=== PATIENT | female | born 1950 | race Caucasian/White ===

== ENCOUNTER → 2019-10-05 16:16 | Outpatient (BNVA) | payer MEDICARE, SELFPAY | PROVIDERS: Family Provider Nurse Practitioner Family; PCP Nurse Practitioner Family; Visit Provider Obstetrics & Gynecology | DX: R30.0 Dysuria (principal) | CPT/HCPCS: 81000 ==

== ENCOUNTER 2020-05-18 16:18 | Outpatient (CLI) | payer MEDICARE, SELFPAY ==
--- NOTE | 2020-05-18 16:52 | XR_ITS ---
WS: [id number] Chest 2 views, 05/18/2020 Clinical Data: sob Comparison: None. Findings: No nodules, masses or effusions are seen. The heart is normal. The pulmonary vascularity is not increased. No pneumonia or pneumothorax is seen. The aortic arch and descending aorta are minima lly tortuous. XR/XR chest 2V* [id number] Impression: Atherosclerosis.
== END 2020-05-18 16:19 | disposition home or self-care (01) ==
PROVIDERS: PCP Nurse Practitioner Family; Visit Provider Internal Medicine
DX: R06.02 Shortness of breath (principal); I70.90 Unspecified atherosclerosis
CPT/HCPCS: 71046

== ENCOUNTER 2020-05-25 12:58 | Outpatient (CLI) | payer MEDICARE, SELFPAY ==
[2020-05-25 15:23] LABS: Eosinophils % 1.3 %; Hematocrit 25.2 % (37.0-47.0); Hemoglobin 8.3 g/dL (11.5-15.3); Lymphocytes # 1.1 10^3/uL (0.8-4.8); Lymphocytes % 71.8 %; Mean Corpuscular HGB Conc 32.9 g/dL (30.0-36.0); Mean Corpuscular Hemoglobin 36.1 pg (28.0-34.0); Mean Corpuscular Volume 109.6 fL (81-99); Mean Platelet Volume 10.3 fL (7.4-10.4); Monocytes # 0.1 10^3/uL (0.2-0.9); Monocytes % 5.1 %; Neutrophils % 21.8 %; Nucleated Red Blood Cells % 0 %; Platelet Count 78 10^3/cmm (130-400); Red Cell Distribution Width 18.7 % (12.1-15.1); White Blood Count 1.6 10^3/uL (4.0-10.0)
[2020-05-25 15:32] LABS: Neutrophils # 0.34 10^3/uL (1.8-7.7)
[2020-05-25 15:33] LABS: LAB Peripheral Smear Sent for Review
--- NOTE | 2020-05-25 17:39 | ONC CON_ITS ---
Dr. Bradshaw New Patient Note Patient: Eulalia Kaplan Unit #: [id number]: 1950 Dicatated By: Callum Bradshaw M.D.Date of Visit: May 25, 2020 Onc MED New Patient/Consult Referring Physician: Dr. FLORESITA BENJAMIN M.D. Chief Complaint: Pancytopenia. History of Present Illness: This is a 70-year-old woman with pancytopenia and predominant neutropenia. This patient has generally been very healthy. She has been followed by Dr. Frazier in for lichen sclerosis et atrophicus. This was confirmed by biopsy of the vulva and perineum in January 2019 with pathology showing benign lichenoid dermatitis. She also has been getting topical steroid therapy for skin eruption on her legs. She is on medication for anxiety/depression. She has no other ongoing medical illnesses, though she does have a past history of ulcerative colitis, for which she had been on treatment between 1981 in 1995. She also has a history of hyperlipidemia, but she has not required treatment for it. She had recently been seen by Dr. Benjamin with extreme fatigue. Her laboratory studies from 05/17/2020 included a CBC which showed hemoglobin low at 10.3 g with hematocrit 30.4%. The red cell indices were macrocytic with MCV 105 and MCH 35.6. The white blood cell count was low at 2100 with a differential showing 20% neutrophils, 74% lymphocytes, 3% monocytes, 1% eosinophils, and 1% basophils. The platelet count was low at 105,000. Comprehensive metabolic profile showed normal renal function with BUN 16 and creatinine 0.64 mg/dL. The bilirubin and liver enzymes were normal. TSH was normal at 1.490 ???IU/mL. Her sed rate was normal at 5 mm/h, and her CRP was normal at 4 mg/L. Her PHILLIP screen was negative. B12 level was normal at 711 pg/mL. She is seen now for further evaluation. In reviewing her records in [facility], there are no prior blood counts for comparison. She does complain of extreme fatigue. She is exhausted with any activity. Her ECOG score is 2. She has not had good appetite, but her weight is up about 5 pounds. She has not had fever or night sweats. This morning she had chills in association with diarrhea and nausea. She does not complain of cough. She has shortness of breath and during the past 2 days she has been having episodes of pain in her neck and upper chest. She has taken aspirin and Tums for relief. She also reports having a history of vasovagal episodes. They have been very infrequent, but apparently severe. She was having no GI symptoms prior to this morning and she has had no problems with bladder function. She has some joint pain, but mainly just in her knees. She had slight headache this morning and last night. She has no focal neurologic symptoms. Past Medical History: Her medical history includes anxiety, depression, hyperlipidemia, lichen sclerosis et atrophicus, and ulcerative colitis. Past Surgical History: Her surgical/procedural history consists of bilateral cataract excisions and a Caesarean section. Medications: Clobetasol Propionate (0.05 %) Cream Topical Take as Directed, Lexapro 2 (20 mg) Tablet Oral daily, Melatonin 1 (3 mg) Tablet Oral at bedtime Allergies: Amoxicillin, Penicillins, and Sulfa Antibiotics. Social History: Ms. Kaplan is . She is a non-smoker. She does not drink alcohol. Family History: Father of stroke at age 83. Mother at age 82 with dementia. She has 2 brothers. One has diabetes and the other has some type of neurological disorder. One sister of lung cancer at age 62. She was a non-smoker. She has 4 living sisters. One has coronary artery disease and has been treated for vulvar cancer. Review Of Symptoms: Constitutional - She has very fatigued. She gets exhausted with activity. Her appetite has not been good, her weight is up about 5 pounds. She has not had fever, night sweats, or hot flashes. She did have some chills this morning. Her ECOG score is 2, Eyes - She has developed some blurring in her left eye, and she apparently needs laser surgery, ENMT - She has hearing loss. No sinus congestion/drainage. No mouth sores. No sore throat or difficulty swallowing, Hematologic/Lymphatic - She bruises very easily and she says she also bleeds easily, Respiratory - She has shortness of breath. She does not complain of cough. No pleuritic pain or hemoptysis, Cardiovascular - During the past 2 days she has had episodes of pain in her neck and upper chest. No palpitations, Gastrointestinal - She had diarrhea this morning and she also had some nausea with it, but no vomiting. Her bowels have otherwise been normal. She has not been aware of any blood in the stool or black stools, Genitourinary (F) - No dysuria or hematuria. No urinary frequency. No urgency or incontinence. She has been followed by Dr. Frazier for lichen sclerosis et atrophicus, Musculoskeletal - She has had some joint pain, mainly in her knees, Integumentary - She has had an itchy skin eruption on her legs. It is being managed with a topical steroid, Neurologic - She had a slight headache this morning and last night. She has lightheadedness if she gets up too fast. No numbness or tingling. No other focal neurologic symptoms, Psychiatric - She has anxiety and depression. She had recently increased her Lexapro dosage. She sleeps okay with meloxicam. Vital Signs: Performed on May 25, 2020 13:50: 9, 0, 25.83, 1.65 sq.m, 62 in, 97 %, 61 /min, 16 /min, 113/47 mm(hg), 98.0 F (LOW), and 141.2 lbs (HIGH). Physical Examination: Constitutional - She appears somewhat weak generally, Eyes - Sclerae nonicteric. Conjunctivae clear, ENMT - No lesions noted in the oral cavity, Neck - No mass or thyromegaly, Hematologic/Lymphatic - No cervical, clavicular, or axillary adenopathy, Respiratory - Lungs are clear with good air movement bilaterally, Cardiovascular - Heart rhythm is regular. There is a II/ systolic murmur. There is no gallop or rub noted, Abdomen - Soft and non-tender. Liver and spleen are not enlarged. There is no abdominal mass or ascites noted and there is no inguinal adenopathy, Back/Spine - No spine or CVA tenderness noted, Extremities - No edema. Pedal pulses are palpable bilaterally, Integumentary - There is hyperpigmentation in the popliteal fossa area bilaterally. The appearance is suggestive of treated eczema. There were no suspicious skin lesions noted. There is a fairly firm but movable subcutaneous nodule in the lateral aspect of the upper back on the right side. It measures about 4 cm, Neurologic - No focal neurologic deficits noted. Problem List: 1. Patient with pancytopenia and predominant neutropenia. There is associated red blood cell macrocytosis. With normal B12 level, the most likely cause would be myelodysplastic syndrome. Other bone marrow pathology, though, is obviously not excluded. 2. She has been on topical therapy for lichen sclerosis et atrophicus and for a skin eruption on her legs, presumably eczema. 3. Remote history of ulcerative colitis. 4. Hyperlipidemia, not requiring medication. 5. Anxiety/depression. Problems Addressed with this Encounter and Plan: 1. Patient with pancytopenia and predominant neutropenia. There is associated red blood cell macrocytosis. With normal B12 level, the most likely cause would be myelodysplastic syndrome. Other bone marrow pathology, though, is obviously not excluded. She has extreme weakness and fatigue, somewhat disproportionate to the degree of her anemia. The laboratory findings were reviewed with the patient and her son. We discussed the clinical implications. In the absence of any evidence of liver disease/hypersplenism, pancytopenia of this degree is indicative of pathology in the bone marrow, most likely myelodysplastic syndrome. While she has just mild anemia and thrombocytopenia, she does have more severe neutropenia, and she would be at risk for infection. Her weakness/fatigue is disproportionate to her anemia, but I suspect this is just a more nonspecific manifestation of her disease process. At this point I will repeat her CBC and I will review the blood smear. I also will repeat a CMP along with LDH level and serum iron studies. She will, however, need to undergo bone marrow aspiration/biopsy as soon as it can be arranged. Signed By: Callum Bradshaw M.D. <<Signature on File>>
[2020-05-25 23:50] LABS: Alanine Aminotransferase 15 U/L (0-33); Albumin Level 4.4 g/dL (3.5-5.2); Alkaline Phosphatase 70 IU/L (35-105); Anion Gap 13.8 (5-19); Aspartate Amino Transferase 20 U/L (0-32); Blood Urea Nitrogen 15 mg/dL (8-23); Calcium 9.2 mg/dL (8.5-10.5); Carbon Dioxide 24 mmol/L (22-29); Chloride 107 mmol/L (98-107); Ferritin 229 ng/mL (15-150); Globulin 2.6 g/dL (1.3-4.6); Glomerular Filtration Rate 99.4 mL/min (90-130); Glucose 86 mg/dL (65-115); Iron 119 ug/dL (37-145); Lactate Dehydrogenase 155 U/L (135-214); Osmolality Calculated 290 mOsm/kg (285-295); Percent Saturation 42.5 % (20-50); Potassium 4.8 mmol/L (3.5-5.1); Sodium 140 mmol/L (136-145); Total Bilirubin 0.5 mg/dL (0.15-1.2); Total Iron Binding Capacity 280 mcg/dl; Unsaturated Iron Binding 161 ug/dL (112-347)
== END 2020-05-25 12:59 | disposition home or self-care (01) ==
LOC: ONCMED 13:03
PROVIDERS: PCP Internal Medicine; Visit Provider Internal Medicine Medical Oncology
DX: D61.818 Other pancytopenia (principal); D70.9 Neutropenia, unspecified; D75.89 Other specified diseases of blood and blood-forming organs; D64.9 Anemia, unspecified; D69.6 Thrombocytopenia, unspecified
CPT/HCPCS: 36415; 80053; 82728; 83540; 83550; 83615; 85025; 99205

== ENCOUNTER 2020-05-27 08:08 | Outpatient (CLI) | payer MEDICARE, SELFPAY ==
[2020-05-27 08:50] LABS: Eosinophils % 1.2 %; Hematocrit 26.4 % (37.0-47.0); Hemoglobin 8.5 g/dL (11.5-15.3); Lymphocytes # 1.4 10^3/uL (0.8-4.8); Lymphocytes % 81.5 %; Mean Corpuscular HGB Conc 32.2 g/dL (30.0-36.0); Mean Corpuscular Hemoglobin 35.9 pg (28.0-34.0); Mean Corpuscular Volume 111.4 fL (81-99); Mean Platelet Volume 10.4 fL (7.4-10.4); Monocytes # 0.1 10^3/uL (0.2-0.9); Monocytes % 2.9 %; Neutrophils % 14.4 %; Nucleated Red Blood Cells % 0 %; Platelet Count 88 10^3/cmm (130-400); Red Blood Count 2.37 10^6/uL (4.1-5.3); Red Cell Distribution Width 18.5 % (12.1-15.1); White Blood Count 1.7 10^3/uL (4.0-10.0)
[2020-05-27 09:38] LABS: Neutrophils # 0.25 10^3/uL (1.8-7.7)
[2020-05-27 09:39] LABS: Slide Review Slide Review Perform
[2020-05-28 14:30] LABS: Coronavirus Test Green County Not Detected
== END 2020-05-27 08:09 | disposition home or self-care (01) ==
LOC: ONCMED 08:09
PROVIDERS: PCP Internal Medicine; Visit Provider Internal Medicine Medical Oncology
DX: D61.818 Other pancytopenia (principal); Z20.828 Contact with and (suspected) exposure to other viral communicable diseases; C92.00 Acute myeloblastic leukemia, not having achieved remission
CPT/HCPCS: 36415; 85025; 87635

== ENCOUNTER 2020-06-02 10:10 | Day surgery (SDC) | payer MEDICARE, SELFPAY ==
[2020-05-30 13:07] VITALS: BMI 25.6
[2020-06-02 10:31] VITALS: BP 126/42; PULSE 67; RESP 16; TEMP 36.9; O2SAT 97
[2020-06-02] MEDS: sodium chloride 0.9% 1,000 ML 30 ML IV (10:36)
--- NOTE | 2020-06-02 10:50 | ANES.PREANE2 ---
Pre-Anesthetic Assessment Pre-Anesthetic Assessment: Height/Weight: Height 1.57 m Weight 63.503 kg Temp Pulse Resp BP Pulse Ox 98.4 F 67 16 126/42 97 06/02/20 10:31 06/02/20 10:31 06/02/20 10:31 06/02/20 10:31 06/02/20 10:31 Preop Diagnosis: None Proposed Procedure: Operation Date: 06/02/20 11:30 Proposed Procedures p Bone Marrow Biopsy With Aspiration(Not Applicable) - Souleymane Quintana MD Familial anesthetic complications: None Was Beta Ibis taken within 24 hours: N/A Last intake: Intake Last Liquid Date 06/01/20 Last Liquid Time 22:00 Last Solid Date 06/01/20 Last Solid Time 22:00 Social: Social History: No alcohol and No tobacco Exam: Pre-Anes Outpt Exam: alert, oriented x 3, clear to auscultation bilaterally and regular rate & rhythm Airway: Cervical ROM: WNL MP: 2 Dentition: Full CV/HEM: Comments: anemia, low wbc, and low platelets Anesthetic Plan: ASA status: 1 Anesthesia: MAC Risk of > 500 ml blood loss (7ml/kg in children): No PFSH Anesthesia PFSH: Medical History Depression Symptoms controlled on Lexapro managed by her primary care provider Lichen sclerosus Diagnosed in January 2019 with a vulvar biopsy-patient has not been compliant with using the clobetasol. No pertinent past medical history Patient denies history of PE/DVT/clotting disorders, asthma, lung, liver heart, thyroid, kidney disease, hypertension or diabetes. PCP: [facility] Ulcerative colitis States that she has had ulcerative colitis since about the age of 32. She states she last had a colonoscopy in [place] in 2018 that was within normal limits. She is not currently on any medication for this Surgical History S/P section Performed in the 1970s via vertical midline infraumbilical incision Family History Sister Hyperlipidemia Hypertension Vulvar cancer Brother Hyperlipidemia Hypertension Diabetes Father Stroke Denies family history of Cervical cancer Colon cancer Ovarian cancer DVT (deep venous thrombosis) Breast cancer Pulmonary embolism Uterine cancer Social History Smoking and tobacco status: never smoked Alcohol intake: unknown Data Anesthesia Cardiac Studies: No Data to Display
--- NOTE | 2020-06-02 11:54 | PM.BMB ---
Bone Marrow Biopsy Bone Marrow Biopsy: I was consulted by [] office regarding bone marrow biopsy on [Eulalia Kaplan]. Briefly, the patient is a [70] year old [female] with [pancytopenia]. In the Outpatient Services Department, with nursing staff and laboratory technologists in attendance, the procedure was discussed with the patient. Appropriate consent form had been signed. Appropriate alternatives, benefits and risks of procedure were discussed with the patient and she was pre-operatively assessed with a history and physical by myself and cleared for the biopsy procedure. The patient did request IV sedation and that was provided by the Anesthesia Department. Under aseptic conditions right posterior iliac area was cleaned and prepped, local anesthesia was given, about 15 cc bone marrow aspirate and core biopsy was obtained, patient tolerated procedure very well, hemostasis obtained, postprocedure instructions were given to the nursing. Specimen was sent for routine histo path, flow cytometry, cytogenetic and FISH for MDS Thank you for allowing me to participate in this patient's care and diagnosis. Coding Level of Care Code Acute Rn Utilization Management Um for Cb Mccall
[2020-06-02 11:55] VITALS: BP 84/43; PULSE 58; RESP 12; TEMP 36.1; O2SAT 99
[2020-06-02 12:23] VITALS: BP 122/55; PULSE 61; RESP 18; O2SAT 99
--- NOTE | 2020-06-02 14:07 | ANE.PACU2 ---
Inpatient post-anesthesia follow up: Airway intact: Yes Vital signs: Temperature 97 F Pulse Rate 61 Respiratory Rate 18 Blood Pressure 122/55 Pulse Oximetry 99 Oxygen Delivery Me thod Room Air Oxygen Flow Rate 2 Fraction of Inspir ed Oxygen Hydration adequate: Yes Nausea and vomiting: No Pain level: 1 Mental status: Baseline
[2020-06-03 13:14] LABS: Miscellaneous Test See Scanned Lab Rpt
== END 2020-06-02 12:38 | disposition home or self-care (01) ==
PROVIDERS: PCP Internal Medicine; Visit Provider Internal Medicine Hematology & Oncology
PROC: (CPT 38221; principal; 2020-06-02 11:30)
DX: D61.818 Other pancytopenia (principal); Z82.49 Family history of ischemic heart disease and other diseases of the circulatory system; Z80.49 Family history of malignant neoplasm of other genital organs
CPT/HCPCS: 12345; 38222; 88184; 88185; 88237; 88264; 88305; J2704; J7030

== ENCOUNTER 2020-06-07 07:47 | Outpatient (CLI) | payer MEDICARE, SELFPAY ==
--- NOTE | 2020-06-07 17:38 | ONC FU_ITS ---
Dr. Bradshaw Patient Follow-Up Note Patient: Eulalia Kaplan Unit #: [id number]: 1950 Dicatated By: Callum Bradshaw M.D.Date of Visit:Jun 07, 2020 Onc Med Follow-up/Prog Note Chief Complaint: Pancytopenia. History of Present Illness: This is a 70-year-old woman with pancytopenia and predominant neutropenia. This patient has generally been very healthy. She has been followed by Dr. Frazier in for lichen sclerosis et atrophicus. This was confirmed by biopsy of the vulva and perineum in January 2019 with pathology showing benign lichenoid dermatitis. She also has been getting topical steroid therapy for skin eruption on her legs. She is on medication for anxiety/depression. She has no other ongoing medical illnesses, though she does have a past history of ulcerative colitis, for which she had been on treatment between 1981 in 1995. She also has a history of hyperlipidemia, but she has not required treatment for it. She had recently been seen by Dr. Rosales with extreme fatigue. Her laboratory studies from 05/17/2020 included a CBC which showed hemoglobin low at 10.3 g with hematocrit 30.4%. The red cell indices were macrocytic with MCV 105 and MCH 35.6. The white blood cell count was low at 2100 with a differential showing 20% neutrophils, 74% lymphocytes, 3% monocytes, 1% eosinophils, and 1% basophils. The platelet count was low at 105,000. Comprehensive metabolic profile showed normal renal function with BUN 16 and creatinine 0.64 mg/dL. The bilirubin and liver enzymes were normal. TSH was normal at 1.490 ???IU/mL. Her sed rate was normal at 5 mm/h, and her CRP was normal at 4 mg/L. Her PHILLIP screen was negative. B12 level was normal at 711 pg/mL. I had seen her initially on 05/25/2020. By that time her hemoglobin had decreased to 8.3 g with hematocrit 25.2%. The red cell indices were mildly macrocytic. The white blood cell count was low at 1600 with the differential showing 21% neutrophils, 71% lymphocytes, 5% monocytes, and 1% eosinophils. Platelet count was moderately decreased at 78,000. With those findings she underwent bone marrow aspiration/biopsy on 06/02/2020. The marrow was mildly hypercellular, estimated at 30 to 50%. There were subtle dyspoietic features noted. Blast enumeration on the aspirate was noted to be challenging due to a paucity of spicules in the sample. Immunohistochemical stains on the biopsy showed strikingly increased CD34 positive blasts estimated at greater than 40 to 50% of the total cells. 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 Results from the MDS FISH panel are still pending. Medications: Clobetasol Propionate (0.05 %) Cream Topical Take as Directed, Lexapro 2 (20 mg) Tablet Oral daily, Melatonin 1 (3 mg) Tablet Oral at bedtime Allergies: Amoxicillin, Penicillins, and Sulfa Antibiotics. Vital Signs: Performed on Jun 07, 2020 15:30 Height - 62.00 in Weight - 141.8 lbs (HIGH) BSA - 1.65 sq.m BMI - 25.94 Temperature - 97.3 F (LOW) Pulse - 63 /min Respiration - 18 /min BP - 126/64 mm(hg) O2 Sat - 98 % Pain - 0 Problem List: 1. 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 Bone marrow aspiration/biopsy on 06/02/2020 showed 40 to 50% blasts based on bone marrow biopsy immunohistochemical stains. 2. She has been on topical therapy for lichen sclerosis et atrophicus and for a skin eruption on her legs, presumably eczema. 3. Remote history of ulcerative colitis. 4. Hyperlipidemia, not requiring medication. 5. Anxiety/depression. Problems Addressed with this Encounter and Plan: Patient with acute myeloid leukemia presenting with pancytopenia and predominant neutropenia. Her bone marrow aspiration/biopsy on 06/02/2020 showed 40 to 50% blasts based on bone marrow biopsy immunohistochemical stains. Results of the FISH panel for MDS are still pending as are results of the standard chromosome analysis. The findings on the bone marrow aspiration/biopsy were reviewed with the patient and her family. Based on her presentation I had suspected myelodysplastic syndrome, but there were no overt indications of acute leukemia. However, based on the bone marrow biopsy immunohistochemical stains, the estimated blast count in the bone marrow is 40 to 50% or greater, which is consistent with acute leukemia. In this situation, I am recommending referral to a tertiary care facility, preferably [facility], to complete evaluation for the leukemia and for treatment recommendations. She indicates that she is agreeable and arrangements will be made for an appointment there as soon as possible. Signed By: Callum Bradshaw M.D. <<Signature on File>>
== END 2020-06-07 07:48 | disposition home or self-care (01) ==
LOC: ONCMED 07:48
PROVIDERS: PCP Internal Medicine; Visit Provider Internal Medicine Medical Oncology
DX: C92.00 Acute myeloblastic leukemia, not having achieved remission (principal); D61.818 Other pancytopenia; L90.0 Lichen sclerosus et atrophicus; L30.9 Dermatitis, unspecified; K51.90 Ulcerative colitis, unspecified, without complications; E78.5 Hyperlipidemia, unspecified; F41.9 Anxiety disorder, unspecified; F32.9 Major depressive disorder, single episode, unspecified; Z79.899 Other long term (current) drug therapy
CPT/HCPCS: 99214

== ENCOUNTER 2020-06-29 08:10 | Outpatient (RCR) | payer MEDICARE, SELFPAY ==
[2020-06-27 11:28] LABS: Hematocrit 28.4 % (37.0-47.0); Hemoglobin 9.4 g/dL (11.5-15.3); Mean Corpuscular HGB Conc 33.1 g/dL (30.0-36.0); Mean Corpuscular Volume 99.6 fL (81-99); Mean Platelet Volume 9.7 fL (7.4-10.4); Red Blood Count 2.85 10^6/uL (4.1-5.3); Red Cell Distribution Width 17.8 % (12.1-15.1)
[2020-06-27 11:36] LABS: Alanine Aminotransferase 12 U/L (0-33); Albumin Level 4.3 g/dL (3.5-5.2); Alkaline Phosphatase 74 IU/L (35-105); Anion Gap 13.4 (5-19); Aspartate Amino Transferase 15 U/L (0-32); Blood Urea Nitrogen 18 mg/dL (8-23); Calcium 9.2 mg/dL (8.5-10.5); Carbon Dioxide 28 mmol/L (22-29); Chloride 98 mmol/L (98-107); Globulin 2.8 g/dL (1.3-4.6); Glomerular Filtration Rate 83.2 mL/min (90-130); Glucose 85 mg/dL (65-115); Lactate Dehydrogenase 168 U/L (135-214); Osmolality Calculated 281 mOsm/kg (285-295); Potassium 4.4 mmol/L (3.5-5.1); Sodium 135 mmol/L (136-145); Total Bilirubin 0.6 mg/dL (0.15-1.2); Total Protein 7.1 g/dL (6.6-8.7)
[2020-06-27 13:16] LABS: Platelet Count 26 10^3/cmm (130-400); White Blood Count 0.8 10^3/uL (4.0-10.0)
[2020-06-27 13:17] LABS: Absolute Neutrophil 0.1 10^3/cmm (1.4-6.5); Absolute Segmented Neutrophil 0.1 10/cmm (1.6-7.1); Eosinophils 0 %; Lymphocytes 86 %; Platelet Estimate Decreased (Normal); Segmented Neutrophils 10 %; Total Cells Counted 50 (0-100)
[2020-06-27 13:18] LABS: Macrocytosis 1+
[2020-06-29 11:42] LABS: Hematocrit 27.2 % (37.0-47.0); Hemoglobin 8.9 g/dL (11.5-15.3); Lymphocytes # 0.6 10^3/uL (0.8-4.8); Lymphocytes % 92.8 %; Mean Corpuscular HGB Conc 32.7 g/dL (30.0-36.0); Mean Corpuscular Hemoglobin 33.3 pg (28.0-34.0); Mean Corpuscular Volume 101.9 fL (81-99); Mean Platelet Volume 9.9 fL (7.4-10.4); Monocytes % 2.9 %; Neutrophils % 4.3 %; Nucleated Red Blood Cells % 0 %; Red Blood Count 2.67 10^6/uL (4.1-5.3); Red Cell Distribution Width 17.7 % (12.1-15.1)
[2020-06-29 11:45] VITALS: BP 117/59; PULSE 59; RESP 18; TEMP 37.3; O2SAT 97
[2020-06-29] MEDS: diphenhydrAMINE 25 mg Capsule PO (12:00)
[2020-06-29] MEDS: acetaminophen 325 mg Tablet 650 MG PO (12:00)
[2020-06-29] MEDS: hydrocortisone 10 mg Tablet 50 MG PO (12:00)
[2020-06-29 12:40] VITALS: BP 116/58; PULSE 61; RESP 18; TEMP 37.2; O2SAT 96
[2020-06-29 12:45] VITALS: BP 118/56; PULSE 63; RESP 18; TEMP 37.1; O2SAT 94
[2020-06-29 13:05] LABS: Neutrophils # 0.03 10^3/uL (1.8-7.7); Platelet Count 16 10^3/cmm (130-400); White Blood Count 0.7 10^3/uL (4.0-10.0)
[2020-06-29 13:06] LABS: Slide Review Slide Review Perform
[2020-06-29 14:08] VITALS: BP 116/58; PULSE 61; RESP 18; TEMP 37.2; O2SAT 96
== END 2020-06-29 22:00 | disposition home or self-care (01) ==
LOC: ONCMED 08:10
PROVIDERS: PCP Internal Medicine; Visit Provider Internal Medicine Medical Oncology
DX: C92.00 Acute myeloblastic leukemia, not having achieved remission (principal); D61.818 Other pancytopenia
CPT/HCPCS: 36430; 80053; 83615; 85007; 85025; 85027; 86850; 86900; 86920; J1642; J8499; P9040

== ENCOUNTER 2020-06-29 22:59 | Inpatient (IN) | payer MEDICARE, SELFPAY ==
--- NOTE | 2020-06-29 23:08 | XR_ITS ---
WS: [id number] Portable AP upright chest, 06/29/2020 Clinical Data: fever Comparison: PA and lateral chest, 05/18/2020. Findings: No nodules, masses or effusions are seen. The heart is normal. The pulmonary vascularity is not increased. No pneumonia or pneumothorax is seen. There is a right subclavian catheter ending in the superior vena cava. The aortic arch and descending aorta are tortuous. There is a minimal opacity adjacent to left cardiac border which may represent mild atelectasis. XR/XR chest 1V portable [id number] Impression: Atherosclerosis.
[2020-06-29 23:12] VITALS: BP 135/72; PULSE 63; RESP 18; TEMP 37.7; O2SAT 96; BMI 26.4
[2020-06-29 23:54] LABS: Add Urine Microscopic? NO
[2020-06-29] MEDS: sodium chloride 0.9% 1,000 ML 999 ML IV (23:56)
[2020-06-29 23:59] LABS: Hematocrit 24.9 % (37.0-47.0); Lymphocytes # 0.9 10^3/uL (0.8-4.8); Lymphocytes % 96.9 %; Mean Corpuscular HGB Conc 32.1 g/dL (30.0-36.0); Mean Corpuscular Hemoglobin 32.5 pg (28.0-34.0); Mean Corpuscular Volume 101.2 fL (81-99); Mean Platelet Volume 11.3 fL (7.4-10.4); Neutrophils % 2.1 %; Nucleated Red Blood Cells % 0 %; Red Blood Count 2.46 10^6/uL (4.1-5.3); Red Cell Distribution Width 17.2 % (12.1-15.1)
[2020-06-30] VITALS (9 sets, daily range): BP systolic 133–149; BP diastolic 62–70; PULSE 0–80; RESP 17–18; TEMP 36.8–37.7; O2SAT 94–98
--- NOTE | 2020-06-30 00:02 | W.ED.FEVER ---
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 She had a platelet transfusion today had a fever of 101 later this afternoon. She states she had some slight weakness as well. She states that her oncologist at [facility] told to come to the ER immediately. She denies any vomiting diarrhea. Denies any dysuria. Denies any sick contacts. MD elicited complaint: fever Associated symptoms: Deny abdominal pain, chest pain, diarrhea, dysuria, headache(s), nausea or vomiting Review of Systems Const: Reports: fever(s) Eyes: Denies: blurry vision or eye discomfort ENMT: Denies: throat pain or dental pain Card: Denies: chest pain Resp: Denies: dyspnea GI: Denies: abdominal pain, nausea, vomiting or diarrhea : Denies: dysuria Musc: Denies: neck pain or back pain Skin/Breast: Denies: rash Neuro: Denies: headache(s) Psych: Denies: depression Mak/Lymph: Denies: easy bruising All/Imm: Denies: urticaria PFSH ED PFSH: Medical History (Updated 06/30/20 @ 01:02 by ) Depression Symptoms controlled on Lexapro managed by her primary care provider Lichen sclerosus Diagnosed in January 2019 with a vulvar biopsy-patient has not been compliant with using the clobetasol. No pertinent past medical history Patient denies history of PE/DVT/clotting disorders, asthma, lung, liver heart, thyroid, kidney disease, hypertension or diabetes. PCP: TONEY Spring Ulcerative colitis States that she has had ulcerative colitis since about the age of 32. She states she last had a colonoscopy in [place] in 2019 that was within normal limits. She is not currently on any medication for this Surgical History S/P section Performed in the 1970s via vertical midline infraumbilical incision Family History Sister Hyperlipidemia Hypertension Vulvar cancer Brother Hyperlipidemia Hypertension Diabetes Father Stroke Denies family history of Cervical cancer Colon cancer Ovarian cancer DVT (deep venous thrombosis) Breast cancer Pulmonary embolism Uterine cancer Social History Smoking and tobacco status: never smoked Alcohol intake: unknown Physical Exam Const: COMMON NORMALS: no acute distress, patient oriented x3 and healthy appearing HENMT: COMMON NORMALS: normocephalic and atraumatic HEAD & SCALP: normocephalic and atraumatic Eye: COMMON NORMALS: Equal, round and reactive pupils present and EOMs intact bilaterally PUPIL: Yes Equal, round and reactive pupils present Neck/C-Spine: COMMON NORMALS: full ROM and supple Chest: COMMONS NORMALS: normal inspection of the chest and normal palpation of entire chest wall Resp: COMMON NORMALS: normal respiratory effort, No retractions, No use of accessory muscles and clear to auscultation bilaterally AUSCULTATION: clear to auscultation bilaterally Cardio: COMMON NORMALS: regular rate, regular rhythm and No murmurs present (Cardio) RATE: regular rate RHYTHM: regular rhythm GI: COMMON NORMALS: Normal to inspection, nondistended, normoactive bowel sounds present, Soft to palpation, non-tender and no masses PALPATION: Yes Soft to palpation Extremity: COMMON NORMALS: normal to inspection and full ROM Neuro: COMMON NORMALS: patient oriented x3, moves all extremities and no focal motor deficits Psych: COMMON NORMALS: mental status grossly normal, Normal thought process present and cooperative THOUGHT PROCESS: Normal thought process present Skin: COMMON NORMALS: no rashes or lesions noted and no wounds GENERAL SKIN EXAM: no rashes or lesions noted Course Vital Signs: Vital signs: Vital Signs Temperature 99.9 F H 06/29/20 23:12 Pulse Rate 59 L 06/30/20 00:01 Respiratory Rate 18 06/30/20 00:01 Blood Pressure 133/69 06/30/20 00:01 Pulse Oximetry 96 06/30/20 00:01 MDM - Fever MDM Narrative: Medical decision making narrative: Patient presents here with a fever and is neutropenic. She has a history of CML. Patient is well-appearing here and does not have a UTI or pneumonia. Will admit prophylactically give antibiotics and follow blood cultures. I did speak to the hospitalist. Lab Data: Labs: Lab Results 06/29/20 06/29/20 06/29/20 Range/Units 23:45 23:48 23:48 WBC 1.0 L (4.0-10.0) 10^3/ uL RBC 2.46 L (4.1-5.3) 10^6/u L Hgb 8.0 L (11.5-15.3) g/dL Hct 24.9 L (37.0-47.0) % MCV 101.2 H (81-99) fL MCH 32.5 (28.0-34.0) pg MCHC 32.1 (30.0-36.0) g/dL RDW 17.2 H (12.1-15.1) % Plt Count 13 L* (130-400) 10^3/c mm MPV 11.3 H (7.4-10.4) fL Neut % (Auto) 2.1 % Lymph % (Auto) 96.9 % [place] % (Auto) 1.0 % Eos % (Auto) 0.0 % Baso % (Auto) 0.0 % Neut # (Auto) 0.02 L* (1.8-7.7) 10^3/u L Lymph # (Auto) 0.9 (0.8-4.8) 10^3/u L [place] # (Auto) 0.0 L (0.2-0.9) 10^3/u L Eos # (Auto) 0.0 (0.0-0.8) 10^3/u L Baso # (Auto) 0.0 (0.0-0.1) 10^3/u L Nucleated RBC % (a uto) 0 % Nucleated RBCs # 0.0 /100WBC PT 13.50 (12.1-14.9) SECO NDS INR 1.00 (0.8-1.2) Sodium (136-145) mmol/L Potassium (3.5-5.1) mmol/L Chloride (98-107) mmol/L Carbon Dioxide (22-29) mmol/L Anion Gap (5-19) BUN (8-23) mg/dL Creatinine (0.5-0.9) mg/dL GFR Calculation (90-130) mL/min Glucose (65-115) mg/dL Calculated Osmolal ity (285-295) mOsm/k g Lactate (0.5-2.2) mmol/L Calcium (8.5-10.5) mg/dL Total Bilirubin (0.15-1.2) mg/dL AST (0-32) U/L ALT (0-33) U/L Alkaline Phosphata se (35-105) IU/L Total Protein (6.6-8.7) g/dL Albumin (3.5-5.2) g/dL Globulin (1.3-4.6) g/dL Urine Color Yellow (Yellow) Urine Appearance Clear (CLEAR) Urine pH 6.5 (5-7) Ur Specific Gravit y 1.010 (1.005-1.030) Urine Protein Neg (Negative) Urine Glucose (UA) Norm (Normal) Urine Ketones Negative (Negative) Urine Blood Neg (Negative) Urine Nitrate Negative (Negative) Urine Bilirubin Neg (Negative) Urine Urobilinogen Norm (Negative) mg/dL Ur Leukocyte [place] ase Negative (Negative) 06/29/20 06/29/20 Range/Units 23:48 23:48 WBC (4.0-10.0) 10^3/ uL RBC (4.1-5.3) 10^6/u L Hgb (11.5-15.3) g/dL Hct (37.0-47.0) % MCV (81-99) fL MCH (28.0-34.0) pg MCHC (30.0-36.0) g/dL RDW (12.1-15.1) % Plt Count (130-400) 10^3/c mm MPV (7.4-10.4) fL Neut % (Auto) % Lymph % (Auto) % [place] % (Auto) % Eos % (Auto) % Baso % (Auto) % Neut # (Auto) (1.8-7.7) 10^3/u L Lymph # (Auto) (0.8-4.8) 10^3/u L [place] # (Auto) (0.2-0.9) 10^3/u L Eos # (Auto) (0.0-0.8) 10^3/u L Baso # (Auto) (0.0-0.1) 10^3/u L Nucleated RBC % (a uto) % Nucleated RBCs # /100WBC PT (12.1-14.9) SECO NDS INR (0.8-1.2) Sodium 133 L (136-145) mmol/L Potassium 4.0 (3.5-5.1) mmol/L Chloride 100 (98-107) mmol/L Carbon Dioxide 26 (22-29) mmol/L Anion Gap 11.0 (5-19) BUN 14 (8-23) mg/dL Creatinine 0.7 (0.5-0.9) mg/dL GFR Calculation 83.2 L (90-130) mL/min Glucose 89 (65-115) mg/dL Calculated Osmolal ity 276 L (285-295) mOsm/k g Lactate 0.7 (0.5-2.2) mmol/L Calcium 8.5 (8.5-10.5) mg/dL Total Bilirubin 0.5 (0.15-1.2) mg/dL AST 16 (0-32) U/L ALT 11 (0-33) U/L Alkaline Phosphata se 71 (35-105) IU/L Total Protein 6.8 (6.6-8.7) g/dL Albumin 3.8 (3.5-5.2) g/dL Globulin 3.0 (1.3-4.6) g/dL Urine Color (Yellow) Urine Appearance (CLEAR) Urine pH (5-7) Ur Specific Gravit y (1.005-1.030) Urine Protein (Negative) Urine Glucose (UA) (Normal) Urine Ketones (Negative) Urine Blood (Negative) Urine Nitrate (Negative) Urine Bilirubin (Negative) Urine Urobilinogen (Negative) mg/dL Ur Leukocyte [place] ase (Negative) Imaging Data^: CXR: Attestation: I personally reviewed and interpreted this imaging study as follows: Radiologist's impression: no acute abnormality Discharge Plan Discharge Patient Disposition: Admitted As Inpatient Admit Provider: Hill Lovell Clinical Impression: Neutropenic fever, CML (chronic myelocytic leukemia) Condition: Stable Coding Level of Care Code ED Production Tester for Chg Fwd Exam Comprehensive
[2020-06-30 00:03] LABS: Bilirubin Urine Neg (Negative); Blood Urine Neg (Negative); Glucose Urine UA Norm (Normal); Ketones Urine Negative (Negative); Leukocyte Esterase Urine Negative (Negative); Nitrate Urine Negative (Negative); Protein Urine Neg (Negative); Urine Appearance Clear (CLEAR); Urine Color Yellow (Yellow); Urobilinogen Urine Norm (Negative); pH Urine 6.5 (5-7)
[2020-06-30 00:13] LABS: Alanine Aminotransferase 11 U/L (0-33); Albumin Level 3.8 g/dL (3.5-5.2); Alkaline Phosphatase 71 IU/L (35-105); Aspartate Amino Transferase 16 U/L (0-32); Blood Urea Nitrogen 14 mg/dL (8-23); Calcium 8.5 mg/dL (8.5-10.5); Carbon Dioxide 26 mmol/L (22-29); Chloride 100 mmol/L (98-107); Glomerular Filtration Rate 83.2 mL/min (90-130); Glucose 89 mg/dL (65-115); Lactate (Lactic Acid level) 0.7 mmol/L (0.5-2.2); Osmolality Calculated 276 mOsm/kg (285-295); Sodium 133 mmol/L (136-145); Total Bilirubin 0.5 mg/dL (0.15-1.2); Total Protein 6.8 g/dL (6.6-8.7)
[2020-06-30 00:32] LABS: Platelet Count 13 10^3/cmm (130-400)
[2020-06-30 00:33] LABS: Neutrophils # 0.02 10^3/uL (1.8-7.7); Slide Review Slide Review Perform
[2020-06-30] MEDS: aztreonam 2,000 MG in sodium chloride 0.9% (plus) 100 ML 200 MG IV (00:34)
[2020-06-30] MEDS: sodium chloride 0.9% 1,000 ML 999 ML IV (01:05)
[2020-06-30] MEDS: vancomycin 1,000 MG in sodium chloride 0.9% 250 ML 250 MG IV ×2 (01:14→02:35)
--- NOTE | 2020-06-30 01:20 | P.HP_ITS ---
Providers/Chief Complaint Admitting Physician: Hill Lovell Primary Care Provider: Mercy Rosales MD Chief Complaint: running fever/cancer patient History of Present Illness Eulalia Kaplan is a 70 year old female simply diagnosed with AML about 2 months ago currently on chemotherapy with IV and oral was referred to the emergency department because patient developed fever during platelet transfusion yesterday in the morning. Patient denies any abdominal pain no nausea vomiting or diarrhea. She reports intermittent coughing. She has right subclavian central venous catheter for chemotherapy. Blood work in the emergency department here demonstrated severe neutropenia, with absolute neutrophil count of 20. Chest x-ray shows no infiltrate. UA no evidence of UTI. Patient is admitted for further management. Review of Systems Narrative: Except as documented, all other systems reviewed are negative Medications/Allergies Home Medications Medication Instructions Recorded Confirmed Last Taken Type clobetasol 0.05 % topical cream 1 applic TOPICAL .twice weekly #60 10/05/19 06/02/20 06/01/20 Rx gm escitalopram oxalate 20 mg tablet 40 mg PO DAILY tab 05/16/20 06/02/20 06/01/20 History Allergies Allergy/AdvReac Type Severity Reaction Status Date / Time amoxicillin Allergy Rash, Verified 05/16/20 10:20 tongue swelling Sulfa (Sulfonamide Allergy Rash Verified 05/16/20 10:20 Antibiotics) PFSH Acute PFSH: Medical History (Updated 06/30/20 @ 01:40 by Hill Lovell MD) Depression Symptoms controlled on Lexapro managed by her primary care provider Lichen sclerosus Diagnosed in January 2019 with a vulvar biopsy-patient has not been compliant with using the clobetasol. No pertinent past medical history Patient denies history of PE/DVT/clotting disorders, asthma, lung, liver heart, thyroid, kidney disease, hypertension or diabetes. PCP: TONEY Spring Ulcerative colitis States that she has had ulcerative colitis since about the age of 32. She states she last had a colonoscopy in [place] in 2018 that was within normal limits. She is not currently on any medication for this Surgical History S/P section Performed in the 1970s via vertical midline infraumbilical incision Family History Sister Hyperlipidemia Hypertension Vulvar cancer Brother Hyperlipidemia Hypertension Diabetes Father Stroke Denies family history of Cervical cancer Colon cancer Ovarian cancer DVT (deep venous thrombosis) Breast cancer Pulmonary embolism Uterine cancer Social History Smoking and tobacco status: never smoked Alcohol intake: unknown Vitals/I&O/Wt Last Vital Signs Temp 99.9 F H 06/29/20 23:12 Pulse 59 L 06/30/20 00:01 Resp 18 06/30/20 00:01 BP 133/69 06/30/20 00:01 Pulse Ox 96 06/30/20 00:01 06/29/20 06/29/20 06/30/20 14:59 22:59 06:59 Intake Total 1000 / 1000 Balance 1000 / 1000 Weight last 48 hrs Weight 63.503 kg Physical Exam Const: COMMON NORMALS: no acute distress, average body habitus, patient oriented x3 and well nourished HENMT: COMMON NORMALS: moist oral mucous membranes and oropharynx normal Eye: COMMON NORMALS: Equal, round and reactive pupils present, EOMs intact bilaterally, conjunctivae normal and no scleral icterus Neck/C-Spine: COMMON NORMALS: full ROM, no lymphadenopathy and no meningeal signs Lymph: LYMPHATIC: no lymphadenopathy noted Chest: CHEST: Yes Symmetrical chest wall rise and Yes other (Right anterior chest subclavian catheter) Resp: COMMON NORMALS: normal respiratory effort, No use of accessory muscles and clear to auscultation bilaterally Cardio: COMMON NORMALS: no JVD, regular rate, regular rhythm, S1 normal heart sound present, S2 normal heart sound present and No murmurs present (Cardio) GI: COMMON NORMALS: Normal to inspection, nondistended, normoactive bowel sounds present, Soft to palpation, non-tender, No hepatosplenomegaly present and no bruits : COMMON NORMALS: Yes no CVA tenderness Back/Pelvis: COMMON NORMALS: no thoracic nor lumbar tenderness and thoraco-lum bar ROM normal Extremity: COMMON NORMALS: normal to inspection, full ROM, no clubbing, cyanosis or edema and no pedal edema Neuro: COMMON NORMALS: patient oriented x3, CN's II-XII intact bilaterally and no focal motor deficits Psych: COMMON NORMALS: mental status grossly normal, Normal thought process present, normal affect and speech normal Skin: COMMON NORMALS: no rashes or lesions noted, turgor normal and no jaundice Data : 06/29/20 23:48 06/29/20 23:48 Micro: Microbiology 06/30/20 00:32 Blood Culture - Preliminary Blood SPECIMEN COLLECTED 06/29/20 23:48 Blood Culture - Preliminary Blood SPECIMEN COLLECTED A&P Assessment and plan (1) Neutropenic fever: Status: Acute (2) CML (chronic myelocytic leukemia): Status: Acute (3) Pancytopenia: Status: Acute Additional A&P Information Admit to the medical floor. Start empiric IV Azactam and vancomycin. IV hydration Follow blood cultures obtained in the ED Consults with hematology oncology-Dr. Bradshaw. Monitor CBC. Patient want any neupogen or thrombocytopenia treatment to be approved by Dr. Bradshaw or Joid. Patient is on oral Diflucan at home which will be continued. Attestations Medical Necessity Statement*: Patient presented with neutropenic fever. She will need to be hospitalized for monitoring and IV antibiotics. She is expected to spend more than 2 midnights. Coding Level of Care Code Acute Sap Gatherer for [facility] Fwd Exam Comprehensive Diagnoses Neutropenic fever D70.9; R50.81 CML (chronic myelocytic leukemia) C92.10 Pancytopenia D61.818
[2020-06-30 01:31] LABS: SARS Covid-2 Antigen Negative (Negative)
--- NOTE | 2020-06-30 02:19 | PC.PHAR ---
Vancomycin is dosed at 1500mg IVPB every 24 hours to produce a predicted trough level of 13.51 (population based pharmacokinetic analysis). A trough level has been ordered from the lab to be obtained before the fourth dose to confirm and adjust if needed.
[2020-06-30] MEDS: sodium chloride 0.9% 1,000 ML 75 ML IV (02:34)
[2020-06-30] MEDS: aztreonam 1,000 MG in sodium chloride 0.9% (plus) 50 ML 100 MG IV ×2 (03:20→15:14)
[2020-06-30] MEDS: vancomycin 1,500 MG/300 ML PIGGYBACK 150 MG IV (03:21)
--- NOTE | 2020-06-30 04:01 | PC.NURSE ---
Dressing reinforced on central line. Tegaderm to cover existing incision. New Picc line, asymptomatic
--- NOTE | 2020-06-30 04:05 | PC.NURSE ---
PM assessment Pt came to ED with Neutropenic fever after receiving platelets and chemotherapy. Pt is a [facility] patient. Pt is no longer febrile. Pt reports no pain, heart/lung sounds are WNL. Pt ambulates well. She is on bleeding and neutropenic reverse isolation precautions. She is currently on tele, wearing scd's, and has fluids and IV vancomycin running. Pt is the the of Dileep Haider in [facility]. Her son, Chepe, is primarily involved with medication and treatments. Pt has a newly placed Right subclavian Central line that will draw/push easily. Absolute neutrophils are 0.02, pt presents with generalized petechia, WBC are 1.0, Rapid Covid is negative, pt refuses any treatment that is not directly ordered by Dr. Bradshaw or oncology in [facility] care team.
[2020-06-30] MEDS: acetaminophen 325 mg Tablet 650 MG PO (05:46)
[2020-06-30] MEDS: famotidine 20 mg Tablet PO (10:07)
[2020-06-30] MEDS: escitalopram 10 mg Tablet 40 MG PO (10:07)
--- NOTE | 2020-06-30 13:45 | PM.PN ---
Subjective Subjective: Interval history: She denies headache, trouble breathing or chest pain. No nausea vomiting or diarrhea. She is having sore throat, although says she has had this for a long time. She is having a small mucosal ulcer on the lower lip. Vitals/I&O/Wt Last Vital Signs Temp 98.7 F 06/30/20 12:00 Pulse 64 06/30/20 12:00 Resp 17 06/30/20 12:00 BP 147/70 06/30/20 12:00 Pulse Ox 95 06/30/20 12:00 06/29/20 06/30/20 06/30/20 22:59 06:59 14:59 Intake Total 3077.5 / 3077.5 Output Total 300 / 300 800 / 800 Balance 2777.5 / 2777.5 -800 / -800 Weight last 48 hrs Weight 63.503 kg Physical Exam Narrative: EXAM NARRATIVE: Her son is with her at bedside. Const: COMMON NORMALS: no acute distress and patient oriented x3 HENMT: COMMON NORMALS: oropharynx normal (No mucosal petechia) OTHER: 2 mm shallow mucositis ulcer on lower lip without any surrounding erythema Neck/C-Spine: COMMON NORMALS: no JVD Chest: OTHER: Right chest tunneled catheter small mount of crusted old blood. Resp: COMMON NORMALS: normal respiratory effort and clear to auscultation bilaterally AUSCULTATION: clear to auscultation bilaterally Cardio: COMMON NORMALS: no JVD, regular rhythm, S1 normal heart sound present, S2 normal heart sound present and No murmurs present (Cardio) RHYTHM: regular rhythm HEART SOUNDS: S1 normal heart sound present and S2 normal heart sound present GI: COMMON NORMALS: Normal to inspection, nondistended, normoactive bowel sounds present, Soft to palpation and non-tender PALPATION: Yes Soft to palpation Extremity: COMMON NORMALS: no joint enlargement and no pedal edema Neuro: COMMON NORMALS: patient oriented x3 and moves all extremities Skin: OTHER: Occasional scattered lower extremity petechiae. Data : 06/29/20 23:48 06/29/20 23:48 Micro: Microbiology 06/30/20 00:32 Blood Culture - Preliminary Blood SPECIMEN COLLECTED 06/29/20 23:48 Blood Culture - Preliminary Blood SPECIMEN COLLECTED A&P Assessment and plan (1) Neutropenic fever: Unclear whether infection or reaction to platelet transfusion. Temperature high as 100.6 reported last night. Discussed with her and her hematology. At this time we do not have an obvious source of infection. Follow-up blood culture. Chest x-ray not suggestive of pneumonia. UA no strips of UTI. No vomiting or diarrhea. No neurologic or or interim injury signs of infection. Has chronic sore throat. Has a small mucositis ulcer on the lower lip. Rapid COVID-19 was obtained yesterday, was negative. As per discussion with her an/syq 13 nav/c2 operator, at this time continue aztreonam, vancomycin. Resume Diflucan, acyclovir. We are contacting [facility] given she is actively undergoing treatment there for AML, as well as due to lack of response to platelet transfusion last night, with possible transfer arranged there depending on recommendations. She is agreeable to proceed if possible. Status: Acute (2) CML (chronic myelocytic leukemia): Taking Venclexta. Status: Acute (3) Pancytopenia: Recheck platelet level. If platelets decreasing, will require additional platelet transfusion, leukoreduced irritated platelets with premedication with steroid, Benadryl, Tylenol. Status: Acute Additional A&P Information Double-lumen tunneled right IJ catheter: With recent blood wheezing, this appears to have so far improved. Today one of the lumens is not functioning. Heparin flush attempted. A nurse from hepatology clinic may come assess the catheter. Discussed possibility of TPA treatment, however, discussed with patient with current very low platelet level risk may be too high of bleeding. She is agreeable for now to avoid TPA, understands that catheter may become irreversibly occluded. Attestations Medical Necessity Statement*: Continue admission for assessment management of neutropenic fever, pancytopenia, with serous, cytopenia corresponds to the transfusion, AML, undergoing chemotherapy. Coding Level of Care Code Acute Shine Worker for [facility] Diagnoses Neutropenic fever D70.9; R50.81 CML (chronic myelocytic leukemia) C92.10 Pancytopenia D61.818
--- NOTE | 2020-06-30 16:04 | PM.TDS ---
Transfer Summary Providers Date of Admission: 06/30/20 00:50 Date of Discharge: 06/30/20 Attending Provider at Admission: Hill Lovell Attending Provider at Transfer: Bradley Bullard Primary Care Provider: Mercy Rosales MD Anticipated Date of Transfer: Anticipated date of transfer: 06/30/20 Receiving Facility & Provider: Receiving Provider: [] Receiving facility: [] Diagnoses at Discharge Discharge Diagnosis (1) Neutropenic fever: Status: Acute (2) CML (chronic myelocytic leukemia): Status: Acute (3) Pancytopenia: Status: Acute Reason for Visit Reason for Visit: running fever/cancer patient Hospital Course Hospital Course Pleasant 70-year-old lady with AML, undergoing treatment currently at [facility], completed first cycle of chemotherapy, at home continuing on venetoclax, was receiving platelet transfusion due to the severe thrombocytopenia, platelet noted at 16,000 in the morning on 06/29. She was premedicated before platelet transfusion, subsequently after the transfusion had an episode of fever. Was referred to the hospital for assessment management. Was started empirically on antibiotic coverage with aztreonam, vancomycin due to neutropenic fever. ANC noted as 0.02. Platelets after transfusion around midnight noted to be with poor response to transfusion at 13,000. She again spiked a fever 100.6 late last night. Work-up so far has not been suggestive of an infection focus. As per discussion with her and her dry transfer worker for now it is still difficult to tell whether this was reaction to the transfusion versus possible infection. She was assessed by rapid COVID-19 test which was negative. Chest x-ray was not suggestive of pneumonia. UA not suggestive of UTI. She has had recently no headache or other [employer] symptoms to suggest [employer] infection. She has had no nausea vomiting or diarrhea. She has mild sore throat which she says has been a longstanding problem. She has small mucositis ulcer on lower lip without any recent worsening. Blood cultures were collected. She is being restarted on Diflucan and acyclovir. Of note yesterday also was noted having some oozing around the tunneled catheter which appears to have so far resolved. No appearance of erythema or suggestion of infection around the catheter on examination. One of the lumens of the catheter was found occluded, without response to heparin flush. Due to severity of thrombocytopenia TPA soak to reopen the lumen was not attempted. Due to AML, neutropenic fever, severity of cytopenia with poor response to platelet transfusion, actively undergoing treatment but [facility], her dry transfer worker recommended inquiring about transfer there for additional assessment care. She was kindly accepted after discussion with BMT fellow Dr. Silva, and both patient and her family are wanting to move forward with transfer. Physical Exam Narrative: EXAM NARRATIVE: Her son is with her at bedside. Const: COMMON NORMALS: no acute distress and patient oriented x3 HENMT: COMMON NORMALS: oropharynx normal (No mucosal petechia) OTHER: 2 mm shallow mucositis ulcer on lower lip without any surrounding erythema Neck/C-Spine: COMMON NORMALS: no JVD Chest: OTHER: Right chest tunneled catheter small mount of crusted old blood. Resp: COMMON NORMALS: normal respiratory effort and clear to auscultation bilaterally AUSCULTATION: clear to auscultation bilaterally Cardio: COMMON NORMALS: no JVD, regular rhythm, S1 normal heart sound present, S2 normal heart sound present and No murmurs present (Cardio) RHYTHM: regular rhythm HEART SOUNDS: S1 normal heart sound present and S2 normal heart sound present GI: COMMON NORMALS: Normal to inspection, nondistended, normoactive bowel sounds present, Soft to palpation and non-tender PALPATION: Yes Soft to palpation Extremity: COMMON NORMALS: no joint enlargement and no pedal edema Neuro: COMMON NORMALS: patient oriented x3 and moves all extremities Skin: OTHER: Occasional scattered lower extremity petechiae. TS Data Data Completed and Pending: Completed Studies During Hospitalization Category Date Time Status XR chest 1V carli ble [id number] Urgent Exams 06/29/20 23:08 Completed Pending at discharge Category Date Time Status Basic Metabolic P ac AM LABS Lab 07/01/20 04:00 Ordered Basic Metabolic P ac AM LABS Lab 07/02/20 04:00 Ordered Basic Metabolic P ac AM LABS Lab 07/03/20 04:00 Ordered Blood Culture Sta t Lab 06/29/20 23:48 Results Complete Blood Co unt w/Auto AM LABS Lab 07/01/20 04:00 Ordered Complete Blood Co unt w/Auto AM LABS Lab 07/02/20 04:00 Ordered Complete Blood Co unt w/Auto AM LABS Lab 07/03/20 04:00 Ordered Partial Thrombopl astin Time AM LABS Lab 07/01/20 04:00 Ordered Platelet Count Ro utine Lab 06/30/20 16:00 Ordered Prothrombin Time INR AM LABS Lab 07/01/20 04:00 Ordered Vancomycin Trough Timed Lab 07/03/20 02:00 Ordered Labs from last 24 hours 06/30/20 06/29/20 06/29/20 01:04 23:48 23:48 WBC RBC Hgb Hct MCV MCH MCHC RDW Plt Count MPV Neut % (Auto) Lymph % (Auto) [place] % (Auto) Eos % (Auto) Baso % (Auto) Neut # (Auto) Lymph # (Auto) [place] # (Auto) Eos # (Auto) Baso # (Auto) Nucleated RBC % (a uto) Nucleated RBCs # PT INR Sodium 133 L Potassium 4.0 Chloride 100 Carbon Dioxide 26 Anion Gap 11.0 BUN 14 Creatinine 0.7 GFR Calculation 83.2 L Glucose 89 Calculated Osmolal ity 276 L Lactate 0.7 Calcium 8.5 Total Bilirubin 0.5 AST 16 ALT 11 Alkaline Phosphata se 71 Total Protein 6.8 Albumin 3.8 Globulin 3.0 Urine Color Urine Appearance Urine pH Ur Specific Gravit y Urine Protein Urine Glucose (UA) Urine Ketones Urine Blood Urine Nitrate Urine Bilirubin Urine Urobilinogen Ur Leukocyte [place] ase SARS-CoV-2 Ag (Rap id) Negative 06/29/20 06/29/20 06/29/20 23:48 23:48 23:45 WBC 1.0 L RBC 2.46 L Hgb 8.0 L Hct 24.9 L MCV 101.2 H MCH 32.5 MCHC 32.1 RDW 17.2 H Plt Count 13 L* MPV 11.3 H Neut % (Auto) 2.1 Lymph % (Auto) 96.9 [place] % (Auto) 1.0 Eos % (Auto) 0.0 Baso % (Auto) 0.0 Neut # (Auto) 0.02 L* Lymph # (Auto) 0.9 [place] # (Auto) 0.0 L Eos # (Auto) 0.0 Baso # (Auto) 0.0 Nucleated RBC % (a uto) 0 Nucleated RBCs # 0.0 PT 13.50 INR 1.00 Sodium Potassium Chloride Carbon Dioxide Anion Gap BUN Creatinine GFR Calculation Glucose Calculated Osmolal ity Lactate Calcium Total Bilirubin AST ALT Alkaline Phosphata se Total Protein Albumin Globulin Urine Color Yellow Urine Appearance Clear Urine pH 6.5 Ur Specific Gravit y 1.010 Urine Protein Neg Urine Glucose (UA) Norm Urine Ketones Negative Urine Blood Neg Urine Nitrate Negative Urine Bilirubin Neg Urine Urobilinogen Norm Ur Leukocyte [place] ase Negative SARS-CoV-2 Ag (Rap id) Vitals: Last Vital Signs Temp 98.7 F 06/30/20 12:00 Pulse 64 06/30/20 12:00 Resp 17 06/30/20 12:00 BP 147/70 06/30/20 12:00 Pulse Ox 95 06/30/20 12:00 TS Medications Medications Home Medications clobetasol 0.05 % topical cream 1 applic TOPICAL .twice weekly #60 gm 10/05/19 [Rx Confirmed 06/30/20] escitalopram oxalate 20 mg tablet 40 mg PO DAILY tab 05/16/20 [History Confirmed 06/30/20] acyclovir 400 mg PO TID 06/30/20 [History Confirmed 06/30/20] ciprofloxacin 500 mg PO BID 06/30/20 [History Confirmed 06/30/20] docusate sodium 06/30/20 [History] fluconazole 200 mg PO DAILY 06/30/20 [History Confirmed 06/30/20] melatonin 3 mg PO DAILY 06/30/20 [History Confirmed 06/30/20] melatonin mg 06/30/20 [History] ondansetron 8 mg PO Q12H 06/30/20 [History Confirmed 06/30/20] venetoclax 200 mg PO DAILY 06/30/20 [History Confirmed 06/30/20] Active Medications Acetaminophen (Acetaminophen 325 Mg Tablet) 650 mg PO Q6H PRN PRN Reason: Mild/Mod Pain Or Temp >/= 101 Last Admin: 06/30/20 05:46 Dose: 650 mg Documented by: Acyclovir (Acyclovir 400 Mg Tablet) 400 mg PO TID [facility] Escitalopram Oxalate (Escitalopram 10 Mg Tablet) 40 mg PO DAILY [facility] Last Admin: 06/30/20 10:07 Dose: 40 mg Documented by: Famotidine (Famotidine 20 Mg Tablet) 20 mg PO BID [facility] Last Admin: 06/30/20 10:07 Dose: 20 mg Documented by: Fluconazole (Fluconazole 100 Mg Tablet) 400 mg PO DAILY [facility] Aztreonam 1,000 mg/ Sodium (Chloride) 50 mls @ 100 mls/hr IV Q12H [facility]; Protocol Last Admin: 06/30/20 15:14 Dose: 100 mls/hr Documented by: Sodium Chloride (Sodium Chloride 0.9%) 1,000 mls @ 75 mls/hr IV .[id number] [facility] Last Infusion: 06/30/20 04:16 Dose: 75 mls/hr Documented by: Vancomycin/PEG/NADA/Lysine/Water (Vancocin) 1,500 mg in 300 mls @ 150 mls/hr IV Q24H [facility] Last Infusion: 06/30/20 05:41 Dose: Infused Documented by: Lidocaine HCl (Lidocaine 2% Viscous 15 Ml Udc) 15 ml MUCOUS MEM PRN PRN PRN Reason: MOUTH SORE PAIN Non-Formulary Medication (Clobetasol) 1 applic TOPICAL .twice weekly [place] Ondansetron HCl (Ondansetron 2 Mg/Ml Sdv 2 Ml) 4 mg IVP Q8H PRN PRN Reason: vomiting, or N/V if npo Saliva Substitute (Saliva Stimulant [place] 44 Ml Btl) 1 spray MUCOUS MEM PRN PRN PRN Reason: DRYNESS Discharge Plan Discharge Patient Disposition: Xfer Short-Term Hosp Condition: Stable Prescriptions: No Action clobetasol 0.05 % cream 1 applic TOPICAL .twice weekly Qty: 60 RF: 0 escitalopram oxalate [Lexapro] 20 mg tablet 40 mg PO DAILY RF: 0 ciprofloxacin 500 mg/5 mL Suspension,Microcapsule Recon 500 mg PO BID RF: 0 docusate sodium RF: 0 fluconazole 200 mg Tablet 200 mg PO DAILY RF: 0 ondansetron 8 mg Tablet,Disintegrating 8 mg PO Q12H RF: 0 venetoclax 100 mg Tablet 200 mg PO DAILY RF: 0 melatonin 5 mg Capsule RF: 0 melatonin 3 mg Tablet,Disintegrating 3 mg PO DAILY RF: 0 acyclovir 400 mg Tablet 400 mg PO TID RF: 0 Referrals: Mercy Rosales MD [Primary Care Provider] - Transfer Attestations Time Spent in Transfer Care*: greater than 30 min Quality Metrics Clinical Quality Measures: During this hospital stay, did patient experience: None Coding Level of Care Code Acute Charge Lpn for Chg Fwd Diagnoses Neutropenic fever D70.9; R50.81 CML (chronic myelocytic leukemia) C92.10 Pancytopenia D61.818
[2020-06-30 17:21] LABS: Platelet Count 7 10^3/cmm (130-400)
== END 2020-06-30 19:00 | disposition short-term general hospital (02) | DRG 809 ==
LOC: ER 23:08 → MEDSURG 06-30 01:02
PROVIDERS: Admitting Provider Internal Medicine; Emergency Provider Emergency Medicine; PCP Internal Medicine; Visit Provider Internal Medicine
DX: D70.9 Neutropenia, unspecified (principal); C92.00 Acute myeloblastic leukemia, not having achieved remission; K12.30 Oral mucositis (ulcerative), unspecified; R50.81 Fever presenting with conditions classified elsewhere; Z79.899 Other long term (current) drug therapy; Z95.828 Presence of other vascular implants and grafts; F32.9 Major depressive disorder, single episode, unspecified; L90.0 Lichen sclerosus et atrophicus; N90.4 Leukoplakia of vulva; D69.6 Thrombocytopenia, unspecified
CPT/HCPCS: 36430; 36592; 71045; 80053; 81003; 83605; 83615; 85007; 85025; 85027; 85049; 85610; 86850; 86900; 86920; 87040; 87426; 96374; 96375; 99285; J1642; J3370; J3490; J7030; J7050; J8499; P9040

== ENCOUNTER 2020-07-14 05:25 | Outpatient (RCR) | payer MEDICARE, SELFPAY ==
[2020-07-11 13:45] LABS: Hematocrit 29.5 % (37.0-47.0); Hemoglobin 9.6 g/dL (11.5-15.3); Lymphocytes # 0.6 10^3/uL (0.8-4.8); Lymphocytes % 91.7 %; Mean Corpuscular HGB Conc 32.5 g/dL (30.0-36.0); Mean Corpuscular Hemoglobin 31.6 pg (28.0-34.0); Mean Platelet Volume 10.4 fL (7.4-10.4); Monocytes % 3.3 %; Nucleated Red Blood Cells % 0 %; Platelet Count 46 10^3/cmm (130-400); Red Blood Count 3.04 10^6/uL (4.1-5.3); Red Cell Distribution Width 16.5 % (12.1-15.1)
[2020-07-11 14:08] LABS: Alanine Aminotransferase 54 U/L (0-33); Albumin Level 3.7 g/dL (3.5-5.2); Alkaline Phosphatase 67 IU/L (35-105); Anion Gap 11.6 (5-19); Aspartate Amino Transferase 34 U/L (0-32); Blood Urea Nitrogen 11 mg/dL (8-23); Calcium 8.7 mg/dL (8.5-10.5); Carbon Dioxide 25 mmol/L (22-29); Chloride 105 mmol/L (98-107); Glomerular Filtration Rate 99.4 mL/min (90-130); Glucose 107 mg/dL (65-115); Lactate Dehydrogenase 234 U/L (135-214); Osmolality Calculated 286 mOsm/kg (285-295); Potassium 3.6 mmol/L (3.5-5.1); Sodium 138 mmol/L (136-145); Total Bilirubin 0.8 mg/dL (0.15-1.2); Total Protein 6.7 g/dL (6.6-8.7)
[2020-07-11 14:22] LABS: Slide Review Slide Review Perform
[2020-07-11 14:23] LABS: Neutrophils # 0.03 10^3/uL (1.8-7.7); White Blood Count 0.6 10^3/uL (4.0-10.0)
[2020-07-14 09:45] LABS: Lymphocytes # 0.5 10^3/uL (0.8-4.8); Lymphocytes % 81.4 %; Mean Corpuscular HGB Conc 33.3 g/dL (30.0-36.0); Mean Corpuscular Hemoglobin 32.5 pg (28.0-34.0); Mean Corpuscular Volume 97.5 fL (81-99); Mean Platelet Volume 10.9 fL (7.4-10.4); Monocytes % 1.7 %; Neutrophils % 16.9 %; Nucleated Red Blood Cells % 0 %; Platelet Count 90 10^3/cmm (130-400); Red Blood Count 2.77 10^6/uL (4.1-5.3); Red Cell Distribution Width 16.6 % (12.1-15.1)
[2020-07-14 09:56] LABS: Alanine Aminotransferase 37 U/L (0-33); Albumin Level 3.6 g/dL (3.5-5.2); Alkaline Phosphatase 63 IU/L (35-105); Anion Gap 12.3 (5-19); Aspartate Amino Transferase 21 U/L (0-32); Blood Urea Nitrogen 8 mg/dL (8-23); Calcium 8.8 mg/dL (8.5-10.5); Carbon Dioxide 24 mmol/L (22-29); Chloride 105 mmol/L (98-107); Glomerular Filtration Rate 99.4 mL/min (90-130); Glucose 145 mg/dL (65-115); Lactate Dehydrogenase 261 U/L (135-214); Osmolality Calculated 287 mOsm/kg (285-295); Potassium 3.3 mmol/L (3.5-5.1); Sodium 138 mmol/L (136-145); Total Bilirubin 0.8 mg/dL (0.15-1.2); Total Protein 6.6 g/dL (6.6-8.7)
[2020-07-14 10:29] LABS: White Blood Count 0.6 10^3/uL (4.0-10.0)
== END 2020-07-16 | disposition home or self-care (01) ==
LOC: ONCMED 05:25
PROVIDERS: PCP Internal Medicine; Visit Provider Internal Medicine Medical Oncology
DX: C92.00 Acute myeloblastic leukemia, not having achieved remission (principal); D61.818 Other pancytopenia
CPT/HCPCS: 36592; 80053; 83615; 85025; 86850; 86900

== ENCOUNTER 2020-07-16 00:20 | Emergency (ER) | payer MEDICARE, SELFPAY ==
[2020-07-16] VITALS (8 sets, daily range): BP systolic 148–180; BP diastolic 57–93; PULSE 57–69; RESP 16–18; TEMP 36.8; O2SAT 91–98; BMI 27.1
--- NOTE | 2020-07-16 00:46 | W.ED.FEMALGU ---
HPI - Female Genitourinary General: Chief complaint: Urogenital-Female Stated complaint: infection Time Seen by Provider: 07/16/20 00:37 [facility] ED PFSH: Medical History (Updated 07/01/20 @ 11:19 by Bradley Bullard MD) AML (acute myeloblastic leukemia) Depression Symptoms controlled on Lexapro managed by her primary care provider Lichen sclerosus Diagnosed in January 2019 with a vulvar biopsy-patient has not been compliant with using the clobetasol. No pertinent past medical history Patient denies history of PE/DVT/clotting disorders, asthma, lung, liver heart, thyroid, kidney disease, hypertension or diabetes. PCP: TONEY Spring Ulcerative colitis States that she has had ulcerative colitis since about the age of 32. She states she last had a colonoscopy in [place] in 2018 that was within normal limits. She is not currently on any medication for this Surgical History S/P section Performed in the via vertical midline infraumbilical incision Family History Sister Hyperlipidemia Hypertension Vulvar cancer Brother Hyperlipidemia Hypertension Diabetes Father Stroke Denies family history of Cervical cancer Colon cancer Ovarian cancer DVT (deep venous thrombosis) Breast cancer Pulmonary embolism Uterine cancer Social History Smoking and tobacco status: never smoked Alcohol intake: unknown Course Vital Signs: Vital signs: Vital Signs Temperature 98.2 F 07/16/20 00:34 Pulse Rate 69 07/16/20 00:34 Respiratory Rate 18 07/16/20 00:34 Blood Pressure 180/69 07/16/20 00:34 Pulse Oximetry 92 07/16/20 00:34 Discharge Plan Discharge Prescriptions: No Action clobetasol 0.05 % cream 1 applic TOPICAL .twice weekly Qty: 60 RF: 0 escitalopram oxalate [Lexapro] 20 mg tablet 40 mg PO DAILY RF: 0 ciprofloxacin 500 mg/5 mL Suspension,Microcapsule Recon 500 mg PO BID RF: 0 docusate sodium RF: 0 fluconazole 200 mg Tablet 200 mg PO DAILY RF: 0 ondansetron 8 mg Tablet,Disintegrating 8 mg PO Q12H RF: 0 venetoclax 100 mg Tablet 200 mg PO DAILY RF: 0 melatonin 5 mg Capsule RF: 0 melatonin 3 mg Tablet,Disintegrating 3 mg PO DAILY RF: 0 acyclovir 400 mg Tablet 400 mg PO TID RF: 0 Coding Level of Care Code ED Feather Separator for Cb Mccall
--- NOTE | 2020-07-16 01:04 | W.ED.SKABFB ---
HPI - Skin/Abscess/Foreign Bdy General: Chief complaint: Urogenital-Female Stated complaint: infection Time Seen by Provider: 07/16/20 00:37 Source: patient Mode of arrival: ambulatory Limitations: no limitations History of Present Illness: HPI narrative: Patient is a very pleasant 70-year-old female who is currently undergoing chemotherapy treatment for AML at [facility] presents to ED today with a complaint of an abscess to her perineal region. Patient states she began noticing some discomfort a few days ago but states since that time pain has continued to progress to the point where she is having much discomfort with sitting and walking. Patient tells me she was seen by a nurse practitioner at Dr. Rosales's office as well as a nurse practitioner at Dr. Frazier's office (there are no notes regarding this visit) and states she was told to come to the ED. She contacted the patient line at [facility] and they too instructed her to come to the ED for IV antibiotics and transfer to their facility. Patient has not been running fevers. She has a known diagnosis of lichen sclerosus in which she is seeing Dr. Frazier for. complaint: abscess/boil Onset (ago): day(s) Tetanus up to date: yes Location: buttocks and genitals Severity: moderate Pain Consistency: constant Context: other (undergoing chemotherapy) Associated symptoms: Deny chills, fever(s), nausea or vomiting Treatments prior to arrival: other (sitz baths) Review of Systems Const: Reports: fatigue; Denies: fever(s), chills or body aches Eyes: Denies: change in vision or blurry vision Card: Denies: chest pain, palpitations, irregular heart rhythm, lightheadedness, syncope or dyspnea on exertion Resp: Denies: dyspnea, productive cough or pain on inspiration GI: Denies: abdominal pain, nausea, vomiting, heartburn or diarrhea : Denies: flank pain, dysuria, vaginal odor, vaginal bleeding, vaginal discharge or pelvic pain Musc: Denies: neck pain, back pain or joint pain Skin/Breast: Reports: other (reports perineal abscess ) Neuro: Denies: headache(s), dizziness or confusion PFS ED PFSH: Medical History (Updated 07/16/20 @ 02:59 by ELIDA Busby) AML (acute myeloblastic leukemia) Depression Symptoms controlled on Lexapro managed by her primary care provider Lichen sclerosus Diagnosed in January 2019 with a vulvar biopsy-patient has not been compliant with using the clobetasol. No pertinent past medical history Patient denies history of PE/DVT/clotting disorders, asthma, lung, liver heart, thyroid, kidney disease, hypertension or diabetes. PCP: TONEY Spring Ulcerative colitis States that she has had ulcerative colitis since about the age of 32. She states she last had a colonoscopy in [place] in 2018 that was within normal limits. She is not currently on any medication for this Surgical History S/P section Performed in the via vertical midline infraumbilical incision Family History Sister Hyperlipidemia Hypertension Vulvar cancer Brother Hyperlipidemia Hypertension Diabetes Father Stroke Denies family history of Cervical cancer Colon cancer Ovarian cancer DVT (deep venous thrombosis) Breast cancer Pulmonary embolism Uterine cancer Social History Smoking and tobacco status: never smoked Alcohol intake: unknown Physical Exam Const: COMMON NORMALS: no acute distress, average body habitus, patient oriented x3, no limitations, healthy appearing, alert and well nourished GENERAL APPEARANCE: cooperative and other (appears weak) ORIENTATION/CONSCIOUSNESS: Yes awake, Yes oriented to person, Yes oriented to place and Yes oriented to time HENMT: COMMON NORMALS: normocephalic and atraumatic HEAD & SCALP: normocephalic and atraumatic Resp: COMMON NORMALS: normal respiratory effort and clear to auscultation bilaterally AUSCULTATION: clear to auscultation bilaterally Cardio: COMMON NORMALS: regular rate and regular rhythm RATE: regular rate RHYTHM: regular rhythm GI: COMMON NORMALS: Normal to inspection, nondistended, normoactive bowel sounds present, Soft to palpation, non-tender, No hepatosplenomegaly present and no masses INSPECTION: Yes normal to inspection PALPATION: Yes Soft to palpation and Yes No hepatosplenomegaly present RECTAL EXAM: External hemorrhoid(s) present and hemorrhoids External hemorrhoid(s): Yes OTHER: pt has an area of induration and erythema measuring approximately 3 inches to her R perirectal region; she is very tender to palpation here; induration spreads and affects inferior portion of R labia majora; there is no labial/bartholin's abscess present; she has one non-thrombosed external hemorrhoid present; known rectocele present : COMMON NORMALS: Yes no CVA tenderness BLADDER/KIDNEY EXAM: Yes no CVA tenderness Back/Pelvis: COMMON NORMALS: no CVA tenderness Extremity: GENERAL: Yes normal exam except as noted Neuro: COMMON NORMALS: patient oriented x3 SENSORIUM/ORIENTATION: Yes alert, Yes oriented to person, Yes oriented to place and Yes oriented to time Course Consultations: Consultation #1: Dr. Garcia-oncology [facility]-accepts patient; he was okay with the IV flagyl and cefuroxime started here; will need rapid COVID prior to transfer Time: 02:40 Vital Signs: Vital signs: Vital Signs Temperature 98.2 F 07/16/20 00:34 Pulse Rate 59 L 07/16/20 02:00 Respiratory Rate 16 07/16/20 02:00 Blood Pressure 159/72 07/16/20 02:00 Pulse Oximetry 98 07/16/20 02:00 MDM - Skin/Abscess/Foreign Bdy MDM Narrative: Medical decision making narrative: Patient refuses CT imaging here stating she would like any imaging that needs to be performed be done so at [facility]. I have spoken to Dr. Garcia at [facility] who accepts patient. She will be admitted to her oncologist Dr. Tipton. Lab Data: Labs: Lab Results 07/16/20 07/16/20 07/16/20 Range/Units 01:23 01:23 01:23 WBC 0.8 L* (4.0-10.0) 10^3/ uL RBC 2.47 L (4.1-5.3) 10^6/u L Hgb 8.0 L (11.5-15.3) g/dL Hct 24.1 L (37.0-47.0) % MCV 97.6 (81-99) fL MCH 32.4 (28.0-34.0) pg MCHC 33.2 (30.0-36.0) g/dL RDW 16.6 H (12.1-15.1) % Plt Count 99 L (130-400) 10^3/c mm MPV 9.7 (7.4-10.4) fL Neut % (Auto) 17.1 % Lymph % (Auto) 75.6 % [place] % (Auto) 7.3 % Eos % (Auto) 0.0 % Baso % (Auto) 0.0 % Neut # (Auto) 0.14 L* (1.8-7.7) 10^3/u L Lymph # (Auto) 0.6 L (0.8-4.8) 10^3/u L [place] # (Auto) 0.1 L (0.2-0.9) 10^3/u L Eos # (Auto) 0.0 (0.0-0.8) 10^3/u L Baso # (Auto) 0.0 (0.0-0.1) 10^3/u L Nucleated RBC % (a uto) 0 % Nucleated RBCs # 0.0 /100WBC Polychromasia 1+ H Basophilic Stippli ng 1+ H Anisocytosis 2+ H Sodium 134 L (136-145) mmol/L Potassium 3.3 L (3.5-5.1) mmol/L Chloride 100 (98-107) mmol/L Carbon Dioxide 25 (22-29) mmol/L Anion Gap 12.3 (5-19) BUN 9 (8-23) mg/dL Creatinine 0.5 (0.5-0.9) mg/dL GFR Calculation 122.7 (90-130) mL/min Glucose 108 (65-115) mg/dL Calculated Osmolal ity 277 L (285-295) mOsm/k g Lactic Acid 0.8 (0.5-2.2) mmol/L Calcium 8.4 L (8.5-10.5) mg/dL Total Bilirubin 0.6 (0.15-1.2) mg/dL AST 22 (0-32) U/L ALT 32 (0-33) U/L Alkaline Phosphata se 57 (35-105) IU/L Total Protein 6.0 L (6.6-8.7) g/dL Albumin 3.3 L (3.5-5.2) g/dL Globulin 2.7 (1.3-4.6) g/dL Discharge Plan Discharge Patient Disposition: Xfer to Cancer Center or [facility] Clinical Impression: Perirectal abscess, Immunocompromised AML (acute myeloblastic leukemia) Qualifiers: Leukemia Active/Remission status: without remission Qualified Code(s): C92.00 - Acute myeloblastic leukemia, not having achieved remission Condition: Stable Referrals: Mercy Rosales MD [Primary Care Provider] - Coding Level of Care Code ED Parole Director for Chg Fwd Exam Detailed
[2020-07-16 01:39] LABS: Hematocrit 24.1 % (37.0-47.0); Lymphocytes # 0.6 10^3/uL (0.8-4.8); Lymphocytes % 75.6 %; Mean Corpuscular HGB Conc 33.2 g/dL (30.0-36.0); Mean Corpuscular Hemoglobin 32.4 pg (28.0-34.0); Mean Corpuscular Volume 97.6 fL (81-99); Mean Platelet Volume 9.7 fL (7.4-10.4); Monocytes # 0.1 10^3/uL (0.2-0.9); Monocytes % 7.3 %; Neutrophils % 17.1 %; Nucleated Red Blood Cells % 0 %; Platelet Count 99 10^3/cmm (130-400); Red Blood Count 2.47 10^6/uL (4.1-5.3); Red Cell Distribution Width 16.6 % (12.1-15.1)
[2020-07-16 01:59] LABS: Alanine Aminotransferase 32 U/L (0-33); Albumin Level 3.3 g/dL (3.5-5.2); Alkaline Phosphatase 57 IU/L (35-105); Anion Gap 12.3 (5-19); Aspartate Amino Transferase 22 U/L (0-32); Blood Urea Nitrogen 9 mg/dL (8-23); Calcium 8.4 mg/dL (8.5-10.5); Carbon Dioxide 25 mmol/L (22-29); Chloride 100 mmol/L (98-107); Globulin 2.7 g/dL (1.3-4.6); Glomerular Filtration Rate 122.7 mL/min (90-130); Glucose 108 mg/dL (65-115); Osmolality Calculated 277 mOsm/kg (285-295); Potassium 3.3 mmol/L (3.5-5.1); Sodium 134 mmol/L (136-145); Total Bilirubin 0.6 mg/dL (0.15-1.2)
[2020-07-16 02:00] LABS: Lactic Sepsis W/Reflex 0.8 mmol/L (0.5-2.2)
[2020-07-16 02:05] LABS: Add RBC Morph Yes
[2020-07-16 02:06] LABS: Neutrophils # 0.14 10^3/uL (1.8-7.7); White Blood Count 0.8 10^3/uL (4.0-10.0)
[2020-07-16 02:07] LABS: Anisocytosis 2+; Basophilic Stippling 1+; Polychromasia 1+; RBC Morph Comp No
[2020-07-16] MEDS: cefUROXime 1,500 MG in sodium chloride 0.9% (plus) 50 ML 100 MG IV (02:11)
[2020-07-16] MEDS: metroNIDAZOLE IV 500 MG/100 ML PREMIX 100 MG IV (02:11)
[2020-07-16 03:13] LABS: SARS Covid-2 Antigen Negative (Negative)
[2020-07-16] MEDS: diphenhydrAMINE 50 mg/mL SDV 1mL 25 MG IVP (07:15)
== END 2020-07-16 07:24 | disposition designated cancer center or children's hospital (05) ==
PROVIDERS: Emergency Provider Physician Assistant; PCP Internal Medicine
DX: K61.1 Rectal abscess (principal); C92.00 Acute myeloblastic leukemia, not having achieved remission; Z79.899 Other long term (current) drug therapy
CPT/HCPCS: 80053; 83605; 85025; 87040; 87426; 96374; 99285; J0697; J1200; S0030

== ENCOUNTER 2020-07-25 06:12 | Outpatient (RCR) | payer MEDICARE, SELFPAY ==
[2020-07-25 10:01] LABS: Basophils % 0.3 %; Hemoglobin 10.3 g/dL (11.5-15.3); Lymphocytes # 1.2 10^3/uL (0.8-4.8); Lymphocytes % 37.7 %; Mean Corpuscular HGB Conc 32.2 g/dL (30.0-36.0); Mean Corpuscular Hemoglobin 30.9 pg (28.0-34.0); Mean Corpuscular Volume 96.1 fL (81-99); Mean Platelet Volume 9.6 fL (7.4-10.4); Monocytes # 0.9 10^3/uL (0.2-0.9); Monocytes % 28.3 %; Neutrophils # 1.05 10^3/uL (1.8-7.7); Neutrophils % 32.8 %; Nucleated Red Blood Cells % 0 %; Platelet Count 144 10^3/cmm (130-400); Red Blood Count 3.33 10^6/uL (4.1-5.3); Red Cell Distribution Width 18.9 % (12.1-15.1); White Blood Count 3.2 10^3/uL (4.0-10.0)
[2020-07-25 10:22] LABS: Alanine Aminotransferase 40 U/L (0-33); Albumin Level 4.1 g/dL (3.5-5.2); Alkaline Phosphatase 77 IU/L (35-105); Anion Gap 12.4 (5-19); Aspartate Amino Transferase 28 U/L (0-32); Blood Urea Nitrogen 14 mg/dL (8-23); Calcium 9.1 mg/dL (8.5-10.5); Carbon Dioxide 27 mmol/L (22-29); Chloride 100 mmol/L (98-107); Globulin 3.2 g/dL (1.3-4.6); Glomerular Filtration Rate 122.7 mL/min (90-130); Glucose 88 mg/dL (65-115); Lactate Dehydrogenase 314 U/L (135-214); Osmolality Calculated 282 mOsm/kg (285-295); Potassium 3.4 mmol/L (3.5-5.1); Sodium 136 mmol/L (136-145); Total Bilirubin 0.5 mg/dL (0.15-1.2); Total Protein 7.3 g/dL (6.6-8.7)
== END 2020-07-27 23:59 | disposition home or self-care (01) ==
LOC: ONCMED 06:12
PROVIDERS: PCP Internal Medicine; Visit Provider Internal Medicine Medical Oncology
DX: C92.00 Acute myeloblastic leukemia, not having achieved remission (principal)
CPT/HCPCS: 36591; 80053; 83615; 85025; J1642

== ENCOUNTER 2020-08-25 12:14 | Outpatient (RCR) | payer MEDICARE, SELFPAY ==
[2020-07-28 09:50] LABS: Basophils % 0.7 %; Hematocrit 33.2 % (37.0-47.0); Hemoglobin 10.6 g/dL (11.5-15.3); Lymphocytes # 1.2 10^3/uL (0.8-4.8); Lymphocytes % 28.9 %; Mean Corpuscular HGB Conc 31.9 g/dL (30.0-36.0); Mean Corpuscular Hemoglobin 31.5 pg (28.0-34.0); Mean Corpuscular Volume 98.8 fL (81-99); Mean Platelet Volume 10.6 fL (7.4-10.4); Monocytes # 1.2 10^3/uL (0.2-0.9); Monocytes % 28.9 %; Neutrophils % 40.5 %; Nucleated Red Blood Cells % 0 %; Platelet Count 194 10^3/cmm (130-400); Red Blood Count 3.36 10^6/uL (4.1-5.3); Red Cell Distribution Width 20.2 % (12.1-15.1); White Blood Count 4.2 10^3/uL (4.0-10.0)
[2020-07-28 10:07] LABS: Alanine Aminotransferase 41 U/L (0-33); Albumin Level 4.1 g/dL (3.5-5.2); Alkaline Phosphatase 80 IU/L (35-105); Anion Gap 12.4 (5-19); Aspartate Amino Transferase 33 U/L (0-32); Blood Urea Nitrogen 13 mg/dL (8-23); Calcium 9.3 mg/dL (8.5-10.5); Carbon Dioxide 28 mmol/L (22-29); Chloride 102 mmol/L (98-107); Globulin 3.4 g/dL (1.3-4.6); Glomerular Filtration Rate 99.4 mL/min (90-130); Glucose 110 mg/dL (65-115); Lactate Dehydrogenase 306 U/L (135-214); Osmolality Calculated 289 mOsm/kg (285-295); Potassium 3.4 mmol/L (3.5-5.1); Sodium 139 mmol/L (136-145); Total Bilirubin 0.4 mg/dL (0.15-1.2); Total Protein 7.5 g/dL (6.6-8.7)
[2020-08-04 10:27] LABS: Basophils % 0.6 %; Hematocrit 33.9 % (37.0-47.0); Hemoglobin 10.9 g/dL (11.5-15.3); Lymphocytes # 1.4 10^3/uL (0.8-4.8); Lymphocytes % 19.2 %; Mean Corpuscular HGB Conc 32.2 g/dL (30.0-36.0); Mean Corpuscular Hemoglobin 32.2 pg (28.0-34.0); Mean Corpuscular Volume 100.3 fL (81-99); Monocytes # 1.2 10^3/uL (0.2-0.9); Monocytes % 17.1 %; Neutrophils # 4.51 10^3/uL (1.8-7.7); Neutrophils % 62.1 %; Nucleated Red Blood Cells % 0 %; Platelet Count 218 10^3/cmm (130-400); Red Blood Count 3.38 10^6/uL (4.1-5.3); Red Cell Distribution Width 21.1 % (12.1-15.1); White Blood Count 7.3 10^3/uL (4.0-10.0)
[2020-08-04 10:48] LABS: Alanine Aminotransferase 44 U/L (0-33); Albumin Level 4.2 g/dL (3.5-5.2); Alkaline Phosphatase 80 IU/L (35-105); Anion Gap 12.7 (5-19); Aspartate Amino Transferase 41 U/L (0-32); Blood Urea Nitrogen 12 mg/dL (8-23); Calcium 9.2 mg/dL (8.5-10.5); Carbon Dioxide 27 mmol/L (22-29); Chloride 100 mmol/L (98-107); Globulin 2.6 g/dL (1.3-4.6); Glomerular Filtration Rate 122.7 mL/min (90-130); Glucose 91 mg/dL (65-115); Osmolality Calculated 281 mOsm/kg (285-295); Potassium 3.7 mmol/L (3.5-5.1); Sodium 136 mmol/L (136-145); Total Bilirubin 0.4 mg/dL (0.15-1.2); Total Protein 6.8 g/dL (6.6-8.7)
[2020-08-08 09:55] LABS: Basophils # 0.1 10^3/uL (0.0-0.1); Basophils % 0.6 %; Eosinophils % 0.1 %; Hematocrit 34.6 % (37.0-47.0); Hemoglobin 11.2 g/dL (11.5-15.3); Lymphocytes # 1.3 10^3/uL (0.8-4.8); Lymphocytes % 17.1 %; Mean Corpuscular HGB Conc 32.4 g/dL (30.0-36.0); Mean Corpuscular Hemoglobin 32.4 pg (28.0-34.0); Mean Platelet Volume 10.6 fL (7.4-10.4); Monocytes # 1.2 10^3/uL (0.2-0.9); Neutrophils # 5.13 10^3/uL (1.8-7.7); Neutrophils % 66.4 %; Nucleated Red Blood Cells % 0 %; Platelet Count 176 10^3/cmm (130-400); Red Blood Count 3.46 10^6/uL (4.1-5.3); Red Cell Distribution Width 21.5 % (12.1-15.1); White Blood Count 7.7 10^3/uL (4.0-10.0)
[2020-08-08 10:16] LABS: Alanine Aminotransferase 48 U/L (0-33); Albumin Level 4.2 g/dL (3.5-5.2); Alkaline Phosphatase 83 IU/L (35-105); Anion Gap 13.7 (5-19); Aspartate Amino Transferase 40 U/L (0-32); Blood Urea Nitrogen 14 mg/dL (8-23); Calcium 9.1 mg/dL (8.5-10.5); Carbon Dioxide 27 mmol/L (22-29); Chloride 101 mmol/L (98-107); Glomerular Filtration Rate 122.7 mL/min (90-130); Glucose 103 mg/dL (65-115); Lactate Dehydrogenase 272 U/L (135-214); Osmolality Calculated 287 mOsm/kg (285-295); Potassium 3.7 mmol/L (3.5-5.1); Sodium 138 mmol/L (136-145); Total Bilirubin 0.4 mg/dL (0.15-1.2); Total Protein 7.2 g/dL (6.6-8.7)
[2020-08-08] MEDS: ondansetron 2 mg/ML SDV 2 mL 8 MG IVP (11:28)
[2020-08-08] MEDS: sodium chloride 0.9% 250 ML 999 ML IV (11:28)
[2020-08-09] MEDS: ondansetron 2 mg/ML SDV 2 mL 8 MG IVP (13:40)
[2020-08-09] MEDS: sodium chloride 0.9% 250 ML 999 ML IV (13:40)
[2020-08-10] MEDS: sodium chloride 0.9% 250 ML 999 ML IV (13:25)
[2020-08-10] MEDS: ondansetron 2 mg/ML SDV 2 mL 8 MG IVP (13:27)
[2020-08-11] MEDS: ondansetron 2 mg/ML SDV 2 mL 8 MG IVP (09:30)
[2020-08-11] MEDS: sodium chloride 0.9% 250 ML 999 ML IV (09:30)
[2020-08-12] MEDS: sodium chloride 0.9% 250 ML 999 ML IV (09:38)
[2020-08-12] MEDS: palonosetron 0.25 mg/5 mL SDV IVP (09:38)
[2020-08-18 10:05] LABS: Basophils % 0.4 %; Hematocrit 30.9 % (37.0-47.0); Hemoglobin 9.7 g/dL (11.5-15.3); Lymphocytes # 0.7 10^3/uL (0.8-4.8); Lymphocytes % 29.1 %; Mean Corpuscular HGB Conc 31.4 g/dL (30.0-36.0); Mean Corpuscular Hemoglobin 32.2 pg (28.0-34.0); Mean Corpuscular Volume 102.7 fL (81-99); Mean Platelet Volume 9.6 fL (7.4-10.4); Monocytes # 0.3 10^3/uL (0.2-0.9); Monocytes % 12.4 %; Neutrophils # 1.35 10^3/uL (1.8-7.7); Neutrophils % 57.7 %; Nucleated Red Blood Cells % 0 %; Platelet Count 111 10^3/cmm (130-400); Red Blood Count 3.01 10^6/uL (4.1-5.3); Red Cell Distribution Width 21.4 % (12.1-15.1); White Blood Count 2.3 10^3/uL (4.0-10.0)
[2020-08-18 10:33] LABS: Alanine Aminotransferase 50 U/L (0-33); Albumin Level 4.1 g/dL (3.5-5.2); Alkaline Phosphatase 72 IU/L (35-105); Aspartate Amino Transferase 47 U/L (0-32); Blood Urea Nitrogen 13 mg/dL (8-23); Carbon Dioxide 27 mmol/L (22-29); Chloride 103 mmol/L (98-107); Globulin 2.5 g/dL (1.3-4.6); Glomerular Filtration Rate 122.7 mL/min (90-130); Glucose 93 mg/dL (65-115); Osmolality Calculated 288 mOsm/kg (285-295); Sodium 139 mmol/L (136-145); Total Bilirubin 0.6 mg/dL (0.15-1.2); Total Protein 6.6 g/dL (6.6-8.7)
[2020-08-18 10:37] LABS: Anion Gap 12.7 (5-19); Lactate Dehydrogenase 309 U/L (135-214); Potassium 3.7 mmol/L (3.5-5.1)
--- NOTE | 2020-08-22 23:05 | ONC FU_ITS ---
[facility] Patient Note Patient: Eulalia Kaplan Unit #: [id number]: 1950 Dictated By: Mick VasquesDate of Visit: Aug 08, 2020 Onc MED Follow-Up/Prog Note Chief Complaint: Pancytopenia. History of Present Illness: Ms Kaplan is a 70-year-old woman with pancytopenia and predominant neutropenia. This patient has generally been very healthy. She has been followed by Dr. Frazier in for lichen sclerosis et atrophicus. This was confirmed by biopsy of the vulva and perineum in January 2019 with pathology showing benign lichenoid dermatitis. She also has been getting topical steroid therapy for skin eruption on her legs. She is on medication for anxiety/depression. She has no other ongoing medical illnesses, though she does have a past history of ulcerative colitis, for which she had been on treatment between 1981 in 1995. She also has a history of hyperlipidemia, but she has not required treatment for it. She had recently been seen by Dr. Rosales with extreme fatigue. Her laboratory studies from 05/17/2020 included a CBC which showed hemoglobin low at 10.3 g with hematocrit 30.4%. The red cell indices were macrocytic with MCV 105 and MCH 35.6. The white blood cell count was low at 2100 with a differential showing 20% neutrophils, 74% lymphocytes, 3% monocytes, 1% eosinophils, and 1% basophils. The platelet count was low at 105,000. Comprehensive metabolic profile showed normal renal function with BUN 16 and creatinine 0.64 mg/dL. The bilirubin and liver enzymes were normal. TSH was normal at 1.490 ???IU/mL. Her sed rate was normal at 5 mm/h, and her CRP was normal at 4 mg/L. Her PHILLIP screen was negative. B12 level was normal at 711 pg/mL. Dr Bradshaw had seen her initially on 05/25/2020. By that time her hemoglobin had decreased to 8.3 g with hematocrit 25.2%. The red cell indices were mildly macrocytic. The white blood cell count was low at 1600 with the differential showing 21% neutrophils, 71% lymphocytes, 5% monocytes, and 1% eosinophils. Platelet count was moderately decreased at 78,000. With those findings she underwent bone marrow aspiration/biopsy on 06/02/2020. The marrow was mildly hypercellular, estimated at 30 to 50%. There were subtle dyspoietic features noted. Blast enumeration on the aspirate was noted to be challenging due to a paucity of spicules in the sample. Immunohistochemical stains on the biopsy showed strikingly increased CD34 positive blasts estimated at greater than 40 to 50% of the total cells. 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 Results from the MDS FISH panel were still pending. She was referred to [facility] and seen there by Dr. Silva and Saeed on June 14 2020. It was recommended that she start treatment urgently with decitabine and venetoclax. An allogeneic transplant was also discussed but results of genetic testing were pending prior to making a recommendation. She began her first cycle of decitabine 20 mg per metered squared day 1 through 5 venetoclax 200 mg day 1 through 28 on June 20, 2020 as an inpatient due to the concerns of tumor lysis syndrome. She was admitted to the hospital between July 16 and July 22, 2020 initially presenting with perirectal pain and subsequently developing febrile neutropenia. She was diagnosed with cellulitis and found to have multiple groundglass nodules in her lungs with bilateral pleural effusions. This was felt to be most consistent with a fungal infection and she underwent bronchoscopy which did not really feel any source of infection. She was treated with a combination of vancomycin, cefepime, posaconazole and has recovered well. Mrs Kaplan is here today for followup. She is due for her Second cycle of chemotherapy including decitabine days 1 through 5 and venetoclax 10 mg days 1 through 28. She states overall she is doing well. She is accompanied by her son today who states she is doing well. She is eating good. Energy is fair. She still weak in general but seems to recovering well. She becomes more active every day. She denies any new concerns. She denies any shortness of breath orthopnea. She is had no chest pain or palpitations. She denies any nausea or vomiting. She states she has occasional diarrhea or constipation but manages those with [id number] medications. She denies any trouble swallowing. She denies any neuropathy symptoms. She denies any pain. Her ECOG is 1. Past Medical History: Anxiety Depression Hyperlipidemia Lichen sclerosis et atrophicus Ulcerative colitis Past Surgical History: Bilateral cataract excisions Caesarean section Allergies: Amoxicillin, Penicillins, and Sulfa Antibiotics. Medications: Clobetasol Propionate (0.05 %) Cream Topical Take as Directed Lexapro 2 (20 mg) Tablet Oral daily Melatonin 1 (3 mg) Tablet Oral at bedtime Family History: Ms. Kaplan's mother at age 82: Dementia. Ms. Kaplan's father at age 83: stroke. Ms. Kaplan has 1 sister who is : lung cancer. Father of stroke at age 83. Mother at age 82 with dementia. She has 2 brothers. One has diabetes and the other has some type of neurological disorder. One sister of lung cancer at age 62. She was a non-smoker. She has 4 living sisters. One has coronary artery disease and has been treated for vulvar cancer. Social History: Ms. Kaplan is . Ms. Kaplan has never smoked. She is a former drinker. She is a non-smoker. She does not drink alcohol. Review Of Symptoms: see above Vital Signs: Performed on Aug 08, 2020 09:15 Height - 62.00 in Temperature - 96.7 F (LOW) Pulse - 60 /min Respiration - 16 /min BP - 127/57 mm(hg) O2 Sat - 99 % Pain - 0 Fatigue - 0,1 - No physically strenuous activity, but ambulatory and able to carry out light or sedentary work (e.g. office work, light house work). (ECOG) Physical Examination: Constitutional Alert, oriented, no acute distress. Skin pink, warm and dry. Head Normocephalic; atraumatic. Eyes Conjunctivae and sclerae are clear and without icterus. Pupils are reactive and equal. Neck Supple without masses or thyromegaly. No jugular venous distension. Hematologic/Lymphatic No petechiae or purpura. No tender or palpable lymph nodes in the cervical or supraclavicular areas. Respiratory Lungs are clear to auscultation without rhonchi or wheezing. Cardiovascular Regular rate and rhythm of heart without murmurs,clicks, gallops or rubs. Abdomen Non-tender, non-distended, no masses or ascites. Good bowel sounds noted in all quads. No guarding or rebound tenderness. No pulsatile masses. Back/Spine Non-tender to palpation. Extremities No visible deformities, no cyanosis, clubbing or edema. Musculoskeletal No tenderness or swelling, normal range of motion without obvious weakness. Integumentary No rashes or lesions. Neurologic No sensory or motor deficits, normal cerebellar function, normal gait. Psychiatric Alert and oriented times three. Coherent speech. Verbalizes understanding of our discussions today. Laboratory:Test performed on Aug 08, 2020 09:20 LDH (Total) 272 U/L Sodium 138 mmol/L Potassium 3.7 mmol/L Chloride 101 mmol/L CO2 27 mmol/L Anion Gap 13.7 BUN 14 mg/dL Creatinine 0.5 mg/dL Cr Clearance (Est) 109.3400 mL/min eGFR 122.7 mL/min Glucose 103 mg/dL Osmolality - Calculated 287 mOsm/kg Calcium 9.1 mg/dL Protein, Total 7.2 g/dL Albumin 4.2 g/dL Globulin 3.0 g/dL Bilirubin, Total 0.4 mg/dL ALT (SGPT) 48 U/L AST (SGOT) 40 U/L Alkaline Phosphatase 83 IU/L WBC 7.7 10 3/uL RBC 3.46 10 6/uL HGB 11.2 g/dL HCT 34.6 % MCV 100.0 fL MCH 32.4 pg MCHC 32.4 g/dL RDW 21.5 % Platelet Count 176 10 3/cmm MPV 10.6 fL Neutrophils 5.13 10 3/uL Lymphocytes 1.3 10 3/uL Monocytes 1.2 10 3/uL Eosinophils 0.0 10 3/uL Basophils 0.1 10 3/uL Neutrophil % 66.4 % Lymphocyte % 17.1 % Monocyte % 15.0 % Eosinophil % 0.1 % Basophils % 0.6 % NRBC % 0 % Impression: 1. 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 Bone marrow aspiration/biopsy on 06/02/2020 showed 40 to 50% blasts based on bone marrow biopsy immunohistochemical stains. 2. She has been on topical therapy for lichen sclerosis et atrophicus and for a skin eruption on her legs, presumably eczema. 3. Remote history of ulcerative colitis. 4. Hyperlipidemia, not requiring medication. 5. Anxiety/depression. Plan: PROBLEMS ADDRESSED TODAY 1. 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 Her bone marrow aspiration/biopsy on 06/02/2020 showed 40 to 50% blasts based on bone marrow biopsy immunohistochemical stains. The findings on the bone marrow aspiration/biopsy were reviewed with the patient and her family per Dr Bradshaw. Based on her presentation, it was suspected that she had myelodysplastic syndrome, but there were no overt indications of acute leukemia. However, based on the bone marrow biopsy immunohistochemical stains, the estimated blast count in the bone marrow is 40 to 50% or greater, which was consistent with acute leukemia. She was referred to [facility] [place] and seen there by Dr. Silva and Saeed on June 14 2020. It was recommended that she start treatment urgently with decitabine and venetoclax. An allogeneic transplant was also discussed but results of genetic testing were pending prior to making a recommendation. She began her first cycle of decitabine 20 mg per metered squared day 1 through 5 venetoclax 200 mg day 1 through 28 on June 20, 2020 as an inpatient due to the concerns of tumor lysis syndrome. She was admitted to the hospital between July 16 and July 22, 2020 initially presenting with perirectal pain and subsequently developing febrile neutropenia. She was diagnosed with cellulitis and found to have multiple groundglass nodules in her lungs with bilateral pleural effusions. This was felt to be most consistent with a fungal infection and she underwent bronchoscopy which did not really feel any source of infection. She was treated with a combination of vancomycin, cefepime, posaconazole and has recovered well. A. Proceed with cycle 2 decitabine days 1-5 B. Proceed with venetoclax 100 mg day 1 through 21 due to prolonged cytopenias with cycle 1. C. She will continue with prophylaxis with posaconazole 300 mg daily for total 21 days starting on 07/23/2020; acyclovir 400 mg 3 times daily. D. Today's labs were reviewed with Ms. Rodriguez and her son and a copy was given to them. WBC 7.7, hemoglobin 11.2, platelets 276,000 ANC is 5130. Potassium 3.7 random glucose 103 creatinine 0.5 ALT is 48 AST is 40 which is stable LDH is 272 which is down from 306 on July 31, 2020. 2. Chronic pain management A. She has chronic neck and shoulder pain which is managed by tramadol 50 mg 3 times daily as needed. She typically just takes it at night. B. Refill the tramadol to [facility] in [place], [place]. 3. Follow-up plan A. she will proceed with her appointment with infectious disease at [facility] on August 15. She is due to have follow-up CT of the chest to reevaluate her possible fungal pneumonia. B. She is to have weekly labs on Saturday and per [facility] orders. These are to include CBC CMP. She also have weekly PICC line management. C. We will plan to have her follow-up here in 1 month for cycle 3 decitabine venetoclax. She will return with CBC CMP and LDH. D. She is due for follow-up at [facility] 6 weeks from her August 01, 2020 follow-up. E. Mrs. Kaplan was instructed to contact us in interim should questions or problems arise. Total time spent in review of patient's records prior to the visit, discussion of side effect identification and management in relation to her treatment plan and answering questions to the treatment plan, as well asreviewing labs and post visit documentation was 55 minutes. Signed By: Mick Vasques-, AOCNP Callum Bradshaw MD <<Signature on File>>
[2020-08-25 13:10] LABS: Hematocrit 33.6 % (37.0-47.0); Hemoglobin 10.7 g/dL (11.5-15.3); Lymphocytes # 0.8 10^3/uL (0.8-4.8); Lymphocytes % 71.6 %; Mean Corpuscular HGB Conc 31.8 g/dL (30.0-36.0); Mean Corpuscular Hemoglobin 32.3 pg (28.0-34.0); Mean Corpuscular Volume 101.5 fL (81-99); Mean Platelet Volume 10.7 fL (7.4-10.4); Monocytes # 0.1 10^3/uL (0.2-0.9); Monocytes % 8.3 %; Neutrophils % 20.1 %; Nucleated Red Blood Cells % 0 %; Platelet Count 95 10^3/cmm (130-400); Red Blood Count 3.31 10^6/uL (4.1-5.3); Red Cell Distribution Width 22.4 % (12.1-15.1); White Blood Count 1.1 10^3/uL (4.0-10.0)
[2020-08-25 13:15] LABS: Neutrophils # 0.22 10^3/uL (1.8-7.7)
[2020-08-25 13:36] LABS: Lactate Dehydrogenase 236 U/L (135-214)
[2020-08-25 17:35] LABS: Alanine Aminotransferase 38 U/L (0-33); Albumin Level 4.4 g/dL (3.5-5.2); Alkaline Phosphatase 80 IU/L (35-105); Anion Gap 13.8 (5-19); Aspartate Amino Transferase 38 U/L (0-32); Blood Urea Nitrogen 8 mg/dL (8-23); Calcium 9.1 mg/dL (8.5-10.5); Carbon Dioxide 28 mmol/L (22-29); Chloride 102 mmol/L (98-107); Globulin 2.5 g/dL (1.3-4.6); Glomerular Filtration Rate 99.4 mL/min (90-130); Glucose 90 mg/dL (65-115); Osmolality Calculated 288 mOsm/kg (285-295); Potassium 3.8 mmol/L (3.5-5.1); Sodium 140 mmol/L (136-145); Total Bilirubin 0.7 mg/dL (0.15-1.2); Total Protein 6.9 g/dL (6.6-8.7)
== END 2020-08-26 23:59 | disposition home or self-care (01) ==
LOC: ONCMED 12:14
PROVIDERS: PCP Internal Medicine; Visit Provider Internal Medicine Medical Oncology
DX: Z51.11 Encounter for antineoplastic chemotherapy (principal); C92.00 Acute myeloblastic leukemia, not having achieved remission; D61.818 Other pancytopenia; F41.9 Anxiety disorder, unspecified; F32.9 Major depressive disorder, single episode, unspecified; E78.5 Hyperlipidemia, unspecified; L90.0 Lichen sclerosus et atrophicus; K51.90 Ulcerative colitis, unspecified, without complications; Z79.899 Other long term (current) drug therapy
CPT/HCPCS: 36592; 80053; 83615; 85025; 96375; 96413; 99215; J0894; J2405; J2469; J7050

== ENCOUNTER 2020-09-23 05:34 | Outpatient (RCR) | payer MEDICARE, SELFPAY ==
[2020-08-29 10:09] LABS: Hematocrit 33.1 % (37.0-47.0); Hemoglobin 10.6 g/dL (11.5-15.3); Lymphocytes # 0.8 10^3/uL (0.8-4.8); Lymphocytes % 85.4 %; Mean Corpuscular Hemoglobin 32.8 pg (28.0-34.0); Mean Corpuscular Volume 102.5 fL (81-99); Mean Platelet Volume 10.9 fL (7.4-10.4); Monocytes % 2.2 %; Neutrophils % 12.4 %; Nucleated Red Blood Cells % 0 %; Platelet Count 119 10^3/cmm (130-400); Red Blood Count 3.23 10^6/uL (4.1-5.3); Red Cell Distribution Width 21.9 % (12.1-15.1)
[2020-08-29 10:36] LABS: Alanine Aminotransferase 41 U/L (0-33); Albumin Level 4.1 g/dL (3.5-5.2); Alkaline Phosphatase 74 IU/L (35-105); Anion Gap 12.8 (5-19); Aspartate Amino Transferase 40 U/L (0-32); Blood Urea Nitrogen 11 mg/dL (8-23); Calcium 9.1 mg/dL (8.5-10.5); Carbon Dioxide 26 mmol/L (22-29); Chloride 106 mmol/L (98-107); Globulin 2.5 g/dL (1.3-4.6); Glomerular Filtration Rate 99.4 mL/min (90-130); Glucose 103 mg/dL (65-115); Lactate Dehydrogenase 223 U/L (135-214); Osmolality Calculated 292 mOsm/kg (285-295); Potassium 3.8 mmol/L (3.5-5.1); Sodium 141 mmol/L (136-145); Total Bilirubin 0.6 mg/dL (0.15-1.2); Total Protein 6.6 g/dL (6.6-8.7)
[2020-08-29 11:00] LABS: Neutrophils # 0.11 10^3/uL (1.8-7.7); White Blood Count 0.9 10^3/uL (4.0-10.0)
[2020-08-29 11:01] LABS: Slide Review Slide Review Perform
[2020-09-01 10:47] LABS: Hemoglobin 11.1 g/dL (11.5-15.3); Lymphocytes # 0.9 10^3/uL (0.8-4.8); Lymphocytes % 96.7 %; Mean Corpuscular HGB Conc 32.6 g/dL (30.0-36.0); Mean Corpuscular Hemoglobin 32.9 pg (28.0-34.0); Mean Corpuscular Volume 100.9 fL (81-99); Mean Platelet Volume 10.9 fL (7.4-10.4); Monocytes % 1.1 %; Neutrophils % 2.2 %; Nucleated Red Blood Cells % 0 %; Platelet Count 134 10^3/cmm (130-400); Red Blood Count 3.37 10^6/uL (4.1-5.3); Red Cell Distribution Width 21.2 % (12.1-15.1)
[2020-09-01 11:05] LABS: Alanine Aminotransferase 41 U/L (0-33); Albumin Level 4.2 g/dL (3.5-5.2); Alkaline Phosphatase 77 IU/L (35-105); Anion Gap 11.9 (5-19); Aspartate Amino Transferase 34 U/L (0-32); Blood Urea Nitrogen 16 mg/dL (8-23); Carbon Dioxide 28 mmol/L (22-29); Chloride 103 mmol/L (98-107); Globulin 2.4 g/dL (1.3-4.6); Glomerular Filtration Rate 99.4 mL/min (90-130); Glucose 101 mg/dL (65-115); Osmolality Calculated 289 mOsm/kg (285-295); Potassium 3.9 mmol/L (3.5-5.1); Sodium 139 mmol/L (136-145); Total Bilirubin 0.6 mg/dL (0.15-1.2); Total Protein 6.6 g/dL (6.6-8.7)
[2020-09-01 11:15] LABS: Slide Review Slide Review Perform
[2020-09-01 11:17] LABS: Neutrophils # 0.02 10^3/uL (1.8-7.7); White Blood Count 0.9 10^3/uL (4.0-10.0)
[2020-09-01 11:26] LABS: Lactate Dehydrogenase 211 U/L (135-214)
[2020-09-05 10:07] LABS: Alanine Aminotransferase 46 U/L (0-33); Albumin Level 4.2 g/dL (3.5-5.2); Alkaline Phosphatase 74 IU/L (35-105); Anion Gap 12.8 (5-19); Aspartate Amino Transferase 38 U/L (0-32); Blood Urea Nitrogen 11 mg/dL (8-23); Calcium 9.4 mg/dL (8.5-10.5); Carbon Dioxide 29 mmol/L (22-29); Chloride 103 mmol/L (98-107); Globulin 2.4 g/dL (1.3-4.6); Glomerular Filtration Rate 122.7 mL/min (90-130); Glucose 100 mg/dL (65-115); Lactate Dehydrogenase 175 U/L (135-214); Osmolality Calculated 291 mOsm/kg (285-295); Potassium 3.8 mmol/L (3.5-5.1); Sodium 141 mmol/L (136-145); Total Bilirubin 0.5 mg/dL (0.15-1.2); Total Protein 6.6 g/dL (6.6-8.7)
[2020-09-05 10:32] LABS: Hematocrit 35.4 % (37.0-47.0); Hemoglobin 11.6 g/dL (11.5-15.3); Lymphocytes # 0.9 10^3/uL (0.8-4.8); Lymphocytes % 78.8 %; Mean Corpuscular HGB Conc 32.8 g/dL (30.0-36.0); Mean Corpuscular Hemoglobin 33.8 pg (28.0-34.0); Mean Corpuscular Volume 103.2 fL (81-99); Mean Platelet Volume 10.4 fL (7.4-10.4); Monocytes # 0.1 10^3/uL (0.2-0.9); Monocytes % 8.5 %; Neutrophils % 11.9 %; Nucleated Red Blood Cells % 0 %; Platelet Count 138 10^3/cmm (130-400); Red Blood Count 3.43 10^6/uL (4.1-5.3); Red Cell Distribution Width 21.1 % (12.1-15.1); White Blood Count 1.2 10^3/uL (4.0-10.0)
[2020-09-05 10:57] LABS: Neutrophils # 0.14 10^3/uL (1.8-7.7)
[2020-09-05 10:58] LABS: Slide Review Slide Review Perform
[2020-09-08 11:45] LABS: Basophils % 0.9 %; Hemoglobin 11.3 g/dL (11.5-15.3); Lymphocytes # 1.2 10^3/uL (0.8-4.8); Lymphocytes % 54.5 %; Mean Corpuscular HGB Conc 33.2 g/dL (30.0-36.0); Mean Corpuscular Hemoglobin 34.2 pg (28.0-34.0); Mean Platelet Volume 11.5 fL (7.4-10.4); Monocytes # 0.5 10^3/uL (0.2-0.9); Monocytes % 21.3 %; Neutrophils % 22.8 %; Nucleated Red Blood Cells % 0 %; Platelet Count 136 10^3/cmm (130-400); Red Cell Distribution Width 20.8 % (12.1-15.1); White Blood Count 2.1 10^3/uL (4.0-10.0)
[2020-09-08 11:49] LABS: Neutrophils # 0.48 10^3/uL (1.8-7.7)
[2020-09-08 12:10] LABS: Alanine Aminotransferase 46 U/L (0-33); Albumin Level 4.1 g/dL (3.5-5.2); Alkaline Phosphatase 74 IU/L (35-105); Anion Gap 12.1 (5-19); Aspartate Amino Transferase 41 U/L (0-32); Blood Urea Nitrogen 12 mg/dL (8-23); Calcium 9.2 mg/dL (8.5-10.5); Carbon Dioxide 28 mmol/L (22-29); Chloride 104 mmol/L (98-107); Globulin 2.9 g/dL (1.3-4.6); Glomerular Filtration Rate 83.2 mL/min (90-130); Glucose 110 mg/dL (65-115); Lactate Dehydrogenase 185 U/L (135-214); Osmolality Calculated 290 mOsm/kg (285-295); Potassium 4.1 mmol/L (3.5-5.1); Sodium 140 mmol/L (136-145); Total Bilirubin 0.4 mg/dL (0.15-1.2)
--- NOTE | 2020-09-11 23:53 | ONC FU_ITS ---
[facility] Patient Note Patient: Eulalia Kaplan Unit #: [id number]: 1950 Dictated By: TONEY Vasques--DA SCOTTate of Visit: August 29, 2020 Onc MED Interim Note Ms. Kaplan had follow-up CBC today for her chemotherapy-induced neutropenia. Her ANC on August 25, 2020 was 220. It is 110 today. She had currently been taking Levaquin for prophylaxis for neutropenia however it is hurting her stomach. She does have a allergies to penicillin and sulfa. We will switch her to Ceftin 500 mg twice daily and have her try this. If it does hurt her stomach or she has any other adverse reactions she will stop it and let us know. She is advised to stop the venetoclax if she has not already off of it due to the neutropenia. We will plan to recheck her CBC on September 01 to make sure she is starting to recover. She was once again advised of neutropenic precautions and advised to call us if she has any fever or any signs of infection. She verbalized understanding and has no concerns at this time. Signed By: GRISELDA Vasques AOCNP <<Signature on File>>
[2020-09-19 10:22] LABS: Basophils % 0.2 %; Hematocrit 33.8 % (37.0-47.0); Hemoglobin 11.2 g/dL (11.5-15.3); Lymphocytes # 1.2 10^3/uL (0.8-4.8); Lymphocytes % 22.8 %; Mean Corpuscular HGB Conc 33.1 g/dL (30.0-36.0); Mean Corpuscular Hemoglobin 34.8 pg (28.0-34.0); Mean Platelet Volume 10.9 fL (7.4-10.4); Monocytes % 18.1 %; Neutrophils # 3.13 10^3/uL (1.8-7.7); Nucleated Red Blood Cells % 0 %; Platelet Count 126 10^3/cmm (130-400); Red Blood Count 3.22 10^6/uL (4.1-5.3); Red Cell Distribution Width 19.1 % (12.1-15.1); White Blood Count 5.4 10^3/uL (4.0-10.0)
[2020-09-19 10:42] LABS: Alanine Aminotransferase 23 U/L (0-33); Albumin Level 4.4 g/dL (3.5-5.2); Alkaline Phosphatase 84 IU/L (35-105); Aspartate Amino Transferase 21 U/L (0-32); Blood Urea Nitrogen 11 mg/dL (8-23); Calcium 9.1 mg/dL (8.5-10.5); Carbon Dioxide 26 mmol/L (22-29); Chloride 106 mmol/L (98-107); Globulin 2.1 g/dL (1.3-4.6); Glomerular Filtration Rate 158.7 mL/min (90-130); Glucose 91 mg/dL (65-115); Osmolality Calculated 291 mOsm/kg (285-295); Sodium 141 mmol/L (136-145); Total Bilirubin 0.4 mg/dL (0.15-1.2); Total Protein 6.5 g/dL (6.6-8.7)
[2020-09-19 10:49] LABS: Anion Gap 13.4 (5-19); Lactate Dehydrogenase 213 U/L (135-214); Potassium 4.4 mmol/L (3.5-5.1)
[2020-09-19] MEDS: sodium chloride 0.9% 250 ML IV (12:17)
--- NOTE | 2020-09-19 20:36 | ONC FU_ITS ---
Dr. Bradshaw Patient Follow-Up Note Patient: Eulalia Kaplan Unit #: [id number]: 1950 Dicatated By: Callum Bradshaw M.D.Date of Visit:September 19, 2020 Onc Med Follow-up/Prog Note Chief Complaint: Acute myeloid leukemia. 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 She had initially presented to Dr. Rosales with extreme fatigue. She was found to have a mild to moderately severe pancytopenia. Her bone marrow aspiration/biopsy on 06/02/2020 showed mildly hypercellularity, estimated at 30 to 50%. There were subtle dyspoietic features noted. Blast enumeration on the aspirate was noted to be challenging due to a paucity of spicules in the sample. Immunohistochemical stains on the biopsy showed strikingly increased CD34 positive blasts estimated at greater than 40 to 50% of the total cells. The appearance was felt to be consistent with acute myeloid leukemia, and with that finding she was referred to [facility] for further management. She was initially seen at [facility] by Dr. Ceferino Tipton on 06/13/2020. Her repeat bone marrow aspiration/biopsy showed acute myeloid leukemia with SRSF2, ASXL1, and RUNX1 mutations. She began treatment with 5-day decitabine in combination with venetoclax 200 mg daily for 28 days on 06/20/2020. She had a hospital admission from 07/16 to 07/22 for febrile neutropenia and suspected fungal pneumonia. Her repeat bone marrow aspiration/biopsy on 07/22/2020 showed complete remission. On 08/08/2020 she proceeded with cycle 2 of 5-day decitabine together with venetoclax 100 mg daily for 21 days. That cycle was complicated by prolonged neutropenia, but without fever or other complications. She had a follow-up visit at [facility] on 09/12/2020, and she has been recommended to proceed now with cycle 3 of decitabine/venetoclax at the same dose and schedule. Her medical history is otherwise significant for lichen sclerosis et atrophicus, confirmed by biopsy of the vulva and perineum in January 2019, and for a history of ulcerative colitis, for which she had been on treatment between 1981 in 1995. She also has a history of hyperlipidemia, but she has not required treatment for it. She has anxiety and depression, adequately managed with Lexapro. She is a non-smoker. She has seen for a follow-up visit. She says she feels great. She has good energy and she has normal activity. Her ECOG score is 0. Her appetite is getting better. Her weight is down 8 pounds compared to May. She has not had any recent fever or chills. She says her night sweating started up again recently, mainly involving her upper chest and neck area. She also complains that she has been getting significant swelling in her legs and feet in the late afternoon and evening. She has had no mouth sores. She has no difficulty swallowing. She occasionally has a little heaviness in her chest. She does not have cough and she does not complain of shortness of breath. She recently had some nausea, lasting just 1 day. Her acid reflux is adequately managed with Pepcid. She has no complaints with bowel or bladder function. She says her left hip sometimes bothers her at night. She has no other joint or bone pain. She does not complain of headache or dizziness. She has no focal neurologic symptoms. She does have some bruising, but no other bleeding manifestations. Medications: Clobetasol Propionate (0.05 %) Cream Topical Take as Directed, Lexapro 2 (20 mg) Tablet Oral daily, Melatonin 1 (3 mg) Tablet Oral at bedtime, Pantoprazole Sodium (20 mg) Tablet, enteric coated Oral daily Allergies: Amoxicillin, Penicillins, and Sulfa Antibiotics. Vital Signs: Performed on September 19, 2020 10:14 Height - 62.00 in Weight - 133 lbs (HIGH) BSA - 1.61 sq.m BMI - 24.33 Temperature - 96.6 F (LOW) Pulse - 60 /min Respiration - 18 /min BP - 126/69 mm(hg) O2 Sat - 98 % Pain - 0 Fatigue - 0 Physical Examination: Constitutional - She looks good generally, Eyes - Sclerae nonicteric. Conjunctivae clear, ENMT - No lesions noted in the oral cavity, Hematologic/Lymphatic - No cervical, clavicular, or axillary adenopathy, Respiratory - Lungs are clear with good air movement bilaterally, Cardiovascular - Heart rhythm is regular. There is no murmur, gallop, or rub noted, Abdomen - Soft. Liver and spleen are not enlarged. There is no abdominal mass or ascites noted and there is no inguinal adenopathy, Extremities - Slight edema, Neurologic - No focal neurologic deficits noted. Lab/Imaging: Test performed on September 19, 2020 10:05 LDH (Total) 213 U/L Sodium 141 mmol/L Potassium 4.4 mmol/L Chloride 106 mmol/L CO2 26 mmol/L Anion Gap 13.4 BUN 11 mg/dL Creatinine 0.4 mg/dL Cr Clearance (Est) 136.6800 mL/min eGFR 158.7 mL/min Glucose 91 mg/dL Osmolality - Calculated 291 mOsm/kg Calcium 9.1 mg/dL Protein, Total 6.5 g/dL Albumin 4.4 g/dL Globulin 2.1 g/dL Bilirubin, Total 0.4 mg/dL ALT (SGPT) 23 U/L AST (SGOT) 21 U/L Alkaline Phosphatase 84 IU/L WBC 5.4 10 3/uL RBC 3.22 10 6/uL HGB 11.2 g/dL HCT 33.8 % MCV 105.0 fL MCH 34.8 pg MCHC 33.1 g/dL RDW 19.1 % Platelet Count 126 10 3/cmm MPV 10.9 fL Neutrophils 3.13 10 3/uL Lymphocytes 1.2 10 3/uL Monocytes 1.0 10 3/uL Eosinophils 0.0 10 3/uL Basophils 0.0 10 3/uL Neutrophil % 58.0 % Lymphocyte % 22.8 % Monocyte % 18.1 % Eosinophil % 0.0 % Basophils % 0.2 % NRBC % 0 % Problem List: 1. Acute myeloid leukemia with SRSF2, ASXL1, and RUNX1 mutations. She had presented in May 2020 with pancytopenia and predominant neutropenia. 2. She has been on topical therapy for lichen sclerosis et atrophicus and for a skin eruption on her legs, presumably eczema. 3. Remote history of ulcerative colitis. 4. Hyperlipidemia, not requiring medication. 5. Anxiety/depression. Problems Addressed with this Encounter and Plan: 1. Patient with acute myeloid leukemia with SRSF2, ASXL1, and RUNX1 mutations. She began treatment with 5-day decitabine in combination with venetoclax 200 mg daily for 28 days on 06/20/2020. Her repeat bone marrow aspiration/biopsy on 07/22/2020 showed complete remission. On 08/08/2020 she proceeded with cycle 2 of 5-day decitabine together with venetoclax 100 mg daily for 21 days. That cycle was complicated by prolonged neutropenia, but without fever or other complications. She now has had adequate recovery and she will proceed with her 3rd cycle. The dosages will remain the same. Her blood counts will be monitored weekly. She has been recommended to continue her treatment now at 6-week intervals. 2. She had a hospital admission from 07/16 to 07/22 for febrile neutropenia and suspected fungal pneumonia. She remains on treatment with posaconazole. She also continues antiviral and antibacterial prophylaxis. 3. She has had recent onset of swelling in her lower legs and feet, typically occurring in the evening. She is advised to reduce her salt intake and to elevate her legs whenever possible. If the symptoms persist, she can be prescribed a diuretic as needed. Signed By: Callum Bradshaw M.D. <<Signature on File>>
[2020-09-20] MEDS: sodium chloride 0.9% 250 ML IV (10:43)
[2020-09-21] MEDS: sodium chloride 0.9% 250 ML 75 ML IV (10:33)
[2020-09-22 10:52] LABS: Basophils % 0.2 %; Hematocrit 33.1 % (37.0-47.0); Hemoglobin 10.9 g/dL (11.5-15.3); Lymphocytes # 0.9 10^3/uL (0.8-4.8); Lymphocytes % 19.8 %; Mean Corpuscular HGB Conc 32.9 g/dL (30.0-36.0); Mean Corpuscular Hemoglobin 34.8 pg (28.0-34.0); Mean Corpuscular Volume 105.8 fL (81-99); Monocytes # 0.6 10^3/uL (0.2-0.9); Monocytes % 13.4 %; Neutrophils # 3.01 10^3/uL (1.8-7.7); Neutrophils % 66.2 %; Nucleated Red Blood Cells % 0 %; Platelet Count 142 10^3/cmm (130-400); Red Blood Count 3.13 10^6/uL (4.1-5.3); Red Cell Distribution Width 19.1 % (12.1-15.1); White Blood Count 4.6 10^3/uL (4.0-10.0)
[2020-09-22 11:11] LABS: Alanine Aminotransferase 27 U/L (0-33); Alkaline Phosphatase 81 IU/L (35-105); Anion Gap 11.9 (5-19); Aspartate Amino Transferase 33 U/L (0-32); Blood Urea Nitrogen 11 mg/dL (8-23); Carbon Dioxide 28 mmol/L (22-29); Chloride 103 mmol/L (98-107); Globulin 2.8 g/dL (1.3-4.6); Glomerular Filtration Rate 122.7 mL/min (90-130); Glucose 88 mg/dL (65-115); Osmolality Calculated 287 mOsm/kg (285-295); Potassium 3.9 mmol/L (3.5-5.1); Sodium 139 mmol/L (136-145); Total Bilirubin 0.4 mg/dL (0.15-1.2); Total Protein 6.8 g/dL (6.6-8.7)
[2020-09-22] MEDS: sodium chloride 0.9% 250 ML IV (11:45)
[2020-09-23] MEDS: sodium chloride 0.9% 250 ML 75 ML IV (09:48)
[2020-09-23] MEDS: palonosetron 0.25 mg/5 mL SDV IV (09:48)
== END 2020-09-26 23:59 | disposition home or self-care (01) ==
LOC: ONCMED 05:34
PROVIDERS: PCP Internal Medicine; Visit Provider Internal Medicine Medical Oncology
DX: Z51.11 Encounter for antineoplastic chemotherapy (principal); C92.00 Acute myeloblastic leukemia, not having achieved remission; D61.818 Other pancytopenia; N90.4 Leukoplakia of vulva; L30.9 Dermatitis, unspecified; K51.90 Ulcerative colitis, unspecified, without complications; E78.5 Hyperlipidemia, unspecified; F41.9 Anxiety disorder, unspecified; F32.9 Major depressive disorder, single episode, unspecified; Z79.899 Other long term (current) drug therapy
CPT/HCPCS: 36592; 80053; 81000; 83615; 85025; 96375; 96413; 99214; J0894; J2469; J7050

== ENCOUNTER 2020-09-26 18:44 | Emergency (ER) | payer MEDICARE, SELFPAY ==
[2020-09-26 19:46] VITALS: BP 170/78; PULSE 69; RESP 16; TEMP 37.6; O2SAT 97; BMI 24.5
--- NOTE | 2020-09-26 19:55 | XRR_ITS ---
PROCEDURE INFORMATION: Exam: XR Chest Exam date and time: 09/26/2020 8:17 PM Age: 70 years old Clinical indication: Fever; Additional info: Neutropenic fever TECHNIQUE: Imaging protocol: XR of the chest. Views: 1 view. COMPARISON: CR XR chest 1V portable [id number] 06/29/2020 11:29 PM FINDINGS: Tubes, catheters and devices: Right subclavian approach central line is in satisfactory position, with distal tip at the SVC/RA junction. Lungs: Streaky opacities at the lung bases likely represent atelectasis. Pneumonia should be excluded clinically. Pleural spaces: Unremarkable. No pleural effusion. No pneumothorax. Heart/Mediastinum: Stable cardiomediastinal silhouette. Bones/joints: Unremarkable. XR/XR chest 1V portable [id number] IMPRESSION: Bibasilar atelectasis. Pneumonia should be excluded clinically.
[2020-09-26 20:28] LABS: Basophils % 0.2 %; Hemoglobin 10.2 g/dL (11.5-15.3); Lymphocytes # 0.8 10^3/uL (0.8-4.8); Lymphocytes % 19.7 %; Mean Corpuscular HGB Conc 32.9 g/dL (30.0-36.0); Mean Corpuscular Hemoglobin 34.3 pg (28.0-34.0); Mean Corpuscular Volume 104.4 fL (81-99); Mean Platelet Volume 9.8 fL (7.4-10.4); Monocytes # 0.4 10^3/uL (0.2-0.9); Monocytes % 10.3 %; Neutrophils # 2.89 10^3/uL (1.8-7.7); Neutrophils % 69.6 %; Nucleated Red Blood Cells % 0 %; Platelet Count 91 10^3/cmm (130-400); Red Blood Count 2.97 10^6/uL (4.1-5.3); Red Cell Distribution Width 17.6 % (12.1-15.1); White Blood Count 4.2 10^3/uL (4.0-10.0)
[2020-09-26 20:36] LABS: Bilirubin Urine Neg (Negative); Blood Urine 2+ (Negative); Glucose Urine UA Norm (Normal); Ketones Urine Negative (Negative); Leukocyte Esterase Urine Negative (Negative); Nitrate Urine Negative (Negative); Protein Urine Neg (Negative); Urine Appearance Clear (CLEAR); Urine Color Yellow (Yellow); Urobilinogen Urine Norm (Negative); pH Urine 6 (5-7)
[2020-09-26 20:37] LABS: Add Urine Culture? No; Add Urine Microscopic? YES; Bacteria Urine TRACE /hpf; Calcium Oxalate Crystals Urine 0-4 /hpf; Mucus Urine TRACE /hpf; RBC Urine 0-4 /hpf (0-2); Squamous Epithelial Cell Urine 0-4 /hpf (0-5); WBC Urine 0-4 /hpf (0-5)
[2020-09-26 20:45] LABS: Lactate (Lactic Acid level) 0.6 mmol/L (0.5-2.2)
[2020-09-26 20:46] LABS: Alanine Aminotransferase 27 U/L (0-33); Albumin Level 4.1 g/dL (3.5-5.2); Alkaline Phosphatase 84 IU/L (35-105); Anion Gap 12.5 (5-19); Aspartate Amino Transferase 30 U/L (0-32); Blood Urea Nitrogen 12 mg/dL (8-23); C Reactive Protein 22.3 mg/L (0.0-4.9); Calcium 8.8 mg/dL (8.5-10.5); Carbon Dioxide 28 mmol/L (22-29); Chloride 102 mmol/L (98-107); Globulin 2.1 g/dL (1.3-4.6); Glomerular Filtration Rate 122.7 mL/min (90-130); Glucose 90 mg/dL (65-115); Lipase 62 U/L (13-60); Osmolality Calculated 287 mOsm/kg (285-295); Potassium 3.5 mmol/L (3.5-5.1); Sodium 139 mmol/L (136-145); Total Bilirubin 0.6 mg/dL (0.15-1.2); Total Protein 6.2 g/dL (6.6-8.7)
--- NOTE | 2020-09-26 21:18 | W.ED.FEVER ---
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 Bradshaw and an oncologist in [place]. History is obtained from the patient and from her local oncologist, Dr. Bradshaw. According to her oncologist she has episodes of significant neutropenia and he is concerned that as she has a fever today she will need to be worked up and placed on antibiotics. The patient states that she started feeling unwell yesterday but thought it was just allergies and that today she noticed a fever this evening. When she called Dr. Bradshaw he advised that she come to the emergency department to be evaluated for neutropenia and to determine if she needs to be hospitalized or if she can be treated outpatient. The patient denies nausea or vomiting. She denies shortness of breath. She denies urinary symptoms. MD elicited complaint: fever Pertinent past history: immunosuppression Onset (ago): day(s) (1) Measured temperature: 100.2 F Context: on chemotherapy Exacerbating factors: nothing Relieving factors: nothing Associated symptoms: Reports cough; Deny abdominal pain, flank pain, chills, chest pain, confusion, diarrhea, dysuria, extremity pain, headache(s), myalgias, nasal congestion, nausea, night sweats, rash, rhinorrhea, short of breath, sinus pain, stiffness, sore throat, vaginal discharge, vomiting or weight loss Treatments prior to arrival fever: none Review of Systems General: Reports: 10 or more systems reviewed and unremarkable except in HPI and below Const: Denies: chills or night sweats ENMT: Denies: nasal congestion or sinus pain Card: Denies: chest pain GI: Denies: abdominal pain, nausea, vomiting or diarrhea : Denies: flank pain, dysuria or vaginal discharge Musc: Denies: extremity pain Neuro: Denies: headache(s) or confusion PFSH ED PFSH: Medical History (Reviewed 09/26/20 @ 22:08 by Jayna Cisse MD, [facility] [place]) AML (acute myeloblastic leukemia) Diagnosed in 2020 and she is currently undergoing chemotherapy at [facility]--this is being managed by the oncology doctors in [place] as well Depression Symptoms controlled on Lexapro managed by her primary care provider Lichen sclerosus Diagnosed in January 2019 with a vulvar biopsy-patient has not been compliant with using the clobetasol. No pertinent past medical history Denies diabetes, asthma, hypertension, seizures, DVT/PE PCP: Adele Rosales Ulcerative colitis States that she has had ulcerative colitis since about the age of 32. She states she last had a colonoscopy in [place] in 2018 that was within normal limits. She is not currently on any medication for this Surgical History (Reviewed 09/26/20 @ 22:08 by Jayna Cisse MD, [facility] [place]) S/P section Performed in the 1970s via vertical midline infraumbilical incision Family History (Reviewed 09/26/20 @ 22:08 by Jayna Cisse MD, [facility] [place]) Sister Hyperlipidemia Hypertension Vulvar cancer Brother Hyperlipidemia Hypertension Diabetes Father Stroke Denies family history of Cervical cancer Colon cancer Ovarian cancer DVT (deep venous thrombosis) Breast cancer Pulmonary embolism Uterine cancer Social History (Reviewed 09/26/20 @ 22:08 by Jayna Cisse MD, [facility] [place]) Smoking and tobacco status: never smoked Alcohol intake: unknown Physical Exam Const: COMMON NORMALS: no acute distress, average body habitus, patient oriented x3, no limitations, healthy appearing, alert and well nourished HENMT: COMMON NORMALS: normocephalic, atraumatic and moist oral mucous membranes HEAD & SCALP: normocephalic and atraumatic Neck/C-Spine: COMMON NORMALS: no meningeal signs and no JVD Resp: COMMON NORMALS: normal respiratory effort, No retractions, No use of accessory muscles, clear to auscultation bilaterally and percussion normal AUSCULTATION: clear to auscultation bilaterally PERCUSSION: percussion normal Cardio: COMMON NORMALS: no JVD, regular rate, regular rhythm, S1 normal heart sound present, S2 normal heart sound present, No gallops present (Cardio), No clicks present (Cardio), No murmurs present (Cardio), No rub (Cardio) and Peripheral pulses 2+ throughout RATE: regular rate RHYTHM: regular rhythm HEART SOUNDS: S1 normal heart sound present and S2 normal heart sound present PERIPHERAL PULSES: Peripheral pulses 2+ throughout GI: COMMON NORMALS: Normal to inspection, nondistended, normoactive bowel sounds present, Soft to palpation, non-tender, No hepatosplenomegaly present, no masses and no bruits PALPATION: Yes Soft to palpation and Yes No hepatosplenomegaly present Extremity: COMMON NORMALS: normal to inspection, full ROM, capillary refill normal, no calf tenderness and no pedal edema Neuro: COMMON NORMALS: patient oriented x3 SENSORIUM/ORIENTATION: Yes alert MENINGEAL SIGNS: Yes no meningeal signs Skin: COMMON NORMALS: no rashes or lesions noted, no wounds, turgor normal, no jaundice, no petechiae and no mottling GENERAL SKIN EXAM: no rashes or lesions noted and turgor normal Course Reevaluation(s): Reevaluation #1: Discussed her lab and imaging findings with her as well as my conversation with Dr. Bradshaw. She will be discharged home with a prescription for cefuroxime. She voiced understanding and is in agreement with the plan. Time: 21:18 Consultations: Consultation #1: Discussed the patient with Dr. Bradshaw, her local oncologist. He advised that we check neutrophil count, obtain blood cultures, work-up to see if she has any obvious infection etiology. After that we will determine her disposition. Time: 20:07 Consultation #2: Discussed her lab and imaging findings with Dr. Bradshaw. Absolute neutrophil count is good, no signs of infection. He advises that we will discharge her home on an oral cephalosporin such as cefuroxime. Time: 21:13 Vital Signs: Vital signs: Vital Signs Temperature 99.7 F H 09/26/20 19:46 Pulse Rate 69 09/26/20 19:46 Respiratory Rate 16 09/26/20 19:46 Blood Pressure 170/78 09/26/20 19:46 Pulse Oximetry 97 09/26/20 19:46 MDM - Fever MDM Narrative: Medical decision making narrative: 70-year-old female patient with AML who is currently on chemotherapy. She has had episodes of severe neutropenia and she developed a fever this evening. She was therefore sent here to be evaluated. Evaluation in the emergency department shows her absolute neutrophil count is normal at 2940. No obvious signs of infection. Chest x-ray was unremarkable. She was given a dose of ceftriaxone in the emergency department and discharged home on oral cefuroxime per oncology recommendation. Medical Records: Attestation: I reviewed the patient's medical records. Lab Data: Attestation: I reviewed the patient's lab results. Labs: Lab Results 09/26/20 09/26/20 09/26/20 Range/Units 20:08 20:18 20:18 WBC 4.2 (4.0-10.0) 10^3/ uL RBC 2.97 L (4.1-5.3) 10^6/u L Hgb 10.2 L (11.5-15.3) g/dL Hct 31.0 L (37.0-47.0) % MCV 104.4 H (81-99) fL MCH 34.3 H (28.0-34.0) pg MCHC 32.9 (30.0-36.0) g/dL RDW 17.6 H (12.1-15.1) % Plt Count 91 L (130-400) 10^3/c mm MPV 9.8 (7.4-10.4) fL Neut % (Auto) 69.6 % Lymph % (Auto) 19.7 % [place] % (Auto) 10.3 % Eos % (Auto) 0.0 % Baso % (Auto) 0.2 % Neut # (Auto) 2.89 (1.8-7.7) 10^3/u L Lymph # (Auto) 0.8 (0.8-4.8) 10^3/u L [place] # (Auto) 0.4 (0.2-0.9) 10^3/u L Eos # (Auto) 0.0 (0.0-0.8) 10^3/u L Baso # (Auto) 0.0 (0.0-0.1) 10^3/u L Nucleated RBC % (a uto) 0 % Nucleated RBCs # 0.0 /100WBC Sodium 139 (136-145) mmol/L Potassium 3.5 (3.5-5.1) mmol/L Chloride 102 (98-107) mmol/L Carbon Dioxide 28 (22-29) mmol/L Anion Gap 12.5 (5-19) BUN 12 (8-23) mg/dL Creatinine 0.5 (0.5-0.9) mg/dL GFR Calculation 122.7 (90-130) mL/min Glucose 90 (65-115) mg/dL Calculated Osmolal ity 287 (285-295) mOsm/k g Lactate (0.5-2.2) mmol/L Calcium 8.8 (8.5-10.5) mg/dL Total Bilirubin 0.6 (0.15-1.2) mg/dL AST 30 (0-32) U/L ALT 27 (0-33) U/L Alkaline Phosphata se 84 (35-105) IU/L C-Reactive Protein 22.3 H (0.0-4.9) mg/L Total Protein 6.2 L (6.6-8.7) g/dL Albumin 4.1 (3.5-5.2) g/dL Globulin 2.1 (1.3-4.6) g/dL Lipase 62 H (13-60) U/L Procalcitonin 0.10 (0-0.5) ng/mL Urine Color Yellow (Yellow) Urine Appearance Clear (CLEAR) Urine pH 6 (5-7) Ur Specific Gravit y 1.010 (1.005-1.030) Urine Protein Neg (Negative) Urine Glucose (UA) Norm (Normal) Urine Ketones Negative (Negative) Urine Blood 2+ H (Negative) Urine Nitrate Negative (Negative) Urine Bilirubin Neg (Negative) Urine Urobilinogen Norm (Negative) mg/dL Ur Leukocyte [place] ase Negative (Negative) Urine RBC 0-4 H (0-2) /hpf Urine WBC 0-4 H (0-5) /hpf Ur Squamous Epith Cells 0-4 H (0-5) /hpf Calcium Oxalate Cr ystal 0-4 H /hpf Amorphous Sediment Not Reportable Urine Bacteria Trace (NONE) /hpf Urine Mucus Trace /hpf 09/26/20 Range/Units 20:18 WBC (4.0-10.0) 10^3/ uL RBC (4.1-5.3) 10^6/u L Hgb (11.5-15.3) g/dL Hct (37.0-47.0) % MCV (81-99) fL MCH (28.0-34.0) pg MCHC (30.0-36.0) g/dL RDW (12.1-15.1) % Plt Count (130-400) 10^3/c mm MPV (7.4-10.4) fL Neut % (Auto) % Lymph % (Auto) % [place] % (Auto) % Eos % (Auto) % Baso % (Auto) % Neut # (Auto) (1.8-7.7) 10^3/u L Lymph # (Auto) (0.8-4.8) 10^3/u L [place] # (Auto) (0.2-0.9) 10^3/u L Eos # (Auto) (0.0-0.8) 10^3/u L Baso # (Auto) (0.0-0.1) 10^3/u L Nucleated RBC % (a uto) % Nucleated RBCs # /100WBC Sodium (136-145) mmol/L Potassium (3.5-5.1) mmol/L Chloride (98-107) mmol/L Carbon Dioxide (22-29) mmol/L Anion Gap (5-19) BUN (8-23) mg/dL Creatinine (0.5-0.9) mg/dL GFR Calculation (90-130) mL/min Glucose (65-115) mg/dL Calculated Osmolal ity (285-295) mOsm/k g Lactate 0.6 (0.5-2.2) mmol/L Calcium (8.5-10.5) mg/dL Total Bilirubin (0.15-1.2) mg/dL AST (0-32) U/L ALT (0-33) U/L Alkaline Phosphata se (35-105) IU/L C-Reactive Protein (0.0-4.9) mg/L Total Protein (6.6-8.7) g/dL Albumin (3.5-5.2) g/dL Globulin (1.3-4.6) g/dL Lipase (13-60) U/L Procalcitonin (0-0.5) ng/mL Urine Color (Yellow) Urine Appearance (CLEAR) Urine pH (5-7) Ur Specific Gravit y (1.005-1.030) Urine Protein (Negative) Urine Glucose (UA) (Normal) Urine Ketones (Negative) Urine Blood (Negative) Urine Nitrate (Negative) Urine Bilirubin (Negative) Urine Urobilinogen (Negative) mg/dL Ur Leukocyte Carolina ase (Negative) Urine RBC (0-2) /hpf Urine WBC (0-5) /hpf Ur Squamous Epith Cells (0-5) /hpf Calcium Oxalate Cr ystal /hpf Amorphous Sediment Urine Bacteria (NONE) /hpf Urine Mucus /hpf Imaging Data^: CXR: Attestation: I personally reviewed and interpreted this imaging study as follows: My impression: No acute infiltrates. Discharge Plan Discharge Patient Disposition: Home Clinical Impression: AML (acute myeloblastic leukemia) Fever Qualifiers: Fever type: due to other condition Qualified Code(s): R50.81 - Fever presenting with conditions classified elsewhere Condition: Stable Prescriptions: New cefuroxime axetil 500 mg tablet 500 mg PO BID 7 Days Qty: 14 RF: 0 Continued escitalopram oxalate [Lexapro] 20 mg tablet 20 mg PO DAILY@1200 RF: 0 silver sulfadiazine [Silvadene] 1 % cream 1 applic topical DAILY Qty: 20 RF: 0 clobetasol 0.05 % cream 1 applic TOPICAL Q7D RF: 0 docusate sodium 1 tab PO DAILY@1200 RF: 0 ondansetron 8 mg Tablet,Disintegrating 8 mg PO Q12H RF: 0 venetoclax 100 mg Tablet 100 mg PO DAILY@1400 RF: 0 melatonin 3 mg Tablet,Disintegrating 3 mg PO DAILY@2200 PRN (Reason: Sleep) RF: 0 acyclovir 400 mg Tablet 400 mg PO TID@12,16,22 RF: 0 famotidine 40 mg Tablet 40 mg PO DAILY RF: 0 posaconazole 100 mg Tablet,Delayed Release (Dr/Ec) 300 mg PO DAILY@1200 RF: 0 triamcinolone acetonide 0.1 % ointment See Rx Instructions .ROUTE .COMPLEX RF: 0 tramadol 50 mg tablet 50 - 100 mg PO BID PRN (Reason: Pain) RF: 0 doxycycline monohydrate 100 mg capsule 100 mg PO BID@12,22 RF: 0 Probiotic 1 tab PO DAILY@1200 RF: 0 Discharge Orders: Discharge ED (Routine); Ordered 09/26/20 Ordered By: Jayna Cisse Referrals: Mercy Rosales MD [Primary Care Provider] - 4-7 days Callum Bradshaw MD [Hospitalist] - 1-3 days Discharge Diet: Usual diet Discharge Activity: Increase activity as tolerated Patient Instructions: Fever in Adults (ED), Acute Myeloid Leukemia (GEN) Activity Restrictions/Additional Instructions: Return for any new or worsening symptoms. Follow-up with Dr. Bradshaw within 3 days. Follow-up with your primary care provider within 1 week. Continue your home medications as prescribed. Take the antibiotic as prescribed. Coding Level of Care Code ED Plug Sorter for Cb Mccall
[2020-09-26] MEDS: cefTRIAXone 1,000 MG in sodium chloride 0.9% (plus) 50 ML 100 MG IV (21:29)
[2020-09-26 22:18] VITALS: BP 148/62; PULSE 71; RESP 17; TEMP 37.2; O2SAT 95
== END 2020-09-26 22:18 | disposition home or self-care (01) ==
PROVIDERS: Emergency Provider Family Medicine; PCP Internal Medicine
DX: C92.00 Acute myeloblastic leukemia, not having achieved remission (principal); R50.81 Fever presenting with conditions classified elsewhere
CPT/HCPCS: 36415; 71045; 80053; 81001; 83605; 83690; 84145; 85025; 86140; 87040; 96365; 99283; J0696

== ENCOUNTER 2020-10-20 05:47 | Outpatient (RCR) | payer MEDICARE, SELFPAY ==
[2020-09-29 10:27] LABS: Basophils % 0.6 %; Hemoglobin 9.8 g/dL (11.5-15.3); Nucleated Red Blood Cells % 0 %; Platelet Count 55 10^3/cmm (130-400)
[2020-09-29 10:37] LABS: Hematocrit 30.1 % (37.0-47.0); Lymphocytes # 0.6 10^3/uL (0.8-4.8); Lymphocytes % 35.1 %; Mean Corpuscular HGB Conc 32.6 g/dL (30.0-36.0); Mean Corpuscular Hemoglobin 34.5 pg (28.0-34.0); Mean Platelet Volume 10.3 fL (7.4-10.4); Monocytes # 0.3 10^3/uL (0.2-0.9); Monocytes % 15.2 %; Neutrophils % 48.5 %; Red Blood Count 2.84 10^6/uL (4.1-5.3); Red Cell Distribution Width 17.1 % (12.1-15.1); White Blood Count 1.7 10^3/uL (4.0-10.0)
[2020-09-29 11:01] LABS: Alanine Aminotransferase 21 U/L (0-33); Albumin Level 3.9 g/dL (3.5-5.2); Alkaline Phosphatase 78 IU/L (35-105); Anion Gap 10.6 (5-19); Aspartate Amino Transferase 33 U/L (0-32); Blood Urea Nitrogen 10 mg/dL (8-23); Calcium 8.8 mg/dL (8.5-10.5); Carbon Dioxide 30 mmol/L (22-29); Chloride 104 mmol/L (98-107); Globulin 2.6 g/dL (1.3-4.6); Glomerular Filtration Rate 158.7 mL/min (90-130); Glucose 90 mg/dL (65-115); Lactate Dehydrogenase 227 U/L (135-214); Osmolality Calculated 291 mOsm/kg (285-295); Potassium 3.6 mmol/L (3.5-5.1); Sodium 141 mmol/L (136-145); Total Bilirubin 0.4 mg/dL (0.15-1.2); Total Protein 6.5 g/dL (6.6-8.7)
[2020-09-29 11:12] LABS: Neutrophils # 0.83 10^3/uL (1.8-7.7); Slide Review Slide Review Perform
[2020-10-03 15:51] LABS: Hematocrit 29.8 % (37.0-47.0); Hemoglobin 9.7 g/dL (11.5-15.3); Lymphocytes # 0.9 10^3/uL (0.8-4.8); Lymphocytes % 71.8 %; Mean Corpuscular HGB Conc 32.6 g/dL (30.0-36.0); Mean Corpuscular Volume 104.6 fL (81-99); Mean Platelet Volume 9.3 fL (7.4-10.4); Monocytes # 0.1 10^3/uL (0.2-0.9); Monocytes % 9.9 %; Neutrophils % 18.3 %; Nucleated Red Blood Cells % 0 %; Platelet Count 30 10^3/cmm (130-400); Red Blood Count 2.85 10^6/uL (4.1-5.3); Red Cell Distribution Width 16.8 % (12.1-15.1); White Blood Count 1.3 10^3/uL (4.0-10.0)
[2020-10-03 16:04] LABS: Alanine Aminotransferase 23 U/L (0-33); Albumin Level 4.1 g/dL (3.5-5.2); Alkaline Phosphatase 84 IU/L (35-105); Anion Gap 12.8 (5-19); Aspartate Amino Transferase 25 U/L (0-32); Blood Urea Nitrogen 12 mg/dL (8-23); Calcium 8.9 mg/dL (8.5-10.5); Carbon Dioxide 27 mmol/L (22-29); Chloride 103 mmol/L (98-107); Globulin 2.2 g/dL (1.3-4.6); Glomerular Filtration Rate 158.7 mL/min (90-130); Glucose 72 mg/dL (65-115); Lactate Dehydrogenase 212 U/L (135-214); Osmolality Calculated 286 mOsm/kg (285-295); Potassium 3.8 mmol/L (3.5-5.1); Sodium 139 mmol/L (136-145); Total Bilirubin 0.4 mg/dL (0.15-1.2); Total Protein 6.3 g/dL (6.6-8.7)
[2020-10-03 16:15] LABS: Neutrophils # 0.24 10^3/uL (1.8-7.7)
[2020-10-03 16:16] LABS: Slide Review Slide Review Perform
[2020-10-06 15:42] LABS: Hematocrit 30.2 % (37.0-47.0); Hemoglobin 9.9 g/dL (11.5-15.3); Lymphocytes # 0.8 10^3/uL (0.8-4.8); Lymphocytes % 81.3 %; Mean Corpuscular HGB Conc 32.8 g/dL (30.0-36.0); Mean Corpuscular Hemoglobin 34.7 pg (28.0-34.0); Monocytes % 4.2 %; Neutrophils % 14.5 %; Nucleated Red Blood Cells % 0 %; Platelet Count 46 10^3/cmm (130-400); Red Blood Count 2.85 10^6/uL (4.1-5.3); Red Cell Distribution Width 16.9 % (12.1-15.1)
[2020-10-06 16:01] LABS: Alanine Aminotransferase 23 U/L (0-33); Albumin Level 3.9 g/dL (3.5-5.2); Alkaline Phosphatase 81 IU/L (35-105); Anion Gap 13.5 (5-19); Aspartate Amino Transferase 24 U/L (0-32); Blood Urea Nitrogen 11 mg/dL (8-23); Calcium 8.9 mg/dL (8.5-10.5); Carbon Dioxide 28 mmol/L (22-29); Chloride 102 mmol/L (98-107); Glomerular Filtration Rate 122.7 mL/min (90-130); Glucose 143 mg/dL (65-115); Lactate Dehydrogenase 210 U/L (135-214); Osmolality Calculated 292 mOsm/kg (285-295); Potassium 3.5 mmol/L (3.5-5.1); Sodium 140 mmol/L (136-145); Total Bilirubin 0.3 mg/dL (0.15-1.2); Total Protein 5.9 g/dL (6.6-8.7)
[2020-10-06 16:03] LABS: Slide Review Slide Review Perform
[2020-10-06 16:04] LABS: Neutrophils # 0.14 10^3/uL (1.8-7.7)
[2020-10-10 15:38] LABS: Hematocrit 31.6 % (37.0-47.0); Hemoglobin 10.5 g/dL (11.5-15.3); Lymphocytes # 1.1 10^3/uL (0.8-4.8); Lymphocytes % 90.6 %; Mean Corpuscular HGB Conc 33.2 g/dL (30.0-36.0); Mean Corpuscular Hemoglobin 34.9 pg (28.0-34.0); Mean Platelet Volume 10.1 fL (7.4-10.4); Monocytes % 2.6 %; Neutrophils % 6.8 %; Nucleated Red Blood Cells % 0 %; Red Blood Count 3.01 10^6/uL (4.1-5.3); Red Cell Distribution Width 16.7 % (12.1-15.1); White Blood Count 1.2 10^3/uL (4.0-10.0)
[2020-10-10 16:03] LABS: Alanine Aminotransferase 23 U/L (0-33); Albumin Level 4.4 g/dL (3.5-5.2); Alkaline Phosphatase 86 IU/L (35-105); Anion Gap 14.9 (5-19); Aspartate Amino Transferase 25 U/L (0-32); Blood Urea Nitrogen 10 mg/dL (8-23); Calcium 9.5 mg/dL (8.5-10.5); Carbon Dioxide 27 mmol/L (22-29); Chloride 104 mmol/L (98-107); Globulin 1.9 g/dL (1.3-4.6); Glomerular Filtration Rate 122.7 mL/min (90-130); Glucose 78 mg/dL (65-115); Lactate Dehydrogenase 195 U/L (135-214); Osmolality Calculated 292 mOsm/kg (285-295); Potassium 3.9 mmol/L (3.5-5.1); Sodium 142 mmol/L (136-145); Total Bilirubin 0.4 mg/dL (0.15-1.2); Total Protein 6.3 g/dL (6.6-8.7)
[2020-10-10 16:21] LABS: Neutrophils # 0.08 10^3/uL (1.8-7.7)
[2020-10-10 16:22] LABS: Platelet Count 76 10^3/cmm (130-400); Slide Review Slide Review Perform
[2020-10-13 13:47] LABS: Hematocrit 32.9 % (37.0-47.0); Hemoglobin 10.8 g/dL (11.5-15.3); Lymphocytes # 0.9 10^3/uL (0.8-4.8); Lymphocytes % 86.4 %; Mean Corpuscular HGB Conc 32.8 g/dL (30.0-36.0); Mean Corpuscular Hemoglobin 34.4 pg (28.0-34.0); Mean Corpuscular Volume 104.8 fL (81-99); Mean Platelet Volume 10.6 fL (7.4-10.4); Monocytes % 3.9 %; Neutrophils % 8.7 %; Nucleated Red Blood Cells % 0 %; Platelet Count 137 10^3/cmm (130-400); Red Blood Count 3.14 10^6/uL (4.1-5.3); Red Cell Distribution Width 16.5 % (12.1-15.1)
[2020-10-13 14:11] LABS: Alanine Aminotransferase 26 U/L (0-33); Albumin Level 4.1 g/dL (3.5-5.2); Alkaline Phosphatase 85 IU/L (35-105); Anion Gap 12.2 (5-19); Aspartate Amino Transferase 28 U/L (0-32); Blood Urea Nitrogen 9 mg/dL (8-23); Carbon Dioxide 28 mmol/L (22-29); Chloride 102 mmol/L (98-107); Globulin 2.2 g/dL (1.3-4.6); Glomerular Filtration Rate 99.4 mL/min (90-130); Glucose 93 mg/dL (65-115); Lactate Dehydrogenase 201 U/L (135-214); Osmolality Calculated 284 mOsm/kg (285-295); Potassium 4.2 mmol/L (3.5-5.1); Sodium 138 mmol/L (136-145); Total Bilirubin 0.5 mg/dL (0.15-1.2); Total Protein 6.3 g/dL (6.6-8.7)
[2020-10-13 14:31] LABS: Neutrophils # 0.09 10^3/uL (1.8-7.7); Slide Review Slide Review Perform
[2020-10-17 10:06] LABS: Basophils % 0.7 %; Hematocrit 32.8 % (37.0-47.0); Hemoglobin 10.7 g/dL (11.5-15.3); Lymphocytes # 0.8 10^3/uL (0.8-4.8); Lymphocytes % 59.7 %; Mean Corpuscular HGB Conc 32.6 g/dL (30.0-36.0); Mean Corpuscular Hemoglobin 34.4 pg (28.0-34.0); Mean Corpuscular Volume 105.5 fL (81-99); Mean Platelet Volume 11.6 fL (7.4-10.4); Monocytes # 0.2 10^3/uL (0.2-0.9); Monocytes % 13.7 %; Neutrophils % 24.5 %; Nucleated Red Blood Cells % 0 %; Platelet Count 175 10^3/cmm (130-400); Red Blood Count 3.11 10^6/uL (4.1-5.3); Red Cell Distribution Width 16.6 % (12.1-15.1); White Blood Count 1.4 10^3/uL (4.0-10.0)
[2020-10-17 10:15] LABS: Neutrophils # 0.34 10^3/uL (1.8-7.7)
[2020-10-17 10:44] LABS: Alanine Aminotransferase 21 U/L (0-33); Albumin Level 3.9 g/dL (3.5-5.2); Alkaline Phosphatase 79 IU/L (35-105); Blood Urea Nitrogen 8 mg/dL (8-23); Carbon Dioxide 30 mmol/L (22-29); Chloride 103 mmol/L (98-107); Globulin 2.4 g/dL (1.3-4.6); Glomerular Filtration Rate 122.7 mL/min (90-130); Glucose 96 mg/dL (65-115); Osmolality Calculated 292 mOsm/kg (285-295); Sodium 142 mmol/L (136-145); Total Bilirubin 0.3 mg/dL (0.15-1.2); Total Protein 6.3 g/dL (6.6-8.7)
[2020-10-17 10:51] LABS: Anion Gap 12.5 (5-19); Aspartate Amino Transferase 27 U/L (0-32); Potassium 3.5 mmol/L (3.5-5.1)
[2020-10-20 14:47] LABS: Basophils % 0.7 %; Hematocrit 33.2 % (37.0-47.0); Hemoglobin 10.9 g/dL (11.5-15.3); Lymphocytes # 1.2 10^3/uL (0.8-4.8); Lymphocytes % 40.8 %; Mean Corpuscular HGB Conc 32.8 g/dL (30.0-36.0); Mean Corpuscular Hemoglobin 34.4 pg (28.0-34.0); Mean Corpuscular Volume 104.7 fL (81-99); Mean Platelet Volume 11.3 fL (7.4-10.4); Monocytes # 0.8 10^3/uL (0.2-0.9); Monocytes % 26.8 %; Nucleated Red Blood Cells % 0 %; Platelet Count 143 10^3/cmm (130-400); Red Blood Count 3.17 10^6/uL (4.1-5.3); Red Cell Distribution Width 16.1 % (12.1-15.1); White Blood Count 2.9 10^3/uL (4.0-10.0)
[2020-10-20 15:02] LABS: Neutrophils # 0.89 10^3/uL (1.8-7.7)
[2020-10-20 15:21] LABS: Alanine Aminotransferase 16 U/L (0-33); Albumin Level 3.9 g/dL (3.5-5.2); Alkaline Phosphatase 81 IU/L (35-105); Aspartate Amino Transferase 23 U/L (0-32); Blood Urea Nitrogen 9 mg/dL (8-23); Calcium 8.8 mg/dL (8.5-10.5); Carbon Dioxide 29 mmol/L (22-29); Chloride 105 mmol/L (98-107); Globulin 2.3 g/dL (1.3-4.6); Glomerular Filtration Rate 122.7 mL/min (90-130); Glucose 86 mg/dL (65-115); Osmolality Calculated 290 mOsm/kg (285-295); Sodium 141 mmol/L (136-145); Total Bilirubin 0.3 mg/dL (0.15-1.2); Total Protein 6.2 g/dL (6.6-8.7)
[2020-10-20 15:23] LABS: Lactate Dehydrogenase 239 U/L (135-214)
== END 2020-10-26 23:59 | disposition home or self-care (01) ==
LOC: ONCMED 05:47
PROVIDERS: PCP Internal Medicine; Visit Provider Internal Medicine Medical Oncology
DX: C92.00 Acute myeloblastic leukemia, not having achieved remission (principal); D61.818 Other pancytopenia
CPT/HCPCS: 36592; 80053; 83615; 85025; 99211

== ENCOUNTER 2020-11-01 16:40 | Outpatient (RCR) | payer MEDICARE, SELFPAY ==
[2020-10-27 15:36] LABS: Basophils % 0.4 %; Hematocrit 35.5 % (37.0-47.0); Hemoglobin 11.5 g/dL (11.5-15.3); Lymphocytes % 21.7 %; Mean Corpuscular HGB Conc 32.4 g/dL (30.0-36.0); Mean Corpuscular Hemoglobin 33.9 pg (28.0-34.0); Mean Corpuscular Volume 104.7 fL (81-99); Mean Platelet Volume 10.1 fL (7.4-10.4); Monocytes % 21.7 %; Neutrophils # 2.63 10^3/uL (1.8-7.7); Neutrophils % 55.6 %; Nucleated Red Blood Cells % 0 %; Platelet Count 111 10^3/cmm (130-400); Red Blood Count 3.39 10^6/uL (4.1-5.3); Red Cell Distribution Width 16.1 % (12.1-15.1); White Blood Count 4.7 10^3/uL (4.0-10.0)
[2020-10-27 16:44] LABS: Alanine Aminotransferase 16 U/L (0-33); Alkaline Phosphatase 95 IU/L (35-105); Aspartate Amino Transferase 26 U/L (0-32); Blood Urea Nitrogen 7 mg/dL (8-23); Calcium 9.1 mg/dL (8.5-10.5); Carbon Dioxide 31 mmol/L (22-29); Chloride 101 mmol/L (98-107); Globulin 2.6 g/dL (1.3-4.6); Glomerular Filtration Rate 99.4 mL/min (90-130); Glucose 122 mg/dL (65-115); Lactate Dehydrogenase 246 U/L (135-214); Osmolality Calculated 295 mOsm/kg (285-295); Sodium 143 mmol/L (136-145); Total Bilirubin 0.4 mg/dL (0.15-1.2); Total Protein 6.6 g/dL (6.6-8.7)
[2020-11-01 16:23] LABS: Basophils % 0.3 %; Hematocrit 33.3 % (37.0-47.0); Lymphocytes # 0.8 10^3/uL (0.8-4.8); Lymphocytes % 20.7 %; Mean Corpuscular Hemoglobin 34.2 pg (28.0-34.0); Mean Corpuscular Volume 103.4 fL (81-99); Monocytes # 0.8 10^3/uL (0.2-0.9); Monocytes % 20.2 %; Neutrophils # 2.25 10^3/uL (1.8-7.7); Neutrophils % 58.3 %; Nucleated Red Blood Cells % 0 %; Platelet Count 101 10^3/cmm (130-400); Positive M 1; Red Blood Count 3.22 10^6/uL (4.1-5.3); Red Cell Distribution Width 16.4 % (12.1-15.1); White Blood Count 3.9 10^3/uL (4.0-10.0)
--- NOTE | 2020-11-01 16:27 | XRR_ITS ---
PROCEDURE INFORMATION: Exam: XR Chest Exam date and time: 11/01/2020 4:27 PM Age: 70 years old Clinical indication: Cough and fever; Patient HX: HX of leukemia; Additional info: Cough / fever x 5 days TECHNIQUE: Imaging protocol: XR of the chest. Views: 2 views. Total images: 2 COMPARISON: CR XR chest 1V portable [id number] 09/26/2020 8:03 PM FINDINGS: Tubes, catheters and devices: Right Infusaport catheter. Lungs: No visible active interstitial or alveolar airspace disease. Suspected mild component of COPD/chronic bronchitis. Pleural spaces: Unremarkable. No pleural effusion. No pneumothorax. Heart/Mediastinum: Cardiac structures and configuration stable and unremarkable. Bones/joints: Mild scoliotic curvature. XR/XR chest 2V* [id number] IMPRESSION: Nonacute.
[2020-11-01 16:46] LABS: Alanine Aminotransferase 16 U/L (0-33); Albumin Level 3.8 g/dL (3.5-5.2); Alkaline Phosphatase 84 IU/L (35-105); Anion Gap 14.3 (5-19); Aspartate Amino Transferase 29 U/L (0-32); Blood Urea Nitrogen 8 mg/dL (8-23); Calcium 9.1 mg/dL (8.5-10.5); Carbon Dioxide 29 mmol/L (22-29); Chloride 98 mmol/L (98-107); Globulin 2.6 g/dL (1.3-4.6); Glomerular Filtration Rate 99.4 mL/min (90-130); Glucose 92 mg/dL (65-115); Osmolality Calculated 284 mOsm/kg (285-295); Potassium 3.3 mmol/L (3.5-5.1); Sodium 138 mmol/L (136-145); Total Bilirubin 0.3 mg/dL (0.15-1.2); Total Protein 6.4 g/dL (6.6-8.7)
== END 2020-11-26 23:59 | disposition home or self-care (01) ==
LOC: ONCMED 16:40
PROVIDERS: PCP Internal Medicine; Visit Provider Internal Medicine Medical Oncology
DX: C92.00 Acute myeloblastic leukemia, not having achieved remission (principal); D61.818 Other pancytopenia; Z79.899 Other long term (current) drug therapy
CPT/HCPCS: 36415; 36591; 36592; 71046; 80053; 83615; 85025; 87040

== ENCOUNTER 2020-11-17 21:38 | Inpatient (IN) | payer MEDICARE, SELFPAY ==
[2020-11-17 21:47] VITALS: BP 181/83; PULSE 73; RESP 30; TEMP 38.8; O2SAT 85; BMI 22.3
--- NOTE | 2020-11-17 21:50 | ECG_ITS ---
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 Measurements Intervals [place] Rate: 62 P: 70 MO: 132 QRS: 72 QRSD: 114 T: 6 QT: 440 QTc: 449 Interpretive Statements SINUS RHYTHM MODERATE INTRAVENTRICULAR CONDUCTION DELAY [110+ ms QRS DURATION] ST DEVIATION AND MODERATE T-WAVE ABNORMALITY, CONSIDER LATERAL ISCHEMIA [-0.1+ mV T WAVE IN I/aVL/V5/V6] No previous ECG available for comparison Electronically Signed On 11-18-2020 14:54:07 CDT by Jose De Jesus Santo M.D. [email or web address] care [email or web address] medical [email or web address] [id number]
--- NOTE | 2020-11-17 21:50 | XRR_ITS ---
PROCEDURE INFORMATION: Exam: XR Chest Exam date and time: 11/17/2020 9:50 PM Age: 70 years old Clinical indication: Cough and shortness of breath; Prior surgery; Surgery type: Central line; Patient HX: HX leukemia, covid + 11/04/2020, cough/sob/weakness TECHNIQUE: Imaging protocol: XR of the chest. Views: 1 view. COMPARISON: CR XR chest 2V* [id number] 11/01/2020 4:38 PM FINDINGS: Tubes, catheters and devices: There is stable placement of a double-lumen catheter via the left subclavian vein. Lungs: There are new bilateral patchy interstitial opacities present within the mid and lower hemithoraces worrisome for a patchy bilateral interstitial pneumonia. Pleural spaces: Unremarkable. No pleural effusion. No pneumothorax. Heart/Mediastinum: Unremarkable. No cardiomegaly. Bones/joints: Unremarkable. XR/XR chest 1V portable [id number] IMPRESSION: Patchy bilateral interstitial opacities are now seen worrisome for a bilateral interstitial pneumonia. COVID-19 pneumonia cannot be excluded.
--- NOTE | 2020-11-17 21:50 | W.ED.SOB ---
HPI - SOB/Dyspnea General: Chief Complaint: Shortness of Breath/Dyspnea Stated Complaint: sob,weakness and covid + Time Seen by Provider: 11/17/20 21:40 History of Present Illness: HPI Narrative: This patient is a 71-year-old female has a history of leukemia and is followed by Dr. Brasdhaw oncology here locally and [facility] in [place]. Patient states that she was diagnosed with Covid pneumonia approximately 1 week ago while in [place]. Patient states she has been doing well but over the past several hours her to get increasingly short of breath fatigue and fever. Patient is getting chemotherapy. Patient's O2 sat on nasal cannula upon arrival was 84%. Patient states she does not feel well. Respiratory will come and place the patient on high flow nasal cannula. And will continue medical evaluation treat as needed. MD elicited complaint: shortness of breath and cough Associated symptoms: Reports fever(s); Deny abdominal pain, chest pain, extremity pain, lightheadedness, nausea, palpitations or vomiting Review of Systems General: Reports: 10 or more systems reviewed and unremarkable except in HPI and below Const: Reports: fever(s), body aches and fatigue; Denies: chills Eyes: Denies: change in vision or blurry vision ENMT: Denies: throat pain, hoarseness or mouth pain Card: Denies: chest pain, palpitations, irregular heart rhythm, edema, swelling of feet/ankles or lightheadedness Resp: Reports: dyspnea and productive cough; Denies: wheezing or pain on inspiration GI: Denies: abdominal pain, nausea or vomiting : Denies: flank pain, difficulty voiding, dysuria, urinary frequency, urinary urgency or urinary hesitancy Musc: Denies: neck pain, back pain, extremity pain, extremity swelling, joint pain, joint swelling, joint redness, joint warmth or limited range of motion Skin/Breast: Denies: rash, pruritus, erythema or skin tenderness Neuro: Denies: headache(s), numbness in extremities or weakness in extremities Psych: Denies: anxiety or depression PFSH ED PFSH: Medical History AML (acute myeloblastic leukemia) Diagnosed in 2020 and she is [place] [facility] [place] being [place] by the oncology doctors in [place] as well Depression Symptoms controlled on Lexapro managed by her primary care provider Lichen sclerosus Diagnosed in January 2019 with a vulvar biopsy-patient has not been compliant with using the clobetasol. No pertinent past medical history Denies diabetes, asthma, hypertension, seizures, DVT/PE PCP: Adele Bobby Ulcerative colitis States that she has had ulcerative colitis since about the age of 32. She states she last had a colonoscopy in [place] in 2018 that was within normal limits. She is not currently on any medication for this Surgical History S/P section Performed in the 1970s via vertical midline infraumbilical incision Family History Sister Hyperlipidemia Hypertension Vulvar cancer Brother Hyperlipidemia Hypertension Diabetes Father Stroke Denies family history of Cervical cancer Colon cancer Ovarian cancer DVT (deep venous thrombosis) Breast cancer Pulmonary embolism Uterine cancer Social History Smoking and tobacco status: never smoked Alcohol intake: unknown Physical Exam Const: COMMON NORMALS: no acute distress, average body habitus, patient oriented x3, no limitations, healthy appearing, alert and well nourished HENMT: COMMON NORMALS: normocephalic, atraumatic, hearing grossly normal bilaterally, external ears normal, EAC's normal, TM's normal bilaterally, Normal external nose present, Normal nasal mucous membranes and turbinates present, moist oral mucous membranes, oropharynx normal, dentition normal and gingiva normal HEAD & SCALP: normocephalic and atraumatic NOSE: Normal external nose present and Normal nasal mucous membranes and turbinates present EXTERNAL EAR: Yes external ears normal EXTERNAL AUDITORY CANAL: EAC's normal TYMPANIC MEMBRANE: TM's normal bilaterally Neck/C-Spine: COMMON NORMALS: full ROM, no lymphadenopathy, supple, no meningeal signs, no JVD, Thyroid normal and No carotid bruits THYROID: Thyroid normal Chest: COMMONS NORMALS: normal inspection of the chest, normal palpation of entire chest wall, normal inspection of the breasts and normal palpation of the breasts Breast/axilla inspection: Yes normal inspection of the breasts BREAST/AXILLA PALPATION: Yes normal palpation of the breasts Resp: COMMON NORMALS: normal respiratory effort, No retractions, No use of accessory muscles, clear to auscultation bilaterally and percussion normal AUSCULTATION: clear to auscultation bilaterally PERCUSSION: percussion normal Cardio: COMMON NORMALS: no JVD, regular rate, regular rhythm, S1 normal heart sound present, S2 normal heart sound present, No gallops present (Cardio), No clicks present (Cardio), No murmurs present (Cardio), No rub (Cardio) and Peripheral pulses 2+ throughout RATE: regular rate RHYTHM: regular rhythm HEART SOUNDS: S1 normal heart sound present and S2 normal heart sound present PERIPHERAL PULSES: Peripheral pulses 2+ throughout GI: COMMON NORMALS: Normal to inspection, nondistended, normoactive bowel sounds present, Soft to palpation, non-tender, No hepatosplenomegaly present, no masses and no bruits PALPATION: Yes Soft to palpation and Yes No hepatosplenomegaly present Back/Pelvis: COMMON NORMALS: thoracic and lumbar spine normal to inspection, no thoracic nor lumbar tenderness, thoraco-lumbar ROM normal and straight leg raise negative bilaterally Extremity: COMMON NORMALS: normal to inspection, full ROM, capillary refill normal, no joint enlargement, no clubbing, cyanosis or edema, no calf tenderness and no pedal edema Neuro: COMMON NORMALS: patient oriented x3 SENSORIUM/ORIENTATION: Yes alert MENINGEAL SIGNS: Yes no meningeal signs Course Reevaluation(s): Reevaluation #1: I did discuss at length with patient about findings. Covid pneumonia worsening symptoms. Patient is agreeable to be admitted to the hospital. Time: 23:56 Consultations: Consultation #1: I did discuss at length with Dr. Gastelum he is agreed admit the patient to the hospital for further evaluation and treatment. He will see patient write additional orders Vital Signs: Vital signs: Vital Signs Temperature 101.9 F H 11/17/20 21:47 Pulse Rate 92 11/17/20 22:15 Respiratory Rate 24 H 11/17/20 22:05 Blood Pressure 181/83 11/17/20 21:47 Pulse Oximetry 91 11/17/20 22:05 MDM - SOB/Dyspnea MDM Narrative: Medical decision making narrative: This patient is a 71-year-old female has a history of leukemia and is followed by Dr. Bradshaw oncology here locally and [facility] in [place]. Patient states that she was diagnosed with Covid pneumonia approximately 1 week ago while in [place]. Patient states she has been doing well but over the past several hours her to get increasingly short of breath fatigue and fever. Patient is getting chemotherapy. Patient's O2 sat on nasal cannula upon arrival was 84%. Patient states she does not feel well. Respiratory will come and place the patient on high flow nasal cannula. Patient is on high flow nasal cannula at this time her O2 sats is anywhere from 87-91. Patient is Covid pneumonia. Elevated D-dimer. Patient will get a CTA prior to going to the floor. I did discuss at length with Dr. Gastelum he is agreed admit the patient to the hospital for further evaluation and treatment. He will see patient write additional orders Lab Data: Labs: Lab Results 11/17/20 11/17/20 11/17/20 Range/Units 22:04 22:28 22:28 WBC 9.0 (4.0-10.0) 10^3/ uL RBC 2.94 L (4.1-5.3) 10^6/u L Hgb 9.6 L (11.5-15.3) g/dL Hct 29.3 L (37.0-47.0) % MCV 99.7 H (81-99) fL MCH 32.7 (28.0-34.0) pg MCHC 32.8 (30.0-36.0) g/dL RDW 16.6 H (12.1-15.1) % Plt Count 58 L (130-400) 10^3/c mm MPV Not Reportable Neut % (Auto) 88.1 % Lymph % (Auto) 5.3 % Bay % (Auto) 5.8 % Eos % (Auto) 0.0 % Baso % (Auto) 0.1 % Neut # (Auto) 7.89 H (1.8-7.7) 10^3/u L Lymph # (Auto) 0.5 L (0.8-4.8) 10^3/u L Bay # (Auto) 0.5 (0.2-0.9) 10^3/u L Eos # (Auto) 0.0 (0.0-0.8) 10^3/u L Baso # (Auto) 0.0 (0.0-0.1) 10^3/u L Nucleated RBC % (a uto) 0.2 % Nucleated RBCs # 0.0 /100WBC PT 15.90 H (12.1-14.9) SECO NDS INR 1.23 H (0.8-1.2) APTT 34.2 (23.9-36.7) SECO NDS D-Dimer 2.74 H (0-0.59) ug/mIFE U Specimen Type Arterial Sample Site Radial, right ABG pH 7.51 H (7.35-7.45) ABG pCO2 43.0 (35-45) mmHg ABG pO2 67.2 L (80.0-100.0) mmH g ABG HCO3 33.9 H (22-26) mmol/L ABG O2 Saturation 94.4 ABG Base Excess 9.8 H (-2.0-2.0) mmol/ L Kevon Test Pos A-a O2 Gradient 3.9 L (5-10) mmHg Hematocrit 30.9 L (37-47) % Hgb O2 Saturation 92.5 L (95-100) % Carboxyhemoglobin 1.5 (0.4-20.1) %THgb Methemoglobin 0.5 (0.4-1.5) % Total Hemoglobin 10.1 L (12-16) g/dL Sodium 133.0 (131-143) mmol/L Potassium 2.8 L (3.5-5.0) mmol/L Glucose 116.0 H (70-115) mg/dL Ionized Calcium 1.1 (1.1-1.4) mmol/L O2 Delivery Device Nc O2 Liters/Min 12.0 % Professional Services Consultant ID Harkr Chloride (98-107) mmol/L Carbon Dioxide (22-29) mmol/L Anion Gap (5-19) BUN (8-23) mg/dL Creatinine (0.5-0.9) mg/dL GFR Calculation (90-130) mL/min Calculated Osmolal ity (285-295) mOsm/k g Lactic Acid (0.5-2.2) mmol/L Calcium (8.5-10.5) mg/dL Total Bilirubin (0.15-1.2) mg/dL AST (0-32) U/L ALT (0-33) U/L Alkaline Phosphata se (35-105) IU/L Troponin T Baselin e (0-10) ng/L NT-Pro-B Natriuret Pep (0-125) pg/mL Total Protein (6.6-8.7) g/dL Albumin (3.5-5.2) g/dL Globulin (1.3-4.6) g/dL 11/17/20 11/17/20 11/17/20 Range/Units 22:28 22:28 22:28 WBC (4.0-10.0) 10^3/ uL RBC (4.1-5.3) 10^6/u L Hgb (11.5-15.3) g/dL Hct (37.0-47.0) % MCV (81-99) fL MCH (28.0-34.0) pg MCHC (30.0-36.0) g/dL RDW (12.1-15.1) % Plt Count (130-400) 10^3/c mm MPV Neut % (Auto) % Lymph % (Auto) % Bay % (Auto) % Eos % (Auto) % Baso % (Auto) % Neut # (Auto) (1.8-7.7) 10^3/u L Lymph # (Auto) (0.8-4.8) 10^3/u L Bay # (Auto) (0.2-0.9) 10^3/u L Eos # (Auto) (0.0-0.8) 10^3/u L Baso # (Auto) (0.0-0.1) 10^3/u L Nucleated RBC % (a uto) % Nucleated RBCs # /100WBC PT (12.1-14.9) SECO NDS INR (0.8-1.2) APTT (23.9-36.7) SECO NDS D-Dimer (0-0.59) ug/mIFE U Specimen Type Sample Site ABG pH (7.35-7.45) ABG pCO2 (35-45) mmHg ABG pO2 (80.0-100.0) mmH g ABG HCO3 (22-26) mmol/L ABG O2 Saturation ABG Base Excess (-2.0-2.0) mmol/ L Kevon Test A-a O2 Gradient (5-10) mmHg Hematocrit (37-47) % Hgb O2 Saturation (95-100) % Carboxyhemoglobin (0.4-20.1) %THgb Methemoglobin (0.4-1.5) % Total Hemoglobin (12-16) g/dL Sodium 134 L (131-143) mmol/L Potassium 2.9 L (3.5-5.0) mmol/L Glucose 109 (70-115) mg/dL Ionized Calcium (1.1-1.4) mmol/L O2 Delivery Device O2 Liters/Min % Professional Services Consultant ID Chloride 93 L (98-107) mmol/L Carbon Dioxide 31 H (22-29) mmol/L Anion Gap 12.9 (5-19) BUN 11 (8-23) mg/dL Creatinine 0.6 (0.5-0.9) mg/dL GFR Calculation 99.4 (90-130) mL/min Calculated Osmolal ity 278 L (285-295) mOsm/k g Lactic Acid 1.3 (0.5-2.2) mmol/L Calcium 7.7 L (8.5-10.5) mg/dL Total Bilirubin 0.9 (0.15-1.2) mg/dL AST 58 H (0-32) U/L ALT 39 H (0-33) U/L Alkaline Phosphata se 93 (35-105) IU/L Troponin T Baselin e 17 H (0-10) ng/L NT-Pro-B Natriuret Pep 803 H (0-125) pg/mL Total Protein 4.9 L (6.6-8.7) g/dL Albumin 2.8 L (3.5-5.2) g/dL Globulin 2.1 (1.3-4.6) g/dL EKG Data^: EKG 1: Attestation: I personally reviewed and interpreted this EKG as follows: EKG Interpretation Date: 11/17/20 EKG interpretation time: 23:13 Prior EKG tracings: not available for review Interpretation: Sinus rhythm with interventricular conduction delay. Nonspecific ST changes heart rate 62 Discharge Plan Discharge Patient Disposition: Admitted As Inpatient Clinical Impression: Pneumonia due to COVID-19 virus, AML (acute myeloblastic leukemia), Shortness of breath after COVID-19 vaccination, Acute hypokalemia Condition: Stable Prescriptions: No Action escitalopram oxalate [Lexapro] 20 mg tablet 20 mg PO DAILY@1200 RF: 0 silver sulfadiazine [Silvadene] 1 % cream 1 applic topical DAILY Qty: 20 RF: 0 clobetasol 0.05 % cream 1 applic TOPICAL Q7D RF: 0 docusate sodium 1 tab PO DAILY@1200 RF: 0 ondansetron 8 mg Tablet,Disintegrating 8 mg PO Q12H RF: 0 venetoclax 100 mg Tablet 100 mg PO DAILY@1400 RF: 0 melatonin 3 mg Tablet,Disintegrating 3 mg PO DAILY@2200 PRN (Reason: Sleep) RF: 0 acyclovir 400 mg Tablet 400 mg PO TID@12,16,22 RF: 0 famotidine 40 mg Tablet 40 mg PO DAILY RF: 0 posaconazole 100 mg Tablet,Delayed Release (Dr/Ec) 300 mg PO DAILY@1200 RF: 0 triamcinolone acetonide 0.1 % ointment See Rx Instructions .ROUTE .COMPLEX RF: 0 tramadol 50 mg tablet 50 - 100 mg PO BID PRN (Reason: Pain) RF: 0 doxycycline monohydrate 100 mg capsule 100 mg PO BID@12,22 RF: 0 Probiotic 1 tab PO DAILY@1200 RF: 0 Referrals: Mercy Rosales MD [Primary Care Provider] - Coding Level of Care Code ED Optician for Chg Fwd Exam Comprehensive
[2020-11-17 22:05] VITALS: PULSE 89; RESP 24; O2SAT 91
[2020-11-17] MEDS: albuterol 8 gm MDI 2 PUFF INHALATION (22:05)
[2020-11-17 22:13] LABS: ABG PH Result 7.51 (7.35-7.45); Alveolar-Arterial Oxygen Gradi 3.9 mmHg (5-10); Arterial Blood Gas Hematocrit 30.9 % (37-47); Base Excess ABG 9.8 mmol/L (-2.0-2.0); Blood Gas Allen Test Pos; Blood Gas Sample Type Arterial; Carboxyhemoglobin 1.5 %THgb (0.4-20.1); HCO3 ABG 33.9 mmol/L (22-26); HGB O2 Sat 92.5 % (95-100); Ionized Calcium Level - ABG 1.1 mmol/L (1.1-1.4); Methemoglobin 0.5 % (0.4-1.5); Oxygen Saturation ABG 94.4; PO2 ABG 67.2 mmHg (80.0-100.0); Potassium Level - ABG 2.8 mmol/L (3.5-5.0); Total Hemoglobin 10.1 g/dL (12-16)
[2020-11-17 22:15] VITALS: PULSE 92
[2020-11-17 22:16] LABS: Blood Gas Operator Identificat HARKR; Blood Gas Sample Site Radial, right; Oxygen Device NC
[2020-11-17] MEDS: acetaminophen 325 mg Tablet 650 MG PO (22:23)
[2020-11-17] MEDS: dexamethasone 10 mg/mL INJ IV (22:23)
[2020-11-17] MEDS: sodium chloride 0.9% 500 ML IV (22:23)
[2020-11-17] MEDS: ondansetron 2 mg/ML SDV 2 mL 4 MG IVP (22:23)
[2020-11-17 22:39] LABS: Basophils % 0.1 %; Hematocrit 29.3 % (37.0-47.0); Hemoglobin 9.6 g/dL (11.5-15.3); Lymphocytes # 0.5 10^3/uL (0.8-4.8); Lymphocytes % 5.3 %; Mean Corpuscular HGB Conc 32.8 g/dL (30.0-36.0); Mean Corpuscular Hemoglobin 32.7 pg (28.0-34.0); Mean Corpuscular Volume 99.7 fL (81-99); Monocytes # 0.5 10^3/uL (0.2-0.9); Monocytes % 5.8 %; Neutrophils # 7.89 10^3/uL (1.8-7.7); Neutrophils % 88.1 %; Nucleated Red Blood Cells % 0.2 %; Platelet Count 58 10^3/cmm (130-400); Red Blood Count 2.94 10^6/uL (4.1-5.3); Red Cell Distribution Width 16.6 % (12.1-15.1)
[2020-11-17 22:52] LABS: INR 1.23 (0.8-1.2)
[2020-11-17 22:53] LABS: Partial Thromboplastin Time 34.2 SECONDS (23.9-36.7)
[2020-11-17 22:56] LABS: D Dimer 2.74 ug/mIFEU (0-0.59)
[2020-11-17 22:59] LABS: Alkaline Phosphatase 93 IU/L (35-105); Globulin 2.1 g/dL (1.3-4.6); Glucose 109 mg/dL (65-115)
[2020-11-17 23:00] LABS: Lactic Sepsis W/Reflex 1.3 mmol/L (0.5-2.2)
[2020-11-17 23:03] LABS: Troponin(5th) Baseline 17 ng/L (0-10)
[2020-11-17 23:12] LABS: Slide Review Slide Review Perform
[2020-11-17 23:22] LABS: Alanine Aminotransferase 39 U/L (0-33); Albumin Level 2.8 g/dL (3.5-5.2); Anion Gap 12.9 (5-19); Aspartate Amino Transferase 58 U/L (0-32); Blood Urea Nitrogen 11 mg/dL (8-23); Calcium 7.7 mg/dL (8.5-10.5); Carbon Dioxide 31 mmol/L (22-29); Chloride 93 mmol/L (98-107); Creatinine Clr Calc Pharmacy 53.2202; Glomerular Filtration Rate 99.4 mL/min (90-130); Osmolality Calculated 278 mOsm/kg (285-295); Sodium 134 mmol/L (136-145); Total Bilirubin 0.9 mg/dL (0.15-1.2); Total Protein 4.9 g/dL (6.6-8.7)
[2020-11-17 23:25] LABS: Potassium 2.9 mmol/L (3.5-5.1)
[2020-11-17 23:26] LABS: NT Pro B Type Natriuretic Pept 803 pg/mL (0-125)
--- NOTE | 2020-11-17 23:51 | ECG_ITS ---
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 Measurements Intervals [place] Rate: 63 P: 76 MT: 133 QRS: 73 QRSD: 104 T: 12 QT: 456 QTc: 469 Interpretive Statements SINUS RHYTHM WITH SINUS ARRHYTHMIA ST DEVIATION AND MODERATE T-WAVE ABNORMALITY, CONSIDER LATERAL ISCHEMIA [-0.1+ mV T WAVE IN I/aVL/V5/V6] Compared to ECG 11/17/2020 23:13:43 Intraventricular conduction delay no longer present T-wave abnormality still present Possible ischemia still present Electronically Signed On 11-18-2020 14:59:54 CDT by Jose De Jesus Santo M.D. [id number]
--- NOTE | 2020-11-17 23:55 | CTR_ITS ---
PROCEDURE INFORMATION: Exam: CTA Chest With Contrast Exam date and time: 11/17/2020 11:55 PM Age: 70 years old Clinical indication: Shortness of breath; Prior surgery; Surgery type: Central line; Additional info: SOB with elevated ddimer TECHNIQUE: Imaging protocol: Computed tomographic angiography of the chest with contrast. 3D rendering (Not supervised by radiologist): MIP and/or 3D reconstructed images were created by the technologist. Radiation optimization: All CT scans at this facility use at least one of these dose optimization techniques: automated exposure control; mA and/or kV adjustment per patient size (includes targeted exams where dose is matched to clinical indication); or iterative reconstruction. Contrast material: OMNI 300; Contrast volume: 63 ml; Contrast route: INTRAVENOUS (IV); COMPARISON: CR (CHEST, ) 11/17/2020 9:56 PM RADIATION DOSE METRICS: Total DLP (mGy-cm): 480.15 FINDINGS: Pulmonary arteries: Normal. No pulmonary emboli. Aorta: Unremarkable. No aortic aneurysm. No aortic dissection. Lungs: There are patchy bilateral ground-glass opacities with some consolidation present, findings suggesting a bilateral patchy interstitial pneumonia. Pleural spaces: Unremarkable. No pneumothorax. No pleural effusion. Heart: Unremarkable. No cardiomegaly. No pericardial effusion. Lymph nodes: Unremarkable. No enlarged lymph nodes. Bones/joints: Unremarkable. No acute fracture. Soft tissues: Unremarkable. CT/CT angio chest PE protcl [id number] IMPRESSION: 1. There is no evidence for pulmonary emboli. 2. Patchy bilateral ground-glass opacities with some consolidation compatible with a bilateral interstitial pneumonia.Commonly reported imaging features of COVID-19 pneumonia are present. Other processes such as influenza pneumonia and organizing pneumonia, as can be seen with drug toxicity and connective tissue disease, can cause a similar imaging pattern. (Reference: Roby) REFERENCES: Roby Bullock, et al., Radiological Society of [place] Expert Consensus Statement on Reporting Chest CT Findings Related to COVID-19. Endorsed by the Society of Thoracic Radiology, the [place] [employer], and RSNA. Published July 22, 2019. Radiation Dose CTDIVOL = (mGy): DLP = 480.15 (mGy-cm)
[2020-11-18] VITALS (101 sets, daily range): BP systolic 124–177; BP diastolic 53–86; PULSE 45–67; RESP 15–33; TEMP 36.1–36.9; O2SAT 87–99
[2020-11-18] MEDS: potassium chloride ER 20 mEq Tablet 40 MEQ PO ×2 (00:18→13:29)
--- NOTE | 2020-11-18 00:51 | PC.NURSE ---
assumed care of patient at 0000 on 11/18/20
--- NOTE | 2020-11-18 01:10 | P.HP_ITS ---
Providers/Chief Complaint Admitting Physician: Riana Gastelum Primary Care Provider: Mercy Rosales MD Chief Complaint: sob,weakness and covid + History of Present Illness 70-year-old female with past medical history of acute myeloid leukemia and recent diagnosis of COVID-19 who presented to the hospital with progressively worsening respiratory distress. This was associated with subjective fever, chills, increasing weakness. Upon arrival to emergency room patient's laboratory workup showed WBC 7.4, hemoglobin 9.4, hematocrit of 28.5 and a platelet count of 51. D-dimer 02.74. INR 1.23. Arterial blood gases showed pH 7.51, pCO2 43, PO2 of 67.2 and bicarb of 33.9. Sodium 134, potassium 2.9, chloride 93, bicarb 31, BUN 11 and creatinine of 0.6. AST of 58, ALT of 39 and alkaline phosphatase of 93 proBNP of 83 procalcitonin of 0.30. CTA chest showed patchy bilateral ground-glass opacities some consolidation compatible of bilateral interstitial pneumonia. In ER patient was given decadron 10 mg IV x 1. Upon admission patient was started on Cefepime and HFNC. Review of Systems General: Reports: 10 or more systems reviewed and unremarkable except in HPI and below Medications/Allergies Home Medications Medication Instructions Recorded Confirmed Last Taken Type acyclovir 400 mg PO TID@12,16,22 06/30/20 09/26/20 09/26/20 History docusate sodium 1 tab PO DAILY@1200 06/30/20 09/26/20 09/26/20 History melatonin 3 mg PO DAILY@2200 PRN 06/30/20 09/26/20 09/25/20 History ondansetron 8 mg PO Q12H 06/30/20 09/26/20 07/15/20 History venetoclax 100 mg PO DAILY@1400 06/30/20 09/26/20 09/26/20 History famotidine 40 mg PO DAILY 07/16/20 09/26/20 07/15/20 History posaconazole 300 mg PO DAILY@1200 07/16/20 09/26/20 09/26/20 History triamcinolone acetonide See Rx Instructions .ROUTE .COMPLEX 07/16/20 09/26/20 07/15/20 History escitalopram oxalate 20 mg tablet 20 mg PO DAILY@1200 tab 09/20/20 09/26/20 09/26/20 History silver sulfadiazine 1 % topical 1 applic TOPICAL DAILY #20 g 09/20/20 09/26/20 09/26/20 Rx cream clobetasol 0.05 % topical cream 1 applic TOPICAL Q7D g 09/21/20 09/26/20 09/25/20 History Probiotic 1 tab PO DAILY@1200 09/26/20 09/26/20 09/26/20 History doxycycline monohydrate 100 mg PO BID@09/26/20 09/26/20 09/26/20 History tramadol 50 - 100 mg PO BID PRN 09/26/20 09/26/20 Unknown History Allergies Allergy/AdvReac Type Severity Reaction Status Date / Time amoxicillin Allergy Rash, Verified 09/26/20 19:54 tongue swelling Sulfa (Sulfonamide Allergy Rash Verified 09/26/20 19:54 Antibiotics) PFSH Acute PFSH: Medical History AML (acute myeloblastic leukemia) Diagnosed in 2020 and she is currently undergoing chemotherapy at [facility] [place]this is being managed by the oncology doctors in [place] as well Depression Symptoms controlled on Lexapro managed by her primary care provider Lichen sclerosus Diagnosed in January 2019 with a vulvar biopsy-patient has not been compliant with using the clobetasol. No pertinent past medical history Denies diabetes, asthma, hypertension, seizures, DVT/PE PCP: Adele Rosales Ulcerative colitis States that she has had ulcerative colitis since about the age of 32. She states she last had a colonoscopy in [place] in 2018 that was within normal limits. She is not currently on any medication for this Surgical History S/P section Performed in the 1970s via vertical midline infraumbilical incision Family History Sister Hyperlipidemia Hypertension Vulvar cancer Brother Hyperlipidemia Hypertension Diabetes Father Stroke Denies family history of Cervical cancer Colon cancer Ovarian cancer DVT (deep venous thrombosis) Breast cancer Pulmonary embolism Uterine cancer Social History Smoking and tobacco status: never smoked Alcohol intake: unknown Vitals/I&O/Wt Last Vital Signs Temp 97.0 F L 11/18/20 01:52 Pulse 46 L 11/18/20 06:00 Resp 20 H 11/18/20 05:49 BP 157/65 11/18/20 05:40 Pulse Ox 98 11/18/20 05:49 11/17/20 11/18/20 11/18/20 22:59 06:59 14:59 Intake Total 550 / 550 Output Total 0 / 0 Balance 550 / 550 Weight last 48 hrs Weight 53.524 kg Physical Exam Narrative: EXAM NARRATIVE: General-Chronically ill-appearing, in mild respiratory distress HEENT -grossly unremarkable Chest mild labored respiration , tachypnea Abdomen- nontender nondistended Extremities-no edema Data : 11/18/20 04:34 11/17/20 22:28 Micro: Microbiology 11/18/20 04:34 Blood Culture - Preliminary Blood SPECIMEN COLLECTED 11/18/20 04:34 Blood Culture - Preliminary Blood SPECIMEN COLLECTED A&P Assessment and plan (1) Pneumonia due to COVID-19 virus: Status: Acute (2) Acute hypokalemia: Status: Acute Additional A&P Information Acute respiratory distress with hypoxia due to COVID-19 infection RR ? 22, Increase work of breathing, hypoxia rq HFNC Decadron 6 mg IV daily Remdesivir 200mg IV x1, 100 mg x 4 days Empirically started on Cefepime Follow up on culture Procal HFNC Wean as tolerated CTA ? No embolism Hypokalemia Replaced in ED Repeat BMP in a.m. DVT ppx Willl hold due to thrombocytopenia SCDs Attestations Medical Necessity Statement*: Will likely require over 2 midnight stay in hospital for evaluation treatment of COVID-19 pneumonia requiring high-flow nasal cannula Time Spent in Patient Care: Greater than 35 minutes (>than 50% of time spent in counselling and/or direct pt care on unit) . Coding Level of Care Code Acute Referral Rn for Cb [place] Diagnoses Pneumonia due to COVID-19 virus U07.1; J12.82 Acute hypokalemia E87.6
[2020-11-18 01:23] LABS: Troponin 5 2HR 17.49 ng/L (0-10); Troponin 5 2HR Delta 0.49 ABS# (0-10)
[2020-11-18] MEDS: enoxaparin 40 mg/0.4 mL Syringe SUBCUT (02:46)
[2020-11-18] MEDS: cefepime 2,000 MG in sodium chloride 0.9% (plus) 50 ML 100 MG IV (03:01)
[2020-11-18 05:34] LABS: Basophils % 0.1 %; Hematocrit 28.5 % (37.0-47.0); Hemoglobin 9.4 g/dL (11.5-15.3); Lymphocytes # 0.3 10^3/uL (0.8-4.8); Lymphocytes % 4.5 %; Mean Corpuscular Hemoglobin 32.8 pg (28.0-34.0); Mean Corpuscular Volume 99.3 fL (81-99); Monocytes # 0.2 10^3/uL (0.2-0.9); Monocytes % 2.7 %; Neutrophils # 6.77 10^3/uL (1.8-7.7); Neutrophils % 91.9 %; Nucleated Red Blood Cells % 0 %; Platelet Count 51 10^3/cmm (130-400); Red Blood Count 2.87 10^6/uL (4.1-5.3); Red Cell Distribution Width 16.6 % (12.1-15.1); White Blood Count 7.4 10^3/uL (4.0-10.0)
[2020-11-18 05:48] LABS: Slide Review Slide Review Perform
[2020-11-18 06:25] LABS: Ferritin 6836 ng/mL (15-150)
[2020-11-18] MEDS: dexamethasone 4 mg/mL INJ 6 MG IVP (07:59)
[2020-11-18] MEDS: pantoprazole DR 40 mg Tablet PO (08:00)
[2020-11-18] MEDS: remdesivir 100 MG in sodium chloride 0.9% (100 ml) 100 ML IV (08:00)
[2020-11-18] MEDS: albuterol 8 gm MDI 2 PUFF INHALATION (09:02)
[2020-11-18 11:35] LABS: Troponin 5 6HR 12.82 ng/L (0-10)
[2020-11-18 11:36] LABS: Troponin 5 6HR Delta -4.18 ng/L (0-12)
[2020-11-18 12:45] LABS: Add Urine Microscopic? YES; Bilirubin Urine 1+ (Negative); Blood Urine 3+ (Negative); Glucose Urine UA Norm (Normal); Ketones Urine Negative (Negative); Leukocyte Esterase Urine Negative (Negative); Nitrate Urine Negative (Negative); Protein Urine 1+ (Negative); Urine Appearance Clear (CLEAR); Urine Color Dark Yellow (Yellow); Urobilinogen Urine 4 mg/dL (Negative); pH Urine 7 (5-7)
[2020-11-18 12:46] LABS: Add Urine Culture? No; Bacteria Urine TRACE /hpf; RBC Urine 0-4 /hpf (0-2); Squamous Epithelial Cell Urine 0-4 /hpf (0-5); WBC Urine 0-4 /hpf (0-5)
--- NOTE | 2020-11-18 12:46 | PM.PN ---
Subjective Subjective: Interval history: Was seen and examined this morning, she was on 30 L 50% oxygen Was not experiencing any shortness of breath, son at the bedside Patient is not vaccinated Her symptoms started in the beginning of October and she tested positive on , she was given antibiotics on 11/04, return to the hospital for worsening of her symptoms. Vitals/I&O/Wt Last Vital Signs Temp 98.1 F 11/18/20 12:00 Pulse 54 L 11/18/20 12:00 Resp 16 11/18/20 12:00 BP 151/75 11/18/20 12:00 Pulse Ox 94 11/18/20 12:00 11/17/20 11/18/20 11/18/20 22:59 06:59 14:59 Intake Total 550 / 550 100 / 100 Output Total 0 / 0 500 / 500 Balance 550 / 550 -400 / -400 Weight last 48 hrs Weight 53.524 kg Physical Exam Narrative: EXAM NARRATIVE: Middle-age female On 30 L 50% FiO2 humidified high flow S1, S2 no murmur appreciated Right sided central line as per the patient it was placed in May by [facility] Bilateral breath sounds with rhonchi at the bases Soft abdomen No extremity no edema EOMI, PERRLA GCS 15 no neurological deficit Data : 11/18/20 04:34 11/17/20 22:28 Micro: Microbiology 11/18/20 04:34 Blood Culture - Preliminary Blood SPECIMEN COLLECTED 11/18/20 04:34 Blood Culture - Preliminary Blood SPECIMEN COLLECTED A&P Assessment and plan (1) Pneumonia due to COVID-19 virus: Status: Acute (2) AML (acute myeloblastic leukemia): Status: Acute (3) Acute hypokalemia: Status: Acute Additional A&P Information Acute hypoxic restaurant failure secondary to COVID-19 pneumonia Patient symptoms started in first week of October, tested positive on 11/03, received antibiotics on 11/04 and got admitted on 11/18 for shortness of breath currently on 30 L 50% humidified high flow Lungs are showing dense bilateral infiltrates, high risk for mortality and morbidity considering her underlying AML immunocompromise state Continue remdesivir and Decadron Not a candidate of interleukin-6 inhibitor because of immunocompromise state and thrombocytopenia Continue management in ICU Patient is full code discussed with her today in front of her son Inflammatory markers every 48 hours For her AML she follows up at [facility] and Dr. Bradshaw, I would continue her valacyclovir, doxycycline and posaconazole prophylactic regimen discontinue cefepime for now, procalcitonin unremarkable Acute hypokalemia: Potassium repleted Check magnesium level Chronic macrocytic anemia: Hemoglobin stable, she is hemodynamically stable, check B12 level Full code DVT prophylaxis contraindicated Cardiac diet Attestations Medical Necessity Statement*: Continue medical management for hypoxic respiratory failure due to COVID-19 Time Spent in Patient Care: 40mins Coding Level of Care Code Acute Director Pharmacovigilance for [facility] Diagnoses Pneumonia due to COVID-19 virus U07.1; J12.82 AML (acute myeloblastic leukemia) C92.00 Acute hypokalemia E87.6
[2020-11-18] MEDS: doxycycline 100 mg Tablet PO (17:54)
--- NOTE | 2020-11-18 21:58 | PC.NURSE ---
Patient was recieved earlier awake and alert on HHFONC 30L 50%. Nil distress noted. Nil complaint. Double lumen catheter to right chest wall capped and MELCHOR to LFA saline locked. MELCHOR flushes well, no blood return noted. Patient watching TV in bed. Son in attendance at bedside. Patient home medication was taken and placed in Pyxis, medications checked by second staff nurse, Marilee WELLS. Patient being monitored.
[2020-11-18] MEDS: ondansetron 2 mg/ML SDV 2 mL 4 MG IVP (22:59)
[2020-11-19] VITALS (115 sets, daily range): BP systolic 127–169; BP diastolic 55–76; PULSE 46–72; RESP 13–37; TEMP 36.4–37.2; O2SAT 84–99
[2020-11-19] MEDS: remdesivir 100 MG in sodium chloride 0.9% (100 ml) 100 ML IV (05:26)
[2020-11-19] MEDS: lisinopril 10 mg Tablet PO (05:26)
[2020-11-19] MEDS: potassium chloride ER 10 mEq Tablet PO (05:26)
[2020-11-19 05:50] LABS: Basophils % 0.2 %; Hematocrit 29.4 % (37.0-47.0); Hemoglobin 9.6 g/dL (11.5-15.3); Lymphocytes # 0.7 10^3/uL (0.8-4.8); Lymphocytes % 7.3 %; Mean Corpuscular HGB Conc 32.7 g/dL (30.0-36.0); Mean Corpuscular Hemoglobin 32.9 pg (28.0-34.0); Mean Corpuscular Volume 100.7 fL (81-99); Monocytes # 0.5 10^3/uL (0.2-0.9); Monocytes % 4.9 %; Neutrophils % 86.7 %; Nucleated Red Blood Cells % 0.2 %; Platelet Count 59 10^3/cmm (130-400); Red Blood Count 2.92 10^6/uL (4.1-5.3); Red Cell Distribution Width 17.3 % (12.1-15.1)
[2020-11-19 06:16] LABS: Mean Platelet Volume 12.5 fL (7.4-10.4)
[2020-11-19 06:34] LABS: C Reactive Protein 105.5 mg/L (0.0-4.9); Lactate (Lactic Acid level) 1.2 mmol/L (0.5-2.2)
[2020-11-19 06:37] LABS: Anion Gap 11.6 (5-19); Blood Urea Nitrogen 15 mg/dL (8-23); Calcium 8.7 mg/dL (8.5-10.5); Carbon Dioxide 31 mmol/L (22-29); Chloride 101 mmol/L (98-107); Creatinine Clr Calc Pharmacy 53.2202; Glomerular Filtration Rate 122.7 mL/min (90-130); Glucose 113 mg/dL (65-115); Magnesium 2.1 mg/dL (1.7-2.3); Osmolality Calculated 290 mOsm/kg (285-295); Potassium 4.6 mmol/L (3.5-5.1); Sodium 139 mmol/L (136-145)
--- NOTE | 2020-11-19 07:07 | PC.NURSE ---
Patient spent a fair shift. Remains on High flow O2 30L/49.9%. SOB when moved. V/S stable. Bath given. Remdesivir given. Son in attendance. Care continues.
--- NOTE | 2020-11-19 07:11 | PC.NURSE ---
No SCDs were on overnight at all.
[2020-11-19] MEDS: albuterol 8 gm MDI 2 PUFF INHALATION (08:30)
[2020-11-19] MEDS: doxycycline 100 mg Tablet PO ×2 (09:03→18:47)
[2020-11-19] MEDS: pantoprazole DR 40 mg Tablet PO (09:04)
[2020-11-19] MEDS: dexamethasone 4 mg/mL INJ 6 MG PO (09:04)
--- NOTE | 2020-11-19 11:46 | PM.PN ---
Subjective Subjective: Interval history: Patient was seen and examined this morning, today she is saturating above 92% on 40 L with 55% humidified high flow no overnight events, patient is endorsing extremely lethargic and fatigued with anorexia She has not worked with physical therapy yet CBC BMP unremarkable Vitals/I&O/Wt Last Vital Signs Temp 97.6 F 11/19/20 10:00 Pulse 60 11/19/20 10:26 Resp 21 H 11/19/20 10:26 BP 134/68 11/19/20 10:00 Pulse Ox 92 11/19/20 10:26 11/18/20 11/19/20 11/19/20 22:59 06:59 14:59 Intake Total 280 / 280 Output Total 700 / 1200 940 / 940 Balance -700 / -1100 -660 / -660 Weight last 48 hrs Weight 53.524 kg Physical Exam Narrative: EXAM NARRATIVE: Patient was sitting in her bed without any active discomfort saturating well on 4 L of 55% humidified high flow and at the bedside S1-S2 no murmur Clinically looks slightly dehydrated with flushed skin Room was warm as well Abdomen soft No acute respiratory distress however crepitation noted Lower extremity no edema Lethargic and fatigued EOMI, PERRLA Data : 11/19/20 05:25 11/19/20 05:25 Micro: Microbiology 11/18/20 04:34 Blood Culture - Preliminary Blood NEGATIVE TO DATE 11/18/20 04:34 Blood Culture - Preliminary Blood NEGATIVE TO DATE A&P Assessment and plan (1) Pneumonia due to COVID-19 virus: Status: Acute (2) Shortness of breath after COVID-19 vaccination: Status: Acute (3) Acute hypokalemia: Status: Acute (4) AML (acute myeloblastic leukemia): Status: Acute Additional A&P Information Acute hypoxic respiratory failure secondary to COVID-19 Increased O2 requirement to 40 L 55% humidified high flow Continue Decadron and remdesivir not a candidate of interleukin-6 inhibitor High risk for mortality and morbidity PT evaluation today AML: For prophylactic antifungal I have started valacyclovir doxycycline and posaconazole, would allow her home medications to be resumed Hypokalemia: Repleted Chronic anemia: Hemoglobin stable Full code Cardiac diet Attestations Medical Necessity Statement*: Continue medical management in ICU for now will transfer out of ICU tomorrow if O2 requirement is not increasing Time Spent in Patient Care: 30mins Coding Level of Care Code 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
[2020-11-20] VITALS (59 sets, daily range): BP systolic 124–156; BP diastolic 53–68; PULSE 44–73; RESP 11–32; TEMP 36.3–36.8; O2SAT 82–100
[2020-11-20 05:12] LABS: Basophils % 0.1 %; Hematocrit 28.8 % (37.0-47.0); Hemoglobin 9.5 g/dL (11.5-15.3); Mean Corpuscular Hemoglobin 33.1 pg (28.0-34.0); Mean Corpuscular Volume 100.3 fL (81-99); Monocytes # 0.7 10^3/uL (0.2-0.9); Neutrophils # 7.87 10^3/uL (1.8-7.7); Neutrophils % 81.9 %; Nucleated Red Blood Cells % 0.2 %; Platelet Count 49 10^3/cmm (130-400); Red Blood Count 2.87 10^6/uL (4.1-5.3); Red Cell Distribution Width 17.9 % (12.1-15.1); White Blood Count 9.6 10^3/uL (4.0-10.0)
[2020-11-20 05:37] LABS: C Reactive Protein 47.6 mg/L (0.0-4.9)
[2020-11-20 05:39] LABS: Lactate Dehydrogenase 447 U/L (135-214)
[2020-11-20 05:53] LABS: Vitamin B12 1058 pg/mL (232-1245)
--- NOTE | 2020-11-20 07:24 | PC.NURSE ---
Patient spent a fair shift. Alert and oriented X4. On HHF O2 with 45L and 59%. Nil distress noted. SB on monitor, asymptomatic. V/S stable. Bath given. All 0600 PO meds given, except Remdesivir IV. Patient arm band not scanning, multiple scanners used, same futile. Labs taken this am. Patient uses bedpan overnight. Remains stable. Care continues.
[2020-11-20] MEDS: lisinopril 10 mg Tablet PO (07:32)
[2020-11-20] MEDS: POSACONAZOLE 100 MG 200 EACH PO (07:33)
[2020-11-20] MEDS: potassium chloride ER 10 mEq Tablet PO (07:34)
--- NOTE | 2020-11-20 07:34 | PC.NURSE ---
Pharmacy was contacted re Remdesivir medication unavailabe, not seen in fridge, as per Pharmacist, he will take same to the unit when he is coming up. Still awaiting med, day shift nurse was informed of same.
[2020-11-20] MEDS: remdesivir 100 MG in sodium chloride 0.9% (100 ml) 100 ML IV (08:14)
[2020-11-20] MEDS: doxycycline 100 mg Tablet PO ×2 (08:17→17:15)
[2020-11-20] MEDS: dexamethasone 4 mg/mL INJ 6 MG PO (08:17)
[2020-11-20] MEDS: pantoprazole DR 40 mg Tablet PO (08:17)
[2020-11-20] MEDS: albuterol 8 gm MDI 2 PUFF INHALATION ×2 (09:13→21:35)
--- NOTE | 2020-11-20 14:09 | PM.PN ---
Subjective Subjective: Interval history: Patient was seen and examined this morning in ICU, she removed to [facility] today Currently on high flow 55% and 45 L No overnight events, she is to work with physical therapy today Vitals/I&O/Wt Last Vital Signs Temp 97.6 F 11/20/20 12:00 Pulse 60 11/20/20 12:00 Resp 17 11/20/20 12:00 BP 137/66 11/20/20 12:00 Pulse Ox 93 11/20/20 12:00 11/19/20 11/20/20 11/20/20 22:59 06:59 14:59 Intake Total 380 / 940 620 / 620 Output Total 400 / 1890 320 / 2210 Balance -20 / -950 -320 / -1270 620 / 620 Physical Exam Narrative: EXAM NARRATIVE: She was sitting comfortably in her bed Saturating well on humidified high flow 55% and 45 L Bibasilar crackles and crepitation noted on inspiratory and expiratory phases Abdomen soft bowel sound present Lower extremity no edema EOMI, PERRLA Appropriate mood and affect No chest pain S1-S2 Skin flushed Data : 11/20/20 04:30 11/19/20 05:25 A&P Assessment and plan (1) Pneumonia due to COVID-19 virus: Status: Acute (2) Shortness of breath after COVID-19 vaccination: Status: Acute (3) AML (acute myeloblastic leukemia): Status: Acute Additional A&P Information Acute hypoxia secondary to COVID-19 pneumonia Bilateral dense infiltrate on CT chest evident Currently oxygen requirement is 45 L 55% which is slightly gone up from yesterday Inflammatory markers trending down no fever or signs of leukocytosis Not a candidate of interleukin-6 inhibitor because of thrombocytopenia Transfer out of ICU to [facility] To work with physical therapy today Finished remdesivir and Decadron regimen AML: I have resumed her antifungal antiviral and antibiotic which she takes prophylactically Hypokalemia: Repleted Chronic anemia hemoglobin stable Thrombocytopenia: Stable Full code Cardiac diet Attestations Medical Necessity Statement*: Transfer out of ICU to [facility] Time Spent in Patient Care: 16 - 35 minutes Coding Level of Care Code 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
--- NOTE | 2020-11-20 17:14 | PC.NUTR ---
Nutrition assessment triggered due to BMI < 23 for age > 65 years, as well as dietitian consult per Andrea. Recommend Ensure with meals to provide additional kcal/protein and to encourage po intakes of meals/supplement to optimize nutrition. Also recommend obtaining current weight to clarify possible significant wt loss. See full RD assessment for further details.
[2020-11-21] VITALS (16 sets, daily range): BP systolic 116–181; BP diastolic 62–72; PULSE 53–87; RESP 14–36; TEMP 36.5–37; O2SAT 86–98
[2020-11-21] MEDS: albuterol 8 gm MDI 2 PUFF INHALATION ×3 (03:45→19:30)
[2020-11-21 06:14] LABS: Basophils % 0.1 %; Hematocrit 28.7 % (37.0-47.0); Hemoglobin 9.3 g/dL (11.5-15.3); Lymphocytes # 0.8 10^3/uL (0.8-4.8); Lymphocytes % 9.1 %; Mean Corpuscular HGB Conc 32.4 g/dL (30.0-36.0); Mean Corpuscular Hemoglobin 33.3 pg (28.0-34.0); Mean Corpuscular Volume 102.9 fL (81-99); Monocytes # 0.7 10^3/uL (0.2-0.9); Monocytes % 8.2 %; Neutrophils # 7.17 10^3/uL (1.8-7.7); Neutrophils % 81.7 %; Nucleated Red Blood Cells % 0.5 %; Platelet Count 59 10^3/cmm (130-400); Red Blood Count 2.79 10^6/uL (4.1-5.3); Red Cell Distribution Width 18.5 % (12.1-15.1); White Blood Count 8.8 10^3/uL (4.0-10.0)
[2020-11-21] MEDS: lisinopril 10 mg Tablet PO (06:21)
[2020-11-21] MEDS: potassium chloride ER 10 mEq Tablet PO (06:21)
[2020-11-21] MEDS: POSACONAZOLE 100 MG 200 EACH PO (06:31)
[2020-11-21] MEDS: remdesivir 100 MG in sodium chloride 0.9% (100 ml) 100 ML IV (06:31)
[2020-11-21 06:49] LABS: C Reactive Protein 27.9 mg/L (0.0-4.9)
--- NOTE | 2020-11-21 07:50 | PC.NURSE ---
Nurse notified of high blood pressure.
[2020-11-21] MEDS: doxycycline 100 mg Tablet PO ×2 (08:48→17:06)
[2020-11-21] MEDS: dexamethasone 4 mg/mL INJ 6 MG PO (08:48)
[2020-11-21] MEDS: pantoprazole DR 40 mg Tablet PO (08:48)
--- NOTE | 2020-11-21 10:54 | PC.NURSE ---
Notified Dr Santana that patient's blood pressure was 181/72 at 0749, her blood pressure is now 163/71. she was given Lisinopril at 0621 this morning.
--- NOTE | 2020-11-21 10:58 | PC.SOCIAL ---
Pg 2 IMM Explained to pt, via phone, on Pg 2 IMM. No questions voiced. Provided pt care nurse a copy to give to pt. Initialed, dated, & timed a copy & placed in chart.
--- NOTE | 2020-11-21 12:39 | PC.NURSE ---
notified Dr Santana that patient wants you to call her niece Lisa at [phone] and update her on patient's condition.
--- NOTE | 2020-11-21 12:44 | PC.NURSE ---
called patient's son Gilmar [phone] and updated him on patient's condition.
--- NOTE | 2020-11-21 15:17 | P.PN_ITS ---
Subjective Subjective: Interval history: Patient was seen and examined on medical floor she was requiring 70% and 50 L of oxygen her oxygen requirement has been gradually getting worse on ambulation she requires no percent FiO2, able to work with physical therapy Afebrile thrombocytopenia stable Vitals/I&O/Wt Last Vital Signs Temp 98.6 F 11/21/20 12:00 Pulse 77 11/21/20 15:00 Resp 17 11/21/20 15:00 BP 163/70 11/21/20 12:00 Pulse Ox 98 11/21/20 15:00 11/21/20 11/21/20 11/21/20 06:59 14:59 22:59 Intake Total 480 / 1340 340 / 340 Output Total 600 / 600 Balance 480 / 840 -260 / -260 Physical Exam Narrative: EXAM NARRATIVE: Saturating well on 70% 50 L high flow oxygen Required 100% on ambulation S1, S2 no murmur appreciated Bilateral breath sounds with crepitation on inspiratory and expiratory phases Abdomen soft Legs no edema Awake alert oriented x3 GCS 15 Appropriate mood and affect Data : 11/21/20 05:11 11/19/20 05:25 A&P Assessment and plan (1) Pneumonia due to COVID-19 virus: Status: Acute (2) AML (acute myeloblastic leukemia): Status: Acute (3) Pancytopenia: Status: Acute Additional A&P Information Hypoxic respiratory failure secondary to COVID-19 pneumonia Today oxygen requirement has gone up 70% 50 L on humidified high flow however patient is not endorsing any active chest pain or shortness of breath She requires 100% on ambulation Patient would like to monitor at least 1 more day before making decision regarding her transfer to [facility], she is not eager to be transferred from [place] at this point Afebrile Pancytopenia stable for now AML continue prophylactic measures Full code Not a DVT candidate because of pancytopenia Cardiac diet Encourage PT Attestations Medical Necessity Statement*: Continue medical management for hypoxia secondary to COVID-19 pneumonia Time Spent in Patient Care: less than 15 minutes Coding Level of Care Code Acute Celebrity Manager for [facility] Fwd Diagnoses Pneumonia due to COVID-19 virus U07.1; J12.82 AML (acute myeloblastic leukemia) C92.00 Pancytopenia D61.818
[2020-11-22] VITALS (17 sets, daily range): BP systolic 148–176; BP diastolic 64–77; PULSE 51–81; RESP 15–26; TEMP 36.4–36.7; O2SAT 88–98
[2020-11-22] MEDS: albuterol 8 gm MDI 2 PUFF INHALATION ×4 (00:35→16:54)
[2020-11-22] MEDS: remdesivir 100 MG in sodium chloride 0.9% (100 ml) 100 ML IV (05:43)
[2020-11-22] MEDS: POSACONAZOLE 100 MG 200 EACH PO (05:43)
[2020-11-22] MEDS: potassium chloride ER 10 mEq Tablet PO (05:43)
[2020-11-22] MEDS: lisinopril 10 mg Tablet PO (05:43)
[2020-11-22 06:24] LABS: C Reactive Protein 28.4 mg/L (0.0-4.9)
[2020-11-22] MEDS: doxycycline 100 mg Tablet PO ×2 (08:30→17:15)
[2020-11-22] MEDS: pantoprazole DR 40 mg Tablet PO (08:30)
[2020-11-22] MEDS: dexamethasone 4 mg/mL INJ 6 MG PO (08:46)
--- NOTE | 2020-11-22 16:37 | P.PN_ITS ---
Subjective Subjective: Interval history: Patient was seen and examined this morning, she was on humidified high flow 55 L 65%, she has worked with physical therapist yesterday, no active nausea, vomiting diarrhea or chest pain Talked with her niece as well number is [phone] Vitals/I&O/Wt Last Vital Signs Temp 97.5 F L 11/22/20 16:00 Pulse 55 L 11/22/20 16:00 Resp 18 11/22/20 16:00 BP 161/77 11/22/20 16:00 Pulse Ox 98 11/22/20 16:00 11/22/20 11/22/20 11/22/20 06:59 14:59 22:59 Intake Total 340 / 340 Output Total 100 / 900 1300 / 1300 Balance -100 / -560 -960 / -960 Physical Exam Narrative: EXAM NARRATIVE: Patient was seen and examined at the bedside Saturating well on humidified high flow 55 L 65% Bilateral rhonchi with crepitations noted S1, S2 no signs of heart failure Clinically looks slightly dehydrated Abdomen soft No extremity no edema Appropriate mood Lethargy and fatigue positive Data : 11/21/20 05:11 11/19/20 05:25 A&P Assessment and plan (1) Pneumonia due to COVID-19 virus: Status: Acute (2) Acute hypokalemia: Status: Acute (3) AML (acute myeloblastic leukemia): Status: Acute (4) Pancytopenia: Status: Acute Additional A&P Information Hypoxia secondary to COVID-19 Currently saturating well on 55 L 65% humidified high flow aspiratory therapist to wean down her O2, CRP trending down, no fever no signs of sepsis, To work with physical therapy, because of her fatigue and lethargy she has not been worked with PT to full of her capacity Updated family AML: Continue prophylactic antimicrobials Pancytopenia: Stable, she can have lab holiday tomorrow Cardiac diet DVT prophylaxis contraindicated secondary to thrombocytopenia Full code Attestations Medical Necessity Statement*: Currently saturating well on humidified high flow O2 to be weaned down continue current medical management needing hospitalization for above-mentioned reason Time Spent in Patient Care: less than 15 minutes Coding Level of Care Code Acute Accounts Receivable Assistant for [facility] Fwd Diagnoses Pneumonia due to COVID-19 virus U07.1; J12.82 Acute hypokalemia E87.6 AML (acute myeloblastic leukemia) C92.00 Pancytopenia D61.818
[2020-11-23] VITALS (11 sets, daily range): BP systolic 136–179; BP diastolic 60–72; PULSE 50–75; RESP 15–24; TEMP 36.6–36.9; O2SAT 85–94
[2020-11-23] MEDS: lisinopril 10 mg Tablet PO (06:19)
[2020-11-23] MEDS: potassium chloride ER 10 mEq Tablet PO (06:19)
[2020-11-23] MEDS: albuterol 8 gm MDI 2 PUFF INHALATION (08:07)
[2020-11-23 08:14] LABS: Anion Gap 11.1 (5-19); Blood Urea Nitrogen 15 mg/dL (8-23); Carbon Dioxide 28 mmol/L (22-29); Chloride 102 mmol/L (98-107); Glomerular Filtration Rate 158.7 mL/min (90-130); Glucose 89 mg/dL (65-115); Osmolality Calculated 284 mOsm/kg (285-295); Potassium 4.1 mmol/L (3.5-5.1); Sodium 137 mmol/L (136-145)
[2020-11-23 08:15] LABS: Creatinine Clr Calc Pharmacy 53.2202
[2020-11-23] MEDS: dexamethasone 4 mg/mL INJ 6 MG PO (08:47)
--- NOTE | 2020-11-23 11:20 | PC.SOCIAL ---
IMM UPDATE Gave patient IMM update. She verbalized understanding. 11/23/20 @ 0910. Initialed, dated, timed and placed in chart.
[2020-11-23] MEDS: pantoprazole DR 40 mg Tablet PO (11:26)
[2020-11-23] MEDS: doxycycline 100 mg Tablet PO ×2 (11:26→18:51)
--- NOTE | 2020-11-23 13:18 | PM.PN ---
Subjective Subjective: Interval history: Patient was seen and examined this morning, she was onHumidified high flow 30 L, 40% FiO2 encourage proning Vitals/I&O/Wt Last Vital Signs Temp 97.9 F 11/23/20 11:48 Pulse 75 11/23/20 12:04 Resp 24 H 11/23/20 12:04 BP 163/69 11/23/20 11:48 Pulse Ox 89 L 11/23/20 12:04 11/22/20 11/23/20 11/23/20 22:59 06:59 14:59 Intake Total 120 / 120 Output Total 0 / 1300 0 / 1300 1400 / 1400 Balance 0 / -960 0 / -960 -1280 / -1280 Physical Exam Narrative: EXAM NARRATIVE: Patient was laying in her right lateral position Saturating well on humidified high flow Bilateral rhonchi with crepitations noted S1, S2 no signs of heart failure Clinically looks slightly dehydrated Abdomen soft No extremity no edema Appropriate mood Mood and energy better today Data : 11/21/20 05:11 11/23/20 05:51 Micro: Microbiology 11/18/20 04:34 Blood Culture - Final Blood NO GROWTH AFTER 5 DAYS 11/18/20 04:34 Blood Culture - Final Blood NO GROWTH AFTER 5 DAYS A&P Assessment and plan (1) Shortness of breath after COVID-19 vaccination: Status: Acute (2) Pneumonia due to COVID-19 virus: Status: Acute (3) AML (acute myeloblastic leukemia): Status: Acute Additional A&P Information Hypoxia secondary to COVID-19: Wean off O2 today humidified high flow 30 L, 35 to 40% FiO2 encourage proning, work with physical therapy on daily basis, Ventolin, bedside spirometry AML no acute exacerbation continue antimicrobials Pancytopenia: Request labs tomorrow Full code DVT prophylaxis contraindicated Attestations Medical Necessity Statement*: Continue medical management currently on humidified high flow Time Spent in Patient Care: less than 15 minutes Coding Level of Care Code Acute 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
[2020-11-24] VITALS (11 sets, daily range): BP systolic 120–159; BP diastolic 60–79; PULSE 51–77; RESP 16–89; TEMP 36.7–37.2; O2SAT 88–96
[2020-11-24] MEDS: lisinopril 10 mg Tablet PO (06:52)
[2020-11-24] MEDS: potassium chloride ER 10 mEq Tablet PO (06:52)
[2020-11-24] MEDS: POSACONAZOLE 100 MG 200 EACH PO (06:53)
[2020-11-24 07:26] LABS: Basophils % 0.1 %; Hematocrit 27.2 % (37.0-47.0); Hemoglobin 8.8 g/dL (11.5-15.3); Lymphocytes % 13.2 %; Mean Corpuscular HGB Conc 32.4 g/dL (30.0-36.0); Mean Corpuscular Hemoglobin 32.7 pg (28.0-34.0); Mean Corpuscular Volume 101.1 fL (81-99); Monocytes # 0.7 10^3/uL (0.2-0.9); Monocytes % 9.4 %; Neutrophils # 5.66 10^3/uL (1.8-7.7); Neutrophils % 74.7 %; Nucleated Red Blood Cells % 0.5 %; Platelet Count 42 10^3/cmm (130-400); Red Blood Count 2.69 10^6/uL (4.1-5.3); Red Cell Distribution Width 19.3 % (12.1-15.1); White Blood Count 7.6 10^3/uL (4.0-10.0)
[2020-11-24 07:35] LABS: Mean Platelet Volume 10.5 fL (7.4-10.4)
[2020-11-24 07:50] LABS: Anion Gap 11.3 (5-19); Blood Urea Nitrogen 15 mg/dL (8-23); C Reactive Protein 31.1 mg/L (0.0-4.9); Calcium 8.1 mg/dL (8.5-10.5); Carbon Dioxide 26 mmol/L (22-29); Chloride 103 mmol/L (98-107); Glomerular Filtration Rate 158.7 mL/min (90-130); Glucose 75 mg/dL (65-115); Osmolality Calculated 282 mOsm/kg (285-295); Potassium 4.3 mmol/L (3.5-5.1); Sodium 136 mmol/L (136-145)
[2020-11-24 07:51] LABS: Creatinine Clr Calc Pharmacy 53.2202
[2020-11-24] MEDS: albuterol 8 gm MDI 2 PUFF INHALATION ×3 (09:00→23:50)
[2020-11-24] MEDS: dexamethasone 4 mg/mL INJ 6 MG PO (10:14)
[2020-11-24] MEDS: pantoprazole DR 40 mg Tablet PO (10:15)
[2020-11-24] MEDS: doxycycline 100 mg Tablet PO ×2 (10:15→17:52)
--- NOTE | 2020-11-24 14:39 | PM.PN ---
Subjective Subjective: Interval history: Patient was seen and examined, feeling improvement in her energy, CRP 31 today has been afebrile no active bleeding CBC BMP unremarkable She has been able to go to the bathroom independently however gets tired and lethargic easily Vitals/I&O/Wt Last Vital Signs Temp 98.4 F 11/24/20 11:16 Pulse 53 L 11/24/20 12:09 Resp 17 11/24/20 12:09 BP 127/79 11/24/20 11:16 Pulse Ox 88 L 11/24/20 12:09 11/23/20 11/24/20 11/24/20 22:59 06:59 14:59 Intake Total 240 / 600 300 / 900 720 / 720 Output Total 100 / 1500 475 / 1975 Balance 140 / -900 -175 / -1075 720 / 720 Physical Exam Narrative: EXAM NARRATIVE: Patient was laying supine when entered the room was saturating well on 50% 35 L No overnight events Patient is feeling better in terms of her energy S1, S2 sinus rhythm Clinically slight signs of dehydration Appropriate mood and affect Bilateral breath sounds with mild rhonchi at the bases Abdomen soft Lower extremity no edema Data : 11/24/20 06:55 11/24/20 06:55 A&P Assessment and plan (1) Pneumonia due to COVID-19 virus: Status: Acute (2) Shortness of breath after COVID-19 vaccination: Status: Acute (3) AML (acute myeloblastic leukemia): Status: Acute Additional A&P Information Pneumonia secondary to COVID-19 with persistent hypoxia currently on 50% 35 L heated high flow CRP trending down In terms of her energy and mood she is showing signs of improvement Afebrile Pancytopenia: White count improved however thrombocytopenia anemia stable AML: Continue prophylactic regimen Once patient is transition to nasal cannula she will be transferred to to home with home health services Anorexia improving as well Inflammatory markers trending down Full code Regular diet DVT prophylaxis contraindicated Guarded prognosis due to immunocompromised state Attestations Medical Necessity Statement*: Anticipating discharge to home with home health service once she is transition to nasal cannula however carries guarded prognosis due to immunocompromise state Time Spent in Patient Care: less than 15 minutes Coding Level of Care Code Acute 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
[2020-11-25] VITALS (10 sets, daily range): BP systolic 120–183; BP diastolic 58–90; PULSE 52–84; RESP 16–30; TEMP 36.5–37.2; O2SAT 90–100
[2020-11-25] MEDS: LISINOPRIL 10 MG TABLET 10 EACH PO (01:24)
--- NOTE | 2020-11-25 01:33 | PC.NURSE ---
Blood Pressure [facility] blood pressure was 177/73. Physician notified, see physicians notification. Lisinopril scheduled for 6:00 was given early per physicians orders.
[2020-11-25] MEDS: potassium chloride ER 10 mEq Tablet 10 EACH PO (05:10)
[2020-11-25] MEDS: POSACONAZOLE 100 MG 200 EACH PO (05:10)
[2020-11-25 09:04] LABS: C Reactive Protein 19.6 mg/L (0.0-4.9); Lactate Dehydrogenase 437 U/L (135-214)
[2020-11-25] MEDS: albuterol 8 gm MDI 2 PUFF INHALATION (09:23)
[2020-11-25] MEDS: doxycycline 100 mg Tablet PO ×2 (10:05→19:05)
[2020-11-25] MEDS: dexamethasone 4 mg/mL INJ 6 MG PO (10:05)
[2020-11-25] MEDS: pantoprazole DR 40 mg Tablet PO (10:05)
--- NOTE | 2020-11-25 12:29 | PC.SOCIAL ---
IMM updated IMM updated with patient via telephone. Verbalized an understanding. Initialed, dated, timed, and placed in chart.
--- NOTE | 2020-11-25 13:45 | P.PN_ITS ---
Subjective Subjective: Interval history: She was seen in Covid unit, she is endorsing feeling better able to get up and use bedside commode, aspect retractors to bring her oxygen down HHF 40% 35 L Vitals/I&O/Wt Last Vital Signs Temp 99.0 F 11/25/20 08:00 Pulse 67 11/25/20 12:12 Resp 22 H 11/25/20 12:12 BP 129/66 11/25/20 08:00 Pulse Ox 90 11/25/20 12:12 11/24/20 11/25/20 11/25/20 22:59 06:59 14:59 Intake Total 360 / 1080 180 / 180 Output Total 300 / 300 Balance 360 / 1080 -300 / 780 180 / 180 Physical Exam Narrative: EXAM NARRATIVE: Sitting comfortably in her bed Humidified high flow 35 L 40% S1, S2 no acute respite distress No chest pain Abdomen soft Lower extremity no edema No skin rash or signs of cellulitis EOMI, PERRLA Data : 11/24/20 06:55 11/24/20 06:55 A&P Assessment and plan (1) Pneumonia due to COVID-19 virus: Status: Acute (2) Shortness of breath after COVID-19 vaccination: Status: Acute (3) Acute hypokalemia: Status: Acute (4) AML (acute myeloblastic leukemia): Status: Acute (5) Pancytopenia: Status: Acute Additional A&P Information Hypoxic respiratory failure due to COVID-19 pneumonia Wean off oxygen currently she is saturating well on humidified high flow 35 L 40% Requested respiratory therapist to wean her down to nasal cannula 15 L NC if she is able to ambulate and work with physical therapy today Status post remdesivir and Decadron regimen I would not continue steroids for prolonged period of time to avoid superimposed infection She is making good clinical progress with PT plan to discharge home once her oxygen requirement is within acceptable range, if she is not able to make good progress over the weekend Pancytopenia: Stable Hyperkalemia: Improved Full code DVT prophylaxis contraindicated due to thrombocytopenia Attestations Medical Necessity Statement*: Plan to discharge her home once her oxygen is within acceptable range on nasal cannula Time Spent in Patient Care: less than 15 minutes Coding Level of Care Code 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
[2020-11-26] VITALS (8 sets, daily range): BP systolic 113–177; BP diastolic 51–92; PULSE 55–66; RESP 17–20; TEMP 36.7–36.8; O2SAT 83–98
[2020-11-26] MEDS: potassium chloride ER 10 mEq Tablet 10 EACH PO (06:44)
[2020-11-26] MEDS: POSACONAZOLE 100 MG 200 EACH PO (06:44)
[2020-11-26] MEDS: LISINOPRIL 10 MG TABLET 10 EACH PO (06:44)
--- NOTE | 2020-11-26 08:16 | PC.NURSE ---
Patient spent a fair shift, nil distress noted. Remains on high flow nasal cannula. Remains stable. Care continues.
[2020-11-26] MEDS: dexamethasone 4 mg Tablet 6 MG PO (09:14)
[2020-11-26] MEDS: doxycycline 100 mg Tablet PO (09:15)
[2020-11-26] MEDS: pantoprazole DR 40 mg Tablet PO (09:15)
[2020-11-26] MEDS: albuterol 8 gm MDI 2 PUFF INHALATION (10:13)
--- NOTE | 2020-11-26 11:39 | P.DS_ITS ---
Discharge Providers Date of Admission: 11/18/20 00:53 Date of Discharge: November 26, 2020 Attending Provider at Admission: Riana Gastelum Attending Provider at Discharge: Apolinar Santana MD Primary Care Provider: Mercy Rosales MD Diagnoses at Discharge Discharge Diagnosis (1) Pneumonia due to COVID-19 virus: Status: Acute (2) Shortness of breath after COVID-19 vaccination: Status: Acute (3) Acute hypokalemia: Status: Acute (4) AML (acute myeloblastic leukemia): Status: Acute Permanent problem details: Diagnosed in 2020 and she is currently undergoing chemotherapy at [facility]--this is being managed by the oncology doctors in [place] as well (5) Pancytopenia: Status: Acute Reason for Visit Reason for Visit: sob,weakness and covid + Hospital Course Hospital Course History of Present Illness 70-year-old female with past medical history of acute myeloid leukemia and recent diagnosis of COVID-19 who presented to the hospital with progressively worsening respiratory distress. This was associated with subjective fever, chills, increasing weakness. Upon arrival to emergency room patient's laboratory workup showed WBC 7.4, hemoglobin 9.4, hematocrit of 28.5 and a platelet count of 51. D-dimer 02.74. INR 1.23. Arterial blood gases showed pH 7.51, pCO2 43, PO2 of 67.2 and bicarb of 33.9. Sodium 134, potassium 2.9, chloride 93, bicarb 31, BUN 11 and creatinine of 0.6. AST of 58, ALT of 39 and alkaline phosphatase of 93 proBNP of 83 procalcitonin of 0.30. CTA chest showed patchy bilateral ground-glass opacities some consolidation compatible of bilateral interstitial pneumonia. In ER patient was given decadron 10 mg IV x 1. Upon admission patient was started on Cefepime and HFNC Hospital course 70-year-old female who was admitted for management of worsening hypoxia related to COVID-19 infection, bilateral pulmonary groundglass opacities were noticed, patient was kept on humidified high flow which was gradually titrated down, hospitalization was notable for a slower recovery however no signs of superimposed infection or PE. Patient eventually started feeling better and worked with physical therapy, her anorexia improved and she was eating and ambulating independently. On the day of discharge she is saturating 95 to 97% on 4 to 5 L of nasal cannula. She stayed afebrile, leukopenia improved hemoglobin stayed stable between 8.5-9. She has thrombocytopenia platelet count stayed above 40,000. Initially she required broad-spectrum antibiotics which were deescalated. During her hospitalization she was getting her prophylactic doxycycline, posaconazole and acyclovir. She is planning to get vaccination, I recommended after 90 days of her Covid infection and encouraged her son to get vaccine as well. Home O2 eval, she will be discharged home with home O2 4 to 5 L. CRP on 11/25 19.6 white count 7.6 hemoglobin 8.8 platelets 42. Her cultures were sterile. Physical Exam Narrative: EXAM NARRATIVE: Sitting comfortably in her bed Saturating well 95% on 4 L nasal cannula S1, S2 no acute respite distress No chest pain Abdomen soft Lower extremity no edema No skin rash or signs of cellulitis EOMI, PERRLA Discharge Data Data Completed and Pending: Completed Studies During Hospitalization Category Date Time Status CT angio chest PE protcl 25910 Stat Cat Scan 11/17/20 23:55 Completed XR chest 1V carli ble 30650 Stat Exams 11/17/20 21:50 Completed Vitals: Last Vital Signs Temp 98.3 F 11/26/20 08:00 Pulse 64 11/26/20 10:15 Resp 17 11/26/20 10:13 BP 177/82 11/26/20 08:00 Pulse Ox 92 11/26/20 10:13 Discharge Plan Discharge Patient Disposition: Home Condition: Stable Prescriptions: Continued escitalopram oxalate [Lexapro] 20 mg tablet 40 mg PO QAM RF: 0 ondansetron 8 mg Tablet,Disintegrating 8 mg PO Q6H PRN (Reason: Nausea And Vomiting) RF: 0 venetoclax 100 mg Tablet See Rx Instructions .ROUTE .COMPLEX RF: 0 acyclovir 400 mg Tablet 400 mg PO TID@,14,20 RF: 0 posaconazole 100 mg Tablet,Delayed Release (Dr/Ec) 200 mg PO QAM RF: 0 benzonatate 200 mg capsule 200 mg PO TID PRN (Reason: Cough) RF: 0 potassium chloride 10 mEq tablet extended release 10 meq PO QAM RF: 0 lisinopril 10 mg tablet 10 mg PO QAM RF: 0 docusate sodium 100 mg Capsule 100 mg PO QPM PRN (Reason: Constipation) RF: 0 Acid Binder Sorter Complete (famot) 10800-165 mg Tablet,Chewable 1 tab PO QPM PRN (Reason: Heartburn) RF: 0 melatonin 5 mg Tablet 5 mg PO BEDTIME PRN (Reason: Sleep) RF: 0 tramadol 50 mg tablet 50 - 100 mg PO BID PRN (Reason: Pain) RF: 0 doxycycline monohydrate 100 mg capsule 100 mg PO BID RF: 0 Discharge Orders: Discharge Order (Routine); Ordered 11/26/20 Ordered By: Apolinar Santana Referrals: Mercy Rosales MD [Primary Care Provider] - Discharge Diet: Advance as tolerated Discharge Activity: Resume usual activity Patient Instructions: Opioid Safety Discharge Attestations Time Spent in Discharge Care*: less than 30 min Quality Metrics Clinical Quality Measures During this hospital stay, did patient experience: None Coding Level of Care Code Acute Chg FW DC note Diagnoses Pneumonia due to COVID-19 virus U07.1; J12.82 Shortness of breath after COVID-19 vaccination R06.02; T50.B95A Acute hypokalemia E87.6 AML (acute myeloblastic leukemia) C92.00 Pancytopenia D61.818
--- NOTE | 2020-11-28 14:02 | PC.SOCIAL ---
1400 discharge follow up completed via telephone. pt states she is feeling great. follow up appointment date and time given. 12-01-20 at 0930 with Ciro Ceron NP. They will schedule next visit with Dr. Rosales. Patient is using home o2 at 5L. No new meds were prescribed at discharge. patient denies questions about current medications.
== END 2020-11-26 19:48 | disposition home or self-care (01) | DRG 177 ==
LOC: ER 23:58 → ICU 11-18 00:53 → MEDSURG 11-20 11:53 → MS 2A 11-23 16:39
PROVIDERS: Admitting Provider Hospitalist; Emergency Provider Emergency Medicine; PCP Internal Medicine; Visit Provider Internal Medicine
DX: U07.1 COVID-19 (principal); J12.82 Pneumonia due to coronavirus disease 2019; J96.01 Acute respiratory failure with hypoxia; C92.00 Acute myeloblastic leukemia, not having achieved remission; D61.818 Other pancytopenia; Z79.899 Other long term (current) drug therapy; F32.9 Major depressive disorder, single episode, unspecified; L90.0 Lichen sclerosus et atrophicus; E87.6 Hypokalemia; D69.6 Thrombocytopenia, unspecified
CPT/HCPCS: 36415; 36600; 71045; 71275; 80048; 80051; 80053; 81001; 82330; 82607; 82728; 82805; 83605; 83615; 83735; 83880; 84145; 84484; 85025; 85378; 85610; 85730; 86140; 87040; 93005; 94640; 94762; 96361; 96372; 96374; 96375; 97110; 97116; 97161; 97530; 99285; J0692; J1100; J1650; J2405; J3535; J7040; J8540; Q9967

== ENCOUNTER 2020-12-22 05:33 | Outpatient (RCR) | payer MEDICARE, SELFPAY ==
[2020-12-08 15:46] LABS: Basophils % 0.2 %; Eosinophils # 0.1 10^3/uL (0.0-0.8); Eosinophils % 1.6 %; Hematocrit 24.4 % (37.0-47.0); Hemoglobin 7.7 g/dL (11.5-15.3); Lymphocytes # 0.9 10^3/uL (0.8-4.8); Lymphocytes % 17.6 %; Mean Corpuscular HGB Conc 31.6 g/dL (30.0-36.0); Mean Corpuscular Hemoglobin 34.4 pg (28.0-34.0); Mean Corpuscular Volume 108.9 fL (81-99); Monocytes # 0.6 10^3/uL (0.2-0.9); Monocytes % 12.4 %; Neutrophils # 3.36 10^3/uL (1.8-7.7); Neutrophils % 67.2 %; Nucleated Red Blood Cells % 0.4 %; Platelet Count 33 10^3/cmm (130-400); Red Blood Count 2.24 10^6/uL (4.1-5.3); Red Cell Distribution Width 20.1 % (12.1-15.1)
[2020-12-08 16:17] LABS: Alanine Aminotransferase 12 U/L (0-33); Albumin Level 3.2 g/dL (3.5-5.2); Alkaline Phosphatase 85 IU/L (35-105); Anion Gap 11.8 (5-19); Aspartate Amino Transferase 17 U/L (0-32); Blood Urea Nitrogen 9 mg/dL (8-23); Calcium 8.4 mg/dL (8.5-10.5); Carbon Dioxide 27 mmol/L (22-29); Chloride 103 mmol/L (98-107); Globulin 2.9 g/dL (1.3-4.6); Glomerular Filtration Rate 122.7 mL/min (90-130); Glucose 111 mg/dL (65-115); Lactate Dehydrogenase 234 U/L (135-214); Osmolality Calculated 285 mOsm/kg (285-295); Potassium 3.8 mmol/L (3.5-5.1); Sodium 138 mmol/L (136-145); Total Bilirubin 0.3 mg/dL (0.15-1.2); Total Protein 6.1 g/dL (6.6-8.7)
[2020-12-09 09:00] VITALS: BP 172/79; PULSE 59; RESP 18; TEMP 36.9; O2SAT 98
[2020-12-09 09:15] VITALS: BP 185/74; PULSE 58; RESP 18; TEMP 36.9; O2SAT 98
[2020-12-09] MEDS: acetaminophen 325 mg Tablet 650 MG PO (09:15)
[2020-12-09] MEDS: sodium chloride 0.9% 250 ML 999 ML IV (09:15)
[2020-12-09] MEDS: diphenhydrAMINE 25 mg Capsule PO (09:15)
[2020-12-09 09:45] VITALS: BP 179/74; PULSE 57; RESP 18; TEMP 36.6; O2SAT 98
[2020-12-09 10:15] VITALS: BP 184/73; PULSE 57; RESP 18; TEMP 36.6; O2SAT 98
[2020-12-09] MEDS: FUROsemide 10 mg/mL SDV 2mL 20 MG IV (10:30)
[2020-12-13 12:53] LABS: Basophils % 0.4 %; Eosinophils # 0.1 10^3/uL (0.0-0.8); Hematocrit 33.8 % (37.0-47.0); Hemoglobin 10.6 g/dL (11.5-15.3); Lymphocytes # 1.2 10^3/uL (0.8-4.8); Lymphocytes % 21.7 %; Mean Corpuscular HGB Conc 31.4 g/dL (30.0-36.0); Mean Corpuscular Hemoglobin 31.5 pg (28.0-34.0); Mean Corpuscular Volume 100.3 fl (81-99); Monocytes # 0.7 10^3/uL (0.2-0.9); Monocytes % 12.8 %; Neutrophils # 3.37 10^3/uL (1.8-7.7); Neutrophils % 62.4 %; Nucleated Red Blood Cells % 0 %; Platelet Count 35 10^3/cmm (130-400); Red Blood Count 3.37 10^6/uL (4.1-5.3); Red Cell Distribution Width 21.2 % (12.1-15.1); White Blood Count 5.4 10^3/uL (4.0-10.0)
[2020-12-13 13:21] LABS: Alanine Aminotransferase 17 U/L (0-33); Albumin Level 3.6 g/dL (3.5-5.2); Alkaline Phosphatase 100 IU/L (35-105); Anion Gap 12.7 (5-19); Aspartate Amino Transferase 22 U/L (0-32); Blood Urea Nitrogen 8 mg/dL (8-23); Calcium 9.4 mg/dL (8.5-10.5); Carbon Dioxide 28 mmol/L (22-29); Chloride 103 mmol/L (98-107); Globulin 3.4 g/dL (1.3-4.6); Glomerular Filtration Rate 158.7 mL/min (90-130); Glucose 128 mg/dL (65-115); Lactate Dehydrogenase 320 U/L (135-214); Osmolality Calculated 290 mOsm/kg (285-295); Potassium 3.7 mmol/L (3.5-5.1); Sodium 140 mmol/L (136-145); Total Bilirubin 0.5 mg/dL (0.15-1.2)
--- NOTE | 2020-12-14 17:23 | ONC FU_ITS ---
Dr. Bradshaw Patient Follow-Up Note Patient: Eulalia Kaplan Unit #: [id number]: 1950 Dicatated By: Callum Bradshaw M.D.Date of Visit:Dec 14, 2020 Onc Med Follow-up/Prog Note Chief Complaint: Acute myeloid leukemia. 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 She had initially presented to Dr. Rosales with extreme fatigue. She was found to have a mild to moderately severe pancytopenia. Her bone marrow aspiration/biopsy on 06/02/2020 showed mildly hypercellularity, estimated at 30 to 50%. There were subtle dyspoietic features noted. Blast enumeration on the aspirate was noted to be challenging due to a paucity of spicules in the sample. Immunohistochemical stains on the biopsy showed strikingly increased CD34 positive blasts estimated at greater than 40 to 50% of the total cells. The appearance was felt to be consistent with acute myeloid leukemia, and with that finding she was referred to [facility] for further management. She was initially seen at [facility] by Dr. Ceferino Tipton on 06/13/2020. Her repeat bone marrow aspiration/biopsy showed acute myeloid leukemia with SRSF2, ASXL1, and RUNX1 mutations. She began treatment with 5-day decitabine in combination with venetoclax 200 mg daily for 28 days on 06/20/2020. She had a hospital admission from 07/16 to 07/22 for febrile neutropenia and suspected fungal pneumonia. Her repeat bone marrow aspiration/biopsy on 07/22/2020 showed complete remission. On 08/08/2020 she proceeded with cycle 2 of 5-day decitabine together with venetoclax 100 mg daily for 21 days. That cycle was complicated by prolonged neutropenia, but without fever or other complications. She had a follow-up visit at [facility] on 09/12/2020, and the following week she proceeded with cycle 3 of decitabine/venetoclax. Her medical history is otherwise significant for lichen sclerosis et atrophicus, confirmed by biopsy of the vulva and perineum in January 2019, and for a history of ulcerative colitis, for which she had been on treatment between 1981 in 1995. She also has a history of hyperlipidemia, but she has not required treatment for it. She has anxiety and depression, adequately managed with Lexapro. She is a non-smoker. INTERIM HISTORY: Subsequent to completing cycle 3 of decitabine/venetoclax, she had developed persistent cough. Her chest x-ray on 09/26/2020 showed streaky opacities at the lung bases, likely to represent atelectasis, though with pneumonia not excluded. The cough persisted, and she eventually developed low-grade fever. At that point she returned to her infectious disease specialist in [place], and in mid October she was confirmed to have COVID-19 virus infection. On 11/18/2019 when she was seen in the emergency room with shortness of breath, fatigue, and fever. She was found to be hypoxic. Her CT pulmonary angiogram showed patchy bilateral groundglass opacities and some consolidation compatible with bilateral interstitial pneumonia. There was no evidence for pulmonary emboli. She was admitted to the hospital for treatment. Her condition improved and she was discharged home on 11/26/2020. During subsequent follow-up, her hemoglobin dropped to 7.7 g, at which point she did receive transfusion of 2 units PRBC. She is seen for a follow-up visit. She is still pretty weak, she has ambulatory. Her ECOG score is 2. She has good appetite. Her fever has completely resolved now. She has having some sweating at night. She also has been having nosebleeds, mainly at night. She is short of breath and she has been on continuous oxygen. Her son has been able to taper the flow rate from 5 down to 2 L/min. She has now developed some cough again and she also has mild pleuritic pain in the upper chest. She has no GI or complaints. She has some generalized aching. She has occasional headache. She has no focal neurologic symptoms. Medications: Clobetasol Propionate (0.05 %) Cream Topical Take as Directed, Lexapro 2 (20 mg) Tablet Oral daily, Melatonin 1 (3 mg) Tablet Oral at bedtime, Pantoprazole Sodium (20 mg) Tablet, enteric coated Oral daily Allergies: Amoxicillin, Penicillins, and Sulfa Antibiotics. Vital Signs: Performed on Dec 14, 2020 10:51 Height - 62.00 in Weight - 117.4 lbs (LOW) BSA - 1.52 sq.m BMI - 21.47 Temperature - 98.3 F (LOW) Pulse - 79 /min Respiration - 18 /min BP - 169/77 mm(hg) (HIGH) O2 Sat - 92 % (LOW) Pain - 0 Fatigue - 7 Physical Examination: Constitutional - She appears somewhat weak generally, Eyes - Sclerae nonicteric. Conjunctivae clear, ENMT - No lesions noted in the oral cavity, Hematologic/Lymphatic - No cervical, clavicular, or axillary adenopathy, Respiratory - Lungs sound clear, Cardiovascular - Heart rhythm is regular. There is no murmur, gallop, or rub noted, Abdomen - Soft. Liver and spleen are not enlarged. There is no abdominal mass or ascites noted and there is no inguinal adenopathy, Extremities - No edema, Neurologic - No focal neurologic deficits noted. Lab/Imaging: Her laboratory studies yesterday included CBC showing hemoglobin 10.6 g, white blood cell count 5400, and platelet count 35,000. The absolute neutrophil count was 3300. Comprehensive metabolic profile was unremarkable. The LDH was mildly elevated at 320/214 U/L. Problem List: 1. Acute myeloid leukemia with SRSF2, ASXL1, and RUNX1 mutations. She had presented in May 2020 with pancytopenia and predominant neutropenia. 2. She has been on topical therapy for lichen sclerosis et atrophicus and for a skin eruption on her legs, presumably eczema. 3. Remote history of ulcerative colitis. 4. Hyperlipidemia, not requiring medication. 5. Anxiety/depression. Problems Addressed with this Encounter and Plan: 1. Patient with acute myeloid leukemia with SRSF2, ASXL1, and RUNX1 mutations. She began treatment with 5-day decitabine in combination with venetoclax 200 mg daily for 28 days on 06/20/2020. Her repeat bone marrow aspiration/biopsy on 07/22/2020 showed complete remission. On 08/08/2020 she proceeded with cycle 2 of 5-day decitabine together with venetoclax 100 mg daily for 21 days. That cycle was complicated by prolonged neutropenia, but without fever or other complications. She then continued with her third cycle of treatment on 09/19/2020. Subsequent to that treatment she had developed persistent cough and she then developed low-grade fever. In mid October she was confirmed to have COVID-19 virus infection, and on 11/17/2020 she was admitted to the hospital with COVID-19 pneumonia. At this point she is still recovering from that illness. She did require PRBC transfusion 1 week ago. Thus far her neutrophil count remains adequate. She has moderately severe thrombocytopenia. It is uncertain to what extent that may be due to the COVID-19 infection or to the underlying leukemia. Her further treatment, though, will be deferred pending further recovery. She will be scheduled to return on Saturday for repeat laboratory studies. I will see her again the following week, or sooner as needed. 2. She had a hospital admission from 07/16 to 07/22 for febrile neutropenia and suspected fungal pneumonia. She has remained on treatment with posaconazole. She also continues antiviral and antibacterial prophylaxis. Signed By: Callum Bradshaw M.D. <<Signature on File>>
[2020-12-19 15:51] LABS: Basophils % 0.2 %; Eosinophils % 0.5 %; Hematocrit 33.6 % (37.0-47.0); Hemoglobin 10.6 g/dL (11.5-15.3); Lymphocytes # 1.3 10^3/uL (0.8-4.8); Lymphocytes % 20.6 %; Mean Corpuscular HGB Conc 31.5 g/dL (30.0-36.0); Mean Corpuscular Hemoglobin 32.2 pg (28.0-34.0); Mean Corpuscular Volume 102.1 fl (81-99); Mean Platelet Volume 11.8 fL (7.4-10.4); Neutrophils # 3.85 10^3/uL (1.8-7.7); Neutrophils % 62.1 %; Nucleated Red Blood Cells % 0 %; Platelet Count 63 10^3/cmm (130-400); Red Blood Count 3.29 10^6/uL (4.1-5.3); Red Cell Distribution Width 20.6 % (12.1-15.1); White Blood Count 6.2 10^3/uL (4.0-10.0)
[2020-12-19 16:00] LABS: Alanine Aminotransferase 15 U/L (0-33); Albumin Level 3.8 g/dL (3.5-5.2); Alkaline Phosphatase 104 IU/L (35-105); Aspartate Amino Transferase 25 U/L (0-32); Blood Urea Nitrogen 10 mg/dL (8-23); Calcium 9.4 mg/dL (8.5-10.5); Carbon Dioxide 29 mmol/L (22-29); Chloride 101 mmol/L (98-107); Globulin 2.7 g/dL (1.3-4.6); Glomerular Filtration Rate 158.7 mL/min (90-130); Glucose 79 mg/dL (65-115); Osmolality Calculated 284 mOsm/kg (285-295); Sodium 138 mmol/L (136-145); Total Bilirubin 0.4 mg/dL (0.15-1.2); Total Protein 6.5 g/dL (6.6-8.7)
[2020-12-19 16:40] LABS: Anion Gap 12.1 (5-19); Potassium 4.1 mmol/L (3.5-5.1)
[2020-12-19 16:41] LABS: Lactate Dehydrogenase 344 U/L (135-214)
[2020-12-22] MEDS: alteplase 1 mg/mL SDV 2 mL 2 MG IV (14:40)
[2020-12-22 15:16] LABS: Basophils % 0.2 %; Eosinophils % 0.6 %; Hematocrit 32.1 % (37.0-47.0); Lymphocytes # 1.2 10^3/uL (0.8-4.8); Lymphocytes % 25.9 %; Mean Corpuscular HGB Conc 31.2 g/dL (30.0-36.0); Mean Corpuscular Hemoglobin 31.9 pg (28.0-34.0); Mean Corpuscular Volume 102.6 fl (81-99); Monocytes # 0.8 10^3/uL (0.2-0.9); Monocytes % 15.7 %; Neutrophils # 2.73 10^3/uL (1.8-7.7); Nucleated Red Blood Cells % 0 %; Platelet Count 39 10^3/cmm (130-400); Red Blood Count 3.13 10^6/uL (4.1-5.3); Red Cell Distribution Width 20.5 % (12.1-15.1); White Blood Count 4.8 10^3/uL (4.0-10.0)
[2020-12-22 16:01] LABS: Alanine Aminotransferase 15 U/L (0-33); Albumin Level 3.8 g/dL (3.5-5.2); Alkaline Phosphatase 89 IU/L (35-105); Anion Gap 13.1 (5-19); Aspartate Amino Transferase 29 U/L (0-32); Blood Urea Nitrogen 13 mg/dL (8-23); Calcium 9.1 mg/dL (8.5-10.5); Carbon Dioxide 28 mmol/L (22-29); Chloride 101 mmol/L (98-107); Globulin 2.6 g/dL (1.3-4.6); Glomerular Filtration Rate 122.7 mL/min (90-130); Glucose 92 mg/dL (65-115); Osmolality Calculated 286 mOsm/kg (285-295); Potassium 4.1 mmol/L (3.5-5.1); Sodium 138 mmol/L (136-145); Total Bilirubin 0.4 mg/dL (0.15-1.2); Total Protein 6.4 g/dL (6.6-8.7)
[2020-12-22 20:06] LABS: Lactate Dehydrogenase 312 U/L (135-214)
== END 2020-12-27 23:59 | disposition home or self-care (01) ==
LOC: ONCMED 05:33
PROVIDERS: PCP Internal Medicine; Visit Provider Internal Medicine Medical Oncology
DX: C92.00 Acute myeloblastic leukemia, not having achieved remission (principal); D61.818 Other pancytopenia; L90.0 Lichen sclerosus et atrophicus; K51.90 Ulcerative colitis, unspecified, without complications; E78.5 Hyperlipidemia, unspecified; F41.9 Anxiety disorder, unspecified; F32.9 Major depressive disorder, single episode, unspecified; Z79.899 Other long term (current) drug therapy; Z92.21 Personal history of antineoplastic chemotherapy
CPT/HCPCS: 36415; 36430; 36591; 36592; 36593; 80053; 83615; 85025; 86850; 86900; 86920; 96374; 99214; J1940; J2997; J7050; P9016

== ENCOUNTER 2021-01-05 05:49 | Outpatient (RCR) | payer MEDICARE, SELFPAY ==
[2020-12-29 14:11] LABS: Basophils % 0.2 %; Eosinophils # 0.1 10^3/uL (0.0-0.8); Eosinophils % 1.3 %; Hematocrit 32.2 % (37.0-47.0); Lymphocytes # 1.4 10^3/uL (0.8-4.8); Lymphocytes % 25.8 %; Mean Corpuscular HGB Conc 31.1 g/dL (30.0-36.0); Mean Corpuscular Hemoglobin 31.8 pg (28.0-34.0); Mean Corpuscular Volume 102.5 fl (81-99); Mean Platelet Volume 11.5 fL (7.4-10.4); Monocytes # 0.8 10^3/uL (0.2-0.9); Monocytes % 13.9 %; Neutrophils # 3.24 10^3/uL (1.8-7.7); Neutrophils % 58.3 %; Nucleated Red Blood Cells % 0 %; Platelet Count 61 10^3/cmm (130-400); Red Blood Count 3.14 10^6/uL (4.1-5.3); White Blood Count 5.6 10^3/uL (4.0-10.0)
[2020-12-29 14:48] LABS: Alanine Aminotransferase 20 U/L (0-33); Alkaline Phosphatase 86 IU/L (35-105); Anion Gap 14.5 (5-19); Aspartate Amino Transferase 30 U/L (0-32); Blood Urea Nitrogen 8 mg/dL (8-23); Calcium 9.1 mg/dL (8.5-10.5); Carbon Dioxide 26 mmol/L (22-29); Chloride 103 mmol/L (98-107); Globulin 2.7 g/dL (1.3-4.6); Glomerular Filtration Rate 158.7 mL/min (90-130); Glucose 104 mg/dL (65-115); Lactate Dehydrogenase 320 U/L (135-214); Osmolality Calculated 289 mOsm/kg (285-295); Potassium 3.5 mmol/L (3.5-5.1); Sodium 140 mmol/L (136-145); Total Bilirubin 0.4 mg/dL (0.15-1.2); Total Protein 6.7 g/dL (6.6-8.7)
[2021-01-03 13:51] LABS: Basophils % 0.1 %; Eosinophils # 0.1 10^3/uL (0.0-0.8); Hematocrit 34.3 % (37.0-47.0); Hemoglobin 10.8 g/dL (11.5-15.3); Lymphocytes # 2.2 10^3/uL (0.8-4.8); Mean Corpuscular HGB Conc 31.5 g/dL (30.0-36.0); Mean Corpuscular Hemoglobin 32.8 pg (28.0-34.0); Mean Corpuscular Volume 104.3 fl (81-99); Mean Platelet Volume 10.5 fL (7.4-10.4); Monocytes # 0.9 10^3/uL (0.2-0.9); Neutrophils # 3.73 10^3/uL (1.8-7.7); Neutrophils % 53.2 %; Nucleated Red Blood Cells % 0 %; Platelet Count 69 10^3/cmm (130-400); Red Blood Count 3.29 10^6/uL (4.1-5.3); Red Cell Distribution Width 20.8 % (12.1-15.1)
[2021-01-03 14:20] LABS: Alanine Aminotransferase 21 U/L (0-33); Albumin Level 3.9 g/dL (3.5-5.2); Alkaline Phosphatase 88 IU/L (35-105); Anion Gap 13.1 (5-19); Aspartate Amino Transferase 35 U/L (0-32); Blood Urea Nitrogen 10 mg/dL (8-23); Carbon Dioxide 28 mmol/L (22-29); Chloride 103 mmol/L (98-107); Globulin 2.7 g/dL (1.3-4.6); Glomerular Filtration Rate 158.7 mL/min (90-130); Glucose 109 mg/dL (65-115); Lactate Dehydrogenase 298 U/L (135-214); Osmolality Calculated 290 mOsm/kg (285-295); Potassium 4.1 mmol/L (3.5-5.1); Sodium 140 mmol/L (136-145); Total Bilirubin 0.4 mg/dL (0.15-1.2); Total Protein 6.6 g/dL (6.6-8.7)
[2021-01-05 14:30] LABS: Basophils % 0.2 %; Eosinophils # 0.1 10^3/uL (0.0-0.8); Eosinophils % 1.1 %; Hematocrit 32.7 % (37.0-47.0); Lymphocytes # 1.9 10^3/uL (0.8-4.8); Lymphocytes % 29.8 %; Mean Corpuscular HGB Conc 30.6 g/dL (30.0-36.0); Mean Corpuscular Hemoglobin 32.5 pg (28.0-34.0); Mean Corpuscular Volume 106.2 fl (81-99); Mean Platelet Volume 11.5 fL (7.4-10.4); Monocytes # 0.8 10^3/uL (0.2-0.9); Neutrophils # 3.55 10^3/uL (1.8-7.7); Neutrophils % 55.4 %; Nucleated Red Blood Cells % 0 %; Platelet Count 72 10^3/cmm (130-400); Red Blood Count 3.08 10^6/uL (4.1-5.3); Red Cell Distribution Width 20.9 % (12.1-15.1); White Blood Count 6.4 10^3/uL (4.0-10.0)
[2021-01-05 14:57] LABS: Alanine Aminotransferase 16 U/L (0-33); Albumin Level 3.8 g/dL (3.5-5.2); Alkaline Phosphatase 83 IU/L (35-105); Aspartate Amino Transferase 28 U/L (0-32); Blood Urea Nitrogen 7 mg/dL (8-23); Calcium 8.5 mg/dL (8.5-10.5); Carbon Dioxide 24 mmol/L (22-29); Chloride 100 mmol/L (98-107); Globulin 2.8 g/dL (1.3-4.6); Glomerular Filtration Rate 158.7 mL/min (90-130); Glucose 120 mg/dL (65-115); Osmolality Calculated 279 mOsm/kg (285-295); Sodium 135 mmol/L (136-145); Total Bilirubin 0.3 mg/dL (0.15-1.2); Total Protein 6.6 g/dL (6.6-8.7)
[2021-01-05 15:03] LABS: Lactate Dehydrogenase 297 U/L (135-214)
== END 2021-01-06 07:59 | disposition home or self-care (01) ==
LOC: ONCMED 05:49
PROVIDERS: PCP Internal Medicine; Visit Provider Internal Medicine Medical Oncology
DX: C92.01 Acute myeloblastic leukemia, in remission (principal); D61.818 Other pancytopenia
CPT/HCPCS: 36592; 80053; 83615; 85025

== ENCOUNTER 2021-01-06 08:00 | Outpatient (CLI) | payer MEDICARE, SELFPAY ==
--- NOTE | 2021-01-06 08:10 | CT_ITS ---
WS: [id number] CTA THORACIC TECHNIQUE: Contrast enhanced CTA of the thoracic aorta with coronal and sagittal reformatted images a nd maximum intensity projection (MIP) images. CLINICAL INFORMATION: RECENT COVID 19/INCREASED SOB/PAIN W/INSPIRATION;AML COMPARISON: CT November 18, 2020 DLP: 402.[address] scans at [facility] use at least one of these dose optimization techniques: automated e xposure control; mA and/or kV adjustment per patient size (includes targeted exams where dose is matc hed to clinical indication); or iterative reconstruction. FINDINGS: Proximal main pulmonary arteries are normal. Normal segmental and subsegmental pulmonary arteries. No evidence for pulmonary embolus. Previously described diffuse bilateral groundglass infiltrates have essentially resolved. Tiny amount of residual subpleural interstitial thickening. Moderate to advanced chronic emphysematous changes. No focal pneumonia or pleural fluid. No mediastinal or hilar lymphadenopathy. No axillary lymphadenop athy. Adrenal glands are normal. CT/CT angio chest 03085 IMPRESSION: 1. No evidence of pulmonary embolus. 2. Previously described diffuse bilateral pulmonary infiltrates have essential ly resolved. Small amount residual subpleural interstitial thickening. 3. Moderate to advanced chronic emphysematous changes. 4. No other significant findings.
[2021-01-06] MEDS: iohexol 350 mg/mL 100 mL Btl IV (08:34)
== END 2021-01-06 08:01 | disposition home or self-care (01) ==
LOC: RAD 08:04
PROVIDERS: PCP Internal Medicine; Visit Provider Internal Medicine Medical Oncology
DX: R06.02 Shortness of breath (principal); Z86.16 Personal history of COVID-19; C92.00 Acute myeloblastic leukemia, not having achieved remission
CPT/HCPCS: 71275

== ENCOUNTER 2021-01-26 06:25 | Outpatient (RCR) | payer MEDICARE, SELFPAY ==
[2021-01-09 10:46] LABS: Basophils % 0.2 %; Eosinophils # 0.1 10^3/uL (0.0-0.8); Hematocrit 32.6 % (37.0-47.0); Hemoglobin 10.2 g/dL (11.5-15.3); Lymphocytes # 1.6 10^3/uL (0.8-4.8); Mean Corpuscular HGB Conc 31.3 g/dL (30.0-36.0); Mean Corpuscular Hemoglobin 32.6 pg (28.0-34.0); Mean Corpuscular Volume 104.2 fl (81-99); Mean Platelet Volume 11.5 fL (7.4-10.4); Monocytes # 0.8 10^3/uL (0.2-0.9); Monocytes % 13.8 %; Neutrophils # 3.51 10^3/uL (1.8-7.7); Neutrophils % 58.5 %; Nucleated Red Blood Cells % 0 %; Platelet Count 79 10^3/cmm (130-400); Red Blood Count 3.13 10^6/uL (4.1-5.3); Red Cell Distribution Width 20.6 % (12.1-15.1)
[2021-01-09 11:07] LABS: Alanine Aminotransferase 16 U/L (0-33); Alkaline Phosphatase 82 IU/L (35-105); Anion Gap 13.6 (5-19); Aspartate Amino Transferase 26 U/L (0-32); Blood Urea Nitrogen 7 mg/dL (8-23); Calcium 8.9 mg/dL (8.5-10.5); Carbon Dioxide 28 mmol/L (22-29); Chloride 104 mmol/L (98-107); Globulin 2.6 g/dL (1.3-4.6); Glomerular Filtration Rate 158.7 mL/min (90-130); Glucose 99 mg/dL (65-115); Lactate Dehydrogenase 262 U/L (135-214); Osmolality Calculated 292 mOsm/kg (285-295); Potassium 3.6 mmol/L (3.5-5.1); Sodium 142 mmol/L (136-145); Total Bilirubin 0.4 mg/dL (0.15-1.2); Total Protein 6.6 g/dL (6.6-8.7)
[2021-01-09] MEDS: ondansetron 2 mg/ML SDV 2 mL 8 MG IVP (11:30)
--- NOTE | 2021-01-09 13:01 | ONC FU_ITS ---
Dr. Bradshaw Patient Follow-Up Note Patient: Eulalia Kaplan Unit #: [id number]: 1950 Dicatated By: Callum Bradshaw M.D.Date of Visit:Jan 09, 2021 Onc Med Follow-up/Prog Note Chief Complaint: Acute myeloid leukemia. 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 She had initially presented to Dr. Rosales with extreme fatigue. She was found to have a mild to moderately severe pancytopenia. Her bone marrow aspiration/biopsy on 06/02/2020 showed mildly hypercellularity, estimated at 30 to 50%. There were subtle dyspoietic features noted. Blast enumeration on the aspirate was noted to be challenging due to a paucity of spicules in the sample. Immunohistochemical stains on the biopsy showed strikingly increased CD34 positive blasts estimated at greater than 40 to 50% of the total cells. The appearance was felt to be consistent with acute myeloid leukemia, and with that finding she was referred to [facility] for further management. She was initially seen at [facility] by Dr. Ceferino Tipton on 06/13/2020. Her repeat bone marrow aspiration/biopsy showed acute myeloid leukemia with SRSF2, ASXL1, and RUNX1 mutations. She began treatment with 5-day decitabine in combination with venetoclax 200 mg daily for 28 days on 06/20/2020. She had a hospital admission from 07/16 to 07/22 for febrile neutropenia and suspected fungal pneumonia. Her repeat bone marrow aspiration/biopsy on 07/22/2020 showed complete remission. On 08/08/2020 she proceeded with cycle 3 of 5-day decitabine together with venetoclax 100 mg daily for 21 days. That cycle was complicated by prolonged neutropenia, but without fever or other complications. She had a follow-up visit at [facility] on 09/12/2020, and the following week she proceeded with cycle 4 of decitabine/venetoclax. Subsequent to completing cycle 4 of decitabine/venetoclax, she had developed persistent cough. Her chest x-ray on 09/26/2020 showed streaky opacities at the lung bases, likely to represent atelectasis, though with pneumonia not excluded. The cough persisted, and she eventually developed low-grade fever. At that point she returned to her infectious disease specialist in [place], and in mid October she was confirmed to have COVID-19 virus infection. On 11/18/2019 when she was seen in the emergency room with shortness of breath, fatigue, and fever. She was found to be hypoxic. Her CT pulmonary angiogram showed patchy bilateral groundglass opacities and some consolidation compatible with bilateral interstitial pneumonia. There was no evidence for pulmonary emboli. She was admitted to the hospital for treatment. Her condition improved and she was discharged home on 11/26/2020. During subsequent follow-up, her hemoglobin dropped to 7.7 g, at which point she did receive transfusion of 2 units PRBC. She had follow-up at [facility] on 12/27/2020. She was still recovering from the COVID-19 infection. She was recommended to restart treatment with decitabine/venetoclax as soon as possible. Her medical history is otherwise significant for lichen sclerosis et atrophicus, confirmed by biopsy of the vulva and perineum in January 2019, and for a history of ulcerative colitis, for which she had been on treatment between 1981 in 1995. She also has a history of hyperlipidemia, but she has not required treatment for it. She has anxiety and depression, adequately managed with Lexapro. She is a non-smoker. INTERIM HISTORY: A repeat CT pulmonary angiogram on 01/06/2021 showed no evidence of pulmonary embolus. The previously described diffuse bilateral pulmonary infiltrates were noted to have essentially resolved. There was just a small amount of residual subpleural interstitial thickening. There were moderate to advanced chronic emphysematous changes. She is seen for a follow-up visit. She is feeling a little better now. She still has some fatigue, which she is doing light work. ECOG score is 1. Her appetite is good. She has not had fever. She has night sweating 2 or 3 times a week. She is not having sinus symptoms and she does not complain of sore mouth or throat. She still has some cough. She does not complain of shortness of breath or chest pain. She has no GI or complaints. She has no significant joint or bone pain. She does not complain of headache or dizziness, and she has no focal neurologic symptoms. She has having a lot of bruising. Medications: Clobetasol Propionate (0.05 %) Cream Topical Take as Directed, Lexapro 2 (20 mg) Tablet Oral daily, Melatonin 1 (3 mg) Tablet Oral at bedtime, Pantoprazole Sodium (20 mg) Tablet, enteric coated Oral daily Allergies: Amoxicillin, Penicillins, and Sulfa Antibiotics. Vital Signs: Performed on Jan 09, 2021 10:08 Height - 62.00 in Weight - 123 lbs (HIGH) BSA - 1.55 sq.m BMI - 22.50 Temperature - 96.3 F (LOW) Pulse - 69 /min Respiration - 18 /min BP - 176/70 mm(hg) (HIGH) O2 Sat - 96 % Pain - 0 Fatigue - 0 Physical Examination: Constitutional - She still appears somewhat weak generally, but improved, Eyes - Sclerae nonicteric. Conjunctivae clear, ENMT - No lesions noted in the oral cavity, Hematologic/Lymphatic - No cervical, clavicular, or axillary adenopathy, Respiratory - Lungs sound clear, Cardiovascular - Heart rhythm is regular. There is no murmur, gallop, or rub noted, Abdomen - Soft. Liver and spleen are not enlarged. There is no abdominal mass or ascites noted and there is no inguinal adenopathy, Extremities - No edema. There are multiple purpuric lesions on both arms, Neurologic - No focal neurologic deficits noted. Lab/Imaging: Test performed on Jan 09, 2021 10:05 LDH (Total) 262 U/L Sodium 142 mmol/L Potassium 3.6 mmol/L Chloride 104 mmol/L CO2 28 mmol/L Anion Gap 13.6 BUN 7 mg/dL Creatinine 0.4 mg/dL Cr Clearance (Est) 118.56 mL/min eGFR 158.7 mL/min Glucose 99 mg/dL Osmolality - Calculated 292 mOsm/kg Calcium 8.9 mg/dL Protein, Total 6.6 g/dL Albumin 4.0 g/dL Globulin 2.6 g/dL Bilirubin, Total 0.4 mg/dL ALT (SGPT) 16 U/L AST (SGOT) 26 U/L Alkaline Phosphatase 82 IU/L WBC 6.0 10 3/uL RBC 3.13 10 6/uL HGB 10.2 g/dL HCT 32.6 % MCV 104.2 fl MCH 32.6 pg MCHC 31.3 g/dL RDW 20.6 % Platelet Count 79 10 3/cmm MPV 11.5 fL Neutrophils 3.51 10 3/uL Lymphocytes 1.6 10 3/uL Monocytes 0.8 10 3/uL Eosinophils 0.1 10 3/uL Basophils 0.0 10 3/uL Neutrophil % 58.5 % Lymphocyte % 26.0 % Monocyte % 13.8 % Eosinophil % 1.0 % Basophils % 0.2 % NRBC % 0 % Problem List: 1. Acute myeloid leukemia with SRSF2, ASXL1, and RUNX1 mutations. She had presented in May 2020 with pancytopenia and predominant neutropenia. 2. She has been on topical therapy for lichen sclerosis et atrophicus and for a skin eruption on her legs, presumably eczema. 3. Remote history of ulcerative colitis. 4. Hyperlipidemia, not requiring medication. 5. Anxiety/depression. Problems Addressed with this Encounter and Plan: 1. Patient with acute myeloid leukemia with SRSF2, ASXL1, and RUNX1 mutations. She began treatment with 5-day decitabine in combination with venetoclax 200 mg daily for 28 days on 06/20/2020. Her repeat bone marrow aspiration/biopsy on 07/22/2020 showed complete remission. On 08/08/2020 she proceeded with cycle 3 of 5-day decitabine together with venetoclax 100 mg daily for 21 days. That cycle was complicated by prolonged neutropenia, but without fever or other complications. She then continued with cycle 4 on 09/19/2020. Subsequent to that treatment she had developed persistent cough and she then developed low-grade fever. In mid October she was confirmed to have COVID-19 virus infection, and on 11/17/2020 she was admitted to the hospital with COVID-19 pneumonia. She has been showing gradual recovery. A repeat CT pulmonary angiogram on 01/06/2021 showed no evidence of pulmonary embolism. The diffuse bilateral pulmonary infiltrates were noted to be essentially resolved. She will proceed now with cycle 5 of 5-day decitabine together with venetoclax 100 mg daily for 21 days. Blood counts will be monitored weekly. She will be scheduled for a follow-up visit in 4 weeks. 2. She had a hospital admission from 07/16 to 07/22 for febrile neutropenia and suspected fungal pneumonia. She has remained on treatment with posaconazole. She also continues antiviral and antibacterial prophylaxis. Signed By: Callum Bradshaw M.D. <<Signature on File>>
[2021-01-10] MEDS: sodium chloride 0.9% 250 ML IV ×2 (11:30→14:50)
[2021-01-10] MEDS: ondansetron 2 mg/ML SDV 2 mL 8 MG IVP (14:50)
[2021-01-11] MEDS: sodium chloride 0.9% 250 ML IV (14:00)
[2021-01-11] MEDS: ondansetron 2 mg/ML SDV 2 mL 8 MG IVP (14:00)
[2021-01-12] MEDS: alteplase 1 mg/mL SDV 2 mL 2 MG IV (13:26)
[2021-01-12] MEDS: sodium chloride 0.9% 250 ML IV (14:00)
[2021-01-12] MEDS: ondansetron 2 mg/ML SDV 2 mL 8 MG IVP (14:02)
[2021-01-12 14:25] LABS: Eosinophils # 0.1 10^3/uL (0.0-0.8); Eosinophils % 1.6 %; Hematocrit 31.5 % (37.0-47.0); Hemoglobin 9.9 g/dL (11.5-15.3); Lymphocytes # 1.5 10^3/uL (0.8-4.8); Lymphocytes % 26.6 %; Mean Corpuscular HGB Conc 31.4 g/dL (30.0-36.0); Mean Corpuscular Hemoglobin 32.6 pg (28.0-34.0); Mean Corpuscular Volume 103.6 fl (81-99); Mean Platelet Volume 11.5 fL (7.4-10.4); Monocytes # 0.5 10^3/uL (0.2-0.9); Monocytes % 9.3 %; Neutrophils % 62.3 %; Nucleated Red Blood Cells % 0 %; Platelet Count 79 10^3/cmm (130-400); Red Blood Count 3.04 10^6/uL (4.1-5.3); Red Cell Distribution Width 20.1 % (12.1-15.1); White Blood Count 5.6 10^3/uL (4.0-10.0)
[2021-01-13] MEDS: palonosetron 0.25 mg/5 mL SDV IVP (09:52)
[2021-01-13] MEDS: sodium chloride 0.9% 250 ML IV (09:52)
[2021-01-16 13:37] LABS: Eosinophils % 0.4 %; Hematocrit 32.6 % (37.0-47.0); Hemoglobin 10.2 g/dL (11.5-15.3); Lymphocytes # 1.2 10^3/uL (0.8-4.8); Lymphocytes % 22.8 %; Mean Corpuscular HGB Conc 31.3 g/dL (30.0-36.0); Mean Corpuscular Hemoglobin 32.4 pg (28.0-34.0); Mean Corpuscular Volume 103.5 fl (81-99); Mean Platelet Volume 11.6 fL (7.4-10.4); Monocytes # 0.3 10^3/uL (0.2-0.9); Neutrophils # 3.56 10^3/uL (1.8-7.7); Neutrophils % 70.6 %; Nucleated Red Blood Cells % 0 %; Platelet Count 62 10^3/cmm (130-400); Red Blood Count 3.15 10^6/uL (4.1-5.3); Red Cell Distribution Width 19.4 % (12.1-15.1)
[2021-01-19 13:44] LABS: Hemoglobin 9.5 g/dL (11.5-15.3); Lymphocytes # 1.1 10^3/uL (0.8-4.8); Lymphocytes % 48.2 %; Mean Corpuscular HGB Conc 30.6 g/dL (30.0-36.0); Mean Corpuscular Hemoglobin 32.3 pg (28.0-34.0); Mean Corpuscular Volume 105.4 fl (81-99); Mean Platelet Volume 9.8 fL (7.4-10.4); Monocytes # 0.2 10^3/uL (0.2-0.9); Monocytes % 8.2 %; Neutrophils % 43.6 %; Nucleated Red Blood Cells % 0 %; Platelet Count 38 10^3/cmm (130-400); Red Blood Count 2.94 10^6/uL (4.1-5.3); Red Cell Distribution Width 19.2 % (12.1-15.1); White Blood Count 2.2 10^3/uL (4.0-10.0)
[2021-01-19 13:45] LABS: Neutrophils # 0.96 10^3/uL (1.8-7.7)
[2021-01-19 14:07] LABS: Alanine Aminotransferase 22 U/L (0-33); Albumin Level 4.2 g/dL (3.5-5.2); Alkaline Phosphatase 76 IU/L (35-105); Aspartate Amino Transferase 37 U/L (0-32); Blood Urea Nitrogen 9 mg/dL (8-23); Calcium 9.5 mg/dL (8.5-10.5); Carbon Dioxide 27 mmol/L (22-29); Chloride 103 mmol/L (98-107); Globulin 1.9 g/dL (1.3-4.6); Glomerular Filtration Rate 158.7 mL/min (90-130); Glucose 75 mg/dL (65-115); Lactate Dehydrogenase 243 U/L (135-214); Osmolality Calculated 289 mOsm/kg (285-295); Sodium 141 mmol/L (136-145); Total Bilirubin 0.6 mg/dL (0.15-1.2); Total Protein 6.1 g/dL (6.6-8.7)
[2021-01-23 13:23] LABS: Hematocrit 30.7 % (37.0-47.0); Hemoglobin 9.9 g/dL (11.5-15.3); Lymphocytes # 1.1 10^3/uL (0.8-4.8); Mean Corpuscular HGB Conc 32.2 g/dL (30.0-36.0); Mean Corpuscular Hemoglobin 33.4 pg (28.0-34.0); Mean Corpuscular Volume 103.7 fl (81-99); Monocytes # 0.1 10^3/uL (0.2-0.9); Nucleated Red Blood Cells % 0 %; Red Blood Count 2.96 10^6/uL (4.1-5.3); Red Cell Distribution Width 18.7 % (12.1-15.1); White Blood Count 1.4 10^3/uL (4.0-10.0)
[2021-01-23 13:42] LABS: Slide Review Slide Review Perform
[2021-01-23 13:57] LABS: Alanine Aminotransferase 22 U/L (0-33); Albumin Level 4.2 g/dL (3.5-5.2); Alkaline Phosphatase 79 IU/L (35-105); Anion Gap 11.8 (5-19); Aspartate Amino Transferase 31 U/L (0-32); Blood Urea Nitrogen 8 mg/dL (8-23); Calcium 9.4 mg/dL (8.5-10.5); Carbon Dioxide 30 mmol/L (22-29); Chloride 100 mmol/L (98-107); Globulin 2.2 g/dL (1.3-4.6); Glomerular Filtration Rate 158.7 mL/min (90-130); Glucose 78 mg/dL (65-115); Lactate Dehydrogenase 238 U/L (135-214); Osmolality Calculated 283 mOsm/kg (285-295); Potassium 3.8 mmol/L (3.5-5.1); Sodium 138 mmol/L (136-145); Total Bilirubin 0.5 mg/dL (0.15-1.2); Total Protein 6.4 g/dL (6.6-8.7)
[2021-01-23 13:59] LABS: Neutrophils # 0.21 10^3/uL (1.8-7.7); Platelet Count 22 10^3/cmm (130-400)
[2021-01-26 09:15] LABS: Hematocrit 31.5 % (37.0-47.0); Lymphocytes # 0.7 10^3/uL (0.8-4.8); Lymphocytes % 84.1 %; Mean Corpuscular HGB Conc 31.7 g/dL (30.0-36.0); Mean Corpuscular Hemoglobin 33.4 pg (28.0-34.0); Mean Corpuscular Volume 105.4 fl (81-99); Monocytes % 3.4 %; Neutrophils % 12.5 %; Nucleated Red Blood Cells % 0 %; Red Blood Count 2.99 10^6/uL (4.1-5.3); Red Cell Distribution Width 19.5 % (12.1-15.1)
[2021-01-26 09:43] LABS: Alanine Aminotransferase 17 U/L (0-33); Albumin Level 4.2 g/dL (3.5-5.2); Alkaline Phosphatase 80 IU/L (35-105); Anion Gap 13.9 (5-19); Aspartate Amino Transferase 28 U/L (0-32); Blood Urea Nitrogen 12 mg/dL (8-23); Calcium 9.6 mg/dL (8.5-10.5); Carbon Dioxide 27 mmol/L (22-29); Chloride 104 mmol/L (98-107); Globulin 2.3 g/dL (1.3-4.6); Glomerular Filtration Rate 99.4 mL/min (90-130); Glucose 119 mg/dL (65-115); Lactate Dehydrogenase 210 U/L (135-214); Osmolality Calculated 293 mOsm/kg (285-295); Potassium 3.9 mmol/L (3.5-5.1); Sodium 141 mmol/L (136-145); Total Bilirubin 0.5 mg/dL (0.15-1.2); Total Protein 6.5 g/dL (6.6-8.7)
[2021-01-26 09:53] LABS: Slide Review Slide Review Perform; White Blood Count 0.9 10^3/uL (4.0-10.0)
[2021-01-26 09:54] LABS: Neutrophils # 0.11 10^3/uL (1.8-7.7); Platelet Count 20 10^3/cmm (130-400)
== END 2021-01-26 23:59 | disposition home or self-care (01) ==
LOC: ONCMED 06:25
PROVIDERS: PCP Internal Medicine; Visit Provider Internal Medicine Medical Oncology
DX: Z51.11 Encounter for antineoplastic chemotherapy (principal); C92.00 Acute myeloblastic leukemia, not having achieved remission; D61.818 Other pancytopenia; D70.1 Agranulocytosis secondary to cancer chemotherapy; T45.1X5D Adverse effect of antineoplastic and immunosuppressive drugs, subsequent encounter; L90.0 Lichen sclerosus et atrophicus; E78.5 Hyperlipidemia, unspecified; F41.9 Anxiety disorder, unspecified; F32.9 Major depressive disorder, single episode, unspecified; Z87.19 Personal history of other diseases of the digestive system; Z79.899 Other long term (current) drug therapy
CPT/HCPCS: 36592; 80053; 83615; 85025; 96375; 96413; 99215; J0894; J2405; J2469; J2997; J7050

== ENCOUNTER 2021-02-20 14:45 | Outpatient (CLI) | payer MEDICARE, SELFPAY ==
--- NOTE | 2021-02-20 14:55 | XR_ITS ---
WS: [id number] Exam: XR hip LT 2-3V wo/w pel* [id number] Date/Time of Exam: 02/20/2021 2:55 PM Reason For Exam: PAIN IN LEFT HIP No fracture or dislocation. Joint compartment relatively well maintained. Mild soft tissue calcificat ion along the greater trochanter of the femur. XR/XR hip LT 2-3V wo/w pel* [id number] IMPRESSION: 1. No fracture or dislocation noted. Minimal degenerative changes.
== END 2021-02-20 14:46 | disposition home or self-care (01) ==
LOC: RAD 14:50
PROVIDERS: PCP Internal Medicine; Visit Provider Internal Medicine
DX: M25.552 Pain in left hip (principal)
CPT/HCPCS: 73502

== ENCOUNTER 2021-02-23 06:16 | Outpatient (RCR) | payer MEDICARE, SELFPAY ==
[2021-01-30 09:11] LABS: Hematocrit 32.7 % (37.0-47.0); Hemoglobin 10.3 g/dL (11.5-15.3); Lymphocytes # 0.9 10^3/uL (0.8-4.8); Lymphocytes % 91.7 %; Mean Corpuscular HGB Conc 31.5 g/dL (30.0-36.0); Mean Corpuscular Hemoglobin 32.9 pg (28.0-34.0); Mean Corpuscular Volume 104.5 fl (81-99); Mean Platelet Volume 11.7 fL (7.4-10.4); Neutrophils % 7.3 %; Nucleated Red Blood Cells % 0 %; Platelet Count 40 10^3/cmm (130-400); Red Blood Count 3.13 10^6/uL (4.1-5.3); Red Cell Distribution Width 19.2 % (12.1-15.1)
[2021-01-30 09:34] LABS: Neutrophils # 0.07 10^3/uL (1.8-7.7)
[2021-01-30 09:35] LABS: Slide Review Slide Review Perform
[2021-01-30 09:47] LABS: Alanine Aminotransferase 23 U/L (0-33); Albumin Level 4.1 g/dL (3.5-5.2); Alkaline Phosphatase 81 IU/L (35-105); Anion Gap 13.2 (5-19); Aspartate Amino Transferase 30 U/L (0-32); Blood Urea Nitrogen 11 mg/dL (8-23); Calcium 9.5 mg/dL (8.5-10.5); Carbon Dioxide 27 mmol/L (22-29); Chloride 103 mmol/L (98-107); Globulin 2.5 g/dL (1.3-4.6); Glomerular Filtration Rate 158.7 mL/min (90-130); Glucose 87 mg/dL (65-115); Lactate Dehydrogenase 223 U/L (135-214); Osmolality Calculated 287 mOsm/kg (285-295); Potassium 4.2 mmol/L (3.5-5.1); Sodium 139 mmol/L (136-145); Total Bilirubin 0.5 mg/dL (0.15-1.2); Total Protein 6.6 g/dL (6.6-8.7)
--- NOTE | 2021-01-30 09:59 | ONC FU_ITS ---
Dr. Bradshaw Patient Follow-Up Note Patient: Eulalia Kaplan Unit #: [id number]: 1950 Dicatated By: Callum Bradshaw M.D.Date of Visit:Jan 30, 2021 Onc Med Follow-up/Prog Note Chief Complaint: Acute myeloid leukemia. 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 She had initially presented to Dr. Rosales with extreme fatigue. She was found to have a mild to moderately severe pancytopenia. Her bone marrow aspiration/biopsy on 06/02/2020 showed mildly hypercellularity, estimated at 30 to 50%. There were subtle dyspoietic features noted. Blast enumeration on the aspirate was noted to be challenging due to a paucity of spicules in the sample. Immunohistochemical stains on the biopsy showed strikingly increased CD34 positive blasts estimated at greater than 40 to 50% of the total cells. The appearance was felt to be consistent with acute myeloid leukemia, and with that finding she was referred to [facility] for further management. She was initially seen at [facility] by Dr. Ceferino Tipton on 06/13/2020. Her repeat bone marrow aspiration/biopsy showed acute myeloid leukemia with SRSF2, ASXL1, and RUNX1 mutations. She began treatment with 5-day decitabine in combination with venetoclax 200 mg daily for 28 days on 06/20/2020. She had a hospital admission from 07/16 to 07/22 for febrile neutropenia and suspected fungal pneumonia. Her repeat bone marrow aspiration/biopsy on 07/22/2020 showed complete remission. On 08/08/2020 she proceeded with cycle 3 of 5-day decitabine together with venetoclax 100 mg daily for 21 days. That cycle was complicated by prolonged neutropenia, but without fever or other complications. She had a follow-up visit at [facility] on 09/12/2020, and the following week she proceeded with cycle 4 of decitabine/venetoclax. Subsequent to completing cycle 4 of decitabine/venetoclax, she had developed persistent cough. Her chest x-ray on 09/26/2020 showed streaky opacities at the lung bases, likely to represent atelectasis, though with pneumonia not excluded. The cough persisted, and she eventually developed low-grade fever. At that point she returned to her infectious disease specialist in [place], and in mid October she was confirmed to have COVID-19 virus infection. On 11/18/2019 when she was seen in the emergency room with shortness of breath, fatigue, and fever. She was found to be hypoxic. Her CT pulmonary angiogram showed patchy bilateral groundglass opacities and some consolidation compatible with bilateral interstitial pneumonia. There was no evidence for pulmonary emboli. She was admitted to the hospital for treatment. Her condition improved and she was discharged home on 11/26/2020. During subsequent follow-up, her hemoglobin dropped to 7.7 g, at which point she did receive transfusion of 2 units PRBC. She had follow-up at [facility] on 12/27/2020. She was still recovering from the COVID-19 infection. She was recommended to restart treatment with decitabine/venetoclax as soon as possible. Her medical history is otherwise significant for lichen sclerosis et atrophicus, confirmed by biopsy of the vulva and perineum in January 2019, and for a history of ulcerative colitis, for which she had been on treatment between 1981 in 1995. She also has a history of hyperlipidemia, but she has not required treatment for it. She has anxiety and depression, adequately managed with Lexapro. She is a non-smoker. INTERIM HISTORY: A repeat CT pulmonary angiogram on 01/06/2021 showed no evidence of pulmonary embolus. The previously described diffuse bilateral pulmonary infiltrates were noted to have essentially resolved. There was just a small amount of residual subpleural interstitial thickening. There were moderate to advanced chronic emphysematous changes. As of her follow-up visit on 01/09/2021 she was feeling better, and she was able to continue with cycle 5 of decitabine/venetoclax. She is seen for a follow-up visit. As of last week she had become severely neutropenic with an ANC of 200, at that point she did start antibiotic prophylaxis with Levaquin. She completed her 21 days of venetoclax yesterday. She has been feeling pretty good. She has limited activity, but she is able to do light work. ECOG score is 1. Her appetite comes and goes. She has not had fever, chills, or sweating. She does report having some difficulty with hearing, which he has not had sinus congestion, sore mouth, or sore throat. She has mild exertional dyspnea, and she is still on oxygen at night. She has only a little bit of cough. She does not complain of chest pain. She has had a little nausea a couple of mornings and she has mild constipation. She has no complaints. She is having some generalized soreness, especially at night. She does not complain of headache or dizziness. She has some numbness in her right hand. Medications: Clobetasol Propionate (0.05 %) Cream Topical Take as Directed, Levaquin 1 Tablet (of 750 mg) Oral daily for 10 days, Lexapro 2 (20 mg) Tablet Oral daily, Lisinopril 1 Tablet (of 20 mg) Oral b.i.d., Melatonin 1 (3 mg) Tablet Oral at bedtime, Pantoprazole Sodium (20 mg) Tablet, enteric coated Oral daily Allergies: Amoxicillin, Penicillins, and Sulfa Antibiotics. Vital Signs: Performed on Jan 30, 2021 09:44 Height - 62.00 in Weight - 123.2 lbs (HIGH) BSA - 1.56 sq.m BMI - 22.53 Temperature - 97.4 F (LOW) Pulse - 71 /min Respiration - 18 /min BP - 145/71 mm(hg) (HIGH) O2 Sat - 98 % Pain - 0 Fatigue - 0 Physical Examination: Constitutional - She looks pretty good generally, Eyes - Sclerae nonicteric. Conjunctivae clear, ENMT - No lesions noted in the oral cavity, Hematologic/Lymphatic - No cervical, clavicular, or axillary adenopathy, Respiratory - Lungs sound clear, Cardiovascular - Heart rhythm is regular. There is no murmur, gallop, or rub noted, Abdomen - Soft. Liver and spleen are not enlarged. There is no abdominal mass or ascites noted and there is no inguinal adenopathy, Extremities - No edema. There are multiple purpuric lesions on the arms and legs, Neurologic - No focal neurologic deficits noted. Lab/Imaging: Test performed on Jan 30, 2021 08:21 WBC 1.0 10 3/uL RBC 3.13 10 6/uL HGB 10.3 g/dL HCT 32.7 % MCV 104.5 fl MCH 32.9 pg MCHC 31.5 g/dL RDW 19.2 % Platelet Count 40 10 3/cmm MPV 11.7 fL Neutrophils 0.07 10 3/uL Lymphocytes 0.9 10 3/uL Monocytes 0.0 10 3/uL Eosinophils 0.0 10 3/uL Basophils 0.0 10 3/uL Neutrophil % 7.3 % Lymphocyte % 91.7 % Monocyte % 1.0 % Eosinophil % 0.0 % Basophils % 0.0 % NRBC % 0 % CBC Slide Review Slide Review Perform SLIDE REVIEW AGREES WITH AUTOMATED RESULTS Problem List: 1. Acute myeloid leukemia with SRSF2, ASXL1, and RUNX1 mutations. She had presented in May 2020 with pancytopenia and predominant neutropenia. 2. She has been on topical therapy for lichen sclerosis et atrophicus and for a skin eruption on her legs, presumably eczema. 3. Remote history of ulcerative colitis. 4. Hyperlipidemia, not requiring medication. 5. Anxiety/depression. 6. She was diagnosed with COVID-19 virus infection in October 2020. Problems Addressed with this Encounter and Plan: Patient with acute myeloid leukemia with SRSF2, ASXL1, and RUNX1 mutations. She began treatment with 5-day decitabine in combination with venetoclax 200 mg daily for 28 days on 06/20/2020. Her repeat bone marrow aspiration/biopsy on 07/22/2020 showed complete remission. On 08/08/2020 she proceeded with cycle 3 of 5-day decitabine together with venetoclax 100 mg daily for 21 days. That cycle was complicated by prolonged neutropenia, but without fever or other complications. She then continued with cycle 4 on 09/19/2020. Subsequent to that treatment she had developed persistent cough and she then developed low-grade fever. In mid October she was confirmed to have COVID-19 virus infection, and on 11/17/2020 she was admitted to the hospital with COVID-19 pneumonia. She has been showing gradual recovery. A repeat CT pulmonary angiogram on 01/06/2021 showed no evidence of pulmonary embolism. The diffuse bilateral pulmonary infiltrates were noted to be essentially resolved. On 01/09/2021 she was able to restart treatment with cycle 5 of 5-day decitabine in combination with venetoclax. She is currently at day 22 of the 5th cycle. She is still severely neutropenic, but not overtly symptomatic. She will continue antibiotic prophylaxis with Levaquin 500 mg daily and she also will continue prophylaxis with posaconazole and acyclovir. She will return in 1 week for a repeat CBC. I do not anticipate restarting treatment for at least 2 weeks. Signed By: Callum Bradshaw M.D. <<Signature on File>>
[2021-02-06 14:01] LABS: Hematocrit 32.5 % (37.0-47.0); Hemoglobin 10.4 g/dL (11.5-15.3); Lymphocytes % 84.9 %; Mean Corpuscular Hemoglobin 33.5 pg (28.0-34.0); Mean Corpuscular Volume 104.8 fl (81-99); Mean Platelet Volume 10.6 fL (7.4-10.4); Monocytes # 0.1 10^3/uL (0.2-0.9); Monocytes % 7.6 %; Neutrophils % 7.5 %; Nucleated Red Blood Cells % 0 %; Platelet Count 74 10^3/cmm (130-400); Red Cell Distribution Width 18.4 % (12.1-15.1); White Blood Count 1.2 10^3/uL (4.0-10.0)
[2021-02-06 14:11] LABS: Neutrophils # 0.09 10^3/uL (1.8-7.7)
[2021-02-06 14:16] LABS: Alanine Aminotransferase 15 U/L (0-33); Albumin Level 4.1 g/dL (3.5-5.2); Alkaline Phosphatase 95 IU/L (35-105); Anion Gap 13.8 (5-19); Aspartate Amino Transferase 21 U/L (0-32); Blood Urea Nitrogen 11 mg/dL (8-23); Calcium 9.3 mg/dL (8.5-10.5); Carbon Dioxide 27 mmol/L (22-29); Chloride 102 mmol/L (98-107); Globulin 2.1 g/dL (1.3-4.6); Glomerular Filtration Rate 122.7 mL/min (90-130); Glucose 128 mg/dL (65-115); Lactate Dehydrogenase 185 U/L (135-214); Osmolality Calculated 289 mOsm/kg (285-295); Potassium 3.8 mmol/L (3.5-5.1); Sodium 139 mmol/L (136-145); Total Bilirubin 0.3 mg/dL (0.15-1.2); Total Protein 6.2 g/dL (6.6-8.7)
[2021-02-09 13:41] LABS: Hematocrit 32.5 % (37.0-47.0); Hemoglobin 10.6 g/dL (11.5-15.3); Lymphocytes # 1.1 10^3/uL (0.8-4.8); Lymphocytes % 63.9 %; Mean Corpuscular HGB Conc 32.6 g/dL (30.0-36.0); Mean Corpuscular Hemoglobin 34.4 pg (28.0-34.0); Mean Corpuscular Volume 105.5 fl (81-99); Mean Platelet Volume 12.5 fL (7.4-10.4); Monocytes # 0.3 10^3/uL (0.2-0.9); Monocytes % 19.3 %; Neutrophils % 16.2 %; Nucleated Red Blood Cells % 0 %; Platelet Count 65 10^3/cmm (130-400); Red Blood Count 3.08 10^6/uL (4.1-5.3); Red Cell Distribution Width 18.6 % (12.1-15.1); White Blood Count 1.7 10^3/uL (4.0-10.0)
[2021-02-09 14:10] LABS: Alanine Aminotransferase 19 U/L (0-33); Alkaline Phosphatase 87 IU/L (35-105); Anion Gap 11.7 (5-19); Aspartate Amino Transferase 28 U/L (0-32); Blood Urea Nitrogen 10 mg/dL (8-23); Carbon Dioxide 26 mmol/L (22-29); Chloride 104 mmol/L (98-107); Globulin 2.2 g/dL (1.3-4.6); Glomerular Filtration Rate 158.7 mL/min (90-130); Glucose 78 mg/dL (65-115); Lactate Dehydrogenase 189 U/L (135-214); Osmolality Calculated 284 mOsm/kg (285-295); Potassium 3.7 mmol/L (3.5-5.1); Sodium 138 mmol/L (136-145); Total Bilirubin 0.4 mg/dL (0.15-1.2); Total Protein 6.2 g/dL (6.6-8.7)
[2021-02-09 14:19] LABS: Neutrophils # 0.27 10^3/uL (1.8-7.7); Slide Review Slide Review Perform
[2021-02-13 10:27] LABS: Hematocrit 32.4 % (37.0-47.0); Hemoglobin 10.4 g/dL (11.5-15.3); Lymphocytes % 45.8 %; Mean Corpuscular HGB Conc 32.1 g/dL (30.0-36.0); Mean Corpuscular Volume 105.9 fl (81-99); Mean Platelet Volume 11.6 fL (7.4-10.4); Monocytes # 0.4 10^3/uL (0.2-0.9); Monocytes % 20.1 %; Neutrophils % 33.2 %; Nucleated Red Blood Cells % 0 %; Platelet Count 48 10^3/cmm (130-400); Red Blood Count 3.06 10^6/uL (4.1-5.3); White Blood Count 2.1 10^3/uL (4.0-10.0)
[2021-02-13 10:49] LABS: Neutrophils # 0.71 10^3/uL (1.8-7.7)
[2021-02-13 10:50] LABS: Alanine Aminotransferase 15 U/L (0-33); Albumin Level 3.8 g/dL (3.5-5.2); Alkaline Phosphatase 86 IU/L (35-105); Blood Urea Nitrogen 10 mg/dL (8-23); Carbon Dioxide 26 mmol/L (22-29); Chloride 107 mmol/L (98-107); Glomerular Filtration Rate 122.7 mL/min (90-130); Glucose 113 mg/dL (65-115); Osmolality Calculated 292 mOsm/kg (285-295); Sodium 141 mmol/L (136-145); Total Bilirubin 0.3 mg/dL (0.15-1.2); Total Protein 5.8 g/dL (6.6-8.7)
[2021-02-13 10:54] LABS: Anion Gap 11.9 (5-19); Potassium 3.9 mmol/L (3.5-5.1)
[2021-02-13 10:55] LABS: Aspartate Amino Transferase 30 U/L (0-32); Lactate Dehydrogenase 241 U/L (135-214)
--- NOTE | 2021-02-13 13:19 | XRR_ITS ---
PROCEDURE INFORMATION: Exam: XR Chest Exam date and time: 02/13/2021 1:19 PM Age: 70 years old Clinical indication: Cough and fever; Prior surgery; Surgery type: Central line; Patient HX: Leukemia, pneumonia, covid, cough; Additional info: Cough fever TECHNIQUE: Imaging protocol: XR of the chest. Views: 2 views. COMPARISON: CR (CHEST, ) 11/17/2020 9:56 PM FINDINGS: Tubes, catheters and devices: Tip of right subclavian line at superior cavoatrial junction. Lungs: Extensive bilateral pulmonary consolidation seen on prior x-ray has resolved no new consolidation. Pleural spaces: Unremarkable. No pleural effusion. No pneumothorax. Heart/Mediastinum: Unremarkable. No cardiomegaly. Bones/joints: Unremarkable. XR/XR chest 2V* [id number] IMPRESSION: No acute findings Radiation Dose CTDIVOL = (mGy): DLP = (mGy-cm)
[2021-02-16 14:28] LABS: Lymphocytes # 1.1 10^3/uL (0.8-4.8); Lymphocytes % 36.3 %; Mean Corpuscular HGB Conc 32.4 g/dL (30.0-36.0); Mean Corpuscular Hemoglobin 33.6 pg (28.0-34.0); Mean Platelet Volume 10.6 fL (7.4-10.4); Monocytes # 0.6 10^3/uL (0.2-0.9); Monocytes % 20.3 %; Neutrophils # 1.26 10^3/uL (1.8-7.7); Neutrophils % 42.7 %; Nucleated Red Blood Cells % 0 %; Platelet Count 55 10^3/cmm (130-400); Red Blood Count 3.27 10^6/uL (4.1-5.3); Red Cell Distribution Width 17.8 % (12.1-15.1)
[2021-02-16 14:48] LABS: Alanine Aminotransferase 17 U/L (0-33); Albumin Level 4.2 g/dL (3.5-5.2); Alkaline Phosphatase 89 IU/L (35-105); Aspartate Amino Transferase 28 U/L (0-32); Blood Urea Nitrogen 11 mg/dL (8-23); Calcium 9.2 mg/dL (8.5-10.5); Carbon Dioxide 29 mmol/L (22-29); Chloride 101 mmol/L (98-107); Ferritin 873 ng/mL (15-150); Globulin 2.3 g/dL (1.3-4.6); Glomerular Filtration Rate 158.7 mL/min (90-130); Glucose 74 mg/dL (65-115); Iron 88 ug/dL (37-145); Osmolality Calculated 284 mOsm/kg (285-295); Sodium 138 mmol/L (136-145); Total Bilirubin 0.4 mg/dL (0.15-1.2); Total Iron Binding Capacity 303 mcg/dl; Total Protein 6.5 g/dL (6.6-8.7); Unsaturated Iron Binding 215 ug/dL (112-347)
[2021-02-16 14:49] LABS: Anion Gap 12.1 (5-19); Potassium 4.1 mmol/L (3.5-5.1)
[2021-02-16 15:06] LABS: Folate Level 4.9 ng/mL (4.8-37.3)
[2021-02-16 16:07] LABS: Vitamin B12 < 150 pg/mL (232-1245)
[2021-02-16 18:25] LABS: Lactate Dehydrogenase 244 U/L (135-214)
--- NOTE | 2021-02-20 01:35 | ONC FU_ITS ---
[facility] Patient Note Patient: Eulalia Kaplan Unit #: [id number]: 1950 Dictated By: Mick VasquesDate of Visit: Feb 13, 2021 Onc MED Follow-Up/Prog Note Chief Complaint: Acute myeloid leukemia. History of Present Illness: Ms Kaplan is a 70-year-old woman with acute myeloid leukemia. She had initially presented to Dr. Rosales with extreme fatigue. She was found to have a mild to moderately severe pancytopenia. Her bone marrow aspiration/biopsy on 06/02/2020 showed mildly hypercellularity, estimated at 30 to 50%. There were subtle dyspoietic features noted. Blast enumeration on the aspirate was noted to be challenging due to a paucity of spicules in the sample. Immunohistochemical stains on the biopsy showed strikingly increased CD34 positive blasts estimated at greater than 40 to 50% of the total cells. The appearance was felt to be consistent with acute myeloid leukemia, and with that finding she was referred to [facility] for further management. She was initially seen at [facility] by Dr. Ceferino Tipton on 06/13/2020. Her repeat bone marrow aspiration/biopsy showed acute myeloid leukemia with SRSF2, ASXL1, and RUNX1 mutations. She began treatment with 5-day decitabine in combination with venetoclax 200 mg daily for 28 days on 06/20/2020. She had a hospital admission from 07/16 to 07/22 for febrile neutropenia and suspected fungal pneumonia. Her repeat bone marrow aspiration/biopsy on 07/22/2020 showed complete remission. On 08/08/2020 she proceeded with cycle 3 of 5-day decitabine together with venetoclax 100 mg daily for 21 days. That cycle was complicated by prolonged neutropenia, but without fever or other complications. She had a follow-up visit at [facility] on 09/12/2020, and the following week she proceeded with cycle 4 of decitabine/venetoclax. Subsequent to completing cycle 4 of decitabine/venetoclax, she had developed persistent cough. Her chest x-ray on 09/26/2020 showed streaky opacities at the lung bases, likely to represent atelectasis, though with pneumonia not excluded. The cough persisted, and she eventually developed low-grade fever. At that point she returned to her infectious disease specialist in [place], and in mid October she was confirmed to have COVID-19 virus infection. On 11/18/2019 when she was seen in the emergency room with shortness of breath, fatigue, and fever. She was found to be hypoxic. Her CT pulmonary angiogram showed patchy bilateral groundglass opacities and some consolidation compatible with bilateral interstitial pneumonia. There was no evidence for pulmonary emboli. She was admitted to the hospital for treatment. Her condition improved and she was discharged home on 11/26/2020. During subsequent follow-up, her hemoglobin dropped to 7.7 g, at which point she did receive transfusion of 2 units PRBC. She had follow-up at [facility] on 12/27/2020. She was still recovering from the COVID-19 infection. She was recommended to restart treatment with decitabine/venetoclax as soon as possible. Her medical history is otherwise significant for lichen sclerosis et atrophicus, confirmed by biopsy of the vulva and perineum in January 2019, and for a history of ulcerative colitis, for which she had been on treatment between 1981 in 1995. She also has a history of hyperlipidemia, but she has not required treatment for it. She has anxiety and depression, adequately managed with Lexapro. She is a non-smoker. INTERIM HISTORY: A repeat CT pulmonary angiogram on 01/06/2021 showed no evidence of pulmonary embolus. The previously described diffuse bilateral pulmonary infiltrates were noted to have essentially resolved. There was just a small amount of residual subpleural interstitial thickening. There were moderate to advanced chronic emphysematous changes. As of her follow-up visit on 01/09/2021 she was feeling better, and she was able to continue with cycle 5 of decitabine/venetoclax. Her last dose of decitabine was on 01/13/2021. Ms Kaplan is here today for a follow-up visit. On 01/23/21, she had become severely neutropenic with an ANC of 200, at that point she did start antibiotic prophylaxis with Levaquin. She completed her 21 days of venetoclax on 01/29/2021. Her ANC on 01/30/2021 was 70.0 She has had slow recovery. Her ANC today is 1260 and was 3510 on day 1 of cycle 4. She states she has been feeling good overall. She continues to have limited activity, but she is able to do light work. Her appetite comes and goes. She has not had fever, chills, or sweating. She does report having some difficulty with hearing, which is chronic and no worse than her normal. She states she has not had sinus congestion, sore mouth, or sore throat. She has mild exertional dyspnea, and she is still on oxygen at night. She has only a little bit of cough. She does not complain of chest pain. She has had a little nausea a couple of mornings and she has mild constipation. She has no complaints. She is having some generalized soreness, especially at night. She does not complain of headache or dizziness. She has some numbness in her right hand but states that too is unchanged. She is accompanied by her son and he agrees with her responses. Her ECOG is 1. Past Medical History: Anxiety Depression Hyperlipidemia Lichen sclerosis et atrophicus Ulcerative colitis Covid 19 in 2020 Past Surgical History: Bilateral cataract excisions Caesarean section Covid vaccine Allergies: Amoxicillin, Penicillins, and Sulfa Antibiotics. Medications: Clobetasol Propionate (0.05 %) Cream Topical Take as Directed Levaquin 1 Tablet (of 750 mg) Oral daily for 10 days Lexapro 2 (20 mg) Tablet Oral daily Lisinopril 1 Tablet (of 20 mg) Oral b.i.d. Melatonin 1 (3 mg) Tablet Oral at bedtime Pantoprazole Sodium (20 mg) Tablet, enteric coated Oral daily Family History: Ms. Kaplan's mother at age 82: Dementia. Ms. Kaplan's father at age 83: stroke. Ms. Kaplan has 1 sister who is : lung cancer. Father of stroke at age 83. Mother at age 82 with dementia. She has 2 brothers. One has diabetes and the other has some type of neurological disorder. One sister of lung cancer at age 62. She was a non-smoker. She has 4 living sisters. One has coronary artery disease and has been treated for vulvar cancer. Social History: Ms. Kaplan is . Ms. Kaplan has never smoked. She is a former drinker. She is a non-smoker. She does not drink alcohol. Review Of Symptoms: <See Above> Vital Signs: Performed on Feb 13, 2021 12:09 Height - 62.00 in Weight - 121.4 lbs (LOW) BSA - 1.55 sq.m BMI - 22.20 Temperature - 96.9 F (LOW) Pulse - 63 /min Respiration - 18 /min BP - 182/67 mm(hg) (HIGH) O2 Sat - 98 % Pain - 0 Fatigue - 0,1 - No physically strenuous activity, but ambulatory and able to carry out light or sedentary work (e.g. office work, light house work). (ECOG) Physical Examination: Constitutional Alert, oriented, no acute distress. Skin pink, warm and dry. Head Normocephalic; atraumatic. Eyes Conjunctivae and sclerae are clear and without icterus. Pupils are reactive and equal. Neck Supple without masses or thyromegaly. No jugular venous distension. Hematologic/Lymphatic No petechiae or purpura. No tender or palpable lymph nodes in the cervical or supraclavicular areas. Respiratory Lungs are clear to auscultation without rhonchi or wheezing. Cardiovascular Regular rate and rhythm of heart without murmurs,clicks, gallops or rubs. Abdomen Non-tender, non-distended, no masses or ascites. Good bowel sounds noted in all quads. No guarding or rebound tenderness. No pulsatile masses. Back/Spine Non-tender to palpation. Extremities No visible deformities, no cyanosis, clubbing or edema. Musculoskeletal No tenderness or swelling, normal range of motion without obvious weakness. Integumentary No rashes or lesions. Neurologic No sensory or motor deficits, normal cerebellar function, normal gait. Psychiatric Alert and oriented times three. Coherent speech. Verbalizes understanding of our discussions today. Laboratory:Test performed on Feb 13, 2021 09:40 LDH (Total) 241 U/L Sodium 141 mmol/L Potassium 3.9 mmol/L Chloride 107 mmol/L CO2 26 mmol/L Anion Gap 11.9 BUN 10 mg/dL Creatinine 0.5 mg/dL Cr Clearance (Est) 94.8500 mL/min eGFR 122.7 mL/min Glucose 113 mg/dL Osmolality - Calculated 292 mOsm/kg Calcium 9.0 mg/dL Protein, Total 5.8 g/dL Albumin 3.8 g/dL Globulin 2.0 g/dL Bilirubin, Total 0.3 mg/dL ALT (SGPT) 15 U/L AST (SGOT) 30 U/L Alkaline Phosphatase 86 IU/L WBC 2.1 10 3/uL RBC 3.06 10 6/uL HGB 10.4 g/dL HCT 32.4 % MCV 105.9 fl MCH 34.0 pg MCHC 32.1 g/dL RDW 18.0 % Platelet Count 48 10 3/cmm MPV 11.6 fL Neutrophils 0.71 10 3/uL Lymphocytes 1.0 10 3/uL Monocytes 0.4 10 3/uL Eosinophils 0.0 10 3/uL Basophils 0.0 10 3/uL Neutrophil % 33.2 % Lymphocyte % 45.8 % Monocyte % 20.1 % Eosinophil % 0.0 % Basophils % 0.0 % NRBC % 0 % Test performed on Feb 09, 2021 13:05 CBC Slide Review Slide Review Perform SLIDE REVIEW AGREES WITH AUTOMATED RESULTS Test performed on Jan 19, 2021 00:00 Anti-D Test Not Performed NO SPECIMEN REC Blood Type Test Not Performed NO SPECIMEN REC Antibody Screen (Gel) Test Not Performed NO SPECIMEN REC Test performed on Dec 08, 2020 15:30 Leukocyte Reduced RBC [id number] AP RCLR XM COMPATIBLE Test performed on Nov 01, 2020 16:10 Blood Culture R3 Impression: 1. Acute myeloid leukemia with SRSF2, ASXL1, and RUNX1 mutations. She had presented in May 2020 with pancytopenia and predominant neutropenia. 2. She has been on topical therapy for lichen sclerosis et atrophicus and for a skin eruption on her legs, presumably eczema. 3. Remote history of ulcerative colitis. 4. Hyperlipidemia, not requiring medication. 5. Anxiety/depression. 6. She was diagnosed with COVID-19 virus infection in October 2020. Plan/Problems Addressed at this Visit: Patient with acute myeloid leukemia with SRSF2, ASXL1, and RUNX1 mutations. She began treatment with 5-day decitabine in combination with venetoclax 200 mg daily for 28 days on 06/20/2020. Her repeat bone marrow aspiration/biopsy on 07/22/2020 showed complete remission. On 08/08/2020 she proceeded with cycle 3 of 5-day decitabine together with venetoclax 100 mg daily for 21 days. That cycle was complicated by prolonged neutropenia, but without fever or other complications. She then continued with cycle 4 on 09/19/2020. Subsequent to that treatment she had developed persistent cough and she then developed low-grade fever. In mid October she was confirmed to have COVID-19 virus infection, and on 11/17/2020 she was admitted to the hospital with COVID-19 pneumonia. She has been showing gradual recovery. A repeat CT pulmonary angiogram on 01/06/2021 showed no evidence of pulmonary embolism. The diffuse bilateral pulmonary infiltrates were noted to be essentially resolved. On 01/09/2021 she was able to restart treatment with cycle 5 of 5-day decitabine in combination with venetoclax. She is currently at day 36 of the 5th cycle. She is still neutropenic, but not overtly symptomatic. She will continue antibiotic prophylaxis with Levaquin 500 mg daily as needed (in the event of fever or chills or other signs of infection. and she also will continue prophylaxis with posaconazole and acyclovir. A. Hold decitabine. B. Supportive care as needed. She is slowly recovering as her ANC is 1260 today. Her platelet count is 55,000. Her hemoglobin is 11. C. Today's labs were reviewed with her and her son and a copy was given to them. WBC 2.1, hemoglobin 10.4, platelets 48,000, ANC is 710 creatinine 0.5 LDH is 244 LFTs are normal. I did request an iron/TIBC B12 be added to the blood in lab. Dr. Olive Cantu did request iron studies I did add a B12 as her MCV is elevated at 104. If you are unable to add this to blood in lab we will obtain them on her lab draw on 02/16/2021. D. She will return in 1 week for a repeat CBC. I do not anticipate restarting treatment for 1-2 weeks. E. Ms. Kaplan and her son were encouraged to let us know in the interim should questions or problems arise. F. She was complaining of little shortness of breath today and her son had noted it to. I did send her for chest x-ray just for further evaluation. She was concerned as she had had fungal pneumonia in the past . Her chest x-ray did not show any acute findings and she was notified by phone. Signed By: Mick Vasques-, AOCNP Callum Bradshaw MD <<Signature on File>>
[2021-02-20] MEDS: cyanocobalamin 1,000 mcg/mL SDV 1000 MCG SUBCUT (13:20)
[2021-02-20 14:01] LABS: Basophils % 0.3 %; Hematocrit 36.5 % (37.0-47.0); Hemoglobin 11.7 g/dL (11.5-15.3); Lymphocytes # 1.1 10^3/uL (0.8-4.8); Lymphocytes % 31.6 %; Mean Corpuscular HGB Conc 32.1 g/dL (30.0-36.0); Mean Corpuscular Hemoglobin 33.7 pg (28.0-34.0); Mean Corpuscular Volume 105.2 fl (81-99); Mean Platelet Volume 12.8 fL (7.4-10.4); Monocytes # 0.7 10^3/uL (0.2-0.9); Monocytes % 20.4 %; Neutrophils % 47.4 %; Nucleated Red Blood Cells % 0 %; Platelet Count 73 10^3/cmm (130-400); Red Blood Count 3.47 10^6/uL (4.1-5.3); Red Cell Distribution Width 17.9 % (12.1-15.1); White Blood Count 3.6 10^3/uL (4.0-10.0)
[2021-02-20 14:27] LABS: Alanine Aminotransferase 18 U/L (0-33); Albumin Level 4.4 g/dL (3.5-5.2); Alkaline Phosphatase 99 IU/L (35-105); Anion Gap 15.1 (5-19); Aspartate Amino Transferase 29 U/L (0-32); Blood Urea Nitrogen 13 mg/dL (8-23); Calcium 9.6 mg/dL (8.5-10.5); Carbon Dioxide 26 mmol/L (22-29); Chloride 102 mmol/L (98-107); Globulin 2.7 g/dL (1.3-4.6); Glomerular Filtration Rate 122.7 mL/min (90-130); Glucose 92 mg/dL (65-115); Osmolality Calculated 288 mOsm/kg (285-295); Potassium 4.1 mmol/L (3.5-5.1); Sodium 139 mmol/L (136-145); Total Bilirubin 0.4 mg/dL (0.15-1.2); Total Protein 7.1 g/dL (6.6-8.7)
[2021-02-20 15:07] LABS: Lactate Dehydrogenase 245 U/L (135-214)
[2021-02-20 15:09] LABS: Homocysteine 21.37
[2021-02-23 13:19] LABS: Basophils % 0.2 %; Lymphocytes # 1.1 10^3/uL (0.8-4.8); Mean Corpuscular HGB Conc 32.4 g/dL (30.0-36.0); Mean Corpuscular Hemoglobin 34.2 pg (28.0-34.0); Mean Corpuscular Volume 105.6 fl (81-99); Mean Platelet Volume 11.1 fL (7.4-10.4); Monocytes # 0.6 10^3/uL (0.2-0.9); Monocytes % 13.6 %; Neutrophils # 2.33 10^3/uL (1.8-7.7); Nucleated Red Blood Cells % 0 %; Platelet Count 65 10^3/cmm (130-400); Red Blood Count 3.22 10^6/uL (4.1-5.3); Red Cell Distribution Width 17.1 % (12.1-15.1)
[2021-02-23 13:45] LABS: Alanine Aminotransferase 17 U/L (0-33); Albumin Level 3.9 g/dL (3.5-5.2); Alkaline Phosphatase 89 IU/L (35-105); Blood Urea Nitrogen 9 mg/dL (8-23); Calcium 9.3 mg/dL (8.5-10.5); Carbon Dioxide 28 mmol/L (22-29); Chloride 102 mmol/L (98-107); Globulin 2.3 g/dL (1.3-4.6); Glomerular Filtration Rate 158.7 mL/min (90-130); Glucose 77 mg/dL (65-115); Osmolality Calculated 281 mOsm/kg (285-295); Sodium 137 mmol/L (136-145); Total Bilirubin 0.3 mg/dL (0.15-1.2); Total Protein 6.2 g/dL (6.6-8.7)
[2021-02-23 13:48] LABS: Anion Gap 11.5 (5-19); Aspartate Amino Transferase 29 U/L (0-32); Lactate Dehydrogenase 324 U/L (135-214); Potassium 4.5 mmol/L (3.5-5.1)
[2021-02-23 16:03] LABS: Methylmalonic Acid 665 nmol/L (87-318)
== END 2021-02-26 23:59 | disposition home or self-care (01) ==
LOC: ONCMED 06:16
PROVIDERS: Nurse Practitioner; PCP Internal Medicine; Visit Provider Internal Medicine Medical Oncology
DX: C92.00 Acute myeloblastic leukemia, not having achieved remission (principal); D61.818 Other pancytopenia; D70.4 Cyclic neutropenia; L90.0 Lichen sclerosus et atrophicus; K51.90 Ulcerative colitis, unspecified, without complications; E78.5 Hyperlipidemia, unspecified; F41.9 Anxiety disorder, unspecified; F32.9 Major depressive disorder, single episode, unspecified; Z86.16 Personal history of COVID-19; Z79.899 Other long term (current) drug therapy; Z92.21 Personal history of antineoplastic chemotherapy
CPT/HCPCS: 36591; 36592; 71046; 80053; 82607; 82728; 82746; 83090; 83540; 83550; 83615; 83921; 85025; 96372; 99214; 99215; J3420

== ENCOUNTER 2021-03-28 10:00 | Outpatient (RCR) | payer MEDICARE, SELFPAY ==
[2021-02-27] MEDS: cyanocobalamin 1,000 mcg/mL SDV 1000 MCG SUBCUT (14:44)
[2021-02-27 15:27] LABS: Basophils % 0.2 %; Eosinophils % 0.2 %; Hematocrit 34.5 % (37.0-47.0); Hemoglobin 11.2 g/dL (11.5-15.3); Lymphocytes # 1.3 10^3/uL (0.8-4.8); Mean Corpuscular HGB Conc 32.5 g/dL (30.0-36.0); Mean Corpuscular Hemoglobin 34.5 pg (28.0-34.0); Mean Corpuscular Volume 106.2 fl (81-99); Mean Platelet Volume 12.3 fL (7.4-10.4); Monocytes # 0.7 10^3/uL (0.2-0.9); Monocytes % 13.7 %; Neutrophils # 2.81 10^3/uL (1.8-7.7); Neutrophils % 58.5 %; Nucleated Red Blood Cells % 0 %; Platelet Count 81 10^3/cmm (130-400); Red Blood Count 3.25 10^6/uL (4.1-5.3); Red Cell Distribution Width 16.9 % (12.1-15.1); White Blood Count 4.8 10^3/uL (4.0-10.0)
[2021-03-02 18:19] LABS: Basophils % 0.2 %; Eosinophils % 0.4 %; Hematocrit 35.1 % (37.0-47.0); Hemoglobin 11.2 g/dL (11.5-15.3); Lymphocytes # 1.4 10^3/uL (0.8-4.8); Lymphocytes % 26.4 %; Mean Corpuscular HGB Conc 31.9 g/dL (30.0-36.0); Mean Corpuscular Hemoglobin 34.3 pg (28.0-34.0); Mean Corpuscular Volume 107.3 fl (81-99); Monocytes # 0.6 10^3/uL (0.2-0.9); Monocytes % 11.5 %; Neutrophils # 3.19 10^3/uL (1.8-7.7); Neutrophils % 60.9 %; Nucleated Red Blood Cells % 0 %; Platelet Count 86 10^3/cmm (130-400); Red Blood Count 3.27 10^6/uL (4.1-5.3); Red Cell Distribution Width 17.3 % (12.1-15.1); White Blood Count 5.2 10^3/uL (4.0-10.0)
[2021-03-02 18:41] LABS: Albumin Level 3.8 g/dL (3.5-5.2); Alkaline Phosphatase 99 IU/L (35-105); Blood Urea Nitrogen 11 mg/dL (8-23); Carbon Dioxide 25 mmol/L (22-29); Chloride 101 mmol/L (98-107); Globulin 2.6 g/dL (1.3-4.6); Glomerular Filtration Rate 122.7 mL/min (90-130); Glucose 145 mg/dL (65-115); Osmolality Calculated 284 mOsm/kg (285-295); Sodium 136 mmol/L (136-145); Total Bilirubin 0.3 mg/dL (0.15-1.2); Total Protein 6.4 g/dL (6.6-8.7)
[2021-03-02 18:48] LABS: Alanine Aminotransferase 16 U/L (0-33); Anion Gap 14.2 (5-19); Aspartate Amino Transferase 31 U/L (0-32); Lactate Dehydrogenase 343 U/L (135-214); Potassium 4.2 mmol/L (3.5-5.1)
[2021-03-06] MEDS: cyanocobalamin 1,000 mcg/mL SDV 1000 MCG SUBCUT (15:40)
[2021-03-06 15:58] LABS: Basophils % 0.3 %; Eosinophils # 0.1 10^3/uL (0.0-0.8); Eosinophils % 0.6 %; Hematocrit 33.9 % (37.0-47.0); Lymphocytes # 1.5 10^3/uL (0.8-4.8); Mean Corpuscular HGB Conc 32.4 g/dL (30.0-36.0); Mean Corpuscular Hemoglobin 34.2 pg (28.0-34.0); Mean Corpuscular Volume 105.3 fl (81-99); Mean Platelet Volume 11.7 fL (7.4-10.4); Monocytes # 1.1 10^3/uL (0.2-0.9); Monocytes % 13.7 %; Neutrophils # 5.08 10^3/uL (1.8-7.7); Neutrophils % 65.9 %; Nucleated Red Blood Cells % 0 %; Platelet Count 82 10^3/cmm (130-400); Red Blood Count 3.22 10^6/uL (4.1-5.3); Red Cell Distribution Width 16.7 % (12.1-15.1); White Blood Count 7.7 10^3/uL (4.0-10.0)
--- NOTE | 2021-03-07 12:45 | ONC FU_ITS ---
Dr. Bradshaw Patient Follow-Up Note Patient: Eulalia Kaplan Unit #: [id number]: 1950 Dicatated By: Callum Bradshaw M.D.Date of Visit:Mar 07, 2021 Onc Med Follow-up/Prog Note Chief Complaint: Acute myeloid leukemia. 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 She had initially presented to Dr. Rosales with extreme fatigue. She was found to have a mild to moderately severe pancytopenia. Her bone marrow aspiration/biopsy on 06/02/2020 showed mildly hypercellularity, estimated at 30 to 50%. There were subtle dyspoietic features noted. Blast enumeration on the aspirate was noted to be challenging due to a paucity of spicules in the sample. Immunohistochemical stains on the biopsy showed strikingly increased CD34 positive blasts estimated at greater than 40 to 50% of the total cells. The appearance was felt to be consistent with acute myeloid leukemia, and with that finding she was referred to [facility] for further management. She was initially seen at [facility] by Dr. Ceferino Tipton on 06/13/2020. Her repeat bone marrow aspiration/biopsy showed acute myeloid leukemia with SRSF2, ASXL1, and RUNX1 mutations. She began treatment with 5-day decitabine in combination with venetoclax 200 mg daily for 28 days on 06/20/2020. She had a hospital admission from 07/16 to 07/22 for febrile neutropenia and suspected fungal pneumonia. Her repeat bone marrow aspiration/biopsy on 07/22/2020 showed complete remission. On 08/08/2020 she proceeded with cycle 3 of 5-day decitabine together with venetoclax 100 mg daily for 21 days. That cycle was complicated by prolonged neutropenia, but without fever or other complications. She had a follow-up visit at [facility] on 09/12/2020, and the following week she proceeded with cycle 4 of decitabine/venetoclax. Subsequent to completing cycle 4 of decitabine/venetoclax, she had developed persistent cough. Her chest x-ray on 09/26/2020 showed streaky opacities at the lung bases, likely to represent atelectasis, though with pneumonia not excluded. The cough persisted, and she eventually developed low-grade fever. At that point she returned to her infectious disease specialist in [place], and in mid October she was confirmed to have COVID-19 virus infection. On 11/18/2019 when she was seen in the emergency room with shortness of breath, fatigue, and fever. She was found to be hypoxic. Her CT pulmonary angiogram showed patchy bilateral groundglass opacities and some consolidation compatible with bilateral interstitial pneumonia. There was no evidence for pulmonary emboli. She was admitted to the hospital for treatment. Her condition improved and she was discharged home on 11/26/2020. During subsequent follow-up, her hemoglobin dropped to 7.7 g, at which point she did receive transfusion of 2 units PRBC. She had follow-up at [facility] on 12/27/2020. She was still recovering from the COVID-19 infection. She was recommended to restart treatment with decitabine/venetoclax as soon as possible. Her medical history is otherwise significant for lichen sclerosis et atrophicus, confirmed by biopsy of the vulva and perineum in January 2019, and for a history of ulcerative colitis, for which she had been on treatment between 1981 in 1995. She also has a history of hyperlipidemia, but she has not required treatment for it. She has anxiety and depression, adequately managed with Lexapro. She is a non-smoker. INTERIM HISTORY: A repeat CT pulmonary angiogram on 01/06/2021 showed no evidence of pulmonary embolus. The previously described diffuse bilateral pulmonary infiltrates were noted to have essentially resolved. There was just a small amount of residual subpleural interstitial thickening. There were moderate to advanced chronic emphysematous changes. As of her follow-up visit on 01/09/2021 she was feeling better, and she was able to continue with cycle 5 of decitabine/venetoclax. During subsequent follow-up her hemoglobin/hematocrit levels remained adequate. She did become severely neutropenic with her neftaly ANC <100,at her follow-up visit on 01/30/2021. She did not have fever or other complications, but her further treatment was delayed. Her platelet count nadired at 20,000. With her laboratory studies on 02/16/2021 I have included a B12 level, which came back very low at <150 pg/mL. A subsequent methylmalonic acid level was elevated at 665/318 nmol/L. With that finding, she started B12 replacement with B12 injections weekly. She is seen for a follow-up visit. She has been feeling pretty good generally. Her main complaint is that she has a nagging cough. It starts with just a slight tickle in her throat. She brings up yellow phlegm with it. She has pretty good energy, though she is fatigued by evening. ECOG score is 1. Her appetite is not good in the morning, but it is otherwise fine. She has not had fever. Recently she has started having some night sweating again. She complains that her nose runs. She has not had sore mouth. She has a little bit of sore throat and it sometimes feels like there is a knot in her throat. She does not complain of shortness of breath or chest pain. She has no GI or complaints. She has pain occasionally in her hips and legs. She does not complain of headache or dizziness, and she has no focal neurologic symptoms. She has some bruising, and she also bleeds easily from minor cuts. Medications: Clobetasol Propionate (0.05 %) Cream Topical Take as Directed, Klor-Con 10 1 Tablet (of 10 meq) Tablet, controlled release Oral daily, Levaquin 1 Tablet (of 750 mg) Oral daily for 10 days, Lexapro 2 (20 mg) Tablet Oral daily, Losartan Potassium 1 Tablet (of 50 mg) Oral daily, Melatonin 1 (3 mg) Tablet Oral at bedtime, Pantoprazole Sodium (20 mg) Tablet, enteric coated Oral daily Allergies: Amoxicillin, Penicillins, and Sulfa Antibiotics. Vital Signs: Performed on Mar 07, 2021 12:11 Height - 62.00 in Weight - 122.4 lbs (HIGH) BSA - 1.55 sq.m BMI - 22.39 Temperature - 97.1 F (LOW) Pulse - 66 /min Respiration - 18 /min BP - 159/76 mm(hg) (HIGH) O2 Sat - 96 % Pain - 0 Fatigue - 0 Physical Examination: Constitutional - She looks pretty good generally, Eyes - Sclerae nonicteric. Conjunctivae clear, ENMT - No lesions noted in the oral cavity, Hematologic/Lymphatic - No cervical, clavicular, or axillary adenopathy, Respiratory - Lungs sound clear. She has good air movement bilaterally, Cardiovascular - Heart rhythm is regular. There is a II/ systolic murmur. There is no gallop or rub noted, Abdomen - Soft. Liver and spleen are not enlarged. There is no abdominal mass or ascites noted and there is no inguinal adenopathy, Extremities - No edema. There are scattered purpuric lesions on both arms, Neurologic - No focal neurologic deficits noted. Lab/Imaging: Test performed on Mar 02, 2021 15:45 LDH (Total) 343 U/L Sodium 136 mmol/L Potassium 4.2 mmol/L Chloride 101 mmol/L CO2 25 mmol/L Anion Gap 14.2 BUN 11 mg/dL Creatinine 0.5 mg/dL Cr Clearance (Est) 93.53 mL/min eGFR 122.7 mL/min Glucose 145 mg/dL Osmolality - Calculated 284 mOsm/kg Calcium 9.0 mg/dL Protein, Total 6.4 g/dL Albumin 3.8 g/dL Globulin 2.6 g/dL Bilirubin, Total 0.3 mg/dL ALT (SGPT) 16 U/L AST (SGOT) 31 U/L Alkaline Phosphatase 99 IU/L WBC 5.2 10 3/uL RBC 3.27 10 6/uL HGB 11.2 g/dL HCT 35.1 % MCV 107.3 fl MCH 34.3 pg MCHC 31.9 g/dL RDW 17.3 % Platelet Count 86 10 3/cmm MPV 12.0 fL Neutrophils 3.19 10 3/uL Lymphocytes 1.4 10 3/uL Monocytes 0.6 10 3/uL Eosinophils 0.0 10 3/uL Basophils 0.0 10 3/uL Neutrophil % 60.9 % Lymphocyte % 26.4 % Monocyte % 11.5 % Eosinophil % 0.4 % Basophils % 0.2 % NRBC % 0 % Problem List: 1. Acute myeloid leukemia with SRSF2, ASXL1, and RUNX1 mutations. She had presented in May 2020 with pancytopenia and predominant neutropenia. 2. She has been on topical therapy for lichen sclerosis et atrophicus and for a skin eruption on her legs, presumably eczema. 3. Remote history of ulcerative colitis. 4. Hyperlipidemia, not requiring medication. 5. Anxiety/depression. 6. She was diagnosed with COVID-19 virus infection in October 2020. Problems Addressed with this Encounter and Plan: 1. Patient with acute myeloid leukemia with SRSF2, ASXL1, and RUNX1 mutations. She began treatment with 5-day decitabine in combination with venetoclax 200 mg daily for 28 days on 06/20/2020. Her repeat bone marrow aspiration/biopsy on 07/22/2020 showed complete remission. On 08/08/2020 she proceeded with cycle 3 of 5-day decitabine together with venetoclax 100 mg daily for 21 days. That cycle was complicated by prolonged neutropenia, but without fever or other complications. She then continued with cycle 4 on 09/19/2020. Subsequent to that treatment she had developed persistent cough and she then developed low-grade fever. In mid October she was confirmed to have COVID-19 virus infection, and on 11/17/2020 she was admitted to the hospital with COVID-19 pneumonia. She has been showing gradual recovery. A repeat CT pulmonary angiogram on 01/06/2021 showed no evidence of pulmonary embolism. The diffuse bilateral pulmonary infiltrates were noted to be essentially resolved. On 01/09/2021 she was able to restart treatment with cycle 5 of 5-day decitabine in combination with venetoclax 100 mg daily for 21 days. She again had severe neftaly neutropenia at less than 100. She had uneventful but gradual recovery. She will return next week to begin her 6th cycle of treatment. The dosages will remain the same. Blood counts will be monitored weekly. I will plan a 6-week interval follow-up visit. 2. Her laboratory studies in January included a B12 level, which was very low at <150 pg/mL. Her MMA level was elevated, and she has started on B12 replacement with weekly B12 injections. She is due for her fourth weekly injection next week, and it will then be continued monthly. Signed By: Callum Bradshaw M.D. <<Signature on File>>
[2021-03-09] MEDS: sodium chloride 0.9% 250 ML IV (14:20)
[2021-03-09] MEDS: ondansetron 2 mg/ML SDV 2 mL 8 MG IVP (14:25)
[2021-03-10] MEDS: sodium chloride 0.9% 250 ML IV (10:45)
[2021-03-10] MEDS: ondansetron 2 mg/ML SDV 2 mL 8 MG IVP (10:45)
[2021-03-13] MEDS: sodium chloride 0.9% 250 ML IV (14:36)
[2021-03-13] MEDS: ondansetron 2 mg/ML SDV 2 mL 8 MG IVP (14:36)
[2021-03-13 14:50] LABS: Basophils % 0.2 %; Eosinophils # 0.1 10^3/uL (0.0-0.8); Eosinophils % 0.5 %; Hematocrit 33.4 % (37.0-47.0); Hemoglobin 10.8 g/dL (11.5-15.3); Lymphocytes # 0.9 10^3/uL (0.8-4.8); Mean Corpuscular HGB Conc 32.3 g/dL (30.0-36.0); Mean Platelet Volume 10.6 fL (7.4-10.4); Monocytes # 0.8 10^3/uL (0.2-0.9); Monocytes % 8.6 %; Neutrophils % 79.8 %; Nucleated Red Blood Cells % 0 %; Platelet Count 105 10^3/cmm (130-400); Red Blood Count 3.18 10^6/uL (4.1-5.3); Red Cell Distribution Width 16.3 % (12.1-15.1); White Blood Count 9.3 10^3/uL (4.0-10.0)
[2021-03-13 15:03] LABS: Alanine Aminotransferase 11 U/L (0-33); Albumin Level 3.9 g/dL (3.5-5.2); Alkaline Phosphatase 103 IU/L (35-105); Anion Gap 18.7 (5-19); Aspartate Amino Transferase 17 U/L (0-32); Blood Urea Nitrogen 12 mg/dL (8-23); Calcium 8.9 mg/dL (8.5-10.5); Carbon Dioxide 22 mmol/L (22-29); Chloride 99 mmol/L (98-107); Globulin 3.1 g/dL (1.3-4.6); Glucose 97 mg/dL (65-115); Lactate Dehydrogenase 224 U/L (135-214); Osmolality Calculated 280 mOsm/kg (285-295); Potassium 4.7 mmol/L (3.5-5.1); Sodium 135 mmol/L (136-145); Total Bilirubin 0.4 mg/dL (0.15-1.2)
[2021-03-13] MEDS: cyanocobalamin 1,000 mcg/mL SDV 1000 MCG SUBCUT (15:50)
[2021-03-14] MEDS: ondansetron 2 mg/ML SDV 2 mL 8 MG IVP (14:29)
[2021-03-14] MEDS: sodium chloride 0.9% 250 ML IV (14:29)
[2021-03-15] MEDS: palonosetron 0.25 mg/5 mL SDV IVP (14:40)
[2021-03-15] MEDS: sodium chloride 0.9% 250 ML IV (14:40)
[2021-03-20 15:46] LABS: Basophils % 0.4 %; Hematocrit 26.1 % (37.0-47.0); Hemoglobin 8.6 g/dL (11.5-15.3); Lymphocytes # 0.7 10^3/uL (0.8-4.8); Lymphocytes % 28.9 %; Mean Corpuscular Hemoglobin 34.3 pg (28.0-34.0); Monocytes # 0.2 10^3/uL (0.2-0.9); Monocytes % 10.2 %; Neutrophils # 1.35 10^3/uL (1.8-7.7); Neutrophils % 60.1 %; Nucleated Red Blood Cells % 0 %; Platelet Count 53 10^3/cmm (130-400); Red Blood Count 2.51 10^6/uL (4.1-5.3); Red Cell Distribution Width 15.6 % (12.1-15.1); White Blood Count 2.3 10^3/uL (4.0-10.0)
[2021-03-20 16:10] LABS: Alanine Aminotransferase 11 U/L (0-33); Albumin Level 3.8 g/dL (3.5-5.2); Alkaline Phosphatase 82 IU/L (35-105); Anion Gap 14.8 (5-19); Aspartate Amino Transferase 19 U/L (0-32); Blood Urea Nitrogen 9 mg/dL (8-23); Calcium 9.1 mg/dL (8.5-10.5); Carbon Dioxide 27 mmol/L (22-29); Chloride 100 mmol/L (98-107); Globulin 2.5 g/dL (1.3-4.6); Glomerular Filtration Rate 122.3 mL/min (90-130); Glucose 127 mg/dL (65-115); Lactate Dehydrogenase 191 U/L (135-214); Osmolality Calculated 286 mOsm/kg (285-295); Potassium 3.8 mmol/L (3.5-5.1); Sodium 138 mmol/L (136-145); Total Bilirubin 0.6 mg/dL (0.15-1.2); Total Protein 6.3 g/dL (6.6-8.7)
== END 2021-03-28 23:59 | disposition home or self-care (01) ==
LOC: ONCMED 10:00
PROVIDERS: PCP Internal Medicine; Visit Provider Internal Medicine Medical Oncology
DX: C92.00 Acute myeloblastic leukemia, not having achieved remission (principal); D61.818 Other pancytopenia; D70.2 Other drug-induced agranulocytosis; T45.1X5A Adverse effect of antineoplastic and immunosuppressive drugs, initial encounter; L90.0 Lichen sclerosus et atrophicus; K51.90 Ulcerative colitis, unspecified, without complications; E78.5 Hyperlipidemia, unspecified; F41.9 Anxiety disorder, unspecified; F32.9 Major depressive disorder, single episode, unspecified; Z86.16 Personal history of COVID-19; Z79.899 Other long term (current) drug therapy; Z92.21 Personal history of antineoplastic chemotherapy
CPT/HCPCS: 36592; 80053; 83615; 85025; 96372; 96375; 96413; 99214; J0894; J2405; J2469; J3420; J7050

== ENCOUNTER 2021-04-27 06:17 | Outpatient (RCR) | payer MEDICARE, SELFPAY ==
[2021-03-30 15:58] LABS: Hematocrit 30.4 % (37.0-47.0); Hemoglobin 9.5 g/dL (11.5-15.3); Lymphocytes # 0.9 10^3/uL (0.8-4.8); Lymphocytes % 90.3 %; Mean Corpuscular HGB Conc 31.3 g/dL (30.0-36.0); Mean Corpuscular Hemoglobin 33.5 pg (28.0-34.0); Mean Platelet Volume 9.3 fL (7.4-10.4); Monocytes % 1.9 %; Neutrophils % 7.8 %; Nucleated Red Blood Cells % 0 %; Platelet Count 38 10^3/cmm (130-400); Red Blood Count 2.84 10^6/uL (4.1-5.3)
[2021-03-30 16:23] LABS: Alanine Aminotransferase 11 U/L (0-33); Albumin Level 4.1 g/dL (3.5-5.2); Alkaline Phosphatase 93 IU/L (35-105); Aspartate Amino Transferase 24 U/L (0-32); Blood Urea Nitrogen 9 mg/dL (8-23); Calcium 8.9 mg/dL (8.5-10.5); Carbon Dioxide 28 mmol/L (22-29); Chloride 103 mmol/L (98-107); Globulin 2.4 g/dL (1.3-4.6); Glomerular Filtration Rate 122.3 mL/min (90-130); Glucose 71 mg/dL (65-115); Osmolality Calculated 285 mOsm/kg (285-295); Sodium 139 mmol/L (136-145); Total Bilirubin 0.3 mg/dL (0.15-1.2); Total Protein 6.5 g/dL (6.6-8.7)
[2021-03-30 16:28] LABS: Anion Gap 12.3 (5-19); Potassium 4.3 mmol/L (3.5-5.1)
[2021-03-30 16:29] LABS: Lactate Dehydrogenase 194 U/L (135-214); Neutrophils # 0.08 10^3/uL (1.8-7.7)
[2021-04-03 16:18] LABS: Basophils % 1.3 %; Hematocrit 31.9 % (37.0-47.0); Hemoglobin 10.4 g/dL (11.5-15.3); Lymphocytes # 0.7 10^3/uL (0.8-4.8); Lymphocytes % 88.2 %; Mean Corpuscular HGB Conc 32.6 g/dL (30.0-36.0); Mean Corpuscular Hemoglobin 34.4 pg (28.0-34.0); Mean Corpuscular Volume 105.6 fl (81-99); Monocytes % 3.9 %; Neutrophils % 5.3 %; Nucleated Red Blood Cells % 0 %; Platelet Count 88 10^3/cmm (130-400); Red Blood Count 3.02 10^6/uL (4.1-5.3); Red Cell Distribution Width 16.7 % (12.1-15.1)
[2021-04-03 16:56] LABS: Neutrophils # 0.04 10^3/uL (1.8-7.7); White Blood Count 0.8 10^3/uL (4.0-10.0)
[2021-04-06 14:12] LABS: Basophils % 0.8 %; Hematocrit 32.6 % (37.0-47.0); Hemoglobin 10.4 g/dL (11.5-15.3); Lymphocytes % 73.6 %; Mean Corpuscular HGB Conc 31.9 g/dL (30.0-36.0); Mean Corpuscular Hemoglobin 33.7 pg (28.0-34.0); Mean Corpuscular Volume 105.5 fl (81-99); Mean Platelet Volume 11.7 fL (7.4-10.4); Monocytes # 0.1 10^3/uL (0.2-0.9); Monocytes % 10.1 %; Neutrophils % 14.7 %; Nucleated Red Blood Cells % 0 %; Platelet Count 136 10^3/cmm (130-400); Red Blood Count 3.09 10^6/uL (4.1-5.3); Red Cell Distribution Width 16.9 % (12.1-15.1); White Blood Count 1.3 10^3/uL (4.0-10.0)
[2021-04-06 15:02] LABS: Neutrophils # 0.19 10^3/uL (1.8-7.7); Slide Review Slide Review Perform
[2021-04-10 13:32] LABS: Basophils % 0.4 %; Hematocrit 35.5 % (37.0-47.0); Hemoglobin 11.4 g/dL (11.5-15.3); Lymphocytes # 1.2 10^3/uL (0.8-4.8); Lymphocytes % 42.9 %; Mean Corpuscular HGB Conc 32.1 g/dL (30.0-36.0); Mean Corpuscular Hemoglobin 33.7 pg (28.0-34.0); Mean Platelet Volume 9.5 fL (7.4-10.4); Monocytes # 0.5 10^3/uL (0.2-0.9); Monocytes % 17.2 %; Neutrophils # 1.04 10^3/uL (1.8-7.7); Neutrophils % 38.8 %; Nucleated Red Blood Cells % 0 %; Platelet Count 145 10^3/cmm (130-400); Red Blood Count 3.38 10^6/uL (4.1-5.3); Red Cell Distribution Width 16.7 % (12.1-15.1); White Blood Count 2.7 10^3/uL (4.0-10.0)
[2021-04-13 15:24] LABS: Basophils % 0.3 %; Hematocrit 35.6 % (37.0-47.0); Hemoglobin 11.5 g/dL (11.5-15.3); Lymphocytes # 1.2 10^3/uL (0.8-4.8); Lymphocytes % 34.2 %; Mean Corpuscular HGB Conc 32.3 g/dL (30.0-36.0); Mean Corpuscular Hemoglobin 33.4 pg (28.0-34.0); Mean Corpuscular Volume 103.5 fl (81-99); Mean Platelet Volume 11.9 fL (7.4-10.4); Monocytes # 0.8 10^3/uL (0.2-0.9); Monocytes % 22.9 %; Neutrophils # 1.41 10^3/uL (1.8-7.7); Nucleated Red Blood Cells % 0 %; Platelet Count 113 10^3/cmm (130-400); Red Blood Count 3.44 10^6/uL (4.1-5.3); Red Cell Distribution Width 16.8 % (12.1-15.1); White Blood Count 3.4 10^3/uL (4.0-10.0)
[2021-04-19 11:52] LABS: Basophils % 0.2 %; Hematocrit 34.9 % (37.0-47.0); Hemoglobin 11.2 g/dL (11.5-15.3); Lymphocytes # 1.1 10^3/uL (0.8-4.8); Lymphocytes % 23.7 %; Mean Corpuscular HGB Conc 32.1 g/dL (30.0-36.0); Mean Corpuscular Hemoglobin 33.6 pg (28.0-34.0); Mean Corpuscular Volume 104.8 fl (81-99); Mean Platelet Volume 9.6 fL (7.4-10.4); Monocytes # 0.8 10^3/uL (0.2-0.9); Monocytes % 16.7 %; Neutrophils # 2.71 10^3/uL (1.8-7.7); Nucleated Red Blood Cells % 0 %; Platelet Count 92 10^3/cmm (130-400); Red Blood Count 3.33 10^6/uL (4.1-5.3); Red Cell Distribution Width 16.6 % (12.1-15.1); White Blood Count 4.6 10^3/uL (4.0-10.0)
[2021-04-19 12:15] LABS: Albumin Level 4.3 g/dL (3.5-5.2); Alkaline Phosphatase 92 IU/L (35-105); Blood Urea Nitrogen 10 mg/dL (8-23); Calcium 8.7 mg/dL (8.5-10.5); Carbon Dioxide 23 mmol/L (22-29); Chloride 102 mmol/L (98-107); Globulin 2.7 g/dL (1.3-4.6); Glomerular Filtration Rate 158.3 mL/min (90-130); Glucose 94 mg/dL (65-115); Osmolality Calculated 283 mOsm/kg (285-295); Sodium 137 mmol/L (136-145); Total Bilirubin 0.2 mg/dL (0.15-1.2)
[2021-04-19 12:16] LABS: Alanine Aminotransferase 14 U/L (0-33); Anion Gap 16.5 (5-19); Aspartate Amino Transferase 27 U/L (0-32); Lactate Dehydrogenase 314 U/L (135-214); Potassium 4.5 mmol/L (3.5-5.1)
[2021-04-19 14:39] LABS: Urine Color Yellow (Yellow)
[2021-04-19 14:40] LABS: Bilirubin Urine Neg (Negative); Blood Urine Neg (Negative); Glucose Urine UA Norm (Normal); Ketones Urine Negative (Negative); Leukocyte Esterase Urine Negative (Negative); Nitrate Urine Negative (Negative); Protein Urine Neg (Negative); Specific Gravity, Urine 1.005 (1.005-1.030); Urine Appearance Clear (CLEAR); Urobilinogen Urine Norm (Negative); pH Urine 6.5 (5-7)
[2021-04-19 15:02] LABS: Add Urine Culture? No; RBC Urine RARE /hpf (0-2); WBC Urine RARE /hpf (0-5)
--- NOTE | 2021-04-21 11:09 | ONC FU_ITS ---
Dr. Bradshaw Patient Follow-Up Note Patient: Eulalia Kaplan Unit #: [id number]: 1950 Dicatated By: Callum Bradshaw M.D.Date of Visit:Apr 19, 2021 Onc Med Follow-up/Prog Note Chief Complaint: Acute myeloid leukemia. 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 She had initially presented to Dr. Rosales with extreme fatigue. She was found to have a mild to moderately severe pancytopenia. Her bone marrow aspiration/biopsy on 06/02/2020 showed mildly hypercellularity, estimated at 30 to 50%. There were subtle dyspoietic features noted. Blast enumeration on the aspirate was noted to be challenging due to a paucity of spicules in the sample. Immunohistochemical stains on the biopsy showed strikingly increased CD34 positive blasts estimated at greater than 40 to 50% of the total cells. The appearance was felt to be consistent with acute myeloid leukemia, and with that finding she was referred to [facility] for further management. She was initially seen at [facility] by Dr. Ceferino Tipton on 06/13/2020. Her repeat bone marrow aspiration/biopsy showed acute myeloid leukemia with SRSF2, ASXL1, and RUNX1 mutations. She began treatment with 5-day decitabine in combination with venetoclax 200 mg daily for 28 days on 06/20/2020. She had a hospital admission from 07/16 to 07/22 for febrile neutropenia and suspected fungal pneumonia. Her repeat bone marrow aspiration/biopsy on 07/22/2020 showed complete remission. On 08/08/2020 she proceeded with cycle 3 of 5-day decitabine together with venetoclax 100 mg daily for 21 days. That cycle was complicated by prolonged neutropenia, but without fever or other complications. She had a follow-up visit at [facility] on 09/12/2020, and the following week she proceeded with cycle 4 of decitabine/venetoclax. Subsequent to completing cycle 4 of decitabine/venetoclax, she had developed persistent cough. Her chest x-ray on 09/26/2020 showed streaky opacities at the lung bases, likely to represent atelectasis, though with pneumonia not excluded. The cough persisted, and she eventually developed low-grade fever. At that point she returned to her infectious disease specialist in [place], and in mid October she was confirmed to have COVID-19 virus infection. On 11/18/2019 when she was seen in the emergency room with shortness of breath, fatigue, and fever. She was found to be hypoxic. Her CT pulmonary angiogram showed patchy bilateral groundglass opacities and some consolidation compatible with bilateral interstitial pneumonia. There was no evidence for pulmonary emboli. She was admitted to the hospital for treatment. Her condition improved and she was discharged home on 11/26/2020. During subsequent follow-up, her hemoglobin dropped to 7.7 g, at which point she did receive transfusion of 2 units PRBC. She had follow-up at [facility] on 12/27/2020. She was still recovering from the COVID-19 infection. She was recommended to restart treatment with decitabine/venetoclax as soon as possible. Her medical history is otherwise significant for lichen sclerosis et atrophicus, confirmed by biopsy of the vulva and perineum in January 2019, and for a history of ulcerative colitis, for which she had been on treatment between 1981 in 1995. She also has a history of hyperlipidemia, but she has not required treatment for it. She has anxiety and depression, adequately managed with Lexapro. She is a non-smoker. INTERIM HISTORY: A repeat CT pulmonary angiogram on 01/06/2021 showed no evidence of pulmonary embolus. The previously described diffuse bilateral pulmonary infiltrates were noted to have essentially resolved. There was just a small amount of residual subpleural interstitial thickening. There were moderate to advanced chronic emphysematous changes. As of her follow-up visit on 01/09/2021 she was feeling better, and she was able to continue with cycle 5 of decitabine/venetoclax. During subsequent follow-up her hemoglobin/hematocrit levels remained adequate. She did become severely neutropenic with her neftaly ANC <100,at her follow-up visit on 01/30/2021. She did not have fever or other complications, but her further treatment was delayed. Her platelet count nadired at 20,000. Her laboratory studies on 02/16/2021 included a B12 level, which came back very low at <150 pg/mL. A subsequent methylmalonic acid level was elevated at 665/318 nmol/L. With that finding, she began replacement with B12 injections. She continued with cycle 6 of decitabine/venetoclax on 03/09/2021, and she then had follow-up with Dr. Tipton at [facility] on 03/27/2021. At that time she was complaining of persistent cough, and she also was seen there by her infectious disease specialist. Her chest CT showed some new small foci of consolidation in the right lung and a small amount of airway impaction in the right upper lobe as well as some new areas of tree-in-bud nodularity scattered in both lungs. The findings were felt to be likely infectious/inflammatory, but nonspecific. There was a slight increase in peripheral and basilar predominant mild reticulations with superimposed linear bands in the left upper lobe, thought to be sequelae of Covid infection and resolving organizing pneumonia. With those findings, she was recommended to continue treatment with decitabine/venetoclax, but with the duration of the venetoclax reduced to 14 days. She was recommended to continue with her same prophylaxis. She is seen for a follow-up visit. She has been feeling good generally. She says her energy is okay now. She is doing light work. ECOG score is 1. She has good appetite. She has not had fever, and she says her night sweating is better. She has not had sore mouth or throat. She had seen Dr. Rosales and she was started on an inhaler for her cough, which has now almost completely stopped. She does not complain of shortness of breath or chest pain. She has no GI complaints. She has been having some burning with urination for the past couple of days. She says her joints ache a lot, especially the hips and knees. She does not complain of headache or dizziness, and she has no focal neurologic symptoms. Medications: Clobetasol Propionate (0.05 %) Cream Topical Take as Directed, [place]-Con 10 1 Tablet (of 10 meq) Tablet, controlled release Oral daily, Levaquin 1 Tablet (of 750 mg) Oral daily for 10 days, Lexapro 2 (20 mg) Tablet Oral daily, Losartan Potassium 1 Tablet (of 50 mg) Oral daily, Melatonin 1 (3 mg) Tablet Oral at bedtime, Pantoprazole Sodium (20 mg) Tablet, enteric coated Oral daily Allergies: Adhesive, Amoxicillin, Penicillins, and Sulfa Antibiotics. Vital Signs: Performed on Apr 19, 2021 13:33 Height - 62.00 in Weight - 124.4 lbs (HIGH) BSA - 1.56 sq.m BMI - 22.75 Temperature - 97.5 F (LOW) Pulse - 71 /min Respiration - 16 /min BP - 160/74 mm(hg) (HIGH) O2 Sat - 97 % Pain - 0 Fatigue - 0 Physical Examination: Constitutional - She looks pretty good generally, Eyes - Sclerae nonicteric. Conjunctivae clear, ENMT - No lesions noted in the oral cavity, Hematologic/Lymphatic - No cervical, clavicular, or axillary adenopathy, Respiratory - Lungs sound clear. She has good air movement bilaterally, Cardiovascular - Heart rhythm is regular. There is a II/ systolic murmur. There is no gallop or rub noted, Abdomen - Soft. Liver and spleen are not enlarged. There is no abdominal mass or ascites noted and there is no inguinal adenopathy, Extremities - No edema, Integumentary - The skin on her forearms appears dry and there is some mild associated erythema, Neurologic - No focal neurologic deficits noted. Lab/Imaging: Test performed on Apr 19, 2021 11:42 LDH (Total) 314 U/L Sodium 137 mmol/L Potassium 4.5 mmol/L Chloride 102 mmol/L CO2 23 mmol/L Anion Gap 16.5 BUN 10 mg/dL Creatinine 0.4 mg/dL Cr Clearance (Est) 116.3400 mL/min eGFR 158.3 mL/min Glucose 94 mg/dL Osmolality - Calculated 283 mOsm/kg Calcium 8.7 mg/dL Protein, Total 7.0 g/dL Albumin 4.3 g/dL Globulin 2.7 g/dL Bilirubin, Total 0.2 mg/dL ALT (SGPT) 14 U/L AST (SGOT) 27 U/L Alkaline Phosphatase 92 IU/L WBC 4.6 10 3/uL RBC 3.33 10 6/uL HGB 11.2 g/dL HCT 34.9 % MCV 104.8 fl MCH 33.6 pg MCHC 32.1 g/dL RDW 16.6 % Platelet Count 92 10 3/cmm MPV 9.6 fL Neutrophils 2.71 10 3/uL Lymphocytes 1.1 10 3/uL Monocytes 0.8 10 3/uL Eosinophils 0.0 10 3/uL Basophils 0.0 10 3/uL Neutrophil % 59.0 % Lymphocyte % 23.7 % Monocyte % 16.7 % Eosinophil % 0.0 % Basophils % 0.2 % NRBC % 0 % Problem List: 1. Acute myeloid leukemia with SRSF2, ASXL1, and RUNX1 mutations. She had presented in May 2020 with pancytopenia and predominant neutropenia. 2. She has been on topical therapy for lichen sclerosis et atrophicus and for a skin eruption on her legs, presumably eczema. 3. Remote history of ulcerative colitis. 4. Hyperlipidemia, not requiring medication. 5. Anxiety/depression. 6. She was diagnosed with COVID-19 virus infection in October 2020. Problems Addressed with this Encounter and Plan: 1. Patient with acute myeloid leukemia with SRSF2, ASXL1, and RUNX1 mutations. She began treatment with 5-day decitabine in combination with venetoclax 200 mg daily for 28 days on 06/20/2020. Her repeat bone marrow aspiration/biopsy on 07/22/2020 showed complete remission. On 08/08/2020 she proceeded with cycle 3 of 5-day decitabine together with venetoclax 100 mg daily for 21 days. That cycle was complicated by prolonged neutropenia, but without fever or other complications. She then continued with cycle 4 on 09/19/2020. Subsequent to that treatment she had developed persistent cough and she then developed low-grade fever. In mid October she was confirmed to have COVID-19 virus infection, and on 11/17/2020 she was admitted to the hospital with COVID-19 pneumonia. She had gradual recovery. A repeat CT pulmonary angiogram on 01/06/2021 showed no evidence of pulmonary embolism. The diffuse bilateral pulmonary infiltrates were noted to be essentially resolved. On 01/09/2021 she was able to restart treatment with cycle 5 of 5-day decitabine in combination with venetoclax 100 mg daily for 21 days. She again had severe neftaly neutropenia at less than 100. She had uneventful but gradual recovery. She continued with her 6th cycle treatment on 03/09/2021. During follow-up she had complained of persistent cough, but recently that has improved with an inhaler. She has continued to have treatment related neutropenia and thrombocytopenia, which she has tolerated with no complications. She has had adequate recovery, and she has remained transfusion independent. She will proceed now with cycle 7 of decitabine/venetoclax. Per recommendations from Dr. Tipton the duration of the venetoclax will be reduced to 14 days. Her blood counts will be monitored weekly. At this point we will plan to continue her cycles at 6-week intervals. 2. Her laboratory studies in January included a B12 level, which was very low at <150 pg/mL. Her MMA level was elevated, and she is now on replacement with monthly B12 injections. Signed By: Callum Bradshaw M.D. <<Signature on File>>
[2021-04-24] MEDS: sodium chloride 0.9% 250 ML IV (11:15)
[2021-04-24] MEDS: ondansetron 2 mg/ML SDV 2 mL 8 MG IVP (11:25)
[2021-04-24] MEDS: cyanocobalamin 1,000 mcg/mL SDV 1000 MCG SUBCUT (12:20)
[2021-04-25] MEDS: sodium chloride 0.9% 250 ML IV (10:00)
[2021-04-25] MEDS: ondansetron 2 mg/ML SDV 2 mL 8 MG IVP (10:50)
[2021-04-26] MEDS: sodium chloride 0.9% 250 ML IV (10:50)
[2021-04-26] MEDS: ondansetron 2 mg/ML SDV 2 mL 8 MG IVP (10:50)
[2021-04-27] MEDS: ondansetron 2 mg/ML SDV 2 mL 8 MG IVP (10:45)
[2021-04-27] MEDS: sodium chloride 0.9% 250 ML IV (10:45)
[2021-04-27 10:51] LABS: Basophils % 0.2 %; Eosinophils % 0.4 %; Hematocrit 35.3 % (37.0-47.0); Hemoglobin 11.5 g/dL (11.5-15.3); Lymphocytes # 0.9 10^3/uL (0.8-4.8); Lymphocytes % 17.5 %; Mean Corpuscular HGB Conc 32.6 g/dL (30.0-36.0); Mean Corpuscular Volume 104.4 fl (81-99); Mean Platelet Volume 10.7 fL (7.4-10.4); Monocytes # 0.5 10^3/uL (0.2-0.9); Monocytes % 8.8 %; Neutrophils # 3.78 10^3/uL (1.8-7.7); Neutrophils % 72.5 %; Nucleated Red Blood Cells % 0 %; Platelet Count 91 10^3/cmm (130-400); Red Blood Count 3.38 10^6/uL (4.1-5.3); Red Cell Distribution Width 16.4 % (12.1-15.1); White Blood Count 5.2 10^3/uL (4.0-10.0)
[2021-04-27 11:06] LABS: Alanine Aminotransferase 18 U/L (0-33); Albumin Level 4.3 g/dL (3.5-5.2); Alkaline Phosphatase 87 IU/L (35-105); Blood Urea Nitrogen 11 mg/dL (8-23); Calcium 8.9 mg/dL (8.5-10.5); Carbon Dioxide 27 mmol/L (22-29); Chloride 102 mmol/L (98-107); Globulin 2.7 g/dL (1.3-4.6); Glomerular Filtration Rate 158.3 mL/min (90-130); Glucose 91 mg/dL (65-115); Osmolality Calculated 285 mOsm/kg (285-295); Sodium 138 mmol/L (136-145); Total Bilirubin 0.3 mg/dL (0.15-1.2)
[2021-04-27 11:12] LABS: Anion Gap 13.4 (5-19); Aspartate Amino Transferase 30 U/L (0-32); Lactate Dehydrogenase 300 U/L (135-214); Potassium 4.4 mmol/L (3.5-5.1)
== END 2021-04-28 23:59 | disposition home or self-care (01) ==
LOC: ONCMED 06:17
PROVIDERS: PCP Internal Medicine; Visit Provider Internal Medicine Medical Oncology
DX: Z51.11 Encounter for antineoplastic chemotherapy (principal); C92.00 Acute myeloblastic leukemia, not having achieved remission; D61.818 Other pancytopenia; D70.8 Other neutropenia; L90.0 Lichen sclerosus et atrophicus; E78.5 Hyperlipidemia, unspecified; F41.9 Anxiety disorder, unspecified; F32.9 Major depressive disorder, single episode, unspecified; Z86.16 Personal history of COVID-19; Z87.19 Personal history of other diseases of the digestive system; Z79.899 Other long term (current) drug therapy
CPT/HCPCS: 36592; 80053; 81001; 83615; 85025; 96372; 96375; 96413; 99211; 99214; J0894; J2405; J3420; J7050

== ENCOUNTER 2021-05-29 06:45 | Outpatient (RCR) | payer MEDICARE, SELFPAY ==
[2021-05-01] MEDS: alteplase 1 mg/mL SDV 2 mL 2 MG IV (15:15)
[2021-05-01 16:04] LABS: Basophils % 0.2 %; Eosinophils % 0.3 %; Hematocrit 34.3 % (37.0-47.0); Hemoglobin 11.2 g/dL (11.5-15.3); Lymphocytes # 1.2 10^3/uL (0.8-4.8); Lymphocytes % 18.8 %; Mean Corpuscular HGB Conc 32.7 g/dL (30.0-36.0); Mean Corpuscular Hemoglobin 34.4 pg (28.0-34.0); Mean Corpuscular Volume 105.2 fl (81-99); Mean Platelet Volume 9.5 fL (7.4-10.4); Monocytes # 0.3 10^3/uL (0.2-0.9); Monocytes % 5.4 %; Neutrophils # 4.59 10^3/uL (1.8-7.7); Neutrophils % 75.1 %; Nucleated Red Blood Cells % 0 %; Platelet Count 79 10^3/cmm (130-400); Red Blood Count 3.26 10^6/uL (4.1-5.3); Red Cell Distribution Width 16.1 % (12.1-15.1); White Blood Count 6.1 10^3/uL (4.0-10.0)
[2021-05-08 13:54] LABS: Hematocrit 34.2 % (37.0-47.0); Lymphocytes # 0.8 10^3/uL (0.8-4.8); Lymphocytes % 45.2 %; Mean Corpuscular HGB Conc 32.2 g/dL (30.0-36.0); Mean Corpuscular Hemoglobin 33.8 pg (28.0-34.0); Mean Corpuscular Volume 105.2 fl (81-99); Monocytes # 0.3 10^3/uL (0.2-0.9); Monocytes % 19.3 %; Neutrophils % 35.5 %; Nucleated Red Blood Cells % 0 %; Platelet Count 32 10^3/cmm (130-400); Red Blood Count 3.25 10^6/uL (4.1-5.3); Red Cell Distribution Width 16.1 % (12.1-15.1); White Blood Count 1.7 10^3/uL (4.0-10.0)
[2021-05-08 14:02] LABS: Neutrophils # 0.59 10^3/uL (1.8-7.7)
[2021-05-15 14:00] LABS: Basophils % 0.7 %; Hematocrit 33.1 % (37.0-47.0); Hemoglobin 10.7 g/dL (11.5-15.3); Lymphocytes # 0.7 10^3/uL (0.8-4.8); Lymphocytes % 50.4 %; Mean Corpuscular HGB Conc 32.3 g/dL (30.0-36.0); Mean Corpuscular Hemoglobin 34.1 pg (28.0-34.0); Mean Corpuscular Volume 105.4 fl (81-99); Monocytes # 0.1 10^3/uL (0.2-0.9); Monocytes % 4.4 %; Neutrophils % 44.5 %; Nucleated Red Blood Cells % 0 %; Platelet Count 45 10^3/cmm (130-400); Red Blood Count 3.14 10^6/uL (4.1-5.3); Red Cell Distribution Width 16.8 % (12.1-15.1); White Blood Count 1.4 10^3/uL (4.0-10.0)
[2021-05-22 14:10] LABS: Basophils % 0.7 %; Hematocrit 35.2 % (37.0-47.0); Hemoglobin 11.2 g/dL (11.5-15.3); Lymphocytes # 1.1 10^3/uL (0.8-4.8); Lymphocytes % 38.2 %; Mean Corpuscular HGB Conc 31.8 g/dL (30.0-36.0); Mean Corpuscular Hemoglobin 33.6 pg (28.0-34.0); Mean Corpuscular Volume 105.7 fl (81-99); Monocytes # 0.3 10^3/uL (0.2-0.9); Monocytes % 11.3 %; Neutrophils # 1.35 10^3/uL (1.8-7.7); Neutrophils % 49.1 %; Nucleated Red Blood Cells % 0 %; Platelet Count 159 10^3/cmm (130-400); Red Blood Count 3.33 10^6/uL (4.1-5.3); Red Cell Distribution Width 16.7 % (12.1-15.1); White Blood Count 2.8 10^3/uL (4.0-10.0)
[2021-05-29 13:26] LABS: Basophils % 0.2 %; Eosinophils % 0.2 %; Hematocrit 35.9 % (37.0-47.0); Hemoglobin 11.3 g/dL (11.5-15.3); Lymphocytes # 1.4 10^3/uL (0.8-4.8); Mean Corpuscular HGB Conc 31.5 g/dL (30.0-36.0); Mean Corpuscular Hemoglobin 32.6 pg (28.0-34.0); Mean Corpuscular Volume 103.5 fl (81-99); Mean Platelet Volume 11.2 fL (7.4-10.4); Monocytes # 0.6 10^3/uL (0.2-0.9); Monocytes % 13.1 %; Neutrophils # 2.33 10^3/uL (1.8-7.7); Neutrophils % 53.8 %; Nucleated Red Blood Cells % 0 %; Platelet Count 107 10^3/cmm (130-400); Red Blood Count 3.47 10^6/uL (4.1-5.3); Red Cell Distribution Width 16.2 % (12.1-15.1); White Blood Count 4.3 10^3/uL (4.0-10.0)
== END 2021-05-29 23:59 | disposition home or self-care (01) ==
LOC: ONCMED 06:45
PROVIDERS: PCP Internal Medicine; Visit Provider Internal Medicine Medical Oncology
DX: C92.01 Acute myeloblastic leukemia, in remission (principal); D61.818 Other pancytopenia; Z79.899 Other long term (current) drug therapy
CPT/HCPCS: 36592; 85025; 96372; 96374; 99211; J1642; J2997

== ENCOUNTER 2021-06-20 12:53 | Outpatient (RCR) | payer MEDICARE, SELFPAY ==
[2021-06-05 10:39] LABS: Basophils % 0.4 %; Eosinophils % 0.4 %; Hematocrit 36.7 % (37.0-47.0); Hemoglobin 11.6 g/dL (11.5-15.3); Lymphocytes # 1.2 10^3/uL (0.8-4.8); Lymphocytes % 22.2 %; Mean Corpuscular HGB Conc 31.6 g/dL (30.0-36.0); Mean Corpuscular Hemoglobin 32.5 pg (28.0-34.0); Mean Corpuscular Volume 102.8 fl (81-99); Mean Platelet Volume 10.2 fL (7.4-10.4); Monocytes # 0.7 10^3/uL (0.2-0.9); Monocytes % 13.4 %; Neutrophils # 3.44 10^3/uL (1.8-7.7); Nucleated Red Blood Cells % 0 %; Platelet Count 73 10^3/cmm (130-400); Red Blood Count 3.57 10^6/uL (4.1-5.3); Red Cell Distribution Width 16.7 % (12.1-15.1); White Blood Count 5.5 10^3/uL (4.0-10.0)
[2021-06-05 11:15] LABS: Alanine Aminotransferase 18 U/L (0-33); Albumin Level 4.4 g/dL (3.5-5.2); Alkaline Phosphatase 103 IU/L (35-105); Blood Urea Nitrogen 14 mg/dL (8-23); Calcium 9.1 mg/dL (8.5-10.5); Carbon Dioxide 27 mmol/L (22-29); Chloride 101 mmol/L (98-107); Globulin 2.5 g/dL (1.3-4.6); Glomerular Filtration Rate 122.3 mL/min (90-130); Glucose 100 mg/dL (65-115); Osmolality Calculated 289 mOsm/kg (285-295); Sodium 139 mmol/L (136-145); Total Bilirubin 0.3 mg/dL (0.15-1.2); Total Protein 6.9 g/dL (6.6-8.7)
[2021-06-05 11:26] LABS: Anion Gap 15.3 (5-19); Aspartate Amino Transferase 31 U/L (0-32); Lactate Dehydrogenase 287 U/L (135-214); Potassium 4.3 mmol/L (3.5-5.1)
[2021-06-05] MEDS: sodium chloride 0.9% 250 ML IV (12:00)
[2021-06-05] MEDS: ondansetron 2 mg/ML SDV 2 mL 8 MG IVP (12:15)
[2021-06-05] MEDS: cyanocobalamin 1,000 mcg/mL SDV 1000 MCG SUBCUT (12:20)
[2021-06-06] MEDS: sodium chloride 0.9% 250 ML IV (13:26)
[2021-06-06] MEDS: ondansetron 2 mg/ML SDV 2 mL 8 MG IVP (13:26)
[2021-06-07] MEDS: ondansetron 2 mg/ML SDV 2 mL 8 MG IVP (13:15)
[2021-06-07] MEDS: sodium chloride 0.9% 250 ML IV (13:30)
[2021-06-08] MEDS: sodium chloride 0.9% 250 ML IV (13:10)
[2021-06-08] MEDS: ondansetron 2 mg/ML SDV 2 mL 8 MG IVP (13:15)
[2021-06-09] MEDS: alteplase 1 mg/mL SDV 2 mL 2 MG IV (10:40)
[2021-06-09] MEDS: palonosetron 0.25 mg/5 mL SDV IVP (10:55)
[2021-06-09] MEDS: sodium chloride 0.9% 250 ML IV (10:55)
--- NOTE | 2021-06-09 14:58 | ONC FU_ITS ---
Dr. Bradshaw Patient Follow-Up Note Patient: Eulalia Kaplan Unit #: [id number]: 1950 Dicatated By: Callum Bradshaw M.D.Date of Visit:Jun 05, 2021 Onc Med Follow-up/Prog Note Chief Complaint: Acute myeloid leukemia. 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 She had initially presented to Dr. Rosales with extreme fatigue. She was found to have a mild to moderately severe pancytopenia. Her bone marrow aspiration/biopsy on 06/02/2020 showed mildly hypercellularity, estimated at 30 to 50%. There were subtle dyspoietic features noted. Blast enumeration on the aspirate was noted to be challenging due to a paucity of spicules in the sample. Immunohistochemical stains on the biopsy showed strikingly increased CD34 positive blasts estimated at greater than 40 to 50% of the total cells. The appearance was felt to be consistent with acute myeloid leukemia, and with that finding she was referred to [facility] for further management. She was initially seen at [facility] by Dr. Ceferino Tipton on 06/13/2020. Her repeat bone marrow aspiration/biopsy showed acute myeloid leukemia with SRSF2, ASXL1, and RUNX1 mutations. She began treatment with 5-day decitabine in combination with venetoclax 200 mg daily for 28 days on 06/20/2020. She had a hospital admission from 07/16 to 07/22 for febrile neutropenia and suspected fungal pneumonia. Her repeat bone marrow aspiration/biopsy on 07/22/2020 showed complete remission. On 08/08/2020 she proceeded with cycle 3 of 5-day decitabine together with venetoclax 100 mg daily for 21 days. That cycle was complicated by prolonged neutropenia, but without fever or other complications. She had a follow-up visit at [facility] on 09/12/2020, and the following week she proceeded with cycle 4 of decitabine/venetoclax. Subsequent to completing cycle 4 of decitabine/venetoclax, she had developed persistent cough. Her chest x-ray on 09/26/2020 showed streaky opacities at the lung bases, likely to represent atelectasis, though with pneumonia not excluded. The cough persisted, and she eventually developed low-grade fever. At that point she returned to her infectious disease specialist in [place], and in mid October she was confirmed to have COVID-19 virus infection. On 11/18/2019 when she was seen in the emergency room with shortness of breath, fatigue, and fever. She was found to be hypoxic. Her CT pulmonary angiogram showed patchy bilateral groundglass opacities and some consolidation compatible with bilateral interstitial pneumonia. There was no evidence for pulmonary emboli. She was admitted to the hospital for treatment. Her condition improved and she was discharged home on 11/26/2020. During subsequent follow-up, her hemoglobin dropped to 7.7 g, at which point she did receive transfusion of 2 units PRBC. She had follow-up at [facility] on 12/27/2020. She was still recovering from the COVID-19 infection. She was recommended to restart treatment with decitabine/venetoclax as soon as possible. Her medical history is otherwise significant for lichen sclerosis et atrophicus, confirmed by biopsy of the vulva and perineum in January 2019, and for a history of ulcerative colitis, for which she had been on treatment between 1981 in 1995. She also has a history of hyperlipidemia, but she has not required treatment for it. She has anxiety and depression, adequately managed with Lexapro. She is a non-smoker. INTERIM HISTORY: A repeat CT pulmonary angiogram on 01/06/2021 showed no evidence of pulmonary embolus. The previously described diffuse bilateral pulmonary infiltrates were noted to have essentially resolved. There was just a small amount of residual subpleural interstitial thickening. There were moderate to advanced chronic emphysematous changes. As of her follow-up visit on 01/09/2021 she was feeling better, and she was able to continue with cycle 5 of decitabine/venetoclax. During subsequent follow-up her hemoglobin/hematocrit levels remained adequate. She did become severely neutropenic with her neftaly ANC <100,at her follow-up visit on 01/30/2021. She did not have fever or other complications, but her further treatment was delayed. Her platelet count nadired at 20,000. Her laboratory studies on 02/16/2021 included a B12 level, which came back very low at <150 pg/mL. A subsequent methylmalonic acid level was elevated at 665/318 nmol/L. With that finding, she began replacement with B12 injections. She continued with cycle 6 of decitabine/venetoclax on 03/09/2021, and she then had follow-up with Dr. Tipton at [facility] on 03/27/2021. At that time she was complaining of persistent cough, and she also was seen there by her infectious disease specialist. Her chest CT showed some new small foci of consolidation in the right lung and a small amount of airway impaction in the right upper lobe as well as some new areas of tree-in-bud nodularity scattered in both lungs. The findings were felt to be likely infectious/inflammatory, but nonspecific. There was a slight increase in peripheral and basilar predominant mild reticulations with superimposed linear bands in the left upper lobe, thought to be sequelae of Covid infection and resolving organizing pneumonia. With those findings, she was recommended to continue treatment with decitabine/venetoclax, but with the duration of the venetoclax reduced to 14 days. She was recommended to continue with her same prophylaxis. She began cycle 7 on 04/24/2021. She is seen for a follow-up visit. She has been feeling good generally. She noted significant improvement in her energy after her last B12 injection. She says she has normal activity now. ECOG score is 0. She has good appetite. She has not had fever. She occasionally has a little bit of sweating at night. She has not had sore mouth or throat. She does have cough, but it has improved significantly with a Breo inhaler. She does not complain of shortness of breath or chest pain. She has no GI or complaints. She has some new arthritis pain in her right thumb. She has no other joint or bone pain. She does not complain of headache or dizziness. She also reports having some numbness in her right thumb, but she has no other focal neurologic symptoms. Medications: Breo Ellipta Aerosol Powder, Breath Activated Inhalation daily, Clobetasol Propionate (0.05 %) Cream Topical Take as Directed, Klor-Con 10 1 Tablet (of 10 meq) Tablet, controlled release Oral daily, Levaquin 1 Tablet (of 750 mg) Oral daily for 10 days, Lexapro 2 (20 mg) Tablet Oral daily, Losartan Potassium 1 Tablet (of 50 mg) Oral daily, Melatonin 1 (3 mg) Tablet Oral at bedtime, Pantoprazole Sodium (20 mg) Tablet, enteric coated Oral daily Allergies: Adhesive, Amoxicillin, Penicillins, and Sulfa Antibiotics. Vital Signs: Performed on Jun 05, 2021 13:48 Height - 62.00 in Weight - 126 lbs (HIGH) BSA - 1.57 sq.m BMI - 23.05 Temperature - 97.9 F (LOW) Pulse - 72 /min Respiration - 16 /min BP - 181/76 mm(hg) (HIGH) O2 Sat - 98 % Pain - 0 Fatigue - 0 Physical Examination: Constitutional - She looks pretty good generally, Eyes - Sclerae nonicteric. Conjunctivae clear, ENMT - No lesions noted in the oral cavity, Hematologic/Lymphatic - No cervical, clavicular, or axillary adenopathy, Respiratory - Lungs sound clear. She has good air movement bilaterally, Cardiovascular - Heart rhythm is regular. There is a II/ systolic murmur. There is no gallop or rub noted, Abdomen - Soft. Liver and spleen are not enlarged. There is no abdominal mass or ascites noted and there is no inguinal adenopathy, Extremities - No edema. There are purpuric lesions on both arms, Neurologic - No focal neurologic deficits noted. Lab/Imaging: Test performed on Jun 05, 2021 10:13 LDH (Total) 287 U/L Sodium 139 mmol/L Potassium 4.3 mmol/L Chloride 101 mmol/L CO2 27 mmol/L Anion Gap 15.3 BUN 14 mg/dL Creatinine 0.5 mg/dL Cr Clearance (Est) 93.0700 mL/min eGFR 122.3 mL/min Glucose 100 mg/dL Osmolality - Calculated 289 mOsm/kg Calcium 9.1 mg/dL Protein, Total 6.9 g/dL Albumin 4.4 g/dL Globulin 2.5 g/dL Bilirubin, Total 0.3 mg/dL ALT (SGPT) 18 U/L AST (SGOT) 31 U/L Alkaline Phosphatase 103 IU/L WBC 5.5 10 3/uL RBC 3.57 10 6/uL HGB 11.6 g/dL HCT 36.7 % MCV 102.8 fl MCH 32.5 pg MCHC 31.6 g/dL RDW 16.7 % Platelet Count 73 10 3/cmm MPV 10.2 fL Neutrophils 3.44 10 3/uL Lymphocytes 1.2 10 3/uL Monocytes 0.7 10 3/uL Eosinophils 0.0 10 3/uL Basophils 0.0 10 3/uL Neutrophil % 63.0 % Lymphocyte % 22.2 % Monocyte % 13.4 % Eosinophil % 0.4 % Basophils % 0.4 % NRBC % 0 % Problem List: 1. Acute myeloid leukemia with SRSF2, ASXL1, and RUNX1 mutations. She had presented in May 2020 with pancytopenia and predominant neutropenia. 2. She has been on topical therapy for lichen sclerosis et atrophicus and for a skin eruption on her legs, presumably eczema. 3. Remote history of ulcerative colitis. 4. Hyperlipidemia, not requiring medication. 5. Anxiety/depression. 6. She was diagnosed with COVID-19 virus infection in October 2020. Problems Addressed with this Encounter and Plan: 1. Patient with acute myeloid leukemia with SRSF2, ASXL1, and RUNX1 mutations. She began treatment with 5-day decitabine in combination with venetoclax 200 mg daily for 28 days on 06/20/2020. Her repeat bone marrow aspiration/biopsy on 07/22/2020 showed complete remission. On 08/08/2020 she proceeded with cycle 3 of 5-day decitabine together with venetoclax 100 mg daily for 21 days. That cycle was complicated by prolonged neutropenia, but without fever or other complications. She then continued with cycle 4 on 09/19/2020. Subsequent to that treatment she had developed persistent cough and she then developed low-grade fever. In mid October she was confirmed to have COVID-19 virus infection, and on 11/17/2020 she was admitted to the hospital with COVID-19 pneumonia. She had gradual recovery. A repeat CT pulmonary angiogram on 01/06/2021 showed no evidence of pulmonary embolism. The diffuse bilateral pulmonary infiltrates were noted to be essentially resolved. On 01/09/2021 she was able to restart treatment with cycle 5 of 5-day decitabine in combination with venetoclax 100 mg daily for 21 days. She again had severe neftaly neutropenia at less than 100. She had uneventful but gradual recovery. She continued with her 6th cycle treatment on 03/09/2021. During follow-up she had complained of persistent cough, but recently that has improved with an inhaler. She has continued to have treatment related neutropenia and thrombocytopenia, which she has tolerated with no complications. Beginning with cycle 7 on 04/24/2021 the duration of the venetoclax was reduced to 14 days. At this point she appears to be tolerating the treatment well, and she is doing very well clinically. She will proceed now with cycle 8 of 5-day decitabine and combination with venetoclax 100 mg daily for 14 days. I will continue to monitor blood counts weekly. She will have a scheduled follow-up visit in 6 weeks. 2. Her laboratory studies in January 2021 included a B12 level, which was very low at <150 pg/mL. Her MMA level was elevated, and she continues on replacement B12 injections. Signed By: Callum Bradshaw M.D. <<Signature on File>>
[2021-06-12 16:00] LABS: Basophils % 0.2 %; Eosinophils % 0.4 %; Hematocrit 36.3 % (37.0-47.0); Hemoglobin 11.3 g/dL (11.5-15.3); Lymphocytes % 19.3 %; Mean Corpuscular HGB Conc 31.1 g/dL (30.0-36.0); Mean Corpuscular Hemoglobin 32.6 pg (28.0-34.0); Mean Corpuscular Volume 104.6 fl (81-99); Monocytes # 0.2 10^3/uL (0.2-0.9); Monocytes % 4.2 %; Neutrophils # 3.96 10^3/uL (1.8-7.7); Neutrophils % 75.5 %; Nucleated Red Blood Cells % 0 %; Platelet Count 55 10^3/cmm (130-400); Red Blood Count 3.47 10^6/uL (4.1-5.3); Red Cell Distribution Width 16.5 % (12.1-15.1); White Blood Count 5.2 10^3/uL (4.0-10.0)
[2021-06-19] MEDS: cyanocobalamin 1,000 mcg/mL SDV 1000 MCG SUBCUT (14:35)
[2021-06-19 14:40] LABS: Hematocrit 33.2 % (37.0-47.0); Hemoglobin 10.8 g/dL (11.5-15.3); Lymphocytes # 0.9 10^3/uL (0.8-4.8); Lymphocytes % 62.9 %; Mean Corpuscular HGB Conc 32.5 g/dL (30.0-36.0); Mean Corpuscular Hemoglobin 33.6 pg (28.0-34.0); Mean Corpuscular Volume 103.4 fl (81-99); Monocytes # 0.2 10^3/uL (0.2-0.9); Monocytes % 11.9 %; Neutrophils % 25.2 %; Nucleated Red Blood Cells % 0 %; Red Blood Count 3.21 10^6/uL (4.1-5.3); Red Cell Distribution Width 16.8 % (12.1-15.1); White Blood Count 1.4 10^3/uL (4.0-10.0)
[2021-06-19 15:22] LABS: Slide Review Slide Review Perform
[2021-06-19 15:23] LABS: Neutrophils # 0.36 10^3/uL (1.8-7.7); Platelet Count 20 10^3/cmm (130-400)
[2021-06-20 13:56] LABS: Hematocrit 34.8 % (37.0-47.0); Hemoglobin 11.2 g/dL (11.5-15.3); Lymphocytes # 1.1 10^3/uL (0.8-4.8); Lymphocytes % 65.3 %; Mean Corpuscular HGB Conc 32.2 g/dL (30.0-36.0); Mean Corpuscular Hemoglobin 32.9 pg (28.0-34.0); Mean Corpuscular Volume 102.4 fl (81-99); Monocytes # 0.2 10^3/uL (0.2-0.9); Monocytes % 13.3 %; Neutrophils % 21.4 %; Nucleated Red Blood Cells % 0 %; Red Cell Distribution Width 16.7 % (12.1-15.1); White Blood Count 1.7 10^3/uL (4.0-10.0)
[2021-06-20 14:25] LABS: Slide Review Slide Review Perform
[2021-06-20 14:29] LABS: Neutrophils # 0.37 10^3/uL (1.8-7.7); Platelet Count 21 10^3/cmm (130-400)
== END 2021-06-26 23:59 | disposition home or self-care (01) ==
LOC: ONCMED 12:53
PROVIDERS: PCP Internal Medicine; Visit Provider Internal Medicine Medical Oncology
DX: Z51.11 Encounter for antineoplastic chemotherapy (principal); C92.00 Acute myeloblastic leukemia, not having achieved remission; D61.818 Other pancytopenia; D70.9 Neutropenia, unspecified; L90.0 Lichen sclerosus et atrophicus; K51.90 Ulcerative colitis, unspecified, without complications; E78.5 Hyperlipidemia, unspecified; F41.9 Anxiety disorder, unspecified; F32.9 Major depressive disorder, single episode, unspecified; Z86.16 Personal history of COVID-19; Z79.899 Other long term (current) drug therapy
CPT/HCPCS: 36592; 36593; 80053; 83615; 85025; 96372; 96375; 96413; 99211; 99215; J0894; J2405; J2469; J2997; J3420; J7050

== ENCOUNTER 2021-07-27 06:42 | Outpatient (RCR) | payer MEDICARE, SELFPAY ==
[2021-07-03 14:12] LABS: Basophils % 0.6 %; Hematocrit 35.5 % (37.0-47.0); Hemoglobin 11.5 g/dL (11.5-15.3); Lymphocytes # 1.2 10^3/uL (0.8-4.8); Lymphocytes % 66.5 %; Mean Corpuscular HGB Conc 32.4 g/dL (30.0-36.0); Mean Corpuscular Hemoglobin 33.2 pg (28.0-34.0); Mean Corpuscular Volume 102.6 fl (81-99); Monocytes # 0.2 10^3/uL (0.2-0.9); Monocytes % 11.9 %; Nucleated Red Blood Cells % 0 %; Platelet Count 103 10^3/cmm (130-400); Red Blood Count 3.46 10^6/uL (4.1-5.3); Red Cell Distribution Width 17.3 % (12.1-15.1); White Blood Count 1.8 10^3/uL (4.0-10.0)
[2021-07-03] MEDS: cyanocobalamin 1,000 mcg/mL SDV 1000 MCG SUBCUT (14:15)
[2021-07-03 14:24] LABS: Neutrophils # 0.37 10^3/uL (1.8-7.7)
[2021-07-10 14:36] LABS: Basophils % 0.5 %; Hematocrit 36.5 % (37.0-47.0); Hemoglobin 11.7 g/dL (11.5-15.3); Lymphocytes # 1.3 10^3/uL (0.8-4.8); Lymphocytes % 32.7 %; Mean Corpuscular HGB Conc 32.1 g/dL (30.0-36.0); Mean Corpuscular Volume 102.8 fl (81-99); Mean Platelet Volume 11.6 fL (7.4-10.4); Monocytes # 0.7 10^3/uL (0.2-0.9); Monocytes % 18.7 %; Neutrophils # 1.83 10^3/uL (1.8-7.7); Neutrophils % 47.6 %; Nucleated Red Blood Cells % 0 %; Platelet Count 79 10^3/cmm (130-400); Red Blood Count 3.55 10^6/uL (4.1-5.3); White Blood Count 3.9 10^3/uL (4.0-10.0)
[2021-07-17 15:28] LABS: Basophils % 0.2 %; Eosinophils % 0.2 %; Hematocrit 35.5 % (37.0-47.0); Hemoglobin 11.6 g/dL (11.5-15.3); Lymphocytes # 1.2 10^3/uL (0.8-4.8); Lymphocytes % 28.1 %; Mean Corpuscular HGB Conc 32.7 g/dL (30.0-36.0); Mean Corpuscular Hemoglobin 33.1 pg (28.0-34.0); Mean Corpuscular Volume 101.4 fl (81-99); Monocytes # 0.7 10^3/uL (0.2-0.9); Monocytes % 15.8 %; Neutrophils # 2.44 10^3/uL (1.8-7.7); Neutrophils % 55.2 %; Nucleated Red Blood Cells % 0 %; Platelet Count 58 10^3/cmm (130-400); Red Cell Distribution Width 17.2 % (12.1-15.1); White Blood Count 4.4 10^3/uL (4.0-10.0)
--- NOTE | 2021-07-21 17:24 | ONC FU_ITS ---
Dr. Bradshaw Patient Follow-Up Note Patient: Eulalia Kaplan Unit #: [id number]: 1950 Dicatated By: Callum Bradshaw M.D.Date of Visit:Jul 17, 2021 Onc Med Follow-up/Prog Note Chief Complaint: Acute myeloid leukemia. 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 She had initially presented to Dr. Rosales with extreme fatigue. She was found to have a mild to moderately severe pancytopenia. Her bone marrow aspiration/biopsy on 06/02/2020 showed mildly hypercellularity, estimated at 30 to 50%. There were subtle dyspoietic features noted. Blast enumeration on the aspirate was noted to be challenging due to a paucity of spicules in the sample. Immunohistochemical stains on the biopsy showed strikingly increased CD34 positive blasts estimated at greater than 40 to 50% of the total cells. The appearance was felt to be consistent with acute myeloid leukemia, and with that finding she was referred to [facility] for further management. She was initially seen at [facility] by Dr. Ceferino Tipton on 06/13/2020. Her repeat bone marrow aspiration/biopsy showed acute myeloid leukemia with SRSF2, ASXL1, and RUNX1 mutations. She began treatment with 5-day decitabine in combination with venetoclax 200 mg daily for 28 days on 06/20/2020. She had a hospital admission from 07/16 to 07/22 for febrile neutropenia and suspected fungal pneumonia. Her repeat bone marrow aspiration/biopsy on 07/22/2020 showed complete remission. On 08/08/2020 she proceeded with cycle 3 of 5-day decitabine together with venetoclax 100 mg daily for 21 days. That cycle was complicated by prolonged neutropenia, but without fever or other complications. She had a follow-up visit at [facility] on 09/12/2020, and the following week she proceeded with cycle 4 of decitabine/venetoclax. Subsequent to completing cycle 4 of decitabine/venetoclax, she had developed persistent cough. Her chest x-ray on 09/26/2020 showed streaky opacities at the lung bases, likely to represent atelectasis, though with pneumonia not excluded. The cough persisted, and she eventually developed low-grade fever. At that point she returned to her infectious disease specialist in [place], and in mid October she was confirmed to have COVID-19 virus infection. On 11/18/2019 when she was seen in the emergency room with shortness of breath, fatigue, and fever. She was found to be hypoxic. Her CT pulmonary angiogram showed patchy bilateral groundglass opacities and some consolidation compatible with bilateral interstitial pneumonia. There was no evidence for pulmonary emboli. She was admitted to the hospital for treatment. Her condition improved and she was discharged home on 11/26/2020. During subsequent follow-up, her hemoglobin dropped to 7.7 g, at which point she did receive transfusion of 2 units PRBC. She had follow-up at [facility] on 12/27/2020. She was still recovering from the COVID-19 infection. She was recommended to restart treatment with decitabine/venetoclax as soon as possible. Her medical history is otherwise significant for lichen sclerosis et atrophicus, confirmed by biopsy of the vulva and perineum in January 2019, and for a history of ulcerative colitis, for which she had been on treatment between 1981 in 1995. She also has a history of hyperlipidemia, but she has not required treatment for it. She has anxiety and depression, adequately managed with Lexapro. She is a non-smoker. INTERIM HISTORY: A repeat CT pulmonary angiogram on 01/06/2021 showed no evidence of pulmonary embolus. The previously described diffuse bilateral pulmonary infiltrates were noted to have essentially resolved. There was just a small amount of residual subpleural interstitial thickening. There were moderate to advanced chronic emphysematous changes. As of her follow-up visit on 01/09/2021 she was feeling better, and she was able to continue with cycle 5 of decitabine/venetoclax. During subsequent follow-up her hemoglobin/hematocrit levels remained adequate. She did become severely neutropenic with her neftaly ANC <100,at her follow-up visit on 01/30/2021. She did not have fever or other complications, but her further treatment was delayed. Her platelet count nadired at 20,000. Her laboratory studies on 02/16/2021 included a B12 level, which came back very low at <150 pg/mL. A subsequent methylmalonic acid level was elevated at 665/318 nmol/L. With that finding, she began replacement with B12 injections. She continued with cycle 6 of decitabine/venetoclax on 03/09/2021, and she then had follow-up with Dr. Tipton at [facility] on 03/27/2021. At that time she was complaining of persistent cough, and she also was seen there by her infectious disease specialist. Her chest CT showed some new small foci of consolidation in the right lung and a small amount of airway impaction in the right upper lobe as well as some new areas of tree-in-bud nodularity scattered in both lungs. The findings were felt to be likely infectious/inflammatory, but nonspecific. There was a slight increase in peripheral and basilar predominant mild reticulations with superimposed linear bands in the left upper lobe, thought to be sequelae of Covid infection and resolving organizing pneumonia. With those findings, she was recommended to continue treatment with decitabine/venetoclax, but with the duration of the venetoclax reduced to 14 days. She was recommended to continue with her same prophylaxis. She proceeded with cycle 7 on 04/24/2021 and with cycle 8 on 06/05/2021. With that cycle, the duration of the venetoclax was reduced to 14 days. She is seen for a follow-up visit. She says she feels great. She has good energy and activity tolerance. ECOG score is 0. Appetite also is good. She has no fever or night sweats. She has not had sore mouth or throat. She does have some cough, but that generally has been controlled with her Breo inhaler. She does not complain of shortness of breath or chest pain. She currently has no GI or complaints. She does have some joint pain, but it is tolerable. She has not been having headache or dizziness, and she has no focal neurologic symptoms. She has had some bruising, but no other bleeding manifestations. Medications: Biotin Tablet Oral daily, Breo Ellipta Aerosol Powder, Breath Activated Inhalation daily, Centrum Adults Tablet Oral daily, Clobetasol Propionate (0.05 %) Cream Topical Take as Directed, Colace (100 mg) Capsule Oral daily, Klor-Con 10 1 Tablet (of 10 meq) Tablet, controlled release Oral daily, Lexapro 2 (20 mg) Tablet Oral daily, Losartan Potassium 1 Tablet (of 50 mg) Oral b.i.d., Melatonin 1 (3 mg) Tablet Oral at bedtime, Pantoprazole Sodium (20 mg) Tablet, enteric coated Oral daily, Probiotic Capsule Oral daily Allergies: Adhesive, Amoxicillin, Penicillins, and Sulfa Antibiotics. Vital Signs: Performed on Jul 17, 2021 16:16 Height - 62.00 in BP - 183/72 mm(hg) (HIGH) Performed on Jul 17, 2021 16:15 Height - 62.00 in Weight - 130.4 lbs (HIGH) BSA - 1.59 sq.m BMI - 23.85 Temperature - 98.0 F (LOW) Pulse - 81 /min Respiration - 18 /min BP - 185/78 mm(hg) (HIGH) O2 Sat - 96 % Pain - 0 Fatigue - 0 Physical Examination: Constitutional - She looks pretty good generally, Eyes - Sclerae nonicteric. Conjunctivae clear, ENMT - No lesions noted in the oral cavity, Hematologic/Lymphatic - No cervical, clavicular, or axillary adenopathy, Respiratory - Lungs sound clear. She has good air movement bilaterally, Cardiovascular - Heart rhythm is regular. There is a II/ systolic murmur. There is no gallop or rub noted, Abdomen - Soft. Liver and spleen are not enlarged. There is no abdominal mass or ascites noted and there is no inguinal adenopathy, Extremities - No edema, Neurologic - No focal neurologic deficits noted. Lab/Imaging: Test performed on Jul 17, 2021 15:00 WBC 4.4 10 3/uL RBC 3.50 10 6/uL HGB 11.6 g/dL HCT 35.5 % MCV 101.4 fl MCH 33.1 pg MCHC 32.7 g/dL RDW 17.2 % Platelet Count 58 10 3/cmm MPV 9.0 fL Neutrophils 2.44 10 3/uL Lymphocytes 1.2 10 3/uL Monocytes 0.7 10 3/uL Eosinophils 0.0 10 3/uL Basophils 0.0 10 3/uL Neutrophil % 55.2 % Lymphocyte % 28.1 % Monocyte % 15.8 % Eosinophil % 0.2 % Basophils % 0.2 % NRBC % 0 % Problem List: 1. Acute myeloid leukemia with SRSF2, ASXL1, and RUNX1 mutations. She had presented in May 2020 with pancytopenia and predominant neutropenia. 2. She has been on topical therapy for lichen sclerosis et atrophicus and for a skin eruption on her legs, presumably eczema. 3. Remote history of ulcerative colitis. 4. Hyperlipidemia, not requiring medication. 5. Anxiety/depression. 6. She was diagnosed with COVID-19 virus infection in October 2020. Problems Addressed with this Encounter and Plan: 1. Patient with acute myeloid leukemia with SRSF2, ASXL1, and RUNX1 mutations. She began treatment with 5-day decitabine in combination with venetoclax 200 mg daily for 28 days on 06/20/2020. Her repeat bone marrow aspiration/biopsy on 07/22/2020 showed complete remission. On 08/08/2020 she proceeded with cycle 3 of 5-day decitabine together with venetoclax 100 mg daily for 21 days. That cycle was complicated by prolonged neutropenia, but without fever or other complications. She then continued with cycle 4 on 09/19/2020. Subsequent to that treatment she had developed persistent cough and she then developed low-grade fever. In mid October she was confirmed to have COVID-19 virus infection, and on 11/17/2020 she was admitted to the hospital with COVID-19 pneumonia. She had gradual recovery. A repeat CT pulmonary angiogram on 01/06/2021 showed no evidence of pulmonary embolism. The diffuse bilateral pulmonary infiltrates were noted to be essentially resolved. On 01/09/2021 she was able to restart treatment with cycle 5 of 5-day decitabine in combination with venetoclax 100 mg daily for 21 days. She again had severe neftaly neutropenia at less than 100. She had uneventful but gradual recovery. She continued with her 6th cycle treatment on 03/09/2021. During follow-up she had complained of persistent cough, but that eventually improved with a Breo inhaler. She continued to have treatment related neutropenia and thrombocytopenia, though she tolerated it with no complications. Beginning with cycle 7 on 04/24/2021 the duration of the venetoclax was reduced to 14 days. On 06/05/2021 she continued with cycle 8 of 5-day decitabine in combination with venetoclax 100 mg daily for 14 days. At this point she is doing well clinically, though with persistence of moderately severe thrombocytopenia, platelet count 58,000. As such, her treatment will be deferred. Her blood count will be rechecked in 1 week. If she is showing recovery she will then proceed with cycle 9 of decitabine/venetoclax at the same dosages and schedule. I will continue to monitor her blood counts weekly, and she will be scheduled for a 6-week interval follow-up visit. 2. Her laboratory studies in January 2021 included a B12 level, which was very low at <150 pg/mL. Her MMA level was elevated, and she has continued on replacement B12 injections. Signed By: Callum Bradshaw M.D. <<Signature on File>>
[2021-07-24 13:47] LABS: Basophils % 0.2 %; Eosinophils % 0.6 %; Hematocrit 33.5 % (37.0-47.0); Hemoglobin 10.7 g/dL (11.5-15.3); Lymphocytes # 1.2 10^3/uL (0.8-4.8); Mean Corpuscular HGB Conc 31.9 g/dL (30.0-36.0); Mean Corpuscular Hemoglobin 32.6 pg (28.0-34.0); Mean Corpuscular Volume 102.1 fl (81-99); Mean Platelet Volume 12.8 fL (7.4-10.4); Monocytes # 0.8 10^3/uL (0.2-0.9); Monocytes % 15.6 %; Neutrophils # 2.92 10^3/uL (1.8-7.7); Nucleated Red Blood Cells % 0 %; Platelet Count 68 10^3/cmm (130-400); Red Blood Count 3.28 10^6/uL (4.1-5.3); Red Cell Distribution Width 17.5 % (12.1-15.1)
[2021-07-24] MEDS: sodium chloride 0.9% 250 ML IV (15:08)
[2021-07-24] MEDS: ondansetron 2 mg/ML SDV 2 mL 8 MG IVP (15:10)
[2021-07-24] MEDS: cyanocobalamin 1,000 mcg/mL SDV 1000 MCG IM (16:00)
[2021-07-25] MEDS: sodium chloride 0.9% 250 ML IV (13:43)
[2021-07-25] MEDS: ondansetron 2 mg/ML SDV 2 mL 8 MG IVP (13:45)
[2021-07-26] MEDS: sodium chloride 0.9% 250 ML IV (13:20)
[2021-07-26] MEDS: ondansetron 2 mg/ML SDV 2 mL 8 MG IVP (13:21)
[2021-07-27] MEDS: ondansetron 2 mg/ML SDV 2 mL 8 MG IVP (13:24)
[2021-07-27] MEDS: sodium chloride 0.9% 250 ML 75 ML IV (13:24)
== END 2021-07-27 23:59 | disposition home or self-care (01) ==
LOC: ONCMED 06:42
PROVIDERS: PCP Internal Medicine; Visit Provider Internal Medicine Medical Oncology
DX: C92.10 Chronic myeloid leukemia, BCR/ABL-positive, not having achieved remission (principal); D61.818 Other pancytopenia; D70.9 Neutropenia, unspecified; L90.0 Lichen sclerosus et atrophicus; E78.5 Hyperlipidemia, unspecified; F41.9 Anxiety disorder, unspecified; F32.A Depression, unspecified; Z87.19 Personal history of other diseases of the digestive system; Z86.16 Personal history of COVID-19; Z79.899 Other long term (current) drug therapy
CPT/HCPCS: 36592; 85025; 96372; 96374; 96375; 96413; 99214; J0894; J2405; J3420; J7050

== ENCOUNTER → 2021-08-08 10:16 | Outpatient (BNVA) | payer MEDICARE, SELFPAY | PROVIDERS: PCP Internal Medicine; Referring Provider Internal Medicine Medical Oncology; Visit Provider Surgery | DX: C92.00 Acute myeloblastic leukemia, not having achieved remission (principal); D61.818 Other pancytopenia | CPT/HCPCS: 99204 ==

== ENCOUNTER 2021-08-21 07:06 | Outpatient (RCR) | payer MEDICARE, SELFPAY ==
[2021-07-28] MEDS: sodium chloride 0.9% 250 ML 75 ML IV (09:28)
[2021-07-28] MEDS: sodium chloride 0.9% (100 ml) 100 ML 188 ML (09:28)
[2021-07-28] MEDS: palonosetron 0.25 mg/5 mL SDV IV (09:28)
[2021-07-31 11:29] LABS: Basophils % 0.3 %; Eosinophils % 0.6 %; Hematocrit 36.4 % (37.0-47.0); Hemoglobin 11.7 g/dL (11.5-15.3); Lymphocytes % 16.3 %; Mean Corpuscular HGB Conc 32.1 g/dL (30.0-36.0); Mean Corpuscular Hemoglobin 33.7 pg (28.0-34.0); Mean Corpuscular Volume 104.9 fl (81-99); Mean Platelet Volume 12.6 fL (7.4-10.4); Monocytes # 0.4 10^3/uL (0.2-0.9); Monocytes % 5.7 %; Neutrophils # 4.84 10^3/uL (1.8-7.7); Neutrophils % 76.8 %; Nucleated Red Blood Cells % 0 %; Platelet Count 57 10^3/cmm (130-400); Red Blood Count 3.47 10^6/uL (4.1-5.3); Red Cell Distribution Width 17.4 % (12.1-15.1); White Blood Count 6.3 10^3/uL (4.0-10.0)
[2021-08-07 13:45] LABS: Hematocrit 34.6 % (37.0-47.0); Hemoglobin 11.5 g/dL (11.5-15.3); Lymphocytes # 0.8 10^3/uL (0.8-4.8); Lymphocytes % 61.9 %; Mean Corpuscular HGB Conc 33.2 g/dL (30.0-36.0); Mean Corpuscular Hemoglobin 33.6 pg (28.0-34.0); Mean Corpuscular Volume 101.2 fl (81-99); Monocytes # 0.2 10^3/uL (0.2-0.9); Monocytes % 14.2 %; Neutrophils % 23.2 %; Nucleated Red Blood Cells % 0 %; Positive C 1; Positive M 1; Red Blood Count 3.42 10^6/uL (4.1-5.3); Red Cell Distribution Width 17.1 % (12.1-15.1); White Blood Count 1.3 10^3/uL (4.0-10.0)
[2021-08-07 14:23] LABS: Platelet Count 18 10^3/cmm (130-400)
[2021-08-07 14:24] LABS: Neutrophils # 0.31 10^3/uL (1.8-7.7)
[2021-08-10 14:06] LABS: Hematocrit 32.1 % (37.0-47.0); Hemoglobin 10.5 g/dL (11.5-15.3); Lymphocytes # 0.9 10^3/uL (0.8-4.8); Mean Corpuscular HGB Conc 32.7 g/dL (30.0-36.0); Mean Corpuscular Hemoglobin 34.3 pg (28.0-34.0); Mean Corpuscular Volume 104.9 fl (81-99); Monocytes # 0.1 10^3/uL (0.2-0.9); Monocytes % 8.1 %; Neutrophils % 16.3 %; Nucleated Red Blood Cells % 0 %; Red Blood Count 3.06 10^6/uL (4.1-5.3); Red Cell Distribution Width 17.9 % (12.1-15.1); White Blood Count 1.2 10^3/uL (4.0-10.0)
[2021-08-10 14:13] LABS: Platelet Count 18 10^3/cmm (130-400)
[2021-08-11] MEDS: diphenhydrAMINE 25 mg Capsule PO (12:05)
[2021-08-11] MEDS: acetaminophen 325 mg Tablet 650 MG PO (12:05)
[2021-08-11 12:09] VITALS: BP 151/53; PULSE 81; RESP 18; TEMP 36.1; O2SAT 96
[2021-08-11 12:11] VITALS: BP 151/33; PULSE 81; RESP 18; TEMP 36.1; O2SAT 96
[2021-08-14 14:24] LABS: Hematocrit 32.6 % (37.0-47.0); Hemoglobin 10.8 g/dL (11.5-15.3); Lymphocytes # 0.8 10^3/uL (0.8-4.8); Mean Corpuscular HGB Conc 33.1 g/dL (30.0-36.0); Mean Corpuscular Hemoglobin 34.2 pg (28.0-34.0); Mean Corpuscular Volume 103.2 fl (81-99); Nucleated Red Blood Cells % 0 %; Platelet Count 30 10^3/cmm (130-400); Red Blood Count 3.16 10^6/uL (4.1-5.3); Red Cell Distribution Width 17.6 % (12.1-15.1)
[2021-08-14 15:17] LABS: Slide Review Slide Review Perform
[2021-08-14 15:18] LABS: Neutrophils # 0.14 10^3/uL (1.8-7.7)
[2021-08-21] MEDS: cyanocobalamin 1,000 mcg/mL SDV 1000 MCG SUBCUT (15:08)
[2021-08-21 15:20] LABS: Hematocrit 31.8 % (37.0-47.0); Hemoglobin 10.5 g/dL (11.5-15.3); Lymphocytes # 0.8 10^3/uL (0.8-4.8); Lymphocytes % 60.9 %; Mean Corpuscular Hemoglobin 34.3 pg (28.0-34.0); Mean Corpuscular Volume 103.9 fl (81-99); Mean Platelet Volume 10.5 fL (7.4-10.4); Monocytes # 0.1 10^3/uL (0.2-0.9); Monocytes % 10.5 %; Neutrophils % 28.6 %; Nucleated Red Blood Cells % 0 %; Platelet Count 81 10^3/cmm (130-400); Red Blood Count 3.06 10^6/uL (4.1-5.3); Red Cell Distribution Width 17.4 % (12.1-15.1); White Blood Count 1.3 10^3/uL (4.0-10.0)
[2021-08-21 15:51] LABS: Slide Review Slide Review Perform
[2021-08-21 15:52] LABS: Neutrophils # 0.38 10^3/uL (1.8-7.7)
== END 2021-08-26 23:59 | disposition home or self-care (01) ==
LOC: ONCMED 07:06
PROVIDERS: PCP Internal Medicine; Visit Provider Internal Medicine Medical Oncology
DX: C92.01 Acute myeloblastic leukemia, in remission (principal); D61.818 Other pancytopenia; Z79.899 Other long term (current) drug therapy
CPT/HCPCS: 36415; 36430; 36592; 85025; 86900; 96367; 96372; 96413; J0894; J2469; J3420; J7050; P9037

== ENCOUNTER 2021-09-04 05:50 | Day surgery (SDC) | payer MEDICARE, SELFPAY ==
[2021-08-08 14:13] VITALS: BMI 24.5
[2021-09-04] VITALS (9 sets, daily range): BP systolic 148–187; BP diastolic 60–86; PULSE 55–60; RESP 15–20; TEMP 36.1–37; O2SAT 93–97
--- NOTE | 2021-09-04 | SCC_ITS ---
Procedure done: 1. Placement of PowerPort in the right internal jugular vein 2. Fluoroscopic guidance and interpretation for placement of catheter 3. Ultrasound guidance to access the right internal jugular vein 4. Removal of right subclavian vein central line 20.9 seconds of fluoroscopic guidance, for a cumulative dose of 2.00 mGy, was provided to Dr. Alejandre by the radiology department. C-arm images of the chest were saved for the patient's permanent record. TAVO
[2021-09-04] MEDS: sodium chloride 0.9% 1,000 ML 30 ML IV (06:22)
[2021-09-04] MEDS: vancomycin 1,000 MG in sodium chloride 0.9% 250 ML 250 MG IV (06:26)
[2021-09-04 06:37] LABS: Hematocrit 32.8 % (37.0-47.0); Hemoglobin 10.9 g/dL (11.5-15.3); Mean Corpuscular HGB Conc 33.2 g/dL (30.0-36.0); Mean Corpuscular Hemoglobin 34.4 pg (28.0-34.0); Mean Corpuscular Volume 103.5 fl (81-99); Mean Platelet Volume 10.9 fL (7.4-10.4); Platelet Count 54 10^3/cmm (130-400); Red Blood Count 3.17 10^6/uL (4.1-5.3); Red Cell Distribution Width 18.1 % (12.1-15.1); White Blood Count 4.5 10^3/uL (4.0-10.0)
[2021-09-04 07:08] LABS: Absolute Segmented Neutrophil 3.1 10/cmm (1.6-7.1); Alanine Aminotransferase 19 U/L (0-33); Albumin Level 4.4 g/dL (3.5-5.2); Alkaline Phosphatase 96 IU/L (35-105); Anion Gap 15.4 (5-19); Aspartate Amino Transferase 28 U/L (0-32); Band Neutrophils Absolute 0.1 10^3/cmm (0.0-1.2); Blood Urea Nitrogen 11 mg/dL (8-23); Calcium 9.7 mg/dL (8.5-10.5); Carbon Dioxide 27 mmol/L (22-29); Chloride 102 mmol/L (98-107); Eosinophils 0 %; Globulin 1.8 g/dL (1.3-4.6); Glomerular Filtration Rate 99.1 mL/min (90-130); Glucose 102 mg/dL (65-115); Lymphocytes 21 %; Lymphocytes Absolute 0.9 10^3/cmm (1.2-3.4); Monocytes Absolute 0.3 10^3/cmm (0.1-0.6); Osmolality Calculated 290 mOsm/kg (285-295); Potassium 4.4 mmol/L (3.5-5.1); Segmented Neutrophils 69 %; Sodium 140 mmol/L (136-145); Total Bilirubin 0.4 mg/dL (0.15-1.2); Total Cells Counted 100 (0-100); Total Protein 6.2 g/dL (6.6-8.7)
[2021-09-04 07:09] LABS: Absolute Neutrophil 3.2 10^3/cmm (1.4-6.5); Anisocytosis Trace; Ovalocytes Trace; Platelet Estimate Decreased (Normal); Poikilocytosis Trace
--- NOTE | 2021-09-04 07:28 | ANES.PREANE2 ---
Pre-Anesthetic Assessment Height/Weight: Height 1.55 m Weight 58.967 kg Temp Pulse Resp BP Pulse Ox 97.0 F L 60 18 168/83 97 09/04/21 06:06 09/04/21 06:06 09/04/21 06:06 09/04/21 06:06 09/04/21 06:06 Preop Diagnosis: aml Operation Date: 09/04/21 07:00 Proposed Procedures p Portacath Placement 91130/c92.90(Not Applicable) - Guy Alejandre MD s Central line removal 16460(Not Applicable) - Guy Alejandre MD Familial anesthetic complications: None Was Beta Ibis taken within 24 hours: N/A Was Clonidine taken within 24 hours: N/A Last intake: Intake Last Liquid Date 09/03/21 Last Liquid Time 23:30 Last Solid Date 09/03/21 Last Solid Time 15:00 Social No alcohol and No tobacco Exam alert, oriented x 3, clear to auscultation bilaterally and regular rate & rhythm Airway Submandibular: within normal limits Cervical ROM: within normal limits Mallampati: Class II Dentition: full CV/HEM Hypertension Leukemia GI Gastroesophageal Reflux Disease Neuropsych Depression Anesthetic Plan ASA status: 3 Anesthesia: MAC Medications/Allergies Home Medications Medication Instructions Recorded Confirmed Last Taken Type acyclovir 400 mg tablet 400 mg PO TID@,,06/30/20 09/04/21 09/03/21 History ondansetron 8 mg disintegrating 8 mg PO Q6H PRN 06/30/20 09/04/21 08/11/21 History tablet posaconazole 100 mg tablet,delayed 200 mg PO QAM 07/16/20 09/04/21 09/03/21 History release (Noxafil) docusate sodium 100 mg capsule 100 mg PO BID 11/18/20 09/04/21 09/03/21 History famotidine-Ca carb-mag hydrox 10 1 tab PO QPM PRN 11/18/20 09/04/21 08/11/21 History mg-800 mg-165 mg chewable tablet (Acid Gravity Prospecting Operator Complete (famotidine)) melatonin 5 mg tablet 3 mg PO BEDTIME PRN 11/18/20 09/04/21 09/03/21 History acetaminophen 500 mg tablet 500 mg PO Q6H PRN 12/13/20 09/04/21 08/11/21 History (Tylenol Extra Strength) oxygen-air delivery systems 12/13/20 08/08/21 Unknown History losartan 50 mg tablet 50 mg PO BID 08/08/21 09/04/21 09/03/21 History potassium chloride 10 mEq 10 meq PO DAILY 08/08/21 09/04/21 08/11/21 History capsule,extended release venetoclax 100 mg tablet 100 mg PO DAILY #14 tab 08/31/21 09/04/21 Unknown Rx (Venclexta) Lactobacillus acidophilus 100 mmu cells PO DAILY 09/01/21 09/04/21 09/03/21 History biotin 10,000 mcg capsule 10,000 mcg PO DAILY 09/01/21 09/04/21 09/03/21 History escitalopram oxalate 20 mg tablet 20 mg PO DAILY 09/01/21 09/04/21 09/03/21 History (Lexapro) [id number]-[id number]-kfmpsz tablet 1 tab PO DAILY 09/01/21 09/04/21 09/03/21 History Allergies Allergy/AdvReac Type Severity Reaction Status Date / Time adhesive Allergy Unknown Unknown Verified 09/04/21 06:01 amoxicillin Allergy Rash, Verified 09/04/21 06:01 tongue swelling Penicillins Allergy Unknown Verified 09/04/21 06:01 Sulfa (Sulfonamide Allergy Rash Verified 09/04/21 06:01 Antibiotics) Current Medications Generic Name Dose Route Start Last Admin Trade Name Freq PRN Reason Stop Dose Admin Sodium Chloride 1,000 mls @ 30 mls/hr 09/04/21 06:15 09/04/21 06:22 Sodium Chloride 0.9% IV 09/05/21 06:14 30 mls/hr .Q24H HOLLY Administration PFS Anesthesia Medical History (Updated 08/25/21 @ 13:44 by Donna Delgado LPN) AML (acute myeloblastic leukemia) Diagnosed in 2020 and she is currently undergoing chemotherapy at [facility]--this is being managed by the oncology doctors in [place] as well COVID-19 Depression Symptoms controlled on Lexapro managed by her primary care provider Lichen sclerosus Diagnosed in January 2019 with a vulvar biopsy--- symptoms well controlled with consistent clobetasol use Ulcerative colitis States that she has had ulcerative colitis since about the age of 32. She states she last had a colonoscopy in [place] in 2018 that was within normal limits. She is not currently on any medication for this Surgical History S/P section Performed in the 1970s via vertical midline infraumbilical incision Family History Sister Hyperlipidemia Hypertension Vulvar cancer Brother Hyperlipidemia Hypertension Diabetes Father Stroke Denies family history of Cervical cancer Colon cancer Ovarian cancer DVT (deep venous thrombosis) Breast cancer Pulmonary embolism Uterine cancer Social History Smoking and tobacco status: never smoked Alcohol intake: unknown Data Anesthesia : 09/04/21 06:18 09/04/21 06:18 Short CBC 09/04/21 Range/Units 06:18 WBC 4.5 (4.0-10.0) 10^3/uL Hgb 10.9 L (11.5-15.3) g/dL Hct 32.8 L (37.0-47.0) % MCV 103.5 H (81-99) fl Plt Count 54 L (130-400) 10^3/cmm BMP 09/04/21 06:18 Sodium 140 Potassium 4.4 Chloride 102 Carbon Dioxide 27 BUN 11 Creatinine 0.6 Glucose 102 Calcium 9.7 Liver Function 09/04/21 Range/Units 06:18 Total Bilirubin 0.4 (0.15-1.2) mg/dL AST 28 (0-32) U/L ALT 19 (0-33) U/L Alkaline Phosphatase 96 (35-105) IU/L Albumin 4.4 (3.5-5.2) g/dL Blood Bank 09/04/21 06:18 Blood Type A Positive Rho(D) Type Positive Cardiac Studies: No Data to Display
--- NOTE | 2021-09-04 08:53 | W.PM.OPSFHP ---
Same Day Surgery H&P Indication for Procedure/HPI DATE OF PROCEDURE: September 04, 2021 CHIEF COMPLAINT/INDICATIONFOR SURGICAL PROCEDURE: Port placement PREOP DIAGNOSIS: aml PLANNED PROCEDURE: Operation Date: 09/04/21 07:00 Proposed Procedures p Portacath Placement 48152/c92.90(Not Applicable) - Guy Alejandre MD s Central line removal 29000(Not Applicable) - Guy Alejandre MD Medications/Allergies* Home Medications Medication Instructions Recorded Confirmed Type acyclovir 400 mg tablet 400 mg PO TID@06/30/20 09/04/21 History ondansetron 8 mg disintegrating 8 mg PO Q6H PRN 06/30/20 09/04/21 History tablet posaconazole 100 mg tablet,delayed 200 mg PO QAM 07/16/20 09/04/21 History release (Noxafil) docusate sodium 100 mg capsule 100 mg PO BID 11/18/20 09/04/21 History famotidine-Ca carb-mag hydrox 10 1 tab PO QPM PRN 11/18/20 09/04/21 History mg-800 mg-165 mg chewable tablet (Acid Helpdesk Manager Complete (famotidine)) melatonin 5 mg tablet 3 mg PO BEDTIME PRN 11/18/20 09/04/21 History acetaminophen 500 mg tablet 500 mg PO Q6H PRN 12/13/20 09/04/21 History (Tylenol Extra Strength) oxygen-air delivery systems 12/13/20 08/08/21 History losartan 50 mg tablet 50 mg PO BID 08/08/21 09/04/21 History potassium chloride 10 mEq 10 meq PO DAILY 08/08/21 09/04/21 History capsule,extended release Lactobacillus acidophilus 100 mmu cells PO DAILY 09/01/21 09/04/21 History biotin 10,000 mcg capsule 10,000 mcg PO DAILY 09/01/21 09/04/21 History escitalopram oxalate 20 mg tablet 20 mg PO DAILY 09/01/21 09/04/21 History (Lexapro) wqwabcnjrthf-kkrzullj-ebxbhx tablet 1 tab PO DAILY 09/01/21 09/04/21 History Allergies/Adverse Reactions Allergy/AdvReac Type Severity Reaction Status Date / Time adhesive Allergy Unknown Unknown Verified 09/04/21 06:01 amoxicillin Allergy Rash, Verified 09/04/21 06:01 tongue swelling Penicillins Allergy Unknown Verified 09/04/21 06:01 Sulfa (Sulfonamide Allergy Rash Verified 09/04/21 06:01 Antibiotics) Current Medications: Generic Name Dose Route Start Last Admin Trade Name Cam PRN Reason Stop Dose Admin Sodium Chloride 1,000 mls @ 30 mls/hr 09/04/21 06:15 09/04/21 06:22 Sodium Chloride 0.9% IV 09/05/21 06:14 30 mls/hr .Q24H HOLLY Administration Pertinent History/Comorbid Conditions* Medical History (Updated 08/25/21 @ 13:44 by Donna Delgado LPN) AML (acute myeloblastic leukemia) Diagnosed in 2020 and she is currently undergoing chemotherapy at [facility]--this is being managed by the oncology doctors in [place] as well COVID-19 Depression Symptoms controlled on Lexapro managed by her primary care provider Lichen sclerosus Diagnosed in January 2019 with a vulvar biopsy--- symptoms well controlled with consistent clobetasol use Ulcerative colitis States that she has had ulcerative colitis since about the age of 32. She states she last had a colonoscopy in [place] in 2018 that was within normal limits. She is not currently on any medication for this Surgical History (Updated 09/30/19 @ 16:51 by Cee Bates, PRISCILLA) S/P section Performed in the 1970s via vertical midline infraumbilical incision Family History (Updated 10/05/19 @ 16:04 by Cee Bates, PRISCILLA) Diabetes Brother Hyperlipidemia Sister Brother Vulvar cancer Sister Hypertension Sister Brother Stroke Father Denies family history of Cervical cancer Colon cancer Ovarian cancer DVT (deep venous thrombosis) Breast cancer Pulmonary embolism Uterine cancer Social History Smoking and tobacco status: never smoked Alcohol intake: unknown Pertinent Exam Findings alert, oriented x 3 and regular rate & rhythm Recommendations Surgery/Procedure today Coding Level of Care Code Acute Land Resource Specialist for Cb Mccall
--- NOTE | 2021-09-04 11:48 | SC_ITS ---
WS: [id number] C-ARM RADIOGRAPHS CHEST; 2 IMAGES HISTORY: Placement of PowerPort in the right internal jugular vein COMPARISON: None available. Intraoperative imaging during placement of a RIGHT IJ Mediport. Tip overlies the distal SVC. SC/C-arm FL for CVA [id number] IMPRESSION: Intraoperative imaging during RIGHT IJ Mediport placement.
[2021-09-04] MEDS: heparin, porcine 1,000 unit/mL INJ 10 mL 10000 UNIT IRRIGATION (12:40)
[2021-09-04] MEDS: lidocaine 2% INJ 20 mL INJECTION (12:40)
--- NOTE | 2021-09-04 13:04 | PM.OP ---
Operative Report Date of procedure: September 04, 2021 Pre-op diagnosis: AML requiring central venous access for IV infusions Right subclavian central line in place Post-op diagnosis: same Procedure done: 1. Placement of PowerPort in the right internal jugular vein 2. Fluoroscopic guidance and interpretation for placement of catheter 3. Ultrasound guidance to access the right internal jugular vein 4. Removal of right subclavian vein central line Pathology: none sent Surgeon: Guy Alejandre Anesthesia: MAC Condition: stable Disposition: PACU Procedure: The patient was taken to the Operating Room and the chest and neck bilaterally were prepped and draped in a sterile manner after the antibiotic had been administered and shoulder rolls had been placed. The patient was receiving platelet transfusion. 2% lidocaine with 0.25% Marcaine was infiltrated at the side at the site of the planned entry under ultrasound guidance. An ultrasound of the right internal jugular vein revealed patent flow, no thrombus. An introducer needle was used to access the right internal jugular vein and after withdrawing blood syringe was removed and a guidewire passed under fluoroscopy into the superior vena cava. The site of the planned port was then marked on the chest and a 15 blade was used to make a 3 cm skin incision this was extended into the subcutaneous tissue using electrocautery and a subcutaneous pocket over the pectoralis fascia was created 2-0 Vicryl suture was used to suture the port to the pectoral fascia in the pocket on 3 sides. The catheter, after having been flushed with hep saline, was attached to the tunneler and a tunnel created between the port site and the internal jugular vein entry site. Under fluoroscopy the dilator sheath was passed over the guidewire into the proximal superior vena cava. The inner dilator was removed and the sheath left behind and the catheter was introduced through the peel-away sheath with the tip in the superior vena cava. The peel-away sheath was removed. The proximal end of the catheter was cut to the right size and was attached to the port. Using a Hall needle the port was accessed, it withdrew blood easily and flushed easily. A final 5cc of heparin was used to flush the PowerPort. The subcutaneous tissue was approximated using interrupted 3-0 Vicryl sutures and the skin at the introducer site and the port site was closed using subcuticular running 4-0 Monocryl sutures. Surgical glue was applied and the patient was stable throughout the procedure. Fluoroscopic guidance and interpretation was performed for introduction of the guidewire in the right internal jugular vein, passage of dilator and placement of catheter tip in the distal superior vena cava. The triple-lumen central line in the right subclavian vein which had been placed at an outside facility a year ago was removed without difficulty. Pressure dressings were applied on the right chest and right neck due to her history of thrombocytopenia.
--- NOTE | 2021-09-04 13:32 | ANE.PACU2 ---
Inpatient post-anesthesia follow up: Airway intact: Yes Vital signs: Temperature 97.6 F Pulse Rate 55 Respiratory Rate 15 Blood Pressure 168/82 Pulse Oximetry 96 Oxygen Delivery Me thod Room Air Oxygen Flow Rate Fraction of Inspir ed Oxygen Hydration adequate: Yes Nausea and vomiting: No Pain level: 1 Mental status: Baseline
--- NOTE | 2021-09-04 13:42 | SUR.PHASEI ---
1315 PT TO PACU 5 PT AWAKES TO VOICE, PT ON RA , RESPONDS VERBALLY AND APPROPRIATELY, DRESSING TO NECK D/I WITH OPSITE PULLING AND UPPER NECK SKIN, OPSITE RELEASED AND NEW OPSITE TO UPPER EDGE OF DRESSING , PT STATES THAT IT (FEELS MUCH BETTER) IV PATETN TO NS AT KVO RATE PER GRAVITY, ID BAND CHECKED , PT ID'D WITH 2 IDENTIFIERS. HOB AT 20 DEGREES. WARM BLANKETS TO PT.
[2021-09-04] MEDS: HYDROcodone-acetaminophen 5-325 mg Tablet 1 TAB PO (13:58)
[2021-09-04] MEDS: diphenhydrAMINE 25 mg Capsule PO (14:14)
== END 2021-09-04 14:15 | disposition home or self-care (01) ==
PROVIDERS: PCP Internal Medicine; Visit Provider Surgery
PROC: (CPT 36561; principal; 2021-09-04 07:00)
PROC: (CPT 36589; 2021-09-04 07:00)
DX: C92.90 Myeloid leukemia, unspecified, not having achieved remission (principal); Z86.16 Personal history of COVID-19; F32.9 Major depressive disorder, single episode, unspecified; Z82.49 Family history of ischemic heart disease and other diseases of the circulatory system; Z83.3 Family history of diabetes mellitus; Z82.3 Family history of stroke; I10 Essential (primary) hypertension; K21.9 Gastro-esophageal reflux disease without esophagitis; Z51.11 Encounter for antineoplastic chemotherapy; C92.01 Acute myeloblastic leukemia, in remission; D61.818 Other pancytopenia; Z79.899 Other long term (current) drug therapy
CPT/HCPCS: 36561; 36415; 36430; 76000; 77001; 80053; 85007; 85027; 86900; 96375; 96413; C1788; J0894; J1644; J2405; J2704; J3010; J3370; J3490; J7030; J7050; P9035

== ENCOUNTER 2021-09-22 20:24 | Inpatient (IN) | payer MEDICARE, SELFPAY ==
[2021-09-22 20:32] VITALS: BP 160/67; PULSE 77; RESP 16; TEMP 38.3; O2SAT 95; BMI 24.5
--- NOTE | 2021-09-22 20:33 | XRR_ITS ---
PROCEDURE INFORMATION: Exam: XR Chest Exam date and time: 09/22/2021 8:45 PM Age: 71 years old Clinical indication: Fever; Prior surgery; Surgery type: Port; Patient HX: Leukemia TECHNIQUE: Imaging protocol: XR of the chest. Views: 1 view. COMPARISON: CR XR chest 2V* [id number] 02/13/2021 1:25 PM FINDINGS: Tubes, catheters and devices: There is a right IJ port with tip in the superior vena cava. Lungs: There is very subtle hazy opacity in the right lung base projected just beneath the port concerning for atelectasis or small/early pneumonic infiltrate. Left lung is clear. Pulmonary vascularity is within normal limits. Pleural spaces: Unremarkable. No pleural effusion. No pneumothorax. Heart/Mediastinum: The heart is enlarged. Bones/joints: No acute abnormality. XR/XR chest 1V portable [id number] IMPRESSION: 1. Right IJ port with tip in the superior vena cava and no pneumothorax. 2. There is very subtle hazy opacity in the right lung base projected just beneath the port concerning for atelectasis or small/early pneumonic infiltrate.
--- NOTE | 2021-09-22 20:46 | ED_ITS ---
HPI - General Adult General: Chief complaint: Fever Stated complaint: Fever with cancer-Bobby sent her over Time Seen by Provider: 09/22/21 20:31 History of Present Illness: Patient is a 71-year-old female history of leukemia on chemotherapy last round was 6 days ago followed by Dr. Bradshaw to the emergency room new onset of fever x1 day. Patient was told to come to the emergency room given onset of fever. Patient has no other focal complaint chest pain, short of breath palpitation lightheadedness nausea/vomiting, Natalya, melena/hematochezia, or urinary complaints. Onset:1 day ago Duration:1 day Location:home Severity:moderate/severe Associated symptoms: Deny chest pain, dyspnea, nausea, rash, palpitations or vomiting Review of Systems Const: Reports: fever(s); Denies: chills Eyes: Denies: change in vision ENMT: Denies: mouth pain Card: Denies: chest pain or palpitations Resp: Denies: dyspnea or non-productive cough GI: Denies: abdominal pain, nausea, vomiting or diarrhea : Denies: dysuria Musc: Denies: extremity pain Skin/Breast: Denies: rash or new lesions Neuro: Denies: weakness in extremities Psych: Reports: other (Normal mood) Mak/Lymph: Denies: easy bruising PFSH ED PFSH: Medical History AML (acute myeloblastic leukemia) Diagnosed in 2020 and she is currently undergoing chemotherapy at [facility]--this is being managed by the oncology doctors in [place] as well COVID-19 Depression Symptoms controlled on Lexapro managed by her primary care provider Lichen sclerosus Diagnosed in January 2019 with a vulvar biopsy--- symptoms well controlled with consistent clobetasol use Ulcerative colitis States that she has had ulcerative colitis since about the age of 32. She states she last had a colonoscopy in [place] in 2018 that was within normal limits. She is not currently on any medication for this Surgical History Port-A-Cath in place (09/04/21) right IJ S/P section Performed in the 1970s via vertical midline infraumbilical incision Family History Sister Hyperlipidemia Hypertension Vulvar cancer Brother Hyperlipidemia Hypertension Diabetes Father Stroke Denies family history of Cervical cancer Colon cancer Ovarian cancer DVT (deep venous thrombosis) Breast cancer Pulmonary embolism Uterine cancer Social History Smoking and tobacco status: never smoked Alcohol intake: unknown Physical Exam Const: COMMON NORMALS: alert HENMT: COMMON NORMALS: atraumatic HEAD & SCALP: atraumatic MOUTH: moist mucous membranes not abnormal Eye: COMMON NORMALS: EOMs intact bilaterally and conjunctivae normal CONJUNCTIVA: Yes conjunctivae normal Neck/C-Spine: COMMON NORMALS: full ROM and supple Chest: OTHER: R port site dry/clean/intact Resp: COMMON NORMALS: normal respiratory effort and clear to auscultation bilaterally AUSCULTATION: clear to auscultation bilaterally Cardio: COMMON NORMALS: regular rate RATE: regular rate GI: COMMON NORMALS: Soft to palpation and non-tender PALPATION: Yes Soft to palpation OTHER: No focal TTP. NO guarding rebound, guarding, rigidity. No CVA tenderness to percussion. Neg Irving/Neg McBurney's point tenderness, no suprabupic tenderness to palpation. Extremity: COMMON NORMALS: full ROM Neuro: SENSORIUM/ORIENTATION: Yes alert MOTOR EXAM: No Abnormal motor strength present and Other motor observations present (no focal motor deficits) Psych: COMMON NORMALS: speech normal SPEECH: Yes normal speech MOOD & AFFECT: Yes euthymic mood Course Vital Signs: Vital signs: Vital Signs Temperature 101.0 F H 09/22/21 20:32 Pulse Rate 77 09/22/21 20:32 Respiratory Rate 16 09/22/21 20:32 Blood Pressure 160/67 09/22/21 20:32 Pulse Oximetry 95 09/22/21 20:32 MDM - General Adult Medical Decision Making 71-year-old female with a history of leukemia on chemotherapy presenting to the emergency new onset of fever x1 day. On physical exam, patient noted febrile to 1.4 degrees. Rest of exam unremarkable. X-ray showed possible right-sided pneumonia. Patient is noted to be neutropenic febrile today. Patient received 1 g of cefepime. Blood culture pending. UA negative for any focal findings. Received 2 L of NS. Patient will be admitted to the hospital neutropenic fever. Disposition: admission Lab Data : 09/22/21 21:06 09/22/21 21:06 Radiology Impressions Chest X-Ray 09/22/21 20:33 IMPRESSION: 1. Right IJ port with tip in the superior vena cava and no pneumothorax. 2. There is very subtle hazy opacity in the right lung base projected just beneath the port concerning for atelectasis or small/early pneumonic infiltrate. Laboratory Results WBC 0.7 10^3/uL (4.0-10.0) L* 09/22/21 21:06 RBC 2.48 10^6/uL (4.1-5.3) L 09/22/21 21:06 Hgb 8.5 g/dL (11.5-15.3) L 09/22/21 21:06 Hct 26.4 % (37.0-47.0) L 09/22/21 21:06 MCV 106.5 fl (81-99) H 09/22/21 21:06 MCH 34.3 pg (28.0-34.0) H 09/22/21 21:06 MCHC 32.2 g/dL (30.0-36.0) 09/22/21 21:06 RDW 16.8 % (12.1-15.1) H 09/22/21 21:06 Plt Count 24 10^3/cmm (130-400) L* 09/22/21 21:06 MPV Not Reportable 09/22/21 21:06 Neut % (Auto) 13.3 % 09/22/21 21:06 Lymph % (Auto) 83.8 % 09/22/21 21:06 [place] % (Auto) 2.9 % 09/22/21 21:06 Eos % (Auto) 0.0 % 09/22/21 21:06 Baso % (Auto) 0.0 % 09/22/21 21:06 Neut # (Auto) 0.09 10^3/uL (1.8-7.7) L* 09/22/21 21:06 Lymph # (Auto) 0.6 10^3/uL (0.8-4.8) L 09/22/21 21:06 [place] # (Auto) 0.0 10^3/uL (0.2-0.9) L 09/22/21 21:06 Eos # (Auto) 0.0 10^3/uL (0.0-0.8) 09/22/21 21:06 Baso # (Auto) 0.0 10^3/uL (0.0-0.1) 09/22/21 21:06 Nucleated RBC % (auto) 0 % 09/22/21 21:06 Nucleated RBCs # 0.0 /100WBC 09/22/21 21:06 Sodium 137 mmol/L (136-145) 09/22/21 21:06 Potassium 4.1 mmol/L (3.5-5.1) 09/22/21 21:06 Chloride 100 mmol/L (98-107) 09/22/21 21:06 Carbon Dioxide 26 mmol/L (22-29) 09/22/21 21:06 Anion Gap 15.1 (5-19) 09/22/21 21:06 BUN 14 mg/dL (8-23) 09/22/21 21:06 Creatinine 0.5 mg/dL (0.5-0.9) 09/22/21 21:06 GFR Calculation 122.3 mL/min (90-130) 09/22/21 21:06 Glucose 108 mg/dL (65-115) 09/22/21 21:06 Calculated Osmolality 285 mOsm/kg (285-295) 09/22/21 21:06 Lactate 1.2 mmol/L (0.5-2.2) 09/22/21 21:06 Calcium 9.2 mg/dL (8.5-10.5) 09/22/21 21:06 Total Bilirubin 0.5 mg/dL (0.15-1.2) 09/22/21 21:06 AST 19 U/L (0-32) 09/22/21 21:06 ALT 15 U/L (0-33) 09/22/21 21:06 Alkaline Phosphatase 93 IU/L (35-105) 09/22/21 21:06 Total Protein 7.3 g/dL (6.6-8.7) 09/22/21 21:06 Albumin 4.3 g/dL (3.5-5.2) 09/22/21 21:06 Globulin 3.0 g/dL (1.3-4.6) 09/22/21 21:06 Lipase 33 U/L (13-60) 09/22/21 21:06 Urine Color Yellow (Yellow) 09/22/21 22:10 Urine Appearance Clear (CLEAR) 09/22/21 22:10 Urine pH 7 (5-7) 09/22/21 22:10 Ur Specific [place] 1.010 (1.005-1.030) 09/22/21 22:10 Urine Protein Neg (Negative) 09/22/21 22:10 Urine Glucose (UA) Norm (Normal) 09/22/21 22:10 Urine Ketones Negative (Negative) 09/22/21 22:10 Urine Blood Neg (Negative) 09/22/21 22:10 Urine Nitrate Negative (Negative) 09/22/21 22:10 Urine Bilirubin Neg (Negative) 09/22/21 22:10 Urine Urobilinogen 4 mg/dL (Negative) H 09/22/21 22:10 Ur Leukocyte Esterase Negative (Negative) 09/22/21 22:10 Imaging Data Other Imaging: Radiologist's impression: [place] [address] XRay Report Signed Patient: Eulalia Kaplan Unit #: [id number] : 1950 Age/Sex: 71 / F ADM Date: 09/22/21 Loc: ER Room/Bed: Attending Dr: Ordering Provider/Ordering MD: Chanelle Garcia MD Date of Service: 09/22/21 Procedure(s): XR chest 1V portable [id number] Accession Number(s): [id number] Report Number: [id number] PROCEDURE INFORMATION: Exam: XR Chest Exam date and time: 09/22/2021 8:45 PM Age: 71 years old Clinical indication: Fever; Prior surgery; Surgery type: Port; Patient HX: Leukemia TECHNIQUE: Imaging protocol: XR of the chest. Views: 1 view. COMPARISON: CR XR chest 2V* [id number] 02/13/2021 1:25 PM FINDINGS: Tubes, catheters and devices: There is a right IJ port with tip in the superior vena cava. Lungs: There is very subtle hazy opacity in the right lung base projected just beneath the port concerning for atelectasis or small/early pneumonic infiltrate. Left lung is clear. Pulmonary vascularity is within normal limits. Pleural spaces: Unremarkable. No pleural effusion. No pneumothorax. Heart/Mediastinum: The heart is enlarged. Bones/joints: No acute abnormality. XR/XR chest 1V portable [id number] IMPRESSION: 1. Right IJ port with tip in the superior vena cava and no pneumothorax. 2. There is very subtle hazy opacity in the right lung base projected just beneath the port concerning for atelectasis or small/early pneumonic infiltrate. ? Dictated By: Caryn Sifuentes Signed By: Caryn Sifuentes Signed Date/Time: 09/22/212102 DD/ 44 Discharge Plan Discharge Patient Disposition: Admitted As Inpatient Clinical Impression: Fever, Leukemia, Neutropenia with fever, Pneumonia Condition: Stable Coding Level of Care Code ED Senior Oracle Database Developer for Chg Fwd Exam Comprehensive
[2021-09-22 21:00] VITALS: BP 176/69; PULSE 78; RESP 20; O2SAT 98
[2021-09-22] MEDS: sodium chloride 0.9% 1,000 ML 999 ML IV ×2 (21:02→23:25)
[2021-09-22] MEDS: acetaminophen 500 mg Tablet 1000 MG PO (21:06)
[2021-09-22] MEDS: cefepime 1,000 MG in sodium chloride 0.9% (plus) 50 ML 100 MG IV (21:10)
[2021-09-22 21:17] LABS: Hematocrit 26.4 % (37.0-47.0); Hemoglobin 8.5 g/dL (11.5-15.3); Lymphocytes # 0.6 10^3/uL (0.8-4.8); Lymphocytes % 83.8 %; Mean Corpuscular HGB Conc 32.2 g/dL (30.0-36.0); Mean Corpuscular Hemoglobin 34.3 pg (28.0-34.0); Mean Corpuscular Volume 106.5 fl (81-99); Monocytes % 2.9 %; Neutrophils % 13.3 %; Nucleated Red Blood Cells % 0 %; Red Blood Count 2.48 10^6/uL (4.1-5.3); Red Cell Distribution Width 16.8 % (12.1-15.1)
[2021-09-22 21:31] LABS: Alanine Aminotransferase 15 U/L (0-33); Albumin Level 4.3 g/dL (3.5-5.2); Alkaline Phosphatase 93 IU/L (35-105); Anion Gap 15.1 (5-19); Aspartate Amino Transferase 19 U/L (0-32); Blood Urea Nitrogen 14 mg/dL (8-23); Calcium 9.2 mg/dL (8.5-10.5); Carbon Dioxide 26 mmol/L (22-29); Chloride 100 mmol/L (98-107); Glomerular Filtration Rate 122.3 mL/min (90-130); Glucose 108 mg/dL (65-115); Lipase 33 U/L (13-60); Osmolality Calculated 285 mOsm/kg (285-295); Potassium 4.1 mmol/L (3.5-5.1); Sodium 137 mmol/L (136-145); Total Bilirubin 0.5 mg/dL (0.15-1.2); Total Protein 7.3 g/dL (6.6-8.7)
[2021-09-22 21:32] LABS: Lactate (Lactic Acid level) 1.2 mmol/L (0.5-2.2)
[2021-09-22 22:00] VITALS: BP 151/64; PULSE 78; RESP 16; O2SAT 98
[2021-09-22 22:17] LABS: Slide Review Slide Review Perform; White Blood Count 0.7 10^3/uL (4.0-10.0)
[2021-09-22 22:18] LABS: Neutrophils # 0.09 10^3/uL (1.8-7.7); Platelet Count 24 10^3/cmm (130-400)
[2021-09-22 22:30] LABS: Add Urine Microscopic? NO; Charge for UA Resulting for Rev
[2021-09-22 22:42] LABS: Bilirubin Urine Neg (Negative); Blood Urine Neg (Negative); Glucose Urine UA Norm (Normal); Ketones Urine Negative (Negative); Leukocyte Esterase Urine Negative (Negative); Nitrate Urine Negative (Negative); Protein Urine Neg (Negative); Urine Appearance Clear (CLEAR); Urine Color Yellow (Yellow); Urobilinogen Urine 4 mg/dL (Negative); pH Urine 7 (5-7)
--- NOTE | 2021-09-22 23:10 | P.HP_ITS ---
Providers/Chief Complaint Primary Care Provider: Mercy Rosales MD Chief Complaint: Fever with cancer-Bobby sent her over History of Present Illness Patient is a 71-year-old female who presented with complaint of fever which started possibly 3 PM on September 22, 2021. She missed to coming rigors as well. She also admits to nausea but denies emesis. She denies cough, wheeze, abdominal pain, diarrhea, myalgia, dysuria, chest pain, dyspnea. She indicates that she was directed to the emergency department by her primary care physician or provider. The patient is currently undergoing chemotherapy for AML. She presents for further evaluation Review of Systems General: Reports: 10 or more systems reviewed and unremarkable except in HPI and below Medications/Allergies Home Medications Medication Instructions Recorded Confirmed Last Taken Type acyclovir 400 mg tablet 400 mg PO TID@09,,06/30/20 09/04/21 09/03/21 History ondansetron 8 mg disintegrating 8 mg PO Q6H PRN 06/30/20 09/04/21 08/11/21 History tablet posaconazole 100 mg tablet,delayed 200 mg PO QAM 07/16/20 09/04/21 09/03/21 History release (Noxafil) docusate sodium 100 mg capsule 100 mg PO BID 11/18/20 09/04/21 09/03/21 History famotidine-Ca carb-mag hydrox 10 1 tab PO QPM PRN 11/18/20 09/04/21 08/11/21 History mg-800 mg-165 mg chewable tablet (Acid District Attorney Complete (famotidine)) melatonin 5 mg tablet 3 mg PO BEDTIME PRN 11/18/20 09/04/21 09/03/21 History acetaminophen 500 mg tablet 500 mg PO Q6H PRN 12/13/20 09/04/21 08/11/21 History (Tylenol Extra Strength) oxygen-air delivery systems 12/13/20 08/08/21 Unknown History losartan 50 mg tablet 50 mg PO BID 08/08/21 09/04/21 09/03/21 History potassium chloride 10 mEq 10 meq PO DAILY 08/08/21 09/04/21 08/11/21 History capsule,extended release venetoclax 100 mg tablet 100 mg PO DAILY #14 tab 08/31/21 09/04/21 Unknown Rx (Venclexta) Lactobacillus acidophilus 100 mmu cells PO DAILY 09/01/21 09/04/21 09/03/21 History biotin 10,000 mcg capsule 10,000 mcg PO DAILY 09/01/21 09/04/21 09/03/21 History escitalopram oxalate 20 mg tablet 20 mg PO DAILY 09/01/21 09/04/21 09/03/21 Hist ory (Lexapro) yvcqedbvftpm-lkijathk-vxqvym tablet 1 tab PO DAILY 09/01/21 09/04/21 09/03/21 History hydrocodone 5 mg-acetaminophen 325 1 tab PO Q6H PRN #20 tab 09/04/21 Unknown Rx mg tablet lidocaine-prilocaine 2.5 %-2.5 % 1 applic TOPICAL ONCE #1 ea 09/05/21 Unknown Rx topical kit Allergies Allergy/AdvReac Type Severity Reaction Status Date / Time adhesive Allergy Unknown Unknown Verified 09/04/21 06:01 amoxicillin Allergy Rash, Verified 09/04/21 06:01 tongue swelling Penicillins Allergy Unknown Verified 09/04/21 06:01 Sulfa (Sulfonamide Allergy Rash Verified 09/04/21 06:01 Antibiotics) PFSH Acute PFSH: Medical History AML (acute myeloblastic leukemia) Diagnosed in 2020 and she is currently undergoing chemotherapy at [facility] [place]--this is being managed by the oncology doctors in [place] as well COVID-19 Depression Symptoms controlled on Lexapro managed by her primary care provider Lichen sclerosus Diagnosed in January 2019 with a vulvar biopsy--- symptoms well controlled with consistent clobetasol use Ulcerative colitis States that she has had ulcerative colitis since about the age of 32. She states she last had a colonoscopy in [place] in 2018 that was within normal limits. She is not currently on any medication for this Surgical History Port-A-Cath in place (09/04/21) right IJ S/P section Performed in the 1970s via vertical midline infraumbilical incision Family History Sister Hyperlipidemia Hypertension Vulvar cancer Brother Hyperlipidemia Hypertension Diabetes Father Stroke Denies family history of Cervical cancer Colon cancer Ovarian cancer DVT (deep venous thrombosis) Breast cancer Pulmonary embolism Uterine cancer Social History Smoking and tobacco status: never smoked Alcohol intake: unknown Vitals/I&O/Wt Last Vital Signs Temp 101.0 F H 09/22/21 20:32 Pulse 77 09/22/21 20:32 Resp 16 09/22/21 20:32 BP 160/67 09/22/21 20:32 Pulse Ox 95 09/22/21 20:32 Weight last 48 hrs Weight 58.967 kg Physical Exam Narrative: General: -Alert -No acute distress -No dyspnea -No tachypnea Head: -Atraumatic -Normocephalic Eyes: -Pupils equally round and reactive to light and accommodation -Extraocular muscles intact Neurological: -Cranial nerves II-XII intact Neck: -No jugular venous distention -No thyromegaly -No cervical lymphadenopathy Heart: -Regular rate -Regular rhythm -No murmurs -No gallops -No rubs Lungs: -No wheeze -No rhonchi -No rales ? Abdomen: -Normal bowel sounds in all four quadrants -No rebound -No guarding -No tenderness Extremities: -2/4 pulse in all four extremities -No clubbing -No cyanosis -No edema -No calf tenderness present bilaterally -Negative Delvis?s sign bilaterally Musculoskeletal: -5/5 bilateral upper extremity strength -5/5 bilateral lower extremity strength -Sensorium of bilateral upper extremities are equal and intact -Sensorium of bilateral lower extremities are equal and intact ? Additional Details / Additional Findings / Exceptions / Miscellaneous: Data : 09/22/21 21:06 09/22/21 21:06 Micro: Microbiology 09/22/21 21:04 Blood Culture - Preliminary Blood SPECIMEN COLLECTED 09/22/21 21:04 Blood Culture - Preliminary Blood SPECIMEN COLLECTED A&P Assessment and plan (1) Fever: Status: Acute Plan Fever, secondary to pneumonia wall pancytopenic due to chemotherapy for AML Pneumonia. Blood culture ?2 drawn the emergency department pending. IV vancomycin to be dosed by pharmacy plus cefepime 1 g IV every 12 hours AML, patient undergoing chemotherapy. Outpatient follow-up with hematology/oncology upon discharge Lichen sclerosis Ulcerative colitis Depression Pancytopenia with features of macrocytosis and neutropenia. Check blood counts daily with CBC. Check serum ferritin, iron panel, fecal occult blood, TSH, free T4, B12, folate levels. Neutropenic precautions GERD Hypertension DVT Proflex is. Bilateral SCD Attestations Medical Necessity Statement*: The patient's anticipate length of stay is greater than 2 midnights for treatment of her fever, evaluation of her pancytopenia, and treatment of pneumonia Coding Level of Care Code Acute Credit Assistant for [facility] [facility] Diagnoses Fever R50.9
[2021-09-22 23:30] VITALS: BP 139/60; PULSE 67; RESP 16; O2SAT 98
[2021-09-22 23:46] LABS: Free T4 Free Thyroxine 0.87 ng/dL (0.82-1.77); Thyroid Stimulating Hormone 2.58 uIU/mL (0.27-4.20)
[2021-09-23] VITALS (9 sets, daily range): BP systolic 136–178; BP diastolic 52–84; PULSE 64–77; RESP 16–18; TEMP 35.9–39.6; O2SAT 91–98; BMI 25.1
[2021-09-23 00:37] LABS: Ferritin 591 ng/mL (15-150); Iron 32 ug/dL (37-145); Percent Saturation 11.7 % (20-50); Total Iron Binding Capacity 273 mcg/dl; Unsaturated Iron Binding 241 ug/dL (112-347)
[2021-09-23 00:43] LABS: Vitamin B12 622 pg/mL (232-1245)
[2021-09-23 01:01] LABS: INR 1.09 (0.8-1.2); Partial Thromboplastin Time 22.1 SECONDS (23.9-36.7)
[2021-09-23 01:06] LABS: Fibrinogen 697 mg/dL (174-498)
[2021-09-23 01:18] LABS: Adenovirus Not Detected (NOT DETECT); Chlamydia Pneumoniae Not Detected (NOT DETECT); Coronavirus 229E,HKU1,NL63,OC4 Not Detected (NOT DETECT); Human Metapneumovirus Not Detected (NOT DETECT); Human Rhinovirus/Enterovirus Not Detected (NOT DETECT); Influenza A Not Detected (NOT DETECT); Influenza A H1 Not Detected (NOT DETECT); Influenza A H1-2009 Not Detected (NOT DETECT); Influenza A H3 Not Detected (NOT DETECT); Influenza B Not Detected (NOT DETECT); Mycoplasma Pneumoniae Not Detected (NOT DETECT); Parainfluenza Virus Type 1 Not Detected (NOT DETECT); Parainfluenza Virus Type 2 Not Detected (NOT DETECT); Parainfluenza Virus Type 3 Not Detected (NOT DETECT); Parainfluenza Virus Type 4 Not Detected (NOT DETECT); Respiratory Syncytial Virus A Not Detected (NOT DETECT); Respiratory Syncytial Virus B Not Detected (NOT DETECT); SARS-COV-2 Not Detected (NOT DETECT)
[2021-09-23 01:40] LABS: Results from Genmark
[2021-09-23 02:26] LABS: Folate Level > 20.0 ng/mL (4.8-37.3)
[2021-09-23] MEDS: acetaminophen 325 mg Tablet 650 MG PO ×4 (04:09→22:45)
[2021-09-23 05:53] LABS: Hematocrit 23.4 % (37.0-47.0); Hemoglobin 7.7 g/dL (11.5-15.3); Lymphocytes # 0.4 10^3/uL (0.8-4.8); Lymphocytes % 81.1 %; Mean Corpuscular HGB Conc 32.9 g/dL (30.0-36.0); Mean Corpuscular Hemoglobin 34.2 pg (28.0-34.0); Monocytes % 3.8 %; Neutrophils % 7.6 %; Nucleated Red Blood Cells % 0 %; Red Blood Count 2.25 10^6/uL (4.1-5.3); Red Cell Distribution Width 16.6 % (12.1-15.1)
[2021-09-23 06:14] LABS: Neutrophils # 0.04 10^3/uL (1.8-7.7); Platelet Count 19 10^3/cmm (130-400); Slide Review Slide Review Perform; White Blood Count 0.5 10^3/uL (4.0-10.0)
[2021-09-23] MEDS: escitalopram 10 mg Tablet 20 MG PO (11:00)
--- NOTE | 2021-09-23 11:24 | PM.PN ---
Subjective Subjective: She is having some cough. Not producing much phlegm. She is having some nausea. No vomiting, no diarrhea. No pain on swallowing. Son is at bedside. Helpful in providing history. They report history of fungal pneumonia in the past, although not sure what pathogen. She is currently on posaconazole. Did not remember whether she had received any Neupogen or Neulasta. Last time her Port-A-Cath was accessed was on Saturday last week when she received a platelet transfusion. Vitals/I&O/Wt Last Vital Signs Temp 99.1 F 09/23/21 07:47 Pulse 71 09/23/21 07:47 Resp 16 09/23/21 07:47 BP 172/71 09/23/21 07:47 Pulse Ox 93 09/23/21 07:47 09/22/21 09/23/21 09/23/21 22:59 06:59 14:59 Intake Total 2770 / 2770 Balance 2770 / 2770 Weight last 48 hrs Weight 60.328 kg Weight 58.967 kg Physical Exam Const: COMMON NORMALS: alert GENERAL APPEARANCE: cooperative ORIENTATION/CONSCIOUSNESS: Yes awake HENMT: COMMON NORMALS: normocephalic, EAC's normal, Normal external nose present and moist oral mucous membranes HEAD & SCALP: normocephalic NOSE: Normal external nose present EXTERNAL AUDITORY CANAL: EAC's normal Neck/C-Spine: COMMON NORMALS: no meningeal signs Chest: CHEST: Yes Symmetrical chest wall rise Resp: COMMON NORMALS: clear to auscultation bilaterally AUSCULTATION: clear to auscultation bilaterally Cardio: COMMON NORMALS: regular rate, regular rhythm and No murmurs present (Cardio) RATE: regular rate RHYTHM: regular rhythm GI: COMMON NORMALS: Normal to inspection, nondistended, normoactive bowel sounds present, Soft to palpation and non-tender PALPATION: Yes Soft to palpation Extremity: COMMON NORMALS: no pedal edema Neuro: COMMON NORMALS: moves all extremities SENSORIUM/ORIENTATION: Yes alert MENINGEAL SIGNS: Yes no meningeal signs Psych: COMMON NORMALS: mental status grossly normal Skin: COMMON NORMALS: no wounds RASHES: no rashes Data : 09/23/21 05:38 09/22/21 21:06 Micro: Microbiology 09/22/21 21:04 Blood Culture - Preliminary Blood SPECIMEN COLLECTED 09/22/21 21:04 Blood Culture - Preliminary Blood SPECIMEN COLLECTED A&P Assessment and plan (1) Fever and neutropenia: Having nonproductive cough. Mild nausea. Fever so far appears to have improved. Continue cefepime. Blood cultures from periphery. Discussed with her oncologist. Okay to also access port, collect blood cultures from the port. For now, does not appear vancomycin was started. Per discussion with oncology for now we will continue cefepime, monitor for response, if not responding, broadened. Similarly with report of prior fungal pneumonia, for now continue posaconazole (if family can bring her medication), broaden if not responding. Continue acyclovir. Neutropenic precautions and diet. Neupogen only if absolutely needed as potentially could stimulate leukemia. Status: Acute (2) Pneumonia: As above. Urine bacterial antigens. B-D glucan. Galactomannan. Status: Acute (3) Other pancytopenia: Pancytopenia with features of macrocytosis and neutropenia. Check blood counts daily with CBC. Iron deficiency anemia. Fecall occult blood is requested. TSH, free T4, B12, folate levels normal. Status: Acute Plan AML, patient undergoing chemotherapy. Outpatient follow-up with hematology/oncology upon discharge Lichen sclerosis Ulcerative colitis Depression GERD Hypertension DVT Proflex is. Bilateral SCD She requests regular diet Attestations Medical Necessity Statement*: Admission for assessment management of neutropenic fever, pneumonia. Coding Level of Care Code Acute Vocal Performer for [facility] Diagnoses Fever and neutropenia D70.9; R50.81 Pneumonia J18.9 Other pancytopenia D61.818
[2021-09-23] MEDS: acyclovir 400 mg Tablet PO ×2 (14:53→20:33)
[2021-09-23] MEDS: docusate sodium 100 mg Capsule PO ×2 (14:53→20:33)
[2021-09-23] MEDS: losartan 50 mg Tablet PO (17:27)
--- NOTE | 2021-09-23 23:11 | PC.NURSE ---
HEARING CARE PRACTITIONER reported temperature on 103. Extra blankets removed. Cold clothes applied to forehead. Tylenol administered as ordered. Review emar.
[2021-09-24] VITALS (9 sets, daily range): BP systolic 125–180; BP diastolic 56–74; PULSE 66–88; RESP 16–20; TEMP 36.5–39.4; O2SAT 93–97
[2021-09-24] MEDS: acetaminophen 500 mg Tablet 1000 MG PO (00:10)
[2021-09-24 05:30] LABS: Hemoglobin 8.6 g/dL (11.5-15.3); Lymphocytes # 0.5 10^3/uL (0.8-4.8); Lymphocytes % 87.3 %; Mean Corpuscular HGB Conc 33.1 g/dL (30.0-36.0); Mean Corpuscular Hemoglobin 34.7 pg (28.0-34.0); Mean Corpuscular Volume 104.8 fl (81-99); Monocytes % 3.6 %; Neutrophils % 7.3 %; Nucleated Red Blood Cells % 0 %; Red Blood Count 2.48 10^6/uL (4.1-5.3); Red Cell Distribution Width 16.7 % (12.1-15.1)
[2021-09-24 05:50] LABS: Alanine Aminotransferase 12 U/L (0-33); Albumin Level 3.8 g/dL (3.5-5.2); Alkaline Phosphatase 80 IU/L (35-105); Anion Gap 10.4 (5-19); Aspartate Amino Transferase 16 U/L (0-32); Blood Urea Nitrogen 9 mg/dL (8-23); Calcium 8.7 mg/dL (8.5-10.5); Carbon Dioxide 27 mmol/L (22-29); Chloride 104 mmol/L (98-107); Globulin 2.9 g/dL (1.3-4.6); Glomerular Filtration Rate 99.1 mL/min (90-130); Glucose 120 mg/dL (65-115); Osmolality Calculated 286 mOsm/kg (285-295); Potassium 3.4 mmol/L (3.5-5.1); Sodium 138 mmol/L (136-145); Total Bilirubin 0.6 mg/dL (0.15-1.2); Total Protein 6.7 g/dL (6.6-8.7)
[2021-09-24 06:14] LABS: Slide Review Slide Review Perform
[2021-09-24 06:15] LABS: Neutrophils # 0.04 10^3/uL (1.8-7.7); Platelet Count 19 10^3/cmm (130-400); White Blood Count 0.6 10^3/uL (4.0-10.0)
[2021-09-24] MEDS: acetaminophen 325 mg Tablet 650 MG PO ×3 (07:31→19:54)
[2021-09-24] MEDS: ondansetron 2 mg/ML SDV 2 mL 4 MG IVP (07:34)
[2021-09-24] MEDS: losartan 50 mg Tablet PO ×2 (08:46→18:22)
[2021-09-24] MEDS: acyclovir 400 mg Tablet PO ×3 (08:46→19:54)
[2021-09-24] MEDS: escitalopram 10 mg Tablet 20 MG PO (08:47)
[2021-09-24] MEDS: amlodipine 5 mg Tablet PO (08:47)
[2021-09-24] MEDS: docusate sodium 100 mg Capsule PO ×3 (08:47→19:54)
[2021-09-24] MEDS: cefepime 1,000 MG in sodium chloride 0.9% (plus) 50 ML 100 MG IV ×2 (08:50→21:07)
--- NOTE | 2021-09-24 11:25 | PC.NURSE ---
After vancomycin had been running for a little over an hour, pt called me into room and stated that her scalp was itching. medication was stopped, vitals were checked and WNL, no apparent rash noticed, Dr. hampton notified, and verbal order given to discontinue medication.
--- NOTE | 2021-09-24 11:41 | PM.PN ---
Subjective Subjective: Patient is doing slightly better. Last night she had a miserable evening, had fever up to 103 Fahrenheit. Received Tylenol, received some cooling, this morning feels better. Sitting up to have breakfast. Some dry cough. No nausea vomiting or diarrhea. No pain with swallowing. Later on reported itching during vancomycin infusion, most had already gone in. Drip stopped. Vitals/I&O/Wt Last Vital Signs Temp 97.7 F 09/24/21 11:11 Pulse 67 09/24/21 11:11 Resp 16 09/24/21 11:11 BP 139/68 09/24/21 11:11 Pulse Ox 96 09/24/21 11:11 09/23/21 09/24/21 09/24/21 22:59 06:59 14:59 Intake Total 526 / 766 286 / 1052 290 / 290 Balance 526 / 766 286 / 1052 290 / 290 Weight last 48 hrs Weight 60.328 kg Weight 58.967 kg Physical Exam Const: COMMON NORMALS: alert GENERAL APPEARANCE: cooperative ORIENTATION/CONSCIOUSNESS: Yes awake HENMT: COMMON NORMALS: normocephalic, EAC's normal, Normal external nose present and moist oral mucous membranes HEAD & SCALP: normocephalic NOSE: Normal external nose present EXTERNAL AUDITORY CANAL: EAC's normal Neck/C-Spine: COMMON NORMALS: no meningeal signs Chest: CHEST: Yes Symmetrical chest wall rise Resp: COMMON NORMALS: clear to auscultation bilaterally AUSCULTATION: clear to auscultation bilaterally Cardio: COMMON NORMALS: regular rate, regular rhythm and No murmurs present (Cardio) RATE: regular rate RHYTHM: regular rhythm GI: COMMON NORMALS: Normal to inspection, nondistended, normoactive bowel sounds present, Soft to palpation and non-tender PALPATION: Yes Soft to palpation Extremity: COMMON NORMALS: no pedal edema Neuro: COMMON NORMALS: moves all extremities SENSORIUM/ORIENTATION: Yes alert MENINGEAL SIGNS: Yes no meningeal signs Psych: COMMON NORMALS: mental status grossly normal Skin: COMMON NORMALS: no wounds RASHES: no rashes Data : 09/24/21 04:55 09/24/21 04:55 Micro: Microbiology 09/22/21 21:04 Blood Culture - Preliminary Blood NEGATIVE TO DATE 09/22/21 21:04 Blood Culture - Preliminary Blood NEGATIVE TO DATE 09/23/21 13:40 Blood Culture - Preliminary Blood SPECIMEN COLLECTED 09/23/21 13:40 Blood Culture - Preliminary Blood SPECIMEN COLLECTED A&P Assessment and plan (1) Fever and neutropenia: Discussed with her, as per discussion yesterday with oncology fever we will broaden antibiotic coverage with MRSA coverage with vancomycin, although. She had itching after most vancomycin was infused. Infusion was stopped. Switching to linezolid. Discussed in case recurrence further fever, switch from voriconazole to caspofungin given she has been on posaconazole at home. Having nonproductive cough. Mild nausea resolved. Repeat CXR in AM. Continue cefepime. Blood cultures from periphery and port. Continue acyclovir. Neutropenic precautions and diet. Neupogen only if absolutely needed as potentially could stimulate leukemia. Discussed with her. Status: Acute (2) Pneumonia: As above. Urine bacterial antigens. B-D glucan. Galactomannan. Status: Acute (3) Other pancytopenia: Pancytopenia with features of macrocytosis and neutropenia. Check blood counts daily with CBC. Iron deficiency anemia. Fecall occult blood is requested. TSH, free T4, B12, folate levels normal. Status: Acute Plan AML, patient undergoing chemotherapy. Outpatient follow-up with hematology/oncology upon discharge Lichen sclerosis Ulcerative colitis Depression GERD Hypertension DVT Proflex is. Bilateral SCD She requests regular diet Attestations Medical Necessity Statement*: Continue admission for assessment management of neutropenic fever. Coding Level of Care Code Acute Criminal Justice Professor for [facility] Diagnoses Fever and neutropenia D70.9; R50.81 Pneumonia J18.9 Other pancytopenia D61.818
--- NOTE | 2021-09-24 12:06 | PC.NURSE ---
Vanc discontinued, linezolid ordered. Verbal order given to start linezolid at 2100 this evening. order changed in JUN.
[2021-09-24] MEDS: hyDRALAzine 20 mg/mL INJ 1 mL 10 MG IVP (19:54)
[2021-09-24] MEDS: linezolid premix 600 MG/300 ML PREMIX 300 MG IV (19:55)
--- NOTE | 2021-09-24 20:36 | PC.NURSE ---
Temperature 100.9 at beginning of shift. Tylenol 650 mg administered as ordered. Review emar. At recheck temperature 103.0 orally. Unable to administer 1000 mg of Tylenol as it is too early and pt will be over daily recommended limit. Dr. Hernandez made aware. New orders for UA, chest XR portable, and blood cultures x2 via telephone. Orders read back. Pt and family educated. Pt continues to request additional Tylenol. Extra blankets removed, cool cloths, and ice packs applied.
--- NOTE | 2021-09-24 20:52 | XRR_ITS ---
PROCEDURE INFORMATION: Exam: XR Chest Exam date and time: 09/24/2021 9:35 PM Age: 71 years old Clinical indication: Fever; Additional info: Fever of unkown source TECHNIQUE: Imaging protocol: XR of the chest. Views: 1 view. COMPARISON: CR (CHEST, ) 09/22/2021 8:45 PM FINDINGS: Tubes, catheters and devices: Right internal jugular Port-A-Cath is stable in position with the tip in the upper superior vena cava. Lungs: Lungs are clear bilaterally. Pleural spaces: No pleural effusion. No pneumothorax. Heart/Mediastinum: Stable moderate enlargement of the cardiac silhouette. Mediastinal contours are unremarkable. Bones/joints: Unremarkable for age. XR/XR chest 1V portable [id number] IMPRESSION: 1. No acute cardiopulmonary process. 2. Incidental/nonacute findings are listed in the report.
[2021-09-24 22:09] LABS: Add Urine Microscopic? YES; Bilirubin Urine Neg (Negative); Blood Urine 2+ (Negative); Glucose Urine UA Norm (Normal); Ketones Urine Negative (Negative); Leukocyte Esterase Urine Negative (Negative); Nitrate Urine Negative (Negative); Protein Urine Neg (Negative); Specific Gravity, Urine 1.005 (1.005-1.030); Urine Appearance Clear (CLEAR); Urine Color Straw (Yellow); Urobilinogen Urine Norm (Negative); pH Urine 6.5 (5-7)
[2021-09-24 22:10] LABS: Add Urine Culture? No; Bacteria Urine TRACE /hpf; Squamous Epithelial Cell Urine 0-4 /hpf (0-5); WBC Urine 0-4 /hpf (0-5)
[2021-09-25] VITALS (16 sets, daily range): BP systolic 135–171; BP diastolic 57–90; PULSE 67–80; RESP 16–23; TEMP 36.9–39.3; O2SAT 92–99
[2021-09-25] MEDS: acetaminophen 500 mg Tablet 1000 MG PO ×2 (01:44→22:22)
[2021-09-25 05:23] LABS: Hemoglobin 6.9 g/dL (11.5-15.3); Lymphocytes # 0.5 10^3/uL (0.8-4.8); Lymphocytes % 88.7 %; Mean Corpuscular HGB Conc 33.3 g/dL (30.0-36.0); Monocytes % 3.8 %; Neutrophils % 5.6 %; Nucleated Red Blood Cells % 0 %; Red Blood Count 2.03 10^6/uL (4.1-5.3); Red Cell Distribution Width 16.9 % (12.1-15.1)
[2021-09-25 05:43] LABS: Alanine Aminotransferase 12 U/L (0-33); Albumin Level 3.3 g/dL (3.5-5.2); Alkaline Phosphatase 76 IU/L (35-105); Aspartate Amino Transferase 20 U/L (0-32); Blood Urea Nitrogen 7 mg/dL (8-23); Calcium 8.5 mg/dL (8.5-10.5); Carbon Dioxide 24 mmol/L (22-29); Chloride 104 mmol/L (98-107); Globulin 2.8 g/dL (1.3-4.6); Glomerular Filtration Rate 122.3 mL/min (90-130); Glucose 126 mg/dL (65-115); Magnesium 2.2 mg/dL (1.7-2.3); Osmolality Calculated 286 mOsm/kg (285-295); Sodium 138 mmol/L (136-145); Total Bilirubin 0.5 mg/dL (0.15-1.2); Total Protein 6.1 g/dL (6.6-8.7)
[2021-09-25 05:45] LABS: Slide Review Slide Review Perform
[2021-09-25 05:46] LABS: Hematocrit 20.7 % (37.0-47.0); Neutrophils # 0.03 10^3/uL (1.8-7.7); Platelet Count 23 10^3/cmm (130-400); White Blood Count 0.5 10^3/uL (4.0-10.0)
--- NOTE | 2021-09-25 05:52 | PC.NURSE ---
This RN took call for critical lab values. Dr. Hernandez notified with new order received to transfuse 1 unit irradiated prbc. Patient's primary nurse Birgit Arzate notified of new order and labs.
--- NOTE | 2021-09-25 06:00 | XRR_ITS ---
PROCEDURE INFORMATION: Exam: XR Chest Exam date and time: 09/25/2021 6:09 AM Age: 71 years old Clinical indication: Dyspnea; Additional info: Hypoxia TECHNIQUE: Imaging protocol: XR of the chest. Views: 1 view. COMPARISON: CR (CHEST, ) 09/24/2021 9:35 PM FINDINGS: Tubes, catheters and devices: There is stable positioning of a MediPort catheter placed via the right internal jugular vein. Lungs: There are some strandy opacities present in the lower hemithoraces bilaterally, findings that likely represent atelectasis. Bilateral basilar infiltrates and pneumonia cannot be entirely excluded. Pleural spaces: Unremarkable. No pleural effusion. No pneumothorax. Heart/Mediastinum: Unremarkable. No cardiomegaly. Bones/joints: Unremarkable. XR/XR chest 1V portable [id number] IMPRESSION: 1. Strandy opacities present in the lower hemithoraces likely represents atelectasis although bilateral basilar infiltrates and pneumonia cannot be entirely excluded.
--- NOTE | 2021-09-25 06:47 | PC.NURSE ---
Pt made aware of am lab results and need for a blood tranfusion. Pt agreeable. This RN brought in consent for blood. Pt declined at this time stating I don't want anymore pokes or anything until I see Dr. Bradshaw . Pt asked why lab keeps taking her blood. This RN educated that we are monitoring how her CBC is trending d/t her medical history. When asked if we could utilize her accessed port pt refused. Pt confused with conditioning worsening instead of improving and stating she does not feel she has been given any answer. Dr. Hernandez made aware.
[2021-09-25] MEDS: escitalopram 10 mg Tablet 20 MG PO (08:49)
[2021-09-25] MEDS: amlodipine 5 mg Tablet PO (08:49)
[2021-09-25] MEDS: acyclovir 400 mg Tablet PO ×3 (08:49→20:39)
[2021-09-25] MEDS: losartan 50 mg Tablet PO ×2 (08:49→19:08)
[2021-09-25] MEDS: cefepime 1,000 MG in sodium chloride 0.9% (plus) 50 ML 100 MG IV ×2 (08:51→20:39)
[2021-09-25] MEDS: acetaminophen 325 mg Tablet 650 MG PO ×2 (08:59→15:33)
[2021-09-25] MEDS: docusate sodium 100 mg Capsule PO ×3 (09:13→20:40)
[2021-09-25] MEDS: linezolid premix 600 MG/300 ML PREMIX 300 MG IV ×2 (10:16→21:10)
--- NOTE | 2021-09-25 11:41 | PC.NURSE ---
Physician rounding Dr Calix at bedside with pt and family. discussed that he will inform dr boothe before we do blood transfusion. blood product on hold.
--- NOTE | 2021-09-25 12:00 | P.PN_ITS ---
Subjective Subjective: 71-year-old female with acute myeloid leukemia comes in for neutropenic fever noted Saturday. She has come in with white count 0.7 and platelet count 20 this has persisted. Patient has had fevers up to 103 and feels poorly. She has continued oozing with her blood draws but not overt hem orrhage. Patient is not a good candidate for Neupogen due to potential precipitation of her blasts Looking at old records she had moderate least severe pancytopenia and acute myeloid leukemia with SRSF2, ASXL 1 and RUNX1 mutations. She was treated with decitabine x5 days and venetoclax for 28 or 14 days. She looks to have had 8 cycles of that treatment On September 04, 2021 she had her right side catheter changed to a port and patient developed some fevers 4 days ago. She has had culture drawn from her port but not yet allowed usage of her port for antibiotics. I spoke with Dr. Quintana who is on-call for Dr. Bradshaw and he recommends that we use the port for all anti- infectives. Port infection is high on the differential and best opportunity to save the port would be to give the anti-infectives through the port Patient denies cough, abdominal pain nausea vomiting diarrhea dysuria hematuria she does have her gallbladder and appendix still intact Vitals/I&O/Wt Last Vital Signs Temp 98.6 F 09/25/21 10:30 Pulse 78 09/25/21 08:00 Resp 17 09/25/21 08:00 BP 158/65 09/25/21 08:00 Pulse Ox 98 09/25/21 08:00 09/24/21 09/25/21 09/25/21 22:59 06:59 14:59 Intake Total 715 / 1445 365 / 1810 710 / 710 Balance 715 / 1245 365 / 1610 710 / 710 Physical Exam Narrative: General well-developed well-nourished female in no acute cardiopulmonary distress CV regular rate and rhythm Lungs clear to auscultation bilateral Abdomen positive bowel sounds soft nontender Calves no tenderness cords pedal edema Port subcutaneous tunneling and port without erythema or tenderness. Mentation alert and oriented x3 Mood and affect are normal. Oropharynx clear without exudate Neck supple nontender Skin warm and dry Data : 09/25/21 04:55 09/25/21 04:55 Micro: Microbiology 09/25/21 11:19 Occult Blood (FIT) - Final Stool 09/23/21 17:36 Legionella Urinary Antigen - Final Urine,Clean Catch Bacterial Antigens - Final 09/24/21 22:30 Blood Culture - Preliminary Blood SPECIMEN COLLECTED 09/24/21 22:25 Blood Culture - Preliminary Blood SPECIMEN COLLECTED 09/23/21 13:40 Blood Culture - Preliminary Blood NEGATIVE TO DATE 09/23/21 13:40 Blood Culture - Preliminary Blood NEGATIVE TO DATE CXR: My impression: No obvious pneumonia A&P Assessment and plan (1) Fever and neutropenia: 1 more blood culture through the port and then start antibiotics through the port along with her other anti-infectives that are given IV. Status: Acute (2) Acute myeloblastic leukemia, not having achieved remission: Patient is not receiving treatment in the hospital she is significantly anemic and her hematocrit usually runs 30-32. We will give 2 units Leukopoor packed red cells. Status: Acute (3) Depression: Stable Status: Acute Attestations Medical Necessity Statement*: Patient will remain in the hospital due to neutropenic fevers and to administer antibiotics through her port Time Spent in Patient Care: Greater than 35 minutes Coding Level of Care Code Acute Financial Aid Officer for [facility] Fwd Diagnoses Fever and neutropenia D70.9; R50.81 Acute myeloblastic leukemia, not having achieved remission C92.00 Depression F32.9
[2021-09-25] MEDS: potassium chloride ER 20 mEq Tablet 40 MEQ PO ×2 (12:47→19:08)
[2021-09-25] MEDS: diphenhydrAMINE 50 mg Capsule PO (13:51)
[2021-09-25] MEDS: hyDRALAzine 10 mg Tablet PO ×2 (15:30→20:39)
[2021-09-25] MEDS: sodium chloride 0.9% (100 ml) 100 ML 10 ML (15:30)
[2021-09-25] MEDS: FUROsemide 10 mg/mL SDV 2mL 20 MG IVP (19:08)
--- NOTE | 2021-09-25 19:59 | PC.NURSE ---
Shift Note Frequent safety and comfort rounds continue. Orders and/or nursing care completed as indicated. Patient monitored for response to intervention and treatment(s). Education provided includes blood transfusionx2 and to monitor any reactions. Discuss to pt and family regarding physician orders such as to get a blood draws in her carli cath and to give all anti-infective meds through the carli cath. Discuss them the rationale behind it. Patient and/or claims representative verbalizes understanding . Will continue to monitor.
[2021-09-25] MEDS: sodium chloride 0.9% 100 mL Bag 50 ML IV (20:05)
[2021-09-25] MEDS: sodium chloride 0.9% (100 ml) 100 ML (23:44)
[2021-09-25] MEDS: ondansetron 2 mg/ML SDV 2 mL 4 MG IVP (23:50)
[2021-09-26] VITALS (12 sets, daily range): BP systolic 137–165; BP diastolic 59–72; PULSE 64–76; RESP 15–18; TEMP 36.8–38.9; O2SAT 93–97
[2021-09-26] MEDS: diphenhydrAMINE 50 mg/mL SDV 1mL 25 MG IVP (00:40)
[2021-09-26 05:00] LABS: Hemoglobin 9.2 g/dL (11.5-15.3); Lymphocytes # 0.6 10^3/uL (0.8-4.8); Lymphocytes % 86.8 %; Mean Corpuscular HGB Conc 34.1 g/dL (30.0-36.0); Mean Corpuscular Volume 96.8 fl (81-99); Monocytes % 5.9 %; Neutrophils % 7.3 %; Nucleated Red Blood Cells % 0 %; Platelet Count 44 10^3/cmm (130-400); Red Blood Count 2.79 10^6/uL (4.1-5.3); Red Cell Distribution Width 19.9 % (12.1-15.1)
[2021-09-26 05:23] LABS: Alanine Aminotransferase 14 U/L (0-33); Albumin Level 3.4 g/dL (3.5-5.2); Alkaline Phosphatase 82 IU/L (35-105); Blood Urea Nitrogen 10 mg/dL (8-23); Calcium 8.9 mg/dL (8.5-10.5); Carbon Dioxide 26 mmol/L (22-29); Chloride 105 mmol/L (98-107); Globulin 2.7 g/dL (1.3-4.6); Glomerular Filtration Rate 99.1 mL/min (90-130); Glucose 129 mg/dL (65-115); Osmolality Calculated 287 mOsm/kg (285-295); Sodium 138 mmol/L (136-145); Total Bilirubin 0.9 mg/dL (0.15-1.2); Total Protein 6.1 g/dL (6.6-8.7)
[2021-09-26 05:25] LABS: Anion Gap 10.7 (5-19); Aspartate Amino Transferase 20 U/L (0-32); Potassium 3.7 mmol/L (3.5-5.1)
[2021-09-26 05:58] LABS: Neutrophils # 0.05 10^3/uL (1.8-7.7); White Blood Count 0.7 10^3/uL (4.0-10.0)
[2021-09-26 05:59] LABS: Slide Review Slide Review Perform
--- NOTE | 2021-09-26 08:29 | PC.SOCIAL ---
IMM Update Pg. 2 of IMM updated and reviewed with patient, who verbalized understanding. Copy provided.
[2021-09-26] MEDS: acyclovir 400 mg Tablet PO ×3 (08:39→20:22)
[2021-09-26] MEDS: hyDRALAzine 10 mg Tablet PO ×3 (08:39→20:21)
[2021-09-26] MEDS: docusate sodium 100 mg Capsule PO ×2 (08:39→20:22)
[2021-09-26] MEDS: cefepime 1,000 MG in sodium chloride 0.9% (plus) 50 ML 100 MG IV ×2 (08:39→21:25)
[2021-09-26] MEDS: escitalopram 10 mg Tablet 20 MG PO (08:39)
[2021-09-26] MEDS: losartan 50 mg Tablet PO ×2 (08:39→18:42)
[2021-09-26] MEDS: amlodipine 5 mg Tablet PO (08:39)
[2021-09-26] MEDS: acetaminophen 325 mg Tablet 650 MG PO ×3 (09:09→23:12)
[2021-09-26] MEDS: linezolid premix 600 MG/300 ML PREMIX 300 MG IV ×2 (11:07→22:20)
--- NOTE | 2021-09-26 14:09 | P.PN_ITS ---
Subjective Subjective: Patient had fevers chills last evening. All blood cultures thus far drawn this admission are negative. She had additional blood draw 1845 through the port and we subsequently infused her antibiotics including linezolid and cefepime via the port. This morning the patient had a temperature of 100.9 but only lasted an hour and has since dropped back down to 99.8. Patient states she feels a little bit better. Vitals/I&O/Wt Last Vital Signs Temp 98.2 F 09/26/21 14:00 Pulse 67 09/26/21 11:18 Resp 18 09/26/21 11:18 BP 153/66 09/26/21 11:18 Pulse Ox 96 09/26/21 11:18 09/25/21 09/26/21 09/26/21 22:59 06:59 14:59 Intake Total 995 / 1945 450 / 2395 715 / 715 Balance 995 / 1945 450 / 2395 715 / 715 Physical Exam Narrative: General well-developed well-nourished female in no acute cardiopulmonary stress she is alert artery pleasant CV regular rate and rhythm with a 2/6 systolic ejection murmur heard at the left sternal border. Cardiac tones loud mildly hyperdynamic. Lungs clear to auscultation bilaterally abdomen positive bowel sounds soft nontender calves nontender supratip edema oropharynx no thrush Data : 09/26/21 04:46 09/26/21 04:46 Micro: Microbiology 09/24/21 22:30 Blood Culture - Preliminary Blood NEGATIVE TO DATE 09/24/21 22:25 Blood Culture - Preliminary Blood NEGATIVE TO DATE 09/25/21 18:45 Blood Culture - Preliminary Blood SPECIMEN COLLECTED 09/25/21 18:40 Blood Culture - Preliminary Blood SPECIMEN COLLECTED 09/25/21 11:19 Occult Blood (FIT) - Final Stool 09/23/21 17:36 Legionella Urinary Antigen - Final Urine,Clean Catch Bacterial Antigens - Final A&P Assessment and plan (1) Fever and neutropenia: I suspect this is a port infection. Following discussion with Dr. Quintana and with Dr. Bradshaw's office I am awaiting culture and response to antibiotics. Sed rate white count BMP and procalcitonin to be done in the morning Status: Acute (2) Acute myeloblastic leukemia, not having achieved remission: White count hematocrit and platelets slightly improved following antibiotic treatment as well as 2 units packed red cells given yesterday. Status: Acute Attestations Medical Necessity Statement*: Patient to be monitored closely for neutropenic fevers and awaiting blood cultures from the port. I have called Dr. Bradshaw's office and left message with the staff and spoken with the nurse practitioner on-call. Time Spent in Patient Care: Greater than 35 minutes Coding Level of Care Code Acute Assisted Living Housekeeper for [facility] Fwd Diagnoses Fever and neutropenia D70.9; R50.81 Acute myeloblastic leukemia, not having achieved remission C92.00
[2021-09-27] VITALS (9 sets, daily range): BP systolic 140–156; BP diastolic 56–72; PULSE 68–79; RESP 13–22; TEMP 36.9–38.2; O2SAT 86–97
[2021-09-27] MEDS: hyDROXYzine 25 mg Capsule PO (01:32)
[2021-09-27 04:55] LABS: Hematocrit 26.3 % (37.0-47.0); Hemoglobin 8.6 g/dL (11.5-15.3); Lymphocytes # 0.4 10^3/uL (0.8-4.8); Lymphocytes % 83.3 %; Mean Corpuscular HGB Conc 32.7 g/dL (30.0-36.0); Mean Corpuscular Hemoglobin 32.5 pg (28.0-34.0); Mean Corpuscular Volume 99.2 fl (81-99); Monocytes % 4.2 %; Neutrophils % 12.5 %; Nucleated Red Blood Cells % 0 %; Platelet Count 40 10^3/cmm (130-400); Red Blood Count 2.65 10^6/uL (4.1-5.3)
[2021-09-27 05:24] LABS: Anion Gap 11.3 (5-19); Blood Urea Nitrogen 8 mg/dL (8-23); Calcium 8.7 mg/dL (8.5-10.5); Carbon Dioxide 26 mmol/L (22-29); Chloride 104 mmol/L (98-107); Glomerular Filtration Rate 122.3 mL/min (90-130); Glucose 112 mg/dL (65-115); Osmolality Calculated 285 mOsm/kg (285-295); Potassium 3.3 mmol/L (3.5-5.1); Sodium 138 mmol/L (136-145)
[2021-09-27 05:25] LABS: Mean Platelet Volume 11.7 fL (7.4-10.4)
[2021-09-27 05:26] LABS: Slide Review Slide Review Perform
[2021-09-27 05:28] LABS: Erythrocyte Sedimentation Rate 93 mm/hr (0-15); Neutrophils # 0.06 10^3/uL (1.8-7.7); White Blood Count 0.5 10^3/uL (4.0-10.0)
[2021-09-27] MEDS: escitalopram 10 mg Tablet 20 MG PO (07:49)
[2021-09-27] MEDS: acyclovir 400 mg Tablet PO ×3 (07:49→19:57)
[2021-09-27] MEDS: amlodipine 5 mg Tablet PO (07:49)
[2021-09-27] MEDS: losartan 50 mg Tablet PO ×2 (07:49→17:08)
[2021-09-27] MEDS: hyDRALAzine 10 mg Tablet PO ×3 (07:49→19:57)
[2021-09-27] MEDS: docusate sodium 100 mg Capsule PO ×3 (07:49→19:57)
[2021-09-27] MEDS: acetaminophen 325 mg Tablet 650 MG PO ×3 (07:50→21:33)
[2021-09-27] MEDS: cefepime 1,000 MG in sodium chloride 0.9% (plus) 50 ML 100 MG IV ×2 (07:50→19:56)
[2021-09-27] MEDS: linezolid premix 600 MG/300 ML PREMIX 300 MG IV ×2 (09:57→22:09)
--- NOTE | 2021-09-27 10:20 | PM.PN ---
Subjective Subjective: Patient had fevers again last evening. All blood cultures thus far drawn this admission are negative. She had additional blood draw 09/25/21 1845 through the port and we subsequently infused her antibiotics including linezolid and cefepime via the port. Patient is very anxious about having her port removed but I have spoken with Dr. Quintana as well as Annalisa MARTIN who spoke with Dr. Bradshaw and the logic is that if the port is the only source of infection not excluded then the port needs to be removed. I spoke with Dr. Alejandre and he is arranging for port removal in the morning. Patient will be n.p.o. Anticipate platelet transfusion immediately preceding and during the procedure due to platelet count of 20 Vitals/I&O/Wt Last Vital Signs Temp 100.8 F H 09/27/21 07:38 Pulse 77 09/27/21 07:38 Resp 22 H 09/27/21 07:38 BP 156/63 09/27/21 07:49 Pulse Ox 86 L 09/27/21 07:38 09/26/21 09/27/21 09/27/21 22:59 06:59 14:59 Intake Total 815 / 1530 790 / 2320 415 / 415 Balance 815 / 1530 790 / 2320 415 / 415 Weight last 48 hrs Weight 62.732 kg Physical Exam Narrative: General well-developed well-nourished female in no acute cardiopulmonary stress she is alert artery pleasant CV regular rate and rhythm with a 2/6 systolic ejection murmur heard at the left sternal border. Cardiac tones loud mildly hyperdynamic. Lungs clear to auscultation bilaterally Data : 09/27/21 04:33 09/27/21 04:33 Micro: Microbiology 09/25/21 18:45 Blood Culture - Preliminary Blood NEGATIVE TO DATE 09/25/21 18:40 Blood Culture - Preliminary Blood NEGATIVE TO DATE A&P Assessment and plan (1) Fever and neutropenia: I suspect this is a port infection. Following discussion with Dr. Quintana and with Annalisa MARTIN and Dr. Alejandre we intend to have port removed tomorrow Sed rate white count mildly elevated but procalcitonin normal Status: Acute (2) Acute myeloblastic leukemia, not having achieved remission: White count hematocrit and platelets slightly improved following antibiotic treatment as well as 2 units packed red cells given yesterday 09/25/2021 Status: Acute Attestations Medical Necessity Statement*: Needs continued monitoring for fever source and neutropenic fever with possible port infection Time Spent in Patient Care: Greater than 35 minutes Coding Level of Care Code Acute Front Tender for [facility] Fwd Diagnoses Fever and neutropenia D70.9; R50.81 Acute myeloblastic leukemia, not having achieved remission C92.00
[2021-09-27 18:53] LABS: Aspergillus AG,EIA,Serum NOT DETECTED; Aspergillus Galactomannan Inde <0.50
[2021-09-27] MEDS: lanolin oint 7 gm 1 APPLIC TOPICAL (20:10)
--- NOTE | 2021-09-27 20:39 | P.CONIM_ITS ---
Providers/Reason For Consult Consulting Physician/Specialty*: Dr. Gilles DO Reason for Consult*: mediport removal Attending Physician: Jake Calix MD Primary Care Provider: Mercy Rosales MD History of Present Illness History of Present Illness Eulalia Kaplan is a 71 year old female who has been experiencing fever along with neutropenia. Blood cultures have been negative and all sources have been ruled out other than her Mediport. She not complaining of any pain. General surgery was consulted for Mediport removal. She has chronically low platelets also. Review of Systems General: Reports: 10 or more systems reviewed and unremarkable except in HPI and below Medications/Allergies Home Medications Medication Instructions Recorded Confirmed Last Taken Type acyclovir 400 mg tablet 400 mg PO TID@09,,06/30/20 09/23/21 09/03/21 History ondansetron 8 mg disintegrating 8 mg PO Q6H PRN 06/30/20 09/23/21 08/11/21 History tablet posaconazole 100 mg tablet,delayed 200 mg PO QAM 07/16/20 09/23/21 09/03/21 History release (Noxafil) docusate sodium 100 mg capsule 100 mg PO TID 11/18/20 09/23/21 09/03/21 History famotidine-Ca carb-mag hydrox 10 1 tab PO QPM PRN 11/18/20 09/23/21 08/11/21 History mg-800 mg-165 mg chewable tablet (Acid Shipping Clerk Crating Complete (famotidine)) melatonin 5 mg tablet 3 mg PO BEDTIME PRN 11/18/20 09/23/21 09/03/21 History acetaminophen 500 mg tablet 500 mg PO Q6H PRN 12/13/20 09/23/21 08/11/21 History (Tylenol Extra Strength) oxygen-air delivery systems 12/13/20 09/23/21 Unknown History losartan 50 mg tablet 50 mg PO BID 08/08/21 09/23/21 09/03/21 History potassium chloride 10 mEq 10 meq PO DAILY 08/08/21 09/23/21 08/11/21 History capsule,extended release venetoclax 100 mg tablet 100 mg PO DAILY #14 tab 08/31/21 09/23/21 Unknown Rx (Venclexta) Lactobacillus acidophilus 100 mmu cells PO DAILY 09/01/21 09/23/21 09/03/21 History biotin 10,000 mcg capsule 10,000 mcg PO DAILY 09/01/21 09/23/21 09/03/21 History escitalopram oxalate 20 mg tablet 20 mg PO DAILY 09/01/21 09/23/21 09/03/21 History (Lexapro) negebjmjzfxl-rfiyvhlx-abzcki tablet 1 tab PO DAILY 09/01/21 09/23/21 09/03/21 History lidocaine-prilocaine 2.5 %-2.5 % 1 applic TOPICAL ONCE #1 ea 09/05/21 09/23/21 Unknown Rx topical kit amlodipine 5 mg tablet 5 mg PO DAILY 09/23/21 09/23/21 Unknown History Allergies Allergy/AdvReac Type Severity Reaction Status Date / Time adhesive Allergy Unknown Unknown Verified 09/04/21 06:01 amoxicillin Allergy Rash, Verified 09/04/21 06:01 tongue swelling Penicillins Allergy Unknown Verified 09/04/21 06:01 Sulfa (Sulfonamide Allergy Rash Verified 09/04/21 06:01 Antibiotics) vancomycin AdvReac Mild ADR-Itching Verified 09/24/21 11:25 Current Medications Generic Name Dose Route Start Last Admin Trade Name Freq PRN Reason Stop Dose Admin Acetaminophen 650 mg 09/26/21 14:07 09/27/21 16:05 Acetaminophen 325 Mg Tablet PO 650 mg Q4H PRN Administration Mild/Mod Pain Or Temp >/= 101 Acyclovir 400 mg 09/23/21 14:00 09/27/21 19:57 Acyclovir 400 Mg Tablet PO 400 mg TID@09,14,20 HOLLY Administration Amlodipine Besylate 5 mg 09/24/21 09:00 09/27/21 07:49 Amlodipine 5 Mg Tablet PO 5 mg DAILY HOLLY Administration Docusate Sodium 100 mg 09/23/21 15:00 09/27/21 19:57 Docusate Sodium 100 Mg Capsule PO 100 mg TID HOLLY Administration Escitalopram Oxalate 20 mg 09/23/21 11:00 09/27/21 07:49 Escitalopram 10 Mg Tablet PO 20 mg DAILY HOLLY Administration Hydralazine HCl 10 mg 09/25/21 15:00 09/27/21 19:57 Hydralazine 10 Mg Tablet PO 10 mg TID HOLLY Administration Cefepime HCl 1,000 mg/ Sodium 50 mls @ 100 mls/hr 09/24/21 09:00 09/27/21 20:27 Chloride IV Infused Q12H HOLLY Infusion Protocol Voriconazole 250 mg/ Sodium 125 mls @ 100 mls/hr 09/24/21 15:30 09/27/21 09:57 Chloride IV Infused Q12H HOLLY Infusion Linezolid 600 mg in 300 mls @ 300 mls/hr 09/24/21 11:30 09/27/21 11:24 Zyvox Premix IV Infused Q12H HOLLY Infusion Protocol Lanolin 1 applic 09/27/21 20:03 09/27/21 20:10 Lanolin Oint 7 Gm TOPICAL 1 applic PRN PRN Administration DRYNESS Lidocaine HCl 1 applic 09/23/21 11:25 09/23/21 13:11 Lidocaine 2% Jelly 5 Ml TOPICAL 1 applic PRN PRN Administration PAIN Losartan Potassium 50 mg 09/23/21 18:00 09/27/21 17:08 Losartan 50 Mg Tablet PO 50 mg BID HOLLY Administration Ondansetron HCl 4 mg 09/23/21 01:29 09/25/21 23:50 Ondansetron 2 Mg/Ml Sdv 2 Ml IVP 4 mg Q8H PRN Administration vomiting, or N/V if npo PFSH Acute PFSH: Medical History AML (acute myeloblastic leukemia) Diagnosed in 2020 and she is currently undergoing chemotherapy at [facility] [place]--this is being managed by the oncology doctors in [place] as well COVID-19 Depression Symptoms controlled on Lexapro managed by her primary care provider Lichen sclerosus Diagnosed in January 2019 with a vulvar biopsy--- symptoms well controlled with consistent clobetasol use Ulcerative colitis States that she has had ulcerative colitis since about the age of 32. She states she last had a colonoscopy in [place] in 2018 that was within normal limits. She is not currently on any medication for this Surgical History Port-A-Cath in place (09/04/21) right IJ S/P section Performed in the 1970s via vertical midline infraumbilical incision Family History Sister Hyperlipidemia Hypertension Vulvar cancer Brother Hyperlipidemia Hypertension Diabetes Father Stroke Denies family history of Cervical cancer Colon cancer Ovarian cancer DVT (deep venous thrombosis) Breast cancer Pulmonary embolism Uterine cancer Social History Smoking and tobacco status: never smoked Alcohol intake: unknown Vitals/I&O/Wt Last Vital Signs Temp 99.2 F 09/27/21 16:00 Pulse 68 09/27/21 11:21 Resp 13 09/27/21 11:21 BP 144/56 09/27/21 17:08 Pulse Ox 94 09/27/21 11:21 09/27/21 09/27/21 09/27/21 06:59 14:59 22:59 Intake Total 790 / 2320 835 / 835 50 / 885 Balance 790 / 2320 835 / 835 50 / 885 Weight last 48 hrs Weight 138 lb 4.8 oz Physical Exam Narrative: General : Patient is well developed , no acute distress, oriented x3 Head : Normal cephalic, a-traumatic. Ears : Pinnae and external canal are normal. Hearing is normal. Eyes : PERRLA, Sclera and injection are normal. No conjunctival discharge. Nose : Mucous membranes are without erythema. Throat : buccal mucosa is normal, gums are without significant recession or hype rtrophy. Lungs : Equal chest rise bilaterally, no use of accessory muscles, trachea is midline. Cor : Rate and rhythm are normal. Abdomen : Soft, ND, NT, no g/r/m Extremities : No edema, no cyanosis or clubbing, dorsalis pedis pulses are present bilaterally, non-tender to palpation of calves. Upper extremities are normal bilaterally. Back : non-tender to palpation, no CVA tenderness. Neuro : CN II - XII intact, Upper and lower extremities have equal and full strength Data : 09/27/21 04:33 09/27/21 04:33 Micro: Microbiology 09/25/21 18:45 Blood Culture - Preliminary Blood NEGATIVE TO DATE 09/25/21 18:40 Blood Culture - Preliminary Blood NEGATIVE TO DATE A&P Assessment and plan (1) Fever and neutropenia: Status: Acute (2) Acute myeloblastic leukemia, not having achieved remission: Status: Acute Plan To OR tomorrow for Mediport removal. Patient will receive platelet transfusion prior to surgery. The risks and benefits of the procedure, including but not limited to, bleeding, infection, damage to surrounding structures, scar, numbness, pain, pneumothorax requiring thoracostomy tube, were explained to the patient. He/She is understanding of the risks and wishes to proceed. Coding Level of Care Code Acute Casing Tester for [facility] Diagnoses Fever and neutropenia D70.9; R50.81 Acute myeloblastic leukemia, not having achieved remission C92.00
[2021-09-28] VITALS (22 sets, daily range): BP systolic 113–177; BP diastolic 52–76; PULSE 61–75; RESP 16–19; TEMP 36.5–37.7; O2SAT 91–98
[2021-09-28] MEDS: acetaminophen 325 mg Tablet 650 MG PO ×2 (02:22→08:12)
[2021-09-28 02:50] LABS: Hematocrit 28.4 % (37.0-47.0); Hemoglobin 9.5 g/dL (11.5-15.3); Lymphocytes # 0.5 10^3/uL (0.8-4.8); Lymphocytes % 74.6 %; Mean Corpuscular HGB Conc 33.5 g/dL (30.0-36.0); Mean Corpuscular Hemoglobin 32.6 pg (28.0-34.0); Mean Corpuscular Volume 97.6 fl (81-99); Neutrophils % 19.4 %; Nucleated Red Blood Cells % 0 %; Platelet Count 35 10^3/cmm (130-400); Red Blood Count 2.91 10^6/uL (4.1-5.3); Red Cell Distribution Width 20.2 % (12.1-15.1)
[2021-09-28 03:09] LABS: Slide Review Slide Review Perform
[2021-09-28 03:11] LABS: Neutrophils # 0.13 10^3/uL (1.8-7.7); White Blood Count 0.7 10^3/uL (4.0-10.0)
--- NOTE | 2021-09-28 03:14 | PC.NURSE ---
Around 0220 pt called this RN to room stating it's time for my tylenol. I'm starting to get chilled again. RN took temperature and noted to be 98.2 orally. Pt requesting her tylenol for fever. This RN educated pt on a fever and usage of Tylenol. Continued to request medication. Tylenol administered as ordered per emar.
[2021-09-28] MEDS: ondansetron 2 mg/ML SDV 2 mL 4 MG IVP (08:06)
[2021-09-28] MEDS: losartan 50 mg Tablet PO (09:19)
[2021-09-28] MEDS: hyDRALAzine 10 mg Tablet PO ×2 (09:19→20:26)
[2021-09-28] MEDS: amlodipine 5 mg Tablet PO (09:19)
[2021-09-28] MEDS: docusate sodium 100 mg Capsule PO ×2 (09:19→20:26)
[2021-09-28] MEDS: cefepime 1,000 MG in sodium chloride 0.9% (plus) 50 ML 100 MG IV ×2 (09:19→20:26)
[2021-09-28] MEDS: escitalopram 10 mg Tablet 20 MG PO (09:19)
[2021-09-28] MEDS: acyclovir 400 mg Tablet PO (09:21)
[2021-09-28] MEDS: linezolid premix 600 MG/300 ML PREMIX 300 MG IV ×2 (10:34→22:12)
--- NOTE | 2021-09-28 11:43 | PC.SOCIAL ---
IMM Update Pg.2 of IMM Updated and reviewed with patient, who verbalized understanding. Copy provided.
--- NOTE | 2021-09-28 11:54 | PC.NURSE ---
When scanning platelets TAR showed that this nurse was late hanging and starting but look at transfusion paper signature and time that product was handed off (see paper in chart) to start time was within the alotted time to spike and administer.
[2021-09-28] MEDS: sodium chloride 0.9% (100 ml) 100 ML 50 ML (11:57)
--- NOTE | 2021-09-28 14:04 | W.PM.OPSUD ---
Surgery/Procedure H&P Update DATE OF PROCEDURE: September 28, 2021 DATE H&P PERFORMED: 09/22/21 CHANGES TO PREVIOUS DOCUMENTATION: none PREOP DIAGNOSIS: aml PRIMARY INDICATION FOR PROCEDURE: infection of unknown origin PLANNED PROCEDURE: Operation Date: 09/28/21 13:10 Proposed Procedures p Portacath Removal(Not Applicable) - Gustavo Campoverde DO
--- NOTE | 2021-09-28 14:09 | P.PN_ITS ---
Subjective Subjective: No new complaints Vitals/I&O/Wt Last Vital Signs Temp 98.9 F 09/28/21 13:46 Pulse 67 09/28/21 13:46 Resp 18 09/28/21 13:46 BP 156/70 09/28/21 13:46 Pulse Ox 97 09/28/21 13:46 09/27/21 09/28/21 09/28/21 22:59 06:59 14:59 Intake Total 655 / 1490 300 / 1790 705 / 705 Balance 655 / 1490 300 / 1790 705 / 705 Weight last 48 hrs Weight 138 lb 4.8 oz Physical Exam Narrative: Gen: NAD, AAOx3 Skin: no erythema/exudate Data : 09/28/21 02:34 09/27/21 04:33 Micro: Microbiology 09/22/21 21:04 Blood Culture - Final Blood NO GROWTH AFTER 5 DAYS 09/22/21 21:04 Blood Culture - Final Blood NO GROWTH AFTER 5 DAYS A&P Assessment and plan (1) Fever and neutropenia: Status: Acute Plan To OR tomorrow for Mediport removal.? Patient will receive platelet transfusion prior to surgery. The risks and benefits of the procedure, including but not limited to, bleeding, infection, damage to surrounding structures, scar, numbness, pain, pneumothorax requiring thoracostomy tube, were explained to the patient.? She is understanding of the risks and wishes to proceed. Attestations Medical Necessity Statement*: Continued hospitalization depends upon the hospitalist who is primary Coding Level of Care Code Acute Adjutant General for [facility] Diagnoses Fever and neutropenia D70.9; R50.81
--- NOTE | 2021-09-28 15:40 | P.PN_ITS ---
Subjective Subjective: Patient anxious about having her port removed. She wonders if there is any other options. We discussed that her current situation is that she cannot get chemotherapy or be off her antibiotics unless we want to trial off antibiotics hoping that this is a drug fever or not a bacterial infection. There is risk with that that she would become very sick. Additionally we discussed that she has been on antibiotics already while some of the cultures were drawn and before we ese any from the port so it may be that the port is infected but she still is not growing bacteria in her port blood culture because the infection is not severe enough. I do not recommend waiting. Furthermore Dr. Bradshaw directed me via Annalisa Fang, Dr. Alejandre and I all do not see a better option than pulling the port. Patient wanted me to speak with Dr. Lee a an oncologist at [facility] but I explained to her that because this is not a cancer concern but a fever and infectious concern that would not be helpful. Deanne arevalo pulled her family and decided to proceed with the port removal Vitals/I&O/Wt Last Vital Signs Temp 98.9 F 09/28/21 13:46 Pulse 67 09/28/21 13:46 Resp 18 09/28/21 13:46 BP 156/70 09/28/21 13:46 Pulse Ox 97 09/28/21 13:46 09/28/21 09/28/21 09/28/21 06:59 14:59 22:59 Intake Total 300 / 1790 805 / 805 Balance 300 / 1790 805 / 805 Weight last 48 hrs Weight 62.732 kg Physical Exam Narrative: General well-developed well-nourished female in no acute cardiopulmonary stress she is alert artery pleasant CV regular rate and rhythm with a 2/6 systolic ejection murmur heard at the left sternal border. Cardiac tones loud mildly hyperdynamic. Lungs clear to auscultation bilaterally Right chest around the port is without tenderness or inflammation no increased warmth Data : 09/28/21 02:34 09/27/21 04:33 Micro: Microbiology 09/22/21 21:04 Blood Culture - Final Blood NO GROWTH AFTER 5 DAYS 09/22/21 21:04 Blood Culture - Final Blood NO GROWTH AFTER 5 DAYS A&P Assessment and plan (1) Fever and neutropenia: I suspect this is a port infection. Following discussion with Dr. Quintana and with Annalisa MARTIN and Dr. Alejandre we intend to have port removed tomorrow Sed rate 93 white count mildly low but procalcitonin normal Status: Acute (2) Acute myeloblastic leukemia, not having achieved remission: White count hematocrit and platelets slightly improved following antibiotic treatment as well as 2 units packed red cells given yesterday 09/25/2021 Status: Acute Attestations Medical Necessity Statement*: IV antibiotics for neutropenic fever and proceed to port removal Time Spent in Patient Care: Greater than 35 minutes Coding Level of Care Code Acute Three Dimensional Map Modeler for [facility] Fwd Diagnoses Fever and neutropenia D70.9; R50.81 Acute myeloblastic leukemia, not having achieved remission C92.00
--- NOTE | 2021-09-28 16:20 | ANES.PREANE2 ---
Pre-Anesthetic Assessment Height/Weight: Height 1.55 m Weight 62.732 kg Temp Pulse Resp BP Pulse Ox 97.7 F 75 18 177/70 98 09/28/21 15:35 09/28/21 15:35 09/28/21 15:35 09/28/21 15:35 09/28/21 15:35 Preop Diagnosis: aml Operation Date: 09/28/21 13:10 Proposed Procedures p Portacath Removal(Not Applicable) - Gustavo Campoverde DO Familial anesthetic complications: None Was Beta Ibis taken within 24 hours: N/A Was Clonidine taken within 24 hours: N/A Last intake: Intake Last Liquid Date 10/17/21 Last Liquid Time 23:00 Last Solid Date 09/27/21 Last Solid Time 21:00 Social No alcohol and No tobacco Exam alert, oriented x 3, clear to auscultation bilaterally and regular rate & rhythm Airway Submandibular: within normal limits Cervical ROM: within normal limits Mallampati: Class II Dentition: full CV/HEM Hypertension Leukemia GI Gastroesophageal Reflux Disease Neuropsych Depression Anesthetic Plan ASA status: 3 Anesthesia: MAC Medications/Allergies Home Medications Medication Instructions Recorded Confirmed Last Taken Type acyclovir 400 mg tablet 400 mg PO TID@09,14,20 06/30/20 09/23/21 09/03/21 History ondansetron 8 mg disintegrating 8 mg PO Q6H PRN 06/30/20 09/23/21 08/11/21 History tablet posaconazole 100 mg tablet,delayed 200 mg PO QAM 07/16/20 09/23/21 09/03/21 History release (Noxafil) docusate sodium 100 mg capsule 100 mg PO TID 11/18/20 09/23/21 09/03/21 History famotidine-Ca carb-mag hydrox 10 1 tab PO QPM PRN 11/18/20 09/23/21 08/11/21 History mg-800 mg-165 mg chewable tablet (Acid Spoke Maker Complete (famotidine)) melatonin 5 mg tablet 3 mg PO BEDTIME PRN 11/18/20 09/23/21 09/03/21 History acetaminophen 500 mg tablet 500 mg PO Q6H PRN 12/13/20 09/23/21 08/11/21 History (Tylenol Extra Strength) oxygen-air delivery systems 12/13/20 09/23/21 Unknown History losartan 50 mg tablet 50 mg PO BID 08/08/21 09/23/21 09/03/21 History potassium chloride 10 mEq 10 meq PO DAILY 08/08/21 09/23/21 08/11/21 History capsule,extended release venetoclax 100 mg tablet 100 mg PO DAILY #14 tab 08/31/21 09/23/21 Unknown Rx (Venclexta) Lactobacillus acidophilus 100 mmu cells PO DAILY 09/01/21 09/23/21 09/03/21 History biotin 10,000 mcg capsule 10,000 mcg PO DAILY 09/01/21 09/23/21 09/03/21 History escitalopram oxalate 20 mg tablet 20 mg PO DAILY 09/01/21 09/23/21 09/03/21 History (Lexapro) okkszvfqvbzy-bpvueifb-ysmoxl tablet 1 tab PO DAILY 09/01/21 09/23/21 09/03/21 History lidocaine-prilocaine 2.5 %-2.5 % 1 applic TOPICAL ONCE #1 ea 09/05/21 09/23/21 Unknown Rx topical kit amlodipine 5 mg tablet 5 mg PO DAILY 09/23/21 09/23/21 Unknown History Allergies Allergy/AdvReac Type Severity Reaction Status Date / Time adhesive Allergy Unknown Unknown Verified 09/04/21 06:01 amoxicillin Allergy Rash, Verified 09/04/21 06:01 tongue swelling Penicillins Allergy Unknown Verified 09/04/21 06:01 Sulfa (Sulfonamide Allergy Rash Verified 09/04/21 06:01 Antibiotics) vancomycin AdvReac Mild ADR-Itching Verified 09/24/21 11:25 Current Medications Generic Name Dose Route Start Last Admin Trade Name Cam PRN Reason Stop Dose Admin Acetaminophen 650 mg 09/26/21 14:07 09/28/21 08:12 Acetaminophen 325 Mg Tablet PO 650 mg Q4H PRN Administration Mild/Mod Pain Or Temp >/= 101 Acyclovir 400 mg 09/23/21 14:00 09/28/21 14:10 Acyclovir 400 Mg Tablet PO Not Given TID@09,14,20 HOLLY Amlodipine Besylate 5 mg 09/24/21 09:00 09/28/21 09:19 Amlodipine 5 Mg Tablet PO 5 mg DAILY HOLLY Administration Docusate Sodium 100 mg 09/23/21 15:00 09/28/21 14:12 Docusate Sodium 100 Mg Capsule PO Not Given TID HOLLY Escitalopram Oxalate 20 mg 09/23/21 11:00 09/28/21 09:19 Escitalopram 10 Mg Tablet PO 20 mg DAILY HOLLY Administration Hydralazine HCl 10 mg 09/25/21 15:00 09/28/21 14:12 Hydralazine 10 Mg Tablet PO Not Given TID HOLLY Cefepime HCl 1,000 mg/ Sodium 50 mls @ 100 mls/hr 09/24/21 09:00 09/28/21 10:30 Chloride IV Infused Q12H HOLLY Infusion Protocol Voriconazole 250 mg/ Sodium 125 mls @ 100 mls/hr 09/24/21 15:30 09/28/21 10:31 Chloride IV Infused Q12H HOLLY Infusion Linezolid 600 mg in 300 mls @ 300 mls/hr 09/24/21 11:30 09/28/21 11:37 Zyvox Premix IV Infused Q12H HOLLY Infusion Protocol Lanolin 1 applic 09/27/21 20:03 09/27/21 20:10 Lanolin Oint 7 Gm TOPICAL 1 applic PRN PRN Administration DRYNESS Lidocaine HCl 1 applic 09/23/21 11:25 09/23/21 13:11 Lidocaine 2% Jelly 5 Ml TOPICAL 1 applic PRN PRN Administration PAIN Losartan Potassium 50 mg 09/23/21 18:00 09/28/21 09:19 Losartan 50 Mg Tablet PO 50 mg BID HOLLY Administration Ondansetron HCl 4 mg 09/23/21 01:29 09/28/21 08:06 Ondansetron 2 Mg/Ml Sdv 2 Ml IVP 4 mg Q8H PRN Administration vomiting, or N/V if npo PFSH Anesthesia Medical History AML (acute myeloblastic leukemia) Diagnosed in 2020 and she is currently undergoing chemotherapy at [facility]--this is being managed by the oncology doctors in [place] as well COVID-19 Depression Symptoms controlled on Lexapro managed by her primary care provider Lichen sclerosus Diagnosed in January 2019 with a vulvar biopsy--- symptoms well controlled with consistent clobetasol use Ulcerative colitis States that she has had ulcerative colitis since about the age of 32. She states she last had a colonoscopy in [place] in 2018 that was within normal limits. She is not currently on any medication for this Surgical History Port-A-Cath in place (09/04/21) right IJ S/P section Performed in the via vertical midline infraumbilical incision Family History Sister Hyperlipidemia Hypertension Vulvar cancer Brother Hyperlipidemia Hypertension Diabetes Father Stroke Denies family history of Cervical cancer Colon cancer Ovarian cancer DVT (deep venous thrombosis) Breast cancer Pulmonary embolism Uterine cancer Social History Smoking and tobacco status: never smoked Alcohol intake: unknown Data Anesthesia : 09/28/21 02:34 09/27/21 04:33 Short CBC 09/22/21 09/27/21 09/28/21 Range/Units 23:05 04:33 02:34 WBC 0.5 L* 0.7 L* (4.0-10.0) 10^3/uL Hgb 8.6 L 9.5 L (11.5-15.3) g/dL Hct 26.3 L 28.4 L (37.0-47.0) % MCV 99.2 H 97.6 (81-99) fl Plt Count 40 L 35 L (130-400) 10^3/cmm Neut % (Auto) 12.5 19.4 % Neut # (Auto) 0.06 L* 0.13 L* (1.8-7.7) 10^3/uL Blood Type A Positive Rho(D) Type Positive Antibody Screen Negative Crossmatch See Detail 09/28/21 Range/Units 08:45 WBC (4.0-10.0) 10^3/uL Hgb (11.5-15.3) g/dL Hct (37.0-47.0) % MCV (81-99) fl Plt Count (130-400) 10^3/cmm Neut % (Auto) % Neut # (Auto) (1.8-7.7) 10^3/uL Blood Type A Positive Rho(D) Type Positive Antibody Screen Crossmatch [facility] 09/27/21 04:33 Sodium 138 Potassium 3.3 L Chloride 104 Carbon Dioxide 26 BUN 8 Creatinine 0.5 Glucose 112 Calcium 8.7 Blood Bank 09/28/21 08:45 Blood Type A Positive Rho(D) Type Positive Coags 09/27/21 04:33 ESR 93 H Microbiology 09/22/21 21:04 Blood Culture - Final Blood NO GROWTH AFTER 5 DAYS 09/22/21 21:04 Blood Culture - Final Blood NO GROWTH AFTER 5 DAYS Cardiac Studies: No Data to Display
[2021-09-28] MEDS: sodium chloride 0.9% 1,000 ML 30 ML IV (16:42)
--- NOTE | 2021-09-28 17:38 | PC.NURSE ---
Patient currently in OR, throughout shift patient had been AAOx4 with VSS. OOBTC and to restroom. Cleansed with CHG wipes multiple times awaiting surgery. Received unit of platelets. No reaction noted. NO new events. Family at bedside. Will report at bedside if patient is back on floor prior to shift change.
--- NOTE | 2021-09-28 18:45 | SUR.PHASEI ---
1829 PT TO PACU 5 PT AWAKE ALERT TALKATIVE VSS MONITOR SR NO ECTOPY, RT CHEST DRESSING D/I IV TO LT WRIST #20 WITH NS 500 ML UP AT KVO RATE PER GRAVITY.
--- NOTE | 2021-09-28 22:10 | PM.OP ---
Operative Report Date of procedure: September 28, 2021 Pre-op diagnosis: Preop Diagnosis fever of unknown origin Post-op diagnosis: Same, status post Mediport removal Procedure done: Mediport removal Specimens removed/disposition: Mediport with catheter tip sent for culture Surgeon: Dr. Gustavo Campoverde DO Estimated blood loss: 2 Complications: None apparent Brief History: This is a 71-year-old female who is been having fever of unknown origin. She is neutropenic. The last site to be ruled out is the Mediport. Therefore we are removing her Mediport. Procedure: Patient was wheeled in the operative room placed on the OR table in the supine position. She was given platelets preoperatively. Chest wall was inspected prepped and draped in usual sterile fashion. Adequate anesthesia was provided by the department of anesthesia. She was already on antibiotics. 2% lidocaine with epinephrine was used to anesthetize the area of the previous incision for the Mediport. Prior to this a timeout was performed and all present were in agreement. The previous incision was incised with a 15 blade scalpel. Dissection was carried down to the Mediport with Bovie cautery. The Mediport was grasped. Sutures were cut. The Mediport was then removed while holding pressure at the internal jugular vein. 5 minutes of pressure was held. Pinpoint bleeding at the incision site was controlled with electrocautery. The tract that the Mediport catheter went through was closed with 3-0 Vicryl in a [id number]-hv-cotaf fashion. Due to infection risk the skin was closed with 3-0 nylon in a simple interrupted fashion. The skin was washed and dried. A bandage was applied. Patient tolerated the procedure well.
[2021-09-29] VITALS (8 sets, daily range): BP systolic 139–166; BP diastolic 55–74; PULSE 61–70; RESP 14–20; TEMP 36.8–38.1; O2SAT 91–97
[2021-09-29] MEDS: diphenhydrAMINE 50 mg/mL SDV 1mL 12.5 MG IVP (01:33)
[2021-09-29] MEDS: acetaminophen 325 mg Tablet 650 MG PO (04:00)
[2021-09-29] MEDS: escitalopram 10 mg Tablet 20 MG PO (08:20)
[2021-09-29] MEDS: amlodipine 5 mg Tablet PO (08:20)
[2021-09-29] MEDS: losartan 50 mg Tablet PO ×2 (08:20→18:57)
[2021-09-29] MEDS: acyclovir 400 mg Tablet PO ×3 (08:20→20:32)
[2021-09-29] MEDS: docusate sodium 100 mg Capsule PO ×3 (08:20→20:32)
[2021-09-29] MEDS: hyDRALAzine 10 mg Tablet PO ×3 (08:20→20:32)
[2021-09-29] MEDS: cefepime 1,000 MG in sodium chloride 0.9% (plus) 50 ML 100 MG IV ×2 (08:43→20:33)
--- NOTE | 2021-09-29 11:00 | ANE.PACU2 ---
Inpatient post-anesthesia follow up: Airway intact: Yes Vital signs: Temperature 98.6 F Pulse Rate 61 Respiratory Rate 20 Blood Pressure 150/55 Pulse Oximetry 91 Oxygen Delivery Me thod [ Room Air Current Rate & Del carlos] Oxygen Delivery Me thod Room Air Oxygen Flow Rate Fraction of Inspir ed Oxygen Hydration adequate: Yes Nausea and vomiting: No Pain level: 1 Mental status: Baseline
[2021-09-29] MEDS: linezolid premix 600 MG/300 ML PREMIX 300 MG IV ×2 (12:32→23:02)
--- NOTE | 2021-09-29 13:39 | PM.PN ---
Subjective Subjective: 71-year-old female admitted with neutropenic fever last white count over 2 was on 09/11/2021 when white count was 3.8 Platelet count at that time was 41 Last evening she had her port removed once platelets were available for the surgery. This morning she had her last fever at 4 in the morning and states that she has not had the fevers since then. This is a departure and improvement from the course of this admission Vitals/I&O/Wt Last Vital Signs Temp 98.5 F 09/29/21 12:00 Pulse 63 09/29/21 12:00 Resp 19 H 09/29/21 12:00 BP 155/62 09/29/21 12:00 Pulse Ox 97 09/29/21 12:00 09/28/21 09/29/21 09/29/21 22:59 06:59 14:59 Intake Total 530 / 1335 540 / 1875 535 / 535 Output Total 10 / 10 Balance 520 / 1325 540 / 1865 535 / 535 Physical Exam Narrative: General well-developed well-nourished female in no acute cardiopulmonary stress she is alert artery pleasant CV regular rate and rhythm with a 2/6 systolic ejection murmur heard at the left sternal border. Lungs clear to auscultation bilaterally Right chest around the port removal site with simple sutures in place and no pus Data : 09/28/21 02:34 09/27/21 04:33 Micro: Microbiology 09/23/21 13:40 Blood Culture - Final Blood NO GROWTH AFTER 5 DAYS 09/23/21 13:40 Blood Culture - Final Blood NO GROWTH AFTER 5 DAYS A&P Assessment and plan (1) Fever and neutropenia: Port has been removed and she seems to have some improvement CBC and CMP tomorrow Status: Acute (2) Acute myeloblastic leukemia, not having achieved remission: Neutropenic. Follow white count and platelets. Anticipate just continuing antibiotics after 48 hours of no fever. PICC line to be placed on Saturday Status: Acute Attestations Medical Necessity Statement*: Patient being monitored for neutropenic fevers and will have PICC line placement prior to discharge Time Spent in Patient Care: Greater than 35 minutes Coding Level of Care Code Acute Supervisor Plate Forming for [facility] Diagnoses Fever and neutropenia D70.9; R50.81 Acute myeloblastic leukemia, not having achieved remission C92.00
[2021-09-29 17:57] LABS: Fungitell 1-3-B Glucan Assay <31 pg/mL; Interpretation NEGATIVE
[2021-09-30] VITALS (8 sets, daily range): BP systolic 152–173; BP diastolic 61–72; PULSE 64–66; RESP 16–18; TEMP 36.6–37.4; O2SAT 95–96
[2021-09-30 04:17] LABS: Basophils % 1.1 %; Hematocrit 25.8 % (37.0-47.0); Hemoglobin 8.5 g/dL (11.5-15.3); Lymphocytes # 0.6 10^3/uL (0.8-4.8); Lymphocytes % 66.7 %; Mean Corpuscular HGB Conc 32.9 g/dL (30.0-36.0); Mean Corpuscular Hemoglobin 32.7 pg (28.0-34.0); Mean Corpuscular Volume 99.2 fl (81-99); Mean Platelet Volume 11.7 fL (7.4-10.4); Monocytes # 0.1 10^3/uL (0.2-0.9); Monocytes % 6.9 %; Neutrophils % 25.3 %; Nucleated Red Blood Cells % 0 %; Platelet Count 77 10^3/cmm (130-400); Red Cell Distribution Width 18.9 % (12.1-15.1)
[2021-09-30 04:28] LABS: Alanine Aminotransferase 18 U/L (0-33); Albumin Level 3.3 g/dL (3.5-5.2); Alkaline Phosphatase 96 IU/L (35-105); Anion Gap 13.6 (5-19); Aspartate Amino Transferase 18 U/L (0-32); Blood Urea Nitrogen 8 mg/dL (8-23); Calcium 8.8 mg/dL (8.5-10.5); Carbon Dioxide 29 mmol/L (22-29); Chloride 103 mmol/L (98-107); Globulin 3.1 g/dL (1.3-4.6); Glomerular Filtration Rate 122.3 mL/min (90-130); Glucose 98 mg/dL (65-115); Osmolality Calculated 292 mOsm/kg (285-295); Potassium 3.6 mmol/L (3.5-5.1); Sodium 142 mmol/L (136-145); Total Bilirubin 0.5 mg/dL (0.15-1.2); Total Protein 6.4 g/dL (6.6-8.7)
[2021-09-30 04:54] LABS: Slide Review Slide Review Perform
[2021-09-30 04:56] LABS: Neutrophils # 0.22 10^3/uL (1.8-7.7); White Blood Count 0.9 10^3/uL (4.0-10.0)
[2021-09-30] MEDS: losartan 50 mg Tablet PO ×2 (09:57→18:08)
[2021-09-30] MEDS: amlodipine 5 mg Tablet PO (09:57)
[2021-09-30] MEDS: hyDRALAzine 10 mg Tablet PO ×3 (09:57→20:51)
[2021-09-30] MEDS: docusate sodium 100 mg Capsule PO ×3 (09:57→20:51)
[2021-09-30] MEDS: acyclovir 400 mg Tablet PO ×3 (10:01→20:50)
[2021-09-30] MEDS: escitalopram 10 mg Tablet 20 MG PO (10:01)
[2021-09-30] MEDS: cefepime 1,000 MG in sodium chloride 0.9% (plus) 50 ML 100 MG IV ×2 (10:48→21:09)
--- NOTE | 2021-09-30 11:05 | PC.SOCIAL ---
IMM Update pg 2 of IMM updated and reviewed w/ patient. Copy provided and Copy in chart updated.
--- NOTE | 2021-09-30 11:06 | XRR_ITS ---
PROCEDURE INFORMATION: Exam: XR Chest Exam date and time: 09/30/2021 6:20 PM Age: 71 years old Clinical indication: Dyspnea; Additional info: Rule out pneumonia TECHNIQUE: Imaging protocol: XR of the chest. Views: 2 views. COMPARISON: CT chest con [id number] 09/30/2021 6:19 PM FINDINGS: Lungs: Unremarkable. No consolidation. Pleural spaces: Unremarkable. No pleural effusion. No pneumothorax. Heart/Mediastinum: Unremarkable. No cardiomegaly. Bones/joints: Unremarkable. XR/XR chest 2V* [id number] IMPRESSION: No acute findings.
[2021-09-30] MEDS: linezolid premix 600 MG/300 ML PREMIX 300 MG IV ×2 (11:38→23:00)
--- NOTE | 2021-09-30 13:00 | PM.PN ---
Subjective Subjective: Seen this morning. Patient did have a fever 100.5 yesterday. Otherwise she feels fine. She does report this morning that she had some coughing up of streaks of blood. She has been coughing more frequently now. She also has a Mediport that was removed. Patient will eventually be getting a PICC line as an alternate route for chemo. She sees Dr. Bradshaw. She says that if any medical decisions are to be made-discussed with Dr. Bradshaw before doing so in regards to her cancer/PICC line/further antibiotic therapy. Vitals/I&O/Wt Last Vital Signs Temp 98.2 F 09/30/21 12:00 Pulse 66 09/30/21 12:00 Resp 17 09/30/21 12:00 BP 158/66 09/30/21 12:00 Pulse Ox 95 09/30/21 12:00 09/29/21 09/30/21 09/30/21 22:59 06:59 14:59 Intake Total 715 / 1250 900 / 2150 480 / 480 Output Total 400 / 400 400 / 800 Balance 315 / 850 500 / 1350 480 / 480 Weight last 48 hrs Weight 63.231 kg Physical Exam Narrative: General: Alert oriented x3, patient seen sitting up in bed with present at bedside in recliner. Nurse also present in room. Patient states he feels comfortable. She did cough a couple times while I was there. HEENT: Normocephalic, atraumatic, EOMI, breathing normally Cardio: Regular rate rhythm, normal S1-S2, no murmurs, Mediport removal site appears clean. Respiratory: Good bilateral air entry, no wheezes no rhonchi appreciated, GI: Abdomen soft, nontender, nondistended, bowel sounds + Behavior: Appropriate and cooperative Extremities: no edema, no cyanosis Data : 09/30/21 02:44 09/30/21 02:44 Micro: Microbiology 09/30/21 07:10 Gram Stain - Final Sputum - Expectorated Sputum 09/24/21 22:30 Blood Culture - Final Blood NO GROWTH AFTER 5 DAYS 09/24/21 22:25 Blood Culture - Final Blood NO GROWTH AFTER 5 DAYS A&P Assessment and plan (1) Fever: Status: Acute (2) Leukemia: Status: Acute (3) Fever and neutropenia: Status: Acute (4) Pneumonia: Status: Acute (5) Other pancytopenia: Status: Acute (6) Acute myeloblastic leukemia, not having achieved remission: Status: Acute (7) Neutropenic fever: Status: Acute (8) Depression: Status: Acute Plan #Neutropenic fever most likely secondary to infected Mediport #Infected Mediport status post removal #Pancytopenia #Acute myoplastic leukemia not having achieved remission so far?follows with Dr. Bradshaw #Pneumonia #History of depression ? We will do a CT chest today to rule out pneumonia. Will obtain sputum culture for gram stain. She has been having more coughing and blood-streaked sputum. Continue broad-spectrum antibiotics. Check procalcitonin. ? Await catheter tip culture, blood culture results - Check urine antigen strep/legionella ? We will place PICC line Saturday ? Continue to monitor temperature ? We will review her oncology notes ? RN updated Full code DVT prophylaxis: SCDs Attestations Medical Necessity Statement*: requires > 48 hour stay. Still febrile. Will need to stay for management of neutropenic fever. Coding Level of Care Code Acute Exploration Geologist for [facility] Fwd Diagnoses Fever R50.9 Leukemia C95.90 Fever and neutropenia D70.9; R50.81 Pneumonia J18.9 Other pancytopenia D61.818 Acute myeloblastic leukemia, 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 Depression F32.9
--- NOTE | 2021-09-30 13:07 | CTR_ITS ---
PROCEDURE INFORMATION: Exam: CT Chest Without Contrast; Diagnostic Exam date and time: 09/30/2021 6:19 PM Age: 71 years old Clinical indication: Dyspnea; Additional info: R/O pneumonia TECHNIQUE: Imaging protocol: Diagnostic computed tomography of the chest without contrast. Radiation optimization: All CT scans at this facility use at least one of these dose optimization techniques: automated exposure control; mA and/or kV adjustment per patient size (includes targeted exams where dose is matched to clinical indication); or iterative reconstruction. COMPARISON: CT angio chest [id number] 01/06/2021 8:27 AM RADIATION DOSE METRICS: Total DLP (mGy-cm): 376.94 FINDINGS: Lungs: Left upper lobe noncalcified pulmonary nodule measures 4 mm on axial series 2, image 25. 4 mm noncalcified nodule in the posterior left lower lobe on axial series 2, image 49. Fairly geographic area consolidation with some ground-glass attenuation in the medial right lower lobe with air bronchograms visible. Additional patchy area of consolidation with more peripherally oriented ground-glass attenuation in the medial right upper lobe. Focus of patchy ground-glass attenuation with small area of consolidation in the lateral inferior right middle lobe. Pleural spaces: Unremarkable. No pneumothorax. No pleural effusion. Heart: Unremarkable. No cardiomegaly. No pericardial effusion. Lymph nodes: Unremarkable. No enlarged lymph nodes. Vasculature: Unremarkable. No aortic aneurysm. Bones/joints: Unremarkable. No acute fracture. Soft tissues: Focal soft tissue fat stranding with focus of soft tissue air in the right upper anterior chest wall. CT/CT chest wo con [id number] IMPRESSION: 1. Suspect multiple small areas bronchopneumonia in the right lung. 2. Small incidental left lung pulmonary nodules. 3. For patients at low risk (minimal or absent history of smoking and of other known risk factors), no routine follow-up is indicated. For patients at high risk (history of smoking or of other known risk factors), consider optional CT Chest at 12 months. (Reference: Che) 4. Small area of nonspecific inflammatory soft tissue changes and foci of air in the right upper anterior chest wall. Recommend evaluation for skin wound in this area. REFERENCES: Che Mix, et al. Guidelines for Management of Incidental Pulmonary Nodules Detected on CT Images: From the Fleischner Society 2017. Radiology. 2017;284(1):228-243.
[2021-10-01] VITALS (11 sets, daily range): BP systolic 137–169; BP diastolic 57–79; PULSE 60–69; RESP 12–18; TEMP 36.4–36.8; O2SAT 90–97
[2021-10-01 03:58] LABS: Hematocrit 28.6 % (37.0-47.0); Hemoglobin 9.1 g/dL (11.5-15.3); Lymphocytes # 0.7 10^3/uL (0.8-4.8); Lymphocytes % 72.2 %; Mean Corpuscular HGB Conc 31.8 g/dL (30.0-36.0); Mean Corpuscular Hemoglobin 32.2 pg (28.0-34.0); Mean Corpuscular Volume 101.1 fl (81-99); Mean Platelet Volume 12.6 fL (7.4-10.4); Monocytes # 0.1 10^3/uL (0.2-0.9); Monocytes % 7.2 %; Neutrophils % 19.6 %; Nucleated Red Blood Cells % 0 %; Platelet Count 84 10^3/cmm (130-400); Red Blood Count 2.83 10^6/uL (4.1-5.3); Red Cell Distribution Width 18.9 % (12.1-15.1)
[2021-10-01 04:28] LABS: Anion Gap 11.5 (5-19); Blood Urea Nitrogen 9 mg/dL (8-23); Calcium 8.9 mg/dL (8.5-10.5); Carbon Dioxide 29 mmol/L (22-29); Chloride 103 mmol/L (98-107); Glomerular Filtration Rate 158.3 mL/min (90-130); Glucose 96 mg/dL (65-115); Osmolality Calculated 289 mOsm/kg (285-295); Potassium 3.5 mmol/L (3.5-5.1); Sodium 140 mmol/L (136-145)
[2021-10-01 04:49] LABS: Slide Review Slide Review Perform
[2021-10-01 04:51] LABS: Neutrophils # 0.19 10^3/uL (1.8-7.7)
--- NOTE | 2021-10-01 08:53 | PM.PN ---
Subjective Subjective: Seen this morning. Patient states she feels better. CT chest reviewed showed pneumonia. She PICC line to be placed tomorrow. Her IV infiltrated several times overnight. Now she has a better IV on the right side. Denies any pain, shortness of breath. Does still have a cough Vitals/I&O/Wt Last Vital Signs Temp 98.3 F 10/01/21 08:00 Pulse 61 10/01/21 08:00 Resp 12 10/01/21 08:00 BP 169/74 10/01/21 08:00 Pulse Ox 94 10/01/21 08:00 09/30/21 10/01/21 10/01/21 22:59 06:59 14:59 Intake Total 290 / 1365 525 / 1890 Output Total 300 / 300 Balance 290 / 1365 225 / 1590 Weight last 48 hrs Weight 63.231 kg Physical Exam Narrative: General: Alert oriented x3, patient seen sitting up in bed with son present at bedside in recliner.? HEENT: Normocephalic, atraumatic, EOMI, breathing normally Cardio: Regular rate rhythm, normal S1-S2, no murmurs, Mediport removal site appears clean. Respiratory: Good bilateral air entry, no wheezes no rhonchi appreciated, GI: Abdomen soft, nontender, nondistended, bowel sounds + Behavior: Appropriate and cooperative Extremities: no edema, no cyanosis Data : 10/01/21 03:12 10/01/21 03:12 Micro: Microbiology 09/30/21 22:41 Legionella Urinary Antigen - Final Urine,Clean Catch Bacterial Antigens - Final 09/25/21 18:45 Blood Culture - Final Blood NO GROWTH AFTER 5 DAYS 09/25/21 18:40 Blood Culture - Final Blood NO GROWTH AFTER 5 DAYS 09/28/21 18:21 Catheter Tip Culture - Preliminary Central Line 09/30/21 07:10 Gram Stain - Final Sputum - Expectorated Sputum A&P Assessment and plan (1) Fever: Status: Acute (2) Leukemia: Status: Acute (3) Fever and neutropenia: Status: Acute (4) Other pancytopenia: Status: Acute (5) Pneumonia: Status: Acute (6) Acute myeloblastic leukemia, not having achieved remission: Status: Acute (7) Neutropenic fever: Status: Acute Plan #Neutropenic fever most likely secondary to infected Mediport #Infected Mediport status post removal #Pancytopenia #Acute myoplastic leukemia not having achieved remission so far?follows with Dr. Bradshaw #Right sided Pneumonia, cough with blood streaked sputum, query aspergillus? #History of depression ? Sputum culture for gram stain pending.? Continue broad-spectrum antibiotics.? Procalcitonin negative. ? Blood cultures negative to date, tip culture negative, urine antigens strep Legionella negative. - CT chest done, there is evidence of infiltrate in right lung. Consult pulmonology. - Discussed with Dr. Albright. Check aspergillosis, b-d-glucan. Transfer to ICU to negative pressure room. He will see pt in consult. ? We will place PICC line Saturday ? Continue to monitor temperature ? RN updated Full code DVT prophylaxis: SCDs Attestations Medical Necessity Statement*: requires > 48 hour stay. Transfer to ICU. Coding Level of Care Code Acute Medical Language Specialist for [facility] Fwd Diagnoses Fever R50.9 Leukemia C95.90 Fever and neutropenia D70.9; R50.81 Other pancytopenia D61.818 Pneumonia J18.9 Acute myeloblastic leukemia, 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
[2021-10-01] MEDS: escitalopram 10 mg Tablet 20 MG PO (09:27)
[2021-10-01] MEDS: amlodipine 5 mg Tablet PO (09:27)
[2021-10-01] MEDS: losartan 50 mg Tablet PO ×2 (09:27→18:26)
[2021-10-01] MEDS: docusate sodium 100 mg Capsule PO ×3 (09:27→20:40)
[2021-10-01] MEDS: hyDRALAzine 10 mg Tablet PO ×3 (09:27→20:40)
[2021-10-01] MEDS: acyclovir 400 mg Tablet PO ×3 (09:28→20:40)
[2021-10-01] MEDS: cefepime 1,000 MG in sodium chloride 0.9% (plus) 50 ML 100 MG IV (09:30)
[2021-10-01] MEDS: linezolid premix 600 MG/300 ML PREMIX 300 MG IV ×2 (10:52→22:35)
--- NOTE | 2021-10-01 17:39 | PM.TDS ---
Transfer Summary Providers Date of Admission: 09/23/21 00:07 Date of Discharge/Transfer: 10/01/21 Attending Provider at Admission: David Hernandez DO Attending Provider at Transfer: Dionna Courtney MD Primary Care Provider: Mercy Rosales MD Transfer Plans: Anticipated date of transfer: 10/01/21. Additional transfer facility information: Transfer to [facility] Dr. Mota accepted on behalf of Dr. Rodriguez.. Diagnoses at Discharge Discharge Diagnosis (1) Fever: Status: Acute (2) Leukemia: Status: Acute (3) Fever and neutropenia: Status: Acute (4) Other pancytopenia: Status: Acute (5) Pneumonia: Status: Acute (6) Acute myeloblastic leukemia, not having achieved remission: Status: Acute (7) Neutropenic fever: Status: Acute Reason for Visit Reason for Visit Fever with cancer-Bobby sent her over Brief History: As pER Dr. HERNANDEZ. Date of admission 09/22/2021 Patient is a 71-year-old female who presented with complaint of fever which started possibly 3 PM on September 22, 2021.? She missed to coming rigors as well.? She also admits to nausea but denies emesis.? She denies cough, wheeze, abdominal pain, diarrhea, myalgia, dysuria, chest pain, dyspnea.? She indicates that she was directed to the emergency department by her primary care physician or provider.? The patient is currently undergoing chemotherapy for AML.? She presents for further evaluation Hospital Course Hospital Course Is a 71-year-old female who presented to the hospital with complaint of fever that started on September 22. She also had rigors. She was undergoing chemotherapy for AML at this time. She follows with Dr. Rodriguez at [facility] and Dr. Dyson for ID at [place]. Patient was managed for neutropenic fever with cefepime 1 g twice daily, acyclovir 400 3 times daily, voriconazole 250 twice daily, linezolid 600 twice daily. She continues to spike fevers up to 103 and it was suspected that her Mediport was infected and therefore it was removed on 09/28/2021. Catheter tip was sent for culture. Patient has been pancytopenic and severely neutropenic since admission. Hospitalist spoke to our local oncologist who suggested not to do Neupogen because of risk of throwing patient into blast crisis. I took over her care on 09/30/2021. Patient developed a cough with sputum streaked with blood 09/30/2021. Sputum culture was sent yesterday which is now growing gram-negative rods. Chest CT was ordered. Chest CT showed multiple small areas of bronchopneumonia in right lung and small incidental left lung pulmonary nodules. Groundglass attenuation in medial right lower lobe with air bronchograms visible with additional patchy area of consolidation with more peripherally oriented groundglass attenuation in medial right upper lobe and focus of patchy groundglass attenuation with small area of consolidation lateral inferior right middle lobe. I sent work-up for Aspergillus, MRSA nares PCR, COVID-19 swab, repeated blood cultures today, sent for fungal cultures. I consulted pulmonology today. Pulmonology suggested to move patient into a negative pressure room today and continue neutropenic precautions. He was to see the patient later on today however before he could do so patient requested transfer to [facility] since her oncologist and ID physician is there. She requested to see an ID physician which we do not have here. Therefore patient will be transferred to [facility] for higher level of care. As the culture data comes back we will notify [place] if anything comes out to be positive. All her studies are pending at this time. Discussed the case with Dr. Mota at [facility] who accepted on behalf of Dr. Rodriguez. Patient is vitally stable and will be transferred to higher level of care. Physical Exam Narrative: See progress note from today. TS Data Studies Completed and Pending Pending at discharge Category Date Time Status 1-3 Beta D Glucan [Fungitell Glucan Assay] Routine Lab 10/01/21 15:06 Received Aspergillus AG,EIA,Serum Stat Lab 10/01/21 15:06 Received Aspergillus DNA Qualitativ PCR Stat Lab 10/01/21 15:06 Received Basic Metabolic Panel AM LABS Lab 10/02/21 04:00 Ordered Blood Culture Stat Lab 10/01/21 15:06 Ordered COVID [SARS Covid-2 Antigen] Routine Lab 10/01/21 14:22 Uncollected Complete Blood Count w/Auto AM LABS Lab 10/02/21 04:00 Ordered MRSA by PCR Stat Lab 10/01/21 14:11 Uncollected Magnesium AM LABS Lab 10/02/21 04:00 Ordered Sputum Culture and Gram Stain Routine Lab 09/30/21 07:10 Results Labs from last 24 hours 10/01/21 10/01/21 10/01/21 15:06 15:06 15:06 WBC RBC Hgb Hct MCV MCH MCHC RDW Plt Count MPV Neut % (Auto) Lymph % (Auto) Kimble % (Auto) Eos % (Auto) Baso % (Auto) Neut # (Auto) Lymph # (Auto) [place] # (Auto) Eos # (Auto) Baso # (Auto) Nucleated RBC % (auto) Nucleated RBCs # Sodium Potassium Chloride Carbon Dioxide Anion Gap BUN Creatinine GFR Calculation Glucose Calculated Osmolality Calcium Aspergillus Source Pending Aspergillus sp (PCR) Pending A. fumigatus (PCR) Pending A. galactomannan Ag EIA Pending A. galactomannan Ag Idx Pending A. terreus (PCR) Pending Beta-(1,3)-D-Glucan Pending B-(1,3)-D-Glucan Intrp Pending 10/01/21 10/01/21 03:12 03:12 WBC 1.0 L RBC 2.83 L Hgb 9.1 L Hct 28.6 L MCV 101.1 H MCH 32.2 MCHC 31.8 RDW 18.9 H Plt Count 84 L MPV 12.6 H Neut % (Auto) 19.6 Lymph % (Auto) 72.2 Kimble % (Auto) 7.2 Eos % (Auto) 0.0 Baso % (Auto) 0.0 Neut # (Auto) 0.19 L* Lymph # (Auto) 0.7 L Kimble # (Auto) 0.1 L Eos # (Auto) 0.0 Baso # (Auto) 0.0 Nucleated RBC % (auto) 0 Nucleated RBCs # 0.0 Sodium 140 Potassium 3.5 Chloride 103 Carbon Dioxide 29 Anion Gap 11.5 BUN 9 Creatinine 0.4 L GFR Calculation 158.3 H Glucose 96 Calculated Osmolality 289 Calcium 8.9 Aspergillus Source Aspergillus sp (PCR) A. fumigatus (PCR) A. galactomannan Ag EIA A. galactomannan Ag Idx A. terreus (PCR) Beta-(1,3)-D-Glucan B-(1,3)-D-Glucan Intrp Completed Studies During Hospitalization Category Date Time Status CT chest con [id number] Routine Cat Scan 09/30/21 13:07 Completed XR chest 1V portable [id number] Routine Exams 09/25/21 06:00 Completed XR chest 1V portable [id number] Urgent Exams 09/22/21 20:33 Completed XR chest 1V portable [id number] Urgent Exams 09/24/21 20:52 Completed XR chest 2V* [id number] Routine Exams 09/30/21 11:06 Completed Laboratory Last Values WBC 1.0 10^3/uL (4.0-10.0) L 10/01/21 03:12 RBC 2.83 10^6/uL (4.1-5.3) L 10/01/21 03:12 Hgb 9.1 g/dL (11.5-15.3) L 10/01/21 03:12 Hct 28.6 % (37.0-47.0) L 10/01/21 03:12 MCV 101.1 fl (81-99) H 10/01/21 03:12 MCH 32.2 pg (28.0-34.0) 10/01/21 03:12 MCHC 31.8 g/dL (30.0-36.0) 10/01/21 03:12 RDW 18.9 % (12.1-15.1) H 10/01/21 03:12 Plt Count 84 10^3/cmm (130-400) L 10/01/21 03:12 MPV 12.6 fL (7.4-10.4) H 10/01/21 03:12 Neut % (Auto) 19.6 % 10/01/21 03:12 Lymph % (Auto) 72.2 % 10/01/21 03:12 Kimble % (Auto) 7.2 % 10/01/21 03:12 Eos % (Auto) 0.0 % 10/01/21 03:12 Baso % (Auto) 0.0 % 10/01/21 03:12 Neut # (Auto) 0.19 10^3/uL (1.8-7.7) L* 10/01/21 03:12 Lymph # (Auto) 0.7 10^3/uL (0.8-4.8) L 10/01/21 03:12 Kimble # (Auto) 0.1 10^3/uL (0.2-0.9) L 10/01/21 03:12 Eos # (Auto) 0.0 10^3/uL (0.0-0.8) 10/01/21 03:12 Baso # (Auto) 0.0 10^3/uL (0.0-0.1) 10/01/21 03:12 Nucleated RBC % (auto) 0 % 10/01/21 03:12 Nucleated RBCs # 0.0 /100WBC 10/01/21 03:12 ESR 93 mm/hr (0-15) H 09/27/21 04:33 PT 14.40 SECONDS (12.1-14.9) 09/23/21 00:40 INR 1.09 (0.8-1.2) 09/23/21 00:40 APTT 22.1 SECONDS (23.9-36.7) L 09/23/21 00:40 Fibrinogen 697 mg/dL (174-498) H 09/23/21 00:40 Sodium 140 mmol/L (136-145) 10/01/21 03:12 Potassium 3.5 mmol/L (3.5-5.1) 10/01/21 03:12 Chloride 103 mmol/L (98-107) 10/01/21 03:12 Carbon Dioxide 29 mmol/L (22-29) 10/01/21 03:12 Anion Gap 11.5 (5-19) 10/01/21 03:12 BUN 9 mg/dL (8-23) 10/01/21 03:12 Creatinine 0.4 mg/dL (0.5-0.9) L 10/01/21 03:12 GFR Calculation 158.3 mL/min (90-130) H 10/01/21 03:12 Glucose 96 mg/dL (65-115) 10/01/21 03:12 Calculated Osmolality 289 mOsm/kg (285-295) 10/01/21 03:12 Lactate 1.2 mmol/L (0.5-2.2) 09/22/21 21:06 Calcium 8.9 mg/dL (8.5-10.5) 10/01/21 03:12 Magnesium 2.2 mg/dL (1.7-2.3) 09/25/21 04:55 Magnesium Cancelled 09/25/21 04:55 Iron 32 ug/dL (37-145) L 09/22/21 21:06 TIBC 273 mcg/dl 09/22/21 21:06 % Saturation 11.7 % (20-50) L 09/22/21 21:06 Unsat Iron Binding 241 ug/dL (112-347) 09/22/21 21:06 Ferritin 591 ng/mL (15-150) H 09/22/21 21:06 Total Bilirubin 0.5 mg/dL (0.15-1.2) 09/30/21 02:44 AST 18 U/L (0-32) 09/30/21 02:44 ALT 18 U/L (0-33) 09/30/21 02:44 Alkaline Phosphatase 96 IU/L (35-105) 09/30/21 02:44 Total Protein 6.4 g/dL (6.6-8.7) L 09/30/21 02:44 Albumin 3.3 g/dL (3.5-5.2) L 09/30/21 02:44 Globulin 3.1 g/dL (1.3-4.6) 09/30/21 02:44 Lipase 33 U/L (13-60) 09/22/21 21:06 Vitamin B12 622 pg/mL (232-1245) 09/22/21 21:06 Folate > 20.0 ng/mL (4.8-37.3) 09/23/21 00:40 TSH 2.58 uIU/mL (0.27-4.20) 09/22/21 21:06 Procalcitonin 0.20 ng/mL (0-0.5) 09/27/21 04:33 Free T4 0.87 ng/dL (0.82-1.77) 09/22/21 21:06 Urine Color Straw (Yellow) 09/24/21 21:25 Urine Appearance Clear (CLEAR) 09/24/21 21:25 Urine pH 6.5 (5-7) 09/24/21 21:25 Ur Specific [place] 1.005 (1.005-1.030) 09/24/21 21:25 Urine Protein Neg (Negative) 09/24/21 21:25 Urine Glucose (UA) Norm (Normal) 09/24/21 21: Urine Ketones Negative (Negative) 09/24/21 21:25 Urine Blood 2+ (Negative) H 09/24/21 21:25 Urine Nitrate Negative (Negative) 09/24/21 21:25 Urine Bilirubin Neg (Negative) 09/24/21 21:25 Urine Urobilinogen Norm mg/dL (Negative) 09/24/21 21:25 Ur Leukocyte Esterase Negative (Negative) 09/24/21 21:25 Urine RBC 5-10 /hpf (0-2) H 09/24/21 21:25 Urine WBC 0-4 /hpf (0-5) H 09/24/21 21:25 Ur Squamous Epith Cells 0-4 /hpf (0-5) H 09/24/21 21:25 Amorphous Sediment Not Reportable 09/24/21 21:25 Urine Bacteria Trace /hpf (NONE) 09/24/21 21:25 Nasal Influ A H1 2009 PCR Not detected (NOT DETECT) 09/22/21 23:25 Coronavirus 229E (PCR) Not detected (NOT DETECT) 09/22/21 23:25 Influenza A (H1) PCR Not detected (NOT DETECT) 09/22/21 23:25 Influenza A (H3) PCR Not detected (NOT DETECT) 09/22/21 23:25 Influenza Type A (PCR) Not detected (NOT DETECT) 09/22/21 23:25 Influenza Type B (PCR) Not detected (NOT DETECT) 09/22/21 23:25 A. galactomannan Ag EIA Not detected 09/23/21 12:43 A. galactomannan Ag Idx <0.50 09/23/21 12:43 SARS-CoV-2 (PCR) Not detected (NOT DETECT) 09/22/21 23:25 Beta-(1,3)-D-Glucan <31 pg/mL 09/23/21 00:40 B-(1,3)-D-Glucan Intrp Negative 09/23/21 00:40 Blood Type A Positive 09/28/21 08:45 Rho(D) Type Positive 09/28/21 08:45 Antibody Screen Negative 09/22/21 23:05 Crossmatch See Detail 09/22/21 23:05 Radiology Impressions Chest X-Ray 09/30/21 11:06 IMPRESSION: No acute findings. Chest CT 09/30/21 13:07 IMPRESSION: 1. Suspect multiple small areas bronchopneumonia in the right lung. 2. Small incidental left lung pulmonary nodules. 3. For patients at low risk (minimal or absent history of smoking and of other known risk factors), no routine follow-up is indicated. For patients at high risk (history of smoking or of other known risk factors), consider optional CT Chest at 12 months. (Reference: Che) 4. Small area of nonspecific inflammatory soft tissue changes and foci of air in the right upper anterior chest wall. Recommend evaluation for skin wound in this area. REFERENCES: Che Mix et al. Guidelines for Management of Incidental Pulmonary Nodules Detected on CT Images: From the Fleischner Society 2017. Radiology. 2017;284(1):228-243. Recent Clincial Data Last Vital Signs Temp 97.7 F 10/01/21 16:00 Pulse 60 10/01/21 16:00 Resp 12 10/01/21 16:00 BP 168/77 10/01/21 16:00 Pulse Ox 97 10/01/21 16:00 Vital Signs Temp Pulse Resp BP Pulse Ox 10/01/21 16:00 97.7 F 60 12 168/77 97 10/01/21 11:45 98.3 F 67 16 157/70 95 10/01/21 09:27 169/74 10/01/21 08:00 98.3 F 61 12 169/74 94 Intake & Output/Weight 09/29/21 09/30/21 10/01/21 10/02/21 06:59 06:59 06:59 06:59 Intake Total 1875 / 1875 2150 / 2150 1890 / 1890 710 / 710 Output Total 800 / 800 300 / 300 Balance 1865 / 1865 1350 / 1350 1590 / 1590 710 / 710 Weight 63.231 kg Vitals Last Vital Signs Temp 97.7 F 10/01/21 16:00 Pulse 60 10/01/21 16:00 Resp 12 10/01/21 16:00 BP 168/77 10/01/21 16:00 Pulse Ox 97 10/01/21 16:00 TS Medications Medications Acetaminophen (Acetaminophen 325 Mg Tablet) 650 mg PO Q4H PRN PRN Reason: Mild/Mod Pain Or Temp >/= 101 Last Admin: 09/29/21 04:00 Dose: 650 mg Documented by: Hydrocodone Bitart/Acetaminophen (Hydrocodone-Acetaminophen 7.5-325 Mg Tablet) 1 tab PO Q4H PRN PRN Reason: MODERATE PAIN Acyclovir (Acyclovir 400 Mg Tablet) 400 mg PO TID@09,14,20 [facility] Last Admin: 10/01/21 15:49 Dose: 400 mg Documented by: Amlodipine Besylate (Amlodipine 5 Mg Tablet) 5 mg PO DAILY [facility] Last Admin: 10/01/21 09:27 Dose: 5 mg Documented by: Docusate Sodium (Docusate Sodium 100 Mg Capsule) 100 mg PO TID [facility] Last Admin: 10/01/21 15:49 Dose: 100 mg Documented by: Escitalopram Oxalate (Escitalopram 10 Mg Tablet) 20 mg PO DAILY [facility] Last Admin: 10/01/21 09:27 Dose: 20 mg Documented by: Hydralazine HCl (Hydralazine 10 Mg Tablet) 10 mg PO TID [facility] Last Admin: 10/01/21 15:49 Dose: 10 mg Documented by: Voriconazole 250 mg/ Sodium (Chloride) 125 mls @ 100 mls/hr IV Q12H [facility] Last Infusion: 10/01/21 01:35 Dose: Infused Documented by: Linezolid (Zyvox Premix) 600 mg in 300 mls @ 300 mls/hr IV Q12H [facility]; Protocol Last Infusion: 10/01/21 11:52 Dose: Infused Documented by: Cefepime HCl 2,000 mg/ Sodium (Chloride) 50 mls @ 100 mls/hr IV Q8H [facility]; Protocol Lanolin (Lanolin Oint 7 Gm) 1 applic TOPICAL PRN PRN PRN Reason: DRYNESS Last Admin: 09/27/21 20:10 Dose: 1 applic Documented by: Lidocaine HCl (Lidocaine 2% Jelly 5 Ml) 1 applic TOPICAL PRN PRN PRN Reason: PAIN Last Admin: 09/23/21 13:11 Dose: 1 applic Documented by: Losartan Potassium (Losartan 50 Mg Tablet) 50 mg PO BID [facility] Last Admin: 10/01/21 09:27 Dose: 50 mg Documented by: Non-Formulary Medication (Melatonin) 3 mg PO BEDTIME PRN PRN Reason: Sleep Non-Formulary Medication (Phpjrukalkcp-Cvcwplpt-Geiepf) 1 tab PO DAILY [facility] Last Admin: 10/01/21 10:51 Dose: Not Given Documented by: Non-Formulary Medication (Lactobacillus Acidophilus) 100 mmu cells PO DAILY [facility] Non-Formulary Medication (Biotin) 10,000 mcg PO DAILY [facility] Ondansetron HCl (Ondansetron 2 Mg/Ml Sdv 2 Ml) 4 mg IVP Q8H PRN PRN Reason: vomiting, or N/V if npo Last Admin: 09/28/21 08:06 Dose: 4 mg Documented by: Discontinued Medications Acetaminophen (Acetaminophen 500 Mg Tablet) 1,000 mg PO ONCE ONE Stop: 09/22/21 20:41 Last Admin: 09/22/21 21:06 Dose: 1,000 mg Documented by: Acetaminophen (Acetaminophen 325 Mg Tablet) 650 mg PO Q6H PRN PRN Reason: Mild/Mod Pain Or Temp >/= 101 Last Admin: 09/26/21 09:09 Dose: 650 mg Documented by: Acetaminophen (Acetaminophen 500 Mg Tablet) 1,000 mg PO ONCE ONE Stop: 09/24/21 00:05 Last Admin: 09/24/21 00:10 Dose: 1,000 mg Documented by: Acetaminophen (Acetaminophen 500 Mg Tablet) 1,000 mg PO DAILY PRN PRN Reason: FEVER >102 Last Admin: 09/25/21 22:22 Dose: 1,000 mg Documented by: Benzocaine (Cetylpyridinium Lozenge) 1 each MUCOUS MEM ONCE ONE Stop: 09/28/21 17:50 Last Admin: 09/28/21 18:47 Dose: Not Given Documented by: Bupivacaine HCl (Bupivacaine 0.25% Inj 10 Ml) Confirm Administered Dose 20 ml .ROUTE .STK-MED ONE Stop: 09/27/21 11:50 Last Admin: 09/28/21 18:47 Dose: Not Given Documented by: Cefepime HCl (Cefepime 1,000 Mg Sdv) Confirm Administered Dose 1,000 mg .ROUTE .STK-MED ONE Stop: 09/29/21 08:45 Last Admin: 09/29/21 08:57 Dose: Not Given Documented by: Diphenhydramine HCl (Diphenhydramine 50 Mg Capsule) 50 mg PO ONCE ONE Stop: 09/25/21 13:11 Last Admin: 09/25/21 13:51 Dose: 50 mg Documented by: Diphenhydramine HCl (Diphenhydramine 50 Mg/Ml Sdv 1ml) 25 mg IVP ONCE ONE Stop: 09/25/21 23:46 Last Admin: 09/26/21 00:40 Dose: 25 mg Documented by: Diphenhydramine HCl (Diphenhydramine 50 Mg/Ml Sdv 1ml) 12.5 mg IVP ONCE PRN PRN Reason: ANESTHESIA Last Admin: 09/29/21 01:33 Dose: 12.5 mg Documented by: Famotidine (Famotidine 20 Mg/2 Ml Inj) 20 mg IVP ONCE PRN PRN Reason: HEARTBURN Fentanyl (Fentanyl 50 Mcg/Ml Inj 2ml) 50 mcg IVP Q10M PRN PRN Reason: Preop Pain Fentanyl (Fentanyl 50 Mcg/Ml Inj 2ml) 100 mcg IVP ONCE PRN PRN Reason: Per anesthesia for block Fentanyl (Fentanyl 50 Mcg/Ml Inj 2ml) 50 mcg IVP Q5M PRN PRN Reason: Pain level 1-6 PACU Phase I Stop: 09/29/21 17:49 Furosemide (Furosemide 10 Mg/Ml Sdv 2ml) 20 mg IVP ONCE ONE Stop: 09/25/21 13:11 Last Admin: 09/25/21 19:08 Dose: 20 mg Documented by: Hydralazine HCl (Hydralazine 20 Mg/Ml Inj 1 Ml) 10 mg IVP ONCE ONE Stop: 09/24/21 19:48 Last Admin: 09/24/21 19:54 Dose: 10 mg Documented by: Hydromorphone HCl (Hydromorphone 1 Mg/Ml Inj 1 Ml) 0.5 mg IVP Q10M PRN PRN Reason: Pain level 6-10 PACU Phase I Stop: 09/29/21 17:49 Hydroxyzine Pamoate (Hydroxyzine 25 Mg Capsule) 25 mg PO ONCE ONE Stop: 09/27/21 01:17 Last Admin: 09/27/21 01:32 Dose: 25 mg Documented by: Sodium Chloride (Sodium Chloride 0.9%) 1,000 mls @ 999 mls/hr IV .Q1H1M ONE Stop: 09/22/21 21:40 Last Infusion: 09/23/21 01:20 Dose: Infused Documented by: Cefepime HCl 1,000 mg/ Sodium (Chloride) 50 mls @ 100 mls/hr IV ONCE ONE; Protocol Stop: 09/22/21 21:13 Last Admin: 09/22/21 21:01 Dose: Not Given Documented by: Cefepime HCl 1,000 mg/ Sodium (Chloride) 50 mls @ 100 mls/hr IV ONCE ONE; Protocol Stop: 09/22/21 21:32 Last Infusion: 09/23/21 01:20 Dose: Infused Documented by: Sodium Chloride (Sodium Chloride 0.9%) 1,000 mls @ 999 mls/hr IV .Q1H1M ONE Stop: 09/22/21 23:44 Last Infusion: 09/23/21 01:20 Dose: Infused Documented by: Cefepime HCl 1,000 mg/ Sodium (Chloride) 50 mls @ 100 mls/hr IV Q12H [facility]; Protocol Last Infusion: 10/01/21 10:00 Dose: Infused Documented by: Voriconazole 360 mg/ Sodium (Chloride) 250 mls @ 250 mls/hr IV Q12H [facility] Stop: 09/24/21 04:29 Voriconazole 360 mg/ Sodium (Chloride) 286 mls @ 250 mls/hr IV Q12H [facility] Stop: 09/24/21 04:39 Last Infusion: 09/24/21 05:30 Dose: Infused Documented by: Vancomycin HCl 1,500 mg/ (Sodium Chloride) 250 mls @ 166.667 mls/hr IV Q24H [facility] Last Infusion: 09/24/21 12:09 Dose: Infused Documented by: Sodium Chloride (Sodium Chloride 0.9% (100 Ml)) Confirm Administered Dose 100 mls @ as directed .ROUTE .[facility] ONE Stop: 09/25/21 13:24 Last Infusion: 09/26/21 00:03 Dose: Infused Documented by: Sodium Chloride (Sodium Chloride 0.9% (100 Ml)) Confirm Administered Dose 100 mls @ as directed .ROUTE .[facility] ONE Stop: 09/25/21 22:30 Last Infusion: 09/26/21 00:03 Dose: Infused Documented by: Sodium Chloride (Sodium Chloride 0.9% (100 Ml)) Confirm Administered Dose 100 mls @ as directed .ROUTE .[facility] ONE Stop: 09/28/21 11:31 Last Infusion: 09/28/21 14:11 Dose: Infused Documented by: Sodium Chloride (Sodium Chloride 0.9%) 1,000 mls @ 30 mls/hr IV .Q24H [facility] Stop: 09/29/21 15:44 Last Admin: 09/28/21 16:42 Dose: 30 mls/hr Documented by: Sodium Chloride (Sodium Chloride 0.9%) Confirm Administered Dose 1,000 mls @ as directed .ROUTE .[employer] ONE Stop: 09/28/21 15:59 Sodium Chloride (Sodium Chloride 0.9%) 500 mls @ 999 mls/hr IV .Q31M PRN PRN Reason: HYPOTENSION Ipratropium [place] (Ipratropium 0.5 Mg/2.5 Ml Neb) 0.5 mg INHALATION ONCE PRN PRN Reason: WHEEZING Levalbuterol HCl (Levalbuterol 0.63 Mg/3 Ml Neb) 0.63 mg INHALATION ONCE PRN PRN Reason: WHEEZING Lidocaine HCl (Lidocaine 2% Inj 20 Ml) Confirm Administered Dose 20 ml .ROUTE .[employer] ONE Stop: 09/27/21 11:51 Last Admin: 09/28/21 18:47 Dose: Not Given Documented by: Lidocaine HCl (Lidocaine 2% Inj 20 Ml) Confirm Administered Dose 20 ml .ROUTE .[employer] ONE Stop: 09/28/21 18:02 Lidocaine/Epinephrine (Lidocaine 2% Epi 20 Ml Inj) Confirm Administered Dose 20 ml .ROUTE .[employer] ONE Stop: 09/28/21 17:51 Last Admin: 09/28/21 18:47 Dose: Not Given Documented by: Meperidine HCl (Meperidine 50 Mg/Ml Inj) 12.5 mg IVP Q5M PRN PRN Reason: Shivering PACU Phase I Stop: 09/29/21 17:49 Midazolam HCl (Midazolam 1 Mg/Ml Inj 2 Ml) 2 mg IVP Q5M PRN PRN Reason: Preop Anxiety Midazolam HCl (Midazolam 1 Mg/Ml Inj 5 Ml) 5 mg IVP ONCE PRN PRN Reason: Per anesthesia for block Non-Formulary Medication (Posaconazole [Noxafil]) 200 mg PO QAM [facility] Last Admin: 10/01/21 14:16 Dose: Not Given Documented by: Non-Formulary Medication (Posaconazole [Noxafil]) 0 mg PO 1200 [facility] Last Admin: 10/01/21 12:20 Dose: 200 mg Documented by: Ondansetron HCl (Ondansetron 2 Mg/Ml Sdv 2 Ml) 4 mg IVP Q5M PRN PRN Reason: NAUSEA AND VOMITING Ondansetron HCl (Ondansetron 2 Mg/Ml Sdv 2 Ml) 4 mg IVP Q15M PRN PRN Reason: Nausea/Vomiting PACU PHASE II Ondansetron HCl (Ondansetron 2 Mg/Ml Sdv 2 Ml) 4 mg IVP Q5M PRN PRN Reason: Nausea PACU Phase I Stop: 09/29/21 17:49 Potassium Chloride (Potassium Chloride Er 20 Meq Tablet) 40 meq PO Q6H [facility] Stop: 09/25/21 18:01 Last Admin: 09/25/21 19:08 Dose: 40 meq Documented by: Propofol (Propofol 10 Mg/Ml Sdv 20 Ml) Confirm Administered Dose 200 mg .ROUTE .STK-MED ONE Stop: 09/28/21 18:02 Propofol (Propofol 10 Mg/Ml Sdv 20 Ml) Confirm Administered Dose 200 mg .ROUTE .STK-MED ONE Stop: 09/28/21 18:10 Sodium Chloride (Sodium Chloride 0.9% 100 Ml Bag) 50 ml IV ONCE ONE Stop: 09/22/21 22:45 Last Admin: 09/23/21 02:18 Dose: Not Given Documented by: Sodium Chloride (Sodium Chloride 0.9% 100 Ml Bag) 50 ml IV ONCE ONE Stop: 09/25/21 05:52 Last Admin: 09/25/21 20:05 Dose: 50 ml Documented by: Allergies adhesive Allergy (Unknown, Verified 09/04/21 06:01) Unknown amoxicillin Allergy (Verified 09/04/21 06:01) Rash, tongue swelling Patient has never taken Keflex Penicillins Allergy (Verified 09/04/21 06:01) Unknown Sulfa (Sulfonamide Antibiotics) Allergy (Verified 09/04/21 06:01) Rash vancomycin Adverse Reaction (Mild, Verified 09/24/21 11:25) ADR-Itching Home Medications acyclovir 400 mg tablet 400 mg PO TID@09,14,20 06/30/20 [History Confirmed 09/23/21] ondansetron 8 mg disintegrating tablet 8 mg PO Q6H PRN 06/30/20 [History Confirmed 09/23/21] posaconazole 100 mg tablet,delayed release (Noxafil) 200 mg PO QAM 07/16/20 [History Confirmed 09/23/21] docusate sodium 100 mg capsule 100 mg PO TID 11/18/20 [History Confirmed 09/23/21] famotidine-Ca carb-mag hydrox 10 mg-800 mg-165 mg chewable tablet (Acid [employer]ing Worker Complete (famotidine)) 1 tab PO QPM PRN 11/18/20 [History Confirmed 09/23/21] melatonin 5 mg tablet 3 mg PO BEDTIME PRN 11/18/20 [History Confirmed 09/23/21] acetaminophen 500 mg tablet (Tylenol Extra Strength) 500 mg PO Q6H PRN 12/13/20 [History Confirmed 09/23/21] oxygen-air delivery systems 12/13/20 [History Confirmed 09/23/21] losartan 50 mg tablet 50 mg PO BID 08/08/21 [History Confirmed 09/23/21] potassium chloride 10 mEq capsule,extended release 10 meq PO DAILY 08/08/21 [History Confirmed 09/23/21] venetoclax 100 mg tablet (Venclexta) 100 mg PO DAILY #14 tab 08/31/21 [Rx Confirmed 09/23/21] Lactobacillus acidophilus 100 mmu cells PO DAILY 09/01/21 [History Confirmed 09/23/21] biotin 10,000 mcg capsule 10,000 mcg PO DAILY 09/01/21 [History Confirmed 09/23/21] escitalopram oxalate 20 mg tablet (Lexapro) 20 mg PO DAILY 09/01/21 [History Confirmed 09/23/21] uazykxirbkow-ifdqkznt-iidcoi tablet 1 tab PO DAILY 09/01/21 [History Confirmed 09/23/21] lidocaine-prilocaine 2.5 %-2.5 % topical kit 1 applic TOPICAL ONCE #1 ea 09/05/21 [Rx Confirmed 09/23/21] amlodipine 5 mg tablet 5 mg PO DAILY 09/23/21 [History Confirmed 09/23/21] Discharge Plan Discharge Patient Disposition: Xfer Other Condition: Stable Prescriptions: No Action acetaminophen [Tylenol Extra Strength] 500 mg tablet 500 mg PO Q6H PRN (Reason: Pain) 0RF (DME) oxygen-air delivery systems Device See Rx Instructions .Route 0RF Rx Instructions: As directed losartan 50 mg tablet 50 mg PO BID 0RF potassium chloride 10 mEq capsule, extended release 10 meq PO DAILY 0RF lidocaine-prilocaine 2.5-2.5 % kit 1 applic topical ONCE Qty: 1 3RF Rx Instructions: 1 ML APPLY TO PORT AREA 1 HOUR PRIOR TO ACCESSING PORT ondansetron 8 mg Tablet,Disintegrating 8 mg PO Q6H PRN (Reason: Nausea And Vomiting) 0RF Label Comments: To take with venetoclax acyclovir 400 mg Tablet 400 mg PO TID@,, 0RF posaconazole [Noxafil] 100 mg Tablet,Delayed Release (Dr/Ec) 200 mg PO QAM 0RF docusate sodium 100 mg Capsule 100 mg PO TID 0RF Acid Recycling Worker Complete (famot) 10-800-165 mg Tablet,Chewable 1 tab PO QPM PRN (Reason: Heartburn) 0RF melatonin 5 mg Tablet 3 mg PO BEDTIME PRN (Reason: Sleep) 0RF Lactobacillus acidophilus Tablet 100 mmu cells PO DAILY 0RF biotin 10,000 mcg Capsule 10,000 mcg PO DAILY 0RF exkleomowhjm-rjhudhaq-ybvolh Tablet 1 tab PO DAILY 0RF escitalopram oxalate [Lexapro] 20 mg Tablet 20 mg PO DAILY 0RF Venclexta 100 mg Tablet 100 mg PO DAILY Qty: 14 0RF Rx Instructions: On for 14 days and off until next chemo treatment (October 16) amlodipine 5 mg tablet 5 mg PO DAILY 0RF Referrals: Mercy Rosales MD [Primary Care Provider] - Gustavo Campoverde DO [Physician] - 2 weeks (SUTURE REMOVAL) Discharge Diet: Regular Patient Instructions: Opioid Safety Transfer Attestations Time Spent in Transfer Care: greater than 30 min Quality Metrics Clinical Quality Measures [ No reported AMI, CVA or VTE this stay] Coding Level of Care Code Acute Supervisor [employer] for [employer]g Fwd Diagnoses Fever R50.9 Leukemia C95.90 Fever and neutropenia D70.9; R50.81 Other pancytopenia D61.818 Pneumonia J18.9 Acute myeloblastic leukemia, 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
[2021-10-01] MEDS: cefepime 2,000 MG in sodium chloride 0.9% (plus) 50 ML 100 MG IV (18:24)
[2021-10-01 20:26] LABS: Adenovirus Not Detected (NOT DETECT); Chlamydia Pneumoniae Not Detected (NOT DETECT); Coronavirus 229E,HKU1,NL63,OC4 Not Detected (NOT DETECT); Human Metapneumovirus Not Detected (NOT DETECT); Human Rhinovirus/Enterovirus Not Detected (NOT DETECT); Influenza A Not Detected (NOT DETECT); Influenza A H1 Not Detected (NOT DETECT); Influenza A H1-2009 Not Detected (NOT DETECT); Influenza A H3 Not Detected (NOT DETECT); Influenza B Not Detected (NOT DETECT); Mycoplasma Pneumoniae Not Detected (NOT DETECT); Parainfluenza Virus Type 1 Not Detected (NOT DETECT); Parainfluenza Virus Type 2 Not Detected (NOT DETECT); Parainfluenza Virus Type 3 Not Detected (NOT DETECT); Parainfluenza Virus Type 4 Not Detected (NOT DETECT); Respiratory Syncytial Virus A Not Detected (NOT DETECT); Respiratory Syncytial Virus B Not Detected (NOT DETECT); SARS-COV-2 Not Detected (NOT DETECT)
[2021-10-01] MEDS: ondansetron 2 mg/ML SDV 2 mL 4 MG IVP (23:00)
--- NOTE | 2021-10-01 23:22 | PC.NURSE ---
Report was called to [facility] to Cal Coughlin RN. The patient left via EMS with all belongings to transfer to [facility] at [phone]. All consents were signed. at bedside when EMS left with patient. Patient has IV antibiotics running and left with IV pump. EMS estimated 3.5-4 hour trip before reaching destination.
[2021-10-05 22:47] LABS: Fungitell 1-3-B Glucan Assay <31 pg/mL; Interpretation NEGATIVE
[2021-10-06 06:27] LABS: Aspergillus Source WHOLE BLOOD; Aspergillus Supp NOT DETECTED; Aspergillus Terreus DNA NOT DETECTED
[2021-10-07 18:48] LABS: Aspergillus AG,EIA,Serum NOT DETECTED; Aspergillus Galactomannan Inde <0.50
== END 2021-10-01 23:05 | disposition short-term general hospital (02) | DRG 314 ==
LOC: ER 21:15 → MEDSURG 09-23 00:38
PROVIDERS: Internal Medicine; Surgery; Admitting Provider Internal Medicine; Emergency Provider Emergency Medicine; PCP Internal Medicine; Visit Provider Internal Medicine
PROC: 30233R1 Transfusion of Nonautologous Platelets into Peripheral Vein, Percutaneous Approach (ICD-10-PCS; CPT 36589; principal; 2021-09-28 13:10)
DX: T80.212A Local infection due to central venous catheter, initial encounter (principal); J18.9 Pneumonia, unspecified organism; D61.810 Antineoplastic chemotherapy induced pancytopenia; C92.00 Acute myeloblastic leukemia, not having achieved remission; D61.818 Other pancytopenia; Z79.899 Other long term (current) drug therapy; Z86.16 Personal history of COVID-19; F32.A Depression, unspecified; L90.0 Lichen sclerosus et atrophicus; T45.1X5A Adverse effect of antineoplastic and immunosuppressive drugs, initial encounter; K21.9 Gastro-esophageal reflux disease without esophagitis; I10 Essential (primary) hypertension; Z87.01 Personal history of pneumonia (recurrent); D70.1 Agranulocytosis secondary to cancer chemotherapy; R50.81 Fever presenting with conditions classified elsewhere; D50.9 Iron deficiency anemia, unspecified
CPT/HCPCS: 36415; 36430; 71045; 71046; 71250; 80048; 80053; 81001; 81003; 82274; 82607; 82728; 82746; 83540; 83550; 83605; 83690; 83735; 84145; 84439; 84443; 85025; 85384; 85610; 85651; 85730; 86403; 86606; 86850; 86900; 86920; 87040; 87070; 87075; 87077; 87186; 87205; 87305; 87449; 87486; 87581; 87631; 87633; 87635; 87641; 87798; 96365; 96366; 99285; J0360; J0692; J1200; J1940; J2020; J2405; J2704; J3370; J3465; J7030; J7050; J8499; P9037; P9040; Q0163

== ENCOUNTER 2021-09-26 14:00 | Oncology outpatient (recurring) (ONCR) | payer MEDICARE, SELFPAY ==
[2021-08-28 15:34] VITALS: BP 148/67; PULSE 60; RESP 16; TEMP 36.9; O2SAT 97
[2021-08-28 15:36] LABS: Basophils % 0.3 %; Hematocrit 33.3 % (37.0-47.0); Hemoglobin 10.9 g/dL (11.5-15.3); Lymphocytes # 1.1 10^3/uL (0.8-4.8); Mean Corpuscular HGB Conc 32.7 g/dL (30.0-36.0); Mean Corpuscular Hemoglobin 34.1 pg (28.0-34.0); Mean Corpuscular Volume 104.1 fl (81-99); Mean Platelet Volume 9.9 fL (7.4-10.4); Monocytes # 0.7 10^3/uL (0.2-0.9); Monocytes % 22.2 %; Neutrophils # 1.45 10^3/uL (1.8-7.7); Neutrophils % 43.6 %; Nucleated Red Blood Cells % 0 %; Platelet Count 64 10^3/cmm (130-400); Red Cell Distribution Width 17.4 % (12.1-15.1); White Blood Count 3.3 10^3/uL (4.0-10.0)
[2021-09-04] MEDS: sodium chloride 0.9% 250 ML 100 ML IV (15:03)
[2021-09-04] MEDS: ondansetron 2 mg/ML SDV 2 mL 8 MG IVP (15:05)
[2021-09-04 15:21] VITALS: BP 175/77; PULSE 54; RESP 16; TEMP 36.7; O2SAT 95; BMI 24.5
[2021-09-04 16:29] VITALS: BP 152/64; PULSE 59; RESP 16; TEMP 36.7; O2SAT 98
[2021-09-05 10:43] VITALS: BP 161/64; PULSE 67; RESP 16; TEMP 36.3; O2SAT 97; BMI 24.9
[2021-09-05] MEDS: sodium chloride 0.9% 250 ML 100 ML IV (10:57)
[2021-09-05] MEDS: ondansetron 2 mg/ML SDV 2 mL 8 MG IVP (11:01)
[2021-09-05 12:20] VITALS: BP 139/68; PULSE 61; RESP 16; TEMP 36.5; O2SAT 98
[2021-09-06 10:43] VITALS: BP 150/71; PULSE 56; RESP 16; TEMP 36.4; O2SAT 99; BMI 24.9
[2021-09-06] MEDS: ondansetron 2 mg/ML SDV 2 mL 8 MG IVP (10:51)
[2021-09-06] MEDS: sodium chloride 0.9% 250 ML 100 ML IV (10:51)
[2021-09-06 12:21] VITALS: BP 154/75; PULSE 57; RESP 18; TEMP 36.7; O2SAT 99
[2021-09-07 10:52] VITALS: BP 132/63; PULSE 68; RESP 16; TEMP 36.6; O2SAT 98
[2021-09-07] MEDS: sodium chloride 0.9% 250 ML 100 ML IV (10:59)
[2021-09-07] MEDS: ondansetron 2 mg/ML SDV 2 mL 8 MG IVP (11:01)
[2021-09-07 12:37] VITALS: BP 138/57; PULSE 57; RESP 16; TEMP 36.4; O2SAT 96
[2021-09-08] MEDS: sodium chloride 0.9% 250 ML 75 ML IV (10:22)
[2021-09-08] MEDS: ondansetron 2 mg/ML SDV 2 mL 8 MG IVP (10:25)
[2021-09-08 12:03] VITALS: BP 172/74; PULSE 18; RESP 54; TEMP 36.3; O2SAT 99
[2021-09-11 09:29] LABS: Basophils % 0.3 %; Hematocrit 30.7 % (37.0-47.0); Lymphocytes # 0.7 10^3/uL (0.8-4.8); Lymphocytes % 18.2 %; Mean Corpuscular HGB Conc 32.6 g/dL (30.0-36.0); Mean Corpuscular Hemoglobin 34.4 pg (28.0-34.0); Mean Corpuscular Volume 105.5 fl (81-99); Mean Platelet Volume 11.6 fL (7.4-10.4); Monocytes # 0.2 10^3/uL (0.2-0.9); Monocytes % 6.3 %; Neutrophils # 2.88 10^3/uL (1.8-7.7); Neutrophils % 74.9 %; Nucleated Red Blood Cells % 0 %; Platelet Count 41 10^3/cmm (130-400); Red Blood Count 2.91 10^6/uL (4.1-5.3); Red Cell Distribution Width 16.9 % (12.1-15.1); White Blood Count 3.8 10^3/uL (4.0-10.0)
--- NOTE | 2021-09-11 11:09 | PC.NURSE ---
labs drawn via peripheral venipuncture x 1 attempt. pt PAC site still bruised and edematous, healing, improved from last visit. pt requests peripheral venipuncture. pressure dressing to site.
[2021-09-18 15:22] VITALS: BP 141/69; PULSE 67; RESP 18; TEMP 37.4; O2SAT 98
--- NOTE | 2021-09-18 15:29 | PC.NURSE ---
VENIPUNCTURE TO r ac X 1 ATTEMPT. PRESSURE DRESSING TO SITE.
[2021-09-18 15:30] LABS: Hematocrit 28.8 % (37.0-47.0); Hemoglobin 9.5 g/dL (11.5-15.3); Lymphocytes # 0.7 10^3/uL (0.8-4.8); Lymphocytes % 73.5 %; Mean Corpuscular Hemoglobin 34.9 pg (28.0-34.0); Mean Corpuscular Volume 105.9 fl (81-99); Monocytes # 0.1 10^3/uL (0.2-0.9); Monocytes % 10.2 %; Neutrophils % 16.3 %; Nucleated Red Blood Cells % 0 %; Red Blood Count 2.72 10^6/uL (4.1-5.3); Red Cell Distribution Width 16.7 % (12.1-15.1)
[2021-09-18 15:59] LABS: Slide Review Slide Review Perform
[2021-09-18 16:00] LABS: Neutrophils # 0.16 10^3/uL (1.8-7.7); Platelet Count 9 10^3/cmm (130-400)
[2021-09-19] MEDS: diphenhydrAMINE 25 mg Capsule PO (09:10)
[2021-09-19] MEDS: acetaminophen 325 mg Tablet 650 MG PO (09:10)
[2021-09-19 09:49] VITALS: BP 144/64; PULSE 60; RESP 18; TEMP 36.4; O2SAT 98
[2021-09-19 09:50] VITALS: BP 144/64; PULSE 60; RESP 18; TEMP 36.4; O2SAT 98
[2021-09-19 10:40] VITALS: BP 146/74; PULSE 59; RESP 18; TEMP 37; O2SAT 97
[2021-09-19 10:55] VITALS: BP 148/73; PULSE 59; RESP 18; TEMP 36.6; O2SAT 97
== END 2021-09-26 23:59 | disposition home or self-care (01) ==
PROVIDERS: PCP Internal Medicine; Visit Provider Internal Medicine Medical Oncology
DX: Z53.9 Procedure and treatment not carried out, unspecified reason (principal)
CPT/HCPCS: 36415; 36430; 36591; 36592; 85025; 86850; 86900; 96375; 96413; J0894; J2405; J7050; P9053

== ENCOUNTER 2021-10-26 10:00 | Oncology outpatient (recurring) (ONCR) | payer MEDICARE, SELFPAY ==
[2021-10-09 09:35] LABS: Basophils % 0.4 %; Hematocrit 30.1 % (37.0-47.0); Hemoglobin 9.9 g/dL (11.5-15.3); Lymphocytes # 1.1 10^3/uL (0.8-4.8); Lymphocytes % 39.7 %; Mean Corpuscular HGB Conc 32.9 g/dL (30.0-36.0); Mean Corpuscular Volume 100.3 fl (81-99); Mean Platelet Volume 10.6 fL (7.4-10.4); Monocytes # 0.7 10^3/uL (0.2-0.9); Monocytes % 25.5 %; Neutrophils % 33.3 %; Nucleated Red Blood Cells % 0 %; Platelet Count 61 10^3/cmm (130-400); Red Cell Distribution Width 18.2 % (12.1-15.1); White Blood Count 2.7 10^3/uL (4.0-10.0)
[2021-10-09 09:56] LABS: Alanine Aminotransferase 15 U/L (0-33); Albumin Level 4.3 g/dL (3.5-5.2); Alkaline Phosphatase 102 IU/L (35-105); Aspartate Amino Transferase 25 U/L (0-32); Blood Urea Nitrogen 8 mg/dL (8-23); Calcium 9.4 mg/dL (8.5-10.5); Carbon Dioxide 27 mmol/L (22-29); Chloride 100 mmol/L (98-107); Globulin 2.6 g/dL (1.3-4.6); Glomerular Filtration Rate 122.3 mL/min (90-130); Glucose 74 mg/dL (65-115); Osmolality Calculated 281 mOsm/kg (285-295); Sodium 137 mmol/L (136-145); Total Bilirubin 0.3 mg/dL (0.15-1.2); Total Protein 6.9 g/dL (6.6-8.7)
[2021-10-09 09:58] LABS: Anion Gap 14.1 (5-19); Lactate Dehydrogenase 211 U/L (135-214); Potassium 4.1 mmol/L (3.5-5.1)
[2021-10-09 10:11] LABS: Neutrophils # 0.89 10^3/uL (1.8-7.7)
--- NOTE | 2021-10-09 13:54 | PC.NURSE ---
peripheral venipuncture drawn x 1 attempt to L AC. pressure dressing to site. Pt had PAC removed, suture line in place on R SC area. area cleansed and redressed with chloraprep and gauze/tegaderm.
[2021-10-12 11:42] LABS: Basophils % 0.4 %; Hematocrit 29.3 % (37.0-47.0); Hemoglobin 9.5 g/dL (11.5-15.3); Lymphocytes # 0.9 10^3/uL (0.8-4.8); Lymphocytes % 32.5 %; Mean Corpuscular HGB Conc 32.4 g/dL (30.0-36.0); Mean Corpuscular Volume 101.7 fl (81-99); Mean Platelet Volume 10.2 fL (7.4-10.4); Monocytes # 0.7 10^3/uL (0.2-0.9); Monocytes % 23.3 %; Neutrophils # 1.22 10^3/uL (1.8-7.7); Neutrophils % 43.1 %; Nucleated Red Blood Cells % 0 %; Platelet Count 47 10^3/cmm (130-400); Red Blood Count 2.88 10^6/uL (4.1-5.3); Red Cell Distribution Width 18.7 % (12.1-15.1); White Blood Count 2.8 10^3/uL (4.0-10.0)
[2021-10-12 12:08] LABS: Alanine Aminotransferase 12 U/L (0-33); Albumin Level 4.3 g/dL (3.5-5.2); Alkaline Phosphatase 100 IU/L (35-105); Blood Urea Nitrogen 8 mg/dL (8-23); Calcium 9.3 mg/dL (8.5-10.5); Carbon Dioxide 27 mmol/L (22-29); Chloride 101 mmol/L (98-107); Globulin 2.6 g/dL (1.3-4.6); Glomerular Filtration Rate 99.1 mL/min (90-130); Glucose 80 mg/dL (65-115); Osmolality Calculated 285 mOsm/kg (285-295); Sodium 139 mmol/L (136-145); Total Bilirubin 0.4 mg/dL (0.15-1.2); Total Protein 6.9 g/dL (6.6-8.7)
[2021-10-12 12:13] LABS: Anion Gap 15.1 (5-19); Aspartate Amino Transferase 20 U/L (0-32); Potassium 4.1 mmol/L (3.5-5.1)
[2021-10-16 08:50] VITALS: BMI 24.1
[2021-10-16 09:10] LABS: Basophils % 0.3 %; Hemoglobin 10.1 g/dL (11.5-15.3); Lymphocytes % 25.7 %; Mean Corpuscular HGB Conc 32.6 g/dL (30.0-36.0); Mean Corpuscular Hemoglobin 33.3 pg (28.0-34.0); Mean Corpuscular Volume 102.3 fl (81-99); Mean Platelet Volume 10.2 fL (7.4-10.4); Monocytes # 0.8 10^3/uL (0.2-0.9); Monocytes % 20.6 %; Neutrophils # 1.94 10^3/uL (1.8-7.7); Neutrophils % 52.6 %; Nucleated Red Blood Cells % 0 %; Platelet Count 47 10^3/cmm (130-400); Red Blood Count 3.03 10^6/uL (4.1-5.3); Red Cell Distribution Width 19.6 % (12.1-15.1); White Blood Count 3.7 10^3/uL (4.0-10.0)
[2021-10-16 09:19] LABS: Alanine Aminotransferase 14 U/L (0-33); Albumin Level 4.5 g/dL (3.5-5.2); Alkaline Phosphatase 99 IU/L (35-105); Blood Urea Nitrogen 14 mg/dL (8-23); Calcium 9.6 mg/dL (8.5-10.5); Carbon Dioxide 26 mmol/L (22-29); Chloride 101 mmol/L (98-107); Globulin 2.8 g/dL (1.3-4.6); Glucose 115 mg/dL (65-115); Osmolality Calculated 287 mOsm/kg (285-295); Sodium 138 mmol/L (136-145); Total Bilirubin 0.3 mg/dL (0.15-1.2); Total Protein 7.3 g/dL (6.6-8.7)
[2021-10-16 09:22] LABS: Anion Gap 14.9 (5-19); Aspartate Amino Transferase 27 U/L (0-32); Lactate Dehydrogenase 281 U/L (135-214); Potassium 3.9 mmol/L (3.5-5.1)
[2021-10-16] MEDS: cyanocobalamin 1,000 mcg/mL SDV 1000 MCG SUBCUT (10:48)
[2021-10-23 09:38] VITALS: BMI 24.5
[2021-10-23 09:49] LABS: Eosinophils % 0.2 %; Hematocrit 29.7 % (37.0-47.0); Hemoglobin 9.9 g/dL (11.5-15.3); Lymphocytes # 0.8 10^3/uL (0.8-4.8); Lymphocytes % 17.4 %; Mean Corpuscular HGB Conc 33.3 g/dL (30.0-36.0); Mean Corpuscular Hemoglobin 34.3 pg (28.0-34.0); Mean Corpuscular Volume 102.8 fl (81-99); Mean Platelet Volume 9.5 fL (7.4-10.4); Monocytes # 0.7 10^3/uL (0.2-0.9); Monocytes % 15.5 %; Neutrophils # 3.15 10^3/uL (1.8-7.7); Neutrophils % 65.9 %; Nucleated Red Blood Cells % 0 %; Platelet Count 44 10^3/cmm (130-400); Red Blood Count 2.89 10^6/uL (4.1-5.3); White Blood Count 4.8 10^3/uL (4.0-10.0)
[2021-10-23 10:10] LABS: Alanine Aminotransferase 15 U/L (0-33); Albumin Level 4.3 g/dL (3.5-5.2); Alkaline Phosphatase 101 IU/L (35-105); Blood Urea Nitrogen 13 mg/dL (8-23); Calcium 9.2 mg/dL (8.5-10.5); Carbon Dioxide 28 mmol/L (22-29); Chloride 105 mmol/L (98-107); Globulin 2.6 g/dL (1.3-4.6); Glomerular Filtration Rate 158.3 mL/min (90-130); Glucose 111 mg/dL (65-115); Osmolality Calculated 293 mOsm/kg (285-295); Sodium 141 mmol/L (136-145); Total Bilirubin 0.3 mg/dL (0.15-1.2); Total Protein 6.9 g/dL (6.6-8.7)
[2021-10-23 10:15] LABS: Anion Gap 12.1 (5-19); Aspartate Amino Transferase 23 U/L (0-32); Lactate Dehydrogenase 275 U/L (135-214); Potassium 4.1 mmol/L (3.5-5.1)
[2021-10-23] MEDS: sodium chloride 0.9% 250 ML IV (13:25)
[2021-10-23] MEDS: ondansetron 2 mg/ML SDV 2 mL 8 MG IVP (13:26)
[2021-10-23 14:37] VITALS: BP 135/63; PULSE 63; RESP 16; TEMP 36.2; O2SAT 99
[2021-10-24] MEDS: sodium chloride 0.9% 250 ML 75 ML IV (11:05)
[2021-10-24] MEDS: ondansetron 2 mg/ML SDV 2 mL 8 MG IVP (11:06)
[2021-10-24 14:43] VITALS: BP 102/77; PULSE 78; RESP 18; TEMP 36.7; O2SAT 98
[2021-10-25] MEDS: sodium chloride 0.9% 250 ML 100 ML IV (10:20)
[2021-10-25] MEDS: ondansetron 2 mg/ML SDV 2 mL 8 MG IVP (10:21)
[2021-10-25 12:18] VITALS: BP 135/68; PULSE 61; TEMP 36.9; O2SAT 99
[2021-10-26] MEDS: sodium chloride 0.9% 250 ML 100 ML IV (10:20)
[2021-10-26] MEDS: ondansetron 2 mg/ML SDV 2 mL 8 MG IVP (10:23)
[2021-10-26 10:57] VITALS: BP 131/61; PULSE 62; RESP 16; TEMP 36.2; O2SAT 98
[2021-10-26 11:47] VITALS: BP 128/66; PULSE 75; RESP 16; TEMP 36.2; O2SAT 100
== END 2021-10-26 23:59 | disposition home or self-care (01) ==
PROVIDERS: PCP Internal Medicine; Visit Provider Internal Medicine Medical Oncology
DX: Z51.11 Encounter for antineoplastic chemotherapy (principal); C92.01 Acute myeloblastic leukemia, in remission
CPT/HCPCS: 36415; 80053; 83615; 85025; 87070; 87205; 96372; 96375; 96413; 99214; 99215; J0894; J2405; J3420; J7050; J7611

== ENCOUNTER 2021-11-23 11:30 | Oncology outpatient (recurring) (ONCR) | payer MEDICARE, SELFPAY ==
[2021-10-27] MEDS: ondansetron 2 mg/ML SDV 2 mL 8 MG IVP (10:02)
[2021-10-27] MEDS: sodium chloride 0.9% 250 ML 100 ML IV (10:02)
[2021-11-02 08:33] LABS: Hematocrit 26.5 % (37.0-47.0); Hemoglobin 8.5 g/dL (11.5-15.3); Lymphocytes # 0.6 10^3/uL (0.8-4.8); Lymphocytes % 41.9 %; Mean Corpuscular HGB Conc 32.1 g/dL (30.0-36.0); Monocytes # 0.1 10^3/uL (0.2-0.9); Monocytes % 10.3 %; Neutrophils % 47.1 %; Nucleated Red Blood Cells % 0 %; Red Cell Distribution Width 19.1 % (12.1-15.1); White Blood Count 1.4 10^3/uL (4.0-10.0)
[2021-11-02 08:39] LABS: Neutrophils # 0.64 10^3/uL (1.8-7.7); Platelet Count 26 10^3/cmm (130-400)
[2021-11-02 08:55] LABS: Alanine Aminotransferase 10 U/L (0-33); Albumin Level 4.3 g/dL (3.5-5.2); Alkaline Phosphatase 87 IU/L (35-105); Aspartate Amino Transferase 25 U/L (0-32); Blood Urea Nitrogen 11 mg/dL (8-23); Calcium 9.1 mg/dL (8.5-10.5); Carbon Dioxide 27 mmol/L (22-29); Chloride 105 mmol/L (98-107); Globulin 2.1 g/dL (1.3-4.6); Glomerular Filtration Rate 122.3 mL/min (90-130); Glucose 108 mg/dL (65-115); Osmolality Calculated 294 mOsm/kg (285-295); Sodium 142 mmol/L (136-145); Total Bilirubin 0.4 mg/dL (0.15-1.2); Total Protein 6.4 g/dL (6.6-8.7)
[2021-11-02 08:56] LABS: Anion Gap 14.1 (5-19); Potassium 4.1 mmol/L (3.5-5.1)
[2021-11-06 09:44] LABS: Hematocrit 25.5 % (37.0-47.0); Hemoglobin 8.5 g/dL (11.5-15.3); Lymphocytes # 0.6 10^3/uL (0.8-4.8); Lymphocytes % 59.2 %; Mean Corpuscular HGB Conc 33.3 g/dL (30.0-36.0); Mean Corpuscular Hemoglobin 34.1 pg (28.0-34.0); Mean Corpuscular Volume 102.4 fl (81-99); Monocytes # 0.1 10^3/uL (0.2-0.9); Monocytes % 9.7 %; Neutrophils % 31.1 %; Nucleated Red Blood Cells % 0 %; Red Blood Count 2.49 10^6/uL (4.1-5.3)
[2021-11-06 10:02] LABS: Alanine Aminotransferase 16 U/L (0-33); Albumin Level 4.3 g/dL (3.5-5.2); Alkaline Phosphatase 102 IU/L (35-105); Aspartate Amino Transferase 27 U/L (0-32); Blood Urea Nitrogen 10 mg/dL (8-23); Calcium 9.2 mg/dL (8.5-10.5); Carbon Dioxide 25 mmol/L (22-29); Chloride 101 mmol/L (98-107); Globulin 2.3 g/dL (1.3-4.6); Glomerular Filtration Rate 122.3 mL/min (90-130); Glucose 106 mg/dL (65-115); Osmolality Calculated 285 mOsm/kg (285-295); Sodium 138 mmol/L (136-145); Total Bilirubin 0.5 mg/dL (0.15-1.2); Total Protein 6.6 g/dL (6.6-8.7)
[2021-11-06 10:10] LABS: Slide Review Slide Review Perform
[2021-11-06 10:12] LABS: Neutrophils # 0.32 10^3/uL (1.8-7.7); Platelet Count 13 10^3/cmm (130-400)
[2021-11-06 12:02] LABS: Anion Gap 15.8 (5-19); Potassium 3.8 mmol/L (3.5-5.1)
[2021-11-06] MEDS: diphenhydrAMINE 25 mg Capsule PO (15:22)
[2021-11-06] MEDS: acetaminophen 325 mg Tablet 650 MG PO (15:23)
[2021-11-06] MEDS: sodium chloride 0.9% 100 mL Bag 250 ML IV (15:23)
[2021-11-06 15:30] VITALS: BP 141/67; PULSE 65; RESP 16; TEMP 36.9; O2SAT 97
[2021-11-06 15:44] VITALS: BP 138/59; PULSE 64; RESP 16; TEMP 36.3; O2SAT 97
[2021-11-09 10:21] LABS: Hematocrit 29.8 % (37.0-47.0); Hemoglobin 9.5 g/dL (11.5-15.3); Lymphocytes # 0.7 10^3/uL (0.8-4.8); Mean Corpuscular HGB Conc 31.9 g/dL (30.0-36.0); Mean Corpuscular Hemoglobin 33.8 pg (28.0-34.0); Mean Platelet Volume 9.4 fL (7.4-10.4); Nucleated Red Blood Cells % 0 %; Platelet Count 33 10^3/cmm (130-400); Red Blood Count 2.81 10^6/uL (4.1-5.3); Red Cell Distribution Width 19.6 % (12.1-15.1)
[2021-11-09 10:25] LABS: Neutrophils # 0.26 10^3/uL (1.8-7.7)
[2021-11-09 10:37] LABS: Alanine Aminotransferase 17 U/L (0-33); Albumin Level 4.9 g/dL (3.5-5.2); Alkaline Phosphatase 102 IU/L (35-105); Blood Urea Nitrogen 13 mg/dL (8-23); Calcium 9.5 mg/dL (8.5-10.5); Carbon Dioxide 26 mmol/L (22-29); Chloride 104 mmol/L (98-107); Globulin 2.7 g/dL (1.3-4.6); Glomerular Filtration Rate 122.3 mL/min (90-130); Glucose 91 mg/dL (65-115); Osmolality Calculated 290 mOsm/kg (285-295); Sodium 140 mmol/L (136-145); Total Bilirubin 0.4 mg/dL (0.15-1.2); Total Protein 7.6 g/dL (6.6-8.7)
[2021-11-09 10:54] LABS: Anion Gap 14.1 (5-19); Aspartate Amino Transferase 28 U/L (0-32); Potassium 4.1 mmol/L (3.5-5.1)
[2021-11-13] MEDS: cyanocobalamin 1,000 mcg/mL SDV 1000 MCG IM (12:32)
[2021-11-13 12:50] VITALS: BP 142/63; PULSE 60
[2021-11-13 12:52] LABS: Hematocrit 29.4 % (37.0-47.0); Hemoglobin 9.5 g/dL (11.5-15.3); Lymphocytes # 0.6 10^3/uL (0.8-4.8); Lymphocytes % 90.1 %; Mean Corpuscular HGB Conc 32.3 g/dL (30.0-36.0); Mean Corpuscular Hemoglobin 34.7 pg (28.0-34.0); Mean Corpuscular Volume 107.3 fl (81-99); Monocytes % 1.4 %; Neutrophils % 7.1 %; Nucleated Red Blood Cells % 0 %; Platelet Count 37 10^3/cmm (130-400); Red Blood Count 2.74 10^6/uL (4.1-5.3); Red Cell Distribution Width 20.5 % (12.1-15.1)
[2021-11-13 13:07] LABS: Alanine Aminotransferase 16 U/L (0-33); Albumin Level 4.5 g/dL (3.5-5.2); Alkaline Phosphatase 97 IU/L (35-105); Blood Urea Nitrogen 9 mg/dL (8-23); Calcium 9.4 mg/dL (8.5-10.5); Carbon Dioxide 26 mmol/L (22-29); Chloride 103 mmol/L (98-107); Globulin 1.9 g/dL (1.3-4.6); Glomerular Filtration Rate 122.3 mL/min (90-130); Glucose 149 mg/dL (65-115); Osmolality Calculated 293 mOsm/kg (285-295); Sodium 141 mmol/L (136-145); Total Bilirubin 0.5 mg/dL (0.15-1.2); Total Protein 6.4 g/dL (6.6-8.7)
[2021-11-13 13:16] LABS: Anion Gap 15.9 (5-19); Potassium 3.9 mmol/L (3.5-5.1)
[2021-11-13 13:17] LABS: Aspartate Amino Transferase 26 U/L (0-32); Lactate Dehydrogenase 272 U/L (135-214)
[2021-11-13 13:20] LABS: Slide Review Slide Review Perform
[2021-11-13 13:21] LABS: White Blood Count 0.7 10^3/uL (4.0-10.0)
[2021-11-13 13:22] LABS: Neutrophils # 0.05 10^3/uL (1.8-7.7)
[2021-11-16 12:02] LABS: Hematocrit 29.1 % (37.0-47.0); Hemoglobin 9.5 g/dL (11.5-15.3); Mean Corpuscular HGB Conc 32.6 g/dL (30.0-36.0); Mean Corpuscular Hemoglobin 35.3 pg (28.0-34.0); Mean Corpuscular Volume 108.2 fl (81-99); Platelet Count 57 10^3/cmm (130-400); Red Blood Count 2.69 10^6/uL (4.1-5.3); Red Cell Distribution Width 20.7 % (12.1-15.1)
[2021-11-16 12:34] LABS: Alanine Aminotransferase 14 U/L (0-33); Albumin Level 4.5 g/dL (3.5-5.2); Alkaline Phosphatase 95 IU/L (35-105); Aspartate Amino Transferase 22 U/L (0-32); Blood Urea Nitrogen 10 mg/dL (8-23); Calcium 9.3 mg/dL (8.5-10.5); Carbon Dioxide 28 mmol/L (22-29); Chloride 102 mmol/L (98-107); Globulin 2.3 g/dL (1.3-4.6); Glomerular Filtration Rate 122.3 mL/min (90-130); Glucose 110 mg/dL (65-115); Osmolality Calculated 286 mOsm/kg (285-295); Sodium 138 mmol/L (136-145); Total Bilirubin 0.5 mg/dL (0.15-1.2); Total Protein 6.8 g/dL (6.6-8.7)
[2021-11-16 13:08] LABS: Absolute Segmented Neutrophil 0.1 10/cmm (1.6-7.1); Lymphocytes 81 %; Segmented Neutrophils 9 %; Slide Review Slide Review Perform; Total Cells Counted 100 (0-100)
[2021-11-16 13:09] LABS: Lymphocytes Absolute 0.7 10^3/cmm (1.2-3.4); Platelet Estimate Decreased (Normal)
[2021-11-16 13:10] LABS: Absolute Neutrophil 0.1 10^3/cmm (1.4-6.5)
[2021-11-16 13:11] LABS: White Blood Count 0.8 10^3/uL (4.0-10.0)
[2021-11-16 13:30] LABS: Anion Gap 12.2 (5-19); Potassium 4.2 mmol/L (3.5-5.1)
[2021-11-16 13:54] LABS: Lactate Dehydrogenase 230 U/L (135-214)
[2021-11-23 12:07] VITALS: BP 142/64; PULSE 56; RESP 16; TEMP 36.6; O2SAT 98
[2021-11-23 12:46] LABS: Hematocrit 28.3 % (37.0-47.0); Lymphocytes # 0.7 10^3/uL (0.8-4.8); Lymphocytes % 45.6 %; Mean Corpuscular HGB Conc 31.8 g/dL (30.0-36.0); Mean Corpuscular Hemoglobin 34.7 pg (28.0-34.0); Mean Corpuscular Volume 109.3 fl (81-99); Monocytes # 0.2 10^3/uL (0.2-0.9); Neutrophils % 38.8 %; Nucleated Red Blood Cells % 0 %; Platelet Count 67 10^3/cmm (130-400); Red Blood Count 2.59 10^6/uL (4.1-5.3); White Blood Count 1.6 10^3/uL (4.0-10.0)
[2021-11-23 13:14] LABS: Alanine Aminotransferase 14 U/L (0-33); Alkaline Phosphatase 98 IU/L (35-105); Aspartate Amino Transferase 26 U/L (0-32); Blood Urea Nitrogen 9 mg/dL (8-23); Calcium 9.4 mg/dL (8.5-10.5); Carbon Dioxide 28 mmol/L (22-29); Chloride 102 mmol/L (98-107); Globulin 2.4 g/dL (1.3-4.6); Glomerular Filtration Rate 122.3 mL/min (90-130); Glucose 84 mg/dL (65-115); Osmolality Calculated 290 mOsm/kg (285-295); Sodium 141 mmol/L (136-145); Total Bilirubin 0.5 mg/dL (0.15-1.2); Total Protein 6.4 g/dL (6.6-8.7)
[2021-11-23 13:25] LABS: Lactate Dehydrogenase 229 U/L (135-214)
[2021-11-23 13:41] LABS: Slide Review Slide Review Perform
[2021-11-23 13:42] LABS: Neutrophils # 0.62 10^3/uL (1.8-7.7)
== END 2021-11-26 23:59 | disposition home or self-care (01) ==
PROVIDERS: Internal Medicine Infectious Disease; PCP Internal Medicine; Visit Provider Internal Medicine Medical Oncology
DX: C92.00 Acute myeloblastic leukemia, not having achieved remission (principal)
CPT/HCPCS: 36415; 36430; 36591; 80053; 80299; 83615; 85007; 85025; 86900; 96372; 96375; 96413; J0894; J2405; J3420; J7050; P9040

== ENCOUNTER 2021-12-27 11:00 | Oncology outpatient (recurring) (ONCR) | payer MEDICARE, SELFPAY ==
[2021-11-27 12:15] LABS: Hematocrit 26.3 % (37.0-47.0); Hemoglobin 8.6 g/dL (11.5-15.3); Lymphocytes # 0.9 10^3/uL (0.8-4.8); Lymphocytes % 33.3 %; Mean Corpuscular HGB Conc 32.7 g/dL (30.0-36.0); Mean Corpuscular Hemoglobin 35.5 pg (28.0-34.0); Mean Corpuscular Volume 108.7 fl (81-99); Mean Platelet Volume 13.5 fL (7.4-10.4); Monocytes # 0.6 10^3/uL (0.2-0.9); Monocytes % 21.5 %; Neutrophils # 1.24 10^3/uL (1.8-7.7); Neutrophils % 44.5 %; Nucleated Red Blood Cells % 0 %; Platelet Count 49 10^3/cmm (130-400); Red Blood Count 2.42 10^6/uL (4.1-5.3); Red Cell Distribution Width 19.7 % (12.1-15.1); White Blood Count 2.8 10^3/uL (4.0-10.0)
[2021-11-27 12:41] LABS: Alanine Aminotransferase 16 U/L (0-33); Albumin Level 3.9 g/dL (3.5-5.2); Alkaline Phosphatase 97 IU/L (35-105); Aspartate Amino Transferase 28 U/L (0-32); Blood Urea Nitrogen 8 mg/dL (8-23); Calcium 9.3 mg/dL (8.5-10.5); Carbon Dioxide 28 mmol/L (22-29); Chloride 104 mmol/L (98-107); Globulin 2.3 g/dL (1.3-4.6); Glomerular Filtration Rate 158.3 mL/min (90-130); Glucose 88 mg/dL (65-115); Osmolality Calculated 290 mOsm/kg (285-295); Sodium 141 mmol/L (136-145); Total Bilirubin 0.5 mg/dL (0.15-1.2); Total Protein 6.2 g/dL (6.6-8.7)
[2021-11-27 12:42] LABS: Anion Gap 12.8 (5-19); Lactate Dehydrogenase 233 U/L (135-214); Potassium 3.8 mmol/L (3.5-5.1)
[2021-11-30 11:31] VITALS: BP 161/65; PULSE 55; RESP 18; TEMP 36.4; O2SAT 96
[2021-11-30 12:03] LABS: Hematocrit 26.9 % (37.0-47.0); Hemoglobin 8.7 g/dL (11.5-15.3); Lymphocytes # 0.9 10^3/uL (0.8-4.8); Lymphocytes % 28.2 %; Mean Corpuscular HGB Conc 32.3 g/dL (30.0-36.0); Mean Corpuscular Hemoglobin 34.9 pg (28.0-34.0); Monocytes # 0.7 10^3/uL (0.2-0.9); Monocytes % 21.2 %; Neutrophils # 1.65 10^3/uL (1.8-7.7); Nucleated Red Blood Cells % 0 %; Platelet Count 43 10^3/cmm (130-400); Red Blood Count 2.49 10^6/uL (4.1-5.3); Red Cell Distribution Width 19.3 % (12.1-15.1); White Blood Count 3.3 10^3/uL (4.0-10.0)
[2021-11-30 12:35] LABS: Alanine Aminotransferase 14 U/L (0-33); Albumin Level 4.1 g/dL (3.5-5.2); Alkaline Phosphatase 97 IU/L (35-105); Aspartate Amino Transferase 23 U/L (0-32); Blood Urea Nitrogen 9 mg/dL (8-23); Calcium 9.2 mg/dL (8.5-10.5); Carbon Dioxide 29 mmol/L (22-29); Chloride 104 mmol/L (98-107); Glomerular Filtration Rate 158.3 mL/min (90-130); Glucose 67 mg/dL (65-115); Osmolality Calculated 289 mOsm/kg (285-295); Sodium 141 mmol/L (136-145); Total Bilirubin 0.4 mg/dL (0.15-1.2); Total Protein 6.1 g/dL (6.6-8.7)
[2021-11-30 12:36] LABS: Anion Gap 12.1 (5-19); Potassium 4.1 mmol/L (3.5-5.1)
[2021-11-30 12:37] LABS: Lactate Dehydrogenase 245 U/L (135-214)
[2021-12-04 10:25] LABS: Hematocrit 26.1 % (37.0-47.0); Hemoglobin 8.3 g/dL (11.5-15.3); Lymphocytes # 0.8 10^3/uL (0.8-4.8); Lymphocytes % 22.2 %; Mean Corpuscular HGB Conc 31.8 g/dL (30.0-36.0); Mean Corpuscular Volume 110.1 fl (81-99); Monocytes # 0.6 10^3/uL (0.2-0.9); Monocytes % 17.9 %; Neutrophils # 2.06 10^3/uL (1.8-7.7); Neutrophils % 59.3 %; Nucleated Red Blood Cells % 0 %; Platelet Count 37 10^3/cmm (130-400); Red Blood Count 2.37 10^6/uL (4.1-5.3); Red Cell Distribution Width 19.6 % (12.1-15.1); White Blood Count 3.5 10^3/uL (4.0-10.0)
[2021-12-04 10:54] LABS: Alanine Aminotransferase 15 U/L (0-33); Albumin Level 3.9 g/dL (3.5-5.2); Alkaline Phosphatase 96 IU/L (35-105); Aspartate Amino Transferase 32 U/L (0-32); Blood Urea Nitrogen 10 mg/dL (8-23); Carbon Dioxide 27 mmol/L (22-29); Chloride 104 mmol/L (98-107); Globulin 1.8 g/dL (1.3-4.6); Glomerular Filtration Rate 158.3 mL/min (90-130); Glucose 86 mg/dL (65-115); Osmolality Calculated 290 mOsm/kg (285-295); Sodium 141 mmol/L (136-145); Total Bilirubin 0.4 mg/dL (0.15-1.2); Total Protein 5.7 g/dL (6.6-8.7)
[2021-12-04 11:05] LABS: Anion Gap 14.1 (5-19); Lactate Dehydrogenase 245 U/L (135-214); Potassium 4.1 mmol/L (3.5-5.1)
[2021-12-07 09:54] LABS: Basophils % 0.2 %; Eosinophils % 0.2 %; Hematocrit 28.2 % (37.0-47.0); Lymphocytes % 22.3 %; Mean Corpuscular HGB Conc 31.9 g/dL (30.0-36.0); Mean Corpuscular Hemoglobin 35.4 pg (28.0-34.0); Mean Platelet Volume 10.9 fL (7.4-10.4); Monocytes # 0.7 10^3/uL (0.2-0.9); Monocytes % 15.2 %; Neutrophils # 2.76 10^3/uL (1.8-7.7); Neutrophils % 61.7 %; Nucleated Red Blood Cells % 0 %; Platelet Count 45 10^3/cmm (130-400); Red Blood Count 2.54 10^6/uL (4.1-5.3); Red Cell Distribution Width 19.2 % (12.1-15.1); White Blood Count 4.5 10^3/uL (4.0-10.0)
[2021-12-07 10:17] LABS: Alanine Aminotransferase 12 U/L (0-33); Alkaline Phosphatase 106 IU/L (35-105); Blood Urea Nitrogen 8 mg/dL (8-23); Calcium 9.2 mg/dL (8.5-10.5); Carbon Dioxide 27 mmol/L (22-29); Chloride 105 mmol/L (98-107); Globulin 2.3 g/dL (1.3-4.6); Glomerular Filtration Rate 158.3 mL/min (90-130); Glucose 97 mg/dL (65-115); Osmolality Calculated 290 mOsm/kg (285-295); Sodium 141 mmol/L (136-145); Total Bilirubin 0.4 mg/dL (0.15-1.2); Total Protein 6.3 g/dL (6.6-8.7)
[2021-12-07 10:19] LABS: Anion Gap 13.1 (5-19); Aspartate Amino Transferase 30 U/L (0-32); Lactate Dehydrogenase 269 U/L (135-214); Potassium 4.1 mmol/L (3.5-5.1)
[2021-12-07 10:29] LABS: Slide Review Slide Review Perform
[2021-12-11 11:09] VITALS: BP 167/70; PULSE 61; RESP 18; TEMP 36.8; O2SAT 96
[2021-12-11] MEDS: cyanocobalamin 1,000 mcg/mL SDV 1000 MCG IM (11:23)
[2021-12-11 11:37] LABS: Eosinophils % 0.2 %; Hematocrit 27.5 % (37.0-47.0); Hemoglobin 8.7 g/dL (11.5-15.3); Lymphocytes # 0.8 10^3/uL (0.8-4.8); Lymphocytes % 17.6 %; Mean Corpuscular HGB Conc 31.6 g/dL (30.0-36.0); Mean Corpuscular Hemoglobin 35.1 pg (28.0-34.0); Mean Corpuscular Volume 110.9 fl (81-99); Monocytes # 0.7 10^3/uL (0.2-0.9); Monocytes % 14.7 %; Neutrophils # 3.18 10^3/uL (1.8-7.7); Neutrophils % 66.9 %; Nucleated Red Blood Cells % 0 %; Platelet Count 43 10^3/cmm (130-400); Red Blood Count 2.48 10^6/uL (4.1-5.3); Red Cell Distribution Width 18.7 % (12.1-15.1); White Blood Count 4.8 10^3/uL (4.0-10.0)
[2021-12-11 12:25] LABS: Alanine Aminotransferase 12 U/L (0-33); Albumin Level 4.1 g/dL (3.5-5.2); Alkaline Phosphatase 101 U/L (35-105); Blood Urea Nitrogen 9 mg/dL (8-23); Calcium 9.1 mg/dL (8.5-10.5); Carbon Dioxide 28 mmol/L (22-29); Chloride 104 mmol/L (98-107); Globulin 2.3 g/dL (1.3-4.6); Glomerular Filtration Rate 158.3 mL/min (90-130); Glucose 99 mg/dL (65-115); Osmolality Calculated 291 mOsm/kg (285-295); Sodium 141 mmol/L (136-145); Total Bilirubin 0.5 mg/dL (0.15-1.2); Total Protein 6.4 g/dL (6.6-8.7)
[2021-12-11 12:33] LABS: Anion Gap 13.1 (5-19); Aspartate Amino Transferase 25 U/L (0-32); Lactate Dehydrogenase 295 U/L (135-214); Potassium 4.1 mmol/L (3.5-5.1)
[2021-12-21 14:47] LABS: Basophils % 0.2 %; Eosinophils % 0.7 %; Hematocrit 29.2 % (37.0-47.0); Hemoglobin 9.2 g/dL (11.5-15.3); Lymphocytes # 1.1 10^3/uL (0.8-4.8); Lymphocytes % 19.5 %; Mean Corpuscular HGB Conc 31.5 g/dL (30.0-36.0); Mean Corpuscular Hemoglobin 35.4 pg (28.0-34.0); Mean Corpuscular Volume 112.3 fl (81-99); Monocytes # 0.6 10^3/uL (0.2-0.9); Monocytes % 9.9 %; Neutrophils # 3.92 10^3/uL (1.8-7.7); Nucleated Red Blood Cells % 0 %; Platelet Count 51 10^3/cmm (130-400); Red Cell Distribution Width 18.2 % (12.1-15.1); White Blood Count 5.7 10^3/uL (4.0-10.0)
[2021-12-21 15:09] LABS: Alanine Aminotransferase 15 U/L (0-33); Albumin Level 4.3 g/dL (3.5-5.2); Alkaline Phosphatase 102 U/L (35-105); Blood Urea Nitrogen 11 mg/dL (8-23); Calcium 9.4 mg/dL (8.5-10.5); Carbon Dioxide 29 mmol/L (22-29); Chloride 103 mmol/L (98-107); Globulin 2.7 g/dL (1.3-4.6); Glomerular Filtration Rate 99.1 mL/min (90-130); Glucose 154 mg/dL (65-115); Osmolality Calculated 296 mOsm/kg (285-295); Sodium 142 mmol/L (136-145); Total Bilirubin 0.5 mg/dL (0.15-1.2)
[2021-12-21 15:10] LABS: Aspartate Amino Transferase 29 U/L (0-32); Lactate Dehydrogenase 334 U/L (135-214)
[2021-12-21 15:29] LABS: Slide Review Slide Review Perform
[2021-12-25 09:29] LABS: Eosinophils # 0.1 10^3/uL (0.0-0.8); Eosinophils % 0.9 %; Hematocrit 29.7 % (37.0-47.0); Hemoglobin 9.5 g/dL (11.5-15.3); Lymphocytes % 15.1 %; Mean Corpuscular Hemoglobin 35.2 pg (28.0-34.0); Mean Platelet Volume 10.4 fL (7.4-10.4); Monocytes # 0.7 10^3/uL (0.2-0.9); Monocytes % 11.4 %; Neutrophils # 4.62 10^3/uL (1.8-7.7); Neutrophils % 72.1 %; Nucleated Red Blood Cells % 0 %; Platelet Count 54 10^3/cmm (130-400); White Blood Count 6.4 10^3/uL (4.0-10.0)
[2021-12-25 10:04] LABS: Alanine Aminotransferase 14 U/L (0-33); Albumin Level 4.3 g/dL (3.5-5.2); Alkaline Phosphatase 110 U/L (35-105); Blood Urea Nitrogen 9 mg/dL (8-23); Calcium 9.4 mg/dL (8.5-10.5); Carbon Dioxide 28 mmol/L (22-29); Chloride 103 mmol/L (98-107); Globulin 2.5 g/dL (1.3-4.6); Glomerular Filtration Rate 99.1 mL/min (90-130); Glucose 119 mg/dL (65-115); Osmolality Calculated 292 mOsm/kg (285-295); Sodium 141 mmol/L (136-145); Total Bilirubin 0.4 mg/dL (0.15-1.2); Total Protein 6.8 g/dL (6.6-8.7)
[2021-12-25 10:05] LABS: Anion Gap 13.9 (5-19); Aspartate Amino Transferase 28 U/L (0-32); Lactate Dehydrogenase 303 U/L (135-214); Potassium 3.9 mmol/L (3.5-5.1)
[2021-12-25 10:22] VITALS: BMI 23.8
[2021-12-25] MEDS: cyanocobalamin 1,000 mcg/mL SDV 1000 MCG IM (12:06)
[2021-12-25] MEDS: ondansetron 2 mg/ML SDV 2 mL 8 MG IVP (12:06)
[2021-12-25] MEDS: sodium chloride 0.9% 250 ML 100 ML IV (12:06)
[2021-12-25 13:15] VITALS: BP 150/67; PULSE 58; RESP 16; TEMP 36.6; O2SAT 95
[2021-12-26] MEDS: sodium chloride 0.9% 250 ML 100 ML IV (11:08)
[2021-12-26] MEDS: ondansetron 2 mg/ML SDV 2 mL 8 MG IVP (11:19)
[2021-12-26 12:43] VITALS: BP 169/70; PULSE 59; RESP 16; TEMP 36.4; O2SAT 99
[2021-12-27] MEDS: sodium chloride 0.9% 250 ML 100 ML IV (11:26)
[2021-12-27] MEDS: ondansetron 2 mg/ML SDV 2 mL 8 MG IVP (11:26)
[2021-12-27 12:45] VITALS: BP 151/65; PULSE 60; RESP 16; TEMP 36.3; O2SAT 97
== END 2021-12-27 23:59 | disposition home or self-care (01) ==
PROVIDERS: PCP Internal Medicine; Visit Provider Internal Medicine Medical Oncology
DX: Z51.11 Encounter for antineoplastic chemotherapy (principal); C92.00 Acute myeloblastic leukemia, not having achieved remission
CPT/HCPCS: 36591; 80053; 83615; 85025; 96372; 96375; 96413; 99214; 99215; J0894; J2405; J3420; J7050

== ENCOUNTER 2022-01-22 16:00 | Oncology outpatient (recurring) (ONCR) | payer MEDICARE, SELFPAY ==
[2021-12-28] MEDS: sodium chloride 0.9% 250 ML 100 ML IV (11:02)
[2021-12-28] MEDS: ondansetron 2 mg/ML SDV 2 mL 8 MG IVP (11:02)
[2021-12-28 12:34] VITALS: BP 152/70; PULSE 56; RESP 16; TEMP 36.9; O2SAT 99
[2021-12-29] MEDS: sodium chloride 0.9% 250 ML 75 ML IV (10:09)
[2021-12-29] MEDS: ondansetron 2 mg/ML SDV 2 mL 8 MG IVP (10:11)
[2021-12-29 10:30] VITALS: BMI 24.0
[2021-12-29 11:30] VITALS: BP 150/64; PULSE 95; RESP 16; TEMP 35.9; O2SAT 96
[2022-01-02 11:07] LABS: Hemoglobin 9.6 g/dL (11.5-15.3); Nucleated Red Blood Cells % 0 %; White Blood Count 4.6 10^3/uL (4.0-10.0)
[2022-01-02 11:13] LABS: Alanine Aminotransferase 16 U/L (0-33); Albumin Level 4.5 g/dL (3.5-5.2); Alkaline Phosphatase 107 U/L (35-105); Aspartate Amino Transferase 26 U/L (0-32); Blood Urea Nitrogen 12 mg/dL (8-23); Calcium 9.6 mg/dL (8.5-10.5); Carbon Dioxide 27 mmol/L (22-29); Chloride 104 mmol/L (98-107); Globulin 2.2 g/dL (1.3-4.6); Glomerular Filtration Rate 122.3 mL/min (90-130); Glucose 94 mg/dL (65-115); Osmolality Calculated 290 mOsm/kg (285-295); Sodium 140 mmol/L (136-145); Total Bilirubin 0.4 mg/dL (0.15-1.2); Total Protein 6.7 g/dL (6.6-8.7)
[2022-01-02 11:14] LABS: Anion Gap 13.5 (5-19); Potassium 4.5 mmol/L (3.5-5.1)
[2022-01-02 11:20] LABS: Eosinophils % 0.2 %; Hematocrit 30.1 % (37.0-47.0); Lymphocytes # 0.7 10^3/uL (0.8-4.8); Lymphocytes % 15.3 %; Mean Corpuscular HGB Conc 31.9 g/dL (30.0-36.0); Mean Corpuscular Hemoglobin 35.6 pg (28.0-34.0); Mean Corpuscular Volume 111.5 fl (81-99); Monocytes # 0.2 10^3/uL (0.2-0.9); Monocytes % 4.4 %; Neutrophils # 3.63 10^3/uL (1.8-7.7); Neutrophils % 79.4 %; Platelet Count 32 10^3/cmm (130-400); Red Cell Distribution Width 16.7 % (12.1-15.1)
[2022-01-02 12:16] LABS: Slide Review Slide Review Perform
[2022-01-09] MEDS: cyanocobalamin 1,000 mcg/mL SDV 1000 MCG IM (11:49)
[2022-01-09 11:52] LABS: Hematocrit 27.8 % (37.0-47.0); Hemoglobin 8.9 g/dL (11.5-15.3); Mean Corpuscular Hemoglobin 35.3 pg (28.0-34.0); Mean Corpuscular Volume 110.3 fl (81-99); Monocytes # 0.1 10^3/uL (0.2-0.9); Monocytes % 7.5 %; Neutrophils % 21.7 %; Nucleated Red Blood Cells % 0 %; Red Blood Count 2.52 10^6/uL (4.1-5.3); Red Cell Distribution Width 16.1 % (12.1-15.1); White Blood Count 1.5 10^3/uL (4.0-10.0)
[2022-01-09 12:18] LABS: Neutrophils # 0.32 10^3/uL (1.8-7.7); Platelet Count 8 10^3/cmm (130-400); Slide Review Slide Review Perform
[2022-01-09 12:21] LABS: Alanine Aminotransferase 16 U/L (0-33); Albumin Level 4.5 g/dL (3.5-5.2); Alkaline Phosphatase 105 U/L (35-105); Aspartate Amino Transferase 23 U/L (0-32); Blood Urea Nitrogen 14 mg/dL (8-23); Calcium 9.6 mg/dL (8.5-10.5); Carbon Dioxide 23 mmol/L (22-29); Chloride 103 mmol/L (98-107); Globulin 2.4 g/dL (1.3-4.6); Glomerular Filtration Rate 122.3 mL/min (90-130); Glucose 84 mg/dL (65-115); Osmolality Calculated 284 mOsm/kg (285-295); Sodium 137 mmol/L (136-145); Total Bilirubin 0.5 mg/dL (0.15-1.2); Total Protein 6.9 g/dL (6.6-8.7)
[2022-01-09 12:22] LABS: Anion Gap 15.5 (5-19); Potassium 4.5 mmol/L (3.5-5.1)
[2022-01-10] MEDS: diphenhydrAMINE 25 mg Capsule PO (13:33)
[2022-01-10] MEDS: acetaminophen 325 mg Tablet 650 MG PO (13:33)
[2022-01-10 13:40] VITALS: BP 150/70; PULSE 56; RESP 18; TEMP 36.6; O2SAT 98
[2022-01-10 13:47] VITALS: PULSE 56; RESP 18; TEMP 36.6; O2SAT 98
[2022-01-10 13:55] VITALS: BP 150/70; PULSE 56; RESP 18; TEMP 36.6
[2022-01-15 11:04] LABS: Hematocrit 28.3 % (37.0-47.0); Hemoglobin 9.2 g/dL (11.5-15.3); Lymphocytes # 0.8 10^3/uL (0.8-4.8); Lymphocytes % 91.1 %; Mean Corpuscular HGB Conc 32.5 g/dL (30.0-36.0); Mean Corpuscular Hemoglobin 35.9 pg (28.0-34.0); Mean Corpuscular Volume 110.5 fl (81-99); Neutrophils % 8.9 %; Nucleated Red Blood Cells % 0 %; Red Blood Count 2.56 10^6/uL (4.1-5.3)
[2022-01-15 11:29] LABS: Slide Review Slide Review Perform
[2022-01-15 11:30] LABS: Neutrophils # 0.08 10^3/uL (1.8-7.7); Platelet Count 22 10^3/cmm (130-400); White Blood Count 0.9 10^3/uL (4.0-10.0)
[2022-01-15 11:47] LABS: Alanine Aminotransferase 13 U/L (0-33); Albumin Level 4.1 g/dL (3.5-5.2); Alkaline Phosphatase 110 U/L (35-105); Aspartate Amino Transferase 21 U/L (0-32); Blood Urea Nitrogen 13 mg/dL (8-23); Calcium 9.3 mg/dL (8.5-10.5); Carbon Dioxide 27 mmol/L (22-29); Chloride 103 mmol/L (98-107); Globulin 2.6 g/dL (1.3-4.6); Glomerular Filtration Rate 122.3 mL/min (90-130); Glucose 92 mg/dL (65-115); Osmolality Calculated 284 mOsm/kg (285-295); Sodium 137 mmol/L (136-145); Total Bilirubin 0.4 mg/dL (0.15-1.2); Total Protein 6.7 g/dL (6.6-8.7)
[2022-01-15 11:54] LABS: Anion Gap 11.5 (5-19); Potassium 4.5 mmol/L (3.5-5.1)
[2022-01-15 11:55] LABS: Lactate Dehydrogenase 211 U/L (135-214)
[2022-01-18 13:23] LABS: Basophils % 1.2 %; Hematocrit 29.1 % (37.0-47.0); Hemoglobin 9.4 g/dL (11.5-15.3); Lymphocytes # 0.8 10^3/uL (0.8-4.8); Lymphocytes % 93.9 %; Mean Corpuscular HGB Conc 32.3 g/dL (30.0-36.0); Mean Corpuscular Hemoglobin 35.7 pg (28.0-34.0); Mean Corpuscular Volume 110.6 fl (81-99); Monocytes % 1.2 %; Neutrophils % 3.7 %; Nucleated Red Blood Cells % 0 %; Red Blood Count 2.63 10^6/uL (4.1-5.3); Red Cell Distribution Width 17.2 % (12.1-15.1)
[2022-01-18 13:40] LABS: White Blood Count 0.8 10^3/uL (4.0-10.0)
[2022-01-18 13:41] LABS: Platelet Count 22 10^3/cmm (130-400)
[2022-01-18 13:42] LABS: Neutrophils # 0.03 10^3/uL (1.8-7.7); Slide Review Slide Review Perform
[2022-01-18 14:26] LABS: Alanine Aminotransferase 14 U/L (0-33); Albumin Level 4.3 g/dL (3.5-5.2); Alkaline Phosphatase 113 U/L (35-105); Aspartate Amino Transferase 21 U/L (0-32); Blood Urea Nitrogen 13 mg/dL (8-23); Calcium 9.3 mg/dL (8.5-10.5); Carbon Dioxide 27 mmol/L (22-29); Chloride 100 mmol/L (98-107); Globulin 2.5 g/dL (1.3-4.6); Glomerular Filtration Rate 49.2 mL/min (90-130); Glucose 141 mg/dL (65-115); Osmolality Calculated 288 mOsm/kg (285-295); Sodium 138 mmol/L (136-145); Total Bilirubin 0.6 mg/dL (0.15-1.2); Total Protein 6.8 g/dL (6.6-8.7)
[2022-01-18 14:27] LABS: Anion Gap 15.1 (5-19); Potassium 4.1 mmol/L (3.5-5.1)
[2022-01-18 14:28] LABS: Lactate Dehydrogenase 208 U/L (135-214)
[2022-01-22 15:56] VITALS: BP 169/84; PULSE 61; RESP 16; TEMP 35.9; O2SAT 99
[2022-01-22 16:17] LABS: Basophils % 0.9 %; Hematocrit 27.9 % (37.0-47.0); Lymphocytes # 0.9 10^3/uL (0.8-4.8); Lymphocytes % 79.1 %; Mean Corpuscular HGB Conc 32.3 g/dL (30.0-36.0); Mean Corpuscular Volume 111.6 fl (81-99); Monocytes # 0.1 10^3/uL (0.2-0.9); Monocytes % 5.2 %; Neutrophils % 12.2 %; Nucleated Red Blood Cells % 0 %; Platelet Count 34 10^3/cmm (130-400); Red Cell Distribution Width 17.1 % (12.1-15.1); White Blood Count 1.2 10^3/uL (4.0-10.0)
[2022-01-22 16:19] LABS: Mean Platelet Volume 11.8 fL (7.4-10.4)
[2022-01-22 16:22] LABS: Neutrophils # 0.14 10^3/uL (1.8-7.7)
[2022-01-22 17:13] LABS: Alanine Aminotransferase 13 U/L (0-33); Albumin Level 4.2 g/dL (3.5-5.2); Alkaline Phosphatase 107 U/L (35-105); Aspartate Amino Transferase 24 U/L (0-32); Blood Urea Nitrogen 9 mg/dL (8-23); Calcium 9.7 mg/dL (8.5-10.5); Carbon Dioxide 28 mmol/L (22-29); Chloride 104 mmol/L (98-107); Globulin 2.5 g/dL (1.3-4.6); Glomerular Filtration Rate 122.3 mL/min (90-130); Glucose 83 mg/dL (65-115); Osmolality Calculated 288 mOsm/kg (285-295); Sodium 140 mmol/L (136-145); Total Bilirubin 0.5 mg/dL (0.15-1.2); Total Protein 6.7 g/dL (6.6-8.7)
[2022-01-22 17:14] LABS: Anion Gap 12.1 (5-19); Potassium 4.1 mmol/L (3.5-5.1)
[2022-01-22 17:15] LABS: Lactate Dehydrogenase 200 U/L (135-214)
== END 2022-01-26 23:59 | disposition home or self-care (01) ==
PROVIDERS: Nurse Practitioner; PCP Internal Medicine; Visit Provider Internal Medicine Medical Oncology
DX: C92.00 Acute myeloblastic leukemia, not having achieved remission (principal)
CPT/HCPCS: 36415; 36430; 36591; 80053; 83615; 85025; 86900; 96372; 96375; 96413; J0894; J2405; J3420; J7050; P9037

== ENCOUNTER 2022-02-26 13:00 | Oncology outpatient (recurring) (ONCR) | payer MEDICARE, SELFPAY ==
[2022-01-29 11:15] LABS: Basophils % 0.4 %; Hematocrit 29.6 % (37.0-47.0); Hemoglobin 9.5 g/dL (11.5-15.3); Lymphocytes # 1.1 10^3/uL (0.8-4.8); Lymphocytes % 41.3 %; Mean Corpuscular HGB Conc 32.1 g/dL (30.0-36.0); Mean Corpuscular Hemoglobin 35.7 pg (28.0-34.0); Mean Corpuscular Volume 111.3 fl (81-99); Monocytes # 0.6 10^3/uL (0.2-0.9); Monocytes % 20.3 %; Neutrophils # 1.02 10^3/uL (1.8-7.7); Neutrophils % 37.6 %; Nucleated Red Blood Cells % 0 %; Platelet Count 32 10^3/cmm (130-400); Red Blood Count 2.66 10^6/uL (4.1-5.3); Red Cell Distribution Width 17.2 % (12.1-15.1); White Blood Count 2.7 10^3/uL (4.0-10.0)
[2022-01-29 11:34] LABS: Alanine Aminotransferase 13 U/L (0-33); Albumin Level 4.3 g/dL (3.5-5.2); Alkaline Phosphatase 101 U/L (35-105); Blood Urea Nitrogen 13 mg/dL (8-23); Calcium 9.4 mg/dL (8.5-10.5); Carbon Dioxide 25 mmol/L (22-29); Chloride 101 mmol/L (98-107); Globulin 2.3 g/dL (1.3-4.6); Glomerular Filtration Rate 122.3 mL/min (90-130); Glucose 96 mg/dL (65-115); Osmolality Calculated 282 mOsm/kg (285-295); Sodium 136 mmol/L (136-145); Total Bilirubin 0.3 mg/dL (0.15-1.2); Total Protein 6.6 g/dL (6.6-8.7)
[2022-01-29 11:35] LABS: Anion Gap 14.6 (5-19); Potassium 4.6 mmol/L (3.5-5.1)
[2022-01-29 11:36] LABS: Aspartate Amino Transferase 22 U/L (0-32)
[2022-02-05] MEDS: cyanocobalamin 1,000 mcg/mL SDV 1000 MCG IM (10:39)
[2022-02-05 10:45] LABS: Hematocrit 29.6 % (37.0-47.0); Hemoglobin 9.5 g/dL (11.5-15.3); Lymphocytes % 29.5 %; Mean Corpuscular HGB Conc 32.1 g/dL (30.0-36.0); Mean Corpuscular Hemoglobin 35.7 pg (28.0-34.0); Mean Corpuscular Volume 111.3 fl (81-99); Monocytes # 0.6 10^3/uL (0.2-0.9); Monocytes % 17.4 %; Neutrophils # 1.69 10^3/uL (1.8-7.7); Neutrophils % 52.5 %; Nucleated Red Blood Cells % 0 %; Platelet Count 31 10^3/cmm (130-400); Red Blood Count 2.66 10^6/uL (4.1-5.3); Red Cell Distribution Width 17.2 % (12.1-15.1); White Blood Count 3.2 10^3/uL (4.0-10.0)
[2022-02-05 11:03] LABS: Alanine Aminotransferase 13 U/L (0-33); Albumin Level 4.2 g/dL (3.5-5.2); Alkaline Phosphatase 104 U/L (35-105); Aspartate Amino Transferase 22 U/L (0-32); Blood Urea Nitrogen 14 mg/dL (8-23); Carbon Dioxide 27 mmol/L (22-29); Chloride 102 mmol/L (98-107); Globulin 2.6 g/dL (1.3-4.6); Glomerular Filtration Rate 122.3 mL/min (90-130); Glucose 100 mg/dL (65-115); Osmolality Calculated 285 mOsm/kg (285-295); Sodium 137 mmol/L (136-145); Total Bilirubin 0.4 mg/dL (0.15-1.2); Total Protein 6.8 g/dL (6.6-8.7)
[2022-02-05 12:27] LABS: Anion Gap 12.5 (5-19); Lactate Dehydrogenase 249 U/L (135-214); Potassium 4.5 mmol/L (3.5-5.1)
[2022-02-12 10:46] VITALS: BP 114/63; PULSE 63; RESP 18; TEMP 36.3; O2SAT 98
[2022-02-12 11:02] LABS: Basophils % 0.2 %; Eosinophils % 0.5 %; Hematocrit 30.6 % (37.0-47.0); Hemoglobin 9.7 g/dL (11.5-15.3); Lymphocytes # 0.9 10^3/uL (0.8-4.8); Lymphocytes % 21.3 %; Mean Corpuscular HGB Conc 31.7 g/dL (30.0-36.0); Mean Corpuscular Hemoglobin 35.7 pg (28.0-34.0); Mean Corpuscular Volume 112.5 fl (81-99); Mean Platelet Volume 11.4 fL (7.4-10.4); Monocytes # 0.4 10^3/uL (0.2-0.9); Monocytes % 9.7 %; Neutrophils # 2.85 10^3/uL (1.8-7.7); Neutrophils % 67.6 %; Nucleated Red Blood Cells % 0 %; Platelet Count 44 10^3/cmm (130-400); Red Blood Count 2.72 10^6/uL (4.1-5.3); Red Cell Distribution Width 17.4 % (12.1-15.1); White Blood Count 4.2 10^3/uL (4.0-10.0)
[2022-02-12 11:26] LABS: Alanine Aminotransferase 20 U/L (0-33); Albumin Level 4.4 g/dL (3.5-5.2); Alkaline Phosphatase 104 U/L (35-105); Aspartate Amino Transferase 29 U/L (0-32); Blood Urea Nitrogen 13 mg/dL (8-23); Calcium 9.4 mg/dL (8.5-10.5); Carbon Dioxide 26 mmol/L (22-29); Chloride 100 mmol/L (98-107); Globulin 2.3 g/dL (1.3-4.6); Glomerular Filtration Rate 99.1 mL/min (90-130); Glucose 169 mg/dL (65-115); Osmolality Calculated 286 mOsm/kg (285-295); Sodium 136 mmol/L (136-145); Total Bilirubin 0.3 mg/dL (0.15-1.2); Total Protein 6.7 g/dL (6.6-8.7)
[2022-02-12 11:28] LABS: Anion Gap 13.9 (5-19); Lactate Dehydrogenase 251 U/L (135-214); Potassium 3.9 mmol/L (3.5-5.1)
[2022-02-19 10:06] LABS: Basophils % 0.2 %; Eosinophils % 0.5 %; Hemoglobin 9.8 g/dL (11.5-15.3); Lymphocytes % 18.4 %; Mean Corpuscular HGB Conc 31.6 g/dL (30.0-36.0); Mean Corpuscular Hemoglobin 35.3 pg (28.0-34.0); Mean Corpuscular Volume 111.5 fl (81-99); Monocytes # 0.7 10^3/uL (0.2-0.9); Monocytes % 12.2 %; Neutrophils # 3.72 10^3/uL (1.8-7.7); Nucleated Red Blood Cells % 0 %; Platelet Count 51 10^3/cmm (130-400); Red Blood Count 2.78 10^6/uL (4.1-5.3); Red Cell Distribution Width 17.2 % (12.1-15.1); White Blood Count 5.5 10^3/uL (4.0-10.0)
[2022-02-19 10:25] LABS: Alanine Aminotransferase 13 U/L (0-33); Albumin Level 4.3 g/dL (3.5-5.2); Alkaline Phosphatase 106 U/L (35-105); Blood Urea Nitrogen 14 mg/dL (8-23); Calcium 9.7 mg/dL (8.5-10.5); Carbon Dioxide 26 mmol/L (22-29); Chloride 102 mmol/L (98-107); Globulin 2.6 g/dL (1.3-4.6); Glomerular Filtration Rate 122.3 mL/min (90-130); Glucose 104 mg/dL (65-115); Osmolality Calculated 289 mOsm/kg (285-295); Sodium 139 mmol/L (136-145); Total Bilirubin 0.3 mg/dL (0.15-1.2); Total Protein 6.9 g/dL (6.6-8.7)
[2022-02-19 10:26] LABS: Anion Gap 15.7 (5-19); Potassium 4.7 mmol/L (3.5-5.1)
[2022-02-19 10:27] LABS: Aspartate Amino Transferase 23 U/L (0-32); Lactate Dehydrogenase 298 U/L (135-214)
[2022-02-19] MEDS: sodium chloride 0.9% 250 ML 75 ML IV (11:19)
[2022-02-19] MEDS: ondansetron 2 mg/ML SDV 2 mL 8 MG IVP (11:20)
[2022-02-19] MEDS: cyanocobalamin 1,000 mcg/mL SDV 1000 MCG IM (12:08)
[2022-02-19 12:34] VITALS: BP 133/64; PULSE 61; RESP 16; TEMP 36.4; O2SAT 96
[2022-02-20 10:49] VITALS: BP 132/71; PULSE 75; RESP 16; TEMP 35.9; O2SAT 97
[2022-02-20] MEDS: sodium chloride 0.9% 250 ML 75 ML IV (10:58)
[2022-02-20] MEDS: ondansetron 2 mg/ML SDV 2 mL 8 MG IVP (10:59)
[2022-02-20 12:20] VITALS: BP 124/64; PULSE 60; RESP 16; TEMP 36.6; O2SAT 97
[2022-02-21 10:06] VITALS: BP 117/51; PULSE 63; RESP 16; TEMP 35.8; O2SAT 97
[2022-02-21] MEDS: sodium chloride 0.9% 250 ML 75 ML IV (10:27)
[2022-02-21] MEDS: ondansetron 2 mg/ML SDV 2 mL 8 MG IVP (10:28)
[2022-02-21 12:08] VITALS: BP 119/62; PULSE 61; RESP 16; TEMP 35.9; O2SAT 96
[2022-02-22] MEDS: ondansetron 2 mg/ML SDV 2 mL 8 MG IVP (11:26)
[2022-02-22] MEDS: sodium chloride 0.9% 250 ML 75 ML IV (11:27)
[2022-02-22 11:44] VITALS: BP 149/66; PULSE 68; RESP 18; TEMP 36.6; O2SAT 98
[2022-02-23] MEDS: sodium chloride 0.9% 250 ML 100 ML IV (10:20)
[2022-02-23] MEDS: ondansetron 2 mg/ML SDV 2 mL 8 MG IVP (10:20)
[2022-02-23 11:46] VITALS: BP 134/62; PULSE 62; O2SAT 99
[2022-02-26 12:50] LABS: Eosinophils % 0.5 %; Hematocrit 29.3 % (37.0-47.0); Hemoglobin 9.4 g/dL (11.5-15.3); Lymphocytes # 0.8 10^3/uL (0.8-4.8); Lymphocytes % 18.9 %; Mean Corpuscular HGB Conc 32.1 g/dL (30.0-36.0); Mean Corpuscular Hemoglobin 35.7 pg (28.0-34.0); Mean Corpuscular Volume 111.4 fl (81-99); Mean Platelet Volume 9.2 fL (7.4-10.4); Monocytes # 0.2 10^3/uL (0.2-0.9); Monocytes % 4.2 %; Neutrophils # 3.25 10^3/uL (1.8-7.7); Neutrophils % 75.9 %; Nucleated Red Blood Cells % 0 %; Platelet Count 30 10^3/cmm (130-400); Red Blood Count 2.63 10^6/uL (4.1-5.3); Red Cell Distribution Width 16.9 % (12.1-15.1); White Blood Count 4.3 10^3/uL (4.0-10.0)
--- NOTE | 2022-02-26 15:38 | PC.NURSE ---
Called patient to let her know about her lab results. Per Dr. Bradshaw her labs were ok. Patient asked if she still needed to be on Levaquin and I asked Dr. Bradshaw's nurse Doris WELLS about it and per Dr. Bradshaw he said no. I did let the patient know that her PLT were are 30 and to watch for any excess bleeding or bruising and to be careful and not cut herself. Patient acknowledged understanding and had no other questions.
== END 2022-02-26 23:59 | disposition home or self-care (01) ==
PROVIDERS: Nurse Practitioner; PCP Internal Medicine; Visit Provider Internal Medicine Medical Oncology
DX: C92.01 Acute myeloblastic leukemia, in remission (principal)
CPT/HCPCS: 36415; 36591; 80053; 83615; 85025; 96367; 96372; 96375; 96413; 99214; J0894; J2405; J3420; J7050

== ENCOUNTER 2022-03-26 12:45 | Oncology outpatient (recurring) (ONCR) | payer MEDICARE, SELFPAY ==
[2022-03-05 12:20] VITALS: BP 139/52; PULSE 68; RESP 16; TEMP 36.2; O2SAT 96
[2022-03-05] MEDS: cyanocobalamin 1,000 mcg/mL SDV 1000 MCG IM (12:23)
[2022-03-05 13:09] LABS: Eosinophils % 0.7 %; Hematocrit 29.7 % (37.0-47.0); Hemoglobin 9.4 g/dL (11.5-15.3); Lymphocytes # 0.9 10^3/uL (0.8-4.8); Lymphocytes % 60.3 %; Mean Corpuscular HGB Conc 31.6 g/dL (30.0-36.0); Mean Corpuscular Hemoglobin 34.9 pg (28.0-34.0); Mean Corpuscular Volume 110.4 fl (81-99); Monocytes # 0.2 10^3/uL (0.2-0.9); Monocytes % 10.6 %; Neutrophils % 28.4 %; Nucleated Red Blood Cells % 0 %; Red Blood Count 2.69 10^6/uL (4.1-5.3); Red Cell Distribution Width 16.9 % (12.1-15.1); White Blood Count 1.4 10^3/uL (4.0-10.0)
[2022-03-05 13:24] LABS: Alanine Aminotransferase 14 U/L (0-33); Albumin Level 4.4 g/dL (3.5-5.2); Alkaline Phosphatase 102 U/L (35-105); Aspartate Amino Transferase 19 U/L (0-32); Blood Urea Nitrogen 16 mg/dL (8-23); Calcium 9.5 mg/dL (8.5-10.5); Carbon Dioxide 26 mmol/L (22-29); Chloride 103 mmol/L (98-107); Globulin 2.4 g/dL (1.3-4.6); Glucose 82 mg/dL (65-115); Osmolality Calculated 288 mOsm/kg (285-295); Sodium 139 mmol/L (136-145); Total Bilirubin 0.4 mg/dL (0.15-1.2); Total Protein 6.8 g/dL (6.6-8.7)
[2022-03-05 13:28] LABS: Anion Gap 14.4 (5-19); Lactate Dehydrogenase 237 U/L (135-214); Potassium 4.4 mmol/L (3.5-5.1)
[2022-03-05 13:34] LABS: Slide Review Slide Review Perform
[2022-03-05 13:36] LABS: Platelet Count 13 10^3/cmm (130-400)
--- NOTE | 2022-03-05 14:03 | PC.NURSE ---
Lab results shown to Dr. Bradshaw and called to pt. PLT 13, WBC 1.4. Pt instructed to come to clinic in a.m. @ 0800 for 1 unit irradiated PLT and to start taking Levaquin 500 mg daily x7 days and that she will need to have her CBC checked on Mondays and . Pt voiced understanding. 1 unit irradiated PLT ordered for 0800 03/06/22/lc
[2022-03-06] MEDS: acetaminophen 325 mg Tablet 650 MG PO (08:11)
[2022-03-06] MEDS: diphenhydrAMINE 25 mg Capsule PO (08:11)
[2022-03-06 08:30] VITALS: BP 139/63; PULSE 51; RESP 18; TEMP 36.6; O2SAT 99
[2022-03-06 08:55] VITALS: BP 150/71; PULSE 51; RESP 18; TEMP 36.6; O2SAT 99
[2022-03-06 08:56] VITALS: BP 150/71; PULSE 78; RESP 18; TEMP 36.8; O2SAT 98
[2022-03-08 09:43] LABS: Hematocrit 27.4 % (37.0-47.0); Hemoglobin 8.7 g/dL (11.5-15.3); Lymphocytes # 0.7 10^3/uL (0.8-4.8); Lymphocytes % 60.2 %; Mean Corpuscular HGB Conc 31.8 g/dL (30.0-36.0); Mean Corpuscular Hemoglobin 35.5 pg (28.0-34.0); Mean Corpuscular Volume 111.8 fl (81-99); Monocytes # 0.1 10^3/uL (0.2-0.9); Monocytes % 5.9 %; Neutrophils % 33.9 %; Nucleated Red Blood Cells % 0 %; Red Blood Count 2.45 10^6/uL (4.1-5.3); Red Cell Distribution Width 17.2 % (12.1-15.1); White Blood Count 1.2 10^3/uL (4.0-10.0)
[2022-03-08 10:16] LABS: Platelet Count 10 10^3/cmm (130-400)
[2022-03-08 15:05] VITALS: BP 122/78; PULSE 78; RESP 18; TEMP 36.6; O2SAT 98
[2022-03-08 15:08] VITALS: BP 129/79; PULSE 69; RESP 18; TEMP 36.6; O2SAT 98
[2022-03-08] MEDS: LORazepam 0.5 mg Tablet PO (15:41)
[2022-03-08] MEDS: diphenhydrAMINE 25 mg Capsule PO (15:45)
[2022-03-08 16:11] VITALS: BP 145/73; PULSE 69; RESP 18; TEMP 36.6; O2SAT 98
[2022-03-08] MEDS: diphenhydrAMINE 50 mg/mL SDV 1mL IVP (16:34)
[2022-03-08 16:35] VITALS: RESP 18; O2SAT 96
[2022-03-08] MEDS: meperidine 50 mg/mL INJ 12.5 MG IVP (16:35)
[2022-03-08] MEDS: sodium chloride 0.9% (100 ml) 100 ML 300 ML (16:37)
[2022-03-08] MEDS: dexamethasone 10 mg/mL INJ IVP (16:37)
--- NOTE | 2022-03-08 17:03 | PC.NURSE ---
Addendum entered by Aga Salinas RN 03/08/22 17:33: patient did return to the infusions suite for the platelets per Dr Quintana orderss.nancy Original Note: patient came in for the lab draw with the port deaccessed with the heather applied. I did instruct her that she should stay close in town to see the results and return if needed for platelet pheresis.nancy
[2022-03-08 17:57] LABS: Add Urine Culture? No; Bacteria Urine TRACE /hpf; Bilirubin Urine Neg (Negative); Blood Urine Trace (Negative); Glucose Urine UA Norm (Normal); Ketones Urine Negative (Negative); Leukocyte Esterase Urine Negative (Negative); Nitrate Urine Negative (Negative); Protein Urine Neg (Negative); RBC Urine 0-4 /hpf (0-2); Squamous Epithelial Cell Urine 0-4 /hpf (0-5); Urine Appearance Clear (CLEAR); Urine Color Yellow (Yellow); Urobilinogen Urine Norm (Negative); WBC Urine 0-4 /hpf (0-5); pH Urine 7 (5-7)
[2022-03-12 10:11] LABS: Hemoglobin 9.6 g/dL (11.5-15.3); Lymphocytes # 0.8 10^3/uL (0.8-4.8); Lymphocytes % 80.4 %; Mean Corpuscular Hemoglobin 35.3 pg (28.0-34.0); Mean Corpuscular Volume 110.3 fl (81-99); Neutrophils % 16.6 %; Nucleated Red Blood Cells % 0 %; Red Blood Count 2.72 10^6/uL (4.1-5.3); Red Cell Distribution Width 17.3 % (12.1-15.1)
[2022-03-12 10:30] LABS: Slide Review Slide Review Perform
[2022-03-12 10:31] LABS: Neutrophils # 0.17 10^3/uL (1.8-7.7); Platelet Count 28 10^3/cmm (130-400)
[2022-03-15 13:32] LABS: Basophils % 0.9 %; Eosinophils % 0.9 %; Hematocrit 30.6 % (37.0-47.0); Hemoglobin 9.9 g/dL (11.5-15.3); Lymphocytes % 83.8 %; Mean Corpuscular HGB Conc 32.4 g/dL (30.0-36.0); Mean Corpuscular Hemoglobin 35.7 pg (28.0-34.0); Mean Corpuscular Volume 110.5 fl (81-99); Mean Platelet Volume 9.6 fL (7.4-10.4); Monocytes % 3.4 %; Nucleated Red Blood Cells % 0 %; Platelet Count 42 10^3/cmm (130-400); Red Blood Count 2.77 10^6/uL (4.1-5.3); Red Cell Distribution Width 17.1 % (12.1-15.1); White Blood Count 1.2 10^3/uL (4.0-10.0)
[2022-03-15 13:48] LABS: Neutrophils # 0.13 10^3/uL (1.8-7.7)
--- NOTE | 2022-03-15 16:19 | PC.NURSE ---
Patient had labs drawn at the [facility] with the results reviewed by Dr Bradshaw with labs to be drawn on Saturday. She was notified and also to continue her Levoflaxcin.mm
[2022-03-19] MEDS: cyanocobalamin 1,000 mcg/mL SDV 1000 MCG IM (13:46)
[2022-03-19 13:56] LABS: Basophils % 0.7 %; Eosinophils % 0.7 %; Hematocrit 30.7 % (37.0-47.0); Hemoglobin 9.7 g/dL (11.5-15.3); Lymphocytes # 0.9 10^3/uL (0.8-4.8); Lymphocytes % 60.8 %; Mean Corpuscular HGB Conc 31.6 g/dL (30.0-36.0); Mean Corpuscular Hemoglobin 35.3 pg (28.0-34.0); Mean Corpuscular Volume 111.6 fl (81-99); Mean Platelet Volume 10.5 fL (7.4-10.4); Monocytes # 0.2 10^3/uL (0.2-0.9); Monocytes % 11.1 %; Neutrophils % 26.7 %; Nucleated Red Blood Cells % 0 %; Platelet Count 71 10^3/cmm (130-400); Red Blood Count 2.75 10^6/uL (4.1-5.3); White Blood Count 1.5 10^3/uL (4.0-10.0)
[2022-03-19 14:10] LABS: Neutrophils # 0.41 10^3/uL (1.8-7.7)
[2022-03-19 14:11] LABS: Slide Review Slide Review Perform
[2022-03-21 13:23] LABS: Basophils % 0.5 %; Eosinophils % 0.5 %; Hematocrit 30.3 % (37.0-47.0); Hemoglobin 9.7 g/dL (11.5-15.3); Lymphocytes # 1.1 10^3/uL (0.8-4.8); Lymphocytes % 52.6 %; Mean Corpuscular Hemoglobin 35.5 pg (28.0-34.0); Mean Platelet Volume 11.4 fL (7.4-10.4); Monocytes # 0.3 10^3/uL (0.2-0.9); Monocytes % 13.9 %; Neutrophils % 31.5 %; Nucleated Red Blood Cells % 0 %; Platelet Count 72 10^3/cmm (130-400); Red Blood Count 2.73 10^6/uL (4.1-5.3); Red Cell Distribution Width 16.7 % (12.1-15.1); White Blood Count 2.1 10^3/uL (4.0-10.0)
[2022-03-21 13:24] LABS: Neutrophils # 0.66 10^3/uL (1.8-7.7)
[2022-03-26 13:00] VITALS: BP 143/67; PULSE 71; RESP 18; TEMP 36.4; O2SAT 96
[2022-03-26 13:26] LABS: Basophils % 0.4 %; Eosinophils % 0.4 %; Hematocrit 31.4 % (37.0-47.0); Lymphocytes % 37.9 %; Mean Corpuscular HGB Conc 31.8 g/dL (30.0-36.0); Mean Corpuscular Hemoglobin 35.5 pg (28.0-34.0); Mean Corpuscular Volume 111.3 fl (81-99); Mean Platelet Volume 9.9 fL (7.4-10.4); Monocytes # 0.4 10^3/uL (0.2-0.9); Monocytes % 13.3 %; Neutrophils # 1.26 10^3/uL (1.8-7.7); Neutrophils % 47.6 %; Nucleated Red Blood Cells % 0 %; Platelet Count 45 10^3/cmm (130-400); Red Blood Count 2.82 10^6/uL (4.1-5.3); Red Cell Distribution Width 16.6 % (12.1-15.1); White Blood Count 2.6 10^3/uL (4.0-10.0)
== END 2022-03-28 23:59 | disposition home or self-care (01) ==
PROVIDERS: PCP Internal Medicine; Visit Provider Internal Medicine Medical Oncology
DX: C92.00 Acute myeloblastic leukemia, not having achieved remission (principal)
CPT/HCPCS: 36415; 36430; 36591; 80053; 80503; 81001; 83615; 85025; 86850; 86900; 96372; 96374; 96375; 96402; J1100; J1200; J2175; J3420; P9037; P9040

== ENCOUNTER → 2022-04-16 08:47 | Outpatient (BNVA) | payer MEDICARE, MEDICAID, SELFPAY | PROVIDERS: PCP Internal Medicine; Visit Provider Internal Medicine Medical Oncology | DX: C92.01 Acute myeloblastic leukemia, in remission (principal) | CPT/HCPCS: 99214 ==

== ENCOUNTER 2022-04-26 09:30 | Oncology outpatient (recurring) (ONCR) | payer MEDICARE, SELFPAY ==
[2022-03-29 13:05] LABS: Eosinophils % 0.3 %; Hematocrit 32.4 % (37.0-47.0); Hemoglobin 10.3 g/dL (11.5-15.3); Lymphocytes # 1.2 10^3/uL (0.8-4.8); Lymphocytes % 36.4 %; Mean Corpuscular HGB Conc 31.8 g/dL (30.0-36.0); Mean Corpuscular Hemoglobin 35.3 pg (28.0-34.0); Monocytes # 0.4 10^3/uL (0.2-0.9); Monocytes % 12.5 %; Neutrophils # 1.65 10^3/uL (1.8-7.7); Neutrophils % 50.5 %; Nucleated Red Blood Cells % 0 %; Platelet Count 38 10^3/cmm (130-400); Red Blood Count 2.92 10^6/uL (4.1-5.3); Red Cell Distribution Width 16.6 % (12.1-15.1); White Blood Count 3.3 10^3/uL (4.0-10.0)
[2022-03-29 13:59] LABS: Slide Review Slide Review Perform
[2022-04-02] MEDS: cyanocobalamin 1,000 mcg/mL SDV 1000 MCG IM (12:28)
[2022-04-02 12:42] LABS: Eosinophils % 0.5 %; Hematocrit 30.7 % (37.0-47.0); Hemoglobin 9.8 g/dL (11.5-15.3); Lymphocytes # 1.1 10^3/uL (0.8-4.8); Lymphocytes % 26.8 %; Mean Corpuscular HGB Conc 31.9 g/dL (30.0-36.0); Mean Corpuscular Hemoglobin 35.5 pg (28.0-34.0); Mean Corpuscular Volume 111.2 fl (81-99); Monocytes # 0.7 10^3/uL (0.2-0.9); Monocytes % 16.4 %; Neutrophils # 2.21 10^3/uL (1.8-7.7); Neutrophils % 55.8 %; Nucleated Red Blood Cells % 0 %; Red Blood Count 2.76 10^6/uL (4.1-5.3); Red Cell Distribution Width 16.5 % (12.1-15.1)
[2022-04-02 12:48] LABS: Slide Review Slide Review Perform
[2022-04-02 12:49] LABS: Platelet Count 28 10^3/cmm (130-400)
--- NOTE | 2022-04-02 14:49 | PC.NURSE ---
Dr. Bradshaw reviewed patient's lab work. Patient's Plt is 28. Per Dr. Bradshaw that if she starts bleeding to call our office. This nurse called the patient and reviewed her lab results. I let her know that per Dr. Bradshaw that if she starts bleeding to call our office. Patients acknowledged understanding. Patient to return on for another lab draw. Patient asked if we could get the information on her last Plt transfusion as she had a reaction. She needs it for her doctor in [place]. This nurse let the patient know that I will see what I find out. Patient had no other questions.
[2022-04-05 10:41] LABS: Eosinophils % 0.4 %; Hematocrit 30.8 % (37.0-47.0); Hemoglobin 9.9 g/dL (11.5-15.3); Lymphocytes # 1.1 10^3/uL (0.8-4.8); Lymphocytes % 22.7 %; Mean Corpuscular HGB Conc 32.1 g/dL (30.0-36.0); Mean Corpuscular Hemoglobin 35.1 pg (28.0-34.0); Mean Corpuscular Volume 109.2 fl (81-99); Monocytes # 0.7 10^3/uL (0.2-0.9); Monocytes % 15.2 %; Neutrophils # 2.82 10^3/uL (1.8-7.7); Neutrophils % 61.1 %; Nucleated Red Blood Cells % 0 %; Platelet Count 33 10^3/cmm (130-400); Positive M 1; Red Blood Count 2.82 10^6/uL (4.1-5.3); Red Cell Distribution Width 16.5 % (12.1-15.1); White Blood Count 4.6 10^3/uL (4.0-10.0)
[2022-04-09 13:36] LABS: Basophils % 0.2 %; Eosinophils % 0.4 %; Hematocrit 31.8 % (37.0-47.0); Hemoglobin 10.4 g/dL (11.5-15.3); Lymphocytes # 1.1 10^3/uL (0.8-4.8); Lymphocytes % 20.7 %; Mean Corpuscular HGB Conc 32.7 g/dL (30.0-36.0); Mean Corpuscular Hemoglobin 34.3 pg (28.0-34.0); Monocytes # 0.7 10^3/uL (0.2-0.9); Monocytes % 13.7 %; Neutrophils # 3.49 10^3/uL (1.8-7.7); Neutrophils % 64.3 %; Nucleated Red Blood Cells % 0 %; Platelet Count 34 10^3/cmm (130-400); Red Blood Count 3.03 10^6/uL (4.1-5.3); Red Cell Distribution Width 16.5 % (12.1-15.1); White Blood Count 5.4 10^3/uL (4.0-10.0)
[2022-04-09 14:01] LABS: Alanine Aminotransferase 20 U/L (0-33); Albumin Level 4.8 g/dL (3.5-5.2); Alkaline Phosphatase 108 U/L (35-105); Blood Urea Nitrogen 11 mg/dL (8-23); Calcium 9.5 mg/dL (8.5-10.5); Carbon Dioxide 25 mmol/L (22-29); Chloride 99 mmol/L (98-107); Globulin 1.4 g/dL (1.3-4.6); Glucose 114 mg/dL (65-115); Osmolality Calculated 278 mOsm/kg (285-295); Sodium 134 mmol/L (136-145); Total Bilirubin 0.5 mg/dL (0.15-1.2); Total Protein 6.2 g/dL (6.6-8.7)
[2022-04-09 14:09] LABS: Anion Gap 14.2 (5-19); Potassium 4.2 mmol/L (3.5-5.1)
[2022-04-09 14:10] LABS: Aspartate Amino Transferase 30 U/L (0-32); Lactate Dehydrogenase 274 U/L (135-214)
[2022-04-16 09:37] LABS: Basophils % 0.2 %; Eosinophils % 0.8 %; Hematocrit 31.7 % (37.0-47.0); Hemoglobin 9.8 g/dL (11.5-15.3); Lymphocytes # 0.8 10^3/uL (0.8-4.8); Lymphocytes % 16.4 %; Mean Corpuscular HGB Conc 30.9 g/dL (30.0-36.0); Mean Corpuscular Volume 110.1 fl (81-99); Monocytes # 0.6 10^3/uL (0.2-0.9); Monocytes % 12.5 %; Neutrophils % 69.7 %; Nucleated Red Blood Cells % 0 %; Platelet Count 52 10^3/cmm (130-400); Red Blood Count 2.88 10^6/uL (4.1-5.3); Red Cell Distribution Width 16.3 % (12.1-15.1); White Blood Count 4.9 10^3/uL (4.0-10.0)
[2022-04-16 09:49] LABS: Alanine Aminotransferase 14 U/L (0-33); Albumin Level 4.1 g/dL (3.5-5.2); Alkaline Phosphatase 99 U/L (35-105); Blood Urea Nitrogen 12 mg/dL (8-23); Calcium 9.4 mg/dL (8.5-10.5); Carbon Dioxide 25 mmol/L (22-29); Chloride 104 mmol/L (98-107); Globulin 2.3 g/dL (1.3-4.6); Glucose 100 mg/dL (65-115); Osmolality Calculated 290 mOsm/kg (285-295); Sodium 140 mmol/L (136-145); Total Bilirubin 0.4 mg/dL (0.15-1.2); Total Protein 6.4 g/dL (6.6-8.7)
[2022-04-16 09:55] LABS: Anion Gap 15.2 (5-19); Aspartate Amino Transferase 26 U/L (0-32); Potassium 4.2 mmol/L (3.5-5.1)
[2022-04-16] MEDS: sodium chloride 0.9% 250 ML 75 ML IV (11:41)
[2022-04-16] MEDS: ondansetron 2 mg/ML SDV 2 mL 8 MG IVP (11:41)
[2022-04-16 13:07] VITALS: BP 152/72; PULSE 58; RESP 18; TEMP 36.4; O2SAT 97
[2022-04-17 12:47] VITALS: BP 118/71; PULSE 60; RESP 16; TEMP 36.4; O2SAT 98
[2022-04-17] MEDS: ondansetron 2 mg/ML SDV 2 mL 8 MG IVP (12:54)
[2022-04-17] MEDS: sodium chloride 0.9% 250 ML 75 ML IV (12:54)
[2022-04-17 14:21] VITALS: BP 139/63; PULSE 57; RESP 16; TEMP 36.6; O2SAT 100
[2022-04-18 13:12] VITALS: BP 129/61; PULSE 63; RESP 16; TEMP 36; O2SAT 97
[2022-04-18] MEDS: ondansetron 2 mg/ML SDV 2 mL 8 MG IVP (13:22)
[2022-04-18] MEDS: sodium chloride 0.9% 250 ML 75 ML IV (13:22)
[2022-04-18 14:57] VITALS: BP 125/70; PULSE 59; RESP 16; TEMP 36.9; O2SAT 97
[2022-04-19] MEDS: sodium chloride 0.9% 250 ML 75 ML IV (09:27)
[2022-04-19] MEDS: ondansetron 2 mg/ML SDV 2 mL 8 MG IVP (09:27)
[2022-04-19 09:39] LABS: Basophils % 0.2 %; Eosinophils % 0.5 %; Hematocrit 31.6 % (37.0-47.0); Lymphocytes # 0.9 10^3/uL (0.8-4.8); Lymphocytes % 20.7 %; Mean Corpuscular HGB Conc 31.6 g/dL (30.0-36.0); Mean Corpuscular Hemoglobin 34.4 pg (28.0-34.0); Mean Corpuscular Volume 108.6 fl (81-99); Mean Platelet Volume 10.2 fL (7.4-10.4); Monocytes # 0.4 10^3/uL (0.2-0.9); Monocytes % 10.1 %; Neutrophils # 2.95 10^3/uL (1.8-7.7); Nucleated Red Blood Cells % 0 %; Platelet Count 50 10^3/cmm (130-400); Red Blood Count 2.91 10^6/uL (4.1-5.3); White Blood Count 4.3 10^3/uL (4.0-10.0)
[2022-04-19 10:41] VITALS: BP 149/74; PULSE 54; TEMP 36.9
[2022-04-24 13:55] LABS: Eosinophils % 0.3 %; Hematocrit 30.1 % (37.0-47.0); Hemoglobin 9.6 g/dL (11.5-15.3); Lymphocytes # 0.7 10^3/uL (0.8-4.8); Lymphocytes % 20.9 %; Mean Corpuscular HGB Conc 31.9 g/dL (30.0-36.0); Mean Corpuscular Hemoglobin 34.5 pg (28.0-34.0); Mean Corpuscular Volume 108.3 fl (81-99); Mean Platelet Volume 9.6 fL (7.4-10.4); Monocytes # 0.3 10^3/uL (0.2-0.9); Monocytes % 7.8 %; Neutrophils # 2.42 10^3/uL (1.8-7.7); Neutrophils % 70.4 %; Nucleated Red Blood Cells % 0 %; Red Blood Count 2.78 10^6/uL (4.1-5.3); Red Cell Distribution Width 15.9 % (12.1-15.1); White Blood Count 3.4 10^3/uL (4.0-10.0)
[2022-04-24 14:03] LABS: Platelet Count 27 10^3/cmm (130-400); Slide Review Slide Review Perform
[2022-04-24] MEDS: cyanocobalamin 1,000 mcg/mL SDV 1000 MCG IM (16:03)
[2022-04-26 09:45] LABS: Eosinophils % 0.5 %; Hematocrit 28.9 % (37.0-47.0); Hemoglobin 9.4 g/dL (11.5-15.3); Lymphocytes # 0.8 10^3/uL (0.8-4.8); Lymphocytes % 38.3 %; Mean Corpuscular HGB Conc 32.5 g/dL (30.0-36.0); Mean Corpuscular Hemoglobin 34.8 pg (28.0-34.0); Monocytes # 0.2 10^3/uL (0.2-0.9); Monocytes % 9.2 %; Neutrophils # 1.06 10^3/uL (1.8-7.7); Neutrophils % 51.5 %; Nucleated Red Blood Cells % 0 %; White Blood Count 2.1 10^3/uL (4.0-10.0)
[2022-04-26 10:28] LABS: Slide Review Slide Review Perform
[2022-04-26 10:29] LABS: Platelet Count 25 10^3/cmm (130-400)
== END 2022-04-28 23:59 | disposition home or self-care (01) ==
PROVIDERS: PCP Internal Medicine; Visit Provider Internal Medicine Medical Oncology
DX: C92.00 Acute myeloblastic leukemia, not having achieved remission
CPT/HCPCS: 36591; 80053; 83615; 85025; 86850; 86900; 96372; 96375; 96413; J0894; J2405; J3420; J7050

== ENCOUNTER 2022-05-24 13:30 | Oncology outpatient (recurring) (ONCR) | payer MEDICARE, SELFPAY ==
[2022-05-01 13:01] LABS: Hematocrit 32.3 % (37.0-47.0); Hemoglobin 10.3 g/dL (11.5-15.3); Lymphocytes # 0.8 10^3/uL (0.8-4.8); Lymphocytes % 53.3 %; Mean Corpuscular HGB Conc 31.9 g/dL (30.0-36.0); Mean Corpuscular Hemoglobin 34.6 pg (28.0-34.0); Mean Corpuscular Volume 108.4 fl (81-99); Monocytes # 0.2 10^3/uL (0.2-0.9); Nucleated Red Blood Cells % 0 %; Red Blood Count 2.98 10^6/uL (4.1-5.3); Red Cell Distribution Width 16.4 % (12.1-15.1); White Blood Count 1.5 10^3/uL (4.0-10.0)
[2022-05-01 13:46] LABS: Slide Review Slide Review Perform
[2022-05-01 13:47] LABS: Neutrophils # 0.51 10^3/uL (1.8-7.7); Platelet Count 15 10^3/cmm (130-400)
[2022-05-02] MEDS: diphenhydrAMINE 25 mg Capsule PO (08:34)
[2022-05-02] MEDS: acetaminophen 325 mg Tablet 650 MG PO (08:34)
[2022-05-02] MEDS: hydrocortisone 100 mg/2 mL SDV IVP ×2 (08:34→09:15)
[2022-05-02 09:40] VITALS: BP 145/63; PULSE 55; RESP 18; TEMP 36.6; O2SAT 97
[2022-05-02 10:05] VITALS: BP 141/67; PULSE 59; RESP 18; TEMP 36.8; O2SAT 98
[2022-05-03 08:28] LABS: Hematocrit 30.1 % (37.0-47.0); Hemoglobin 9.5 g/dL (11.5-15.3); Lymphocytes # 0.7 10^3/uL (0.8-4.8); Mean Corpuscular HGB Conc 31.6 g/dL (30.0-36.0); Mean Corpuscular Hemoglobin 34.2 pg (28.0-34.0); Mean Corpuscular Volume 108.3 fl (81-99); Mean Platelet Volume 11.9 fL (7.4-10.4); Monocytes # 0.1 10^3/uL (0.2-0.9); Monocytes % 7.4 %; Neutrophils % 43.6 %; Nucleated Red Blood Cells % 0 %; Platelet Count 48 10^3/cmm (130-400); Red Blood Count 2.78 10^6/uL (4.1-5.3); Red Cell Distribution Width 16.5 % (12.1-15.1); White Blood Count 1.5 10^3/uL (4.0-10.0)
[2022-05-03 08:37] LABS: Neutrophils # 0.65 10^3/uL (1.8-7.7)
[2022-05-07 10:07] LABS: Basophils % 0.9 %; Hematocrit 33.4 % (37.0-47.0); Hemoglobin 10.5 g/dL (11.5-15.3); Lymphocytes # 0.8 10^3/uL (0.8-4.8); Lymphocytes % 65.8 %; Mean Corpuscular HGB Conc 31.4 g/dL (30.0-36.0); Mean Corpuscular Volume 108.1 fl (81-99); Mean Platelet Volume 9.7 fL (7.4-10.4); Monocytes % 3.4 %; Neutrophils % 29.9 %; Nucleated Red Blood Cells % 0 %; Platelet Count 36 10^3/cmm (130-400); Red Blood Count 3.09 10^6/uL (4.1-5.3); Red Cell Distribution Width 16.5 % (12.1-15.1); White Blood Count 1.2 10^3/uL (4.0-10.0)
[2022-05-07 10:08] LABS: Neutrophils # 0.35 10^3/uL (1.8-7.7)
[2022-05-07] MEDS: cyanocobalamin 1,000 mcg/mL SDV 1000 MCG IM (10:12)
--- NOTE | 2022-05-07 16:08 | PC.NURSE ---
Labs reviewed by Dr. Bradshaw. Patient to continue Levaquin because of ANC was 0.35. Patient PLT is 36 and HGB at 10.5. Patient to continue Levaquin. Patient concerned about her ANC 0.35 and I let her know that if she needs to make sure she washes her hands, wears a mask if she goes out in public and stay away from any sick people. This nurse also reminded the patient that if she starts running a fever of 100.4 then she needs to go to the ER if it is after hours or call and talk to Dr. Bradshaw's nurse during clinic hours to see what Dr. Bradshaw would want her to do. Patient acknowledged understanding and had no other questions.
[2022-05-10 09:49] LABS: Basophils % 1.5 %; Hematocrit 34.3 % (37.0-47.0); Hemoglobin 10.9 g/dL (11.5-15.3); Lymphocytes # 0.9 10^3/uL (0.8-4.8); Lymphocytes % 66.9 %; Mean Corpuscular HGB Conc 31.8 g/dL (30.0-36.0); Mean Corpuscular Hemoglobin 34.4 pg (28.0-34.0); Mean Corpuscular Volume 108.2 fl (81-99); Mean Platelet Volume 10.8 fL (7.4-10.4); Monocytes # 0.1 10^3/uL (0.2-0.9); Neutrophils % 25.6 %; Nucleated Red Blood Cells % 0 %; Platelet Count 54 10^3/cmm (130-400); Red Blood Count 3.17 10^6/uL (4.1-5.3); Red Cell Distribution Width 16.5 % (12.1-15.1); White Blood Count 1.3 10^3/uL (4.0-10.0)
[2022-05-10 10:20] LABS: Neutrophils # 0.34 10^3/uL (1.8-7.7)
[2022-05-10 10:21] LABS: Slide Review Slide Review Perform
[2022-05-14 13:11] LABS: Basophils % 0.5 %; Eosinophils % 0.5 %; Hematocrit 33.8 % (37.0-47.0); Hemoglobin 10.7 g/dL (11.5-15.3); Lymphocytes % 49.7 %; Mean Corpuscular HGB Conc 31.7 g/dL (30.0-36.0); Mean Corpuscular Hemoglobin 33.5 pg (28.0-34.0); Mean Platelet Volume 12.4 fL (7.4-10.4); Monocytes # 0.3 10^3/uL (0.2-0.9); Monocytes % 16.2 %; Neutrophils % 32.6 %; Nucleated Red Blood Cells % 0 %; Platelet Count 89 10^3/cmm (130-400); Red Blood Count 3.19 10^6/uL (4.1-5.3); Red Cell Distribution Width 16.4 % (12.1-15.1)
[2022-05-14 13:16] LABS: Neutrophils # 0.64 10^3/uL (1.8-7.7)
--- NOTE | 2022-05-14 14:21 | PC.NURSE ---
Dr. Bradshaw reviewed this patient's labs and he let this nurse know that she can stop her Levaquin. This nurse called and spoke to this patient and I let her know what her CBC lab values were and also let her know t that per Dr. Bradshaw that she can stop her Levaquin. Patient acknowledged understanding and had no other questions.
[2022-05-17 13:25] LABS: Basophils % 0.4 %; Hematocrit 33.3 % (37.0-47.0); Hemoglobin 10.7 g/dL (11.5-15.3); Lymphocytes % 40.4 %; Mean Corpuscular HGB Conc 32.1 g/dL (30.0-36.0); Mean Corpuscular Hemoglobin 33.8 pg (28.0-34.0); Mean Platelet Volume 9.5 fL (7.4-10.4); Monocytes # 0.4 10^3/uL (0.2-0.9); Neutrophils % 41.3 %; Nucleated Red Blood Cells % 0 %; Platelet Count 60 10^3/cmm (130-400); Red Blood Count 3.17 10^6/uL (4.1-5.3); Red Cell Distribution Width 16.2 % (12.1-15.1); White Blood Count 2.4 10^3/uL (4.0-10.0)
[2022-05-17 13:38] LABS: Neutrophils # 0.97 10^3/uL (1.8-7.7); Slide Review Slide Review Perform
--- NOTE | 2022-05-17 14:28 | PC.NURSE ---
Lab results shown to Dr. Bradshaw and reviewed with pt via telephone. ANC 984. Informed pt to stop antibiotics and to cont neutropenic precautions, reviewed appts. Pt voiced understanding/lc
[2022-05-21 13:07] VITALS: BP 148/75; PULSE 67; RESP 18; TEMP 36.3; O2SAT 97
[2022-05-21 13:31] LABS: Basophils % 0.3 %; Hematocrit 33.3 % (37.0-47.0); Hemoglobin 10.5 g/dL (11.5-15.3); Lymphocytes # 1.2 10^3/uL (0.8-4.8); Mean Corpuscular HGB Conc 31.5 g/dL (30.0-36.0); Mean Corpuscular Hemoglobin 33.3 pg (28.0-34.0); Mean Corpuscular Volume 105.7 fl (81-99); Monocytes # 0.6 10^3/uL (0.2-0.9); Monocytes % 15.7 %; Neutrophils # 1.77 10^3/uL (1.8-7.7); Neutrophils % 50.4 %; Nucleated Red Blood Cells % 0 %; Platelet Count 50 10^3/cmm (130-400); Red Blood Count 3.15 10^6/uL (4.1-5.3); Red Cell Distribution Width 16.1 % (12.1-15.1); White Blood Count 3.5 10^3/uL (4.0-10.0)
[2022-05-21 13:57] LABS: Add Urine Microscopic? YES; Bilirubin Urine 1+ (Negative); Blood Urine Neg (Negative); Glucose Urine UA Norm (Normal); Ketones Urine 1+ (Negative); Leukocyte Esterase Urine Negative (Negative); Nitrate Urine Negative (Negative); Protein Urine Trace (Negative); Urine Appearance Clear (CLEAR); Urine Color Dark Yellow (Yellow); Urobilinogen Urine 1 mg/dL (Negative); pH Urine 5 (5-7)
[2022-05-21 13:58] LABS: Add Urine Culture? No; Bacteria Urine TRACE /hpf; Mucus Urine 3+ /hpf; RBC Urine 0-4 /hpf (0-2); Squamous Epithelial Cell Urine 0-4 /hpf (0-5); WBC Urine 0-4 /hpf (0-5)
== END 2022-05-29 23:59 | disposition home or self-care (01) ==
PROVIDERS: PCP Internal Medicine; Visit Provider Internal Medicine Medical Oncology
DX: C92.00 Acute myeloblastic leukemia, not having achieved remission
CPT/HCPCS: 36415; 36430; 36591; 81001; 85025; 86850; 86900; 96372; 96375; 96401; J1720; J3420; P9040

== ENCOUNTER → 2022-06-11 09:17 | Outpatient (BNVA) | payer MEDICAID, MEDICARE, SELFPAY | PROVIDERS: PCP Internal Medicine; Visit Provider Nurse Practitioner | DX: C92.01 Acute myeloblastic leukemia, in remission (principal) | CPT/HCPCS: 99214 ==

== ENCOUNTER 2022-06-25 13:00 | Oncology outpatient (recurring) (ONCR) | payer MEDICARE, SELFPAY ==
[2022-05-30 14:48] LABS: Basophils % 0.2 %; Eosinophils % 0.4 %; Hematocrit 34.3 % (37.0-47.0); Hemoglobin 10.9 g/dL (11.5-15.3); Lymphocytes # 1.2 10^3/uL (0.8-4.8); Lymphocytes % 27.6 %; Mean Corpuscular HGB Conc 31.8 g/dL (30.0-36.0); Mean Corpuscular Hemoglobin 32.9 pg (28.0-34.0); Mean Corpuscular Volume 103.6 fl (81-99); Monocytes # 0.7 10^3/uL (0.2-0.9); Neutrophils # 2.48 10^3/uL (1.8-7.7); Neutrophils % 55.4 %; Nucleated Red Blood Cells % 0 %; Platelet Count 43 10^3/cmm (130-400); Positive M 1; Red Blood Count 3.31 10^6/uL (4.1-5.3); White Blood Count 4.5 10^3/uL (4.0-10.0)
--- NOTE | 2022-05-30 15:24 | PC.NURSE ---
Dr. Bradshaw not here to review her labs but her HgB is at 10.9 and Plt are at 43 and WBC is 4.5. Patient called with her lab results. Patient acknowledged lab results. Patient wanted to then talk to [place] about her oral chemo and this nurse transferred the call to Radha.
[2022-06-04] MEDS: cyanocobalamin 1,000 mcg/mL SDV 1000 MCG IM (09:16)
[2022-06-04 09:23] LABS: Basophils % 0.2 %; Eosinophils % 0.7 %; Hemoglobin 10.9 g/dL (11.5-15.3); Lymphocytes # 0.9 10^3/uL (0.8-4.8); Lymphocytes % 21.9 %; Mean Corpuscular HGB Conc 31.1 g/dL (30.0-36.0); Mean Corpuscular Hemoglobin 33.5 pg (28.0-34.0); Mean Corpuscular Volume 107.7 fl (81-99); Monocytes # 0.5 10^3/uL (0.2-0.9); Monocytes % 13.1 %; Neutrophils % 63.4 %; Nucleated Red Blood Cells % 0 %; Platelet Count 36 10^3/cmm (130-400); Red Blood Count 3.25 10^6/uL (4.1-5.3); Red Cell Distribution Width 16.5 % (12.1-15.1); White Blood Count 4.1 10^3/uL (4.0-10.0)
[2022-06-04 10:45] LABS: Slide Review Slide Review Perform
[2022-06-11 09:46] LABS: Basophils % 0.2 %; Eosinophils % 0.9 %; Hemoglobin 10.3 g/dL (11.5-15.3); Lymphocytes # 0.9 10^3/uL (0.8-4.8); Lymphocytes % 21.1 %; Mean Corpuscular HGB Conc 32.2 g/dL (30.0-36.0); Mean Corpuscular Hemoglobin 33.8 pg (28.0-34.0); Mean Corpuscular Volume 104.9 fl (81-99); Monocytes # 0.7 10^3/uL (0.2-0.9); Monocytes % 14.7 %; Neutrophils # 2.74 10^3/uL (1.8-7.7); Neutrophils % 62.2 %; Nucleated Red Blood Cells % 0 %; Platelet Count 39 10^3/cmm (130-400); Red Blood Count 3.05 10^6/uL (4.1-5.3); Red Cell Distribution Width 16.9 % (12.1-15.1); White Blood Count 4.4 10^3/uL (4.0-10.0)
[2022-06-11 09:50] LABS: Mean Platelet Volume 10.5 fL (7.4-10.4)
[2022-06-11 10:07] LABS: Alanine Aminotransferase 18 U/L (0-33); Albumin Level 4.4 g/dL (3.5-5.2); Alkaline Phosphatase 106 U/L (35-105); Blood Urea Nitrogen 9 mg/dL (8-23); Carbon Dioxide 25 mmol/L (22-29); Chloride 103 mmol/L (98-107); Globulin 2.1 g/dL (1.3-4.6); Glucose 98 mg/dL (65-115); Osmolality Calculated 285 mOsm/kg (285-295); Sodium 138 mmol/L (136-145); Total Bilirubin 0.4 mg/dL (0.15-1.2); Total Protein 6.5 g/dL (6.6-8.7)
[2022-06-11 10:15] LABS: Anion Gap 14.1 (5-19); Aspartate Amino Transferase 28 U/L (0-32); Lactate Dehydrogenase 315 U/L (135-214); Potassium 4.1 mmol/L (3.5-5.1)
[2022-06-14 14:30] LABS: Basophils % 0.2 %; Eosinophils % 0.6 %; Hematocrit 34.2 % (37.0-47.0); Hemoglobin 10.7 g/dL (11.5-15.3); Lymphocytes % 20.7 %; Mean Corpuscular HGB Conc 31.3 g/dL (30.0-36.0); Mean Corpuscular Hemoglobin 33.2 pg (28.0-34.0); Mean Corpuscular Volume 106.2 fl (81-99); Mean Platelet Volume 9.7 fL (7.4-10.4); Monocytes # 0.6 10^3/uL (0.2-0.9); Monocytes % 12.2 %; Neutrophils # 3.08 10^3/uL (1.8-7.7); Neutrophils % 65.7 %; Nucleated Red Blood Cells % 0 %; Platelet Count 43 10^3/cmm (130-400); Red Blood Count 3.22 10^6/uL (4.1-5.3); Red Cell Distribution Width 17.1 % (12.1-15.1); White Blood Count 4.7 10^3/uL (4.0-10.0)
[2022-06-14 15:17] LABS: Slide Review Slide Review Perform
[2022-06-18 09:42] VITALS: BP 151/73; PULSE 66; RESP 18; TEMP 36.2; O2SAT 96
[2022-06-18 09:57] LABS: Basophils % 0.2 %; Eosinophils % 0.6 %; Hematocrit 34.5 % (37.0-47.0); Hemoglobin 11.1 g/dL (11.5-15.3); Lymphocytes # 1.2 10^3/uL (0.8-4.8); Lymphocytes % 19.1 %; Mean Corpuscular HGB Conc 32.2 g/dL (30.0-36.0); Mean Corpuscular Hemoglobin 33.5 pg (28.0-34.0); Mean Corpuscular Volume 104.2 fl (81-99); Mean Platelet Volume 10.8 fL (7.4-10.4); Monocytes # 0.8 10^3/uL (0.2-0.9); Neutrophils # 4.25 10^3/uL (1.8-7.7); Neutrophils % 66.6 %; Nucleated Red Blood Cells % 0 %; Platelet Count 58 10^3/cmm (130-400); Red Blood Count 3.31 10^6/uL (4.1-5.3); Red Cell Distribution Width 16.8 % (12.1-15.1); White Blood Count 6.4 10^3/uL (4.0-10.0)
[2022-06-18 10:15] LABS: Alanine Aminotransferase 18 U/L (0-33); Albumin Level 4.2 g/dL (3.5-5.2); Alkaline Phosphatase 117 U/L (35-105); Blood Urea Nitrogen 11 mg/dL (8-23); Calcium 9.3 mg/dL (8.5-10.5); Carbon Dioxide 26 mmol/L (22-29); Chloride 102 mmol/L (98-107); Globulin 2.6 g/dL (1.3-4.6); Glomerular Filtration Rate 98.8 mL/min (90-130); Glucose 111 mg/dL (65-115); Osmolality Calculated 288 mOsm/kg (285-295); Sodium 139 mmol/L (136-145); Total Bilirubin 0.4 mg/dL (0.15-1.2); Total Protein 6.8 g/dL (6.6-8.7)
[2022-06-18 10:21] LABS: Anion Gap 15.2 (5-19); Aspartate Amino Transferase 28 U/L (0-32); Potassium 4.2 mmol/L (3.5-5.1)
[2022-06-18] MEDS: ondansetron 2 mg/ML SDV 2 mL 8 MG IVP (11:06)
[2022-06-18] MEDS: sodium chloride 0.9% 250 ML 75 ML IV (11:06)
[2022-06-18 11:18] LABS: Chol HDL Ratio 6.86 mg/dL (0.0-4.40); Cholesterol 295 mg/dL (0-200); HDL Cholesterol 43 mg/dL (60-100); LDL Cholesterol Calculated 172 mg/dL (50-129); Triglycerides 399 mg/dL (0-150)
[2022-06-18] MEDS: DECITABINE IV (11:26)
[2022-06-18] MEDS: SODIUM CHLORIDE 0.9% IV (11:26)
[2022-06-18 12:37] VITALS: BP 126/67; PULSE 64; RESP 18; TEMP 36.2; O2SAT 93
[2022-06-19 13:00] VITALS: BP 134/75; PULSE 58; RESP 16; TEMP 36.3; O2SAT 97
[2022-06-19] MEDS: sodium chloride 0.9% 250 ML 75 ML IV (13:10)
[2022-06-19] MEDS: ondansetron 2 mg/ML SDV 2 mL 8 MG IVP (13:11)
[2022-06-19] MEDS: DECITABINE IV (13:13)
[2022-06-19] MEDS: SODIUM CHLORIDE 0.9% IV (13:13)
[2022-06-20 12:46] VITALS: BP 140/64; PULSE 59; RESP 16; TEMP 36.3; O2SAT 96
[2022-06-20] MEDS: sodium chloride 0.9% 250 ML 75 ML IV (12:54)
[2022-06-20] MEDS: ondansetron 2 mg/ML SDV 2 mL 8 MG IVP (12:55)
[2022-06-20] MEDS: SODIUM CHLORIDE 0.9% IV (13:10)
[2022-06-20] MEDS: DECITABINE IV (13:10)
[2022-06-20] MEDS: cyanocobalamin 1,000 mcg/mL SDV 1000 MCG IM (13:59)
[2022-06-20 14:15] VITALS: BP 145/67; PULSE 59; RESP 16; TEMP 37.1; O2SAT 97
[2022-06-21] MEDS: ondansetron 2 mg/ML SDV 2 mL 8 MG IVP (13:26)
[2022-06-21] MEDS: sodium chloride 0.9% 250 ML 100 ML IV (13:28)
[2022-06-21] MEDS: DECITABINE IV (13:31)
[2022-06-21] MEDS: SODIUM CHLORIDE 0.9% IV (13:31)
[2022-06-21 14:33] VITALS: BP 138/92; PULSE 86; TEMP 36.6; O2SAT 97
[2022-06-22] MEDS: sodium chloride 0.9% 250 ML 75 ML IV (10:12)
[2022-06-22] MEDS: ondansetron 2 mg/ML SDV 2 mL 8 MG IVP (10:14)
[2022-06-22] MEDS: DECITABINE IV (10:39)
[2022-06-22] MEDS: SODIUM CHLORIDE 0.9% IV (10:39)
[2022-06-22 11:58] VITALS: BP 152/69; PULSE 57; RESP 16; TEMP 36.5; O2SAT 97
[2022-06-25 14:52] LABS: Basophils % 0.3 %; Eosinophils % 0.5 %; Hematocrit 31.5 % (37.0-47.0); Hemoglobin 9.8 g/dL (11.5-15.3); Lymphocytes # 0.8 10^3/uL (0.8-4.8); Lymphocytes % 20.4 %; Mean Corpuscular HGB Conc 31.1 g/dL (30.0-36.0); Mean Corpuscular Hemoglobin 32.5 pg (28.0-34.0); Mean Corpuscular Volume 104.3 fl (81-99); Monocytes # 0.2 10^3/uL (0.2-0.9); Neutrophils # 2.77 10^3/uL (1.8-7.7); Neutrophils % 72.5 %; Nucleated Red Blood Cells % 0 %; Platelet Count 37 10^3/cmm (130-400); Red Blood Count 3.02 10^6/uL (4.1-5.3); Red Cell Distribution Width 16.7 % (12.1-15.1); White Blood Count 3.8 10^3/uL (4.0-10.0)
[2022-06-25 15:11] LABS: Alanine Aminotransferase 20 U/L (0-33); Albumin Level 4.1 g/dL (3.5-5.2); Alkaline Phosphatase 107 U/L (35-105); Aspartate Amino Transferase 29 U/L (0-32); Blood Urea Nitrogen 12 mg/dL (8-23); Calcium 9.3 mg/dL (8.5-10.5); Carbon Dioxide 27 mmol/L (22-29); Chloride 103 mmol/L (98-107); Globulin 2.3 g/dL (1.3-4.6); Glomerular Filtration Rate 98.8 mL/min (90-130); Glucose 123 mg/dL (65-115); Osmolality Calculated 291 mOsm/kg (285-295); Sodium 140 mmol/L (136-145); Total Bilirubin 0.6 mg/dL (0.15-1.2); Total Protein 6.4 g/dL (6.6-8.7)
[2022-06-25 15:14] LABS: Anion Gap 14.1 (5-19); Potassium 4.1 mmol/L (3.5-5.1)
[2022-06-25 15:28] LABS: Slide Review Slide Review Perform
== END 2022-06-26 23:59 | disposition home or self-care (01) ==
PROVIDERS: Nurse Practitioner; PCP Internal Medicine; Visit Provider Internal Medicine Medical Oncology
DX: C92.01 Acute myeloblastic leukemia, in remission
CPT/HCPCS: 36415; 36591; 80053; 80061; 83615; 85025; 86850; 86900; 96372; 96401; 99214; J0894; J2405; J3420; J7050

== ENCOUNTER 2022-07-26 08:30 | Oncology outpatient (recurring) (ONCR) | payer MEDICARE, SELFPAY ==
[2022-06-28 13:20] LABS: Hematocrit 28.9 % (37.0-47.0); Hemoglobin 9.1 g/dL (11.5-15.3); Lymphocytes # 0.7 10^3/uL (0.8-4.8); Lymphocytes % 49.3 %; Mean Corpuscular HGB Conc 31.5 g/dL (30.0-36.0); Mean Corpuscular Hemoglobin 32.6 pg (28.0-34.0); Mean Corpuscular Volume 103.6 fl (81-99); Monocytes # 0.1 10^3/uL (0.2-0.9); Monocytes % 6.5 %; Neutrophils % 44.2 %; Nucleated Red Blood Cells % 0 %; Red Blood Count 2.79 10^6/uL (4.1-5.3); Red Cell Distribution Width 16.2 % (12.1-15.1); White Blood Count 1.4 10^3/uL (4.0-10.0)
[2022-06-28 13:37] LABS: Alanine Aminotransferase 20 U/L (0-33); Albumin Level 3.9 g/dL (3.5-5.2); Alkaline Phosphatase 104 U/L (35-105); Aspartate Amino Transferase 30 U/L (0-32); Blood Urea Nitrogen 13 mg/dL (8-23); Calcium 8.9 mg/dL (8.5-10.5); Carbon Dioxide 23 mmol/L (22-29); Chloride 101 mmol/L (98-107); Globulin 2.3 g/dL (1.3-4.6); Glomerular Filtration Rate 98.8 mL/min (90-130); Glucose 153 mg/dL (65-115); Osmolality Calculated 287 mOsm/kg (285-295); Sodium 137 mmol/L (136-145); Total Bilirubin 0.7 mg/dL (0.15-1.2); Total Protein 6.2 g/dL (6.6-8.7)
[2022-06-28 13:38] LABS: Anion Gap 16.6 (5-19); Potassium 3.6 mmol/L (3.5-5.1)
[2022-06-28 14:16] LABS: Neutrophils # 0.61 10^3/uL (1.8-7.7); Platelet Count 18 10^3/cmm (130-400)
[2022-06-29] MEDS: sodium chloride 0.9% (100 ml) 100 ML 75 ML (10:16)
[2022-06-29] MEDS: acetaminophen 325 mg Tablet 650 MG PO (10:18)
[2022-06-29] MEDS: diphenhydrAMINE 50 mg/mL SDV 1mL 25 MG IVP (10:20)
[2022-06-29] MEDS: hydrocortisone 100 mg/2 mL SDV IVP (10:25)
[2022-06-29 10:39] VITALS: BP 150/67; PULSE 60; RESP 16; TEMP 36.4
[2022-06-29 10:52] VITALS: BP 150/77; PULSE 65; RESP 18; TEMP 36.6; O2SAT 96
[2022-06-29 11:05] VITALS: BP 150/77; PULSE 65; RESP 18; TEMP 36.6; O2SAT 96
[2022-07-02] MEDS: cyanocobalamin 1,000 mcg/mL SDV 1000 MCG IM (13:28)
[2022-07-02 13:38] LABS: Hematocrit 28.1 % (37.0-47.0); Hemoglobin 9.2 g/dL (11.5-15.3); Lymphocytes # 0.7 10^3/uL (0.8-4.8); Lymphocytes % 72.3 %; Mean Corpuscular HGB Conc 32.7 g/dL (30.0-36.0); Mean Corpuscular Hemoglobin 33.6 pg (28.0-34.0); Mean Corpuscular Volume 102.6 fl (81-99); Monocytes # 0.1 10^3/uL (0.2-0.9); Monocytes % 6.9 %; Neutrophils % 18.8 %; Nucleated Red Blood Cells % 0 %; Red Blood Count 2.74 10^6/uL (4.1-5.3); Red Cell Distribution Width 16.3 % (12.1-15.1)
[2022-07-02 13:49] LABS: Alanine Aminotransferase 21 U/L (0-33); Albumin Level 4.2 g/dL (3.5-5.2); Alkaline Phosphatase 93 U/L (35-105); Aspartate Amino Transferase 29 U/L (0-32); Blood Urea Nitrogen 13 mg/dL (8-23); Carbon Dioxide 24 mmol/L (22-29); Chloride 102 mmol/L (98-107); Globulin 2.1 g/dL (1.3-4.6); Glucose 88 mg/dL (65-115); Osmolality Calculated 284 mOsm/kg (285-295); Sodium 137 mmol/L (136-145); Total Bilirubin 0.7 mg/dL (0.15-1.2); Total Protein 6.3 g/dL (6.6-8.7)
[2022-07-02 13:51] LABS: Anion Gap 14.7 (5-19); Potassium 3.7 mmol/L (3.5-5.1)
[2022-07-02 14:10] LABS: Neutrophils # 0.19 10^3/uL (1.8-7.7); Platelet Count 21 10^3/cmm (130-400); Slide Review Slide Review Perform
[2022-07-05 11:43] LABS: Hematocrit 29.6 % (37.0-47.0); Hemoglobin 9.4 g/dL (11.5-15.3); Lymphocytes # 0.7 10^3/uL (0.8-4.8); Lymphocytes % 81.5 %; Mean Corpuscular HGB Conc 31.8 g/dL (30.0-36.0); Mean Corpuscular Hemoglobin 32.9 pg (28.0-34.0); Mean Corpuscular Volume 103.5 fl (81-99); Monocytes % 1.2 %; Neutrophils % 17.3 %; Nucleated Red Blood Cells % 0 %; Red Blood Count 2.86 10^6/uL (4.1-5.3); Red Cell Distribution Width 16.7 % (12.1-15.1)
[2022-07-05 11:56] LABS: Alanine Aminotransferase 20 U/L (0-33); Alkaline Phosphatase 98 U/L (35-105); Anion Gap 15.2 (5-19); Aspartate Amino Transferase 23 U/L (0-32); Blood Urea Nitrogen 14 mg/dL (8-23); Carbon Dioxide 26 mmol/L (22-29); Chloride 102 mmol/L (98-107); Globulin 2.3 g/dL (1.3-4.6); Glomerular Filtration Rate 98.8 mL/min (90-130); Glucose 92 mg/dL (65-115); Osmolality Calculated 288 mOsm/kg (285-295); Potassium 4.2 mmol/L (3.5-5.1); Sodium 139 mmol/L (136-145); Total Bilirubin 0.5 mg/dL (0.15-1.2); Total Protein 6.3 g/dL (6.6-8.7)
[2022-07-05 12:48] LABS: Neutrophils # 0.14 10^3/uL (1.8-7.7); Platelet Count 9 10^3/cmm (130-400); White Blood Count 0.8 10^3/uL (4.0-10.0)
[2022-07-05 12:50] LABS: Slide Review Slide Review Perform
[2022-07-06] MEDS: acetaminophen 325 mg Tablet 650 MG PO (09:51)
[2022-07-06] MEDS: diphenhydrAMINE 50 mg/mL SDV 1mL 25 MG IVP (09:53)
[2022-07-06] MEDS: hydrocortisone 100 mg/2 mL SDV IVP (09:59)
[2022-07-06 10:37] VITALS: BP 136/64; PULSE 62; RESP 16; TEMP 37.1; O2SAT 97
[2022-07-06 10:50] VITALS: BP 158/72; RESP 16; TEMP 36.6; O2SAT 98
[2022-07-06 11:07] VITALS: BP 137/69; PULSE 56; RESP 16; TEMP 36.8; O2SAT 96
[2022-07-06] MEDS: sodium chloride 0.9% 250 mL Bag IV (11:07)
[2022-07-06 11:35] VITALS: BP 159/65; PULSE 62; RESP 16; TEMP 36.3; O2SAT 96
[2022-07-09 11:31] LABS: Hematocrit 27.8 % (37.0-47.0); Hemoglobin 8.9 g/dL (11.5-15.3); Lymphocytes # 0.6 10^3/uL (0.8-4.8); Lymphocytes % 93.7 %; Mean Corpuscular Hemoglobin 32.8 pg (28.0-34.0); Mean Corpuscular Volume 102.6 fl (81-99); Monocytes % 1.6 %; Neutrophils % 4.7 %; Nucleated Red Blood Cells % 0 %; Red Blood Count 2.71 10^6/uL (4.1-5.3); Red Cell Distribution Width 17.1 % (12.1-15.1)
[2022-07-09 12:23] LABS: Platelet Count 12 10^3/cmm (130-400); White Blood Count 0.6 10^3/uL (4.0-10.0)
[2022-07-09 12:24] LABS: Neutrophils # 0.03 10^3/uL (1.8-7.7); Slide Review Slide Review Perform
[2022-07-09] MEDS: hydrocortisone 100 mg/2 mL SDV IVP (15:41)
[2022-07-09] MEDS: diphenhydrAMINE 25 mg Capsule PO (15:41)
[2022-07-09] MEDS: acetaminophen 325 mg Tablet 650 MG PO (15:41)
[2022-07-09] MEDS: sodium chloride 0.9% 250 ML IV (15:42)
[2022-07-09 16:15] VITALS: BP 148/67; PULSE 62; RESP 16; TEMP 37.4; O2SAT 98
[2022-07-09 16:30] VITALS: BP 145/68; PULSE 66; RESP 18; TEMP 37.7; O2SAT 98
[2022-07-09 16:36] VITALS: BP 145/68; PULSE 66; RESP 16; TEMP 37.5; O2SAT 97
[2022-07-12 11:40] LABS: Hematocrit 25.6 % (37.0-47.0); Hemoglobin 8.3 g/dL (11.5-15.3); Lymphocytes # 0.5 10^3/uL (0.8-4.8); Lymphocytes % 90.4 %; Mean Corpuscular HGB Conc 32.4 g/dL (30.0-36.0); Mean Corpuscular Hemoglobin 33.6 pg (28.0-34.0); Mean Corpuscular Volume 103.6 fl (81-99); Monocytes % 3.8 %; Neutrophils % 3.9 %; Nucleated Red Blood Cells % 0 %; Red Blood Count 2.47 10^6/uL (4.1-5.3); Red Cell Distribution Width 17.4 % (12.1-15.1)
[2022-07-12 12:00] LABS: Slide Review Slide Review Perform
[2022-07-12 12:02] LABS: Alanine Aminotransferase 13 U/L (0-33); Albumin Level 3.9 g/dL (3.5-5.2); Alkaline Phosphatase 85 U/L (35-105); Anion Gap 14.5 (5-19); Aspartate Amino Transferase 16 U/L (0-32); Blood Urea Nitrogen 12 mg/dL (8-23); Carbon Dioxide 24 mmol/L (22-29); Chloride 103 mmol/L (98-107); Globulin 2.3 g/dL (1.3-4.6); Glomerular Filtration Rate 98.8 mL/min (90-130); Glucose 129 mg/dL (65-115); Neutrophils # 0.02 10^3/uL (1.8-7.7); Osmolality Calculated 287 mOsm/kg (285-295); Platelet Count 26 10^3/cmm (130-400); Potassium 3.5 mmol/L (3.5-5.1); Sodium 138 mmol/L (136-145); Total Bilirubin 0.8 mg/dL (0.15-1.2); Total Protein 6.2 g/dL (6.6-8.7); White Blood Count 0.5 10^3/uL (4.0-10.0)
[2022-07-19] VITALS (12 sets, daily range): BP systolic 102–130; BP diastolic 36–66; PULSE 56–62; RESP 18; TEMP 36.6–36.9; O2SAT 93–98
[2022-07-19 09:22] LABS: Hematocrit 23.3 % (37.0-47.0); Hemoglobin 7.2 g/dL (11.5-15.3); Lymphocytes # 0.7 10^3/uL (0.8-4.8); Lymphocytes % 62.5 %; Mean Corpuscular HGB Conc 30.9 g/dL (30.0-36.0); Mean Corpuscular Hemoglobin 33.2 pg (28.0-34.0); Mean Corpuscular Volume 107.4 fl (81-99); Monocytes # 0.1 10^3/uL (0.2-0.9); Monocytes % 11.6 %; Nucleated Red Blood Cells % 0 %; Platelet Count 48 10^3/cmm (130-400); Red Blood Count 2.17 10^6/uL (4.1-5.3); Red Cell Distribution Width 17.7 % (12.1-15.1); White Blood Count 1.1 10^3/uL (4.0-10.0)
[2022-07-19] MEDS: cyanocobalamin 1,000 mcg/mL SDV 1000 MCG IM (09:40)
[2022-07-19 10:05] LABS: Neutrophils # 0.28 10^3/uL (1.8-7.7)
[2022-07-19 10:06] LABS: Slide Review Slide Review Perform
[2022-07-19] MEDS: acetaminophen 325 mg Tablet 650 MG PO (11:50)
[2022-07-19] MEDS: diphenhydrAMINE 25 mg Capsule PO (11:50)
[2022-07-19] MEDS: sodium chloride 0.9% 250 mL Bag IV (11:53)
[2022-07-19] MEDS: FUROsemide 10 mg/mL SDV 2mL 20 MG IVP (13:22)
[2022-07-23 12:58] VITALS: BP 151/64; PULSE 59; RESP 18; TEMP 36.4; O2SAT 98
[2022-07-23 13:31] LABS: Eosinophils % 0.5 %; Hematocrit 34.3 % (37.0-47.0); Hemoglobin 10.8 g/dL (11.5-15.3); Lymphocytes % 46.4 %; Mean Corpuscular HGB Conc 31.5 g/dL (30.0-36.0); Mean Corpuscular Hemoglobin 31.7 pg (28.0-34.0); Mean Corpuscular Volume 100.6 fl (81-99); Monocytes # 0.5 10^3/uL (0.2-0.9); Monocytes % 21.7 %; Neutrophils % 30.9 %; Nucleated Red Blood Cells % 0 %; Platelet Count 31 10^3/cmm (130-400); Red Blood Count 3.41 10^6/uL (4.1-5.3); Red Cell Distribution Width 17.4 % (12.1-15.1); White Blood Count 2.1 10^3/uL (4.0-10.0)
[2022-07-23 13:36] LABS: Neutrophils # 0.64 10^3/uL (1.8-7.7)
[2022-07-26 09:18] LABS: Hemoglobin 10.7 g/dL (11.5-15.3); Lymphocytes # 0.9 10^3/uL (0.8-4.8); Lymphocytes % 34.9 %; Mean Corpuscular HGB Conc 32.4 g/dL (30.0-36.0); Mean Corpuscular Hemoglobin 32.7 pg (28.0-34.0); Mean Corpuscular Volume 100.9 fl (81-99); Monocytes # 0.6 10^3/uL (0.2-0.9); Monocytes % 22.1 %; Neutrophils # 1.03 10^3/uL (1.8-7.7); Neutrophils % 41.4 %; Nucleated Red Blood Cells % 0 %; Red Blood Count 3.27 10^6/uL (4.1-5.3); Red Cell Distribution Width 17.2 % (12.1-15.1); White Blood Count 2.5 10^3/uL (4.0-10.0)
[2022-07-26 09:20] VITALS: BP 124/78; PULSE 72; RESP 18; TEMP 36.8; O2SAT 98
[2022-07-26 09:41] LABS: Slide Review Slide Review Perform
[2022-07-26 09:42] LABS: Platelet Count 29 10^3/cmm (130-400)
== END 2022-07-27 23:59 | disposition home or self-care (01) ==
PROVIDERS: Nurse Practitioner; Nurse Practitioner Family; PCP Internal Medicine; Visit Provider Internal Medicine Medical Oncology
DX: C92.01 Acute myeloblastic leukemia, in remission (principal)
CPT/HCPCS: 36415; 36430; 36591; 80053; 85025; 86850; 86900; 86920; 96361; 96372; 96374; 96375; J1200; J1720; J1940; J3420; J7050; P9037; P9040

== ENCOUNTER 2022-08-22 15:51 | Oncology outpatient (recurring) (ONCR) | payer MEDICARE, SELFPAY ==
[2022-07-30 13:35] VITALS: BP 130/69; PULSE 65; TEMP 37.1; O2SAT 99
[2022-07-30 14:09] LABS: Basophils % 0.3 %; Eosinophils % 0.3 %; Hematocrit 33.7 % (37.0-47.0); Hemoglobin 10.7 g/dL (11.5-15.3); Lymphocytes % 31.9 %; Mean Corpuscular HGB Conc 31.8 g/dL (30.0-36.0); Mean Corpuscular Volume 100.9 fl (81-99); Mean Platelet Volume 9.3 fL (7.4-10.4); Monocytes # 0.7 10^3/uL (0.2-0.9); Monocytes % 21.5 %; Neutrophils # 1.49 10^3/uL (1.8-7.7); Neutrophils % 45.7 %; Nucleated Red Blood Cells % 0 %; Platelet Count 31 10^3/cmm (130-400); Red Blood Count 3.34 10^6/uL (4.1-5.3); Red Cell Distribution Width 17.5 % (12.1-15.1); White Blood Count 3.3 10^3/uL (4.0-10.0)
[2022-08-02 13:33] LABS: Basophils % 0.3 %; Eosinophils % 0.3 %; Hematocrit 32.2 % (37.0-47.0); Hemoglobin 10.3 g/dL (11.5-15.3); Lymphocytes # 0.9 10^3/uL (0.8-4.8); Lymphocytes % 28.4 %; Mean Corpuscular Hemoglobin 32.8 pg (28.0-34.0); Mean Corpuscular Volume 102.5 fl (81-99); Mean Platelet Volume 9.9 fL (7.4-10.4); Monocytes # 0.6 10^3/uL (0.2-0.9); Monocytes % 19.8 %; Neutrophils # 1.57 10^3/uL (1.8-7.7); Neutrophils % 50.2 %; Nucleated Red Blood Cells % 0 %; Platelet Count 34 10^3/cmm (130-400); Red Blood Count 3.14 10^6/uL (4.1-5.3); Red Cell Distribution Width 17.9 % (12.1-15.1); White Blood Count 3.1 10^3/uL (4.0-10.0)
[2022-08-02] MEDS: cyanocobalamin 1,000 mcg/mL SDV 1000 MCG IM (13:39)
[2022-08-06 13:00] VITALS: BMI 24.3
[2022-08-06 13:15] VITALS: BP 123/70; PULSE 56; RESP 16; TEMP 36.5; O2SAT 98
[2022-08-06 13:26] LABS: Basophils % 0.2 %; Eosinophils % 0.2 %; Hematocrit 32.1 % (37.0-47.0); Hemoglobin 10.2 g/dL (11.5-15.3); Lymphocytes % 24.6 %; Mean Corpuscular HGB Conc 31.8 g/dL (30.0-36.0); Mean Corpuscular Hemoglobin 32.4 pg (28.0-34.0); Mean Corpuscular Volume 101.9 fl (81-99); Monocytes # 0.8 10^3/uL (0.2-0.9); Monocytes % 18.6 %; Neutrophils # 2.33 10^3/uL (1.8-7.7); Neutrophils % 55.7 %; Nucleated Red Blood Cells % 0 %; Platelet Count 46 10^3/cmm (130-400); Red Blood Count 3.15 10^6/uL (4.1-5.3); Red Cell Distribution Width 18.2 % (12.1-15.1); White Blood Count 4.2 10^3/uL (4.0-10.0)
[2022-08-06 13:58] LABS: Slide Review Slide Review Perform
--- NOTE | 2022-08-06 15:32 | PC.NURSE ---
This nurse showed Dr. Bradshaw this patient's lab results and he let me know that her labs looked good and asked when she is due for treatment. I let Dr. Bradshaw know that I was not sure but I will find out. Dr. Bradshaw said that she can have her labs checked in 1 week. This nurse called the patient and I let her know what her lab results were. I asked her when she is due for treatment and she let me know that her treatment is due 08/13/22 and that she is supposed to see Dr. Bradshaw for follow up. Patient had no other questions or concerns. Dr. Bradshaw will be made aware of her next treatment.
[2022-08-13 12:18] VITALS: BMI 24.4
[2022-08-13 12:31] LABS: Basophils % 0.3 %; Eosinophils % 0.5 %; Hematocrit 33.3 % (37.0-47.0); Hemoglobin 10.7 g/dL (11.5-15.3); Lymphocytes # 1.1 10^3/uL (0.8-4.8); Lymphocytes % 18.6 %; Mean Corpuscular HGB Conc 32.1 g/dL (30.0-36.0); Mean Corpuscular Hemoglobin 32.8 pg (28.0-34.0); Mean Corpuscular Volume 102.1 fl (81-99); Mean Platelet Volume 10.6 fL (7.4-10.4); Monocytes # 0.9 10^3/uL (0.2-0.9); Monocytes % 15.7 %; Neutrophils # 3.68 10^3/uL (1.8-7.7); Neutrophils % 64.2 %; Nucleated Red Blood Cells % 0 %; Platelet Count 54 10^3/cmm (130-400); Red Blood Count 3.26 10^6/uL (4.1-5.3); Red Cell Distribution Width 18.7 % (12.1-15.1); White Blood Count 5.7 10^3/uL (4.0-10.0)
[2022-08-13 12:49] LABS: Alanine Aminotransferase 18 U/L (0-33); Albumin Level 4.1 g/dL (3.5-5.2); Alkaline Phosphatase 96 U/L (35-105); Blood Urea Nitrogen 11 mg/dL (8-23); Calcium 9.3 mg/dL (8.5-10.5); Carbon Dioxide 25 mmol/L (22-29); Chloride 98 mmol/L (98-107); Globulin 2.6 g/dL (1.3-4.6); Glucose 89 mg/dL (65-115); Osmolality Calculated 277 mOsm/kg (285-295); Sodium 134 mmol/L (136-145); Total Bilirubin 0.4 mg/dL (0.15-1.2); Total Protein 6.7 g/dL (6.6-8.7)
[2022-08-13 12:50] LABS: Anion Gap 15.4 (5-19); Potassium 4.4 mmol/L (3.5-5.1)
[2022-08-13 12:51] LABS: Aspartate Amino Transferase 30 U/L (0-32); Lactate Dehydrogenase 332 U/L (135-214)
[2022-08-13] MEDS: sodium chloride 0.9% 250 ML 75 ML IV (14:11)
[2022-08-13] MEDS: ondansetron 2 mg/ML SDV 2 mL 8 MG IVP (14:15)
[2022-08-13] MEDS: SODIUM CHLORIDE 0.9% IV (14:27)
[2022-08-13] MEDS: DECITABINE IV (14:27)
[2022-08-13 15:59] VITALS: BP 130/65; PULSE 60; RESP 18; TEMP 36.3; O2SAT 98
[2022-08-14 11:12] VITALS: BP 120/66; PULSE 61; RESP 18; TEMP 36.6; O2SAT 96
[2022-08-14] MEDS: sodium chloride 0.9% 250 ML 75 ML IV (11:24)
[2022-08-14] MEDS: ondansetron 2 mg/ML SDV 2 mL 8 MG IVP (11:24)
[2022-08-14] MEDS: DECITABINE IV (11:45)
[2022-08-14] MEDS: SODIUM CHLORIDE 0.9% IV (11:45)
[2022-08-14 13:28] VITALS: BP 121/62; PULSE 62; RESP 16; TEMP 36.6; O2SAT 97
[2022-08-15 11:03] VITALS: BP 119/62; PULSE 59; RESP 16; TEMP 35.8; O2SAT 96
[2022-08-15] MEDS: sodium chloride 0.9% 250 ML 75 ML IV (11:17)
[2022-08-15] MEDS: ondansetron 2 mg/ML SDV 2 mL 8 MG IVP (11:19)
[2022-08-15] MEDS: SODIUM CHLORIDE 0.9% IV (12:02)
[2022-08-15] MEDS: DECITABINE IV (12:02)
[2022-08-15 13:35] VITALS: BP 147/63; PULSE 60; RESP 16; TEMP 36.3; O2SAT 96
[2022-08-16] MEDS: sodium chloride 0.9% 250 ML 100 ML IV (11:25)
[2022-08-16] MEDS: ondansetron 2 mg/ML SDV 2 mL 8 MG IVP (11:26)
[2022-08-16] MEDS: SODIUM CHLORIDE 0.9% IV (11:39)
[2022-08-16] MEDS: DECITABINE IV (11:39)
[2022-08-16] MEDS: cyanocobalamin 1,000 mcg/mL SDV 1000 MCG IM (13:03)
[2022-08-16 14:03] VITALS: BP 122/64; PULSE 85; TEMP 37.1; O2SAT 96
[2022-08-17] MEDS: ondansetron 2 mg/ML SDV 2 mL 8 MG IVP (08:12)
[2022-08-17] MEDS: sodium chloride 0.9% 250 ML 100 ML IV (08:12)
[2022-08-17 08:18] VITALS: BP 135/67; PULSE 55; TEMP 37; O2SAT 97
[2022-08-17] MEDS: DECITABINE IV (08:25)
[2022-08-17] MEDS: SODIUM CHLORIDE 0.9% IV (08:25)
[2022-08-17 09:49] VITALS: BP 157/66; PULSE 60; TEMP 36.9; O2SAT 94
[2022-08-20 13:00] VITALS: BP 127/71; PULSE 60; RESP 16; TEMP 36.8; O2SAT 96
[2022-08-20 13:28] LABS: Eosinophils % 0.4 %; Hematocrit 29.3 % (37.0-47.0); Hemoglobin 9.5 g/dL (11.5-15.3); Lymphocytes # 0.6 10^3/uL (0.8-4.8); Mean Corpuscular HGB Conc 32.4 g/dL (30.0-36.0); Mean Corpuscular Hemoglobin 33.1 pg (28.0-34.0); Mean Corpuscular Volume 102.1 fl (81-99); Mean Platelet Volume 10.6 fL (7.4-10.4); Monocytes # 0.3 10^3/uL (0.2-0.9); Monocytes % 5.8 %; Neutrophils # 3.57 10^3/uL (1.8-7.7); Neutrophils % 79.4 %; Nucleated Red Blood Cells % 0 %; Platelet Count 45 10^3/cmm (130-400); Red Blood Count 2.87 10^6/uL (4.1-5.3); Red Cell Distribution Width 18.6 % (12.1-15.1); White Blood Count 4.5 10^3/uL (4.0-10.0)
--- NOTE | 2022-08-20 13:44 | PC.NURSE ---
Patient called with todays CBC results. she repeated back understanding of results. Dr. Bradshaw confirmed with patient that it was okay to take a family vacation the week before her September tx.
[2022-08-22 17:14] LABS: Hematocrit 30.4 % (37.0-47.0); Hemoglobin 9.7 g/dL (11.5-15.3); Lymphocytes # 0.6 10^3/uL (0.8-4.8); Lymphocytes % 36.6 %; Mean Corpuscular HGB Conc 31.9 g/dL (30.0-36.0); Mean Corpuscular Hemoglobin 33.1 pg (28.0-34.0); Mean Corpuscular Volume 103.8 fl (81-99); Mean Platelet Volume 12.1 fL (7.4-10.4); Monocytes # 0.1 10^3/uL (0.2-0.9); Monocytes % 5.8 %; Neutrophils # 0.99 10^3/uL (1.8-7.7); Neutrophils % 57.6 %; Nucleated Red Blood Cells % 0 %; Platelet Count 31 10^3/cmm (130-400); Red Blood Count 2.93 10^6/uL (4.1-5.3); Red Cell Distribution Width 18.6 % (12.1-15.1); White Blood Count 1.7 10^3/uL (4.0-10.0)
== END 2022-08-26 23:59 | disposition home or self-care (01) ==
PROVIDERS: PCP Internal Medicine; Visit Provider Internal Medicine Medical Oncology
DX: C92.01 Acute myeloblastic leukemia, in remission
CPT/HCPCS: 36415; 36591; 80053; 83615; 85025; 86850; 86900; 96361; 96372; 96374; 96375; 96401; 96413; 99214; J0894; J1642; J2405; J3420; J7050

== ENCOUNTER 2022-09-25 12:30 | Oncology outpatient (recurring) (ONCR) | payer MEDICARE, SELFPAY ==
[2022-08-27 12:05] VITALS: BP 122/65; PULSE 59; RESP 18; TEMP 36.3
[2022-08-27 12:15] LABS: Hematocrit 26.7 % (37.0-47.0); Hemoglobin 8.7 g/dL (11.5-15.3); Lymphocytes # 0.7 10^3/uL (0.8-4.8); Lymphocytes % 67.6 %; Mean Corpuscular HGB Conc 32.6 g/dL (30.0-36.0); Mean Corpuscular Hemoglobin 32.7 pg (28.0-34.0); Mean Corpuscular Volume 100.4 fl (81-99); Monocytes # 0.1 10^3/uL (0.2-0.9); Monocytes % 10.2 %; Neutrophils % 21.3 %; Nucleated Red Blood Cells % 0 %; Red Blood Count 2.66 10^6/uL (4.1-5.3); Red Cell Distribution Width 17.7 % (12.1-15.1); White Blood Count 1.1 10^3/uL (4.0-10.0)
[2022-08-27 12:20] LABS: Neutrophils # 0.23 10^3/uL (1.8-7.7); Platelet Count 8 10^3/cmm (130-400)
[2022-08-27] MEDS: hydrocortisone 100 mg/2 mL SDV IVP (15:01)
[2022-08-27] MEDS: diphenhydrAMINE 50 mg/mL SDV 1mL 25 MG IVP (15:02)
[2022-08-27] MEDS: sodium chloride 0.9% 250 mL Bag IV (15:02)
[2022-08-27] MEDS: acetaminophen 325 mg Tablet 650 MG PO (15:02)
[2022-08-27 15:11] VITALS: BP 125/62; PULSE 68; RESP 18; TEMP 37.1; O2SAT 98
[2022-08-27 15:29] VITALS: BP 125/69; PULSE 65; RESP 18; TEMP 36.8; O2SAT 98
[2022-08-27 15:30] VITALS: BP 125/69; PULSE 65; RESP 18; TEMP 36.8; O2SAT 98
[2022-08-30 13:17] LABS: Hematocrit 27.1 % (37.0-47.0); Hemoglobin 8.8 g/dL (11.5-15.3); Lymphocytes # 0.8 10^3/uL (0.8-4.8); Lymphocytes % 80.2 %; Mean Corpuscular HGB Conc 32.5 g/dL (30.0-36.0); Mean Corpuscular Hemoglobin 33.3 pg (28.0-34.0); Mean Corpuscular Volume 102.7 fl (81-99); Monocytes % 3.1 %; Neutrophils % 16.7 %; Nucleated Red Blood Cells % 0 %; Red Blood Count 2.64 10^6/uL (4.1-5.3); Red Cell Distribution Width 18.9 % (12.1-15.1)
[2022-08-30 13:23] LABS: Platelet Count 17 10^3/cmm (130-400)
[2022-08-30 13:24] LABS: Neutrophils # 0.16 10^3/uL (1.8-7.7)
--- NOTE | 2022-08-30 14:47 | PC.NURSE ---
Patient called at 1355 and notified of lab results and the need for a unit of platlets. We are unable to obtain the plts until late tonight so patient will come back at 0800 tomorrow to receive transfusion. Patient verbalized understanding of instructions and verified she is still taking her Levaquin due to WBC 1.0 and ANC 0.16
[2022-08-31] MEDS: sodium chloride 0.9% 250 mL Bag IV (08:27)
[2022-08-31 08:30] VITALS: BP 162/71; PULSE 59; TEMP 36.8; O2SAT 98
[2022-08-31] MEDS: acetaminophen 325 mg Tablet 650 MG PO (08:34)
[2022-08-31] MEDS: diphenhydrAMINE 50 mg/mL SDV 1mL 25 MG IVP (08:36)
[2022-08-31] MEDS: hydrocortisone 100 mg/2 mL SDV IVP (08:39)
[2022-08-31 09:21] VITALS: BP 162/71; PULSE 59; TEMP 36.8; O2SAT 98
[2022-08-31 09:49] VITALS: BP 149/66; PULSE 62; TEMP 36.9; O2SAT 91
[2022-09-03 12:33] VITALS: BP 136/71; PULSE 64; RESP 18; TEMP 36.8; O2SAT 99
[2022-09-03] MEDS: cyanocobalamin 1,000 mcg/mL SDV 1000 MCG IM (12:48)
[2022-09-03 12:51] LABS: Lymphocytes # 0.7 10^3/uL (0.8-4.8); Mean Corpuscular HGB Conc 32.1 g/dL (30.0-36.0); Mean Corpuscular Hemoglobin 33.3 pg (28.0-34.0); Mean Corpuscular Volume 103.7 fl (81-99); Monocytes % 1.4 %; Neutrophils % 5.6 %; Nucleated Red Blood Cells % 0 %; Red Cell Distribution Width 19.1 % (12.1-15.1)
[2022-09-03 13:24] LABS: Slide Review Slide Review Perform
[2022-09-03 13:25] LABS: Neutrophils # 0.04 10^3/uL (1.8-7.7); Platelet Count 26 10^3/cmm (130-400); White Blood Count 0.7 10^3/uL (4.0-10.0)
--- NOTE | 2022-09-03 14:14 | PC.NURSE ---
Patient notified of low WBC and ANC count and she verified that she is still taking her Levaquin. A refill for Levaquin was sent to the pharmacy per PRISCILLA Schneider.
[2022-09-06 12:30] VITALS: BP 116/63; PULSE 61; RESP 18; TEMP 36.7; O2SAT 99
[2022-09-06 14:01] LABS: Basophils % 1.3 %; Hematocrit 26.6 % (37.0-47.0); Hemoglobin 8.4 g/dL (11.5-15.3); Lymphocytes # 0.7 10^3/uL (0.8-4.8); Lymphocytes % 91.3 %; Mean Corpuscular HGB Conc 31.6 g/dL (30.0-36.0); Mean Corpuscular Hemoglobin 33.7 pg (28.0-34.0); Mean Corpuscular Volume 106.8 fl (81-99); Monocytes % 2.5 %; Neutrophils % 4.9 %; Nucleated Red Blood Cells % 0 %; Platelet Count 36 10^3/cmm (130-400); Red Blood Count 2.49 10^6/uL (4.1-5.3)
[2022-09-06 14:36] LABS: Slide Review Slide Review Perform
[2022-09-06 14:38] LABS: Neutrophils # 0.04 10^3/uL (1.8-7.7); White Blood Count 0.8 10^3/uL (4.0-10.0)
[2022-09-10 12:54] LABS: Hematocrit 25.6 % (37.0-47.0); Hemoglobin 8.4 g/dL (11.5-15.3); Lymphocytes # 0.8 10^3/uL (0.8-4.8); Lymphocytes % 78.4 %; Mean Corpuscular HGB Conc 32.8 g/dL (30.0-36.0); Mean Corpuscular Hemoglobin 35.3 pg (28.0-34.0); Mean Corpuscular Volume 107.6 fl (81-99); Mean Platelet Volume 11.5 fL (7.4-10.4); Monocytes # 0.1 10^3/uL (0.2-0.9); Monocytes % 5.2 %; Neutrophils % 16.4 %; Nucleated Red Blood Cells % 0 %; Platelet Count 41 10^3/cmm (130-400); Red Blood Count 2.38 10^6/uL (4.1-5.3)
[2022-09-10 13:18] LABS: Slide Review Slide Review Perform
[2022-09-10 13:19] LABS: Neutrophils # 0.16 10^3/uL (1.8-7.7)
[2022-09-13 12:55] LABS: Hematocrit 25.8 % (37.0-47.0); Hemoglobin 8.2 g/dL (11.5-15.3); Mean Corpuscular HGB Conc 31.8 g/dL (30.0-36.0); Mean Corpuscular Volume 107.1 fl (81-99); Mean Platelet Volume 11.7 fL (7.4-10.4); Platelet Count 50 10^3/cmm (130-400); Red Blood Count 2.41 10^6/uL (4.1-5.3); Red Cell Distribution Width 19.6 % (12.1-15.1); White Blood Count 1.2 10^3/uL (4.0-10.0)
[2022-09-13 13:25] LABS: Slide Review Slide Review Perform
[2022-09-13 13:26] LABS: Absolute Segmented Neutrophil 0.3 10/cmm (1.6-7.1); Eosinophils 0 %; Lymphocytes 62 %; Lymphocytes Absolute 0.7 10^3/cmm (1.2-3.4); Monocytes Absolute 0.1 10^3/cmm (0.1-0.6); Platelet Estimate Normal (Normal); Segmented Neutrophils 28 %; Total Cells Counted 100 (0-100)
[2022-09-13 13:27] LABS: Absolute Neutrophil 0.3 10^3/cmm (1.4-6.5)
[2022-09-17 12:57] VITALS: BP 132/67; PULSE 51; RESP 16; TEMP 36.8; O2SAT 99
[2022-09-17] MEDS: cyanocobalamin 1,000 mcg/mL SDV 1000 MCG IM (13:30)
[2022-09-17 13:43] LABS: Eosinophils % 0.5 %; Hematocrit 25.8 % (37.0-47.0); Hemoglobin 8.1 g/dL (11.5-15.3); Lymphocytes # 0.9 10^3/uL (0.8-4.8); Lymphocytes % 42.3 %; Mean Corpuscular HGB Conc 31.4 g/dL (30.0-36.0); Mean Corpuscular Hemoglobin 34.2 pg (28.0-34.0); Mean Corpuscular Volume 108.9 fl (81-99); Monocytes # 0.4 10^3/uL (0.2-0.9); Monocytes % 17.8 %; Neutrophils % 38.5 %; Nucleated Red Blood Cells % 0 %; Platelet Count 38 10^3/cmm (130-400); Red Blood Count 2.37 10^6/uL (4.1-5.3); White Blood Count 2.1 10^3/uL (4.0-10.0)
[2022-09-17 13:51] LABS: Neutrophils # 0.82 10^3/uL (1.8-7.7)
[2022-09-20 14:20] VITALS: BP 120/78; PULSE 68; RESP 18; TEMP 36.6; O2SAT 98
[2022-09-20 14:39] LABS: Hematocrit 23.7 % (37.0-47.0); Hemoglobin 7.6 g/dL (11.5-15.3); Lymphocytes # 0.8 10^3/uL (0.8-4.8); Mean Corpuscular HGB Conc 32.1 g/dL (30.0-36.0); Mean Corpuscular Hemoglobin 35.5 pg (28.0-34.0); Mean Corpuscular Volume 110.7 fl (81-99); Mean Platelet Volume 10.5 fL (7.4-10.4); Monocytes # 0.5 10^3/uL (0.2-0.9); Nucleated Red Blood Cells % 0 %; Platelet Count 30 10^3/cmm (130-400); Red Blood Count 2.14 10^6/uL (4.1-5.3); Red Cell Distribution Width 20.4 % (12.1-15.1); White Blood Count 2.3 10^3/uL (4.0-10.0)
[2022-09-20 15:39] LABS: Slide Review Slide Review Perform
[2022-09-20 15:41] LABS: Lymphocytes % 36.3 %; Monocytes % 19.2 %; Neutrophils % 43.2 %
[2022-09-20 15:43] LABS: Neutrophils # 0.96 10^3/uL (1.8-7.7)
--- NOTE | 2022-09-20 17:26 | PC.NURSE ---
Patient notified to return in am for the transfusion of 2 units.nancy
[2022-09-21] VITALS (12 sets, daily range): BP systolic 122–142; BP diastolic 58–64; PULSE 54–65; RESP 16; TEMP 36.3–36.9; O2SAT 98–99
[2022-09-21] MEDS: acetaminophen 325 mg Tablet 650 MG PO (07:51)
[2022-09-21] MEDS: diphenhydrAMINE 25 mg Capsule PO (07:52)
[2022-09-21] MEDS: sodium chloride 0.9% 250 mL Bag IV (07:54)
[2022-09-21] MEDS: FUROsemide 10 mg/mL SDV 2mL 20 MG IVP (10:33)
[2022-09-25 13:18] VITALS: BP 144/77; PULSE 59; RESP 18; TEMP 36.6; O2SAT 97
[2022-09-25 14:23] LABS: Basophils % 0.3 %; Eosinophils % 0.3 %; Hemoglobin 11.7 g/dL (11.5-15.3); Lymphocytes # 0.9 10^3/uL (0.8-4.8); Lymphocytes % 25.2 %; Mean Corpuscular HGB Conc 32.5 g/dL (30.0-36.0); Mean Corpuscular Hemoglobin 32.3 pg (28.0-34.0); Mean Corpuscular Volume 99.4 fl (81-99); Monocytes # 0.7 10^3/uL (0.2-0.9); Monocytes % 17.8 %; Neutrophils # 2.03 10^3/uL (1.8-7.7); Neutrophils % 55.6 %; Nucleated Red Blood Cells % 0 %; Platelet Count 35 10^3/cmm (130-400); Red Blood Count 3.62 10^6/uL (4.1-5.3); Red Cell Distribution Width 22.3 % (12.1-15.1); White Blood Count 3.7 10^3/uL (4.0-10.0)
[2022-09-25 14:58] LABS: Slide Review Slide Review Perform
--- NOTE | 2022-09-25 15:05 | PC.NURSE ---
Patients results reviewed with no changes or complaints. She is aware of the follow up care.
== END 2022-09-26 23:59 | disposition home or self-care (01) ==
PROVIDERS: PCP Internal Medicine; Visit Provider Internal Medicine Medical Oncology
DX: C92.01 Acute myeloblastic leukemia, in remission (principal)
CPT/HCPCS: 36430; 36591; 85007; 85025; 86850; 86900; 86920; 96372; 96374; 96375; J1200; J1642; J1720; J1940; J3420; J7050; P9037; P9040

== ENCOUNTER → 2022-10-08 15:47 | Outpatient (BNVA) | payer MEDICARE, MEDICAID, SELFPAY | PROVIDERS: PCP Internal Medicine; Visit Provider Internal Medicine Medical Oncology | DX: C92.01 Acute myeloblastic leukemia, in remission (principal) | CPT/HCPCS: 99214 ==

== ENCOUNTER 2022-10-15 16:19 | Outpatient (CLI) | payer MEDICARE, MEDICAID, SELFPAY ==
--- NOTE | 2022-10-15 16:31 | XRR_ITS ---
PROCEDURE INFORMATION: Exam: XR Chest Exam date and time: 10/15/2022 4:33 PM Age: 72 years old Clinical indication: Cough; Prior surgery; Surgery date: 6+ months; Surgery type: Port; Patient HX: HX of leukemia TECHNIQUE: Imaging protocol: Radiologic exam of the chest. Views: 2 views. COMPARISON: CR XR chest 2V* [id number] 09/30/2021 6:20 PM FINDINGS: Tubes, catheters and devices: Interval placement of a left internal jugular Port-A-Cath with the tip at the cavoatrial junction. Lungs: Lungs are clear bilaterally. Pleural spaces: No pleural effusion. No pneumothorax. Heart/Mediastinum: Stable moderate enlargement of the cardiac silhouette. Mediastinal contours are unremarkable. Vasculature: Stable vascular calcifications in the aorta. Bones/joints: Unremarkable for age. XR/XR chest 2V* [id number] IMPRESSION: 1. No acute cardiopulmonary process. 2. Interval placement of a left internal jugular Port-A-Cath with the tip at the cavoatrial junction. 3. Incidental/nonacute findings are listed in the report.
== END 2022-10-15 16:20 | disposition home or self-care (01) ==
LOC: RAD 16:24
PROVIDERS: PCP Internal Medicine; Visit Provider Nurse Practitioner Family
DX: R06.02 Shortness of breath (principal); R05.9 Cough, unspecified
CPT/HCPCS: 71046

== ENCOUNTER 2022-10-16 19:59 | Inpatient (IN) | payer MEDICARE, MEDICAID, SELFPAY ==
--- NOTE | 2022-10-16 20:06 | XRR_ITS ---
PROCEDURE INFORMATION: Exam: XR Chest Exam date and time: 10/16/2022 7:10 PM Age: 72 years old Clinical indication: Fever TECHNIQUE: Imaging protocol: Radiologic exam of the chest. Views: 1 view. COMPARISON: CR XR chest 2V* [id number] 10/15/2022 4:33 PM FINDINGS: Tubes, catheters and devices: Left-sided Port-A-Cath. Lungs: Unremarkable. No consolidation. Pleural spaces: Unremarkable. No pleural effusion. No pneumothorax. Heart/Mediastinum: Unremarkable. No cardiomegaly. Bones/joints: Unremarkable. XR/XR chest 1V portable [id number] IMPRESSION: Negative for infiltrate
[2022-10-16 20:10] VITALS: BP 160/69; PULSE 80; RESP 18; TEMP 38.3; O2SAT 96
[2022-10-16] MEDS: acetaminophen 500 mg Tablet 1000 MG PO (20:48)
[2022-10-16 20:54] LABS: Eosinophils % 0.4 %; Hematocrit 33.6 % (37.0-47.0); Hemoglobin 10.9 g/dL (11.5-15.3); Lymphocytes # 0.4 10^3/uL (0.8-4.8); Lymphocytes % 18.9 %; Mean Corpuscular HGB Conc 32.4 g/dL (30.0-36.0); Mean Corpuscular Hemoglobin 32.9 pg (28.0-34.0); Mean Corpuscular Volume 101.5 fl (81-99); Mean Platelet Volume 9.7 fL (7.4-10.4); Monocytes # 0.1 10^3/uL (0.2-0.9); Monocytes % 4.7 %; Neutrophils # 1.76 10^3/uL (1.8-7.7); Neutrophils % 75.6 %; Nucleated Red Blood Cells % 0 %; Red Blood Count 3.31 10^6/uL (4.1-5.3); Red Cell Distribution Width 20.8 % (12.1-15.1); White Blood Count 2.3 10^3/uL (4.0-10.0)
--- NOTE | 2022-10-16 20:55 | ED_ITS ---
HPI - Fever General: Chief Complaint: Fever Stated Complaint: fever cancer pt sent by [facility] Time Seen by Provider: 10/16/22 20:28 Source: patient Mode of arrival: ambulatory Limitations: no limitations History of Present Illness: 72-year-old female has a history of AML in remission she still gets monthly chemo states she finished chemo last week states that started having a cough on Saturday and states that she is spiked a fever today of 101. She had no vomiting no diarrhea she denies any chest pain. She denies any increased weakness she has had some chills. Associated symptoms: Reports chills; Deny abdominal pain, chest pain, diarrhea, dysuria, headache(s), nausea or vomiting Review of Systems Const: Reports: fever(s) and chills; Denies: body aches Eyes: Denies: eye discomfort ENMT: Denies: throat pain or dental pain Card: Denies: chest pain Resp: Reports: non-productive cough; Denies: dyspnea GI: Denies: abdominal pain, nausea, vomiting or diarrhea : Denies: dysuria Musc: Denies: neck pain or back pain Skin/Breast: Denies: rash Neuro: Denies: headache(s) PFSH ED PFSH: Medical History AML (acute myeloblastic leukemia) Anxiety and depression COVID-19 Hyperlipidemia Lichen sclerosus Diagnosed in January 2019 with a vulvar biopsy--- symptoms well controlled with consistent clobetasol use Ulcerative colitis She has had ulcerative colitis since about the age of 32. She is currently not requiring any medication for it. Surgical History Hx of cataract surgery Bilateral cataract excisions Port-A-Cath in place (09/04/21) right IJ S/P section Performed in the 1970s via vertical midline infraumbilical incision Family History Sister Hyperlipidemia Hypertension Vulvar cancer Brother Hyperlipidemia Hypertension Diabetes Father Stroke Denies family history of Cervical cancer Colon cancer Ovarian cancer DVT (deep venous thrombosis) Breast cancer Pulmonary embolism Uterine cancer Social History Smoking and tobacco status: never smoked Substance/Drug Use: unknown Physical Exam Const: COMMON NORMALS: no acute distress, patient oriented x3 and healthy appearing HENMT: COMMON NORMALS: normocephalic and atraumatic HEAD & SCALP: normocephalic and atraumatic Eye: COMMON NORMALS: Equal, round and reactive pupils present and EOMs intact bilaterally PUPIL: Yes Equal, round and reactive pupils present Neck/C-Spine: COMMON NORMALS: full ROM, supple and no meningeal signs Chest: COMMONS NORMALS: normal inspection of the chest and normal palpation of entire chest wall Resp: COMMON NORMALS: normal respiratory effort, No retractions, No use of accessory muscles and clear to auscultation bilaterally AUSCULTATION: clear to auscultation bilaterally Cardio: COMMON NORMALS: regular rate, regular rhythm and No murmurs present (Cardio) RATE: regular rate RHYTHM: regular rhythm GI: COMMON NORMALS: Normal to inspection, nondistended, normoactive bowel sounds present, Soft to palpation, non-tender and no masses PALPATION: Yes Soft to palpation Extremity: COMMON NORMALS: normal to inspection and full ROM Neuro: COMMON NORMALS: patient oriented x3, moves all extremities and no focal motor deficits MENINGEAL SIGNS: Yes no meningeal signs Psych: COMMON NORMALS: mental status grossly normal, Normal thought process present and cooperative THOUGHT PROCESS: Normal thought process present Skin: COMMON NORMALS: no rashes or lesions noted and no wounds GENERAL SKIN EXAM: no rashes or lesions noted Course Vital Signs: Vital signs: Vital Signs Temperature 101.0 F H 10/16/22 20:10 Pulse Rate 80 10/16/22 20:10 Respiratory Rate 18 10/16/22 20:10 Blood Pressure 160/69 10/16/22 20:10 Pulse Oximetry 96 10/16/22 20:10 Oxygen Delivery Me thod Room Air 10/16/22 20:10 MDM - Fever Medical Decision Making Patient presents here with a fever she does have a history of AML she is on chemo she does have some neutropenia along with thrombocytopenia her thrombocytopenia is chronic spoke to hospitalist will admit for IV antibiotics for neutropenic fever. Lab Data 10/16/22 20:45 10/16/22 20:45 Radiology Impressions Chest X-Ray 10/16/22 20:06 IMPRESSION: Negative for infiltrate Laboratory Results WBC 2.3 10^3/uL (4.0-10.0) L 10/16/22 20:45 RBC 3.31 10^6/uL (4.1-5.3) L 10/16/22 20:45 Hgb 10.9 g/dL (11.5-15.3) L 10/16/22 20:45 Hct 33.6 % (37.0-47.0) L 10/16/22 20:45 MCV 101.5 fl (81-99) H 10/16/22 20:45 MCH 32.9 pg (28.0-34.0) 10/16/22 20:45 MCHC 32.4 g/dL (30.0-36.0) 10/16/22 20:45 RDW 20.8 % (12.1-15.1) H 10/16/22 20:45 Plt Count 29 10^3/cmm (130-400) L 10/16/22 20:45 MPV 9.7 fL (7.4-10.4) 10/16/22 20:45 Neut % (Auto) 75.6 % 10/16/22 20:45 Lymph % (Auto) 18.9 % 10/16/22 20:45 [place] % (Auto) 4.7 % 10/16/22 20:45 Eos % (Auto) 0.4 % 10/16/22 20:45 Baso % (Auto) 0.0 % 10/16/22 20:45 Neut # (Auto) 1.76 10^3/uL (1.8-7.7) L 10/16/22 20:45 Lymph # (Auto) 0.4 10^3/uL (0.8-4.8) L 10/16/22 20:45 Swift # (Auto) 0.1 10^3/uL (0.2-0.9) L 10/16/22 20:45 Eos # (Auto) 0.0 10^3/uL (0.0-0.8) 10/16/22 20:45 Baso # (Auto) 0.0 10^3/uL (0.0-0.1) 10/16/22 20:45 Nucleated RBC % (auto) 0 % 10/16/22 20:45 Nucleated RBCs # 0.0 /100WBC 10/16/22 20:45 Sodium 135 mmol/L (136-145) L 10/16/22 20:45 Potassium 4.0 mmol/L (3.5-5.1) 10/16/22 20:45 Chloride 100 mmol/L (98-107) 10/16/22 20:45 Carbon Dioxide 25 mmol/L (22-29) 10/16/22 20:45 Anion Gap 14.0 (5-19) 10/16/22 20:45 BUN 10 mg/dL (8-23) 10/16/22 20:45 Creatinine 0.5 mg/dL (0.5-0.9) 10/16/22 20:45 GFR Calculation 122.0 mL/min (90-130) 10/16/22 20:45 Glucose 87 mg/dL (65-115) 10/16/22 20:45 Calculated Osmolality 278 mOsm/kg (285-295) L 10/16/22 20:45 Lactic Acid 1.0 mmol/L (0.5-2.2) 10/16/22 20:45 Calcium 8.9 mg/dL (8.5-10.5) 10/16/22 20:45 Total Bilirubin 0.6 mg/dL (0.15-1.2) 10/16/22 20:45 AST 31 U/L (0-32) 10/16/22 20:45 ALT 15 U/L (0-33) 10/16/22 20:45 Alkaline Phosphatase 109 U/L (35-105) H 10/16/22 20:45 Total Protein 5.6 g/dL (6.6-8.7) L 10/16/22 20:45 Albumin 4.2 g/dL (3.5-5.2) 10/16/22 20:45 Globulin 1.4 g/dL (1.3-4.6) 10/16/22 20:45 Urine Color Yellow (Yellow) 10/16/22 21:42 Urine Appearance Clear (CLEAR) 10/16/22 21:42 Urine pH 5 (5-7) 10/16/22 21:42 Ur Specific [place] 1.010 (1.005-1.030) 10/16/22 21:42 Urine Protein Neg (Negative) 10/16/22 21:42 Urine Glucose (UA) Norm (Normal) 10/16/22 21:42 Urine Ketones Negative (Negative) 10/16/22 21:42 Urine Blood 2+ (Negative) H 10/16/22 21:42 Urine Nitrate Negative (Negative) 10/16/22 21:42 Urine Bilirubin Neg (Negative) 10/16/22 21:42 Urine Urobilinogen 1 mg/dL (Negative) H 10/16/22 21:42 Ur Leukocyte Esterase Trace (Negative) H 10/16/22 21:42 Discharge Plan Discharge Patient Disposition: Admitted As Inpatient Clinical Impression: Fever and neutropenia, Thrombocytopenia Condition: Stable Prescriptions: No Action acetaminophen [Tylenol Extra Strength] 500 mg tablet 500 mg PO Q6H PRN (Reason: Pain) losartan 50 mg tablet 50 mg PO BID senna 8.6 mg capsule 8.6 mg PO DAILY PRN levofloxacin 500 mg tablet 500 mg PO DAILY PRN fluticasone furoate-vilanterol [Breo Ellipta] 100-25 mcg/dose blister with device 1 inh inhalation DAILY PRN clobetasol 0.05 % cream 1 applic topical .weekly Qty: 30 1RF Rx Instructions: Apply to affected area escitalopram oxalate [Lexapro] 20 mg tablet 20 mg PO DAILY Qty: 30 0RF lorazepam 0.5 mg tablet 0.5 mg PO TID PRN (Reason: nausea and vomiting) Qty: 30 2RF Rx Instructions: 1 or 2 tabs q 6 hours as needed for SEVERE nausea/vomiting or anxiety/insomnia tramadol 50 mg tablet 50 mg PO BID PRN (Reason: pain) Qty: 60 0RF posaconazole [Noxafil] 100 mg tablet,delayed release (DR/EC) 200 mg PO QAM Qty: 60 2RF acyclovir 400 mg tablet 400 mg PO TID@09,14,20 Qty: 90 3RF potassium chloride 10 mEq capsule, extended release 10 meq PO DAILY Qty: 90 3RF Venclexta 100 mg tablet 100 mg PO DAILY Qty: 7 0RF Rx Instructions: 7 days on, then off for 49 days lidocaine-prilocaine 2.5-2.5 % cream 1 applic topical DIRECTED Qty: 30 3RF Rx Instructions: apply 45 minutes prior to port access Lactobacillus acidophilus Tablet 100 mmu cells PO DAILY biotin 10,000 mcg Capsule 10,000 mcg PO DAILY ondansetron 8 mg Tablet,Disintegrating 8 mg PO Q6H PRN (Reason: Nausea And Vomiting) Qty: 30 1RF Referrals: Mercy Rosales MD [Primary Care Provider] - Coding Level of Care Code ED [employer]
[2022-10-16 21:09] LABS: Albumin Level 4.2 g/dL (3.5-5.2); Alkaline Phosphatase 109 U/L (35-105); Blood Urea Nitrogen 10 mg/dL (8-23); Calcium 8.9 mg/dL (8.5-10.5); Carbon Dioxide 25 mmol/L (22-29); Chloride 100 mmol/L (98-107); Globulin 1.4 g/dL (1.3-4.6); Glucose 87 mg/dL (65-115); Osmolality Calculated 278 mOsm/kg (285-295); Sodium 135 mmol/L (136-145); Total Bilirubin 0.6 mg/dL (0.15-1.2); Total Protein 5.6 g/dL (6.6-8.7)
[2022-10-16 21:12] LABS: Alanine Aminotransferase 15 U/L (0-33); Aspartate Amino Transferase 31 U/L (0-32)
[2022-10-16 21:37] LABS: Platelet Count 29 10^3/cmm (130-400)
[2022-10-16 21:58] LABS: Urine Appearance Clear (CLEAR); Urine Color Yellow (Yellow)
[2022-10-16 21:59] LABS: pH Urine 5 (5-7)
[2022-10-16 22:00] LABS: Add Urine Microscopic? YES; Bilirubin Urine Neg (Negative); Blood Urine 2+ (Negative); Glucose Urine UA Norm (Normal); Ketones Urine Negative (Negative); Leukocyte Esterase Urine Trace (Negative); Nitrate Urine Negative (Negative); Protein Urine Neg (Negative); Urobilinogen Urine 1 mg/dL (Negative)
[2022-10-16 22:01] LABS: RBC Urine 0-4 /hpf (0-2)
--- NOTE | 2022-10-16 22:01 | PM.HP ---
Providers/Chief Complaint Admitting Physician: Smith Sutton MD Primary Care Provider: Mercy Rosales MD Chief Complaint: fever cancer pt sent by [facility] History of Present Illness Eulalia Kaplan is a 72 year old female with known AML in remission but currently receiving continue chemotherapy with last treatment of decitabine and venetoclax on October 08 presents with fever noted at home today. She has had a cough, nonproductive. Temperature was 101.0 ?F on arrival to the emergency department. She denies any pain in her chest, abdomen. She has had no vomiting or diarrhea. She reports no ill contacts at home. She reports no new surgeries. She does have a port, which has been in for quite some time. There have been no issues with the port. She is not short of breath. On clarifying some of her medications, she is on positive, resolved for a distant history, several years ago, of fungal pneumonia. Review of Systems General: Reports: 10 or more systems reviewed and unremarkable except in HPI and below Const: Reports: fever(s) and chills Card: Denies: chest pain Resp: Reports: non-productive cough Medications/Allergies Home Medications Medication Instructions Recorded Confirmed Last Taken Type acetaminophen 500 mg tablet 500 mg PO Q6H PRN Pain 12/13/20 10/08/22 08/11/21 History (Tylenol Extra Strength) losartan 50 mg tablet 50 mg PO BID 08/08/21 10/08/22 09/03/21 History Lactobacillus acidophilus 100 mmu cells PO DAILY 09/01/21 10/08/22 09/03/21 History biotin 10,000 mcg capsule 10,000 mcg PO DAILY 09/01/21 10/08/22 09/03/21 History fluticasone furoate 100 1 inh inhalation DAILY PRN 10/23/21 10/08/22 Unknown History mcg-vilanterol 25 mcg/dose inhalation powder (Breo Ellipta) clobetasol 0.05 % topical cream 1 applic topical .weekly #30 grams 12/06/21 10/08/22 Unknown Rx escitalopram oxalate 20 mg tablet 20 mg PO DAILY #30 tabs 02/20/22 10/08/22 Unknown Rx (Lexapro) lorazepam 0.5 mg tablet 0.5 mg PO TID PRN nausea and 03/12/22 10/08/22 Unknown Rx vomiting #30 tabs tramadol 50 mg tablet 50 mg PO BID PRN pain #60 tabs 04/05/22 10/08/22 Unknown Rx ondansetron 8 mg disintegrating 8 mg PO Q6H PRN Nausea And 05/07/22 10/08/22 Unknown Rx tablet Vomiting #30 tabs sennosides 8.6 mg capsule (senna) 8.6 mg PO DAILY PRN 06/11/22 10/08/22 Unknown History posaconazole 100 mg tablet,delayed 200 mg PO QAM #60 tabs 07/11/22 10/08/22 Unknown Rx release (Noxafil) acyclovir 400 mg tablet 400 mg PO TID@,, #90 tabs 07/25/22 10/08/22 Unknown Rx potassium chloride 10 mEq 10 meq PO DAILY #90 caps 09/26/22 10/08/22 Unknown Rx capsule,extended release venetoclax 100 mg tablet 100 mg PO DAILY #7 tabs 09/27/22 10/08/22 Unknown Rx (Venclexta) levofloxacin 500 mg tablet 500 mg PO DAILY PRN 10/08/22 Unknown History lidocaine-prilocaine 2.5 %-2.5 % 1 applic topical DIRECTED #30 10/15/22 Unknown Rx topical cream grams Allergies Allergy/AdvReac Type Severity Reaction Status Date / Time adhesive Allergy Unknown Itching/Red Verified 10/08/22 12:50 ness amoxicillin Allergy Rash, Verified 10/08/22 12:50 tongue swelling Penicillins Allergy Rash/tongue Verified 10/08/22 12:50 swelling Sulfa (Sulfonamide Allergy Rash Verified 10/08/22 12:50 Antibiotics) vancomycin AdvReac Mild ADR-Itching Verified 10/08/22 12:50 PFSH Acute PFSH: Medical History AML (acute myeloblastic leukemia) Anxiety and depression COVID-19 Hyperlipidemia Lichen sclerosus Diagnosed in January 2019 with a vulvar biopsy--- symptoms well controlled with consistent clobetasol use Ulcerative colitis She has had ulcerative colitis since about the age of 32. She is currently not requiring any medication for it. Surgical History Hx of cataract surgery Bilateral cataract excisions Port-A-Cath in place (09/04/21) right IJ S/P section Performed in the via vertical midline infraumbilical incision Family History Sister Hyperlipidemia Hypertension Vulvar cancer Brother Hyperlipidemia Hypertension Diabetes Father Stroke Denies family history of Cervical cancer Colon cancer Ovarian cancer DVT (deep venous thrombosis) Breast cancer Pulmonary embolism Uterine cancer Social History Smoking and tobacco status: never smoked Substance/Drug Use: unknown Vitals/I&O/Wt Last Vital Signs Temp 101.0 F H 10/16/22 20:10 Pulse 80 10/16/22 20:10 Resp 18 10/16/22 20:10 BP 160/69 10/16/22 20:10 Pulse Ox 96 10/16/22 20:10 O2 Del Method Room Air 10/16/22 20:10 Weight last 48 hrs Weight 58.967 kg Physical Exam Narrative: General exam is a white female, with occasional cough. HEENT: Atraumatic and normocephalic. Oropharynx clear. No evidence of thrush. Neck is supple no lymphadenopathy or thyromegaly Cardiovascular regular rate and rhythm without murmur. Port noted left chest, no overlying erythema. Lungs clear no wheezing or crackles Abdomen is soft with positive bowel sounds. No obvious organomegaly exam is deferred Extremities no cyanosis clubbing edema, cap refill brisk Skin no rash Neuro no focal deficits Data 10/16/22 20:45 10/16/22 20:45 Other Labs: Liver function tests are normal, with the exception of alk phos of 109 Calcium 8.9 Urinalysis 5-10 white blood cells, 0-4 reds, no bacteria, negative nitrate COVID PCR pending, respiratory panel pending Chest x-ray by my read demonstrates port, no obvious infiltrate Blood cultures have been obtained. I have ordered a urine culture. Micro: Microbiology 10/16/22 20:55 Blood Culture - Preliminary Blood SPECIMEN COLLECTED 10/16/22 20:45 Blood Culture - Preliminary Blood SPECIMEN COLLECTED A&P Assessment and plan (1) Fever: Patient presents with fever and neutropenia. Neutrophil count is not less than 500, currently 1760 but this has been rapidly decreasing since her treatment and was 2490 yesterday. Platelet count is also decreased from 42-29. Only symptom is cough. Initiate broad-spectrum antibiotics with linezolid and cefepime Continue her acyclovir, posaconazole Urine and blood cultures have been drawn For improvement CBC CMP daily Hydration Await respiratory panel including COVID PCR MRSA PCR. Reverse isolation Qualifiers: Fever type: due to other condition Qualified Code(s): R50.81 - Fever presenting with conditions classified elsewhere (2) Fever and neutropenia: See above (3) Cough: See above For any worsening consider repeat chest x-ray or CT chest (4) UTI (urinary tract infection): Results equivocal. Check urine culture (5) Thrombocytopenia: Continue to monitor platelets daily. Consider transfusion of less than 20,000, or active bleeding (6) Anemia: Currently hemoglobin 10.9. CBC daily. No need for transfusion currently. (7) Acute myeloblastic leukemia, in remission: Last chemotherapy treatment October 08. Followed by Dr. Bradshaw. Plan Multiple other medical problems as outlined in past medical history Full code currently SCDs for DVT prophylaxis. No pharmacologic prophylaxis secondary to thrombocytopenia Attestations Medical Necessity Statement*: Will need greater than 2 midnight stay for evaluation and treatment of fever and neutropenia Diagnoses Fever R50.81 Fever type: due to other condition Fever and neutropenia D70.9; R50.81 Cough R05.9 UTI (urinary tract infection) N39.0 Thrombocytopenia D69.6 Anemia D64.9 Acute myeloblastic leukemia, in remission C92.01 Time Spent (min) 42
[2022-10-16 22:02] LABS: Add Urine Culture? No; Mucus Urine 3+ /hpf; Squamous Epithelial Cell Urine 0-4 /hpf (0-5)
[2022-10-16] MEDS: cefepime 2,000 MG in sodium chloride 0.9% (plus) 50 ML 100 MG IV (22:09)
[2022-10-16 22:10] VITALS: BP 154/57; PULSE 75; RESP 18; O2SAT 92
[2022-10-16 22:22] VITALS: TEMP 37.3
--- NOTE | 2022-10-16 22:26 | PC.NURSE ---
Report called to Med-Surg to PRISCILLA Barksdale.
[2022-10-16 22:46] VITALS: BP 155/66; PULSE 71; RESP 16; TEMP 36.9; O2SAT 96
[2022-10-16 22:54] VITALS: BP 155/66; PULSE 71; RESP 16; TEMP 36.9; O2SAT 96
[2022-10-16] MEDS: linezolid premix 600 MG/300 ML PREMIX 300 MG IV (23:04)
[2022-10-16] MEDS: sodium chloride 0.9% 1,000 ML 75 ML IV (23:04)
[2022-10-16 23:34] LABS: Adenovirus Not Detected (NOT DETECT); Chlamydia Pneumoniae Not Detected (NOT DETECT); Coronavirus 229E,HKU1,NL63,OC4 Not Detected (NOT DETECT); Human Metapneumovirus Not Detected (NOT DETECT); Human Rhinovirus/Enterovirus Not Detected (NOT DETECT); Influenza A Not Detected (NOT DETECT); Influenza A H1 Not Detected (NOT DETECT); Influenza A H1-2009 Not Detected (NOT DETECT); Influenza A H3 Not Detected (NOT DETECT); Influenza B Not Detected (NOT DETECT); Mycoplasma Pneumoniae Not Detected (NOT DETECT); Parainfluenza Virus Type 1 Not Detected (NOT DETECT); Parainfluenza Virus Type 2 Not Detected (NOT DETECT); Parainfluenza Virus Type 3 Detected (NOT DETECT); Parainfluenza Virus Type 4 Not Detected (NOT DETECT); Respiratory Syncytial Virus A Not Detected (NOT DETECT); Respiratory Syncytial Virus B Not Detected (NOT DETECT); SARS-COV-2 Not Detected (NOT DETECT)
[2022-10-17] VITALS (11 sets, daily range): BP systolic 125–170; BP diastolic 45–72; PULSE 58–85; RESP 14–20; TEMP 36.4–39.3; O2SAT 88–94
[2022-10-17] MEDS: ondansetron 2 mg/ML SDV 2 mL 4 MG IVP ×2 (00:55→10:03)
[2022-10-17] MEDS: acetaminophen 325 mg Tablet 650 MG PO (04:02)
[2022-10-17 04:43] LABS: Lymphocytes # 0.3 10^3/uL (0.8-4.8); Mean Corpuscular HGB Conc 32.3 g/dL (30.0-36.0); Mean Corpuscular Hemoglobin 32.7 pg (28.0-34.0); Mean Corpuscular Volume 101.3 fl (81-99); Monocytes # 0.1 10^3/uL (0.2-0.9); Monocytes % 4.6 %; Neutrophils # 1.53 10^3/uL (1.8-7.7); Neutrophils % 78.9 %; Nucleated Red Blood Cells % 0 %; Red Blood Count 3.06 10^6/uL (4.1-5.3); Red Cell Distribution Width 20.7 % (12.1-15.1); White Blood Count 1.9 10^3/uL (4.0-10.0)
[2022-10-17 05:04] LABS: Alanine Aminotransferase 15 U/L (0-33); Albumin Level 3.9 g/dL (3.5-5.2); Alkaline Phosphatase 87 U/L (35-105); Anion Gap 13.8 (5-19); Aspartate Amino Transferase 26 U/L (0-32); Blood Urea Nitrogen 8 mg/dL (8-23); Calcium 8.3 mg/dL (8.5-10.5); Carbon Dioxide 24 mmol/L (22-29); Chloride 101 mmol/L (98-107); Globulin 2.3 g/dL (1.3-4.6); Glucose 127 mg/dL (65-115); Magnesium 1.8 mg/dL (1.7-2.3); Osmolality Calculated 280 mOsm/kg (285-295); Potassium 3.8 mmol/L (3.5-5.1); Sodium 135 mmol/L (136-145); Total Bilirubin 0.8 mg/dL (0.15-1.2); Total Protein 6.2 g/dL (6.6-8.7)
[2022-10-17 05:20] LABS: Slide Review Slide Review Perform
[2022-10-17 05:21] LABS: Platelet Count 23 10^3/cmm (130-400)
[2022-10-17] MEDS: escitalopram 10 mg Tablet 20 MG PO (08:16)
[2022-10-17] MEDS: losartan 50 mg Tablet PO ×2 (08:16→17:07)
[2022-10-17] MEDS: acyclovir 400 mg Tablet PO ×3 (08:16→20:23)
--- NOTE | 2022-10-17 08:32 | PC.PHAR ---
pt states she takes care of her own medications-pt states she just started taking the z-pac filled 10/16/22 5d/s-pt states she takes levofloxacin 500mg daily prn -pt states she has a breo ellipta that she uses prn ext shows last filled 04/09/22-pt states she gets chemo 5 days a week every 8 weeks pt states just got her chemo last saturday-notes are made in the pharmacy comment
[2022-10-17] MEDS: cefepime 2,000 MG in sodium chloride 0.9% (plus) 50 ML 100 MG IV ×2 (09:32→22:12)
[2022-10-17] MEDS: linezolid premix 600 MG/300 ML PREMIX 300 MG IV ×2 (10:10→23:27)
[2022-10-17] MEDS: dexamethasone 10 mg/mL INJ IVP (13:13)
[2022-10-17] MEDS: diphenhydrAMINE 50 mg/mL SDV 1mL 25 MG IVP (13:13)
[2022-10-17] MEDS: sodium chloride 0.9% 1,000 ML 75 ML IV (17:06)
--- NOTE | 2022-10-17 18:02 | P.PN_ITS ---
Subjective Subjective: Patient was seen and examined this morning, she was complaining of nausea and is also having vomiting Continue to spike temperature, platelet count has fallen down to 23,000, neutrophil count has fallen down to 1.53 as compared to admission neutrophil count of 1.76, also has lymphopenia, white blood cell count is also trending down, for now we will plan to transfuse her 1 unit of platelet, monitor platelet count, monitor for any active bleeding, currently she has no petechiae purpura, continue broad-spectrum antibiotics, currently she has been continued on her home prophylactic dose of acyclovir and posa.Monitor blood culture urine culture. she is definitely at risk for IFI and host of other infections, given her inherent immunocompromise status. Patient is expressed a desire to transfer to [facility], in case of any further worsening. Currently low threshold for transfer. Medications: Medication Review Details: Generic Name Dose Route Start Last Admin Trade Name Freq PRN Reason Stop Dose Admin Acetaminophen 650 mg 10/16/22 22:46 10/17/22 04:02 Acetaminophen 32 5 Mg Tablet PO 650 mg Q6H PRN Administration Mild/Mod Pain Or Temp >/= 101 Acyclovir 400 mg 10/17/22 09:00 10/17/22 13:29 Acyclovir 400 Mg Tablet PO 400 mg TID@09,14,20 HOLLY Administration Escitalopram Oxala te 20 mg 10/17/22 09:00 10/17/22 08:16 Escitalopram 10 Mg Tablet PO 20 mg DAILY HOLLY Administration Sodium Chloride 1,000 mls @ 75 ml s/hr 10/16/22 22:46 10/17/22 17:06 Sodium Chloride 0.9% IV 75 mls/hr .[id number] HOLLY Administration Linezolid 600 mg in 300 mls @ 300 mls/hr 10/17/22 11:00 10/17/22 10:10 Zyvox Premix IV 300 mls/hr Q12H HOLYL Administration Protocol Cefepime HCl 2,000 mg/ Sodium 50 mls @ 100 mls/ hr 10/17/22 10:00 10/17/22 09:32 Chloride IV 100 mls/hr Q12H HOLLY Administration Protocol Losartan Potassium 50 mg 10/17/22 09:00 10/17/22 17:07 Losartan 50 Mg T ablet PO 50 mg BID HOLLY Administration Non-Formulary Medi cation 200 mg 10/17/22 06:00 10/17/22 05:36 Posaconazole [No xafil] PO 200 mg QAM HOLLY Administration Vitals/I&O/Wt Last Vital Signs Temp 100.0 F H 10/17/22 15:20 Pulse 82 10/17/22 15:20 Resp 16 10/17/22 15:20 BP 144/45 10/17/22 17:07 Pulse Ox 93 10/17/22 15:20 O2 Del Method Nasal Cannula 10/17/22 15:20 O2 Flow Rate 2 10/17/22 03:52 10/17/22 10/17/22 10/17/22 06:59 14:59 22:59 Intake Total 350 / 350 1558 / 1558 360 / 1918 Balance 350 / 350 1558 / 1558 360 / 1918 Weight last 48 hrs Weight 58.967 kg Physical Exam HENMT: COMMON NORMALS: normocephalic and atraumatic HEAD & SCALP: normocephalic and atraumatic Resp: COMMON NORMALS: clear to auscultation bilaterally AUSCULTATION: clear to auscultation bilaterally Cardio: COMMON NORMALS: regular rate, regular rhythm, S1 normal heart sound present, S2 normal heart sound present, No gallops present (Cardio), No murmurs present (Cardio), No rub (Cardio) and Peripheral pulses 2+ throughout RATE: regular rate RHYTHM: regular rhythm HEART SOUNDS: S1 normal heart sound present and S2 normal heart sound present PERIPHERAL PULSES: Peripheral pulses 2+ throughout GI: COMMON NORMALS: Normal to inspection, nondistended, normoactive bowel sounds present, Soft to palpation, non-tender, No hepatosplenomegaly present and no masses AUSCULTATION: Yes normoactive bowel sounds PALPATION: Yes Soft to palpation and Yes No hepatosplenomegaly present RECTAL EXAM: deferred Extremity: COMMON NORMALS: no clubbing, cyanosis or edema and no pedal edema Data 10/17/22 04:10 10/17/22 04:10 Micro: Microbiology 10/16/22 23:15 MRSA Culture - Final Nose 10/16/22 20:55 Blood Culture - Preliminary Blood SPECIMEN COLLECTED 10/16/22 20:45 Blood Culture - Preliminary Blood SPECIMEN COLLECTED A&P Assessment and plan (1) Fever: Patient presents with fever and neutropenia. Neutrophil count is not less than 500, currently 1760 but this has been rapidly decreasing since her treatment and was 2490 yesterday. Platelet count is also decreased from 42-29. Only symptom is cough. Initiate broad-spectrum antibiotics with linezolid and cefepime Continue her acyclovir, posaconazole Urine and blood cultures have been drawn For improvement CBC CMP daily Hydration Respiratory viral panel is positive for: Parainfluenza Reverse isolation Qualifiers: Fever type: due to other condition Qualified Code(s): R50.81 - Fever presenting with conditions classified elsewhere (2) Fever and neutropenia: See above (3) Cough: See above For any worsening consider repeat chest x-ray or CT chest (4) UTI (urinary tract infection): Results equivocal. Check urine culture (5) Thrombocytopenia: S/p 1 unit platelet transfusion today Monitor platelet count for now (6) Anemia: Currently hemoglobin 10.9. CBC daily. No need for transfusion currently. (7) Acute myeloblastic leukemia, in remission: Last chemotherapy treatment October 08. Followed by Dr. Bradshaw. Plan Multiple other medical problems as outlined in past medical history Full code currently SCDs for DVT prophylaxis. No pharmacologic prophylaxis secondary to thrombocytopenia Attestations Medical Necessity Statement*: Needs to be in hospital for management of fever, neutropenia, need for IV antibiotics. Coding Level of Care Code Acute Code for [facility] Diagnoses Fever R50.81 Fever type: due to other condition Fever and neutropenia D70.9; R50.81 Cough R05.9 UTI (urinary tract infection) N39.0 Thrombocytopenia D69.6 Anemia D64.9 Acute myeloblastic leukemia, in remission C92.01
[2022-10-18 04:00] VITALS: BP 129/63; PULSE 62; RESP 18; TEMP 37.1; O2SAT 97
[2022-10-18 04:28] LABS: Hematocrit 29.8 % (37.0-47.0); Hemoglobin 9.4 g/dL (11.5-15.3); Lymphocytes # 0.3 10^3/uL (0.8-4.8); Lymphocytes % 16.3 %; Mean Corpuscular HGB Conc 31.5 g/dL (30.0-36.0); Mean Corpuscular Hemoglobin 32.5 pg (28.0-34.0); Mean Corpuscular Volume 103.1 fl (81-99); Mean Platelet Volume 9.2 fL (7.4-10.4); Monocytes # 0.1 10^3/uL (0.2-0.9); Monocytes % 4.7 %; Neutrophils # 1.31 10^3/uL (1.8-7.7); Neutrophils % 76.1 %; Nucleated Red Blood Cells % 0 %; Platelet Count 38 10^3/cmm (130-400); Red Blood Count 2.89 10^6/uL (4.1-5.3); Red Cell Distribution Width 20.7 % (12.1-15.1); White Blood Count 1.7 10^3/uL (4.0-10.0)
[2022-10-18 04:53] LABS: Alanine Aminotransferase 14 U/L (0-33); Albumin Level 3.8 g/dL (3.5-5.2); Alkaline Phosphatase 82 U/L (35-105); Anion Gap 14.1 (5-19); Aspartate Amino Transferase 24 U/L (0-32); Blood Urea Nitrogen 14 mg/dL (8-23); Calcium 9.1 mg/dL (8.5-10.5); Carbon Dioxide 24 mmol/L (22-29); Chloride 107 mmol/L (98-107); Globulin 2.7 g/dL (1.3-4.6); Glomerular Filtration Rate 98.8 mL/min (90-130); Glucose 137 mg/dL (65-115); Osmolality Calculated 295 mOsm/kg (285-295); Potassium 4.1 mmol/L (3.5-5.1); Sodium 141 mmol/L (136-145); Total Bilirubin 0.5 mg/dL (0.15-1.2); Total Protein 6.5 g/dL (6.6-8.7)
[2022-10-18 05:03] LABS: Slide Review Slide Review Perform
[2022-10-18 08:00] VITALS: BP 126/60; PULSE 66; RESP 18; TEMP 36.9; O2SAT 95
[2022-10-18 09:36] VITALS: BP 120/58
[2022-10-18] MEDS: losartan 50 mg Tablet PO ×2 (09:36→17:28)
[2022-10-18] MEDS: acyclovir 400 mg Tablet PO ×3 (09:37→19:34)
[2022-10-18] MEDS: escitalopram 10 mg Tablet 20 MG PO (09:37)
[2022-10-18] MEDS: cefepime 2,000 MG in sodium chloride 0.9% (plus) 50 ML 100 MG IV ×2 (09:37→21:07)
[2022-10-18] MEDS: linezolid premix 600 MG/300 ML PREMIX 300 MG IV ×2 (10:31→22:06)
[2022-10-18 11:05] VITALS: BP 136/57; PULSE 70; RESP 16; TEMP 38; O2SAT 95
--- NOTE | 2022-10-18 11:39 | PC.NURSE ---
Report given to PRISCILLA Sinha.
[2022-10-18] MEDS: sodium chloride 0.9% 1,000 ML 75 ML IV (13:12)
[2022-10-18 15:30] VITALS: BP 135/63; PULSE 69; RESP 18; TEMP 36.7; O2SAT 93
--- NOTE | 2022-10-18 17:59 | PM.PN ---
Subjective Subjective: Patient was seen and examined this morning, continued to have low-grade fever, though it appears that the Fever curve is improving, platelet count s/p 1 unit of transfusion is 38,000, unfortunately neutrophil count has trended down to 1.31 today.Nausea and vomiting has improved, she states that she feels better. Cultures so far has remained negative. If patient continues to spike temperature will have to do uriostegui CT, 2D echo, and other relevant work-up in the quest for source search. Medications: Medication Review Details: Generic Name Dose Route Start Last Admin Trade Name Freq PRN Reason Stop Dose Admin Acetaminophen 650 mg 10/16/22 22:46 10/17/22 04:02 Acetaminophen 32 5 Mg Tablet PO 650 mg Q6H PRN Administration Mild/Mod Pain Or Temp >/= 101 Acyclovir 400 mg 10/17/22 09:00 10/18/22 13:13 Acyclovir 400 Mg Tablet PO 400 mg TID@09,14,20 HOLLY Administration Escitalopram Oxala te 20 mg 10/17/22 09:00 10/18/22 09:37 Escitalopram 10 Mg Tablet PO 20 mg DAILY HOLLY Administration Sodium Chloride 1,000 mls @ 75 ml s/hr 10/16/22 22:46 10/18/22 13:12 Sodium Chloride 0.9% IV 75 mls/hr .[id number] HOLLY Administration Linezolid 600 mg in 300 mls @ 300 mls/hr 10/17/22 11:00 10/18/22 11:45 Zyvox Premix IV Infused Q12H HOLLY Infusion Protocol Cefepime HCl 2,000 mg/ Sodium 50 mls @ 100 mls/ hr 10/17/22 10:00 10/18/22 10:26 Chloride IV Infused Q12H HOLLY Infusion Protocol Losartan Potassium 50 mg 10/17/22 09:00 10/18/22 17:28 Losartan 50 Mg T ablet PO 50 mg BID HOLLY Administration Non-Formulary Medi cation 200 mg 10/17/22 06:00 10/18/22 05:10 Posaconazole [No xafil] PO 200 mg QAM HOLLY Administration Vitals/I&O/Wt Last Vital Signs Temp 98.0 F 10/18/22 15:30 Pulse 69 10/18/22 15:30 Resp 18 10/18/22 15:30 BP 135/63 10/18/22 15:30 Pulse Ox 93 10/18/22 15:30 O2 Del Method Room Air 10/18/22 15:30 O2 Flow Rate 2 10/17/22 20:00 10/18/22 10/18/22 10/18/22 06:59 14:59 22:59 Intake Total 1929 948 / 948 Balance 1929 948 / 948 Weight last 48 hrs Weight 58.967 kg Physical Exam HENMT: COMMON NORMALS: normocephalic and atraumatic HEAD & SCALP: normocephalic and atraumatic Resp: COMMON NORMALS: clear to auscultation bilaterally AUSCULTATION: clear to auscultation bilaterally Cardio: COMMON NORMALS: regular rate, regular rhythm, S1 normal heart sound present, S2 normal heart sound present, No gallops present (Cardio), No murmurs present (Cardio), No rub (Cardio) and Peripheral pulses 2+ throughout RATE: regular rate RHYTHM: regular rhythm HEART SOUNDS: S1 normal heart sound present and S2 normal heart sound present PERIPHERAL PULSES: Peripheral pulses 2+ throughout GI: COMMON NORMALS: Normal to inspection, nondistended, normoactive bowel sounds present, Soft to palpation, non-tender, No hepatosplenomegaly present and no masses AUSCULTATION: Yes normoactive bowel sounds PALPATION: Yes Soft to palpation and Yes No hepatosplenomegaly present RECTAL EXAM: deferred Extremity: COMMON NORMALS: no clubbing, cyanosis or edema and no pedal edema Data 10/18/22 03:46 10/18/22 03:46 Micro: Microbiology 10/16/22 21:42 Urine Culture - Preliminary Urine,Clean Catch 10/16/22 20:55 Blood Culture - Preliminary Blood NEGATIVE TO DATE 10/16/22 20:45 Blood Culture - Preliminary Blood NEGATIVE TO DATE 10/16/22 23:15 MRSA Culture - Final Nose A&P Assessment and plan (1) Fever: Patient presents with fever and neutropenia. Neutrophil count is not less than 500, currently 1760 but this has been rapidly decreasing since her treatment and was 2490 yesterday. Platelet count is also decreased from 42-29. Only symptom is cough. Initiate broad-spectrum antibiotics with linezolid and cefepime Continue her acyclovir, posaconazole Urine and blood cultures have been drawn For improvement CBC CMP daily Hydration Respiratory viral panel is positive for: Parainfluenza Reverse isolation Qualifiers: Fever type: due to other condition Qualified Code(s): R50.81 - Fever presenting with conditions classified elsewhere (2) Fever and neutropenia: See above (3) Cough: See above For any worsening consider repeat chest x-ray or CT chest (4) UTI (urinary tract infection): Results equivocal. Check urine culture (5) Thrombocytopenia: S/p 1 unit platelet transfusion today Monitor platelet count for now (6) Anemia: Currently hemoglobin 10.9. CBC daily. No need for transfusion currently. (7) Acute myeloblastic leukemia, in remission: Last chemotherapy treatment October 08. Followed by Dr. Bradshaw. Plan Multiple other medical problems as outlined in past medical history Full code currently SCDs for DVT prophylaxis. No pharmacologic prophylaxis secondary to thrombocytopenia Attestations Medical Necessity Statement*: Needs to be in hospital for IV antibiotic. Coding Level [facility] Diagnoses Fever R50.81 Fever type: due to other condition Fever and neutropenia D70.9; R50.81 Cough R05.9 UTI (urinary tract infection) N39.0 Thrombocytopenia D69.6 Anemia D64.9 Acute myeloblastic leukemia, in remission C92.01
[2022-10-18 19:34] VITALS: BP 158/68; PULSE 75; RESP 18; TEMP 36.8; O2SAT 94
[2022-10-19] VITALS (8 sets, daily range): BP systolic 144–155; BP diastolic 61–70; PULSE 63–70; RESP 16–18; TEMP 36.7–37.3; O2SAT 90–96
[2022-10-19] MEDS: sodium chloride 0.9% 1,000 ML 75 ML IV (04:02)
[2022-10-19 04:20] LABS: Hematocrit 26.3 % (37.0-47.0); Hemoglobin 8.2 g/dL (11.5-15.3); Lymphocytes # 0.3 10^3/uL (0.8-4.8); Lymphocytes % 27.4 %; Mean Corpuscular HGB Conc 31.2 g/dL (30.0-36.0); Mean Corpuscular Hemoglobin 32.2 pg (28.0-34.0); Mean Corpuscular Volume 103.1 fl (81-99); Monocytes # 0.1 10^3/uL (0.2-0.9); Monocytes % 7.3 %; Nucleated Red Blood Cells % 0 %; Red Blood Count 2.55 10^6/uL (4.1-5.3); Red Cell Distribution Width 21.1 % (12.1-15.1); White Blood Count 1.2 10^3/uL (4.0-10.0)
[2022-10-19 04:32] LABS: Alanine Aminotransferase 15 U/L (0-33); Albumin Level 3.6 g/dL (3.5-5.2); Alkaline Phosphatase 66 U/L (35-105); Anion Gap 12.4 (5-19); Aspartate Amino Transferase 22 U/L (0-32); Blood Urea Nitrogen 11 mg/dL (8-23); Calcium 8.4 mg/dL (8.5-10.5); Carbon Dioxide 26 mmol/L (22-29); Chloride 107 mmol/L (98-107); Globulin 2.2 g/dL (1.3-4.6); Glomerular Filtration Rate 157.8 mL/min (90-130); Glucose 100 mg/dL (65-115); Osmolality Calculated 293 mOsm/kg (285-295); Potassium 3.4 mmol/L (3.5-5.1); Sodium 142 mmol/L (136-145); Total Bilirubin 0.5 mg/dL (0.15-1.2); Total Protein 5.8 g/dL (6.6-8.7)
[2022-10-19 04:55] LABS: Slide Review Slide Review Perform
[2022-10-19 04:56] LABS: Platelet Count 23 10^3/cmm (130-400)
[2022-10-19 04:57] LABS: Neutrophils # 0.72 10^3/uL (1.8-7.7)
[2022-10-19] MEDS: acyclovir 400 mg Tablet PO ×3 (08:24→21:01)
[2022-10-19] MEDS: escitalopram 10 mg Tablet 20 MG PO (08:24)
[2022-10-19] MEDS: losartan 50 mg Tablet PO ×2 (08:24→17:29)
[2022-10-19] MEDS: potassium chloride ER 20 mEq Tablet PO (08:24)
[2022-10-19] MEDS: cefepime 2,000 MG in sodium chloride 0.9% (plus) 50 ML 100 MG IV ×2 (09:25→21:00)
[2022-10-19] MEDS: linezolid premix 600 MG/300 ML PREMIX 300 MG IV ×2 (10:30→22:05)
--- NOTE | 2022-10-19 10:42 | PC.SOCIAL ---
Pg 2 IMM Explained to pt Pg 2 IMM. No questions voiced. Provided pt a copy. Initialed, dated, & timed a copy & placed in chart.
[2022-10-19] MEDS: ondansetron 2 mg/ML SDV 2 mL 4 MG IVP (11:36)
--- NOTE | 2022-10-19 13:09 | P.TS_ITS ---
Transfer Summary Providers Date of Admission: 10/16/22 22:12 Date of Discharge/Transfer: 10/19/22 Attending Provider at Admission: Smith Sutton MD Attending Provider at Transfer: Aakash Irizarry MD Primary Care Provider: Mercy Rosales MD Transfer Plans: Anticipated date of transfer: 10/19/22 . Diagnoses at Discharge Discharge Diagnosis (1) Fever: Status: Acute Qualifiers: Fever type: due to other condition Qualified Code(s): R50.81 - Fever presenting with conditions classified elsewhere (2) Fever and neutropenia: Status: Acute (3) Cough: Status: Acute (4) UTI (urinary tract infection): Status: Acute (5) Thrombocytopenia: Status: Acute (6) Anemia: Status: Acute (7) Acute myeloblastic leukemia, in remission: Status: Acute Reason for Visit Reason for Visit fever cancer pt sent by [facility] Hospital Course 72 year old female with known AML in remission but currently receiving continue chemotherapy with last treatment of decitabine and venetoclax on October 08 came in with chief complaint of fever and nonproductive cough, upon arrival lab works was done, which showed, low neutrophil count as well as significant thrombocytopenia, cultures were drawn urine culture was done, patient was started on broad-spectrum antibiotics, currently on Zyvox and cefepime, she was continued on her home dose of acyclovir as well as posaconazole, blood cultures and urine culture has so far remain negative, x-ray chest: Was negative for infiltrates, fever curve is currently improving, last noted Tmax was 100.4 on 10/18/22 at around 11 AM, during the hospital stay patient did received 1 bag of platelet as of platelet count had down trended to 23,000, initially her platelet count improved to 38,000, but today it again has trended down, white blood cell count as well as neutrophil count continue to downtrend, most recent white blood cell count today was 1.2, neutrophil count is 0.72, hemoglobin 8.2, hematocrit 26.3. Patient currently has no active bleeding, has no petechiae no purpura.Patient currently expressed her desire to be transferred to [facility] as she has received care over there in the past, and previously shen Licea has taken care of, he is an oncologist at [facility], attempt is being made to transfer her, currently she has been accepted by , she is awaiting bed. Physical Exam HENMT: COMMON NORMALS: normocephalic and atraumatic HEAD & SCALP: normocephalic and atraumatic Resp: COMMON NORMALS: clear to auscultation bilaterally AUSCULTATION: clear to auscultation bilaterally Cardio: COMMON NORMALS: regular rate, regular rhythm, S1 normal heart sound present, S2 normal heart sound present, No gallops present (Cardio), No murmurs present (Cardio), No rub (Cardio) and Peripheral pulses 2+ throughout RATE: regular rate RHYTHM: regular rhythm HEART SOUNDS: S1 normal heart sound present and S2 normal heart sound present PERIPHERAL PULSES: Peripheral pulses 2+ throughout GI: COMMON NORMALS: Normal to inspection, nondistended, normoactive bowel sounds present, Soft to palpation, non-tender, No hepatosplenomegaly present and no masses AUSCULTATION: Yes normoactive bowel sounds PALPATION: Yes Soft to palpation and Yes No hepatosplenomegaly present RECTAL EXAM: deferred Extremity: COMMON NORMALS: no clubbing, cyanosis or edema and no pedal edema TS Data Studies Completed and Pending Pending at discharge Category Date Time Status Blood Culture Stat Lab 10/16/22 20:55 Results CBC Auto Diff [Complete Blood Count w/Auto] AM LABS Lab 10/20/22 04:00 Ordered CBC Auto Diff [Complete Blood Count w/Auto] Timed Lab 10/19/22 14:00 Ordered CMP [Comprehensive Metabolic Panel] AM LABS Lab 10/20/22 04:00 Ordered Fibrinogen AM LABS Lab 10/20/22 04:00 Ordered PT [Prothrombin Time INR] AM LABS Lab 10/20/22 04:00 Ordered PTT [Partial Thromboplastin Time] AM LABS Lab 10/20/22 04:00 Ordered Sputum Culture and Gram Stain Routine Lab 10/19/22 09:00 Received Urine Culture Stat Lab 10/16/22 21:42 Results Labs from last 24 hours 10/19/22 10/19/22 03:50 03:50 WBC 1.2 L RBC 2.55 L Hgb 8.2 L Hct 26.3 L MCV 103.1 H MCH 32.2 MCHC 31.2 RDW 21.1 H Plt Count 23 L* D MPV TNP Neut % (Auto) 58.0 Lymph % (Auto) 27.4 Atkinson % (Auto) 7.3 Eos % (Auto) 0.0 Baso % (Auto) 0.0 Neut # (Auto) 0.72 L* Lymph # (Auto) 0.3 L Atkinson # (Auto) 0.1 L Eos # (Auto) 0.0 Baso # (Auto) 0.0 Nucleated RBC % (auto) 0 Nucleated RBCs # 0.0 Sodium 142 Potassium 3.4 L Chloride 107 Carbon Dioxide 26 Anion Gap 12.4 BUN 11 Creatinine 0.4 L GFR Calculation 157.8 H Glucose 100 Calculated Osmolality 293 Calcium 8.4 L Total Bilirubin 0.5 AST 22 ALT 15 Alkaline Phosphatase 66 Total Protein 5.8 L Albumin 3.6 Globulin 2.2 Completed Studies During Hospitalization Category Date Time Status XR chest 1V portable [id number] Stat Exams 10/16/22 20:06 Completed Laboratory Last Values WBC 1.2 10^3/uL (4.0-10.0) L 10/19/22 03:50 RBC 2.55 10^6/uL (4.1-5.3) L 10/19/22 03:50 Hgb 8.2 g/dL (11.5-15.3) L 10/19/22 03:50 Hct 26.3 % (37.0-47.0) L 10/19/22 03:50 MCV 103.1 fl (81-99) H 10/19/22 03:50 MCH 32.2 pg (28.0-34.0) 10/19/22 03:50 MCHC 31.2 g/dL (30.0-36.0) 10/19/22 03:50 RDW 21.1 % (12.1-15.1) H 10/19/22 03:50 Plt Count 23 10^3/cmm (130-400) L* D 10/19/22 03:50 MPV TNP 10/19/22 03:50 Neut % (Auto) 58.0 % 10/19/22 03:50 Lymph % (Auto) 27.4 % 10/19/22 03:50 Atkinson % (Auto) 7.3 % 10/19/22 03:50 Eos % (Auto) 0.0 % 10/19/22 03:50 Baso % (Auto) 0.0 % 10/19/22 03:50 Neut # (Auto) 0.72 10^3/uL (1.8-7.7) L* 10/19/22 03:50 Lymph # (Auto) 0.3 10^3/uL (0.8-4.8) L 10/19/22 03:50 Atkinson # (Auto) 0.1 10^3/uL (0.2-0.9) L 10/19/22 03:50 Eos # (Auto) 0.0 10^3/uL (0.0-0.8) 10/19/22 03:50 Baso # (Auto) 0.0 10^3/uL (0.0-0.1) 10/19/22 03:50 Nucleated RBC % (auto) 0 % 10/19/22 03:50 Nucleated RBCs # 0.0 /100WBC 10/19/22 03:50 Sodium 142 mmol/L (136-145) 10/19/22 03:50 Potassium 3.4 mmol/L (3.5-5.1) L 10/19/22 03:50 Chloride 107 mmol/L (98-107) 10/19/22 03:50 Carbon Dioxide 26 mmol/L (22-29) 10/19/22 03:50 Anion Gap 12.4 (5-19) 10/19/22 03:50 BUN 11 mg/dL (8-23) 10/19/22 03:50 Creatinine 0.4 mg/dL (0.5-0.9) L 10/19/22 03:50 GFR Calculation 157.8 mL/min (90-130) H 10/19/22 03:50 Glucose 100 mg/dL (65-115) 10/19/22 03:50 Calculated Osmolality 293 mOsm/kg (285-295) 10/19/22 03:50 Lactic Acid 1.0 mmol/L (0.5-2.2) 10/16/22 20:45 Calcium 8.4 mg/dL (8.5-10.5) L 10/19/22 03:50 Magnesium 1.8 mg/dL (1.7-2.3) 10/17/22 04:10 Total Bilirubin 0.5 mg/dL (0.15-1.2) 10/19/22 03:50 AST 22 U/L (0-32) 10/19/22 03:50 ALT 15 U/L (0-33) 10/19/22 03:50 Alkaline Phosphatase 66 U/L (35-105) 10/19/22 03:50 Total Protein 5.8 g/dL (6.6-8.7) L 10/19/22 03:50 Albumin 3.6 g/dL (3.5-5.2) 10/19/22 03:50 Globulin 2.2 g/dL (1.3-4.6) 10/19/22 03:50 Urine Color Yellow (Yellow) 10/16/22 21:42 Urine Appearance Clear (CLEAR) 10/16/22 21:42 Urine pH 5 (5-7) 10/16/22 21:42 Ur Specific [place] 1.010 (1.005-1.030) 10/16/22 21:42 Urine Protein Neg (Negative) 10/16/22 21:42 Urine Glucose (UA) Norm (Normal) 10/16/22 21:42 Urine Ketones Negative (Negative) 10/16/22 21:42 Urine Blood 2+ (Negative) H 10/16/22 21:42 Urine Nitrate Negative (Negative) 10/16/22 21:42 Urine Bilirubin Neg (Negative) 10/16/22 21:42 Urine Urobilinogen 1 mg/dL (Negative) H 10/16/22 21:42 Ur Leukocyte Esterase Trace (Negative) H 10/16/22 21:42 Urine RBC 0-4 /hpf (0-2) H 10/16/22 21:42 Urine WBC 5-10 /hpf (0-5) H 10/16/22 21:42 Ur Squamous Epith Cells 0-4 /hpf (0-5) H 10/16/22 21:42 Amorphous Sediment Not Reportable 10/16/22 21:42 Urine Bacteria None /hpf (NONE) 10/16/22 21:42 Urine Mucus 3+ /hpf 10/16/22 21:42 Nasal Influ A H1 2009 PCR Not detected (NOT DETECT) 10/16/22 21:32 Adenovirus (PCR) Not detected (NOT DETECT) 10/16/22 21:32 C. pneumoniae DNA (PCR) Not detected (NOT DETECT) 10/16/22 21:32 Coronavirus 229E (PCR) Not detected (NOT DETECT) 10/16/22 21:32 Human Metapneumovir PCR Not detected (NOT DETECT) 10/16/22 21:32 Influenza A (H1) PCR Not detected (NOT DETECT) 10/16/22 21:32 Influenza A (H3) PCR Not detected (NOT DETECT) 10/16/22 21:32 Influenza Type A (PCR) Not detected (NOT DETECT) 10/16/22 21:32 Influenza Type B (PCR) Not detected (NOT DETECT) 10/16/22 21:32 M. pneumoniae (PCR) Not detected (NOT DETECT) 10/16/22 21:32 Parainfluenza 1 (PCR) Not detected (NOT DETECT) 10/16/22 21:32 Parainfluenza 2 (PCR) Not detected (NOT DETECT) 10/16/22 21:32 Parainfluenza 3 (PCR) Detected (NOT DETECT) A 10/16/22 21:32 Parainfluenza 4 (PCR) Not detected (NOT DETECT) 10/16/22 21:32 RSV Type A (PCR) Not detected (NOT DETECT) 10/16/22 21:32 RSV Type B (PCR) Not detected (NOT DETECT) 10/16/22 21:32 Entero/Rhino (PCR) Not detected (NOT DETECT) 10/16/22 21:32 SARS-CoV-2 (PCR) Not detected (NOT DETECT) 10/16/22 21:32 Blood Type A Positive 10/15/22 08:50 Rho(D) Type Positive 10/15/22 08:50 Radiology Impressions Chest X-Ray 10/16/22 20:06 IMPRESSION: Negative for infiltrate Recent Clincial Data Last Vital Signs Temp 98.2 F 10/19/22 11:46 Pulse 63 10/19/22 11:46 Resp 16 10/19/22 11:46 BP 155/66 10/19/22 11:46 Pulse Ox 93 10/19/22 11:46 O2 Del Method Room Air 10/18/22 15:30 O2 Flow Rate 2 10/17/22 20:00 Vital Signs Temp Pulse Resp BP Pulse Ox 10/19/22 11:46 98.2 F 63 16 155/66 93 10/19/22 08:24 146/62 10/19/22 07:57 98.1 F 70 16 146/62 93 10/19/22 05:05 99.1 F 64 18 152/67 96 Intake & Output/Weight 10/17/22 10/18/22 10/19/22 10/20/22 06:59 06:59 06:59 06:59 Intake Total 350 / 350 4198 / 4198 2938 / 2938 1712.5 / 1712.5 Balance 350 / 350 4198 / 4198 2938 / 2938 1712.5 / 1712.5 Weight 58.967 kg Vitals Last Vital Signs Temp 98.2 F 10/19/22 11:46 Pulse 63 10/19/22 11:46 Resp 16 10/19/22 11:46 BP 155/66 10/19/22 11:46 Pulse Ox 93 10/19/22 11:46 O2 Del Method Room Air 10/18/22 15:30 O2 Flow Rate 2 10/17/22 20:00 TS Medications Medications Acetaminophen (Acetaminophen 325 Mg Tablet) 650 mg PO Q6H PRN PRN Reason: Mild/Mod Pain Or Temp >/= 101 Last Admin: 10/17/22 04:02 Dose: 650 mg Acyclovir (Acyclovir 400 Mg Tablet) 400 mg PO TID@09,14,20 [facility] Last Admin: 10/19/22 08:24 Dose: 400 mg Escitalopram Oxalate (Escitalopram 10 Mg Tablet) 20 mg PO DAILY [facility] Last Admin: 10/19/22 08:24 Dose: 20 mg Sodium Chloride (Sodium Chloride 0.9%) 1,000 mls @ 75 mls/hr IV .[id number] [facility] Last Infusion: 10/19/22 12:36 Dose: 0 mls/hr Linezolid (Zyvox Premix) 600 mg in 300 mls @ 300 mls/hr IV Q12H [facility]; Protocol Last Infusion: 10/19/22 11:42 Dose: Infused Cefepime HCl 2,000 mg/ Sodium (Chloride) 50 mls @ 100 mls/hr IV Q12H [facility]; Protocol Last Infusion: 10/19/22 10:12 Dose: Infused Losartan Potassium (Losartan 50 Mg Tablet) 50 mg PO BID [facility] Last Admin: 10/19/22 08:24 Dose: 50 mg Non-Formulary Medication (Posaconazole [Noxafil]) 200 mg PO QAM [facility] Last Admin: 10/19/22 06:08 Dose: 200 mg Ondansetron HCl (Ondansetron 2 Mg/Ml Sdv 2 Ml) 4 mg IVP Q4H PRN PRN Reason: vomiting, or N/V if npo Last Admin: 10/19/22 11:36 Dose: 4 mg Tramadol HCl (Tramadol 50 Mg Tablet) 50 mg PO BID PRN PRN Reason: pain Discontinued Medications Acetaminophen (Acetaminophen 500 Mg Tablet) 1,000 mg PO ONCE ONE Stop: 10/16/22 20:36 Last Admin: 10/16/22 20:48 Dose: 1,000 mg Dexamethasone (Dexamethasone 10 Mg/Ml Inj) 10 mg IVP ONCE ONE Stop: 10/17/22 13:01 Last Admin: 10/17/22 13:13 Dose: 10 mg Diphenhydramine HCl (Diphenhydramine 50 Mg/Ml Sdv 1ml) 25 mg IVP ONCE ONE Stop: 10/17/22 13:01 Last Admin: 10/17/22 13:13 Dose: 25 mg Vancomycin HCl 1,000 mg/ (Sodium Chloride) 250 mls @ 250 mls/hr IV ONCE ONE; Protocol Stop: 10/16/22 21:34 Last Admin: 10/16/22 20:58 Dose: Not Given Aztreonam 2,000 mg/ Sodium (Chloride) 100 mls @ 200 mls/hr IV ONCE ONE; Protocol Stop: 10/16/22 22:04 Cefepime HCl 2,000 mg/ Sodium (Chloride) 50 mls @ 100 mls/hr IV ONCE ONE; Protocol Stop: 10/16/22 22:12 Last Infusion: 10/16/22 23:26 Dose: Infused Linezolid (Zyvox Premix) 600 mg in 300 mls @ 300 mls/hr IV ONCE ONE; Protocol Stop: 10/16/22 23:14 Last Infusion: 10/17/22 00:13 Dose: Infused Methylprednisolone Sodium Succinate (Methylprednisolone Sod Succ 125 Mg/2 Ml Inj) 125 mg IVP ONCE ONE Stop: 10/17/22 12:01 Last Admin: 10/17/22 12:53 Dose: Not Given Ondansetron HCl (Ondansetron 2 Mg/Ml Sdv 2 Ml) 4 mg IVP Q6H PRN PRN Reason: vomiting, or N/V if npo Last Admin: 10/17/22 10:03 Dose: 4 mg Potassium Chloride (Potassium Chloride Er 20 Meq Tablet) 20 meq PO ONCE ONE Stop: 10/19/22 08:11 Last Admin: 10/19/22 08:24 Dose: 20 meq Allergies adhesive Allergy (Unknown, Verified 10/17/22 08:32) Itching/Redness amoxicillin Allergy (Verified 10/17/22 08:32) Rash, tongue swelling Patient has never taken Keflex Penicillins Allergy (Verified 10/17/22 08:32) Rash/tongue swelling Sulfa (Sulfonamide Antibiotics) Allergy (Verified 10/17/22 08:32) Rash vancomycin Adverse Reaction (Mild, Verified 10/17/22 08:32) ADR-Itching Home Medications acetaminophen 500 mg tablet (Tylenol Extra Strength) 500 mg PO Q6H PRN Pain 12/13/20 [History Confirmed 10/17/22] losartan 50 mg tablet 50 mg PO BID 08/08/21 [History Confirmed 10/17/22] biotin 10,000 mcg capsule 10,000 mcg PO DAILY 09/01/21 [History Confirmed 10/17/22] fluticasone furoate 100 mcg-vilanterol 25 mcg/dose inhalation powder (Breo Ellipta) 1 inh inhalation DAILY PRN unknown 10/23/21 [History Confirmed 10/17/22] clobetasol 0.05 % topical cream 1 applic topical .weekly #30 grams 12/06/21 [Rx Confirmed 10/17/22] ondansetron 8 mg disintegrating tablet 8 mg PO Q6H PRN Nausea And Vomiting #30 tabs 05/07/22 [Rx Confirmed 10/17/22] sennosides 8.6 mg capsule (senna) 8.6 mg PO DAILY PRN Constipation 06/11/22 [History Confirmed 10/17/22] posaconazole 100 mg tablet,delayed release (Noxafil) 200 mg PO QAM #60 tabs 07/11/22 [Rx Confirmed 10/17/22] acyclovir 400 mg tablet 400 mg PO TID@,, #90 tabs 07/25/22 [Rx Confirmed 10/17/22] levofloxacin 500 mg tablet 500 mg PO DAILY PRN infection 10/08/22 [History Confirmed 10/17/22] lidocaine-prilocaine 2.5 %-2.5 % topical cream 1 applic topical DIRECTED #30 grams 10/15/22 [Rx Confirmed 10/17/22] L.acidophil-L.casei-B.bifid-B.longum-FOS 2 billion cell-50 mg capsule (Probiotic Blend) 1 cap PO DAILY 10/17/22 [History Confirmed 10/17/22] albuterol sulfate 90 mcg/actuation aerosol inhaler 2 puff inhalation QID PRN Shortness Of Breath 10/17/22 [History Confirmed 10/17/22] amlodipine 2.5 mg tablet 2.5 mg PO BEDTIME 10/17/22 [History Confirmed 10/17/22] azithromycin 250 mg tablet See Rx Instructions .Route .COMPLEX 10/17/22 [History Confirmed 10/17/22] escitalopram oxalate 20 mg tablet 20 mg PO QAM 10/17/22 [History Confirmed 10/17/22] multivitamin with minerals-folic acid 200 mcg chewable tablet (Adult Multivitam in Gummies) 2 tab PO DAILY 10/17/22 [History Confirmed 10/17/22] potassium chloride 10 mEq capsule,extended release 10 meq PO QAM 10/17/22 [History Confirmed 10/17/22] venetoclax 100 mg tablet (Venclexta) See Rx Instructions .Route .COMPLEX 10/17/22 [History Confirmed 10/17/22] Discharge Plan Discharge Patient Disposition: Home Condition: Stable Prescriptions: Continued acetaminophen [Tylenol Extra Strength] 500 mg tablet 500 mg PO Q6H PRN (Reason: Pain) losartan 50 mg tablet 50 mg PO BID senna 8.6 mg capsule 8.6 mg PO DAILY PRN (Reason: Constipation) levofloxacin 500 mg tablet 500 mg PO DAILY PRN (Reason: infection) fluticasone furoate-vilanterol [Breo Ellipta] 100-25 mcg/dose blister with device 1 inh inhalation DAILY PRN (Reason: unknown) clobetasol 0.05 % cream 1 applic topical .weekly Qty: 30 1RF Rx Instructions: Apply to affected area posaconazole [Noxafil] 100 mg tablet,delayed release (DR/EC) 200 mg PO QAM Qty: 60 2RF acyclovir 400 mg tablet 400 mg PO TID@09,14,20 Qty: 90 3RF lidocaine-prilocaine 2.5-2.5 % cream 1 applic topical DIRECTED Qty: 30 3RF Rx Instructions: apply 45 minutes prior to port access biotin 10,000 mcg Capsule 10,000 mcg PO DAILY azithromycin 250 mg tablet See Rx Instructions .ROUTE .COMPLEX Rx Instructions: as directed on package amlodipine 2.5 mg tablet 2.5 mg PO BEDTIME albuterol sulfate 90 mcg/actuation HFA aerosol inhaler 2 puff INHALATION QID PRN (Reason: Shortness Of Breath) escitalopram oxalate 20 mg tablet 20 mg PO QAM Adult Multivitamin Gummies 200 mcg Tablet,Chewable 2 tab PO DAILY Probiotic Blend 2 billion cell-50 mg Capsule 1 cap PO DAILY Rx Instructions: give with meal/snack potassium chloride 10 mEq capsule, extended release 10 meq PO QAM Venclexta 100 mg tablet See Rx Instructions .ROUTE .COMPLEX Rx Instructions: take 100mg po daily for 7 days on, then off for 49 days ondansetron 8 mg Tablet,Disintegrating 8 mg PO Q6H PRN (Reason: Nausea And Vomiting) Qty: 30 1RF Referrals: Mercy Rosales MD [Primary Care Provider] - Patient Instructions: Opioid Safety Transfer Attestations Time Spent in Transfer Care: greater than 30 min Status at Transfer: Cognitive status at transfer: cognitively intact ; Behavioral status at transfer: cooperative ; Functional status at transfer: independent ambulation ; Quality Metrics Clinical Quality Measures [ No reported AMI, CVA or VTE this stay] Coding Level of Care Code Acute Code for Chg Fwd Diagnoses Fever R50.81 Fever type: due to other condition Fever and neutropenia D70.9; R50.81 Cough R05.9 UTI (urinary tract infection) N39.0 Thrombocytopenia D69.6 Anemia D64.9 Acute myeloblastic leukemia, in remission C92.01
[2022-10-19 14:43] LABS: Hematocrit 30.6 % (37.0-47.0); Hemoglobin 9.9 g/dL (11.5-15.3); Lymphocytes # 0.5 10^3/uL (0.8-4.8); Mean Corpuscular HGB Conc 32.4 g/dL (30.0-36.0); Monocytes # 0.1 10^3/uL (0.2-0.9); Monocytes % 7.3 %; Neutrophils % 55.5 %; Nucleated Red Blood Cells % 0 %; Red Cell Distribution Width 21.2 % (12.1-15.1); White Blood Count 1.4 10^3/uL (4.0-10.0)
[2022-10-19 15:05] LABS: Slide Review Slide Review Perform
[2022-10-19 15:06] LABS: Neutrophils # 0.76 10^3/uL (1.8-7.7); Platelet Count 24 10^3/cmm (130-400)
[2022-10-19] MEDS: benzonatate 100 mg Capsule 200 MG PO (17:29)
[2022-10-20] VITALS (23 sets, daily range): BP systolic 129–177; BP diastolic 54–95; PULSE 57–75; RESP 15–20; TEMP 35.5–37.5; O2SAT 94–98
[2022-10-20 05:21] LABS: Hematocrit 25.7 % (37.0-47.0); Hemoglobin 8.1 g/dL (11.5-15.3); Lymphocytes # 0.4 10^3/uL (0.8-4.8); Lymphocytes % 53.8 %; Mean Corpuscular HGB Conc 31.5 g/dL (30.0-36.0); Mean Corpuscular Hemoglobin 32.8 pg (28.0-34.0); Monocytes # 0.1 10^3/uL (0.2-0.9); Monocytes % 11.3 %; Neutrophils % 34.9 %; Nucleated Red Blood Cells % 0 %; Red Blood Count 2.47 10^6/uL (4.1-5.3)
[2022-10-20 05:37] LABS: INR 1.06 (0.8-1.2); Partial Thromboplastin Time 28.6 SECONDS (23.9-36.7)
[2022-10-20 05:38] LABS: Fibrinogen 538 mg/dL (174-498)
[2022-10-20 05:45] LABS: Alanine Aminotransferase 12 U/L (0-33); Albumin Level 3.5 g/dL (3.5-5.2); Alkaline Phosphatase 64 U/L (35-105); Anion Gap 10.6 (5-19); Aspartate Amino Transferase 22 U/L (0-32); Blood Urea Nitrogen 11 mg/dL (8-23); Calcium 8.4 mg/dL (8.5-10.5); Carbon Dioxide 29 mmol/L (22-29); Chloride 105 mmol/L (98-107); Globulin 2.2 g/dL (1.3-4.6); Glomerular Filtration Rate 157.8 mL/min (90-130); Glucose 87 mg/dL (65-115); Osmolality Calculated 291 mOsm/kg (285-295); Potassium 3.6 mmol/L (3.5-5.1); Sodium 141 mmol/L (136-145); Total Bilirubin 0.6 mg/dL (0.15-1.2); Total Protein 5.7 g/dL (6.6-8.7)
[2022-10-20 05:52] LABS: Slide Review Slide Review Perform
[2022-10-20 05:54] LABS: Platelet Count 14 10^3/cmm (130-400); White Blood Count 0.8 10^3/uL (4.0-10.0)
[2022-10-20 05:55] LABS: Neutrophils # 0.28 10^3/uL (1.8-7.7)
[2022-10-20] MEDS: losartan 50 mg Tablet PO ×2 (08:59→19:13)
[2022-10-20] MEDS: escitalopram 10 mg Tablet 20 MG PO (08:59)
[2022-10-20] MEDS: acyclovir 400 mg Tablet PO ×3 (08:59→20:11)
[2022-10-20] MEDS: benzonatate 100 mg Capsule 200 MG PO ×3 (09:02→20:12)
--- NOTE | 2022-10-20 09:05 | CTR_ITS ---
PROCEDURE INFORMATION: Exam: CTA Chest With Contrast Exam date and time: 10/20/2022 1:45 PM Age: 72 years old Clinical indication: Shortness of breath; Other: Chest pain; Prior surgery; Surgery date: 1-6 months; Surgery type: Port; Additional info: Hemoptysis, fever, neutropenia TECHNIQUE: Imaging protocol: Computed tomographic angiography of the chest with contrast. Exam focused on the arteries. 3D rendering (Not supervised by radiologist): MIP and/or 3D reconstructed images were created by the technologist. Radiation optimization: All CT scans at this facility use at least one of these dose optimization techniques: automated exposure control; mA and/or kV adjustment per patient size (includes targeted exams where dose is matched to clinical indication); or iterative reconstruction. Contrast material: OMNI 350; Contrast volume: 100 ml; Contrast route: INTRAVENOUS (IV); REPORTING DATA: Count of CT and Cardiac NM exams in prior 12 months: This patient has received 0 known CTs and 0 known cardiac nuclear medicine studies in the 12 months prior to the current study. COMPARISON: CT angio chest [id number] 01/06/2021 8:27 AM RADIATION DOSE METRICS: Total DLP (mGy-cm): 709.75 FINDINGS: Tubes, catheters and devices: There is a left IJ port. Pulmonary arteries: There is no pulmonary embolism. Aorta: Unremarkable. No aortic aneurysm. No aortic dissection. Lungs: Multifocal ground-glass and airspace opacities are noted in the lungs especially in the lower lobes concerning for pneumonic infiltrates. Pleural spaces: Unremarkable. No pneumothorax. No pleural effusion. Heart: The heart is enlarged. There is a small pericardial fluid collection present. Lymph nodes: There is a 1.2 cm short axis right hilar lymph node and 1 5 cm short axis subcarinal lymph node today which previously measured 1 cm. These may be reactive. Diaphragm: A small hiatal hernia is present. Bones/joints: Unremarkable. No acute fracture. Soft tissues: Unremarkable. PROCEDURE INFORMATION: Exam: CT Abdomen And Pelvis With Contrast Exam date and time: 10/20/2022 1:45 PM Age: 72 years old Clinical indication: Shortness of breath; Other: Chest pain; Prior surgery; Surgery date: 1-6 months; Surgery type: Port; Additional info: Hemoptysis, fever, neutropenia TECHNIQUE: Imaging protocol: Computed tomography of the abdomen and pelvis with contrast. REPORTING DATA: Count of CT and Cardiac NM exams in prior 12 months: This patient has received 0 known CTs and 0 known cardiac nuclear medicine studies in the 12 months prior to the current study. COMPARISON: CT chest con [id number] 09/30/2021 6:19 PM FINDINGS: Liver: Unremarkable.No mass. Gallbladder and bile ducts: Normal. No calcified stones. No ductal dilation. Pancreas: Normal. No ductal dilation. Spleen: Subcentimeter hypodensities are noted in the spleen and are too small to characterize and may reflect cysts or hemangiomas. Adrenal glands: The adrenal glands are normal. Kidneys and ureters: PancreasThe kidneys are normal. Stomach and bowel: There is no evidence of intestinal perforation or obstruction. There is no evidence of colitis/diverticulitis. Appendix: A normal appendix is identified. Intraperitoneal space: Unremarkable. No free air. No significant fluid collection. Vasculature: The aorta is normal. Lymph nodes: Unremarkable.No enlarged lymph nodes. Urinary bladder: The bladder is normal. Reproductive: Unremarkable as visualized. Bones/joints: There is disc space narrowing with moderate degenerative changes in the lower lumbar spine at L5-S1. Soft tissues: Unremarkable. CT/CT [facility] [id number] IMPRESSION: 1. Multifocal ground-glass and airspace opacities are noted in the lungs especially in the lower lobes concerning for pneumonic infiltrates. 2. There is no pulmonary embolism. IMPRESSION: No acute abnormality in the abdomen or pelvis.
[2022-10-20] MEDS: cefepime 2,000 MG in sodium chloride 0.9% (plus) 50 ML 100 MG IV ×2 (10:30→21:32)
[2022-10-20] MEDS: linezolid premix 600 MG/300 ML PREMIX 300 MG IV ×2 (11:05→22:06)
[2022-10-20] MEDS: iohexol 350 mg/mL 500 mL Btl (per mL) IV (13:54)
[2022-10-20] MEDS: diphenhydrAMINE 50 mg/mL SDV 1mL 25 MG IVP (14:13)
[2022-10-20] MEDS: dexamethasone 10 mg/mL INJ IVP (14:14)
--- NOTE | 2022-10-20 15:22 | P.PN_ITS ---
Subjective Subjective: Patient was seen and examined this morning, she has remained afebrile overnight, currently she is complaining of cough with, minimal hemoptysis, white blood cell count has trended down, as well as neutrophil count and platelet count and hemoglobin. Current plan is to transfuse her 2 units platelet and 1 unit PRBC. Prior to transfusions she will receive dexamethasone 10 mg IV one-time dose as well as Benadryl 25 IV, she will be also given Lasix 20 IV posttransfusion. Medications: Medication Review Details: 3Generic Name Dose Route Start Last Admin Trade Name Freq PRN Reason Stop Dose Admin Acetaminophen 650 mg 10/16/22 22:46 10/17/22 04:02 Acetaminophen 32 5 Mg Tablet PO 650 mg Q6H PRN Administration Mild/Mod Pain Or Temp >/= 101 Acyclovir 400 mg 10/17/22 09:00 10/20/22 13:14 Acyclovir 400 Mg Tablet PO 400 mg TID@09,14,20 HOLLY Administration Escitalopram Oxala te 20 mg 10/17/22 09:00 10/20/22 08:59 Escitalopram 10 Mg Tablet PO 20 mg DAILY HOLLY Administration Linezolid 600 mg in 300 mls @ 300 mls/hr 10/17/22 11:00 10/20/22 12:14 Zyvox Premix IV Infused Q12H HOLLY Infusion Protocol Cefepime HCl 2,000 mg/ Sodium 50 mls @ 100 mls/ hr 10/17/22 10:00 10/20/22 11:12 Chloride IV Infused Q12H HOLLY Infusion Protocol Losartan Potassium 50 mg 10/17/22 09:00 10/20/22 08:59 Losartan 50 Mg T ablet PO 50 mg BID HOLLY Administration Non-Formulary Medi cation 200 mg 10/17/22 06:00 10/20/22 06:50 Posaconazole [No xafil] PO 200 mg QAM HOLLY Administration Ondansetron HCl 4 mg 10/17/22 14:00 10/19/22 11:36 Ondansetron 2 Mg /Ml Sdv 2 Ml IVP 4 mg Q4H PRN Administration vomiting, or N/V if npo Vitals/I&O/Wt Last Vital Signs Temp 96 F L 10/20/22 14:54 Pulse 57 L 10/20/22 14:54 Resp 20 H 10/20/22 14:54 BP 166/68 10/20/22 14:54 Pulse Ox 97 10/20/22 14:54 O2 Del Method Nasal Cannula 10/20/22 12:00 O2 Flow Rate 3.5 10/20/22 03:26 10/20/22 10/20/22 10/20/22 06:59 14:59 22:59 Intake Total 700 / 2702.5 1267 / 1267 Balance 700 / 2702.5 1267 / 1267 Physical Exam HENMT: COMMON NORMALS: normocephalic and atraumatic HEAD & SCALP: normoceph alic and atraumatic Resp: OTHER: Left lower lung field basal crackles present Cardio: COMMON NORMALS: regular rate, regular rhythm, S1 normal heart sound present, S2 normal heart sound present, No gallops present (Cardio), No murmurs present (Cardio), No rub (Cardio) and Peripheral pulses 2+ throughout RATE: regular rate RHYTHM: regular rhythm HEART SOUNDS: S1 normal heart sound present and S2 normal heart sound present PERIPHERAL PULSES: Peripheral pulse s 2+ throughout GI: COMMON NORMALS: Normal to inspection, nondistended, normoactive bowel sounds present, Soft to palpation, non-tender, No hepatosplenomegaly present and no masses AUSCULTATION: Yes normoactive bowel sounds PALPATION: Yes Soft to palpation and Yes No hepatosplenomegaly present RECTAL EXAM: deferred Extremity: COMMON NORMALS: no clubbing, cyanosis or edema and no pedal edema Data 10/20/22 04:24 10/20/22 04:24 Micro: Microbiology 10/16/22 21:42 Urine Culture - Final Urine,Clean Catch A&P Assessment and plan (1) Fever: Patient presents with fever and neutropenia. Currently neutrophil count is: .28 Blood culture negative till date Urine culture: Results appreciated MRSA PCR negative Respiratory viral panel is positive for: Parainfluenza CT chest abdomen and pelvis: Multifocal ground-glass and airspace opacities are noted in the lungs especially in the lower lobes concerning for pneumonic infiltrates. No other acute process. Reverse isolation Currently on broad-spectrum antibiotics with linezolid and cefepime Continue her acyclovir, posaconazole Qualifiers: Fever type: due to other condition Qualified Code(s): R50.81 - Fever presenting with conditions classified elsewhere (2) Fever and neutropenia: See above (3) Cough: (4) UTI (urinary tract infection): Results equivocal. 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 Followed by Dr. Bradshaw. (8) Pneumonia: Patient is currently having significant cough with minimal hemoptysis. CTA chest showed: Multifocal ground-glass and airspace opacities are noted in the lungs especially in the lower lobes concerning for pneumonic infiltrates. Currently she has remained afebrile, using minimal supplemental oxygen. Appropriately covered with broad-spectrum antibiotics, she is also on posacon azole for IFI. Plan Multiple other medical problems as outlined in past medical history Full code currently SCDs for DVT prophylaxis. No pharmacologic prophylaxis secondary to thrombocytopenia Attestations Medical Necessity Statement*: Needs to be in hospital for IV antibiotics, blood products. Coding Level of Care Code Acute Code for [facility] Diagnoses Fever R50.81 Fever type: due to other condition Fever and neutropenia D70.9; R50.81 Cough R05.9 UTI (urinary tract infection) N39.0 Thrombocytopenia D69.6 Anemia D64.9 Acute myeloblastic leukemia, in remission C92.01 Pneumonia J18.9
[2022-10-20] MEDS: FUROsemide 10 mg/mL SDV 2mL 20 MG IVP (21:33)
[2022-10-21] VITALS (15 sets, daily range): BP systolic 132–178; BP diastolic 52–78; PULSE 54–69; RESP 15–18; TEMP 36.4–36.9; O2SAT 91–98
[2022-10-21 03:44] LABS: Hematocrit 28.8 % (37.0-47.0); Hemoglobin 9.6 g/dL (11.5-15.3); Lymphocytes # 0.2 10^3/uL (0.8-4.8); Lymphocytes % 27.5 %; Mean Corpuscular HGB Conc 33.3 g/dL (30.0-36.0); Mean Corpuscular Hemoglobin 32.3 pg (28.0-34.0); Monocytes # 0.1 10^3/uL (0.2-0.9); Monocytes % 8.7 %; Neutrophils % 63.8 %; Nucleated Red Blood Cells % 0 %; Red Blood Count 2.97 10^6/uL (4.1-5.3); Red Cell Distribution Width 20.9 % (12.1-15.1)
[2022-10-21 04:06] LABS: Alanine Aminotransferase 16 U/L (0-33); Albumin Level 3.7 g/dL (3.5-5.2); Alkaline Phosphatase 77 U/L (35-105); Anion Gap 13.7 (5-19); Aspartate Amino Transferase 18 U/L (0-32); Blood Urea Nitrogen 16 mg/dL (8-23); Calcium 8.9 mg/dL (8.5-10.5); Carbon Dioxide 28 mmol/L (22-29); Chloride 101 mmol/L (98-107); Globulin 2.5 g/dL (1.3-4.6); Glomerular Filtration Rate 219.9 mL/min (90-130); Glucose 133 mg/dL (65-115); Osmolality Calculated 291 mOsm/kg (285-295); Potassium 3.7 mmol/L (3.5-5.1); Sodium 139 mmol/L (136-145); Total Bilirubin 1.2 mg/dL (0.15-1.2); Total Protein 6.2 g/dL (6.6-8.7)
[2022-10-21 04:34] LABS: Slide Review Slide Review Perform
[2022-10-21 04:36] LABS: Platelet Count 10 10^3/cmm (130-400); White Blood Count 0.7 10^3/uL (4.0-10.0)
[2022-10-21 04:37] LABS: Neutrophils # 0.44 10^3/uL (1.8-7.7)
[2022-10-21] MEDS: losartan 50 mg Tablet PO (08:16)
[2022-10-21] MEDS: benzonatate 100 mg Capsule 200 MG PO ×2 (08:16→14:08)
[2022-10-21] MEDS: acyclovir 400 mg Tablet PO ×2 (08:16→14:08)
[2022-10-21] MEDS: escitalopram 10 mg Tablet 20 MG PO (08:17)
--- NOTE | 2022-10-21 09:02 | PC.SOCIAL ---
Imm update Imm updated with patient at bedside. Copy of page 2 provided. Patient verbalized understanding. Copy in chart initialed, dated and timed.
[2022-10-21] MEDS: cefepime 2,000 MG in sodium chloride 0.9% (plus) 50 ML 50 MG IV (10:18)
[2022-10-21] MEDS: diphenhydrAMINE 50 mg/mL SDV 1mL 25 MG IVP (10:53)
[2022-10-21] MEDS: dexamethasone 10 mg/mL INJ IVP (10:54)
[2022-10-21] MEDS: ondansetron 2 mg/ML SDV 2 mL 4 MG IVP (16:10)
[2022-10-21] MEDS: linezolid premix 600 MG/300 ML PREMIX 300 MG IV (16:14)
--- NOTE | 2022-10-21 18:40 | P.PN_ITS ---
Subjective Subjective: Patient was seen and examined this morning, she has remained afebrile overnight, [place] [address], neutrophil count has slightly improved to 0.44, hemoglobin is stable s/p 1 unit PRBC transfer, no fever, cultures continue to remain negative so far.Current plan is to transfuse her 2 units of platelets. Medications: Medication Review Details: Generic Name Dose Route Start Last Admin Trade Name Freq PRN Reason Stop Dose Admin Acetaminophen 650 mg 10/16/22 22:46 10/17/22 04:02 Acetaminophen 32 5 Mg Tablet PO 650 mg Q6H PRN Administration Mild/Mod Pain Or Temp >/= 101 Acyclovir 400 mg 10/17/22 09:00 10/20/22 13:14 Acyclovir 400 Mg Tablet PO 400 mg TID@, HOLLY Administration Escitalopram Oxala te 20 mg 10/17/22 09:00 10/20/22 08:59 Escitalopram 10 Mg Tablet PO 20 mg DAILY HOLLY Administration Linezolid 600 mg in 300 mls @ 300 mls/hr 10/17/22 11:00 10/20/22 12:14 Zyvox Premix IV Infused Q12H HOLLY Infusion Protocol Cefepime HCl 2,000 mg/ Sodium 50 mls @ 100 mls/ hr 10/17/22 10:00 10/20/22 11:12 Chloride IV Infused Q12H HOLLY Infusion Protocol Losartan Potassium 50 mg 10/17/22 09:00 10/20/22 08:59 Losartan 50 Mg T ablet PO 50 mg BID HOLLY Administration Non-Formulary Medi cation 200 mg 10/17/22 06:00 10/20/22 06:50 Posaconazole [No xafil] PO 200 mg QAM HOLLY Administration Ondansetron HCl 4 mg 10/17/22 14:00 10/19/22 11:36 Ondansetron 2 Mg /Ml Sdv 2 Ml IVP 4 mg Q4H PRN Administration vomiting, or N/V if npo Vitals/I&O/Wt Last Vital Signs Temp 97.7 F 10/21/22 17:56 Pulse 69 10/21/22 17:56 Resp 17 10/21/22 17:56 BP 161/78 10/21/22 17:56 Pulse Ox 94 10/21/22 17:56 O2 Del Method Room Air 10/21/22 12:00 O2 Flow Rate 2 10/21/22 04:00 10/21/22 10/21/22 10/21/22 06:59 14:59 22:59 Intake Total 350 / 2227 787 / 787 552 / 1339 Balance 350 / 2227 787 / 787 552 / 1339 Physical Exam Const: COMMON NORMALS: patient oriented x3 HENMT: COMMON NORMALS: normocephalic and atraumatic HEAD & SCALP: normocephalic and atraumatic Resp: COMMON NORMALS: clear to auscultation bilaterally AUSCULTATION: clear to auscultation bilaterally Cardio: COMMON NORMALS: regular rate, regular rhythm, S1 normal heart sound present, S2 normal heart sound present, No gallops present (Cardio), No murmurs present (Cardio), No rub (Cardio) and Peripheral pulses 2+ throughout RATE: regular rate RHYTHM: regular rhythm HEART SOUNDS: S1 normal heart sound present and S2 normal heart sound present PERIPHERAL PULSES: Peripheral pulses 2+ throughout GI: COMMON NORMALS: Normal to inspection, nondistended, normoactive bowel sounds present, Soft to palpation, non-tender, No hepatosplenomegaly present and no masses AUSCULTATION: Yes normoactive bowel sounds PALPATION: Yes Soft to palpation and Yes No hepatosplenomegaly present RECTAL EXAM: deferred Extremity: COMMON NORMALS: no clubbing, cyanosis or edema and no pedal edema Neuro: COMMON NORMALS: patient oriented x3 Data 10/21/22 03:06 10/21/22 03:06 Micro: Microbiology 10/19/22 09:00 Gram Stain - Final Sputum - Expectorated Sputum Sputum Culture - Final Branhamella catarrhalis A&P Assessment and plan (1) Fever: Patient presents with fever and neutropenia. Currently neutrophil count is: .44 Blood culture negative till date Urine culture: Results appreciated MRSA PCR negative Respiratory viral panel is positive for: Parainfluenza CT chest abdomen and pelvis: Multifocal ground-glass and airspace opacities are noted in the lungs especially in the lower lobes concerning for pneumonic infiltrates. No other acute process. Reverse isolation Currently on broad-spectrum antibiotics with linezolid and cefepime Continue her acyclovir, posaconazole Qualifiers: Fever type: due to other condition Qualified Code(s): R50.81 - Fever presenting with conditions classified elsewhere (2) Fever and neutropenia: See above (3) Cough: (4) UTI (urinary tract infection): Results equivocal. 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 Followed by Dr. Bradshaw. (8) Pneumonia: Patient is currently having significant cough with minimal hemoptysis. CTA chest showed: Multifocal ground-glass and airspace opacities are noted in the lungs especially in the lower lobes concerning for pneumonic infiltrates. Currently she has remained afebrile, using minimal supplemental oxygen. Appropriately covered with broad-spectrum antibiotics, she is also on posaconazole for IFI. Plan CODE STATUS full code SCDs for DVT prophylaxis. No pharmacologic prophylaxis secondary to thrombocytopenia Disposition: Has received bed at [facility] currently she is being transferred Attestations Medical Necessity Statement*: Currently she is being transferred Coding Level of Care Code Acute Code for [facility] Diagnoses Fever R50.81 Fever type: due to other condition Fever and neutropenia D70.9; R50.81 Cough R05.9 UTI (urinary tract infection) N39.0 Thrombocytopenia D69.6 Anemia D64.9 Acute myeloblastic leukemia, in remission C92.01 Pneumonia J18.9
== END 2022-10-21 17:57 | disposition short-term general hospital (02) | DRG 808 ==
LOC: ER 22:04 → MEDSURG 22:12
PROVIDERS: Admitting Provider Internal Medicine; Emergency Provider Emergency Medicine; PCP Internal Medicine; Visit Provider Internal Medicine
DX: D70.9 Neutropenia, unspecified (principal); J18.9 Pneumonia, unspecified organism; C92.01 Acute myeloblastic leukemia, in remission; N39.0 Urinary tract infection, site not specified; Z92.21 Personal history of antineoplastic chemotherapy; Z87.19 Personal history of other diseases of the digestive system; F41.9 Anxiety disorder, unspecified; F32.A Depression, unspecified; Z86.16 Personal history of COVID-19; E78.5 Hyperlipidemia, unspecified; D69.6 Thrombocytopenia, unspecified; N90.4 Leukoplakia of vulva; R50.81 Fever presenting with conditions classified elsewhere; B34.8 Other viral infections of unspecified site; D64.9 Anemia, unspecified
CPT/HCPCS: 36415; 36430; 36591; 71045; 71046; 71275; 74174; 80053; 81001; 83605; 83735; 85025; 85384; 85610; 85730; 86850; 86900; 86920; 87040; 87070; 87077; 87086; 87205; 87486; 87581; 87633; 87641; 96365; 96367; 96376; 99285; J0692; J1100; J1200; J1642; J1940; J2020; J2405; J7030; J8499; P9037; P9040; Q9967

== ENCOUNTER 2022-10-22 14:00 | Oncology outpatient (recurring) (ONCR) | payer MEDICARE, MEDICAID, SELFPAY ==
[2022-09-27 12:10] VITALS: BP 148/76; PULSE 61; RESP 18; TEMP 37.1; O2SAT 98
[2022-09-27 12:30] LABS: Eosinophils % 0.3 %; Hematocrit 35.8 % (37.0-47.0); Hemoglobin 11.5 g/dL (11.5-15.3); Lymphocytes % 26.1 %; Mean Corpuscular HGB Conc 32.1 g/dL (30.0-36.0); Mean Corpuscular Hemoglobin 31.8 pg (28.0-34.0); Mean Corpuscular Volume 98.9 fl (81-99); Mean Platelet Volume 9.1 fL (7.4-10.4); Monocytes # 0.7 10^3/uL (0.2-0.9); Monocytes % 17.1 %; Neutrophils # 2.13 10^3/uL (1.8-7.7); Nucleated Red Blood Cells % 0 %; Platelet Count 34 10^3/cmm (130-400); Red Blood Count 3.62 10^6/uL (4.1-5.3); Red Cell Distribution Width 21.2 % (12.1-15.1); White Blood Count 3.8 10^3/uL (4.0-10.0)
[2022-09-27 12:48] LABS: Alanine Aminotransferase 15 U/L (0-33); Albumin Level 4.2 g/dL (3.5-5.2); Alkaline Phosphatase 99 U/L (35-105); Anion Gap 15.9 (5-19); Aspartate Amino Transferase 25 U/L (0-32); Blood Urea Nitrogen 9 mg/dL (8-23); Calcium 8.7 mg/dL (8.5-10.5); Carbon Dioxide 25 mmol/L (22-29); Chloride 103 mmol/L (98-107); Globulin 2.6 g/dL (1.3-4.6); Glucose 136 mg/dL (65-115); Lactate Dehydrogenase 276 U/L (135-214); Osmolality Calculated 291 mOsm/kg (285-295); Potassium 3.9 mmol/L (3.5-5.1); Sodium 140 mmol/L (136-145); Total Bilirubin 0.6 mg/dL (0.15-1.2); Total Protein 6.8 g/dL (6.6-8.7)
[2022-10-08 11:07] VITALS: BP 145/69; PULSE 60; RESP 18; TEMP 36.8; O2SAT 96
[2022-10-08 11:18] LABS: Basophils % 0.2 %; Eosinophils % 0.5 %; Hematocrit 34.7 % (37.0-47.0); Hemoglobin 11.5 g/dL (11.5-15.3); Lymphocytes # 1.1 10^3/uL (0.8-4.8); Lymphocytes % 18.6 %; Mean Corpuscular HGB Conc 33.1 g/dL (30.0-36.0); Mean Corpuscular Hemoglobin 33.3 pg (28.0-34.0); Mean Corpuscular Volume 100.6 fl (81-99); Mean Platelet Volume 11.5 fL (7.4-10.4); Monocytes % 16.7 %; Neutrophils # 3.83 10^3/uL (1.8-7.7); Neutrophils % 63.2 %; Nucleated Red Blood Cells % 0 %; Platelet Count 52 10^3/cmm (130-400); Red Blood Count 3.45 10^6/uL (4.1-5.3); White Blood Count 6.1 10^3/uL (4.0-10.0)
[2022-10-08] MEDS: sodium chloride 0.9% 250 ML 100 ML IV (13:39)
[2022-10-08] MEDS: cyanocobalamin 1,000 mcg/mL SDV 1000 MCG IM (13:40)
[2022-10-08] MEDS: ondansetron 2 mg/ML SDV 2 mL 8 MG IVP (13:40)
[2022-10-08] MEDS: SODIUM CHLORIDE 0.9% IV (14:13)
[2022-10-08] MEDS: DECITABINE IV (14:13)
[2022-10-08 16:27] VITALS: BP 131/64; PULSE 67; TEMP 36.7; O2SAT 97
[2022-10-09] MEDS: sodium chloride 0.9% 250 ML 75 ML IV (14:38)
[2022-10-09] MEDS: ondansetron 2 mg/ML SDV 2 mL 8 MG IVP (14:39)
[2022-10-09] MEDS: SODIUM CHLORIDE 0.9% IV (14:55)
[2022-10-09] MEDS: DECITABINE IV (14:55)
[2022-10-09 16:14] VITALS: BP 150/67; PULSE 60; TEMP 36.2; O2SAT 98
[2022-10-10 12:52] VITALS: BMI 24.5
[2022-10-10 12:53] VITALS: BP 112/59; PULSE 60; RESP 16; TEMP 36.7; O2SAT 96
[2022-10-10] MEDS: sodium chloride 0.9% 250 ML 75 ML IV (13:04)
[2022-10-10] MEDS: ondansetron 2 mg/ML SDV 2 mL 8 MG IVP (13:05)
[2022-10-10] MEDS: DECITABINE IV (13:24)
[2022-10-10] MEDS: SODIUM CHLORIDE 0.9% IV (13:24)
[2022-10-10 15:07] VITALS: BP 145/78; PULSE 64; RESP 18; TEMP 36.6; O2SAT 98
[2022-10-11 15:49] LABS: Eosinophils % 0.8 %; Hemoglobin 10.8 g/dL (11.5-15.3); Lymphocytes # 0.8 10^3/uL (0.8-4.8); Lymphocytes % 15.8 %; Mean Corpuscular HGB Conc 31.8 g/dL (30.0-36.0); Mean Corpuscular Hemoglobin 32.6 pg (28.0-34.0); Mean Corpuscular Volume 102.7 fl (81-99); Mean Platelet Volume 11.9 fL (7.4-10.4); Monocytes # 0.4 10^3/uL (0.2-0.9); Neutrophils # 4.03 10^3/uL (1.8-7.7); Nucleated Red Blood Cells % 0 %; Platelet Count 61 10^3/cmm (130-400); Red Blood Count 3.31 10^6/uL (4.1-5.3); Red Cell Distribution Width 21.2 % (12.1-15.1); White Blood Count 5.3 10^3/uL (4.0-10.0)
[2022-10-11] MEDS: sodium chloride 0.9% 250 ML 75 ML IV (16:00)
[2022-10-11] MEDS: ondansetron 2 mg/ML SDV 2 mL 8 MG IVP (16:01)
[2022-10-11] MEDS: SODIUM CHLORIDE 0.9% IV (16:12)
[2022-10-11] MEDS: DECITABINE IV (16:12)
[2022-10-11 17:30] VITALS: BP 124/78; BP 145/78; PULSE 64; PULSE 78; RESP 18; TEMP 36.6; O2SAT 97; O2SAT 98
[2022-10-12 09:15] VITALS: BP 117/54; PULSE 59; RESP 16; TEMP 36.6; O2SAT 96
[2022-10-12] MEDS: ondansetron 2 mg/ML SDV 2 mL 8 MG IVP (09:27)
[2022-10-12] MEDS: sodium chloride 0.9% 250 ML 75 ML IV (09:27)
[2022-10-12] MEDS: DECITABINE IV (09:39)
[2022-10-12] MEDS: SODIUM CHLORIDE 0.9% IV (09:39)
[2022-10-12 11:05] VITALS: BP 146/66; PULSE 72; RESP 16; TEMP 36.6; O2SAT 96
[2022-10-15 14:21] VITALS: BP 150/72; PULSE 84; RESP 18; TEMP 36.9
[2022-10-15 14:30] LABS: Eosinophils % 0.3 %; Hematocrit 31.6 % (37.0-47.0); Hemoglobin 10.3 g/dL (11.5-15.3); Lymphocytes # 0.6 10^3/uL (0.8-4.8); Lymphocytes % 17.4 %; Mean Corpuscular HGB Conc 32.6 g/dL (30.0-36.0); Mean Corpuscular Hemoglobin 33.3 pg (28.0-34.0); Mean Corpuscular Volume 102.3 fl (81-99); Mean Platelet Volume 11.6 fL (7.4-10.4); Monocytes # 0.2 10^3/uL (0.2-0.9); Monocytes % 5.8 %; Neutrophils # 2.49 10^3/uL (1.8-7.7); Neutrophils % 76.2 %; Nucleated Red Blood Cells % 0 %; Platelet Count 42 10^3/cmm (130-400); Red Blood Count 3.09 10^6/uL (4.1-5.3); Red Cell Distribution Width 21.2 % (12.1-15.1); White Blood Count 3.3 10^3/uL (4.0-10.0)
== END 2022-10-26 23:59 | disposition home or self-care (01) ==
PROVIDERS: Nurse Practitioner; Nurse Practitioner Family; PCP Internal Medicine; Visit Provider Internal Medicine Medical Oncology
DX: C92.00 Acute myeloblastic leukemia, not having achieved remission (principal); C92.01 Acute myeloblastic leukemia, in remission; Z79.899 Other long term (current) drug therapy; D64.9 Anemia, unspecified
CPT/HCPCS: 36591; 80053; 83615; 85025; 86850; 86900; 96361; 96372; 96375; 96413; 96415; J0894; J1642; J2405; J3420; J7050

== ENCOUNTER 2022-11-26 14:00 | Oncology outpatient (recurring) (ONCR) | payer MEDICARE, MEDICAID, SELFPAY ==
[2022-10-29 13:53] VITALS: BP 153/68; PULSE 65; RESP 18; TEMP 36.4; O2SAT 96
[2022-10-29 14:07] LABS: Basophils % 2.3 %; Hematocrit 30.5 % (37.0-47.0); Hemoglobin 10.1 g/dL (11.5-15.3); Lymphocytes # 1.2 10^3/uL (0.8-4.8); Lymphocytes % 88.5 %; Mean Corpuscular HGB Conc 33.1 g/dL (30.0-36.0); Mean Corpuscular Hemoglobin 32.6 pg (28.0-34.0); Mean Corpuscular Volume 98.4 fl (81-99); Monocytes % 1.5 %; Neutrophils % 7.7 %; Nucleated Red Blood Cells % 1.5 %; Red Cell Distribution Width 20.3 % (12.1-15.1); White Blood Count 1.3 10^3/uL (4.0-10.0)
[2022-10-29 14:26] LABS: Platelet Count 17 10^3/cmm (130-400); Slide Review Slide Review Perform
[2022-10-31 08:10] VITALS: BP 122/68; PULSE 65; RESP 16; TEMP 36.7; O2SAT 98
[2022-10-31] MEDS: acetaminophen 325 mg Tablet 650 MG PO (08:33)
[2022-10-31] MEDS: diphenhydrAMINE 50 mg/mL SDV 1mL 25 MG IVP (08:33)
[2022-10-31] MEDS: hydrocortisone 100 mg/2 mL SDV IVP (08:34)
[2022-10-31 09:03] VITALS: BP 149/65; PULSE 57; RESP 16; TEMP 36.5; O2SAT 97
[2022-10-31 09:17] VITALS: BP 165/65; PULSE 68; RESP 18; TEMP 37.3; O2SAT 98
[2022-10-31 09:28] VITALS: BP 140/67; PULSE 69; RESP 16; TEMP 36.8; O2SAT 97
[2022-10-31] MEDS: sodium chloride 0.9% 250 ML IV (09:36)
[2022-10-31 10:09] VITALS: BP 148/64; PULSE 63; RESP 16; TEMP 36.8; O2SAT 98
[2022-11-01 13:44] VITALS: BP 130/76; PULSE 62; RESP 18; TEMP 36.9; O2SAT 98
[2022-11-01 14:00] LABS: Basophils % 1.4 %; Hematocrit 30.3 % (37.0-47.0); Hemoglobin 9.7 g/dL (11.5-15.3); Lymphocytes # 0.6 10^3/uL (0.8-4.8); Lymphocytes % 80.3 %; Mean Corpuscular Hemoglobin 32.3 pg (28.0-34.0); Mean Platelet Volume 10.3 fL (7.4-10.4); Monocytes % 4.2 %; Neutrophils % 12.7 %; Nucleated Red Blood Cells % 0 %; Red Cell Distribution Width 20.8 % (12.1-15.1)
[2022-11-01 14:10] LABS: Neutrophils # 0.09 10^3/uL (1.8-7.7); Platelet Count 27 10^3/cmm (130-400); White Blood Count 0.7 10^3/uL (4.0-10.0)
[2022-11-05 08:40] VITALS: BP 133/67; PULSE 65; RESP 18; TEMP 36.7; O2SAT 97
[2022-11-05 09:06] LABS: Basophils % 0.8 %; Hemoglobin 9.3 g/dL (11.5-15.3); Lymphocytes # 0.8 10^3/uL (0.8-4.8); Lymphocytes % 68.6 %; Mean Corpuscular HGB Conc 32.1 g/dL (30.0-36.0); Mean Corpuscular Hemoglobin 32.6 pg (28.0-34.0); Mean Corpuscular Volume 101.8 fl (81-99); Mean Platelet Volume 12.5 fL (7.4-10.4); Monocytes # 0.1 10^3/uL (0.2-0.9); Monocytes % 9.3 %; Neutrophils % 21.3 %; Nucleated Red Blood Cells % 0 %; Platelet Count 49 10^3/cmm (130-400); Red Blood Count 2.85 10^6/uL (4.1-5.3); Red Cell Distribution Width 21.3 % (12.1-15.1); White Blood Count 1.2 10^3/uL (4.0-10.0)
[2022-11-05 09:10] LABS: Neutrophils # 0.25 10^3/uL (1.8-7.7)
[2022-11-05 10:04] LABS: Alanine Aminotransferase 19 U/L (0-33); Albumin Level 4.1 g/dL (3.5-5.2); Alkaline Phosphatase 91 U/L (35-105); Anion Gap 13.4 (5-19); Aspartate Amino Transferase 20 U/L (0-32); Blood Urea Nitrogen 9 mg/dL (8-23); Calcium 9.2 mg/dL (8.5-10.5); Carbon Dioxide 24 mmol/L (22-29); Chloride 104 mmol/L (98-107); Globulin 2.4 g/dL (1.3-4.6); Glucose 89 mg/dL (65-115); Osmolality Calculated 282 mOsm/kg (285-295); Potassium 4.4 mmol/L (3.5-5.1); Sodium 137 mmol/L (136-145); Total Bilirubin 0.4 mg/dL (0.15-1.2); Total Protein 6.5 g/dL (6.6-8.7)
[2022-11-05 11:16] LABS: Vitamin B12 907 pg/mL (232-1245)
[2022-11-12 14:06] VITALS: BP 134/72; PULSE 68; RESP 18; TEMP 36.8; O2SAT 97
[2022-11-12 14:17] LABS: Basophils % 0.3 %; Eosinophils % 0.3 %; Hematocrit 29.3 % (37.0-47.0); Hemoglobin 9.8 g/dL (11.5-15.3); Lymphocytes # 0.9 10^3/uL (0.8-4.8); Lymphocytes % 31.2 %; Mean Corpuscular HGB Conc 33.4 g/dL (30.0-36.0); Mean Corpuscular Hemoglobin 34.4 pg (28.0-34.0); Mean Corpuscular Volume 102.8 fl (81-99); Mean Platelet Volume 9.8 fL (7.4-10.4); Monocytes # 0.8 10^3/uL (0.2-0.9); Monocytes % 26.1 %; Neutrophils # 1.22 10^3/uL (1.8-7.7); Neutrophils % 41.4 %; Nucleated Red Blood Cells % 0.7 %; Platelet Count 39 10^3/cmm (130-400); Red Blood Count 2.85 10^6/uL (4.1-5.3); Red Cell Distribution Width 21.9 % (12.1-15.1)
[2022-11-15 07:36] VITALS: BMI 24.1
[2022-11-15 07:37] VITALS: BP 154/67; PULSE 69; RESP 18; TEMP 36.9; O2SAT 96
[2022-11-15 07:58] LABS: Basophils % 0.3 %; Eosinophils % 0.3 %; Hematocrit 29.2 % (37.0-47.0); Hemoglobin 9.5 g/dL (11.5-15.3); Lymphocytes # 0.8 10^3/uL (0.8-4.8); Lymphocytes % 25.5 %; Mean Corpuscular HGB Conc 32.5 g/dL (30.0-36.0); Mean Corpuscular Hemoglobin 34.5 pg (28.0-34.0); Mean Corpuscular Volume 106.2 fl (81-99); Mean Platelet Volume 10.6 fL (7.4-10.4); Monocytes # 0.7 10^3/uL (0.2-0.9); Monocytes % 22.6 %; Neutrophils % 50.4 %; Nucleated Red Blood Cells % 0 %; Platelet Count 38 10^3/cmm (130-400); Red Blood Count 2.75 10^6/uL (4.1-5.3); Red Cell Distribution Width 22.5 % (12.1-15.1); White Blood Count 3.2 10^3/uL (4.0-10.0)
[2022-11-22 13:49] VITALS: BP 108/65; PULSE 76; RESP 18; TEMP 37.1; O2SAT 95
[2022-11-22 13:56] VITALS: BMI 23.8
[2022-11-22 14:01] LABS: Eosinophils % 0.5 %; Hematocrit 28.8 % (37.0-47.0); Hemoglobin 9.2 g/dL (11.5-15.3); Lymphocytes # 0.9 10^3/uL (0.8-4.8); Lymphocytes % 21.7 %; Mean Corpuscular HGB Conc 31.9 g/dL (30.0-36.0); Mean Corpuscular Hemoglobin 33.3 pg (28.0-34.0); Mean Corpuscular Volume 104.3 fl (81-99); Mean Platelet Volume 11.7 fL (7.4-10.4); Monocytes # 0.7 10^3/uL (0.2-0.9); Monocytes % 17.5 %; Neutrophils # 2.44 10^3/uL (1.8-7.7); Neutrophils % 59.3 %; Nucleated Red Blood Cells % 0 %; Platelet Count 54 10^3/cmm (130-400); Red Blood Count 2.76 10^6/uL (4.1-5.3); Red Cell Distribution Width 21.8 % (12.1-15.1); White Blood Count 4.1 10^3/uL (4.0-10.0)
[2022-11-26 14:03] VITALS: BMI 23.8
[2022-11-26 14:07] VITALS: BP 130/65; PULSE 68; RESP 17; TEMP 36.9; O2SAT 97
[2022-11-26 14:26] LABS: Basophils % 0.2 %; Eosinophils % 0.4 %; Hematocrit 29.1 % (37.0-47.0); Hemoglobin 9.5 g/dL (11.5-15.3); Lymphocytes % 17.4 %; Mean Corpuscular HGB Conc 32.6 g/dL (30.0-36.0); Mean Corpuscular Hemoglobin 34.7 pg (28.0-34.0); Mean Corpuscular Volume 106.2 fl (81-99); Mean Platelet Volume 11.3 fL (7.4-10.4); Monocytes # 0.8 10^3/uL (0.2-0.9); Monocytes % 14.3 %; Neutrophils # 3.65 10^3/uL (1.8-7.7); Neutrophils % 66.6 %; Nucleated Red Blood Cells % 0 %; Platelet Count 64 10^3/cmm (130-400); Red Blood Count 2.74 10^6/uL (4.1-5.3); Red Cell Distribution Width 21.6 % (12.1-15.1); White Blood Count 5.5 10^3/uL (4.0-10.0)
== END 2022-11-26 23:59 | disposition home or self-care (01) ==
PROVIDERS: PCP Internal Medicine; Visit Provider Internal Medicine Medical Oncology
DX: C92.00 Acute myeloblastic leukemia, not having achieved remission (principal)
CPT/HCPCS: 36430; 36591; 80053; 82607; 85025; 86850; 86900; 96375; 99214; J1200; J1642; J1720; J7050; P9037

== ENCOUNTER 2022-12-24 13:45 | Oncology outpatient (recurring) (ONCR) | payer MEDICARE, MEDICAID, SELFPAY ==
[2022-12-03 08:32] VITALS: BP 160/61; PULSE 68; RESP 18; TEMP 36.2; O2SAT 96
[2022-12-03 08:33] VITALS: BMI 23.8
[2022-12-03 08:50] LABS: Basophils % 0.3 %; Eosinophils # 0.1 10^3/uL (0.0-0.8); Hemoglobin 9.6 g/dL (11.5-15.3); Lymphocytes # 1.1 10^3/uL (0.8-4.8); Lymphocytes % 17.7 %; Mean Corpuscular Hemoglobin 33.1 pg (28.0-34.0); Mean Corpuscular Volume 106.9 fl (81-99); Mean Platelet Volume 11.3 fL (7.4-10.4); Monocytes # 0.8 10^3/uL (0.2-0.9); Monocytes % 12.7 %; Neutrophils # 4.26 10^3/uL (1.8-7.7); Neutrophils % 67.8 %; Nucleated Red Blood Cells % 0.3 %; Platelet Count 72 10^3/cmm (130-400); Red Cell Distribution Width 21.7 % (12.1-15.1); White Blood Count 6.3 10^3/uL (4.0-10.0)
[2022-12-03 09:26] LABS: Alanine Aminotransferase 16 U/L (0-33); Albumin Level 4.2 g/dL (3.5-5.2); Alkaline Phosphatase 100 U/L (35-105); Blood Urea Nitrogen 9 mg/dL (8-23); Calcium 9.1 mg/dL (8.5-10.5); Carbon Dioxide 23 mmol/L (22-29); Chloride 102 mmol/L (98-107); Globulin 2.6 g/dL (1.3-4.6); Glomerular Filtration Rate 82.7 mL/min (90-130); Glucose 173 mg/dL (65-115); Osmolality Calculated 291 mOsm/kg (285-295); Sodium 139 mmol/L (136-145); Total Bilirubin 0.4 mg/dL (0.15-1.2); Total Protein 6.8 g/dL (6.6-8.7)
[2022-12-03 09:32] LABS: Anion Gap 18.2 (5-19); Aspartate Amino Transferase 33 U/L (0-32); Lactate Dehydrogenase 310 U/L (135-214); Potassium 4.2 mmol/L (3.5-5.1)
[2022-12-03] MEDS: ondansetron 2 mg/ML SDV 2 mL 8 MG IVP (10:47)
[2022-12-03] MEDS: sodium chloride 0.9% 250 ML 75 ML IV (10:47)
[2022-12-03] MEDS: SODIUM CHLORIDE 0.9% IV (10:58)
[2022-12-03] MEDS: DECITABINE IV (10:58)
[2022-12-03 11:34] LABS: Vitamin B12 702 pg/mL (232-1245)
[2022-12-03 12:10] VITALS: BP 133/62; PULSE 61; RESP 18; TEMP 36.9; O2SAT 95
[2022-12-04 14:19] VITALS: BP 131/59; PULSE 61; RESP 17; TEMP 36.6; O2SAT 98
[2022-12-04] MEDS: sodium chloride 0.9% 250 ML 75 ML IV (14:23)
[2022-12-04] MEDS: ondansetron 2 mg/ML SDV 2 mL 8 MG IVP (14:24)
[2022-12-04] MEDS: DECITABINE IV (14:41)
[2022-12-04] MEDS: SODIUM CHLORIDE 0.9% IV (14:41)
[2022-12-04 15:00] VITALS: BMI 23.8
[2022-12-04 16:20] VITALS: BP 168/58; PULSE 67; RESP 18; TEMP 36.8; O2SAT 98
[2022-12-05 13:31] VITALS: BP 127/64; PULSE 64; RESP 18; TEMP 36.6; O2SAT 98
[2022-12-05 13:45] VITALS: BP 122/78; PULSE 74; RESP 18; TEMP 36.4; O2SAT 98
[2022-12-05] MEDS: ondansetron 2 mg/ML SDV 2 mL 8 MG IVP (13:52)
[2022-12-05] MEDS: sodium chloride 0.9% 250 ML 75 ML IV (13:52)
[2022-12-05] MEDS: DECITABINE IV (14:13)
[2022-12-05] MEDS: SODIUM CHLORIDE 0.9% IV (14:13)
[2022-12-05 15:30] VITALS: BP 134/59; PULSE 74; RESP 18; TEMP 36.6; O2SAT 98
[2022-12-06 13:32] VITALS: BP 134/64; PULSE 60; RESP 18; TEMP 36.6; O2SAT 98
[2022-12-06] MEDS: sodium chloride 0.9% 250 ML 75 ML IV (13:45)
[2022-12-06] MEDS: ondansetron 2 mg/ML SDV 2 mL 8 MG IVP (13:48)
[2022-12-06] MEDS: SODIUM CHLORIDE 0.9% IV (13:57)
[2022-12-06] MEDS: DECITABINE IV (13:57)
[2022-12-06 14:57] VITALS: BP 142/74; PULSE 78; RESP 18; TEMP 36.6; O2SAT 98
[2022-12-07] MEDS: sodium chloride 0.9% 250 ML 75 ML IV (09:12)
[2022-12-07] MEDS: ondansetron 2 mg/ML SDV 2 mL 8 MG IVP (09:14)
[2022-12-07 09:35] VITALS: BP 142/62; PULSE 62; RESP 17; TEMP 36.3; O2SAT 96
[2022-12-07] MEDS: SODIUM CHLORIDE 0.9% IV (09:44)
[2022-12-07] MEDS: DECITABINE IV (09:44)
[2022-12-07 11:00] VITALS: BP 138/67; PULSE 59; RESP 16; TEMP 36.2; O2SAT 97
[2022-12-10 12:39] VITALS: BMI 24.1
[2022-12-10 12:40] VITALS: BP 131/66; PULSE 70; RESP 18; TEMP 37.2; O2SAT 97
[2022-12-10 13:03] LABS: Basophils % 0.2 %; Eosinophils # 0.1 10^3/uL (0.0-0.8); Hemoglobin 9.3 g/dL (11.5-15.3); Lymphocytes # 0.8 10^3/uL (0.8-4.8); Lymphocytes % 15.4 %; Mean Corpuscular HGB Conc 32.1 g/dL (30.0-36.0); Mean Corpuscular Hemoglobin 34.3 pg (28.0-34.0); Mean Platelet Volume 9.2 fL (7.4-10.4); Monocytes # 0.3 10^3/uL (0.2-0.9); Monocytes % 5.4 %; Neutrophils % 77.2 %; Nucleated Red Blood Cells % 0 %; Platelet Count 44 10^3/cmm (130-400); Red Blood Count 2.71 10^6/uL (4.1-5.3); Red Cell Distribution Width 20.8 % (12.1-15.1); White Blood Count 5.2 10^3/uL (4.0-10.0)
[2022-12-19 14:49] VITALS: BP 165/66; PULSE 62; RESP 18; TEMP 36.4; O2SAT 93; BMI 24.1
[2022-12-19 15:10] LABS: Basophils % 0.5 %; Hematocrit 26.3 % (36-47); Lymphocytes % 46.6 %; Mean Corpuscular HGB Conc 32.3 g/dL (30-55); Mean Corpuscular Volume 105.2 fl (85-98); Monocytes # 0.1 10^3/uL (0.2-0.9); Monocytes % 4.9 %; Nucleated Red Blood Cells % 0 %; Positive C 1; Red Cell Distribution Width 20.2 % (12.1-15.1); White Blood Count 2.04 10^3/uL (3.29-11.43)
[2022-12-19 15:13] LABS: Neutrophils # 0.94 10^3/uL (1.8-7.7); Platelet Count 10 10^3/cmm (157-399)
[2022-12-20 10:15] VITALS: BP 143/67; PULSE 58; RESP 16; TEMP 36.7; O2SAT 97
[2022-12-20] MEDS: sodium chloride 0.9% (100 ml) 100 ML 75 ML (10:23)
[2022-12-20] MEDS: acetaminophen 325 mg Tablet 650 MG PO (10:25)
[2022-12-20] MEDS: diphenhydrAMINE 25 mg Capsule PO (10:25)
[2022-12-20] MEDS: hydrocortisone 100 mg/2 mL SDV IVP (10:27)
[2022-12-20 10:56] VITALS: BP 176/72; PULSE 58; RESP 18; TEMP 36.5; O2SAT 100
[2022-12-20 11:06] VITALS: PULSE 57; RESP 17; TEMP 36.6; O2SAT 97
[2022-12-20 11:27] VITALS: BP 159/70; PULSE 59; RESP 17; TEMP 36.7; O2SAT 99
[2022-12-24 13:17] VITALS: BMI 23.8
[2022-12-24 13:18] VITALS: BP 164/74; PULSE 66; RESP 18; TEMP 36.2; O2SAT 96
[2022-12-24 13:35] LABS: Eosinophils % 2.7 %; Hematocrit 28.4 % (36-47); Lymphocytes % 65.1 %; Mean Corpuscular Hemoglobin 34.3 pg (27-33); Mean Corpuscular Volume 107.2 fl (85-98); Neutrophils % 30.2 %; Nucleated Red Blood Cells % 0 %; Red Blood Count 2.65 10^6/uL (3.85-5.65); Red Cell Distribution Width 21.2 % (12.1-15.1); White Blood Count 1.49 10^3/uL (3.29-11.43)
[2022-12-24 13:48] LABS: Neutrophils # 0.45 10^3/uL (1.8-7.7); Platelet Count 25 10^3/cmm (157-399)
== END 2022-12-27 23:59 | disposition home or self-care (01) ==
PROVIDERS: PCP Internal Medicine; Visit Provider Internal Medicine Medical Oncology
DX: C92.00 Acute myeloblastic leukemia, not having achieved remission
CPT/HCPCS: 36430; 36591; 80053; 82607; 83615; 85025; 86900; 96367; 96375; 96413; 99214; J0894; J1642; J1720; J2405; J7050; P9035

== ENCOUNTER 2023-01-22 10:11 | Oncology outpatient (recurring) (ONCR) | payer MEDICARE, MEDICAID, SELFPAY ==
[2023-01-01 12:20] VITALS: BMI 24.1
[2023-01-01 12:21] VITALS: BP 146/68; PULSE 56; RESP 18; TEMP 36.7; O2SAT 95
[2023-01-01 12:50] LABS: Basophils % 0.6 %; Eosinophils % 1.2 %; Hematocrit 30.2 % (36-47); Lymphocytes % 61.4 %; Mean Corpuscular HGB Conc 31.8 g/dL (30-55); Mean Corpuscular Hemoglobin 34.5 pg (27-33); Mean Corpuscular Volume 108.6 fl (85-98); Mean Platelet Volume 10.7 fL (7.4-10.4); Monocytes # 0.2 10^3/uL (0.2-0.9); Monocytes % 10.2 %; Neutrophils % 26.6 %; Nucleated Red Blood Cells % 0 %; Platelet Count 111 10^3/cmm (157-399); Red Blood Count 2.78 10^6/uL (3.85-5.65); Red Cell Distribution Width 19.9 % (12.1-15.1); White Blood Count 1.66 10^3/uL (3.29-11.43)
[2023-01-01 12:53] LABS: Neutrophils # 0.44 10^3/uL (1.8-7.7)
[2023-01-07 13:27] VITALS: BP 144/74; PULSE 60; RESP 18; TEMP 36.9; O2SAT 97; BMI 24.0
[2023-01-07 13:47] LABS: Basophils % 0.3 %; Eosinophils % 0.6 %; Hematocrit 30.8 % (36-47); Lymphocytes % 31.2 %; Mean Corpuscular HGB Conc 31.8 g/dL (30-55); Mean Corpuscular Hemoglobin 34.5 pg (27-33); Mean Corpuscular Volume 108.5 fl (85-98); Mean Platelet Volume 10.3 fL (7.4-10.4); Monocytes # 0.5 10^3/uL (0.2-0.9); Monocytes % 16.1 %; Neutrophils # 1.69 10^3/uL (1.8-7.7); Neutrophils % 51.2 %; Nucleated Red Blood Cells % 0 %; Platelet Count 72 10^3/cmm (157-399); Red Blood Count 2.84 10^6/uL (3.85-5.65); Red Cell Distribution Width 18.6 % (12.1-15.1)
[2023-01-14 13:11] VITALS: BP 133/58; PULSE 67; RESP 16; TEMP 36.6; O2SAT 97
[2023-01-14 13:33] LABS: Basophils % 0.2 %; Eosinophils % 0.4 %; Lymphocytes # 1.3 10^3/uL (0.8-4.8); Lymphocytes % 29.3 %; Mean Corpuscular HGB Conc 32.1 g/dL (30-55); Mean Corpuscular Hemoglobin 34.9 pg (27-33); Mean Corpuscular Volume 108.6 fl (85-98); Mean Platelet Volume 11.2 fL (7.4-10.4); Monocytes # 0.5 10^3/uL (0.2-0.9); Monocytes % 10.6 %; Neutrophils # 2.69 10^3/uL (1.8-7.7); Neutrophils % 59.3 %; Nucleated Red Blood Cells % 0 %; Platelet Count 79 10^3/cmm (157-399); Red Blood Count 3.04 10^6/uL (3.85-5.65); Red Cell Distribution Width 18.2 % (12.1-15.1); White Blood Count 4.54 10^3/uL (3.29-11.43)
[2023-01-22 10:17] VITALS: BP 120/68; PULSE 58; RESP 16; TEMP 36.4; O2SAT 98
[2023-01-22 10:32] LABS: Basophils % 0.2 %; Eosinophils % 0.7 %; Lymphocytes # 1.1 10^3/uL (0.8-4.8); Lymphocytes % 23.4 %; Mean Corpuscular HGB Conc 32.8 g/dL (30-55); Mean Corpuscular Hemoglobin 35.4 pg (27-33); Mean Corpuscular Volume 107.7 fl (85-98); Mean Platelet Volume 8.9 fL (7.4-10.4); Monocytes # 0.6 10^3/uL (0.2-0.9); Monocytes % 12.9 %; Neutrophils # 2.87 10^3/uL (1.8-7.7); Neutrophils % 62.6 %; Nucleated Red Blood Cells % 0 %; Platelet Count 57 10^3/cmm (157-399); Red Blood Count 2.97 10^6/uL (3.85-5.65); Red Cell Distribution Width 17.2 % (12.1-15.1); White Blood Count 4.58 10^3/uL (3.29-11.43)
== END 2023-01-26 23:59 | disposition home or self-care (01) ==
PROVIDERS: PCP Internal Medicine; Visit Provider Internal Medicine Medical Oncology
DX: C92.01 Acute myeloblastic leukemia, in remission
CPT/HCPCS: 36591; 85025; 99203; 99214; J1642

== ENCOUNTER → 2023-02-12 14:52 | Outpatient (BNVA) | payer MEDICARE, MEDICAID, SELFPAY | PROVIDERS: PCP Internal Medicine; Visit Provider Podiatrist Foot & Ankle Surgery | DX: L60.0 Ingrowing nail; S90.32XA Contusion of left foot, initial encounter; W20.8XXA Other cause of strike by thrown, projected or falling object, initial encounter | CPT/HCPCS: 73630; 99213 ==

== ENCOUNTER 2023-02-25 13:30 | Oncology outpatient (recurring) (ONCR) | payer MEDICARE, MEDICAID, SELFPAY ==
[2023-01-28 10:30] VITALS: BP 134/74; PULSE 57; RESP 16; TEMP 36.6; O2SAT 98
[2023-01-28 10:48] LABS: Basophils % 0.2 %; Eosinophils % 0.7 %; Hematocrit 31.7 % (36-47); Lymphocytes # 0.9 10^3/uL (0.8-4.8); Lymphocytes % 15.9 %; Mean Corpuscular HGB Conc 32.5 g/dL (30-55); Mean Corpuscular Hemoglobin 34.7 pg (27-33); Mean Corpuscular Volume 106.7 fl (85-98); Mean Platelet Volume 9.6 fL (7.4-10.4); Monocytes # 0.7 10^3/uL (0.2-0.9); Monocytes % 12.2 %; Neutrophils # 3.97 10^3/uL (1.8-7.7); Neutrophils % 70.3 %; Nucleated Red Blood Cells % 0 %; Platelet Count 62 10^3/cmm (157-399); Red Blood Count 2.97 10^6/uL (3.85-5.65); White Blood Count 5.65 10^3/uL (3.29-11.43)
[2023-01-28 12:41] LABS: Albumin Level 4.2 g/dL (3.5-5.2); Alkaline Phosphatase 96 U/L (35-105); Blood Urea Nitrogen 10 mg/dL (8-23); Calcium 8.8 mg/dL (8.5-10.5); Carbon Dioxide 27 mmol/L (22-29); Chloride 103 mmol/L (98-107); Globulin 2.6 g/dL (1.3-4.6); Glomerular Filtration Rate 157.8 mL/min (90-130); Glucose 146 mg/dL (65-115); Osmolality Calculated 292 mOsm/kg (285-295); Sodium 140 mmol/L (136-145); Total Bilirubin 0.4 mg/dL (0.15-1.2); Total Protein 6.8 g/dL (6.6-8.7)
[2023-01-28 12:42] LABS: Alanine Aminotransferase 17 U/L (0-33); Anion Gap 13.9 (5-19); Aspartate Amino Transferase 30 U/L (0-32); Lactate Dehydrogenase 388 U/L (135-214); Potassium 3.9 mmol/L (3.5-5.1)
[2023-01-30 14:39] VITALS: BP 136/74; PULSE 67
[2023-02-04 11:55] VITALS: BP 140/71; PULSE 62; RESP 16; TEMP 36.3
[2023-02-04 12:16] LABS: Basophils % 0.2 %; Eosinophils # 0.1 10^3/uL (0.0-0.8); Eosinophils % 0.8 %; Hematocrit 33.4 % (36-47); Lymphocytes # 1.1 10^3/uL (0.8-4.8); Mean Corpuscular Hemoglobin 34.3 pg (27-33); Mean Corpuscular Volume 107.1 fl (85-98); Monocytes # 0.8 10^3/uL (0.2-0.9); Monocytes % 13.1 %; Neutrophils # 4.09 10^3/uL (1.8-7.7); Neutrophils % 67.1 %; Nucleated Red Blood Cells % 0 %; Platelet Count 71 10^3/cmm (157-399); Red Blood Count 3.12 10^6/uL (3.85-5.65); Red Cell Distribution Width 16.6 % (12.1-15.1)
[2023-02-04 12:34] LABS: Alanine Aminotransferase 22 U/L (0-33); Albumin Level 4.2 g/dL (3.5-5.2); Alkaline Phosphatase 102 U/L (35-105); Blood Urea Nitrogen 8 mg/dL (8-23); Calcium 9.1 mg/dL (8.5-10.5); Carbon Dioxide 28 mmol/L (22-29); Chloride 100 mmol/L (98-107); Glucose 82 mg/dL (65-115); Osmolality Calculated 275 mOsm/kg (285-295); Sodium 134 mmol/L (136-145); Total Bilirubin 0.4 mg/dL (0.15-1.2); Total Protein 6.2 g/dL (6.6-8.7)
[2023-02-04 12:36] LABS: Anion Gap 10.1 (5-19); Aspartate Amino Transferase 27 U/L (0-32); Lactate Dehydrogenase 324 U/L (135-214); Potassium 4.1 mmol/L (3.5-5.1)
[2023-02-04] MEDS: ondansetron 2 mg/ML SDV 2 mL 8 MG IVP (14:55)
[2023-02-04] MEDS: sodium chloride 0.9% 250 ML 75 ML IV (14:55)
[2023-02-04 15:22] LABS: Iron 62 ug/dL (37-145); Magnesium 2.2 mg/dL (1.7-2.3); Thyroid Stimulating Hormone 3.84 uIU/mL (0.27-4.20)
[2023-02-04] MEDS: DECITABINE IV (15:33)
[2023-02-04] MEDS: SODIUM CHLORIDE 0.9% IV (15:33)
[2023-02-04 15:40] LABS: Percent Saturation 22.6 % (20-50); Total Iron Binding Capacity 274 mcg/dl; Unsaturated Iron Binding 212 ug/dL (112-347)
[2023-02-04 16:41] VITALS: BP 153/71; PULSE 66; RESP 16; TEMP 36.9; O2SAT 97
[2023-02-05] MEDS: sodium chloride 0.9% 250 ML 75 ML IV (13:05)
[2023-02-05] MEDS: ondansetron 2 mg/ML SDV 2 mL 8 MG IVP (13:05)
[2023-02-05] MEDS: SODIUM CHLORIDE 0.9% IV (13:29)
[2023-02-05] MEDS: DECITABINE IV (13:29)
[2023-02-05 14:55] VITALS: BP 156/63; PULSE 59; RESP 16; TEMP 36.3; O2SAT 95
[2023-02-05 15:35] LABS: Vitamin B12 598 pg/mL (232-1245)
[2023-02-06 15:00] VITALS: BP 139/71; PULSE 62; RESP 16; TEMP 36.9; O2SAT 98
[2023-02-06] MEDS: sodium chloride 0.9% 250 ML 75 ML IV (15:12)
[2023-02-06] MEDS: ondansetron 2 mg/ML SDV 2 mL 8 MG IVP (15:12)
[2023-02-06] MEDS: SODIUM CHLORIDE 0.9% IV (15:56)
[2023-02-06] MEDS: DECITABINE IV (15:56)
[2023-02-06 17:21] VITALS: BP 160/72; PULSE 62; TEMP 36.3; O2SAT 97
[2023-02-07] MEDS: ondansetron 2 mg/ML SDV 2 mL 8 MG IVP (14:32)
[2023-02-07] MEDS: sodium chloride 0.9% 250 ML 100 ML IV (14:32)
[2023-02-07] MEDS: DECITABINE IV (15:00)
[2023-02-07] MEDS: SODIUM CHLORIDE 0.9% IV (15:00)
[2023-02-07 16:16] VITALS: BP 156/75; PULSE 61; RESP 17; TEMP 36.3; O2SAT 99
[2023-02-08] MEDS: sodium chloride 0.9% 250 ML 75 ML IV (08:31)
[2023-02-08] MEDS: ondansetron 2 mg/ML SDV 2 mL 8 MG IVP (08:31)
[2023-02-08] MEDS: SODIUM CHLORIDE 0.9% IV (08:58)
[2023-02-08] MEDS: DECITABINE IV (08:58)
[2023-02-08 09:00] VITALS: BP 142/66; PULSE 71; RESP 16; TEMP 37; O2SAT 96
[2023-02-08 10:15] VITALS: BP 152/75; PULSE 63; RESP 16; TEMP 37.1; O2SAT 92
[2023-02-11 14:05] VITALS: BP 156/72; PULSE 63; RESP 16; TEMP 36.6; O2SAT 97
[2023-02-11 14:33] LABS: Basophils % 0.3 %; Eosinophils # 0.1 10^3/uL (0.0-0.8); Hematocrit 32.4 % (36-47); Lymphocytes % 17.2 %; Mean Corpuscular HGB Conc 31.2 g/dL (30-55); Mean Corpuscular Hemoglobin 33.9 pg (27-33); Mean Corpuscular Volume 108.7 fl (85-98); Monocytes # 0.3 10^3/uL (0.2-0.9); Monocytes % 5.7 %; Neutrophils # 4.34 10^3/uL (1.8-7.7); Neutrophils % 74.9 %; Nucleated Red Blood Cells % 0 %; Platelet Count 69 10^3/cmm (157-399); Red Blood Count 2.98 10^6/uL (3.85-5.65); Red Cell Distribution Width 16.2 % (12.1-15.1)
[2023-02-18 14:00] LABS: Basophils % 0.4 %; Eosinophils # 0.1 10^3/uL (0.0-0.8); Eosinophils % 2.5 %; Hematocrit 30.9 % (36-47); Lymphocytes % 37.1 %; Mean Corpuscular HGB Conc 32.7 g/dL (30-55); Mean Corpuscular Hemoglobin 34.1 pg (27-33); Mean Corpuscular Volume 104.4 fl (85-98); Monocytes # 0.2 10^3/uL (0.2-0.9); Monocytes % 6.5 %; Neutrophils # 1.45 10^3/uL (1.8-7.7); Neutrophils % 52.8 %; Nucleated Red Blood Cells % 0 %; Red Blood Count 2.96 10^6/uL (3.85-5.65); White Blood Count 2.75 10^3/uL (3.29-11.43)
[2023-02-18 15:02] LABS: Platelet Count 12 10^3/cmm (157-399)
[2023-02-18 15:03] LABS: Slide Review Slide Review Perform
[2023-02-19 13:30] VITALS: BP 120/59; PULSE 60; RESP 16; TEMP 36.9; O2SAT 97
[2023-02-19] MEDS: acetaminophen 325 mg Tablet 650 MG PO (13:34)
[2023-02-19] MEDS: diphenhydrAMINE 50 mg/mL SDV 1mL 25 MG IVP (13:34)
[2023-02-19] MEDS: hydrocortisone 100 mg/2 mL SDV IVP (13:35)
[2023-02-19 14:00] VITALS: BP 154/70; PULSE 58; RESP 16; TEMP 36.8; O2SAT 94
[2023-02-19 14:15] VITALS: BP 156/70; PULSE 58; RESP 16; TEMP 37.1; O2SAT 96
[2023-02-19 14:20] VITALS: BP 156/70; PULSE 58; RESP 16; TEMP 37.1; O2SAT 96
[2023-02-21 12:41] VITALS: BMI 23.8
[2023-02-21 12:42] VITALS: BP 138/66; PULSE 55; RESP 17; TEMP 36.3; O2SAT 96
[2023-02-21 13:31] LABS: Basophils % 0.5 %; Eosinophils % 1.9 %; Hematocrit 31.8 % (36-47); Lymphocytes % 49.5 %; Mean Corpuscular HGB Conc 32.1 g/dL (30-55); Monocytes # 0.1 10^3/uL (0.2-0.9); Monocytes % 4.4 %; Neutrophils % 43.7 %; Nucleated Red Blood Cells % 0 %; Red Cell Distribution Width 16.4 % (12.1-15.1); White Blood Count 2.06 10^3/uL (3.29-11.43)
[2023-02-21 13:45] LABS: Add Urine Microscopic? YES; Bilirubin Urine 1+ (Negative); Blood Urine Neg (Negative); Glucose Urine UA Norm (Normal); Ketones Urine 1+ (Negative); Leukocyte Esterase Urine Trace (Negative); Nitrate Urine Negative (Negative); Protein Urine 1+ (Negative); Urine Appearance SL Hazy (CLEAR); Urine Color Yellow (Yellow); Urobilinogen Urine 1 mg/dL (Negative); pH Urine 5 (5-7)
[2023-02-21 13:46] LABS: Amorphous Sediment Urine 1+ /hpf; Bacteria Urine TRACE /hpf; Mucus Urine 2+ /hpf; RBC Urine 0-4 /hpf (0-2); Squamous Epithelial Cell Urine 0-4 /hpf (0-5); Transitional Epi Cells Urine 0-4 /hpf; WBC Urine 0-4 /hpf (0-5)
[2023-02-21 13:47] LABS: Add Urine Culture? No
[2023-02-21 13:54] LABS: Slide Review Slide Review Perform
[2023-02-21 13:55] LABS: Platelet Count 11 10^3/cmm (157-399)
[2023-02-22 09:30] VITALS: BP 160/67; PULSE 63; RESP 16; TEMP 36.4; O2SAT 97; BMI 23.8
[2023-02-22] MEDS: acetaminophen 325 mg Tablet 650 MG PO (09:35)
[2023-02-22] MEDS: diphenhydrAMINE 25 mg Capsule PO (09:36)
[2023-02-22] MEDS: sodium chloride 0.9% (100 ml) 100 ML 25 ML (09:38)
[2023-02-22] MEDS: hydrocortisone 100 mg/2 mL SDV IVP (09:43)
[2023-02-22 10:30] VITALS: BP 166/65; PULSE 57; RESP 16; TEMP 36.5
[2023-02-22 10:45] VITALS: BP 159/71; PULSE 64; RESP 17; TEMP 36.3; O2SAT 97
[2023-02-22 11:00] VITALS: BP 155/67; PULSE 60; RESP 16; TEMP 36.8; O2SAT 94
[2023-02-22 11:38] VITALS: BP 155/67; PULSE 60; RESP 16; TEMP 36.8; O2SAT 94
[2023-02-25 13:34] VITALS: BP 136/71; PULSE 64; RESP 17; TEMP 36.3; O2SAT 97
[2023-02-25 13:41] LABS: Basophils % 0.7 %; Eosinophils % 1.4 %; Hematocrit 31.3 % (36-47); Lymphocytes # 0.9 10^3/uL (0.8-4.8); Mean Corpuscular HGB Conc 31.9 g/dL (30-55); Mean Corpuscular Hemoglobin 33.7 pg (27-33); Mean Corpuscular Volume 105.4 fl (85-98); Monocytes % 2.1 %; Neutrophils % 32.8 %; Nucleated Red Blood Cells % 0 %; Red Blood Count 2.97 10^6/uL (3.85-5.65); Red Cell Distribution Width 17.2 % (12.1-15.1); White Blood Count 1.46 10^3/uL (3.29-11.43)
[2023-02-25 14:05] LABS: Slide Review Slide Review Perform
[2023-02-25 14:07] LABS: Neutrophils # 0.48 10^3/uL (1.8-7.7); Platelet Count 23 10^3/cmm (157-399)
== END 2023-02-26 23:59 | disposition home or self-care (01) ==
PROVIDERS: PCP Internal Medicine; Visit Provider Internal Medicine Medical Oncology
DX: D69.6 Thrombocytopenia, unspecified (principal); C92.00 Acute myeloblastic leukemia, not having achieved remission
CPT/HCPCS: 36430; 36591; 80053; 81001; 82607; 83540; 83550; 83615; 83735; 84443; 85025; 86900; 96374; 96375; 96413; J0894; J1200; J1642; J1720; J2405; J7050; P9037; P9040

== ENCOUNTER 2023-03-18 13:15 | Oncology outpatient (recurring) (ONCR) | payer MEDICARE, MEDICAID, SELFPAY ==
[2023-03-04 13:34] VITALS: BP 127/65; PULSE 70; RESP 16; TEMP 36.4; O2SAT 95
[2023-03-04 14:01] LABS: Basophils % 0.7 %; Eosinophils % 1.3 %; Hematocrit 31.1 % (36-47); Lymphocytes # 1.1 10^3/uL (0.8-4.8); Lymphocytes % 72.5 %; Mean Corpuscular HGB Conc 31.8 g/dL (30-55); Mean Corpuscular Volume 106.9 fl (85-98); Mean Platelet Volume 10.3 fL (7.4-10.4); Monocytes # 0.1 10^3/uL (0.2-0.9); Monocytes % 8.7 %; Neutrophils % 16.1 %; Nucleated Red Blood Cells % 0 %; Platelet Count 89 10^3/cmm (157-399); Red Blood Count 2.91 10^6/uL (3.85-5.65); Red Cell Distribution Width 17.3 % (12.1-15.1); White Blood Count 1.49 10^3/uL (3.29-11.43)
[2023-03-04 14:17] LABS: Slide Review Slide Review Perform
[2023-03-04 14:18] LABS: Neutrophils # 0.24 10^3/uL (1.8-7.7)
[2023-03-11 13:15] VITALS: BP 116/64; PULSE 65; RESP 16; TEMP 36.4; O2SAT 98
[2023-03-11 13:38] LABS: Eosinophils % 0.3 %; Hematocrit 33.2 % (36-47); Lymphocytes # 0.9 10^3/uL (0.8-4.8); Lymphocytes % 30.6 %; Mean Corpuscular HGB Conc 31.9 g/dL (30-55); Mean Corpuscular Hemoglobin 33.5 pg (27-33); Mean Corpuscular Volume 105.1 fl (85-98); Mean Platelet Volume 9.9 fL (7.4-10.4); Monocytes # 0.5 10^3/uL (0.2-0.9); Monocytes % 17.3 %; Neutrophils # 1.51 10^3/uL (1.8-7.7); Neutrophils % 51.5 %; Nucleated Red Blood Cells % 0 %; Platelet Count 80 10^3/cmm (157-399); Red Blood Count 3.16 10^6/uL (3.85-5.65); Red Cell Distribution Width 16.8 % (12.1-15.1); White Blood Count 2.94 10^3/uL (3.29-11.43)
--- NOTE | 2023-03-11 15:39 | PC.NURSE ---
Received call from pt wanting to know lab results. Notified pt of platelets, WBC, Hgb, and ANC. Pt also stated her back has been hurting in between her shoulder blades and is wondering what else she can take besides tylenol due to it not helping like it usually does. Spoke with Subha Jimenez NP and she agreed pt should make an appointment with her primary care provider. Notified pt of need to see provider. Also let pt know that her pain could be due to many different things such as heart, epigastric, or just back pain. Told pt if pain gets worse or she has pain in chest or jaw to go to ER. JW
[2023-03-18 13:39] VITALS: BP 147/67; PULSE 60; RESP 16; TEMP 36.9; O2SAT 96
[2023-03-18 14:00] LABS: Basophils % 0.3 %; Eosinophils % 0.8 %; Hematocrit 32.8 % (36-47); Lymphocytes # 1.1 10^3/uL (0.8-4.8); Lymphocytes % 29.2 %; Mean Corpuscular HGB Conc 32.3 g/dL (30-55); Mean Corpuscular Hemoglobin 34.3 pg (27-33); Mean Corpuscular Volume 106.1 fl (85-98); Mean Platelet Volume 10.9 fL (7.4-10.4); Monocytes # 0.6 10^3/uL (0.2-0.9); Monocytes % 16.7 %; Neutrophils # 2.01 10^3/uL (1.8-7.7); Neutrophils % 52.5 %; Nucleated Red Blood Cells % 0 %; Platelet Count 67 10^3/cmm (157-399); Red Blood Count 3.09 10^6/uL (3.85-5.65); Red Cell Distribution Width 17.2 % (12.1-15.1); White Blood Count 3.83 10^3/uL (3.29-11.43)
== END 2023-03-28 23:59 | disposition home or self-care (01) ==
PROVIDERS: PCP Internal Medicine; Visit Provider Internal Medicine Medical Oncology
DX: C92.00 Acute myeloblastic leukemia, not having achieved remission (principal)
CPT/HCPCS: 36591; 85025; J1642

== ENCOUNTER 2023-04-23 13:00 | Oncology outpatient (recurring) (ONCR) | payer MEDICARE, SELFPAY ==
[2023-04-01 11:37] VITALS: BP 150/70; PULSE 61; RESP 16; TEMP 36.4; O2SAT 96
[2023-04-01 11:54] LABS: Basophils % 0.4 %; Eosinophils % 0.8 %; Hematocrit 34.8 % (36-47); Lymphocytes # 1.1 10^3/uL (0.8-4.8); Lymphocytes % 20.1 %; Mean Corpuscular HGB Conc 32.2 g/dL (30-55); Mean Corpuscular Hemoglobin 33.9 pg (27-33); Mean Corpuscular Volume 105.5 fl (85-98); Mean Platelet Volume 10.1 fL (7.4-10.4); Monocytes # 0.7 10^3/uL (0.2-0.9); Monocytes % 13.7 %; Neutrophils # 3.39 10^3/uL (1.8-7.7); Neutrophils % 64.2 %; Nucleated Red Blood Cells % 0 %; Platelet Count 72 10^3/cmm (157-399); Red Cell Distribution Width 16.7 % (12.1-15.1); White Blood Count 5.27 10^3/uL (3.29-11.43)
[2023-04-01 13:27] LABS: Alanine Aminotransferase 24 U/L (0-33); Albumin Level 4.2 g/dL (3.5-5.2); Alkaline Phosphatase 98 U/L (35-105); Anion Gap 13.5 (5-19); Aspartate Amino Transferase 12 U/L (0-32); Blood Urea Nitrogen 10 mg/dL (8-23); Calcium 9.4 mg/dL (8.5-10.5); Carbon Dioxide 25 mmol/L (22-29); Chloride 103 mmol/L (98-107); Globulin 2.5 g/dL (1.3-4.6); Glucose 132 mg/dL (65-115); Osmolality Calculated 285 mOsm/kg (285-295); Potassium 4.5 mmol/L (3.5-5.1); Sodium 137 mmol/L (136-145); Total Bilirubin 0.4 mg/dL (0.15-1.2); Total Protein 6.7 g/dL (6.6-8.7)
[2023-04-01] MEDS: sodium chloride 0.9% (100 ml) 100 ML 75 ML (14:29)
[2023-04-01] MEDS: ondansetron 2 mg/ML SDV 2 mL 8 MG IVP (14:29)
[2023-04-01] MEDS: DECITABINE IV (14:43)
[2023-04-01] MEDS: SODIUM CHLORIDE 0.9% IV (14:43)
[2023-04-01 15:46] VITALS: BP 130/72; PULSE 61; RESP 16; O2SAT 95
[2023-04-02 13:30] VITALS: BP 132/66; PULSE 59; RESP 16; TEMP 36.8; O2SAT 98
[2023-04-02] MEDS: sodium chloride 0.9% (100 ml) 100 ML 75 ML (13:38)
[2023-04-02] MEDS: ondansetron 2 mg/ML SDV 2 mL 8 MG IVP (13:38)
[2023-04-02] MEDS: DECITABINE IV (13:53)
[2023-04-02] MEDS: SODIUM CHLORIDE 0.9% IV (13:53)
[2023-04-02 15:00] VITALS: BP 145/69; PULSE 58; RESP 16; TEMP 36.7; O2SAT 97
[2023-04-03] MEDS: sodium chloride 0.9% (100 ml) 100 ML 75 ML (13:36)
[2023-04-03] MEDS: ondansetron 2 mg/ML SDV 2 mL 8 MG IVP (13:37)
[2023-04-03] MEDS: SODIUM CHLORIDE 0.9% IV (14:20)
[2023-04-03] MEDS: DECITABINE IV (14:20)
[2023-04-03 15:30] VITALS: BP 145/77; PULSE 59; RESP 16; TEMP 36.6; O2SAT 99
[2023-04-04] MEDS: sodium chloride 0.9% (100 ml) 100 ML 25 ML (13:57)
[2023-04-04] MEDS: ondansetron 2 mg/ML SDV 2 mL 8 MG IVP (13:58)
[2023-04-04 14:01] VITALS: BP 130/68; PULSE 55; RESP 18; TEMP 36.6; O2SAT 99
[2023-04-04] MEDS: SODIUM CHLORIDE 0.9% IV (14:08)
[2023-04-04] MEDS: DECITABINE IV (14:08)
[2023-04-04 15:25] VITALS: BP 156/76; PULSE 56; RESP 16; TEMP 36.9; O2SAT 99
[2023-04-05] MEDS: ondansetron 2 mg/ML SDV 2 mL 8 MG IVP (09:24)
[2023-04-05] MEDS: SODIUM CHLORIDE 0.9% IV (09:53)
[2023-04-05] MEDS: DECITABINE IV (09:53)
[2023-04-08 15:05] VITALS: BP 141/73; PULSE 62; RESP 16; TEMP 36.9; O2SAT 96
[2023-04-08 15:37] LABS: Basophils % 0.2 %; Eosinophils # 0.1 10^3/uL (0.0-0.8); Eosinophils % 1.1 %; Hematocrit 33.2 % (36-47); Lymphocytes # 0.9 10^3/uL (0.8-4.8); Mean Corpuscular HGB Conc 32.2 g/dL (30-55); Mean Corpuscular Hemoglobin 33.6 pg (27-33); Mean Corpuscular Volume 104.4 fl (85-98); Mean Platelet Volume 9.8 fL (7.4-10.4); Monocytes # 0.3 10^3/uL (0.2-0.9); Monocytes % 5.1 %; Neutrophils # 4.25 10^3/uL (1.8-7.7); Neutrophils % 77.2 %; Nucleated Red Blood Cells % 0 %; Platelet Count 77 10^3/cmm (157-399); Red Blood Count 3.18 10^6/uL (3.85-5.65); Red Cell Distribution Width 16.4 % (12.1-15.1)
[2023-04-15 13:25] VITALS: BP 148/78; PULSE 60; RESP 16; O2SAT 97
[2023-04-15 13:35] LABS: Basophils % 0.4 %; Eosinophils # 0.1 10^3/uL (0.0-0.8); Eosinophils % 2.2 %; Hematocrit 29.7 % (36-47); Lymphocytes # 0.9 10^3/uL (0.8-4.8); Lymphocytes % 40.5 %; Mean Corpuscular HGB Conc 32.7 g/dL (30-55); Mean Corpuscular Hemoglobin 33.4 pg (27-33); Mean Corpuscular Volume 102.4 fl (85-98); Monocytes # 0.1 10^3/uL (0.2-0.9); Neutrophils # 1.18 10^3/uL (1.8-7.7); Neutrophils % 50.9 %; Nucleated Red Blood Cells % 0 %; Red Cell Distribution Width 16.2 % (12.1-15.1); White Blood Count 2.32 10^3/uL (3.29-11.43)
[2023-04-15 13:48] LABS: Platelet Count 15 10^3/cmm (157-399)
[2023-04-18 13:40] LABS: Basophils % 0.5 %; Eosinophils # 0.1 10^3/uL (0.0-0.8); Eosinophils % 2.6 %; Hematocrit 30.4 % (36-47); Lymphocytes # 0.9 10^3/uL (0.8-4.8); Lymphocytes % 48.2 %; Mean Corpuscular HGB Conc 32.6 g/dL (30-55); Mean Corpuscular Hemoglobin 33.4 pg (27-33); Mean Corpuscular Volume 102.7 fl (85-98); Monocytes # 0.1 10^3/uL (0.2-0.9); Monocytes % 3.6 %; Neutrophils % 43.5 %; Nucleated Red Blood Cells % 0 %; Red Blood Count 2.96 10^6/uL (3.85-5.65); Red Cell Distribution Width 16.8 % (12.1-15.1); White Blood Count 1.93 10^3/uL (3.29-11.43)
[2023-04-18 13:48] LABS: Platelet Count 14 10^3/cmm (157-399)
[2023-04-18 13:49] LABS: Neutrophils # 0.84 10^3/uL (1.8-7.7)
[2023-04-18 13:56] LABS: Slide Review Slide Review Perform
[2023-04-23 13:37] VITALS: BP 126/72; PULSE 57; RESP 18; TEMP 36.6; O2SAT 98
[2023-04-23 14:05] VITALS: BP 135/73; BP 161/72
[2023-04-23 14:10] LABS: Basophils % 0.8 %; Eosinophils % 2.5 %; Hematocrit 30.9 % (36-47); Lymphocytes # 0.8 10^3/uL (0.8-4.8); Lymphocytes % 69.7 %; Mean Corpuscular HGB Conc 32.4 g/dL (30-55); Mean Corpuscular Hemoglobin 33.9 pg (27-33); Mean Corpuscular Volume 104.7 fl (85-98); Mean Platelet Volume 9.5 fL (7.4-10.4); Monocytes % 0.8 %; Neutrophils % 26.2 %; Nucleated Red Blood Cells % 0 %; Platelet Count 40 10^3/cmm (157-399); Red Blood Count 2.95 10^6/uL (3.85-5.65); Red Cell Distribution Width 17.5 % (12.1-15.1); White Blood Count 1.19 10^3/uL (3.29-11.43)
[2023-04-23 14:27] LABS: Alanine Aminotransferase 13 U/L (0-33); Albumin Level 4.3 g/dL (3.5-5.2); Alkaline Phosphatase 92 U/L (35-105); Blood Urea Nitrogen 11 mg/dL (8-23); Calcium 9.1 mg/dL (8.5-10.5); Carbon Dioxide 25 mmol/L (22-29); Chloride 104 mmol/L (98-107); Globulin 2.4 g/dL (1.3-4.6); Glucose 100 mg/dL (65-115); Osmolality Calculated 289 mOsm/kg (285-295); Sodium 140 mmol/L (136-145); Total Bilirubin 0.6 mg/dL (0.15-1.2); Total Protein 6.7 g/dL (6.6-8.7)
[2023-04-23 14:33] LABS: Neutrophils # 0.31 10^3/uL (1.8-7.7)
[2023-04-23 14:36] LABS: Slide Review Slide Review Perform
--- NOTE | 2023-04-23 15:02 | PC.NURSE ---
M for patient to return call to discuss lab results, Dr. Bradshaw informed of critical ANC of 0.31, patient to continue on the levaquin.
[2023-04-23 15:06] LABS: Anion Gap 15.2 (5-19); Aspartate Amino Transferase 20 U/L (0-32); Potassium 4.2 mmol/L (3.5-5.1)
[2023-04-23 15:07] LABS: Lactate Dehydrogenase 223 U/L (135-214)
--- NOTE | 2023-04-23 15:39 | PC.NURSE ---
LVM for patient to return call.
[2023-04-23 16:25] VITALS: BP 141/78; PULSE 74; RESP 18; TEMP 36.6; O2SAT 99
== END 2023-04-28 23:59 | disposition home or self-care (01) ==
PROVIDERS: PCP Internal Medicine; Visit Provider Internal Medicine Medical Oncology
DX: C92.01 Acute myeloblastic leukemia, in remission (principal); Z53.9 Procedure and treatment not carried out, unspecified reason
CPT/HCPCS: 36591; 80053; 83615; 85025; 86850; 86900; 96375; 96413; J0894; J1642; J2405

== ENCOUNTER 2023-05-29 12:15 | Oncology outpatient (recurring) (ONCR) | payer MEDICARE, MEDICAID, SELFPAY ==
[2023-04-30 13:20] VITALS: BP 116/63; PULSE 70; RESP 16; TEMP 36.7; O2SAT 97
[2023-04-30 13:25] LABS: Basophils % 0.7 %; Eosinophils % 2.1 %; Hematocrit 32.6 % (36-47); Lymphocytes # 0.9 10^3/uL (0.8-4.8); Mean Corpuscular HGB Conc 32.2 g/dL (30-55); Mean Corpuscular Volume 105.5 fl (85-98); Mean Platelet Volume 10.5 fL (7.4-10.4); Monocytes # 0.2 10^3/uL (0.2-0.9); Monocytes % 12.5 %; Neutrophils % 25.7 %; Nucleated Red Blood Cells % 0 %; Platelet Count 93 10^3/cmm (157-399); Red Blood Count 3.09 10^6/uL (3.85-5.65); Red Cell Distribution Width 17.7 % (12.1-15.1); White Blood Count 1.44 10^3/uL (3.29-11.43)
[2023-04-30 13:43] LABS: Alanine Aminotransferase 17 U/L (0-33); Albumin Level 4.2 g/dL (3.5-5.2); Alkaline Phosphatase 103 U/L (35-105); Aspartate Amino Transferase 23 U/L (0-32); Blood Urea Nitrogen 11 mg/dL (8-23); Calcium 9.5 mg/dL (8.5-10.5); Carbon Dioxide 26 mmol/L (22-29); Chloride 101 mmol/L (98-107); Globulin 2.2 g/dL (1.3-4.6); Glucose 85 mg/dL (65-115); Osmolality Calculated 283 mOsm/kg (285-295); Sodium 137 mmol/L (136-145); Total Bilirubin 0.6 mg/dL (0.15-1.2); Total Protein 6.4 g/dL (6.6-8.7)
[2023-04-30 13:45] LABS: Anion Gap 14.3 (5-19); Lactate Dehydrogenase 200 U/L (135-214); Potassium 4.3 mmol/L (3.5-5.1)
[2023-04-30 13:56] LABS: Neutrophils # 0.37 10^3/uL (1.8-7.7)
[2023-05-06 12:13] VITALS: BP 140/63; PULSE 60; RESP 16; TEMP 36.4; O2SAT 95
[2023-05-06 12:42] LABS: Basophils % 0.3 %; Hematocrit 34.4 % (36-47); Lymphocytes # 1.1 10^3/uL (0.8-4.8); Lymphocytes % 34.5 %; Mean Corpuscular HGB Conc 32.3 g/dL (30-55); Mean Corpuscular Hemoglobin 34.3 pg (27-33); Mean Corpuscular Volume 106.2 fl (85-98); Mean Platelet Volume 11.7 fL (7.4-10.4); Monocytes # 0.5 10^3/uL (0.2-0.9); Monocytes % 16.9 %; Neutrophils # 1.47 10^3/uL (1.8-7.7); Nucleated Red Blood Cells % 0 %; Platelet Count 89 10^3/cmm (157-399); Red Blood Count 3.24 10^6/uL (3.85-5.65); Red Cell Distribution Width 17.5 % (12.1-15.1); White Blood Count 3.13 10^3/uL (3.29-11.43)
[2023-05-13 13:50] VITALS: BP 156/75; PULSE 54; RESP 16; TEMP 35.7; O2SAT 96
[2023-05-13 13:57] LABS: Eosinophils % 0.6 %; Hematocrit 32.5 % (36-47); Lymphocytes % 29.1 %; Mean Corpuscular HGB Conc 32.3 g/dL (30-55); Mean Corpuscular Hemoglobin 33.8 pg (27-33); Mean Corpuscular Volume 104.5 fl (85-98); Mean Platelet Volume 10.3 fL (7.4-10.4); Monocytes # 0.5 10^3/uL (0.2-0.9); Monocytes % 14.8 %; Neutrophils # 1.93 10^3/uL (1.8-7.7); Neutrophils % 54.9 %; Nucleated Red Blood Cells % 0 %; Platelet Count 70 10^3/cmm (157-399); Red Blood Count 3.11 10^6/uL (3.85-5.65); Red Cell Distribution Width 17.2 % (12.1-15.1); White Blood Count 3.51 10^3/uL (3.29-11.43)
[2023-05-21 13:39] VITALS: BP 131/71; PULSE 58; RESP 18; TEMP 36.6; O2SAT 97
[2023-05-21 14:18] LABS: Basophils % 0.2 %; Eosinophils % 0.4 %; Hematocrit 33.8 % (36-47); Lymphocytes # 1.1 10^3/uL (0.8-4.8); Lymphocytes % 23.2 %; Mean Corpuscular HGB Conc 32.5 g/dL (30-55); Mean Corpuscular Volume 104.3 fl (85-98); Mean Platelet Volume 10.6 fL (7.4-10.4); Monocytes # 0.7 10^3/uL (0.2-0.9); Monocytes % 13.9 %; Neutrophils # 2.98 10^3/uL (1.8-7.7); Neutrophils % 61.7 %; Nucleated Red Blood Cells % 0 %; Platelet Count 95 10^3/cmm (157-399); Red Blood Count 3.24 10^6/uL (3.85-5.65); Red Cell Distribution Width 16.9 % (12.1-15.1); White Blood Count 4.83 10^3/uL (3.29-11.43)
[2023-05-27 11:22] VITALS: BP 134/67; PULSE 60; RESP 18; TEMP 36.4; O2SAT 97
[2023-05-27 11:39] LABS: Basophils % 0.2 %; Eosinophils % 0.8 %; Hematocrit 33.8 % (36-47); Lymphocytes # 1.1 10^3/uL (0.8-4.8); Lymphocytes % 21.3 %; Mean Corpuscular HGB Conc 32.2 g/dL (30-55); Mean Corpuscular Volume 105.3 fl (85-98); Mean Platelet Volume 11.8 fL (7.4-10.4); Monocytes # 0.7 10^3/uL (0.2-0.9); Monocytes % 14.1 %; Neutrophils # 3.25 10^3/uL (1.8-7.7); Nucleated Red Blood Cells % 0 %; Platelet Count 95 10^3/cmm (157-399); Red Blood Count 3.21 10^6/uL (3.85-5.65); Red Cell Distribution Width 16.8 % (12.1-15.1); White Blood Count 5.16 10^3/uL (3.29-11.43)
[2023-05-27 11:55] LABS: Alanine Aminotransferase 18 U/L (0-33); Albumin Level 4.1 g/dL (3.5-5.2); Alkaline Phosphatase 109 U/L (35-105); Blood Urea Nitrogen 10 mg/dL (8-23); Calcium 9.2 mg/dL (8.5-10.5); Carbon Dioxide 27 mmol/L (22-29); Chloride 103 mmol/L (98-107); Creatinine Clr Calc Pharmacy 52.6653; Globulin 2.4 g/dL (1.3-4.6); Glucose 89 mg/dL (65-115); Osmolality Calculated 285 mOsm/kg (285-295); Sodium 138 mmol/L (136-145); Total Bilirubin 0.5 mg/dL (0.15-1.2); Total Protein 6.5 g/dL (6.6-8.7)
[2023-05-27 12:02] LABS: Anion Gap 12.4 (5-19); Potassium 4.4 mmol/L (3.5-5.1)
[2023-05-27 12:03] LABS: Aspartate Amino Transferase 24 U/L (0-32)
[2023-05-27] MEDS: sodium chloride 0.9% 250 ML 75 ML IV (13:07)
[2023-05-27] MEDS: ondansetron 2 mg/ML SDV 2 mL 8 MG IVP (13:09)
[2023-05-27] MEDS: SODIUM CHLORIDE 0.9% IV (13:44)
[2023-05-27] MEDS: DECITABINE IV (13:44)
[2023-05-27 15:15] VITALS: BP 150/62; PULSE 61; RESP 16; TEMP 36.1; O2SAT 97
[2023-05-28] MEDS: sodium chloride 0.9% 250 ML 75 ML IV (12:41)
[2023-05-28] MEDS: ondansetron 2 mg/ML SDV 2 mL 8 MG IVP (12:41)
[2023-05-28] MEDS: SODIUM CHLORIDE 0.9% IV (13:05)
[2023-05-28] MEDS: DECITABINE IV (13:05)
[2023-05-28 14:34] VITALS: BP 152/72; PULSE 58; RESP 16; TEMP 36.7; O2SAT 96
[2023-05-29] MEDS: sodium chloride 0.9% 250 ML 75 ML IV (13:24)
[2023-05-29] MEDS: ondansetron 2 mg/ML SDV 2 mL 8 MG IVP (13:26)
[2023-05-29] MEDS: SODIUM CHLORIDE 0.9% IV (14:28)
[2023-05-29] MEDS: DECITABINE IV (14:28)
[2023-05-29 14:32] VITALS: BP 147/73; PULSE 55; RESP 16; TEMP 36.8; O2SAT 97
[2023-05-29 15:54] VITALS: BP 144/60; PULSE 64; TEMP 36.9; O2SAT 94
== END 2023-05-29 23:59 | disposition home or self-care (01) ==
PROVIDERS: PCP Internal Medicine; Visit Provider Internal Medicine Medical Oncology
DX: Z53.9 Procedure and treatment not carried out, unspecified reason (principal); Z51.11 Encounter for antineoplastic chemotherapy; C92.00 Acute myeloblastic leukemia, not having achieved remission
CPT/HCPCS: 36591; 80053; 83615; 85025; 96375; 96413; 99214; J0894; J1642; J2405; J7050

== ENCOUNTER 2023-06-24 13:00 | Oncology outpatient (recurring) (ONCR) | payer MEDICARE, MEDICAID, SELFPAY ==
[2023-05-30] MEDS: ondansetron 2 mg/ML SDV 2 mL 8 MG IVP (12:45)
[2023-05-30] MEDS: sodium chloride 0.9% 250 ML 75 ML IV (12:45)
[2023-05-30] MEDS: DECITABINE IV (12:53)
[2023-05-30] MEDS: SODIUM CHLORIDE 0.9% IV (12:53)
[2023-05-30 14:15] VITALS: BP 135/57; PULSE 61; RESP 16; TEMP 37.2; O2SAT 96
[2023-05-31] MEDS: ondansetron 2 mg/ML SDV 2 mL 8 MG IVP (09:02)
[2023-05-31] MEDS: sodium chloride 0.9% 250 ML 75 ML IV (09:02)
[2023-05-31] MEDS: SODIUM CHLORIDE 0.9% IV (09:20)
[2023-05-31] MEDS: DECITABINE IV (09:20)
[2023-06-03 13:53] LABS: Basophils % 0.2 %; Eosinophils # 0.1 10^3/uL (0.0-0.8); Eosinophils % 1.1 %; Hematocrit 32.7 % (36-47); Lymphocytes % 21.4 %; Mean Corpuscular HGB Conc 32.1 g/dL (30-55); Mean Corpuscular Hemoglobin 33.4 pg (27-33); Mean Corpuscular Volume 104.1 fl (85-98); Mean Platelet Volume 10.1 fL (7.4-10.4); Monocytes # 0.3 10^3/uL (0.2-0.9); Monocytes % 5.7 %; Neutrophils # 3.34 10^3/uL (1.8-7.7); Neutrophils % 70.8 %; Nucleated Red Blood Cells % 0 %; Platelet Count 74 10^3/cmm (157-399); Red Blood Count 3.14 10^6/uL (3.85-5.65); Red Cell Distribution Width 16.8 % (12.1-15.1); White Blood Count 4.72 10^3/uL (3.29-11.43)
[2023-06-10 13:02] LABS: Basophils % 0.9 %; Eosinophils # 0.1 10^3/uL (0.0-0.8); Eosinophils % 2.2 %; Hematocrit 30.9 % (36-47); Lymphocytes % 43.4 %; Mean Corpuscular HGB Conc 32.4 g/dL (30-55); Mean Corpuscular Hemoglobin 33.2 pg (27-33); Mean Corpuscular Volume 102.7 fl (85-98); Monocytes # 0.2 10^3/uL (0.2-0.9); Monocytes % 6.6 %; Neutrophils # 1.04 10^3/uL (1.8-7.7); Nucleated Red Blood Cells % 0 %; Red Blood Count 3.01 10^6/uL (3.85-5.65); White Blood Count 2.26 10^3/uL (3.29-11.43)
[2023-06-10 13:34] LABS: Platelet Count 17 10^3/cmm (157-399); Slide Review Slide Review Perform
[2023-06-13 11:00] LABS: Basophils % 0.4 %; Eosinophils % 1.8 %; Hematocrit 31.2 % (36-47); Lymphocytes # 1.1 10^3/uL (0.8-4.8); Mean Corpuscular HGB Conc 32.4 g/dL (30-55); Mean Corpuscular Hemoglobin 33.4 pg (27-33); Mean Corpuscular Volume 103.3 fl (85-98); Monocytes # 0.1 10^3/uL (0.2-0.9); Monocytes % 3.1 %; Neutrophils # 1.05 10^3/uL (1.8-7.7); Neutrophils % 46.7 %; Nucleated Red Blood Cells % 0 %; Red Blood Count 3.02 10^6/uL (3.85-5.65); White Blood Count 2.25 10^3/uL (3.29-11.43)
[2023-06-13 11:20] LABS: Platelet Count 15 10^3/cmm (157-399)
[2023-06-13 11:24] LABS: Slide Review Slide Review Perform
[2023-06-17 14:18] LABS: Basophils % 0.7 %; Eosinophils % 2.1 %; Hematocrit 32.2 % (36-47); Lymphocytes % 70.6 %; Mean Corpuscular HGB Conc 32.3 g/dL (30-55); Mean Corpuscular Hemoglobin 33.5 pg (27-33); Mean Corpuscular Volume 103.9 fl (85-98); Monocytes % 0.7 %; Neutrophils % 25.2 %; Nucleated Red Blood Cells % 0 %; Platelet Count 38 10^3/cmm (157-399); Red Cell Distribution Width 17.5 % (12.1-15.1); White Blood Count 1.43 10^3/uL (3.29-11.43)
[2023-06-17 14:52] LABS: Alanine Aminotransferase 17 U/L (0-33); Albumin Level 4.3 g/dL (3.5-5.2); Alkaline Phosphatase 107 U/L (35-105); Blood Urea Nitrogen 12 mg/dL (8-23); Carbon Dioxide 25 mmol/L (22-29); Chloride 99 mmol/L (98-107); Globulin 2.5 g/dL (1.3-4.6); Glucose 93 mg/dL (65-115); Osmolality Calculated 281 mOsm/kg (285-295); Sodium 136 mmol/L (136-145); Total Bilirubin 0.7 mg/dL (0.15-1.2); Total Protein 6.8 g/dL (6.6-8.7)
[2023-06-17 14:56] LABS: Anion Gap 16.3 (5-19); Aspartate Amino Transferase 24 U/L (0-32); Potassium 4.3 mmol/L (3.5-5.1)
[2023-06-17 14:58] LABS: Neutrophils # 0.36 10^3/uL (1.8-7.7); Slide Review Slide Review Perform
[2023-06-24 13:03] LABS: Basophils % 0.6 %; Eosinophils % 2.4 %; Hematocrit 33.3 % (36-47); Lymphocytes # 1.2 10^3/uL (0.8-4.8); Lymphocytes % 71.3 %; Mean Corpuscular HGB Conc 31.2 g/dL (30-55); Mean Corpuscular Hemoglobin 32.8 pg (27-33); Mean Platelet Volume 9.8 fL (7.4-10.4); Monocytes # 0.2 10^3/uL (0.2-0.9); Monocytes % 9.8 %; Neutrophils % 15.9 %; Nucleated Red Blood Cells % 0 %; Platelet Count 111 10^3/cmm (157-399); Red Blood Count 3.17 10^6/uL (3.85-5.65); Red Cell Distribution Width 17.9 % (12.1-15.1); White Blood Count 1.64 10^3/uL (3.29-11.43)
[2023-06-24 13:07] LABS: Neutrophils # 0.26 10^3/uL (1.8-7.7)
== END 2023-06-27 23:59 | disposition home or self-care (01) ==
PROVIDERS: PCP Internal Medicine; Visit Provider Internal Medicine Medical Oncology
DX: Z53.9 Procedure and treatment not carried out, unspecified reason (principal); C92.01 Acute myeloblastic leukemia, in remission; D69.6 Thrombocytopenia, unspecified
CPT/HCPCS: 36591; 80053; 85025; 86850; 86900; 96375; 96413; J0894; J1642; J2405; J7050

== ENCOUNTER 2023-07-01 15:39 | Outpatient (CLI) | payer MEDICARE, MEDICAID, SELFPAY ==
--- NOTE | 2023-07-01 15:54 | XRR_ITS ---
PROCEDURE INFORMATION: Exam: XR Left Knee Exam date and time: 07/01/2023 3:56 PM Age: 73 years old Clinical indication: Pain; Knee; Left; Patient HX: HX of leukemia; Additional info: Left knee pain TECHNIQUE: Imaging protocol: Radiologic exam of the left knee. Views: 3 views. Other technique: CR XR foot LT min 3V* [id number] 02/12/2023 3: 02 PM COMPARISON: No relevant prior studies available. FINDINGS: Bones/joints: Normal. Soft tissues: Normal. XR/XR knee LT 3V* [id number] IMPRESSION: No acute findings.
== END 2023-07-01 15:40 | disposition home or self-care (01) ==
LOC: RAD 15:45
PROVIDERS: PCP Internal Medicine; Visit Provider Nurse Practitioner Family
DX: M25.562 Pain in left knee (principal)
CPT/HCPCS: 73562

== ENCOUNTER 2023-07-22 09:35 | Oncology outpatient (recurring) (ONCR) | payer MEDICARE, MEDICAID, SELFPAY ==
[2023-07-01 13:35] LABS: Basophils % 0.3 %; Hematocrit 32.1 % (36-47); Mean Corpuscular HGB Conc 31.8 g/dL (30-55); Mean Corpuscular Hemoglobin 33.8 pg (27-33); Mean Corpuscular Volume 106.3 fl (85-98); Mean Platelet Volume 11.1 fL (7.4-10.4); Monocytes # 0.6 10^3/uL (0.2-0.9); Monocytes % 18.7 %; Neutrophils % 44.3 %; Nucleated Red Blood Cells % 0 %; Platelet Count 88 10^3/cmm (157-399); Red Blood Count 3.02 10^6/uL (3.85-5.65); Red Cell Distribution Width 18.1 % (12.1-15.1); White Blood Count 2.94 10^3/uL (3.29-11.43)
[2023-07-08 14:16] LABS: Basophils % 0.2 %; Eosinophils % 0.9 %; Hematocrit 35.2 % (36-47); Lymphocytes # 1.3 10^3/uL (0.8-4.8); Lymphocytes % 27.8 %; Mean Corpuscular HGB Conc 32.1 g/dL (30-55); Mean Corpuscular Hemoglobin 33.6 pg (27-33); Mean Corpuscular Volume 104.8 fl (85-98); Mean Platelet Volume 10.2 fL (7.4-10.4); Monocytes # 0.8 10^3/uL (0.2-0.9); Monocytes % 17.2 %; Neutrophils # 2.43 10^3/uL (1.8-7.7); Neutrophils % 53.7 %; Nucleated Red Blood Cells % 0 %; Platelet Count 77 10^3/cmm (157-399); Red Blood Count 3.36 10^6/uL (3.85-5.65); Red Cell Distribution Width 17.6 % (12.1-15.1); White Blood Count 4.53 10^3/uL (3.29-11.43)
[2023-07-15 14:42] LABS: Basophils % 0.2 %; Eosinophils % 0.7 %; Lymphocytes # 1.1 10^3/uL (0.8-4.8); Lymphocytes % 24.9 %; Mean Corpuscular Hemoglobin 33.5 pg (27-33); Mean Corpuscular Volume 104.8 fl (85-98); Monocytes # 0.8 10^3/uL (0.2-0.9); Monocytes % 18.3 %; Neutrophils # 2.49 10^3/uL (1.8-7.7); Neutrophils % 55.5 %; Nucleated Red Blood Cells % 0 %; Platelet Count 90 10^3/cmm (157-399); Red Blood Count 3.34 10^6/uL (3.85-5.65); Red Cell Distribution Width 17.6 % (12.1-15.1); White Blood Count 4.49 10^3/uL (3.29-11.43)
--- NOTE | 2023-07-15 16:02 | XRR_ITS ---
PROCEDURE INFORMATION: Exam: XR Chest Exam date and time: 07/15/2023 4:06 PM Age: 73 years old Clinical indication: Cough; Prior surgery; Surgery date: 6+ months; Surgery type: Port; Patient HX: HX of leukemia TECHNIQUE: Imaging protocol: Radiologic exam of the chest. Views: 2 views. COMPARISON: CR XR chest 1V portable [id number] 10/16/2022 7:10 PM FINDINGS: Tubes, catheters and devices: Unchanged left chest MediPort. Lungs: Minimal lingular atelectasis or infiltrate. Pleural spaces: Unremarkable. No pleural effusion. No pneumothorax. Heart/Mediastinum: Unremarkable. No cardiomegaly. Bones/joints: Unremarkable. Other findings: Unchanged right hemidiaphragmatic eventration. XR/XR chest 2V* [id number] IMPRESSION: Minimal lingular atelectasis or infiltrate. Correlate for pulmonary infection.
[2023-07-22 10:04] LABS: Basophils % 0.2 %; Eosinophils % 0.7 %; Hematocrit 34.1 % (36-47); Lymphocytes # 1.3 10^3/uL (0.8-4.8); Mean Corpuscular HGB Conc 33.1 g/dL (30-55); Mean Corpuscular Hemoglobin 33.9 pg (27-33); Mean Corpuscular Volume 102.4 fl (85-98); Mean Platelet Volume 9.1 fL (7.4-10.4); Monocytes # 0.9 10^3/uL (0.2-0.9); Monocytes % 15.5 %; Neutrophils % 61.1 %; Nucleated Red Blood Cells % 0 %; Platelet Count 90 10^3/cmm (157-399); Red Blood Count 3.33 10^6/uL (3.85-5.65); Red Cell Distribution Width 16.8 % (12.1-15.1); White Blood Count 5.73 10^3/uL (3.29-11.43)
[2023-07-22 10:27] LABS: Alanine Aminotransferase 16 U/L (0-33); Albumin Level 4.4 g/dL (3.5-5.2); Alkaline Phosphatase 121 U/L (35-105); Aspartate Amino Transferase 27 U/L (0-32); Blood Urea Nitrogen 11 mg/dL (8-23); Calcium 9.4 mg/dL (8.5-10.5); Carbon Dioxide 25 mmol/L (22-29); Chloride 101 mmol/L (98-107); Globulin 2.5 g/dL (1.3-4.6); Glucose 99 mg/dL (65-115); Osmolality Calculated 283 mOsm/kg (285-295); Sodium 137 mmol/L (136-145); Total Bilirubin 0.7 mg/dL (0.15-1.2); Total Protein 6.9 g/dL (6.6-8.7)
[2023-07-22 10:30] LABS: Anion Gap 14.8 (5-19); Potassium 3.8 mmol/L (3.5-5.1)
[2023-07-22 12:51] LABS: Thyroid Stimulating Hormone 5.32 uIU/mL (0.27-4.20); Vitamin B12 379 pg/mL (232-1245)
== END 2023-07-28 23:59 | disposition home or self-care (01) ==
PROVIDERS: PCP Internal Medicine; Visit Provider Internal Medicine Medical Oncology
DX: Z53.9 Procedure and treatment not carried out, unspecified reason (principal); C92.01 Acute myeloblastic leukemia, in remission; F41.9 Anxiety disorder, unspecified; F32.A Depression, unspecified; Z79.899 Other long term (current) drug therapy
CPT/HCPCS: 36591; 71046; 80053; 82607; 84443; 85025; 99214; J1642

== ENCOUNTER 2023-08-16 14:57 | Outpatient (CLI) | payer MEDICARE, MEDICAID, SELFPAY ==
--- NOTE | 2023-08-16 15:05 | XR_ITS ---
WS: [id number] Exam: XR chest 2V* [id number] Date/Time of Exam: 08/16/2023 3:07 PM Reason For Exam: COPD Comparison 07/15/2023. The lungs are fully expanded and clear. Normal cardiomediastinal silhouette. No pleural effusions. A LEFT subclavian port ends at the cavoatrial junction. Bony structures are intact. IMPRESSION: 1. No acute cardiopulmonary finding.
== END 2023-08-16 14:58 | disposition home or self-care (01) ==
LOC: RAD 15:00
PROVIDERS: PCP Internal Medicine; Visit Provider Internal Medicine
DX: J44.9 Chronic obstructive pulmonary disease, unspecified (principal)
CPT/HCPCS: 71046

== ENCOUNTER 2023-08-26 13:45 | Oncology outpatient (recurring) (ONCR) | payer MEDICARE, MEDICAID, SELFPAY ==
[2023-07-29 11:28] LABS: Basophils % 0.2 %; Eosinophils # 0.1 10^3/uL (0.0-0.8); Hematocrit 34.1 % (36-47); Lymphocytes # 1.2 10^3/uL (0.8-4.8); Lymphocytes % 20.1 %; Mean Corpuscular HGB Conc 32.6 g/dL (30-55); Mean Corpuscular Hemoglobin 33.7 pg (27-33); Mean Corpuscular Volume 103.6 fl (85-98); Mean Platelet Volume 10.2 fL (7.4-10.4); Monocytes # 0.8 10^3/uL (0.2-0.9); Monocytes % 12.9 %; Neutrophils # 3.88 10^3/uL (1.8-7.7); Nucleated Red Blood Cells % 0 %; Platelet Count 97 10^3/cmm (157-399); Red Blood Count 3.29 10^6/uL (3.85-5.65); Red Cell Distribution Width 16.7 % (12.1-15.1); White Blood Count 5.97 10^3/uL (3.29-11.43)
[2023-07-29 11:51] LABS: Alanine Aminotransferase 14 U/L (0-33); Albumin Level 4.2 g/dL (3.5-5.2); Alkaline Phosphatase 105 U/L (35-105); Blood Urea Nitrogen 9 mg/dL (8-23); Calcium 9.3 mg/dL (8.5-10.5); Carbon Dioxide 25 mmol/L (22-29); Chloride 103 mmol/L (98-107); Globulin 2.6 g/dL (1.3-4.6); Glucose 96 mg/dL (65-115); Osmolality Calculated 285 mOsm/kg (285-295); Sodium 138 mmol/L (136-145); Total Bilirubin 0.5 mg/dL (0.15-1.2); Total Protein 6.8 g/dL (6.6-8.7)
[2023-07-29 11:54] LABS: Anion Gap 14.4 (5-19); Aspartate Amino Transferase 29 U/L (0-32); Lactate Dehydrogenase 293 U/L (135-214); Potassium 4.4 mmol/L (3.5-5.1)
[2023-07-29] MEDS: sodium chloride 0.9% 250 ML 75 ML IV (13:00)
[2023-07-29] MEDS: ondansetron 2 mg/ML SDV 2 mL 8 MG IVP (13:03)
[2023-07-29] MEDS: SODIUM CHLORIDE 0.9% IV (13:51)
[2023-07-29] MEDS: DECITABINE IV (13:51)
[2023-07-29 15:17] VITALS: BP 147/71; PULSE 61; RESP 16; TEMP 36.6; O2SAT 95
[2023-07-30 13:15] VITALS: BP 128/73; PULSE 57; RESP 18; TEMP 36.9; O2SAT 98
[2023-07-30] MEDS: sodium chloride 0.9% 250 ML 75 ML IV (13:23)
[2023-07-30] MEDS: ondansetron 2 mg/ML SDV 2 mL 8 MG IVP (13:24)
[2023-07-30] MEDS: SODIUM CHLORIDE 0.9% IV (14:09)
[2023-07-30] MEDS: DECITABINE IV (14:09)
[2023-07-30 15:40] VITALS: BP 147/77; PULSE 67; RESP 17; TEMP 37.1; O2SAT 95
[2023-07-31] MEDS: sodium chloride 0.9% 250 ML 75 ML IV (13:48)
[2023-07-31] MEDS: ondansetron 2 mg/ML SDV 2 mL 8 MG IVP (13:49)
[2023-07-31] MEDS: SODIUM CHLORIDE 0.9% IV (14:37)
[2023-07-31] MEDS: DECITABINE IV (14:37)
[2023-07-31 15:43] VITALS: BP 161/76; PULSE 60; RESP 16; TEMP 36.8; O2SAT 94
[2023-08-01 09:27] VITALS: BP 114/67; PULSE 57; RESP 16; TEMP 36.8; O2SAT 95
[2023-08-01] MEDS: ondansetron 2 mg/ML SDV 2 mL 8 MG IVP (09:29)
[2023-08-01] MEDS: sodium chloride 0.9% 250 ML 75 ML IV (09:29)
[2023-08-01] MEDS: DECITABINE IV (09:48)
[2023-08-01] MEDS: SODIUM CHLORIDE 0.9% IV (09:48)
[2023-08-01 11:02] VITALS: BP 146/70; PULSE 53; RESP 16; TEMP 36.3; O2SAT 96
[2023-08-02] MEDS: sodium chloride 0.9% 250 ML 75 ML IV (09:03)
[2023-08-02] MEDS: ondansetron 2 mg/ML SDV 2 mL 8 MG IVP (09:05)
[2023-08-02] MEDS: SODIUM CHLORIDE 0.9% IV (09:28)
[2023-08-02] MEDS: DECITABINE IV (09:28)
[2023-08-02 10:18] VITALS: BP 134/65; PULSE 53; O2SAT 95
[2023-08-06 13:42] LABS: Basophils % 0.5 %; Eosinophils # 0.1 10^3/uL (0.0-0.8); Eosinophils % 1.4 %; Hematocrit 30.4 % (36-47); Lymphocytes % 22.7 %; Mean Corpuscular HGB Conc 31.9 g/dL (30-55); Mean Corpuscular Hemoglobin 33.3 pg (27-33); Mean Corpuscular Volume 104.5 fl (85-98); Mean Platelet Volume 10.5 fL (7.4-10.4); Monocytes # 0.1 10^3/uL (0.2-0.9); Neutrophils # 3.05 10^3/uL (1.8-7.7); Neutrophils % 71.2 %; Nucleated Red Blood Cells % 0 %; Platelet Count 62 10^3/cmm (157-399); Red Blood Count 2.91 10^6/uL (3.85-5.65); Red Cell Distribution Width 16.6 % (12.1-15.1); White Blood Count 4.28 10^3/uL (3.29-11.43)
[2023-08-06 14:07] LABS: Alanine Aminotransferase 14 U/L (0-33); Albumin Level 4.1 g/dL (3.5-5.2); Alkaline Phosphatase 97 U/L (35-105); Aspartate Amino Transferase 23 U/L (0-32); Blood Urea Nitrogen 12 mg/dL (8-23); Calcium 8.8 mg/dL (8.5-10.5); Carbon Dioxide 26 mmol/L (22-29); Chloride 104 mmol/L (98-107); Globulin 2.1 g/dL (1.3-4.6); Glucose 145 mg/dL (65-115); Osmolality Calculated 290 mOsm/kg (285-295); Sodium 139 mmol/L (136-145); Total Bilirubin 0.6 mg/dL (0.15-1.2); Total Protein 6.2 g/dL (6.6-8.7)
[2023-08-12 13:20] LABS: Basophils % 0.5 %; Eosinophils # 0.1 10^3/uL (0.0-0.8); Eosinophils % 2.4 %; Hematocrit 29.6 % (36-47); Lymphocytes % 47.1 %; Mean Corpuscular HGB Conc 32.4 g/dL (30-55); Mean Corpuscular Hemoglobin 33.9 pg (27-33); Mean Corpuscular Volume 104.6 fl (85-98); Monocytes # 0.1 10^3/uL (0.2-0.9); Monocytes % 4.3 %; Neutrophils % 44.7 %; Nucleated Red Blood Cells % 0 %; Red Blood Count 2.83 10^6/uL (3.85-5.65); Red Cell Distribution Width 16.3 % (12.1-15.1)
[2023-08-12 13:47] LABS: Slide Review Slide Review Perform
[2023-08-12 13:48] LABS: Neutrophils # 0.94 10^3/uL (1.8-7.7); Platelet Count 17 10^3/cmm (157-399)
[2023-08-12 13:52] LABS: Thyroid Stimulating Hormone 2.91 uIU/mL (0.27-4.20)
[2023-08-19 13:13] LABS: Basophils % 0.7 %; Eosinophils % 1.4 %; Hematocrit 30.3 % (36-47); Lymphocytes % 70.3 %; Mean Corpuscular HGB Conc 32.7 g/dL (30-55); Mean Corpuscular Volume 104.1 fl (85-98); Monocytes % 1.4 %; Neutrophils % 26.2 %; Nucleated Red Blood Cells % 0 %; Platelet Count 29 10^3/cmm (157-399); Red Blood Count 2.91 10^6/uL (3.85-5.65); Red Cell Distribution Width 17.7 % (12.1-15.1); White Blood Count 1.45 10^3/uL (3.29-11.43)
[2023-08-19 13:16] LABS: Slide Review Slide Review Perform
[2023-08-19 13:17] LABS: Neutrophils # 0.38 10^3/uL (1.8-7.7)
[2023-08-26 13:58] LABS: Basophils % 0.7 %; Eosinophils % 2.8 %; Hematocrit 32.2 % (36-47); Lymphocytes # 1.2 10^3/uL (0.8-4.8); Lymphocytes % 83.7 %; Mean Corpuscular Volume 106.3 fl (85-98); Mean Platelet Volume 10.2 fL (7.4-10.4); Monocytes # 0.1 10^3/uL (0.2-0.9); Monocytes % 4.3 %; Neutrophils % 8.5 %; Nucleated Red Blood Cells % 0 %; Platelet Count 137 10^3/cmm (157-399); Red Blood Count 3.03 10^6/uL (3.85-5.65); Red Cell Distribution Width 18.6 % (12.1-15.1); White Blood Count 1.41 10^3/uL (3.29-11.43)
[2023-08-26 14:02] LABS: Neutrophils # 0.12 10^3/uL (1.8-7.7)
== END 2023-08-27 23:59 | disposition home or self-care (01) ==
PROVIDERS: Nurse Practitioner Family; PCP Internal Medicine; Visit Provider Internal Medicine Medical Oncology
DX: Z53.9 Procedure and treatment not carried out, unspecified reason (principal); C92.01 Acute myeloblastic leukemia, in remission
CPT/HCPCS: 36591; 80053; 83615; 84443; 85025; 86850; 86900; 96375; 96413; J0894; J2405; J7050

== ENCOUNTER 2023-09-25 07:30 | Oncology outpatient (recurring) (ONCR) | payer MEDICARE, MEDICAID, SELFPAY ==
[2023-09-02 14:11] LABS: Basophils % 0.3 %; Lymphocytes % 33.1 %; Mean Corpuscular HGB Conc 32.5 g/dL (30-55); Mean Corpuscular Hemoglobin 34.2 pg (27-33); Mean Corpuscular Volume 105.3 fl (85-98); Mean Platelet Volume 12.4 fL (7.4-10.4); Monocytes # 0.5 10^3/uL (0.2-0.9); Monocytes % 16.1 %; Neutrophils % 48.2 %; Nucleated Red Blood Cells % 0 %; Platelet Count 83 10^3/cmm (157-399); Red Blood Count 3.04 10^6/uL (3.85-5.65); Red Cell Distribution Width 18.6 % (12.1-15.1); White Blood Count 3.11 10^3/uL (3.29-11.43)
[2023-09-02 14:27] LABS: Alanine Aminotransferase 10 U/L (0-33); Albumin Level 4.4 g/dL (3.5-5.2); Alkaline Phosphatase 114 U/L (35-105); Aspartate Amino Transferase 20 U/L (0-32); Blood Urea Nitrogen 10 mg/dL (8-23); Calcium 8.8 mg/dL (8.5-10.5); Carbon Dioxide 25 mmol/L (22-29); Chloride 101 mmol/L (98-107); Globulin 2.7 g/dL (1.3-4.6); Glucose 132 mg/dL (65-115); Osmolality Calculated 285 mOsm/kg (285-295); Sodium 137 mmol/L (136-145); Total Bilirubin 0.7 mg/dL (0.15-1.2); Total Protein 7.1 g/dL (6.6-8.7)
[2023-09-02 14:32] LABS: Anion Gap 15.3 (5-19); Potassium 4.3 mmol/L (3.5-5.1)
[2023-09-03 12:35] LABS: Vitamin B12 407 pg/mL (232-1245)
[2023-09-09 13:41] LABS: Basophils % 0.3 %; Eosinophils % 0.6 %; Hematocrit 31.2 % (36-47); Lymphocytes # 1.3 10^3/uL (0.8-4.8); Lymphocytes % 38.6 %; Mean Corpuscular HGB Conc 31.4 g/dL (30-55); Mean Corpuscular Hemoglobin 33.4 pg (27-33); Mean Corpuscular Volume 106.5 fl (85-98); Mean Platelet Volume 10.3 fL (7.4-10.4); Monocytes # 0.6 10^3/uL (0.2-0.9); Monocytes % 18.5 %; Neutrophils # 1.37 10^3/uL (1.8-7.7); Neutrophils % 41.7 %; Nucleated Red Blood Cells % 0 %; Platelet Count 84 10^3/cmm (157-399); Red Blood Count 2.93 10^6/uL (3.85-5.65); Red Cell Distribution Width 18.6 % (12.1-15.1); White Blood Count 3.29 10^3/uL (3.29-11.43)
[2023-09-16 12:07] LABS: Basophils % 0.2 %; Eosinophils % 0.2 %; Hematocrit 32.8 % (36-47); Lymphocytes # 1.3 10^3/uL (0.8-4.8); Lymphocytes % 30.3 %; Mean Corpuscular Hemoglobin 33.9 pg (27-33); Mean Corpuscular Volume 105.8 fl (85-98); Mean Platelet Volume 10.9 fL (7.4-10.4); Monocytes # 0.8 10^3/uL (0.2-0.9); Monocytes % 17.7 %; Neutrophils # 2.17 10^3/uL (1.8-7.7); Neutrophils % 51.4 %; Nucleated Red Blood Cells % 0 %; Platelet Count 110 10^3/cmm (157-399); Red Cell Distribution Width 18.8 % (12.1-15.1); White Blood Count 4.23 10^3/uL (3.29-11.43)
[2023-09-25 07:58] LABS: Basophils % 0.2 %; Eosinophils % 0.4 %; Hematocrit 33.3 % (36-47); Lymphocytes # 1.2 10^3/uL (0.8-4.8); Lymphocytes % 26.8 %; Mean Corpuscular HGB Conc 31.8 g/dL (30-55); Mean Corpuscular Hemoglobin 34.1 pg (27-33); Mean Corpuscular Volume 107.1 fl (85-98); Mean Platelet Volume 9.5 fL (7.4-10.4); Monocytes # 0.6 10^3/uL (0.2-0.9); Neutrophils # 2.63 10^3/uL (1.8-7.7); Neutrophils % 57.7 %; Nucleated Red Blood Cells % 0 %; Platelet Count 102 10^3/cmm (157-399); Red Blood Count 3.11 10^6/uL (3.85-5.65); White Blood Count 4.56 10^3/uL (3.29-11.43)
[2023-09-25 08:20] LABS: Alanine Aminotransferase 20 U/L (0-33); Alkaline Phosphatase 112 U/L (35-105); Blood Urea Nitrogen 8 mg/dL (8-23); Calcium 9.1 mg/dL (8.5-10.5); Carbon Dioxide 25 mmol/L (22-29); Chloride 106 mmol/L (98-107); Creatinine Clr Calc Pharmacy 52.2958; Globulin 2.3 g/dL (1.3-4.6); Glucose 113 mg/dL (65-115); Osmolality Calculated 293 mOsm/kg (285-295); Sodium 142 mmol/L (136-145); Total Bilirubin 0.6 mg/dL (0.15-1.2); Total Protein 6.3 g/dL (6.6-8.7)
[2023-09-25 08:21] LABS: Anion Gap 15.2 (5-19); Aspartate Amino Transferase 30 U/L (0-32); Lactate Dehydrogenase 251 U/L (135-214); Potassium 4.2 mmol/L (3.5-5.1)
== END 2023-09-27 23:59 | disposition home or self-care (01) ==
PROVIDERS: Nurse Practitioner Family; PCP Internal Medicine; Visit Provider Internal Medicine Medical Oncology
DX: Z53.9 Procedure and treatment not carried out, unspecified reason (principal); F41.9 Anxiety disorder, unspecified; F32.9 Major depressive disorder, single episode, unspecified; C92.01 Acute myeloblastic leukemia, in remission
CPT/HCPCS: 36591; 80053; 82607; 83615; 85025; 99214

== ENCOUNTER 2023-10-24 13:41 | Oncology outpatient (recurring) (ONCR) | payer MEDICARE, MEDICAID, SELFPAY ==
[2023-10-07 09:05] VITALS: BP 171/72; PULSE 57; RESP 18; O2SAT 96
[2023-10-07 09:30] LABS: Basophils % 0.4 %; Eosinophils % 0.8 %; Hematocrit 34.5 % (36-47); Lymphocytes # 1.3 10^3/uL (0.8-4.8); Lymphocytes % 25.2 %; Mean Corpuscular HGB Conc 31.3 g/dL (30-55); Mean Corpuscular Hemoglobin 33.1 pg (27-33); Mean Corpuscular Volume 105.8 fl (85-98); Mean Platelet Volume 10.6 fL (7.4-10.4); Monocytes # 0.6 10^3/uL (0.2-0.9); Monocytes % 12.7 %; Neutrophils # 2.99 10^3/uL (1.8-7.7); Neutrophils % 59.3 %; Nucleated Red Blood Cells % 0 %; Platelet Count 98 10^3/cmm (157-399); Red Blood Count 3.26 10^6/uL (3.85-5.65); Red Cell Distribution Width 17.5 % (12.1-15.1); White Blood Count 5.04 10^3/uL (3.29-11.43)
[2023-10-07] MEDS: sodium chloride 0.9% 250 ML 75 ML IV (10:18)
[2023-10-07] MEDS: ondansetron 2 mg/ML SDV 2 mL 8 MG IVP (10:18)
[2023-10-07] MEDS: SODIUM CHLORIDE 0.9% IV (10:39)
[2023-10-07] MEDS: DECITABINE IV (10:39)
[2023-10-07 12:10] VITALS: BP 170/68; PULSE 58; RESP 17; TEMP 36.2; O2SAT 96
[2023-10-08] MEDS: sodium chloride 0.9% 250 ML 75 ML IV (09:29)
[2023-10-08] MEDS: ondansetron 2 mg/ML SDV 2 mL 8 MG IVP (09:30)
[2023-10-08 09:35] VITALS: BP 165/73; PULSE 55; O2SAT 95
[2023-10-08] MEDS: DECITABINE IV (10:08)
[2023-10-08] MEDS: SODIUM CHLORIDE 0.9% IV (10:08)
[2023-10-08 11:40] VITALS: BP 155/75; PULSE 60; RESP 16; O2SAT 94
[2023-10-09 09:00] VITALS: BP 170/69; PULSE 66; RESP 16; TEMP 36.8; O2SAT 93
[2023-10-09] MEDS: sodium chloride 0.9% 250 ML 75 ML IV (09:18)
[2023-10-09] MEDS: ondansetron 2 mg/ML SDV 2 mL 8 MG IVP (09:18)
[2023-10-09] MEDS: SODIUM CHLORIDE 0.9% IV (09:51)
[2023-10-09] MEDS: DECITABINE IV (09:51)
[2023-10-09 11:00] VITALS: BP 170/75; PULSE 58; RESP 16; O2SAT 94
[2023-10-10 10:40] VITALS: BP 153/74; PULSE 63; RESP 16; TEMP 36.7; O2SAT 97
[2023-10-10] MEDS: ondansetron 2 mg/ML SDV 2 mL 8 MG IVP (10:55)
[2023-10-10] MEDS: sodium chloride 0.9% 250 ML 75 ML IV (10:55)
[2023-10-10] MEDS: SODIUM CHLORIDE 0.9% IV (11:13)
[2023-10-10] MEDS: DECITABINE IV (11:13)
[2023-10-10 12:40] VITALS: BP 148/66; PULSE 63; RESP 16; TEMP 36.4; O2SAT 95
[2023-10-11 08:00] VITALS: BP 131/74; PULSE 59; RESP 16; TEMP 36.5; O2SAT 95
[2023-10-11] MEDS: ondansetron 2 mg/ML SDV 2 mL 8 MG IVP (08:17)
[2023-10-11] MEDS: sodium chloride 0.9% 250 ML 100 ML IV (08:17)
[2023-10-11] MEDS: DECITABINE IV (08:40)
[2023-10-11] MEDS: SODIUM CHLORIDE 0.9% IV (08:40)
[2023-10-11 09:55] VITALS: BP 130/69; PULSE 58; RESP 16; TEMP 36.5; O2SAT 99
[2023-10-14 14:23] LABS: Basophils % 0.4 %; Eosinophils # 0.1 10^3/uL (0.0-0.8); Hematocrit 35.1 % (36-47); Lymphocytes # 1.3 10^3/uL (0.8-4.8); Lymphocytes % 19.4 %; Mean Corpuscular HGB Conc 31.3 g/dL (30-55); Mean Corpuscular Hemoglobin 33.7 pg (27-33); Mean Corpuscular Volume 107.7 fl (85-98); Mean Platelet Volume 11.8 fL (7.4-10.4); Monocytes # 0.3 10^3/uL (0.2-0.9); Monocytes % 4.6 %; Neutrophils # 4.97 10^3/uL (1.8-7.7); Nucleated Red Blood Cells % 0 %; Platelet Count 97 10^3/cmm (157-399); Red Blood Count 3.26 10^6/uL (3.85-5.65); Red Cell Distribution Width 17.2 % (12.1-15.1); White Blood Count 6.81 10^3/uL (3.29-11.43)
[2023-10-21 13:39] LABS: Basophils % 0.4 %; Eosinophils # 0.1 10^3/uL (0.0-0.8); Eosinophils % 2.1 %; Hematocrit 30.9 % (36-47); Lymphocytes # 1.2 10^3/uL (0.8-4.8); Lymphocytes % 42.1 %; Mean Corpuscular HGB Conc 32.4 g/dL (30-55); Mean Corpuscular Volume 105.1 fl (85-98); Monocytes # 0.1 10^3/uL (0.2-0.9); Monocytes % 4.3 %; Neutrophils # 1.41 10^3/uL (1.8-7.7); Neutrophils % 50.4 %; Nucleated Red Blood Cells % 0 %; Red Blood Count 2.94 10^6/uL (3.85-5.65)
[2023-10-21 14:26] LABS: Slide Review Slide Review Perform
[2023-10-21 14:30] LABS: Platelet Count 25 10^3/cmm (157-399)
--- NOTE | 2023-10-24 13:44 | XR_ITS ---
WS: [email or web address] Exam: XR chest 2V* [id number] Date/Time of Exam: 10/24/2023 1:44 PM Reason For Exam: cough Comparison 08/16/2023. Lungs are fully expanded and clear. Normal cardiomediastinal silhouette. Bony structures are intact. A LEFT subclavian port ends at the cavoatrial junction in satisfactory position. Bony structures are intact. XR/XR chest 2V* [id number] IMPRESSION: 1. No acute cardiopulmonary finding.
== END 2023-10-27 23:59 | disposition home or self-care (01) ==
PROVIDERS: PCP Internal Medicine; Visit Provider Internal Medicine Medical Oncology
DX: Z53.9 Procedure and treatment not carried out, unspecified reason (principal)
CPT/HCPCS: 36591; 71046; 85025; 96375; 96413; J0894; J2405; J7050

== ENCOUNTER 2023-11-25 13:45 | Oncology outpatient (recurring) (ONCR) | payer MEDICARE, MEDICAID, SELFPAY ==
[2023-10-28 14:30] LABS: Basophils % 0.5 %; Eosinophils # 0.1 10^3/uL (0.0-0.8); Eosinophils % 2.6 %; Hematocrit 32.2 % (36-47); Lymphocytes # 1.1 10^3/uL (0.8-4.8); Lymphocytes % 58.2 %; Mean Corpuscular HGB Conc 31.7 g/dL (30-55); Mean Corpuscular Volume 107.3 fl (85-98); Mean Platelet Volume 10.3 fL (7.4-10.4); Neutrophils % 37.7 %; Nucleated Red Blood Cells % 0 %; Platelet Count 38 10^3/cmm (157-399); Red Cell Distribution Width 18.5 % (12.1-15.1); White Blood Count 1.96 10^3/uL (3.29-11.43)
[2023-10-28 15:00] LABS: Slide Review Slide Review Perform
[2023-10-28 15:01] LABS: Neutrophils # 0.74 10^3/uL (1.8-7.7)
[2023-11-04] MEDS: alteplase 1 mg/mL SDV 2 mL 2 MG INTRACATH (14:42)
[2023-11-04 14:57] LABS: Eosinophils # 0.1 10^3/uL (0.0-0.8); Eosinophils % 4.3 %; Hematocrit 31.4 % (36-47); Lymphocytes % 87.2 %; Mean Corpuscular HGB Conc 31.5 g/dL (30-55); Mean Corpuscular Hemoglobin 34.5 pg (27-33); Mean Corpuscular Volume 109.4 fl (85-98); Mean Platelet Volume 10.7 fL (7.4-10.4); Monocytes % 3.4 %; Neutrophils % 5.1 %; Nucleated Red Blood Cells % 0 %; Platelet Count 148 10^3/cmm (157-399); Red Blood Count 2.87 10^6/uL (3.85-5.65); Red Cell Distribution Width 18.6 % (12.1-15.1); White Blood Count 1.17 10^3/uL (3.29-11.43)
[2023-11-04 15:25] LABS: Neutrophils # 0.06 10^3/uL (1.8-7.7); Slide Review Slide Review Perform
[2023-11-11 10:48] LABS: Basophils % 0.5 %; Eosinophils % 1.6 %; Hematocrit 30.3 % (36-47); Lymphocytes % 51.6 %; Mean Corpuscular Hemoglobin 34.8 pg (27-33); Mean Corpuscular Volume 108.6 fl (85-98); Mean Platelet Volume 10.3 fL (7.4-10.4); Monocytes # 0.2 10^3/uL (0.2-0.9); Neutrophils % 32.8 %; Nucleated Red Blood Cells % 0 %; Platelet Count 74 10^3/cmm (157-399); Red Blood Count 2.79 10^6/uL (3.85-5.65); White Blood Count 1.84 10^3/uL (3.29-11.43)
[2023-11-14 13:08] LABS: Eosinophils % 0.4 %; Hematocrit 30.4 % (36-47); Lymphocytes % 42.3 %; Mean Corpuscular HGB Conc 32.2 g/dL (30-55); Mean Corpuscular Volume 108.6 fl (85-98); Mean Platelet Volume 10.3 fL (7.4-10.4); Monocytes # 0.4 10^3/uL (0.2-0.9); Monocytes % 16.7 %; Neutrophils % 40.2 %; Nucleated Red Blood Cells % 0 %; Platelet Count 62 10^3/cmm (157-399); Red Cell Distribution Width 18.1 % (12.1-15.1); White Blood Count 2.39 10^3/uL (3.29-11.43)
[2023-11-14 13:29] LABS: Alanine Aminotransferase 10 U/L (0-33); Albumin Level 4.2 g/dL (3.5-5.2); Alkaline Phosphatase 89 U/L (35-105); Aspartate Amino Transferase 25 U/L (0-32); Blood Urea Nitrogen 16 mg/dL (8-23); Calcium 9.1 mg/dL (8.5-10.5); Carbon Dioxide 25 mmol/L (22-29); Chloride 106 mmol/L (98-107); Creatinine Clr Calc Pharmacy 53.2196; Globulin 2.1 g/dL (1.3-4.6); Glucose 91 mg/dL (65-115); Osmolality Calculated 291 mOsm/kg (285-295); Sodium 140 mmol/L (136-145); Total Bilirubin 0.4 mg/dL (0.15-1.2); Total Protein 6.3 g/dL (6.6-8.7)
[2023-11-14 13:31] LABS: Anion Gap 13.8 (5-19); Potassium 4.8 mmol/L (3.5-5.1)
[2023-11-14 13:39] LABS: Neutrophils # 0.96 10^3/uL (1.8-7.7)
[2023-11-25 12:52] LABS: Basophils % 0.3 %; Eosinophils % 0.3 %; Hematocrit 31.9 % (36-47); Lymphocytes # 1.2 10^3/uL (0.8-4.8); Lymphocytes % 34.5 %; Mean Corpuscular HGB Conc 32.6 g/dL (30-55); Mean Corpuscular Hemoglobin 35.9 pg (27-33); Mean Platelet Volume 10.5 fL (7.4-10.4); Monocytes # 0.6 10^3/uL (0.2-0.9); Monocytes % 15.9 %; Neutrophils # 1.66 10^3/uL (1.8-7.7); Neutrophils % 48.1 %; Nucleated Red Blood Cells % 0 %; Platelet Count 114 10^3/cmm (157-399); Red Cell Distribution Width 18.5 % (12.1-15.1); White Blood Count 3.45 10^3/uL (3.29-11.43)
== END 2023-11-27 23:59 | disposition home or self-care (01) ==
PROVIDERS: PCP Internal Medicine; Visit Provider Internal Medicine Medical Oncology
DX: C92.01 Acute myeloblastic leukemia, in remission; Z53.9 Procedure and treatment not carried out, unspecified reason
CPT/HCPCS: 36415; 36591; 80053; 85025; 99214; J2997

== ENCOUNTER 2023-12-23 12:45 | Oncology outpatient (recurring) (ONCR) | payer MEDICARE, MEDICAID, SELFPAY ==
[2023-12-02 10:18] LABS: Basophils % 0.3 %; Eosinophils % 0.5 %; Hematocrit 32.9 % (36-47); Lymphocytes # 1.2 10^3/uL (0.8-4.8); Lymphocytes % 32.2 %; Mean Corpuscular HGB Conc 32.5 g/dL (30-55); Mean Corpuscular Hemoglobin 35.3 pg (27-33); Mean Corpuscular Volume 108.6 fl (85-98); Mean Platelet Volume 10.7 fL (7.4-10.4); Monocytes # 0.5 10^3/uL (0.2-0.9); Monocytes % 13.2 %; Neutrophils # 2.03 10^3/uL (1.8-7.7); Neutrophils % 53.5 %; Nucleated Red Blood Cells % 0 %; Platelet Count 128 10^3/cmm (157-399); Red Blood Count 3.03 10^6/uL (3.85-5.65); Red Cell Distribution Width 17.6 % (12.1-15.1); White Blood Count 3.79 10^3/uL (3.29-11.43)
[2023-12-02 12:00] VITALS: BP 132/67; PULSE 61; RESP 16; TEMP 36.4; O2SAT 97
[2023-12-02] MEDS: sodium chloride 0.9% 250 ML 75 ML IV (12:08)
[2023-12-02] MEDS: ondansetron 2 mg/ML SDV 2 mL 8 MG IVP (12:08)
[2023-12-02] MEDS: SODIUM CHLORIDE 0.9% IV (13:24)
[2023-12-02] MEDS: DECITABINE IV (13:24)
[2023-12-03 14:16] VITALS: BP 166/64; PULSE 66; RESP 18; TEMP 36.1; O2SAT 97
[2023-12-03] MEDS: sodium chloride 0.9% 250 ML 75 ML IV (14:22)
[2023-12-03] MEDS: ondansetron 2 mg/ML SDV 2 mL 8 MG IVP (14:23)
[2023-12-03] MEDS: DECITABINE IV (14:33)
[2023-12-03] MEDS: SODIUM CHLORIDE 0.9% IV (14:33)
[2023-12-03 15:33] VITALS: BP 130/58; PULSE 72; RESP 16; TEMP 36.4; O2SAT 97
[2023-12-04] MEDS: sodium chloride 0.9% 250 ML 100 ML IV (14:22)
[2023-12-04] MEDS: ondansetron 2 mg/ML SDV 2 mL 8 MG IVP (14:23)
[2023-12-04 14:28] VITALS: BP 138/63; PULSE 59; RESP 16; TEMP 36.7; O2SAT 98
[2023-12-04] MEDS: SODIUM CHLORIDE 0.9% IV (14:44)
[2023-12-04] MEDS: DECITABINE IV (14:44)
[2023-12-04 16:14] VITALS: BP 146/73; PULSE 60; RESP 16; TEMP 36.6; O2SAT 98
[2023-12-05] MEDS: sodium chloride 0.9% 250 ML 75 ML IV (14:16)
[2023-12-05] MEDS: ondansetron 2 mg/ML SDV 2 mL 8 MG IVP (14:17)
[2023-12-05] MEDS: DECITABINE IV (15:07)
[2023-12-05] MEDS: SODIUM CHLORIDE 0.9% IV (15:07)
[2023-12-05 16:15] VITALS: BP 121/78; PULSE 74; RESP 18; TEMP 36.1; O2SAT 98
[2023-12-06 09:27] VITALS: BP 122/62; PULSE 56; RESP 16; TEMP 36.6; O2SAT 94
[2023-12-06] MEDS: sodium chloride 0.9% 250 ML 75 ML IV (09:30)
[2023-12-06] MEDS: ondansetron 2 mg/ML SDV 2 mL 8 MG IVP (09:31)
[2023-12-06] MEDS: DECITABINE IV (09:49)
[2023-12-06] MEDS: SODIUM CHLORIDE 0.9% IV (09:49)
[2023-12-06 11:05] VITALS: BP 154/72; PULSE 57; RESP 16; TEMP 36.5; O2SAT 95
[2023-12-09 14:08] LABS: Eosinophils % 1.1 %; Hematocrit 32.2 % (36-47); Lymphocytes # 1.1 10^3/uL (0.8-4.8); Lymphocytes % 31.4 %; Mean Corpuscular Hemoglobin 35.4 pg (27-33); Mean Corpuscular Volume 110.7 fl (85-98); Mean Platelet Volume 10.4 fL (7.4-10.4); Monocytes # 0.2 10^3/uL (0.2-0.9); Monocytes % 5.9 %; Neutrophils # 2.14 10^3/uL (1.8-7.7); Neutrophils % 60.8 %; Nucleated Red Blood Cells % 0 %; Platelet Count 80 10^3/cmm (157-399); Red Blood Count 2.91 10^6/uL (3.85-5.65); Red Cell Distribution Width 17.2 % (12.1-15.1); White Blood Count 3.53 10^3/uL (3.29-11.43)
[2023-12-16 13:31] LABS: Basophils % 0.4 %; Eosinophils % 1.6 %; Hematocrit 30.9 % (36-47); Lymphocytes # 1.3 10^3/uL (0.8-4.8); Lymphocytes % 52.5 %; Mean Corpuscular HGB Conc 32.7 g/dL (30-55); Mean Corpuscular Hemoglobin 35.1 pg (27-33); Mean Corpuscular Volume 107.3 fl (85-98); Mean Platelet Volume 9.9 fL (7.4-10.4); Monocytes # 0.1 10^3/uL (0.2-0.9); Monocytes % 4.5 %; Neutrophils # 0.99 10^3/uL (1.8-7.7); Neutrophils % 40.6 %; Nucleated Red Blood Cells % 0 %; Red Blood Count 2.88 10^6/uL (3.85-5.65); Red Cell Distribution Width 16.6 % (12.1-15.1); White Blood Count 2.44 10^3/uL (3.29-11.43)
[2023-12-16 13:57] LABS: Platelet Count 23 10^3/cmm (157-399)
[2023-12-16 13:58] LABS: Slide Review Slide Review Perform
[2023-12-23 11:00] LABS: Basophils % 0.7 %; Eosinophils % 1.4 %; Hematocrit 29.7 % (36-47); Lymphocytes % 67.9 %; Mean Corpuscular Hemoglobin 34.9 pg (27-33); Mean Corpuscular Volume 109.2 fl (85-98); Mean Platelet Volume 10.7 fL (7.4-10.4); Monocytes % 1.4 %; Neutrophils % 28.6 %; Nucleated Red Blood Cells % 0 %; Platelet Count 35 10^3/cmm (157-399); Red Blood Count 2.72 10^6/uL (3.85-5.65); Red Cell Distribution Width 17.8 % (12.1-15.1)
[2023-12-23 11:30] LABS: Free T4 Free Thyroxine 1.06 ng/dL (0.82-1.77); Thyroid Stimulating Hormone 2.51 uIU/mL (0.27-4.20)
[2023-12-23 11:31] LABS: Slide Review Slide Review Perform
== END 2023-12-28 23:59 | disposition home or self-care (01) ==
PROVIDERS: PCP Internal Medicine; Visit Provider Internal Medicine Medical Oncology
DX: C92.00 Acute myeloblastic leukemia, not having achieved remission (principal); Z53.9 Procedure and treatment not carried out, unspecified reason; E03.9 Hypothyroidism, unspecified
CPT/HCPCS: 36591; 84439; 84443; 85025; 96375; 96413; 99214; J0894; J2405; J7050

== ENCOUNTER 2024-01-27 08:30 | Oncology outpatient (recurring) (ONCR) | payer MEDICARE, MEDICAID, SELFPAY ==
[2024-01-01 13:19] LABS: Basophils % 0.6 %; Eosinophils % 2.3 %; Hematocrit 30.7 % (36-47); Lymphocytes # 1.4 10^3/uL (0.8-4.8); Lymphocytes % 78.9 %; Mean Corpuscular HGB Conc 31.9 g/dL (30-55); Mean Corpuscular Hemoglobin 35.5 pg (27-33); Mean Corpuscular Volume 111.2 fl (85-98); Mean Platelet Volume 10.2 fL (7.4-10.4); Monocytes # 0.1 10^3/uL (0.2-0.9); Monocytes % 6.3 %; Neutrophils % 11.9 %; Nucleated Red Blood Cells % 0 %; Platelet Count 160 10^3/cmm (157-399); Red Blood Count 2.76 10^6/uL (3.85-5.65); Red Cell Distribution Width 18.3 % (12.1-15.1); White Blood Count 1.75 10^3/uL (3.29-11.43)
[2024-01-01 13:39] LABS: Alanine Aminotransferase 11 U/L (0-33); Albumin Level 4.6 g/dL (3.5-5.2); Alkaline Phosphatase 73 U/L (35-105); Aspartate Amino Transferase 19 U/L (0-32); Blood Urea Nitrogen 27 mg/dL (8-23); Calcium 9.4 mg/dL (8.5-10.5); Carbon Dioxide 24 mmol/L (22-29); Chloride 104 mmol/L (98-107); Globulin 2.3 g/dL (1.3-4.6); Glucose 79 mg/dL (65-115); Osmolality Calculated 290 mOsm/kg (285-295); Sodium 138 mmol/L (136-145); Total Bilirubin 0.6 mg/dL (0.15-1.2); Total Protein 6.9 g/dL (6.6-8.7)
[2024-01-01 14:09] LABS: Neutrophils # 0.21 10^3/uL (1.8-7.7)
[2024-01-06 13:42] LABS: Eosinophils % 0.9 %; Hematocrit 30.7 % (36-47); Lymphocytes # 1.2 10^3/uL (0.8-4.8); Lymphocytes % 54.7 %; Mean Corpuscular HGB Conc 32.2 g/dL (30-55); Mean Corpuscular Hemoglobin 35.6 pg (27-33); Mean Corpuscular Volume 110.4 fl (85-98); Mean Platelet Volume 10.7 fL (7.4-10.4); Monocytes # 0.3 10^3/uL (0.2-0.9); Monocytes % 13.9 %; Neutrophils % 30.1 %; Nucleated Red Blood Cells % 0 %; Platelet Count 115 10^3/cmm (157-399); Red Blood Count 2.78 10^6/uL (3.85-5.65); Red Cell Distribution Width 17.7 % (12.1-15.1); White Blood Count 2.23 10^3/uL (3.29-11.43)
[2024-01-06 13:46] LABS: Neutrophils # 0.67 10^3/uL (1.8-7.7)
[2024-01-13 13:24] LABS: Eosinophils % 0.3 %; Hematocrit 29.8 % (36-47); Lymphocytes # 1.3 10^3/uL (0.8-4.8); Lymphocytes % 40.6 %; Mean Corpuscular HGB Conc 31.9 g/dL (30-55); Mean Corpuscular Hemoglobin 36.3 pg (27-33); Mean Corpuscular Volume 113.7 fl (85-98); Mean Platelet Volume 9.9 fL (7.4-10.4); Monocytes # 0.5 10^3/uL (0.2-0.9); Neutrophils # 1.37 10^3/uL (1.8-7.7); Neutrophils % 43.8 %; Nucleated Red Blood Cells % 0 %; Platelet Count 70 10^3/cmm (157-399); Red Blood Count 2.62 10^6/uL (3.85-5.65); Red Cell Distribution Width 17.7 % (12.1-15.1); White Blood Count 3.13 10^3/uL (3.29-11.43)
[2024-01-20 12:57] LABS: Eosinophils % 0.3 %; Hematocrit 33.6 % (36-47); Lymphocytes # 1.3 10^3/uL (0.8-4.8); Lymphocytes % 36.2 %; Mean Corpuscular HGB Conc 32.1 g/dL (30-55); Mean Corpuscular Hemoglobin 36.1 pg (27-33); Mean Corpuscular Volume 112.4 fl (85-98); Mean Platelet Volume 10.2 fL (7.4-10.4); Monocytes # 0.6 10^3/uL (0.2-0.9); Monocytes % 16.7 %; Neutrophils # 1.67 10^3/uL (1.8-7.7); Neutrophils % 46.5 %; Nucleated Red Blood Cells % 0 %; Platelet Count 125 10^3/cmm (157-399); Red Blood Count 2.99 10^6/uL (3.85-5.65); Red Cell Distribution Width 17.3 % (12.1-15.1); White Blood Count 3.59 10^3/uL (3.29-11.43)
[2024-01-27 08:50] LABS: Basophils % 0.2 %; Eosinophils % 0.6 %; Hematocrit 32.6 % (36-47); Lymphocytes # 1.6 10^3/uL (0.8-4.8); Lymphocytes % 29.7 %; Mean Corpuscular HGB Conc 32.2 g/dL (30-55); Mean Corpuscular Hemoglobin 36.5 pg (27-33); Mean Corpuscular Volume 113.2 fl (85-98); Mean Platelet Volume 10.1 fL (7.4-10.4); Monocytes # 0.7 10^3/uL (0.2-0.9); Monocytes % 13.1 %; Neutrophils % 55.8 %; Nucleated Red Blood Cells % 0 %; Platelet Count 144 10^3/cmm (157-399); Red Blood Count 2.88 10^6/uL (3.85-5.65); Red Cell Distribution Width 16.6 % (12.1-15.1); White Blood Count 5.36 10^3/uL (3.29-11.43)
[2024-01-27 09:07] LABS: Alanine Aminotransferase 21 U/L (0-33); Albumin Level 4.3 g/dL (3.5-5.2); Alkaline Phosphatase 91 U/L (35-105); Aspartate Amino Transferase 24 U/L (0-32); Blood Urea Nitrogen 21 mg/dL (8-23); Calcium 9.1 mg/dL (8.5-10.5); Carbon Dioxide 23 mmol/L (22-29); Chloride 105 mmol/L (98-107); Creatinine Clr Calc Pharmacy 53.7739; Globulin 2.3 g/dL (1.3-4.6); Glucose 115 mg/dL (65-115); Osmolality Calculated 288 mOsm/kg (285-295); Sodium 137 mmol/L (136-145); Total Bilirubin 0.3 mg/dL (0.15-1.2); Total Protein 6.6 g/dL (6.6-8.7)
[2024-01-27 09:53] LABS: Anion Gap 13.5 (5-19); Lactate Dehydrogenase > 180 U/L (135-214); Potassium 4.5 mmol/L (3.5-5.1)
--- NOTE | 2024-01-27 11:00 | XR_ITS ---
WS: [email or web address] Exam: XR chest 2V* [id number] Date/Time of Exam: 01/27/2024 11:01 AM Reason For Exam: respiratory infection Comparison 10/24/2023. Lungs are clear and fully expanded. Normal cardiomediastinal silhouette. A LEFT subclavian port ends at the cavoatrial junction. No pleural effusion. Normal bony elements. XR/XR chest 2V* [id number] IMPRESSION: 1. No acute cardiopulmonary finding. No change.
== END 2024-01-27 23:59 | disposition home or self-care (01) ==
PROVIDERS: Internal Medicine Medical Oncology; PCP Internal Medicine; Visit Provider Internal Medicine Hematology & Oncology
DX: C92.00 Acute myeloblastic leukemia, not having achieved remission (principal); Z53.9 Procedure and treatment not carried out, unspecified reason; J98.8 Other specified respiratory disorders; D61.810 Antineoplastic chemotherapy induced pancytopenia
CPT/HCPCS: 36591; 71046; 80053; 83615; 85025; 99214

== ENCOUNTER 2024-02-24 13:00 | Oncology outpatient (recurring) (ONCR) | payer MEDICARE, MEDICAID, SELFPAY ==
[2024-02-03 08:53] LABS: Basophils % 0.4 %; Eosinophils # 0.1 10^3/uL (0.0-0.8); Eosinophils % 0.7 %; Hematocrit 33.9 % (36-47); Lymphocytes # 2.4 10^3/uL (0.8-4.8); Lymphocytes % 28.6 %; Mean Corpuscular HGB Conc 32.4 g/dL (30-55); Mean Corpuscular Hemoglobin 36.1 pg (27-33); Mean Corpuscular Volume 111.1 fl (85-98); Mean Platelet Volume 9.4 fL (7.4-10.4); Monocytes # 1.1 10^3/uL (0.2-0.9); Monocytes % 13.4 %; Neutrophils # 4.61 10^3/uL (1.8-7.7); Neutrophils % 54.8 %; Nucleated Red Blood Cells % 0 %; Platelet Count 147 10^3/cmm (157-399); Red Blood Count 3.05 10^6/uL (3.85-5.65); Red Cell Distribution Width 16.3 % (12.1-15.1); White Blood Count 8.42 10^3/uL (3.29-11.43)
[2024-02-03 09:06] LABS: Alanine Aminotransferase 16 U/L (0-33); Albumin Level 4.1 g/dL (3.5-5.2); Alkaline Phosphatase 94 U/L (35-105); Blood Urea Nitrogen 17 mg/dL (8-23); Calcium 8.8 mg/dL (8.5-10.5); Carbon Dioxide 25 mmol/L (22-29); Chloride 102 mmol/L (98-107); Globulin 2.1 g/dL (1.3-4.6); Glucose 100 mg/dL (65-115); Osmolality Calculated 284 mOsm/kg (285-295); Sodium 136 mmol/L (136-145); Total Bilirubin 0.3 mg/dL (0.15-1.2); Total Protein 6.2 g/dL (6.6-8.7)
[2024-02-03 09:09] LABS: Anion Gap 13.3 (5-19); Aspartate Amino Transferase 23 U/L (0-32); Potassium 4.3 mmol/L (3.5-5.1)
[2024-02-03 09:10] LABS: Lactate Dehydrogenase 213 U/L (135-214)
[2024-02-10 09:19] LABS: Basophils % 0.3 %; Eosinophils # 0.1 10^3/uL (0.0-0.8); Eosinophils % 0.7 %; Hematocrit 33.3 % (36-47); Lymphocytes # 1.5 10^3/uL (0.8-4.8); Lymphocytes % 19.4 %; Mean Corpuscular HGB Conc 31.2 g/dL (30-55); Mean Corpuscular Hemoglobin 35.5 pg (27-33); Mean Corpuscular Volume 113.7 fl (85-98); Mean Platelet Volume 10.3 fL (7.4-10.4); Monocytes # 0.8 10^3/uL (0.2-0.9); Monocytes % 10.4 %; Neutrophils # 5.11 10^3/uL (1.8-7.7); Neutrophils % 67.6 %; Nucleated Red Blood Cells % 0 %; Platelet Count 141 10^3/cmm (157-399); Red Blood Count 2.93 10^6/uL (3.85-5.65); Red Cell Distribution Width 15.9 % (12.1-15.1); White Blood Count 7.56 10^3/uL (3.29-11.43)
[2024-02-10 09:33] LABS: Alkaline Phosphatase 89 U/L (35-105); Aspartate Amino Transferase 23 U/L (0-32); Blood Urea Nitrogen 18 mg/dL (8-23); Calcium 9.2 mg/dL (8.5-10.5); Carbon Dioxide 22 mmol/L (22-29); Chloride 106 mmol/L (98-107); Creatinine Clr Calc Pharmacy 54.1893; Globulin 2.3 g/dL (1.3-4.6); Glucose 117 mg/dL (65-115); Osmolality Calculated 291 mOsm/kg (285-295); Sodium 139 mmol/L (136-145); Total Bilirubin 0.2 mg/dL (0.15-1.2); Total Protein 6.3 g/dL (6.6-8.7); Uric Acid 5.6 mg/dL (2.4-5.7)
[2024-02-10 09:34] LABS: Anion Gap 15.5 (5-19); Potassium 4.5 mmol/L (3.5-5.1)
[2024-02-10 09:35] LABS: Lactate Dehydrogenase 189 U/L (135-214)
[2024-02-10 09:44] LABS: Alanine Aminotransferase 14 U/L (0-33)
[2024-02-10] MEDS: sodium chloride 0.9% 250 ML 75 ML IV (11:25)
[2024-02-10] MEDS: ondansetron 2 mg/ML SDV 2 mL 8 MG IVP (11:26)
[2024-02-10] MEDS: SODIUM CHLORIDE 0.9% IV (11:51)
[2024-02-10] MEDS: DECITABINE IV (11:51)
[2024-02-10 13:09] VITALS: BP 142/72; PULSE 64; TEMP 36.8
[2024-02-11 12:35] LABS: Leukemia Profile (BBPL) See Report
[2024-02-11 13:27] VITALS: BP 114/58; PULSE 68; RESP 16; TEMP 36.9; O2SAT 97
[2024-02-11] MEDS: sodium chloride 0.9% 250 ML 75 ML IV (13:38)
[2024-02-11] MEDS: ondansetron 2 mg/ML SDV 2 mL 8 MG IVP (13:38)
[2024-02-11] MEDS: SODIUM CHLORIDE 0.9% IV (14:09)
[2024-02-11] MEDS: DECITABINE IV (14:09)
[2024-02-11 15:50] VITALS: BP 117/60; PULSE 61; RESP 16; TEMP 36.7; O2SAT 98
[2024-02-12 14:00] VITALS: BP 106/59; PULSE 68; RESP 16; TEMP 36.9; O2SAT 95
[2024-02-12] MEDS: ondansetron 2 mg/ML SDV 2 mL 8 MG IVP (14:19)
[2024-02-12] MEDS: sodium chloride 0.9% 250 ML 75 ML IV (14:19)
[2024-02-12] MEDS: DECITABINE IV (14:40)
[2024-02-12] MEDS: SODIUM CHLORIDE 0.9% IV (14:40)
[2024-02-12 15:35] VITALS: BP 104/57; PULSE 68; RESP 16; TEMP 37.2; O2SAT 98
[2024-02-13] MEDS: sodium chloride 0.9% 250 ML 75 ML IV (13:14)
[2024-02-13] MEDS: ondansetron 2 mg/ML SDV 2 mL 8 MG IVP (13:15)
[2024-02-13] MEDS: DECITABINE IV (13:35)
[2024-02-13] MEDS: SODIUM CHLORIDE 0.9% IV (13:35)
[2024-02-13 15:19] VITALS: BP 126/74; PULSE 78; RESP 16; O2SAT 95
[2024-02-14 09:59] VITALS: BP 129/72; PULSE 68; RESP 16; TEMP 36.9; O2SAT 98
[2024-02-14] MEDS: ondansetron 2 mg/ML SDV 2 mL 8 MG IVP (10:06)
[2024-02-14] MEDS: sodium chloride 0.9% 250 ML 75 ML IV (10:06)
[2024-02-14] MEDS: SODIUM CHLORIDE 0.9% IV (10:32)
[2024-02-14] MEDS: DECITABINE IV (10:32)
[2024-02-14 11:45] VITALS: BP 125/67; PULSE 59; RESP 16; TEMP 36.8; O2SAT 97
[2024-02-17 13:13] LABS: Basophils % 0.4 %; Eosinophils # 0.1 10^3/uL (0.0-0.8); Eosinophils % 1.5 %; Hematocrit 30.8 % (36-47); Lymphocytes # 1.2 10^3/uL (0.8-4.8); Lymphocytes % 22.7 %; Mean Corpuscular HGB Conc 32.8 g/dL (30-55); Mean Corpuscular Hemoglobin 36.7 pg (27-33); Mean Platelet Volume 9.8 fL (7.4-10.4); Monocytes # 0.3 10^3/uL (0.2-0.9); Monocytes % 4.6 %; Neutrophils # 3.78 10^3/uL (1.8-7.7); Neutrophils % 69.5 %; Nucleated Red Blood Cells % 0 %; Platelet Count 138 10^3/cmm (157-399); Red Blood Count 2.75 10^6/uL (3.85-5.65); Red Cell Distribution Width 15.7 % (12.1-15.1); White Blood Count 5.43 10^3/uL (3.29-11.43)
[2024-02-24 13:35] LABS: Basophils % 0.3 %; Eosinophils # 0.1 10^3/uL (0.0-0.8); Eosinophils % 2.1 %; Hematocrit 29.8 % (36-47); Lymphocytes # 1.3 10^3/uL (0.8-4.8); Lymphocytes % 38.1 %; Mean Corpuscular HGB Conc 32.2 g/dL (30-55); Mean Corpuscular Hemoglobin 35.7 pg (27-33); Mean Corpuscular Volume 110.8 fl (85-98); Mean Platelet Volume 10.8 fL (7.4-10.4); Monocytes # 0.1 10^3/uL (0.2-0.9); Monocytes % 3.9 %; Neutrophils # 1.82 10^3/uL (1.8-7.7); Nucleated Red Blood Cells % 0 %; Platelet Count 50 10^3/cmm (157-399); Red Blood Count 2.69 10^6/uL (3.85-5.65); Red Cell Distribution Width 16.2 % (12.1-15.1); White Blood Count 3.31 10^3/uL (3.29-11.43)
== END 2024-02-27 23:59 | disposition home or self-care (01) ==
PROVIDERS: PCP Internal Medicine; Visit Provider Internal Medicine Hematology & Oncology
DX: C92.00 Acute myeloblastic leukemia, not having achieved remission; Z53.9 Procedure and treatment not carried out, unspecified reason; M79.672 Pain in left foot
CPT/HCPCS: 36591; 80053; 83615; 84550; 85025; 88184; 88185; 96375; 96413; 96415; 99214; J0894; J2405; J7050

== ENCOUNTER 2024-03-20 11:19 | Observation (INO) | payer MEDICARE, MEDICAID, SELFPAY ==
[2024-03-20] VITALS (17 sets, daily range): BP systolic 145–176; BP diastolic 49–85; PULSE 57–73; RESP 15–27; TEMP 36.9–37.5; O2SAT 93–98; BMI 25.4
--- NOTE | 2024-03-20 11:57 | XR_ITS ---
WS: [email or web address] Exam: XR chest 1V portable [id number] Date/Time of Exam: 03/20/2024 12:10 PM Reason For Exam: chest pain Comparison 10/16/2022. Ovoid soft tissue density in the mid RIGHT lung representing either focal infiltrate, nodule or locul ated fissural fluid. Remaining lung narvaez are clear. Heart size is normal for technique. The mediast inum and bony thorax are unremarkable. A LEFT subclavian port ends at the cavoatrial junction in good position. XR/XR chest 1V portable [id number] IMPRESSION: 1. Ill-defined ovoid soft tissue density in the mid RIGHT lung which may repres ent a mass, loculated fluid or infiltrate. This measures approximately 2.6 x 2 cm. 2. No other significant finding.
--- NOTE | 2024-03-20 12:12 | ED_ITS ---
HPI - SOB/Dyspnea 2 General: Chief Complaint: Shortness of Breath/Dyspnea Stated Complaint: SOB, low oxygen level Time Seen by Provider: 03/20/24 12:08 History of Present Illness: HPI Narrative: 74-year-old female with a history of lym phoma who was recently admitted at [facility] and treated for fungal pneumonia. She says she still on very heavy antibiotics. Says she feels much more short of breath today in the overnight her granddaughter witnessed that she was breathing harder while she was sleeping and while she was sleeping her oxygen saturations were dropping to the upper 80s. No altered mental status. No focal motor deficits. No chest pain. No abdominal pain. No lower extremity swelling. No fevers. She says she has had some generalized weakness and shortness of breath. Related Data Home Medications Medication Instructions Recorded Confirmed acetaminophen 500 mg tablet 500 mg PO Q6H PRN Pain 12/13/20 03/20/24 (Tylenol Extra Strength) losartan 50 mg tablet 50 mg PO DAILY 08/08/21 03/20/24 biotin 10,000 mcg capsule 10,000 mcg PO DAILY 09/01/21 03/20/24 sennosides 8.6 mg capsule (senna) 8.6 mg PO DAILY PRN Constipation 06/11/22 03/20/24 L.acidophil-L.casei-B.bifid-B.longum-FOS 1 cap PO DAILY 10/17/22 03/20/24 2 billion cell-50 mg capsule (Probiotic Blend) escitalopram oxalate 20 mg tablet 20 mg PO QAM 10/17/22 03/20/24 multivitamin with minerals-folic 2 tab PO DAILY 10/17/22 03/20/24 acid 200 mcg chewable tablet (Adult Multivitamin Gummies) acyclovir 400 mg tablet 400 mg PO TID 03/20/24 03/20/24 ciprofloxacin HCl 500 mg tablet 500 mg PO DAILY 03/20/24 03/20/24 levothyroxine 25 mcg tablet 25 mcg PO DAILY 03/20/24 03/20/24 posaconazole 100 mg tablet,delayed 200 mg PO QAM 03/20/24 03/20/24 release potassium chloride 10 mEq 10 meq PO DAILY 03/20/24 03/20/24 capsule,extended release Previous Rx's Medication Instructions Recorded fluticasone furoate 100 1 inh inhalation DAILY PRN unknown 11/11/23 mcg-vilanterol 25 mcg/dose #60 ea inhalation powder (Breo Ellipta) Allergies Allergy/AdvReac Type Severity Reaction Status Date / Time adhesive Allergy Unknown Itching/Red Verified 02/10/24 08:59 ness amoxicillin Allergy Rash, Verified 02/10/24 08:59 tongue swelling Penicillins Allergy Rash/tongue Verified 02/10/24 08:59 swelling Sulfa (Sulfonamide Allergy Rash Verified 02/10/24 08:59 Antibiotics) vancomycin AdvReac Mild ADR-Itching Verified 02/10/24 08:59 Review of Systems 2 Narrative: Constitutional symptoms: Negative except as documented in HPI. Skin symptoms: Negative except as documented in HPI. Eye symptoms: Negative except as documented in HPI. ENMT symptoms: Negative except as documented in HPI. Respiratory symptoms: Negative except as documented in HPI. Cardiovascular symptoms: Negative except as documented in HPI. Gastrointestinal symptoms: Negative except as documented in HPI. Genitourinary symptoms: Negative except as documented in HPI. Musculoskeletal symptoms: Negative except as documented in HPI. Neurologic symptoms: Negative except as documented in HPI. Psychiatric symptoms: Negative except as documented in HPI. Endocrine symptoms: Negative except as documented in HPI. PFSH ED 2 PFSH: Medical History History of fungal pneumonia UTI (urinary tract infection) Cough Hyperlipidemia Anxiety and depression COVID-19 Fever AML (acute myeloblastic leukemia) Ulcerative colitis She has had ulcerative colitis since about the age of 32. She is currently not requiring any medication for it. Lichen sclerosus Diagnosed in January 2019 with a vulvar biopsy--- symptoms well controlled with consistent clobetasol use Surgical History Hx of cataract surgery Bilateral cataract excisions Port-A-Cath in place (09/04/21) right IJ S/P section Performed in the 1970s via vertical midline infraumbilical incision Family History Sister Hyperlipidemia Hypertension Vulvar cancer Brother Hyperlipidemia Hypertension Diabetes Father Stroke Denies family history of Cervical cancer Colon cancer Ovarian cancer DVT (deep venous thrombosis) Breast cancer Pulmonary embolism Uterine cancer Social History Smoking and tobacco/nicotine status: never used tobacco/nicotine Substance/Drug Use: unknown Physical Exam 2 Narrative: EXAM NARRATIVE: General: Alert, no acute distress. Skin: Warm, dry. Head: Normocephalic, atraumatic. Neck: Supple, trachea midline. Eye: Extraocular movements are intact. Ears, nose, mouth and throat: mucosa moist. Cardiovascular: Regular, Normal peripheral perfusion. Respiratory: Lungs are clear to auscultation, respirations are non-labored, breath sounds are equal, Symmetrical chest wall expansion. Gastrointestinal: Soft, Nontender, Non distended Musculoskeletal: Normal ROM, no deformity. Neurological: Alert and oriented, No focal neurological deficit observed. Psychiatric: Cooperative, appropriate mood & affect. Course 2 Vital Signs: Vital signs: Vital Signs Temperature 98.5 F 03/20/24 11:23 Pulse Rate 67 03/20/24 14:27 Respiratory Rate 16 03/20/24 14:27 Blood Pressure 170/67 03/20/24 14:27 Pulse Oximetry 95 03/20/24 14:27 Oxygen Delivery Me thod Room Air 03/20/24 14:27 MDM - SOB/Dyspnea Medical Decision Making Differential diagnosis for patient with shortness of breath includes but is not limited to and based on the above HPI, review of systems and physical exam: Pneumonia. Bronchitis. Asthma or COPD with acute exacerbation. Acute coronary syndrome / [place]. Pulmonary embolism. Anxiety. Congestive heart failure. Viral infections including influenza and Covid-19. Atrial fibrillation. Anxiety. Pleural effusion. Pneumothorax. Orders placed to evaluate differential diagnosis based on the above differential, HPI and physical exam Lab Review: Laboratory results were reviewed and interpreted by myself the emergency room physician. Patient has chronic leukopenia with an ANC of 1000. This is at or near her baseline. Her platelets are 81. No renal failure. proBNP is elevated at 3500. 3 years ago it was 800. She likely did receive fluids while admitted for pneumonia. She does not have any swelling in her legs but she says she feels like she has gained some weight. No evidence of heart failure on her x-ray but she does have orthopnea so we are going to give a dose of Lasix. I reviewed the patient's medical record. EKG: Time 1349. Rate 57. Sinus bradycardia, No ST-T changes, no ectopy, normal ME & QRS intervals, This was reviewed and interpreted by myself the ER physician at 1352 Reexamination: Patient remained stable. No increased work of breathing. No altered mental status. No focal motor deficits. Patient does not have any exertional hypoxemia. Consultation: I spoke with Dr. Rosales who is the patient's primary provider. Given that is Saturday we cannot do a sleep study. I also think this may just be related to her pneumonia and may be a temporary event or could be related to fluid overload which is also quite likely. She recommends observation overnight with nighttime oxygen monitoring. Consultation: I spoke with Dr. Jaimes who is on-call for the hospitalist service who kindly agrees to observation overnight. She agrees with a dose of Lasix at this time. Assessment and plan: Nighttime hypoxemia Orthopnea Fluid overload Pneumonia Immunocompromise state -I discussed the patient with the hospitalist on-call who is admitting the patient. - Discussed findings and plan with patient. Answered any questions. - All laboratory values were reviewed and interpreted personally by myself, the ER physician - All imaging was reviewed and interpreted personally by myself, the ER physician. - Evaluation and treatment of this problem were appropriate in the emergency setting Lab Data 03/20/24 12:40 03/20/24 12:40 Labs/Radiology: Radiology Impressions Chest X-Ray 03/20/24 11:57 IMPRESSION: 1. Ill-defined ovoid soft tissue density in the mid RIGHT lung which may represent a mass, loculated fluid or infiltrate. This measures approximately 2.6 x 2 cm. 2. No other significant finding. Laboratory Results WBC 2.12 10^3/uL (3.29-11.43) L 03/20/24 12:40 RBC 2.64 10^6/uL (3.85-5.65) L 03/20/24 12:40 Hgb 9.20 g/dL (11.27-16.99) L 03/20/24 12:40 Hct 28.8 % (36-47) L 03/20/24 12:40 MCV 109.1 fl (85-98) H 03/20/24 12:40 MCH 34.8 pg (27-33) H 03/20/24 12:40 MCHC 31.9 g/dL (30-55) 03/20/24 12:40 RDW 18.4 % (12.1-15.1) H 03/20/24 12:40 Plt Count 81 10^3/cmm (157-399) L 03/20/24 12:40 MPV 9.7 fL (7.4-10.4) 03/20/24 12:40 Neut % (Auto) 48.6 % 03/20/24 12:40 Lymph % (Auto) 33.0 % 03/20/24 12:40 [place] % (Auto) 16.0 % 03/20/24 12:40 Eos % (Auto) 0.0 % 03/20/24 12:40 Baso % (Auto) 0.5 % 03/20/24 12:40 Neut # (Auto) 1.03 10^3/uL (1.8-7.7) L 03/20/24 12:40 Lymph # (Auto) 0.7 10^3/uL (0.8-4.8) L 03/20/24 12:40 [place] # (Auto) 0.3 10^3/uL (0.2-0.9) 03/20/24 12:40 Eos # (Auto) 0.0 10^3/uL (0.0-0.8) 03/20/24 12:40 Baso # (Auto) 0.0 10^3/uL (0.0-0.1) 03/20/24 12:40 Nucleated RBC % (auto) 0 % 03/20/24 12:40 Nucleated RBCs # 0.0 /100WBC 03/20/24 12:40 Sodium 139 mmol/L (136-145) 03/20/24 12:40 Potassium 3.6 mmol/L (3.5-5.1) 03/20/24 12:40 Chloride 104 mmol/L (98-107) 03/20/24 12:40 Carbon Dioxide 23 mmol/L (22-29) 03/20/24 12:40 Anion Gap 15.6 (5-19) 03/20/24 12:40 BUN 7 mg/dL (8-23) L 03/20/24 12:40 Creatinine 0.6 mg/dL (0.5-0.9) 03/20/24 12:40 GFR Calculation Not Reportable 03/20/24 12:40 Glucose 96 mg/dL (65-115) 03/20/24 12:40 Calculated Osmolality 286 mOsm/kg (285-295) 03/20/24 12:40 Lactic Acid 0.9 mmol/L (0.5-2.2) 03/20/24 12:40 Calcium 8.5 mg/dL (8.5-10.5) 03/20/24 12:40 Total Bilirubin 0.8 mg/dL (0.15-1.2) 03/20/24 12:40 AST 17 U/L (0-32) 03/20/24 12:40 ALT 16 U/L (0-33) 03/20/24 12:40 Alkaline Phosphatase 77 U/L (35-105) 03/20/24 12:40 Troponin T Baseline 16 ng/L (0-10) H 03/20/24 12:40 NT-Pro-B Natriuret Pep 3500 pg/mL (0-125) H 03/20/24 12:40 Total Protein 6.4 g/dL (6.6-8.7) L 03/20/24 12:40 Albumin 4.1 g/dL (3.5-5.2) 03/20/24 12:40 Globulin 2.3 g/dL (1.3-4.6) 03/20/24 12:40 Procalcitonin 0.07 ng/mL (0-0.5) 03/20/24 12:40 All radiology interpretation(s) finalized by discharge Discharge Plan Discharge Patient Disposition: Placed in Observation Clinical Impression: Hypoxemia, Fluid overload, Fungal pneumonia, Acquired immunocompromised state, Orthopnea Coding Level of Care Code ED Recycle Driver for Cb Mccall
[2024-03-20 12:59] LABS: Basophils % 0.5 %; Hematocrit 28.8 % (36-47); Lymphocytes # 0.7 10^3/uL (0.8-4.8); Mean Corpuscular HGB Conc 31.9 g/dL (30-55); Mean Corpuscular Hemoglobin 34.8 pg (27-33); Mean Corpuscular Volume 109.1 fl (85-98); Mean Platelet Volume 9.7 fL (7.4-10.4); Monocytes # 0.3 10^3/uL (0.2-0.9); Neutrophils # 1.03 10^3/uL (1.8-7.7); Neutrophils % 48.6 %; Nucleated Red Blood Cells % 0 %; Platelet Count 81 10^3/cmm (157-399); Red Blood Count 2.64 10^6/uL (3.85-5.65); Red Cell Distribution Width 18.4 % (12.1-15.1); White Blood Count 2.12 10^3/uL (3.29-11.43)
[2024-03-20 13:21] LABS: Troponin(5th) Baseline 16 ng/L (0-10)
[2024-03-20 13:22] LABS: Lactic Sepsis W/Reflex 0.9 mmol/L (0.5-2.2)
[2024-03-20 13:30] LABS: NT Pro B Type Natriuretic Pept 3500 pg/mL (0-125); Procalcitonin 0.07 ng/mL (0-0.5)
--- NOTE | 2024-03-20 13:38 | PC.NURSE ---
RT notified of home O2 eval for ER 4.
[2024-03-20 13:42] LABS: Alanine Aminotransferase 16 U/L (0-33); Albumin Level 4.1 g/dL (3.5-5.2); Alkaline Phosphatase 77 U/L (35-105); Anion Gap 15.6 (5-19); Aspartate Amino Transferase 17 U/L (0-32); Blood Urea Nitrogen 7 mg/dL (8-23); Calcium 8.5 mg/dL (8.5-10.5); Carbon Dioxide 23 mmol/L (22-29); Chloride 104 mmol/L (98-107); Creatinine Clr Calc Pharmacy 55.4715; Globulin 2.3 g/dL (1.3-4.6); Glucose 96 mg/dL (65-115); Osmolality Calculated 286 mOsm/kg (285-295); Potassium 3.6 mmol/L (3.5-5.1); Sodium 139 mmol/L (136-145); Total Bilirubin 0.8 mg/dL (0.15-1.2); Total Protein 6.4 g/dL (6.6-8.7)
--- NOTE | 2024-03-20 14:17 | ECG_ITS ---
[facility] Test Date: 2024-03-20 Pat Name: Eulalia Kaplan Department: Room: Gender: Female Human Resources Supervisor: : 1950 Requested By: Génesis Tesfaye Order Number: [id number] Jaylin MD: Cipriano Pak M.D. Measurements Intervals [place] Rate: 57 P: 55 WI: 138 QRS: 30 QRSD: 102 T: 30 QT: 428 QTc: 417 Interpretive Statements SINUS BRADYCARDIA POSSIBLE LEFT ATRIAL ENLARGEMENT [-0.1mV P-WAVE IN V1/V2] INCOMPLETE RIGHT BUNDLE BRANCH BLOCK [90+ ms QRS DURATION, TERMINAL R IN V1/V2, 40+ ms S IN I/aVL/V4/V5/V6] NONSPECIFIC ST & T-WAVE ABNORMALITY Compared to ECG 11/17/2020 23:54:08 Incomplete right bundle-branch block now present Sinus rhythm no longer present Sinus arrhythmia no longer present Possible ischemia no longer present T-wave abnormality still present Electronically Signed On 03-21-2024 10:34:53 AUTOMOTIVE PARTS ADVISOR by Cipriano Pak M.D. [id number]
--- NOTE | 2024-03-20 14:27 | PC.NURSE ---
RT completed home O2 eval.
--- NOTE | 2024-03-20 14:38 | PC.NURSE ---
pt at this time is contacting her [place] specialist doctor to ask is she can have Lasix before receiving it.
[2024-03-20] MEDS: FUROsemide 10 mg/mL SDV 10mL 40 MG IVP (15:12)
--- NOTE | 2024-03-20 15:14 | PM.HP ---
Providers/Chief Complaint Primary Care Provider: Mercy Rosales MD Chief Complaint: SOB, low oxygen level History of Present Illness Eulalia Kaplan is a 74 year old female with history of ulcerative colitis, anxiety and depression, AML diagnosed 06/19 by bone marrow biopsy, was started on decitabine and venetoclax regimen on 06/19 but developed severe neutropenia and fungal pneumonia, finished 11 cycles but was complicated by low counts and recurrent infections was brought in by family for complaint of shortness of breath, dyspnea on exertion and hypoxia during sleep at night. As per the outpatient oncology note from 02/09, patient had shortness of breath and dyspnea on exertion at that time also. She was recently admitted at [place] and treated for fungal pneumonia. She continues to take ciprofloxacin and posaconazole. As per the family her granddaughter witnessed that she was breathing heavily during sleep and her oxygen saturation was dropping to upper 80s. Denies any history of fever, chest pain, cough, nausea/vomiting/diarrhea or urinary complaints but endorses feeling generalized weakness recently. Review of Systems General: Reports: 10 or more systems reviewed and unremarkable except in HPI and below Medications/Allergies Home Medications Medication Instructions Recorded Confirmed Last Taken Type acetaminophen 500 mg tablet 500 mg PO Q6H PRN Pain 12/13/20 03/20/24 08/11/21 History (Tylenol Extra Strength) losartan 50 mg tablet 50 mg PO DAILY 08/08/21 03/20/24 09/03/21 History biotin 10,000 mcg capsule 10,000 mcg PO DAILY 09/01/21 03/20/24 09/03/21 History sennosides 8.6 mg capsule (senna) 8.6 mg PO DAILY PRN Constipation 06/11/22 03/20/24 Unknown History L.acidophil-L.casei-B.bifid-B.longum-FOS 1 cap PO DAILY 10/17/22 03/20/24 Unknown History 2 billion cell-50 mg capsule (Probiotic Blend) escitalopram oxalate 20 mg tablet 20 mg PO QAM 10/17/22 03/20/24 Unknown History multivitamin with minerals-folic 2 tab PO DAILY 10/17/22 03/20/24 Unknown History acid 200 mcg chewable tablet (Adult Multivitamin Gummies) fluticasone furoate 100 1 inh inhalation DAILY PRN unknown 11/11/23 03/20/24 Unknown Rx mcg-vilanterol 25 mcg/dose #60 ea inhalation powder (Breo Ellipta) acyclovir 400 mg tablet 400 mg PO TID 03/20/24 03/20/24 Unknown History ciprofloxacin HCl 500 mg tablet 500 mg PO DAILY 03/20/24 03/20/24 Unknown History levothyroxine 25 mcg tablet 25 mcg PO DAILY 03/20/24 03/20/24 Unknown History posaconazole 100 mg tablet,delayed 200 mg PO QAM 03/20/24 03/20/24 Unknown History release potassium chloride 10 mEq 10 meq PO DAILY 03/20/24 03/20/24 Unknown History capsule,extended release Allergies Allergy/AdvReac Type Severity Reaction Status Date / Time adhesive Allergy Unknown Itching/Red Verified 02/10/24 08:59 ness amoxicillin Allergy Rash, Verified 02/10/24 08:59 tongue swelling Penicillins Allergy Rash/tongue Verified 02/10/24 08:59 swelling Sulfa (Sulfonamide Allergy Rash Verified 02/10/24 08:59 Antibiotics) vancomycin AdvReac Mild ADR-Itching Verified 02/10/24 08:59 PFSH Acute PFSH: Medical History History of fungal pneumonia UTI (urinary tract infection) Cough Hyperlipidemia Anxiety and depression COVID-19 Fever AML (acute myeloblastic leukemia) Ulcerative colitis She has had ulcerative colitis since about the age of 32. She is currently not requiring any medication for it. Lichen sclerosus Diagnosed in January 2019 with a vulvar biopsy--- symptoms well controlled with consistent clobetasol use Surgical History Hx of cataract surgery Bilateral cataract excisions Port-A-Cath in place (09/04/21) right IJ S/P section Performed in the 1970s via vertical midline infraumbilical incision Family History Sister Hyperlipidemia Hypertension Vulvar cancer Brother Hyperlipidemia Hypertension Diabetes Father Stroke Denies family history of Cervical cancer Colon cancer Ovarian cancer DVT (deep venous thrombosis) Breast cancer Pulmonary embolism Uterine cancer Social History Smoking and tobacco/nicotine status: never used tobacco/nicotine Substance/Drug Use: unknown Vitals/I&O/Wt Last Vital Signs Temp 98.5 F 03/20/24 11:23 Pulse 67 03/20/24 14:27 Resp 16 03/20/24 14:27 BP 170/67 03/20/24 14:27 Pulse Ox 95 03/20/24 14:27 O2 Del Method Room Air 03/20/24 14:27 Weight last 48 hrs Weight 63.049 kg Physical Exam Narrative: She is alert awake oriented x 3 Chest clear to auscultation bilaterally Cardiovascular normal heart sounds no murmurs Abdomen soft nontender nondistended normal bowel sounds Extremities no edema noted bilateral lower extremity Data 03/20/24 12:40 03/20/24 12:40 A&P Assessment and plan (1) Orthopnea: (2) SOB (shortness of breath): (3) Hypoxia, sleep related: Plan Eulalia Kaplan is a 74 year old female with history of ulcerative colitis, anxiety and depression, AML diagnosed 06/19 by bone marrow biopsy, was started on decitabine and venetoclax regimen on 06/19 but developed severe neutropenia and fungal pneumonia, finished 11 cycles but was complicated by low counts and recurrent infections was brought in by family for complaint of shortness of breath, dyspnea on exertion and hypoxia during sleep at night, found to have BNP 3500. 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 Attestations Medical Necessity Statement*: She needs continued hospitalization not crossing 2 midnights for management of shortness of breath and hypoxia likely secondary to fluid overload with IV Lasix. Time Spent in Patient Care: 40 minutes Coding Level of Care Code Acute Code for Chg Fwd Diagnoses Orthopnea R06.01 SOB (shortness of breath) R06.02 Hypoxia, sleep related G47.34 Time Spent (min) 40
[2024-03-20 15:24] LABS: Troponin 5 2HR 13.32 ng/L (0-10)
[2024-03-20 15:26] LABS: Troponin 5 2HR Delta -2.68 ABS# (0-10)
--- NOTE | 2024-03-20 17:24 | PC.NURSE ---
nurse in [facility] to call back. attempted report at [phone].
--- NOTE | 2024-03-20 17:42 | PC.NURSE ---
report called to Ann WRIGHT at 0540.
--- NOTE | 2024-03-20 18:04 | PC.NURSE ---
admitted into room 101 from er via w/c at 1805.sr on monitor.oriented to room environment.instructed to notify staff for any sob,pain,or for any concerns at all.pt song b understanding of instructions
[2024-03-20] MEDS: famotidine 20 mg/2 mL INJ IVP (18:13)
[2024-03-20] MEDS: enoxaparin 40 mg/0.4 mL Syringe SUBCUT (18:13)
--- NOTE | 2024-03-20 18:15 | ECG_ITS ---
[facility]: [facility]20 Pat Name: Eulalia Kaplan Department: Room: 112 Gender: Female Four Slide Operator: : 1950 Requested By: Génesis Tesfaye Order Number: [id number] Jaylin MD: Cipriano Pak M.D. Measurements Intervals [place] Rate: 65 P: 62 FL: 126 QRS: 80 QRSD: 102 T: 51 QT: 430 QTc: 450 Interpretive Statements SINUS RHYTHM WITH OCCASIONAL SUPRAVENTRICULAR PREMATURE COMPLEXES INCOMPLETE RIGHT BUNDLE BRANCH BLOCK [90+ ms QRS DURATION, TERMINAL R IN V1/V2, 40+ ms S IN I/aVL/V4/V5/V6] NONSPECIFIC ST & T-WAVE ABNORMALITY Compared to ECG 03/20/2024 13:49:25 Sinus bradycardia no longer present T-wave abnormality still present Electronically Signed On 03-21-2024 10:33:41 BINDER CHAINSTITCH by Cipriano Pak M.D. [id number]
[2024-03-20 18:46] LABS: Troponin 5 6HR 14.87 ng/L (0-10)
[2024-03-20 18:47] LABS: Troponin 5 6HR Delta -1.13 ng/L (0-12)
[2024-03-20] MEDS: acyclovir 400 mg Tablet PO (20:25)
[2024-03-20] MEDS: ciprofloxacin 500 mg Tablet PO (20:50)
[2024-03-20] MEDS: budesonide 0.5 mg/2 mL Neb INHALATION (21:14)
[2024-03-20] MEDS: albuterol 2.5 mg/3 mL Neb INHALATION (21:14)
--- NOTE | 2024-03-20 22:17 | PC.RESP ---
overnight pulse ox placed patient at 2135, patient at baseline room air.
[2024-03-21] VITALS (7 sets, daily range): BP systolic 151–184; BP diastolic 61–69; PULSE 56–77; RESP 12–25; TEMP 36.6–36.7; O2SAT 93–98
[2024-03-21] MEDS: escitalopram 10 mg Tablet 20 MG PO (05:30)
[2024-03-21] MEDS: famotidine 20 mg/2 mL INJ IVP (05:36)
[2024-03-21] MEDS: potassium chloride ER 10 mEq Tablet PO (08:25)
[2024-03-21] MEDS: acyclovir 400 mg Tablet PO (08:25)
[2024-03-21] MEDS: ciprofloxacin 500 mg Tablet PO (08:25)
[2024-03-21] MEDS: levothyroxine 25 mcg Tablet PO (08:25)
[2024-03-21] MEDS: multivitamin therapeutic Tablet 1 TAB PO (08:25)
[2024-03-21] MEDS: losartan 50 mg Tablet PO (08:25)
[2024-03-21] MEDS: POSACONAZOLE 300 MG 300 EACH PO (08:27)
[2024-03-21] MEDS: budesonide 0.5 mg/2 mL Neb INHALATION (08:50)
[2024-03-21] MEDS: albuterol 2.5 mg/3 mL Neb INHALATION (08:50)
--- NOTE | 2024-03-21 11:46 | PM.DCS ---
Discharge Providers Date of Admission: 03/20/24 16:53 Date of Discharge: March 21, 2024 Attending Provider at Admission: Lisa Jaimes MD Attending Provider at Discharge: Lisa Jaimes MD Primary Care Provider: Mercy Rosales MD Diagnoses at Discharge Discharge Diagnosis (1) Orthopnea: Status: Acute (2) SOB (shortness of breath): Status: Acute (3) Hypoxia, sleep related: Status: Acute Reason for Visit Reason for Visit: SOB, low oxygen level Brief History: Eulalia Kaplan is a 74 year old female with history of ulcerative colitis, anxiety and depression, AML diagnosed 06/19 by bone marrow biopsy, was started on decitabine and venetoclax regimen on 06/19 but developed severe neutropenia and fungal pneumonia, finished 11 cycles but was complicated by low counts and recurrent infections was brought in by family for complaint of shortness of breath, dyspnea on exertion and hypoxia during sleep at night. As per the outpatient oncology note from 02/09, patient had shortness of breath and dyspnea on exertion at that time also. She was recently admitted at [facility] and treated for fungal pneumonia. She continues to take ciprofloxacin and posaconazole. As per the family her granddaughter witnessed that she was breathing heavily during sleep and her oxygen saturation was dropping to upper 80s. Denies any history of fever, chest pain, cough, nausea/vomiting/diarrhea or urinary complaints but endorses feeling generalized weakness recently. Hospital Course Hospital Course Eulalia Kaplan is a 74 year old female with history of ulcerative colitis, anxiety and depression, AML diagnosed 06/19 by bone marrow biopsy, was started on decitabine and venetoclax regimen on 06/19 but developed severe neutropenia and fungal pneumonia, finished 11 cycles but was complicated by low counts and recurrent infections was brought in by family for complaint of shortness of breath, dyspnea on exertion and hypoxia during sleep at night, found to have BNP 3500. Hypoxia-likely secondary to fluid overload versus pneumonia versus sleep apnea Admit for observation Need further evaluation with sleep study, home O2 eval if Received IV Lasix 40 mg x 1 dose in ER Will continue to monitor Supplemental oxygen to keep saturation more than 90% Fungal pneumonia-continue [facility] ciprofloxacin and posaconazole Hypothyroidism-continue [facility] levothyroxine Neutropenic precautions-continue [facility] acyclovir Depression-continue [facility] escitalopram Hypertension-continue [facility] losartan Overnight pulse ox started at 2135. Ended at 0 628. Patient remained on room air for the entire history, sats did drop below 88% but recovered in few seconds. Patient do not need Supplemental oxygen at this time.Denies any complaints at this time. Will discharge her home to be followed up with PCP in 1 week Physical Exam Narrative: She is alert awake oriented x 3 Chest clear to auscultation bilaterally Cardiovascular normal heart sounds no murmurs Abdomen soft nontender nondistended normal bowel sounds Extremities no edema noted bilateral lower extremity Discharge Data Studies Completed and Pending Completed Studies During Hospitalization Category Date Time Status XR chest 1V portable [id number] Urgent Exams 03/20/24 11:57 Completed Radiology Impressions Chest X-Ray 03/20/24 11:57 IMPRESSION: 1. Ill-defined ovoid soft tissue density in the mid RIGHT lung which may represent a mass, loculated fluid or infiltrate. This measures approximately 2.6 x 2 cm. 2. No other significant finding. Laboratory Results WBC 2.12 10^3/uL (3.29-11.43) L 03/20/24 12:40 RBC 2.64 10^6/uL (3.85-5.65) L 03/20/24 12:40 Hgb 9.20 g/dL (11.27-16.99) L 03/20/24 12:40 Hct 28.8 % (36-47) L 03/20/24 12:40 MCV 109.1 fl (85-98) H 03/20/24 12:40 MCH 34.8 pg (27-33) H 03/20/24 12:40 MCHC 31.9 g/dL (30-55) 03/20/24 12:40 RDW 18.4 % (12.1-15.1) H 03/20/24 12:40 Plt Count 81 10^3/cmm (157-399) L 03/20/24 12:40 MPV 9.7 fL (7.4-10.4) 03/20/24 12:40 Neut % (Auto) 48.6 % 03/20/24 12:40 Lymph % (Auto) 33.0 % 03/20/24 12:40 [place] % (Auto) 16.0 % 03/20/24 12:40 Eos % (Auto) 0.0 % 03/20/24 12:40 Baso % (Auto) 0.5 % 03/20/24 12:40 Neut # (Auto) 1.03 10^3/uL (1.8-7.7) L 03/20/24 12:40 Lymph # (Auto) 0.7 10^3/uL (0.8-4.8) L 03/20/24 12:40 [place] # (Auto) 0.3 10^3/uL (0.2-0.9) 03/20/24 12:40 Eos # (Auto) 0.0 10^3/uL (0.0-0.8) 03/20/24 12:40 Baso # (Auto) 0.0 10^3/uL (0.0-0.1) 03/20/24 12:40 Nucleated RBC % (auto) 0 % 03/20/24 12:40 Nucleated RBCs # 0.0 /100WBC 03/20/24 12:40 Sodium 139 mmol/L (136-145) 03/20/24 12:40 Potassium 3.6 mmol/L (3.5-5.1) 03/20/24 12:40 Chloride 104 mmol/L (98-107) 03/20/24 12:40 Carbon Dioxide 23 mmol/L (22-29) 03/20/24 12:40 Anion Gap 15.6 (5-19) 03/20/24 12:40 BUN 7 mg/dL (8-23) L 03/20/24 12:40 Creatinine 0.6 mg/dL (0.5-0.9) 03/20/24 12:40 GFR Calculation Not Reportable 03/20/24 12:40 Glucose 96 mg/dL (65-115) 03/20/24 12:40 Calculated Osmolality 286 mOsm/kg (285-295) 03/20/24 12:40 Lactic Acid 0.9 mmol/L (0.5-2.2) 03/20/24 12:40 Calcium 8.5 mg/dL (8.5-10.5) 03/20/24 12:40 Total Bilirubin 0.8 mg/dL (0.15-1.2) 03/20/24 12:40 AST 17 U/L (0-32) 03/20/24 12:40 ALT 16 U/L (0-33) 03/20/24 12:40 Alkaline Phosphatase 77 U/L (35-105) 03/20/24 12:40 Troponin T Baseline 16 ng/L (0-10) H 03/20/24 12:40 Troponin T 120 Minute 13.32 ng/L (0-10) H 03/20/24 15:00 Delta Troponin T -2.68 ABS# (0-10) L 03/20/24 15:00 Troponin T Hi Sens 6Hr 14.87 ng/L (0-10) H 03/20/24 18:23 Troponin T Hi Sens 6Hr Delta -1.13 ng/L (0-12) L 03/20/24 18:23 NT-Pro-B Natriuret Pep 3500 pg/mL (0-125) H 03/20/24 12:40 Total Protein 6.4 g/dL (6.6-8.7) L 03/20/24 12:40 Albumin 4.1 g/dL (3.5-5.2) 03/20/24 12:40 Globulin 2.3 g/dL (1.3-4.6) 03/20/24 12:40 Procalcitonin 0.07 ng/mL (0-0.5) 03/20/24 12:40 Vitals Last Vital Signs Temp 97.9 F 03/21/24 11:16 Pulse 63 03/21/24 11:16 Resp 25 H 03/21/24 11:16 BP 151/62 03/21/24 11:16 Pulse Ox 93 03/21/24 11:16 O2 Del Method Room Air 03/21/24 11:16 Discharge Plan Discharge Patient Disposition: Home Condition: Stable Prescriptions: Continued acetaminophen [Tylenol Extra Strength] 500 mg tablet 500 mg PO Q6H PRN (Reason: Pain) losartan 50 mg tablet 50 mg PO DAILY senna 8.6 mg capsule 8.6 mg PO BEDTIME fluticasone furoate-vilanterol [Breo Ellipta] 100-25 mcg/dose blister with device 1 inh inhalation DAILY PRN (Reason: unknown) Qty: 60 0RF biotin 10,000 mcg Capsule 10,000 mcg PO DAILY escitalopram oxalate 20 mg tablet 20 mg PO QAM multivit with min-folic acid [Adult Multivitamin Gummies] 200 mcg Tablet,Chewable 2 tab PO DAILY Probiotic Blend 2 billion cell-50 mg Capsule 1 cap PO DAILY Rx Instructions: give with meal/snack ciprofloxacin HCl 500 mg tablet 500 mg PO BID potassium chloride 10 mEq capsule, extended release 10 meq PO DAILY acyclovir 400 mg tablet 400 mg PO TID Rx Instructions: TAKE 1 TABLET BY MOUTH THREE TIMES DAILY AT 9AM, 2PM AND 8PM levothyroxine 25 mcg tablet 25 mcg PO DAILY posaconazole 100 mg tablet,delayed release (DR/EC) 300 mg PO QAM Rx Instructions: TAKE 2 TABLETS BY MOUTH EVERY MORNING Discharge Orders: Discharge Order (Routine); Ordered 03/21/24 Ordered By: Lisa Jaimes Referrals: Mercy Rosales MD [Primary Care Provider] - (Please call and make a follow up appointment with Mercy Rosales MD following your discharge from hospital.) Discharge Diet: Cardiac Discharge Activity: Increase activity as tolerated Patient Instructions: Opioid Safety Discharge Attestations Time Spent in Discharge Care*: less than 30 min Status at Discharge: Cognitive status at discharge: cognitively intact, Behavioral status at discharge: cooperative, Quality Metrics Clinical Quality Measures [ No reported AMI, CVA or VTE this stay] Coding Level of Care Code Acute Code for Chg Fwd Diagnoses Orthopnea R06.01 SOB (shortness of breath) R06.02 Hypoxia, sleep related G47.34 Time Spent (min) 15
== END 2024-03-21 14:01 | disposition home or self-care (01) ==
LOC: ER 14:50 → CSU 17:29
PROVIDERS: Physician Assistant; Admitting Provider Internal Medicine; Emergency Provider Emergency Medicine; PCP Internal Medicine; Visit Provider Internal Medicine
DX: R06.01 Orthopnea (principal); R06.02 Shortness of breath; G47.34 Idiopathic sleep related nonobstructive alveolar hypoventilation; J18.9 Pneumonia, unspecified organism; E03.9 Hypothyroidism, unspecified; F41.9 Anxiety disorder, unspecified; F32.A Depression, unspecified; I10 Essential (primary) hypertension; C92.00 Acute myeloblastic leukemia, not having achieved remission; E78.5 Hyperlipidemia, unspecified
CPT/HCPCS: 36415; 71045; 80053; 83605; 83880; 84145; 84484; 85025; 93005; 94640; 94664; 94762; 96372; 96374; 96376; 99285; G0378; J1650; J1940; J3490; J7613; J7626; J8499

== ENCOUNTER 2024-03-24 13:30 | Oncology outpatient (recurring) (ONCR) | payer MEDICARE, MEDICAID, SELFPAY ==
[2024-03-02 13:15] VITALS: BP 124/75; PULSE 70
[2024-03-02 13:16] LABS: Eosinophils % 1.3 %; Hematocrit 30.7 % (36-47); Lymphocytes # 1.3 10^3/uL (0.8-4.8); Lymphocytes % 56.7 %; Mean Corpuscular HGB Conc 31.9 g/dL (30-55); Mean Corpuscular Hemoglobin 35.8 pg (27-33); Mean Platelet Volume 11.9 fL (7.4-10.4); Monocytes % 0.9 %; Neutrophils % 40.7 %; Nucleated Red Blood Cells % 0 %; Platelet Count 43 10^3/cmm (157-399); Red Blood Count 2.74 10^6/uL (3.85-5.65); Red Cell Distribution Width 17.1 % (12.1-15.1); White Blood Count 2.31 10^3/uL (3.29-11.43)
[2024-03-02 13:38] LABS: Neutrophils # 0.94 10^3/uL (1.8-7.7); Slide Review Slide Review Perform
[2024-03-16 13:22] LABS: Eosinophils % 1.1 %; Hematocrit 26.6 % (36-47); Lymphocytes # 0.9 10^3/uL (0.8-4.8); Lymphocytes % 49.7 %; Mean Corpuscular Hemoglobin 34.6 pg (27-33); Mean Corpuscular Volume 108.1 fl (85-98); Mean Platelet Volume 10.6 fL (7.4-10.4); Monocytes # 0.2 10^3/uL (0.2-0.9); Monocytes % 13.4 %; Neutrophils % 35.2 %; Nucleated Red Blood Cells % 0 %; Platelet Count 88 10^3/cmm (157-399); Red Blood Count 2.46 10^6/uL (3.85-5.65); Red Cell Distribution Width 18.8 % (12.1-15.1); White Blood Count 1.79 10^3/uL (3.29-11.43)
[2024-03-16 13:46] LABS: Neutrophils # 0.63 10^3/uL (1.8-7.7)
[2024-03-16 13:48] LABS: Slide Review Slide Review Perform
[2024-03-24 13:43] LABS: Eosinophils % 0.4 %; Hematocrit 25.8 % (36-47); Lymphocytes # 0.8 10^3/uL (0.8-4.8); Lymphocytes % 34.1 %; Mean Corpuscular HGB Conc 32.6 g/dL (30-55); Mean Corpuscular Hemoglobin 34.3 pg (27-33); Mean Corpuscular Volume 105.3 fl (85-98); Mean Platelet Volume 10.4 fL (7.4-10.4); Monocytes # 0.5 10^3/uL (0.2-0.9); Monocytes % 21.8 %; Neutrophils % 42.8 %; Nucleated Red Blood Cells % 0 %; Platelet Count 101 10^3/cmm (157-399); Red Blood Count 2.45 10^6/uL (3.85-5.65); Red Cell Distribution Width 18.2 % (12.1-15.1); White Blood Count 2.29 10^3/uL (3.29-11.43)
[2024-03-24 13:59] LABS: Neutrophils # 0.98 10^3/uL (1.8-7.7)
== END 2024-03-28 23:59 | disposition home or self-care (01) ==
PROVIDERS: Internal Medicine Hematology & Oncology; PCP Internal Medicine; Visit Provider Internal Medicine Medical Oncology
DX: C92.00 Acute myeloblastic leukemia, not having achieved remission (principal); M79.672 Pain in left foot; Z53.9 Procedure and treatment not carried out, unspecified reason
CPT/HCPCS: 36591; 85025

== ENCOUNTER 2024-04-27 14:15 | Oncology outpatient (recurring) (ONCR) | payer MEDICARE, SELFPAY ==
[2024-04-06 10:27] LABS: Basophils % 0.3 %; Eosinophils % 0.9 %; Hematocrit 28.1 % (36-47); Lymphocytes # 1.1 10^3/uL (0.8-4.8); Lymphocytes % 34.2 %; Mean Corpuscular HGB Conc 31.3 g/dL (30-55); Mean Corpuscular Volume 108.5 fl (85-98); Mean Platelet Volume 10.2 fL (7.4-10.4); Monocytes # 0.6 10^3/uL (0.2-0.9); Monocytes % 17.7 %; Neutrophils # 1.47 10^3/uL (1.8-7.7); Neutrophils % 46.6 %; Nucleated Red Blood Cells % 0 %; Platelet Count 119 10^3/cmm (157-399); Red Blood Count 2.59 10^6/uL (3.85-5.65); Red Cell Distribution Width 19.4 % (12.1-15.1); White Blood Count 3.16 10^3/uL (3.29-11.43)
[2024-04-06 10:48] LABS: Alanine Aminotransferase 17 U/L (0-33); Albumin Level 4.1 g/dL (3.5-5.2); Alkaline Phosphatase 82 U/L (35-105); Aspartate Amino Transferase 26 U/L (0-32); Blood Urea Nitrogen 8 mg/dL (8-23); Calcium 8.7 mg/dL (8.5-10.5); Carbon Dioxide 23 mmol/L (22-29); Chloride 105 mmol/L (98-107); Creatinine Clr Calc Pharmacy 54.7434; Globulin 2.8 g/dL (1.3-4.6); Glucose 103 mg/dL (65-115); Osmolality Calculated 285 mOsm/kg (285-295); Sodium 138 mmol/L (136-145); Total Bilirubin 0.6 mg/dL (0.15-1.2); Total Protein 6.9 g/dL (6.6-8.7); Uric Acid 3.4 mg/dL (2.4-5.7)
[2024-04-06 11:14] LABS: Anion Gap 13.7 (5-19); Lactate Dehydrogenase 270 U/L (135-214); Potassium 3.7 mmol/L (3.5-5.1)
[2024-04-06] MEDS: sodium chloride 0.9% 250 ML 75 ML IV (11:59)
[2024-04-06] MEDS: ondansetron 2 mg/ML SDV 2 mL 8 MG IVP (12:02)
[2024-04-06] MEDS: DECITABINE IV (12:45)
[2024-04-06] MEDS: SODIUM CHLORIDE 0.9% IV (12:45)
[2024-04-06 12:47] VITALS: BP 166/62; PULSE 57; RESP 17; TEMP 36.4; O2SAT 97
[2024-04-06 14:15] VITALS: BP 177/64; PULSE 61; RESP 17; TEMP 36.8; O2SAT 95
[2024-04-07 11:15] VITALS: BP 196/74; PULSE 58; RESP 16; TEMP 36.6; O2SAT 95
--- NOTE | 2024-04-07 11:24 | PC.NURSE ---
1115- Patient reports that her blood pressure continues to run high, but also states that she has not consistently taken her Losartan as ordered. It is 1120 and she has not taken her blood pressure medication today, bp196/74. Patient takes as instructed now by nurse prior to chemotherapy day 2 treatment. Nurse will recheck blood pressure in 30 minutes prior to chemotherapy administration. Patient verbalized understanding to take Losartan on schedule about every 12 hours around 10am/10pm daily. Patient agrees with plan and to set alarm to take her medications when she sleeps in. Nurse notified Dr. Jorge of patient's blood pressure and he is aware. Continue with treatment and monitor blood pressure. - Huey Schumacher.
[2024-04-07] MEDS: sodium chloride 0.9% 250 ML 75 ML IV (11:34)
[2024-04-07] MEDS: ondansetron 2 mg/ML SDV 2 mL 8 MG IVP (11:34)
[2024-04-07 12:22] VITALS: BP 202/74; PULSE 57; RESP 17; O2SAT 95
--- NOTE | 2024-04-07 12:26 | PC.NURSE ---
1225- recheck of bp 202/76, 1 hour post Losartan 50mg. Patient reports that she has been weaned off of her Lexapro 20mg, to 10mg x 2 days, and has not taken Lexapro for the last 2 days. She has stopped the medication to start a new anti-depressant medication. Per Dr. Jorge, patient may continue with todays treatment of day 2 decitabine 32mg. This will not effect her blood pressure. Continue as ordered and patient to follow up with primary care to address blood pressure and anti-depressant medications. Patient verbalized understanding. Patient has family with her who verbalize agreement with plan as well. -Huey Schumacher.
[2024-04-07] MEDS: DECITABINE IV (12:42)
[2024-04-07] MEDS: SODIUM CHLORIDE 0.9% IV (12:42)
--- NOTE | 2024-04-07 13:26 | PC.NURSE ---
Addendum entered by Nury Tello RN 04/07/24 13:44: Dr. Mercy Rosales- Nurse Odette at #[phone] Original Note: 1310- Spoke with Odette, Nurse with Dr Mercy Rosales, patient's Primary Care Provider. Informed Odette of patient's blood pressures upon arrival and non-compliance with taking Losartan 50mg twice daily as reported by patient. Arrival bp196/74 at 1125, no medications so far, repeat of bp 202/76, 1 hour post Losartan 50mg. Odette is informed that patient has not started new Pristiq 25mg daily, anti-depressant to replace Lexapro, and has not had any Lexapro for [address] Rosales of patient's blood pressures and medications use and non-compliance. Per Odette- medication Pristiq was to start back in December, patient was not ready and then patient decided last week at office visit to start the medication. Nurse informed that patient is weaning off Lexapro to start and is wanting to clarify if she can start Pristiq today, if not taking the Lexapro in 2 days, or needs to take Lexapro every other day for a week? Per Dr. Rosales's orders, as stated by Nurse Odette, patient may start Pristiq 25mg daily today 04/07/2024, discontinue Lexapro as ordered, Oncology to report any high blood pressures with chemo further this week, and patient to comply with Losartan 50mg twice daily at 10am and 10pm if able. Nurse instructed patient and family of Dr. Rosales's orders. Patient verbalized understanding and is able to recall instructions/ family- sister recalls instructions to nurse as well. I spoke with Priscilla Devine with patient updates to follow up with patient tomorrow at chemo. - PRISCILLA Schumacher
[2024-04-07 13:57] VITALS: BP 176/84; PULSE 65; RESP 16; TEMP 36.6; O2SAT 95
[2024-04-08 11:19] VITALS: BP 185/75; PULSE 58; RESP 18; TEMP 36.8; O2SAT 97
[2024-04-08] MEDS: sodium chloride 0.9% 250 ML 75 ML IV (11:37)
[2024-04-08] MEDS: ondansetron 2 mg/ML SDV 2 mL 8 MG IVP (11:37)
[2024-04-08] MEDS: SODIUM CHLORIDE 0.9% IV (11:54)
[2024-04-08] MEDS: DECITABINE IV (11:54)
[2024-04-08 13:33] VITALS: BP 188/71; PULSE 59; TEMP 37; O2SAT 91
[2024-04-09] MEDS: sodium chloride 0.9% 250 ML 75 ML IV (11:20)
[2024-04-09] MEDS: ondansetron 2 mg/ML SDV 2 mL 8 MG IVP (11:21)
[2024-04-09] MEDS: DECITABINE IV (11:54)
[2024-04-09] MEDS: SODIUM CHLORIDE 0.9% IV (11:54)
[2024-04-09 13:06] VITALS: BP 179/73; PULSE 60; RESP 18; TEMP 36.6; O2SAT 98
[2024-04-10 09:20] VITALS: BP 177/77; PULSE 59; RESP 17; TEMP 36.6; O2SAT 97
[2024-04-10] MEDS: sodium chloride 0.9% 250 ML 75 ML IV (09:50)
[2024-04-10] MEDS: ondansetron 2 mg/ML SDV 2 mL 8 MG IVP (09:50)
[2024-04-10] MEDS: DECITABINE IV (10:30)
[2024-04-10] MEDS: SODIUM CHLORIDE 0.9% IV (10:30)
[2024-04-10 12:00] VITALS: BP 193/74; PULSE 66; RESP 16; TEMP 36.2; O2SAT 97
--- NOTE | 2024-04-10 12:13 | PC.NURSE ---
Patient's blood pressure at the end of her treatment was 193/74. Patient and daughter asked if I could try to call Dr. Cantu's office and no one answered and I did not leave a message. This nurse let the patient and daughter know that they need to stop by Dr. Cantu's office today as they were open and talk to her nurse. This nurse gave the patient a print out of the patient's blood pressure readings for this week. Patient and daughter acknowledged understanding and had no other questions.
[2024-04-13 14:54] LABS: Basophils % 0.4 %; Eosinophils % 1.1 %; Hematocrit 28.1 % (36-47); Lymphocytes # 0.9 10^3/uL (0.8-4.8); Lymphocytes % 33.5 %; Mean Platelet Volume 9.3 fL (7.4-10.4); Monocytes # 0.2 10^3/uL (0.2-0.9); Monocytes % 8.6 %; Neutrophils # 1.48 10^3/uL (1.8-7.7); Neutrophils % 55.6 %; Nucleated Red Blood Cells % 0 %; Platelet Count 69 10^3/cmm (157-399); Red Blood Count 2.65 10^6/uL (3.85-5.65); White Blood Count 2.66 10^3/uL (3.29-11.43)
[2024-04-20 14:32] LABS: Basophils % 0.6 %; Eosinophils % 1.2 %; Lymphocytes # 1.1 10^3/uL (0.8-4.8); Lymphocytes % 64.8 %; Mean Corpuscular HGB Conc 31.9 g/dL (30-55); Mean Corpuscular Hemoglobin 33.9 pg (27-33); Mean Corpuscular Volume 106.1 fl (85-98); Monocytes # 0.1 10^3/uL (0.2-0.9); Monocytes % 4.3 %; Neutrophils % 29.1 %; Nucleated Red Blood Cells % 0 %; Red Blood Count 2.45 10^6/uL (3.85-5.65); Red Cell Distribution Width 18.7 % (12.1-15.1); White Blood Count 1.62 10^3/uL (3.29-11.43)
[2024-04-20 14:37] LABS: Neutrophils # 0.47 10^3/uL (1.8-7.7); Platelet Count 18 10^3/cmm (157-399)
[2024-04-20 14:48] LABS: Free T4 Free Thyroxine 0.99 ng/dL (0.82-1.77); Thyroid Stimulating Hormone 2.42 uIU/mL (0.27-4.20)
[2024-04-23 10:32] LABS: Basophils % 0.6 %; Eosinophils % 2.6 %; Hematocrit 25.2 % (36-47); Lymphocytes % 65.2 %; Mean Corpuscular HGB Conc 32.9 g/dL (30-55); Mean Corpuscular Hemoglobin 34.4 pg (27-33); Mean Corpuscular Volume 104.6 fl (85-98); Monocytes % 2.6 %; Nucleated Red Blood Cells % 1.3 %; Red Blood Count 2.41 10^6/uL (3.85-5.65); Red Cell Distribution Width 19.6 % (12.1-15.1); White Blood Count 1.55 10^3/uL (3.29-11.43)
[2024-04-23 10:36] LABS: Neutrophils # 0.45 10^3/uL (1.8-7.7); Platelet Count 17 10^3/cmm (157-399)
[2024-04-27 14:40] LABS: Basophils % 0.8 %; Eosinophils % 1.6 %; Hematocrit 25.9 % (36-47); Lymphocytes # 1.2 10^3/uL (0.8-4.8); Lymphocytes % 89.9 %; Mean Corpuscular HGB Conc 31.7 g/dL (30-55); Mean Corpuscular Hemoglobin 33.7 pg (27-33); Mean Corpuscular Volume 106.6 fl (85-98); Monocytes % 0.8 %; Neutrophils % 6.1 %; Nucleated Red Blood Cells % 0 %; Platelet Count 29 10^3/cmm (157-399); Red Blood Count 2.43 10^6/uL (3.85-5.65); Red Cell Distribution Width 21.2 % (12.1-15.1); White Blood Count 1.29 10^3/uL (3.29-11.43)
[2024-04-27 15:05] LABS: Slide Review Slide Review Perform
[2024-04-27 15:07] LABS: Neutrophils # 0.08 10^3/uL (1.8-7.7)
== END 2024-04-28 23:59 | disposition home or self-care (01) ==
PROVIDERS: Internal Medicine Hematology & Oncology; PCP Internal Medicine; Visit Provider Internal Medicine Medical Oncology
DX: C92.01 Acute myeloblastic leukemia, in remission (principal); Z53.9 Procedure and treatment not carried out, unspecified reason
CPT/HCPCS: 36591; 80053; 83615; 84439; 84443; 84550; 85025; 86850; 86900; 96375; 96413; 99214; J0894; J2405; J7050

== ENCOUNTER 2024-05-25 14:15 | Oncology outpatient (recurring) (ONCR) | payer MEDICARE, MEDICAID, SELFPAY ==
[2024-04-30 14:43] LABS: Basophils % 0.8 %; Eosinophils % 2.4 %; Hematocrit 28.1 % (36-47); Lymphocytes # 1.2 10^3/uL (0.8-4.8); Mean Corpuscular Hemoglobin 34.5 pg (27-33); Mean Corpuscular Volume 107.7 fl (85-98); Mean Platelet Volume 9.4 fL (7.4-10.4); Monocytes % 1.6 %; Neutrophils % 3.2 %; Nucleated Red Blood Cells % 0 %; Platelet Count 76 10^3/cmm (157-399); Red Blood Count 2.61 10^6/uL (3.85-5.65); Red Cell Distribution Width 21.5 % (12.1-15.1); White Blood Count 1.25 10^3/uL (3.29-11.43)
[2024-04-30 15:02] LABS: Alanine Aminotransferase 11 U/L (0-33); Albumin Level 4.5 g/dL (3.5-5.2); Alkaline Phosphatase 82 U/L (35-105); Anion Gap 16.2 (5-19); Aspartate Amino Transferase 21 U/L (0-32); Blood Urea Nitrogen 12 mg/dL (8-23); Calcium 9.3 mg/dL (8.5-10.5); Carbon Dioxide 23 mmol/L (22-29); Chloride 103 mmol/L (98-107); Globulin 2.5 g/dL (1.3-4.6); Glucose 97 mg/dL (65-115); Osmolality Calculated 286 mOsm/kg (285-295); Potassium 4.2 mmol/L (3.5-5.1); Sodium 138 mmol/L (136-145); Total Bilirubin 0.8 mg/dL (0.15-1.2)
[2024-04-30 15:38] LABS: Slide Review Slide Review Perform
[2024-04-30 15:39] LABS: Neutrophils # 0.04 10^3/uL (1.8-7.7)
[2024-05-04 13:50] LABS: Basophils % 0.7 %; Eosinophils # 0.1 10^3/uL (0.0-0.8); Eosinophils % 3.5 %; Hematocrit 27.8 % (36-47); Lymphocytes # 1.2 10^3/uL (0.8-4.8); Lymphocytes % 83.7 %; Mean Corpuscular Hemoglobin 35.2 pg (27-33); Mean Corpuscular Volume 109.9 fl (85-98); Mean Platelet Volume 10.2 fL (7.4-10.4); Monocytes % 2.8 %; Neutrophils % 9.3 %; Nucleated Red Blood Cells % 0 %; Platelet Count 203 10^3/cmm (157-399); Red Blood Count 2.53 10^6/uL (3.85-5.65); Red Cell Distribution Width 21.5 % (12.1-15.1); White Blood Count 1.41 10^3/uL (3.29-11.43)
[2024-05-04 14:05] LABS: Neutrophils # 0.13 10^3/uL (1.8-7.7)
[2024-05-04 14:06] LABS: Slide Review Slide Review Perform
[2024-05-04 14:25] LABS: Vitamin B12 265 pg/mL (232-1245)
[2024-05-11 14:42] LABS: Basophils % 0.5 %; Eosinophils % 0.9 %; Hematocrit 27.6 % (36-47); Lymphocytes # 1.2 10^3/uL (0.8-4.8); Lymphocytes % 54.5 %; Mean Corpuscular HGB Conc 31.2 g/dL (30-55); Mean Corpuscular Hemoglobin 34.1 pg (27-33); Mean Corpuscular Volume 109.5 fl (85-98); Mean Platelet Volume 10.2 fL (7.4-10.4); Monocytes # 0.3 10^3/uL (0.2-0.9); Monocytes % 14.6 %; Neutrophils % 29.5 %; Nucleated Red Blood Cells % 0 %; Platelet Count 167 10^3/cmm (157-399); Red Blood Count 2.52 10^6/uL (3.85-5.65); Red Cell Distribution Width 21.2 % (12.1-15.1); White Blood Count 2.13 10^3/uL (3.29-11.43)
[2024-05-11 14:55] LABS: Neutrophils # 0.63 10^3/uL (1.8-7.7)
[2024-05-18 14:21] LABS: Eosinophils % 0.3 %; Hematocrit 28.9 % (36-47); Lymphocytes # 1.4 10^3/uL (0.8-4.8); Lymphocytes % 35.9 %; Mean Corpuscular HGB Conc 31.5 g/dL (30-55); Mean Corpuscular Hemoglobin 34.5 pg (27-33); Mean Corpuscular Volume 109.5 fl (85-98); Mean Platelet Volume 9.6 fL (7.4-10.4); Monocytes # 0.8 10^3/uL (0.2-0.9); Monocytes % 19.5 %; Neutrophils # 1.69 10^3/uL (1.8-7.7); Nucleated Red Blood Cells % 0 %; Platelet Count 91 10^3/cmm (157-399); Red Blood Count 2.64 10^6/uL (3.85-5.65); Red Cell Distribution Width 21.2 % (12.1-15.1); White Blood Count 3.84 10^3/uL (3.29-11.43)
[2024-05-25 14:02] LABS: Basophils % 0.2 %; Eosinophils % 0.2 %; Hematocrit 29.2 % (36-47); Lymphocytes # 1.3 10^3/uL (0.8-4.8); Mean Corpuscular HGB Conc 32.2 g/dL (30-55); Mean Corpuscular Hemoglobin 35.5 pg (27-33); Mean Corpuscular Volume 110.2 fl (85-98); Mean Platelet Volume 10.1 fL (7.4-10.4); Monocytes # 0.8 10^3/uL (0.2-0.9); Monocytes % 18.3 %; Neutrophils # 2.04 10^3/uL (1.8-7.7); Neutrophils % 49.8 %; Nucleated Red Blood Cells % 0 %; Platelet Count 161 10^3/cmm (157-399); Red Blood Count 2.65 10^6/uL (3.85-5.65); Red Cell Distribution Width 20.1 % (12.1-15.1)
[2024-05-25 14:48] LABS: Folate Level 3.7 ng/mL (4.8-37.3)
[2024-05-25 14:50] LABS: Alanine Aminotransferase 11 U/L (0-33); Albumin Level 4.3 g/dL (3.5-5.2); Alkaline Phosphatase 106 U/L (35-105); Anion Gap 15.7 (5-19); Aspartate Amino Transferase 20 U/L (0-32); Blood Urea Nitrogen 10 mg/dL (8-23); Calcium 9.6 mg/dL (8.5-10.5); Carbon Dioxide 25 mmol/L (22-29); Chloride 104 mmol/L (98-107); Ferritin 495 ng/mL (15-150); Glucose 106 mg/dL (65-115); Iron 51 ug/dL (37-145); Osmolality Calculated 291 mOsm/kg (285-295); Percent Saturation 18.2 % (20-50); Potassium 3.7 mmol/L (3.5-5.1); Sodium 141 mmol/L (136-145); Thyroid Stimulating Hormone 3.09 uIU/mL (0.27-4.20); Total Bilirubin 0.7 mg/dL (0.15-1.2); Total Iron Binding Capacity 280 mcg/dl; Total Protein 7.3 g/dL (6.6-8.7); Unsaturated Iron Binding 229 ug/dL (112-347); Vitamin B12 241 pg/mL (232-1245)
== END 2024-05-29 23:59 | disposition home or self-care (01) ==
PROVIDERS: Internal Medicine Medical Oncology; Nurse Practitioner; PCP Internal Medicine; Visit Provider Internal Medicine
DX: Z53.9 Procedure and treatment not carried out, unspecified reason; F32.A Depression, unspecified; F41.9 Anxiety disorder, unspecified; C92.01 Acute myeloblastic leukemia, in remission
CPT/HCPCS: 36591; 80053; 82607; 82728; 82746; 83540; 83550; 84443; 85025; 86850; 86900

== ENCOUNTER 2024-05-27 13:50 | Outpatient (CLI) | payer MEDICARE, MEDICAID, SELFPAY | END 2024-05-27 13:51 | disposition home or self-care (01) | LOC: SLEEP 13:51 | PROVIDERS: PCP Internal Medicine; Visit Provider Internal Medicine | DX: G47.33 Obstructive sleep apnea (adult) (pediatric) (principal); G47.36 Sleep related hypoventilation in conditions classified elsewhere | CPT/HCPCS: G0399 ==

== ENCOUNTER 2024-05-28 15:40 | Emergency (ER) | payer MEDICARE, MEDICAID, SELFPAY ==
[2024-05-28 16:07] VITALS: BP 145/66; PULSE 72; RESP 17; TEMP 37.3; O2SAT 98
--- NOTE | 2024-05-28 16:15 | ECG_ITS ---
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 Measurements Intervals Hurt Rate: 77 P: 62 NM: 131 QRS: 47 QRSD: 96 T: 59 QT: 383 QTc: 436 Interpretive Statements SINUS RHYTHM INCOMPLETE RIGHT BUNDLE BRANCH BLOCK [90+ ms QRS DURATION, TERMINAL R IN V1/V2, 40+ ms S IN I/aVL/V4/V5/V6] MODERATE ST DEPRESSION [0.05+ mV ST DEPRESSION] Compared to ECG 03/20/2024 18:15:32 ST (T wave) deviation now present T-wave abnormality no longer present Electronically Signed On 05-30-2024 13:21:53 [employer] by Cipriano Pak M.D. [email or web address]
--- NOTE | 2024-05-28 16:16 | XRR_ITS ---
PROCEDURE INFORMATION: Exam: XR Chest Exam date and time: 05/28/2024 4:51 PM Age: 74 years old Clinical indication: Other: Weakness TECHNIQUE: Imaging protocol: Radiologic exam of the chest. Views: 1 view. COMPARISON: CR XR chest 1V portable [id number] 03/20/2024 12:10 PM FINDINGS: Tubes, catheters and devices: Left-sided MediPort Lungs: Bibasilar atelectasis. No lobar consolidation. Pleural spaces: Unremarkable. No pleural effusion. No pneumothorax. Heart/Mediastinum: Mild cardiomegaly. Bones/joints: Unremarkable. XR/XR chest 1V portable [id number] IMPRESSION: As above.
--- NOTE | 2024-05-28 16:26 | W.ED.WEAKNES ---
HPI - Weakness General: Chief complaint: Weakness Stated complaint: abnormal labs, cancer pt, fever, headache Time Seen by Provider: 05/28/24 16:14 History of Present Illness: 74-year-old female with history of AML who receives chemotherapy every 8 weeks and is due her next treatment soon, hyperlipidemia, anxiety and depression and fungal pneumonia who presents to the emergency room with fever, malaise, headache, cough. Her was diagnosed with influenza recently. No nausea, vomiting or diarrhea. No chest pain. No abdominal pain. No altered mental status. No focal motor deficits. She has a temp of 99 1 on presentation. She says her temp got as high as 102 last night. Review of Systems Narrative: Constitutional symptoms: Negative except as documented in HPI. Skin symptoms: Negative except as documented in HPI. Eye symptoms: Negative except as documented in HPI. ENMT symptoms: Negative except as documented in HPI. Respiratory symptoms: Negative except as documented in HPI. Cardiovascular symptoms: Negative except as documented in HPI. Gastrointestinal symptoms: Negative except as documented in HPI. Genitourinary symptoms: Negative except as documented in HPI. Musculoskeletal symptoms: Negative except as documented in HPI. Neurologic symptoms: Negative except as documented in HPI. Psychiatric symptoms: Negative except as documented in HPI. Endocrine symptoms: Negative except as documented in HPI. [facility] PFSH: Medical History Acquired immunocompromised state Fungal pneumonia History of fungal pneumonia UTI (urinary tract infection) Cough Hyperlipidemia Anxiety and depression COVID-19 Fever AML (acute myeloblastic leukemia) Ulcerative colitis She has had ulcerative colitis since about the age of 32. She is currently not requiring any medication for it. Lichen sclerosus Diagnosed in January 2019 with a vulvar biopsy--- symptoms well controlled with consistent clobetasol use Surgical History Hx of cataract surgery Bilateral cataract excisions Port-A-Cath in place (09/04/21) right IJ S/P section Performed in the 1970s via vertical midline infraumbilical incision Family History Sister Hyperlipidemia Hypertension Vulvar cancer Brother Hyperlipidemia Hypertension Diabetes Father Stroke Denies family history of Cervical cancer Colon cancer Ovarian cancer DVT (deep venous thrombosis) Breast cancer Pulmonary embolism Uterine cancer Social History Smoking and tobacco/nicotine status: never used tobacco/nicotine Substance/Drug Use: unknown Physical Exam Narrative: EXAM NARRATIVE: General: Alert, no acute distress. Skin: Warm, dry. Head: Normocephalic, atraumatic. Neck: Supple, trachea midline. Eye: Extraocular movements are intact. Ears, nose, mouth and throat: mucosa moist. Cardiovascular: Regular, Normal peripheral perfusion. Respiratory: Lungs are clear to auscultation, respirations are non-labored, breath sounds are equal, Symmetrical chest wall expansion. Gastrointestinal: Soft, Nontender, Non distended Musculoskeletal: Normal ROM, no deformity. Neurological: Alert and oriented, No focal neurological deficit observed. Psychiatric: Cooperative, appropriate mood & affect. Course Vital Signs: Vital signs: Vital Signs Temperature 99.1 F 05/28/24 16:07 Pulse Rate 81 05/28/24 17:54 Respiratory Rate 23 H 05/28/24 17:54 Blood Pressure 139/55 05/28/24 17:54 Pulse Oximetry 94 05/28/24 17:54 Oxygen Delivery Me thod Room Air 05/28/24 17:18 MDM - Weakness Medical Decision Making Differential diagnosis for patient with shortness of breath, fevers and immunocompromise includes but is not limited to and based on the above HPI, review of systems and physical exam: Pneumonia. Bronchitis. Asthma or COPD with acute exacerbation. Acute coronary syndrome / IN. Pulmonary embolism. Anxiety. Congestive heart failure. Viral infections including influenza and Covid-19. Atrial fibrillation. Anxiety. Pleural effusion. Pneumothorax. Orders placed to evaluate differential diagnosis based on the above differential, HPI and physical exam EKG: Time 1702. Rate 77. Normal sinus rhythm, nonspecific ST depression, no ectopy, normal TX & QRS intervals, This was reviewed and interpreted by myself the ER physician at 1705. Chest x-ray: Left-sided port in place. No acute process. No infiltrate. No pneumothorax. This was reviewed and interpreted by myself the emergency room physician. I also reviewed the radiology report. Lab Review: Laboratory results were reviewed and interpreted by myself the emergency room physician. Leukopenic. With an ANC of just over thousand. Hemoglobin is stable at 9.2. Platelets are little low at 153. No renal failure. Urinalysis is negative for infection. I reviewed the patient's medical record. Reexamination: Patient has remained stable. Oxygen saturations in the mid to low 90s. No oxygen requirement or increased work of breathing at this time. No altered mental status. We discussed that she has fluid. We discussed that I talk with Dr. Jorge. Consultation: I spoke with Dr. Dangelo. He agrees with Tamiflu and discharged home. This time he does not have any other recommendations for intervention. Assessment and plan: Influenza A AML ? First dose Tamiflu here in the emergency room. - Discharged home - Discussed plan with patient. Answered any questions. - Evaluation and treatment of this problem were appropriate in the emergency setting. Lab Data 05/28/24 14:45 05/28/24 14:45 Radiology Impressions Chest X-Ray 05/28/24 16:16 IMPRESSION: As above. Laboratory Results WBC 2.02 10^3/uL (3.29-11.43) L 05/28/24 14:45 RBC 2.67 10^6/uL (3.85-5.65) L 05/28/24 14:45 Hgb 9.20 g/dL (11.27-16.99) L 05/28/24 14:45 Hct 29.4 % (36-47) L 05/28/24 14:45 MCV 110.1 fl (85-98) H 05/28/24 14:45 MCH 34.5 pg (27-33) H 05/28/24 14:45 MCHC 31.3 g/dL (30-55) 05/28/24 14:45 RDW 19.9 % (12.1-15.1) H 05/28/24 14:45 Plt Count 153 10^3/cmm (157-399) L 05/28/24 14:45 MPV 10.5 fL (7.4-10.4) H 05/28/24 14:45 Neut % (Auto) 55.5 % 05/28/24 14:45 Lymph % (Auto) 15.8 % 05/28/24 14:45 Archuleta % (Auto) 28.2 % 05/28/24 14:45 Eos % (Auto) 0.0 % 05/28/24 14:45 Baso % (Auto) 0.0 % 05/28/24 14:45 Neut # (Auto) 1.12 10^3/uL (1.8-7.7) L 05/28/24 14:45 Lymph # (Auto) 0.3 10^3/uL (0.8-4.8) L 05/28/24 14:45 Archuleta # (Auto) 0.6 10^3/uL (0.2-0.9) 05/28/24 14:45 Eos # (Auto) 0.0 10^3/uL (0.0-0.8) 05/28/24 14:45 Baso # (Auto) 0.0 10^3/uL (0.0-0.1) 05/28/24 14:45 Nucleated RBC % (auto) 0 % 05/28/24 14:45 Nucleated RBCs # 0.0 /100WBC 05/28/24 14:45 Sodium 135 mmol/L (136-145) L 05/28/24 14:45 Potassium 3.9 mmol/L (3.5-5.1) 05/28/24 14:45 Chloride 99 mmol/L (98-107) 05/28/24 14:45 Carbon Dioxide 25 mmol/L (22-29) 05/28/24 14:45 Anion Gap 14.9 (5-19) 05/28/24 14:45 BUN 9 mg/dL (8-23) 05/28/24 14:45 Creatinine 0.7 mg/dL (0.5-0.9) 05/28/24 14:45 GFR Calculation Not Reportable 05/28/24 14:45 Glucose 132 mg/dL (65-115) H 05/28/24 14:45 Calculated Osmolality 281 mOsm/kg (285-295) L 05/28/24 14:45 Lactic Acid 1.3 mmol/L (0.5-2.2) 05/28/24 14:45 Calcium 9.3 mg/dL (8.5-10.5) 05/28/24 14:45 Total Bilirubin 0.5 mg/dL (0.15-1.2) 05/28/24 14:45 AST 22 U/L (0-32) 05/28/24 14:45 ALT 11 U/L (0-33) 05/28/24 14:45 Alkaline Phosphatase 99 U/L (35-105) 05/28/24 14:45 C-Reactive Protein 61.9 mg/L (0.0-4.9) H 05/28/24 14:45 Total Protein 7.1 g/dL (6.6-8.7) 05/28/24 14:45 Albumin 4.2 g/dL (3.5-5.2) 05/28/24 14:45 Globulin 2.9 g/dL (1.3-4.6) 05/28/24 14:45 Procalcitonin 0.12 ng/mL (0-0.5) 05/28/24 14:45 Urine Color Yellow (Yellow) 05/28/24 16:48 Urine Appearance Clear (CLEAR) 05/28/24 16:48 Urine pH 6.5 (5-7) 05/28/24 16:48 Ur Specific Mccrory 1.027 (1.005-1.030) 05/28/24 16:48 Urine Protein 2+ (Negative) A 05/28/24 16:48 Urine Glucose (UA) Negative (Normal) 05/28/24 16:48 Urine Ketones Trace (Negative) 05/28/24 16:48 Urine Blood Negative (Negative) 05/28/24 16:48 Urine Nitrate Negative (Negative) 05/28/24 16:48 Urine Bilirubin Negative (Negative) 05/28/24 16:48 Urine Urobilinogen 2.0 mg/dL (Negative) H 05/28/24 16:48 Ur Leukocyte Esterase Negative (Negative) 05/28/24 16:48 Urine RBC 0-2 /hpf (0-2) 05/28/24 16:48 Urine WBC 0-5 /hpf (0-5) 05/28/24 16:48 Ur Squamous Epith Cells 0-5 /hpf (0-5) 05/28/24 16:48 Amorphous Sediment Not Reportable 05/28/24 16:48 Urine Bacteria None seen /hpf (NONE) 05/28/24 16:48 Hyaline Casts 2.05 /lpf 05/28/24 16:48 Coronavirus (PCR) Negative (Negative) 05/28/24 16:38 Influenza A (PCR) Positive (Negative) 05/28/24 16:38 Influenza Type B (PCR) Negative (Negative) 05/28/24 16:38 RSV (PCR) Negative (Negative) 05/28/24 16:38 All radiology interpretation(s) finalized by discharge Discharge Plan Discharge Patient Disposition: Home Clinical Impression: Influenza A AML (acute myeloblastic leukemia) Qualifiers: Leukemia Active/Remission status: in remission Qualified Code(s): C92.01 - Acute myeloblastic leukemia, in remission Condition: Stable Prescriptions: New oseltamivir [Tamiflu] 75 mg capsule 75 mg PO BID 5 Days Qty: 10 0RF No Action acetaminophen [Tylenol Extra Strength] 500 mg tablet 500 mg PO Q6H PRN (Reason: Pain) losartan 50 mg tablet 50 mg PO DAILY senna 8.6 mg capsule 8.6 mg PO BEDTIME fluticasone furoate-vilanterol [Breo Ellipta] 100-25 mcg/dose blister with device 1 inh inhalation DAILY PRN (Reason: unknown) Qty: 60 0RF lidocaine-prilocaine 2.5-2.5 % cream See Rx Instructions .ROUTE .COMPLEX Qty: 30 3RF Dose Instruction: APPLY 45 MINUTES PRIOR TO PORT ACCESS Rx Instructions: APPLY 45 MINUTES PRIOR TO PORT ACCESS ciprofloxacin HCl 500 mg tablet 500 mg PO Q12H Qty: 60 2RF posaconazole 100 mg tablet,delayed release (DR/EC) 300 mg PO QAM Qty: 90 11RF Rx Instructions: TAKE 3 TABLETS BY MOUTH EVERY MORNING acyclovir 400 mg tablet See Rx Instructions .ROUTE .COMPLEX Qty: 90 3RF Dose Instruction: TAKE 1 TABLET BY MOUTH THREE TIMES DAILY at 9am, 2pm and 8pm Rx Instructions: TAKE 1 TABLET BY MOUTH THREE TIMES DAILY at 9am, 2pm and 8pm biotin 10,000 mcg Capsule 10,000 mcg PO DAILY Probiotic Blend 2 billion cell-50 mg Capsule 1 cap PO DAILY Rx Instructions: give with meal/snack desvenlafaxine succinate 25 mg tablet extended release 24 hr 25 mg PO DAILY potassium chloride 10 mEq capsule, extended release 10 meq PO DAILY levothyroxine 25 mcg tablet 25 mcg PO DAILY Discharge Orders: Discharge ED (Routine); Ordered 05/28/24 Ordered By: Génesis Vasquez Referrals: Mercy Rosales MD [Primary Care Provider] - Discharge Diet: Usual diet Discharge Activity: Increase activity as tolerated Patient Instructions: Influenza (ED), Opioid Safety, Pain Management Activity Restrictions/Additional Instructions: Return to the emergency room if you have oxygen saturations consistently below 90, if your work of breathing becomes worse, if your symptoms worsen in any things such as chest pain, confusion. Thank you for choosing [facility] for your healthcare needs today. Please realize this is an emergency room and that we are providing you with a medical screening exam and this may not be complete and all inclusive of all the testing and or work up that you may need to determine your ailment or severity of your illness. You have been screened and evaluated and felt safe for discharge. Health conditions do change or evolve sometimes and as such it is important that you follow up with your Primary Doctor to be re checked, 3-5 days is a general good time frame for follow up. You are always welcome to return to the ED for re assessment if your symptoms are worsening or you have new concerns Coding Level of Care Code ED Combat Engineer for Cb Fwd Related Data Home Medications Medication Instructions Recorded Confirmed acetaminophen 500 mg tablet 500 mg PO Q6H PRN Pain 12/13/20 05/28/24 (Tylenol Extra Strength) losartan 50 mg tablet 50 mg PO DAILY 08/08/21 05/28/24 biotin 10,000 mcg capsule 10,000 mcg PO DAILY 09/01/21 05/28/24 sennosides 8.6 mg capsule (senna) 8.6 mg PO BEDTIME Constipation 06/11/22 05/28/24 L.acidophil-L.casei-B.bifid-B.longum-FOS 1 cap PO DAILY 10/17/22 05/28/24 2 billion cell-50 mg capsule (Probiotic Blend) levothyroxine 25 mcg tablet 25 mcg PO DAILY 03/20/24 05/28/24 potassium chloride 10 mEq 10 meq PO DAILY 03/20/24 05/28/24 capsule,extended release desvenlafaxine succinate 25 mg 25 mg PO DAILY 05/28/24 05/28/24 tablet,extended release 24 hr Previous Rx's Medication Instructions Recorded fluticasone furoate 100 1 inh inhalation DAILY PRN unknown 11/11/23 mcg-vilanterol 25 mcg/dose #60 ea inhalation powder (Breo Ellipta) lidocaine-prilocaine 2.5 %-2.5 % See Rx Instructions .Route 04/14/24 topical cream .COMPLEX #30 grams ciprofloxacin HCl 500 mg tablet 500 mg PO Q12H #60 tabs 04/30/24 posaconazole 100 mg tablet,delayed 300 mg (3 x 100 mg) PO QAM #90 tabs 04/30/24 release acyclovir 400 mg tablet See Rx Instructions .Route 05/22/24 .COMPLEX #90 tabs oseltamivir 75 mg capsule (Tamiflu) 75 mg PO BID 5 days #10 caps 05/28/24 Allergies Allergy/AdvReac Type Severity Reaction Status Date / Time adhesive Allergy Unknown Itching/Red Verified 04/06/24 10:20 ness amoxicillin Allergy Rash, Verified 04/06/24 10:20 tongue swelling Penicillins Allergy Rash/tongue Verified 04/06/24 10:20 swelling Sulfa (Sulfonamide Allergy Rash Verified 04/06/24 10:20 Antibiotics) vancomycin AdvReac Mild ADR-Itching Verified 04/06/24 10:20
[2024-05-28 16:48] VITALS: BP 153/52; PULSE 79; RESP 26; O2SAT 92
[2024-05-28 16:55] LABS: Bilirubin Urine Negative (Negative); Blood Urine Negative (Negative); Glucose Urine UA Negative (Normal); Ketones Urine Trace (Negative); Leukocyte Esterase Urine Negative (Negative); Nitrate Urine Negative (Negative); Protein Urine 2+ (Negative); Specific Gravity, Urine 1.027 (1.005-1.030); Urine Appearance Clear (CLEAR); Urine Color Yellow (Yellow); pH Urine 6.5 (5-7)
[2024-05-28 17:00] LABS: Bacteria Urine None Seen /hpf; Hyaline Casts Urine 2.05 /lpf; RBC Urine 0-2 /hpf (0-2); Squamous Epithelial Cell Urine 0-5 /hpf (0-5); WBC Urine 0-5 /hpf (0-5)
[2024-05-28 17:04] LABS: Hematocrit 29.4 % (36-47); Lymphocytes # 0.3 10^3/uL (0.8-4.8); Lymphocytes % 15.8 %; Mean Corpuscular HGB Conc 31.3 g/dL (30-55); Mean Corpuscular Hemoglobin 34.5 pg (27-33); Mean Corpuscular Volume 110.1 fl (85-98); Mean Platelet Volume 10.5 fL (7.4-10.4); Monocytes # 0.6 10^3/uL (0.2-0.9); Monocytes % 28.2 %; Neutrophils # 1.12 10^3/uL (1.8-7.7); Neutrophils % 55.5 %; Nucleated Red Blood Cells % 0 %; Platelet Count 153 10^3/cmm (157-399); Red Blood Count 2.67 10^6/uL (3.85-5.65); Red Cell Distribution Width 19.9 % (12.1-15.1); White Blood Count 2.02 10^3/uL (3.29-11.43)
[2024-05-28 17:18] VITALS: BP 136/56; PULSE 79; RESP 16; O2SAT 96
[2024-05-28 17:30] LABS: Anion Gap 14.9 (5-19); Blood Urea Nitrogen 9 mg/dL (8-23); Calcium 9.3 mg/dL (8.5-10.5); Carbon Dioxide 25 mmol/L (22-29); Chloride 99 mmol/L (98-107); Creatinine Clr Calc Pharmacy 52.0124; Potassium 3.9 mmol/L (3.5-5.1); Sodium 135 mmol/L (136-145); Total Bilirubin 0.5 mg/dL (0.15-1.2); Total Protein 7.1 g/dL (6.6-8.7)
[2024-05-28 17:32] LABS: Covid PCR NEGATIVE (Negative); Influenza A POSITIVE (Negative); Influenza B NEGATIVE (Negative); Respiratory Syncytial Virus Ce NEGATIVE (Negative)
[2024-05-28 17:54] VITALS: BP 139/55; PULSE 81; RESP 23; O2SAT 94
[2024-05-28 18:06] LABS: Alanine Aminotransferase 11 U/L (0-33); Albumin Level 4.2 g/dL (3.5-5.2); Alkaline Phosphatase 99 U/L (35-105); Aspartate Amino Transferase 22 U/L (0-32); C Reactive Protein 61.9 mg/L (0.0-4.9); Globulin 2.9 g/dL (1.3-4.6); Glucose 132 mg/dL (65-115); Lactic Sepsis W/Reflex 1.3 mmol/L (0.5-2.2); Osmolality Calculated 281 mOsm/kg (285-295)
[2024-05-28 18:13] LABS: Procalcitonin 0.12 ng/mL (0-0.5)
[2024-05-28] MEDS: oseltamivir phosphate 75 mg Capsule PO (18:36)
[2024-05-28 18:37] VITALS: BP 141/73; PULSE 73; O2SAT 98
== END 2024-05-28 18:38 | disposition home or self-care (01) ==
PROVIDERS: Emergency Provider Emergency Medicine; PCP Internal Medicine
DX: J10.1 Influenza due to other identified influenza virus with other respiratory manifestations (principal); Z11.52 Encounter for screening for COVID-19; C92.01 Acute myeloblastic leukemia, in remission; E78.5 Hyperlipidemia, unspecified; Z92.21 Personal history of antineoplastic chemotherapy
CPT/HCPCS: 36415; 71045; 80053; 81001; 83605; 84145; 85025; 86140; 87040; 87637; 93005; 99285

== ENCOUNTER 2024-06-18 12:30 | Oncology outpatient (recurring) (ONCR) | payer MEDICARE, SELFPAY ==
[2024-06-01 10:27] LABS: Eosinophils % 0.5 %; Hematocrit 27.9 % (36-47); Lymphocytes # 0.9 10^3/uL (0.8-4.8); Lymphocytes % 39.5 %; Mean Corpuscular HGB Conc 30.8 g/dL (30-55); Mean Corpuscular Hemoglobin 33.7 pg (27-33); Mean Corpuscular Volume 109.4 fl (85-98); Mean Platelet Volume 10.8 fL (7.4-10.4); Monocytes # 0.3 10^3/uL (0.2-0.9); Monocytes % 14.1 %; Neutrophils % 44.1 %; Nucleated Red Blood Cells % 0 %; Platelet Count 105 10^3/cmm (157-399); Red Blood Count 2.55 10^6/uL (3.85-5.65); Red Cell Distribution Width 19.3 % (12.1-15.1)
[2024-06-01 10:32] LABS: Neutrophils # 0.97 10^3/uL (1.8-7.7)
[2024-06-01 10:47] LABS: Alanine Aminotransferase 11 U/L (0-33); Alkaline Phosphatase 77 U/L (35-105); Anion Gap 13.4 (5-19); Aspartate Amino Transferase 25 U/L (0-32); Blood Urea Nitrogen 10 mg/dL (8-23); Carbon Dioxide 25 mmol/L (22-29); Chloride 103 mmol/L (98-107); Globulin 2.8 g/dL (1.3-4.6); Glucose 97 mg/dL (65-115); Osmolality Calculated 285 mOsm/kg (285-295); Potassium 3.4 mmol/L (3.5-5.1); Sodium 138 mmol/L (136-145); Total Bilirubin 0.4 mg/dL (0.15-1.2); Total Protein 6.8 g/dL (6.6-8.7)
--- NOTE | 2024-06-01 12:20 | PC.NURSE ---
Patient came in to have labs drawn and said that she was going to [facility] to be admitted as she had the flu. Per patient she wanted her port to stay accessed as Dr. Tipton was going to admit her. Patient asked if I could fax the lab results to Dr. Tipton when they resulted. Lab results faxed to Dr. Tipton.
[2024-06-09 11:05] LABS: Basophils % 0.2 %; Eosinophils % 0.7 %; Hematocrit 33.2 % (36-47); Lymphocytes # 1.2 10^3/uL (0.8-4.8); Lymphocytes % 26.2 %; Mean Corpuscular HGB Conc 31.3 g/dL (30-55); Mean Corpuscular Hemoglobin 31.9 pg (27-33); Mean Corpuscular Volume 101.8 fl (85-98); Mean Platelet Volume 9.5 fL (7.4-10.4); Monocytes # 0.7 10^3/uL (0.2-0.9); Monocytes % 14.6 %; Neutrophils # 2.59 10^3/uL (1.8-7.7); Neutrophils % 57.4 %; Nucleated Red Blood Cells % 0 %; Platelet Count 90 10^3/cmm (157-399); Red Blood Count 3.26 10^6/uL (3.85-5.65); Red Cell Distribution Width 20.7 % (12.1-15.1); White Blood Count 4.51 10^3/uL (3.29-11.43)
[2024-06-09 11:25] LABS: Alanine Aminotransferase 15 U/L (0-33); Alkaline Phosphatase 93 U/L (35-105); Aspartate Amino Transferase 23 U/L (0-32); Blood Urea Nitrogen 10 mg/dL (8-23); Calcium 9.3 mg/dL (8.5-10.5); Carbon Dioxide 25 mmol/L (22-29); Chloride 102 mmol/L (98-107); Globulin 2.8 g/dL (1.3-4.6); Glucose 101 mg/dL (65-115); Osmolality Calculated 285 mOsm/kg (285-295); Sodium 138 mmol/L (136-145); Total Bilirubin 0.5 mg/dL (0.15-1.2); Total Protein 6.8 g/dL (6.6-8.7)
[2024-06-09 11:55] LABS: Anion Gap 15.2 (5-19); Potassium 4.2 mmol/L (3.5-5.1)
[2024-06-09] MEDS: sodium chloride 0.9% 250 ML 75 ML IV (11:57)
[2024-06-09] MEDS: ondansetron 2 mg/ML SDV 2 mL 8 MG IVP (11:57)
[2024-06-09] MEDS: DECITABINE IV (12:26)
[2024-06-09] MEDS: SODIUM CHLORIDE 0.9% IV (12:26)
[2024-06-09 13:25] VITALS: BP 151/71; PULSE 64; TEMP 36.7; O2SAT 95
[2024-06-10 13:49] VITALS: BP 156/79; PULSE 70; RESP 16; TEMP 36.4; O2SAT 95
[2024-06-10] MEDS: sodium chloride 0.9% 250 ML 75 ML IV (14:02)
[2024-06-10] MEDS: ondansetron 2 mg/ML SDV 2 mL 8 MG IVP (14:02)
[2024-06-10] MEDS: DECITABINE IV (14:19)
[2024-06-10] MEDS: SODIUM CHLORIDE 0.9% IV (14:19)
[2024-06-10 15:23] VITALS: BP 158/78; PULSE 93; RESP 16; TEMP 36.8; O2SAT 94
[2024-06-11] MEDS: sodium chloride 0.9% 250 ML 75 ML IV (13:11)
[2024-06-11] MEDS: ondansetron 2 mg/ML SDV 2 mL 8 MG IVP (13:12)
[2024-06-11 13:19] VITALS: BP 152/68; PULSE 68; RESP 18; TEMP 36.4; O2SAT 97
[2024-06-11] MEDS: DECITABINE IV (13:35)
[2024-06-11] MEDS: SODIUM CHLORIDE 0.9% IV (13:35)
[2024-06-11 14:47] VITALS: BP 155/66; PULSE 78; RESP 18; TEMP 36.6; O2SAT 98
[2024-06-12 10:51] VITALS: BP 146/72; PULSE 64; RESP 17; TEMP 31.8; O2SAT 64
[2024-06-12] MEDS: ondansetron 2 mg/ML SDV 2 mL 8 MG IVP (11:01)
[2024-06-12] MEDS: sodium chloride 0.9% 250 ML 75 ML IV (11:01)
[2024-06-12] MEDS: SODIUM CHLORIDE 0.9% IV (11:24)
[2024-06-12] MEDS: DECITABINE IV (11:24)
[2024-06-12 12:37] VITALS: BP 148/69; PULSE 62; RESP 16; TEMP 37.1; O2SAT 100
[2024-06-15 13:12] VITALS: BP 143/74; PULSE 69; TEMP 36.3; O2SAT 96
[2024-06-15] MEDS: sodium chloride 0.9% 250 ML 75 ML IV (13:31)
[2024-06-15] MEDS: ondansetron 2 mg/ML SDV 2 mL 8 MG IVP (13:32)
[2024-06-15] MEDS: DECITABINE IV (14:03)
[2024-06-15] MEDS: SODIUM CHLORIDE 0.9% IV (14:03)
[2024-06-15 15:16] VITALS: BP 153/76; PULSE 67; TEMP 36.9; O2SAT 94
[2024-06-18 12:45] LABS: Basophils % 0.5 %; Hematocrit 30.6 % (36-47); Lymphocytes % 25.4 %; Mean Corpuscular HGB Conc 31.7 g/dL (30-55); Mean Platelet Volume 9.9 fL (7.4-10.4); Monocytes # 0.2 10^3/uL (0.2-0.9); Monocytes % 4.7 %; Neutrophils # 2.57 10^3/uL (1.8-7.7); Neutrophils % 67.4 %; Nucleated Red Blood Cells % 0 %; Platelet Count 67 10^3/cmm (157-399); Red Blood Count 3.03 10^6/uL (3.85-5.65); Red Cell Distribution Width 19.4 % (12.1-15.1); White Blood Count 3.82 10^3/uL (3.29-11.43)
[2024-06-18 13:03] LABS: Alanine Aminotransferase 14 U/L (0-33); Albumin Level 4.2 g/dL (3.5-5.2); Alkaline Phosphatase 96 U/L (35-105); Aspartate Amino Transferase 25 U/L (0-32); Blood Urea Nitrogen 11 mg/dL (8-23); Carbon Dioxide 23 mmol/L (22-29); Chloride 103 mmol/L (98-107); Creatinine Clr Calc Pharmacy 58.7162; Ferritin 712 ng/mL (15-150); Globulin 2.5 g/dL (1.3-4.6); Glucose 125 mg/dL (65-115); Iron 99 ug/dL (37-145); Osmolality Calculated 287 mOsm/kg (285-295); Percent Saturation 38.6 % (20-50); Sodium 138 mmol/L (136-145); Total Bilirubin 0.6 mg/dL (0.15-1.2); Total Iron Binding Capacity 256 mcg/dl; Total Protein 6.7 g/dL (6.6-8.7); Unsaturated Iron Binding 157 ug/dL (112-347); Uric Acid 3.8 mg/dL (2.4-5.7)
[2024-06-18 13:04] LABS: Anion Gap 15.7 (5-19); Potassium 3.7 mmol/L (3.5-5.1)
[2024-06-18 13:05] LABS: Lactate Dehydrogenase 214 U/L (135-214)
[2024-06-18 13:18] LABS: Vitamin B12 319 pg/mL (232-1245)
== END 2024-06-26 23:59 | disposition home or self-care (01) ==
PROVIDERS: Internal Medicine Medical Oncology; PCP Internal Medicine; Visit Provider Internal Medicine
DX: C92.01 Acute myeloblastic leukemia, in remission; D75.9 Disease of blood and blood-forming organs, unspecified; T45.1X5A Adverse effect of antineoplastic and immunosuppressive drugs, initial encounter; Z79.899 Other long term (current) drug therapy; Z53.9 Procedure and treatment not carried out, unspecified reason
CPT/HCPCS: 36591; 80053; 82533; 82607; 82728; 82746; 83540; 83550; 83615; 84550; 85025; 96375; 96413; 99213; J0894; J2405; J7050

== ENCOUNTER 2024-07-22 13:00 | Oncology outpatient (recurring) (ONCR) | payer MEDICARE, SELFPAY ==
[2024-07-01 13:15] LABS: Basophils % 0.8 %; Eosinophils % 3.1 %; Hematocrit 30.3 % (36-47); Lymphocytes # 1.1 10^3/uL (0.8-4.8); Mean Corpuscular Hemoglobin 32.1 pg (27-33); Mean Corpuscular Volume 100.3 fl (85-98); Monocytes % 0.8 %; Neutrophils % 6.3 %; Nucleated Red Blood Cells % 0 %; Platelet Count 36 10^3/cmm (157-399); Red Blood Count 3.02 10^6/uL (3.85-5.65); Red Cell Distribution Width 20.4 % (12.1-15.1); White Blood Count 1.27 10^3/uL (3.29-11.43)
[2024-07-01 13:30] LABS: Alanine Aminotransferase 17 U/L (0-33); Albumin Level 4.5 g/dL (3.5-5.2); Alkaline Phosphatase 83 U/L (35-105); Blood Urea Nitrogen 14 mg/dL (8-23); Calcium 9.5 mg/dL (8.5-10.5); Carbon Dioxide 23 mmol/L (22-29); Chloride 103 mmol/L (98-107); Globulin 2.8 g/dL (1.3-4.6); Glucose 102 mg/dL (65-115); Osmolality Calculated 283 mOsm/kg (285-295); Sodium 136 mmol/L (136-145); Total Bilirubin 0.6 mg/dL (0.15-1.2); Total Protein 7.3 g/dL (6.6-8.7)
[2024-07-01 13:42] LABS: Aspartate Amino Transferase 28 U/L (0-32)
[2024-07-01 13:45] LABS: Neutrophils # 0.08 10^3/uL (1.8-7.7)
[2024-07-01 13:46] LABS: Slide Review Slide Review Perform
[2024-07-08 13:17] LABS: Eosinophils % 3.6 %; Hematocrit 28.6 % (36-47); Lymphocytes % 88.4 %; Mean Corpuscular HGB Conc 31.5 g/dL (30-55); Mean Corpuscular Hemoglobin 32.6 pg (27-33); Mean Corpuscular Volume 103.6 fl (85-98); Mean Platelet Volume 10.5 fL (7.4-10.4); Monocytes % 1.8 %; Neutrophils % 6.2 %; Nucleated Red Blood Cells % 0 %; Platelet Count 145 10^3/cmm (157-399); Red Blood Count 2.76 10^6/uL (3.85-5.65); Red Cell Distribution Width 20.5 % (12.1-15.1); White Blood Count 1.12 10^3/uL (3.29-11.43)
[2024-07-08 13:32] LABS: Alanine Aminotransferase 10 U/L (0-33); Albumin Level 4.1 g/dL (3.5-5.2); Alkaline Phosphatase 76 U/L (35-105); Anion Gap 13.9 (5-19); Aspartate Amino Transferase 15 U/L (0-32); Blood Urea Nitrogen 15 mg/dL (8-23); Calcium 9.1 mg/dL (8.5-10.5); Carbon Dioxide 24 mmol/L (22-29); Chloride 105 mmol/L (98-107); Glucose 111 mg/dL (65-115); Osmolality Calculated 290 mOsm/kg (285-295); Potassium 3.9 mmol/L (3.5-5.1); Sodium 139 mmol/L (136-145); Total Bilirubin 0.6 mg/dL (0.15-1.2); Total Protein 7.1 g/dL (6.6-8.7)
[2024-07-08 14:10] LABS: Neutrophils # 0.07 10^3/uL (1.8-7.7)
[2024-07-08 14:11] LABS: Slide Review Slide Review Perform
[2024-07-15 13:57] LABS: Eosinophils % 1.3 %; Hematocrit 27.4 % (36-47); Lymphocytes # 0.8 10^3/uL (0.8-4.8); Lymphocytes % 50.9 %; Mean Corpuscular HGB Conc 31.8 g/dL (30-55); Mean Corpuscular Hemoglobin 33.1 pg (27-33); Mean Corpuscular Volume 104.2 fl (85-98); Mean Platelet Volume 10.7 fL (7.4-10.4); Monocytes # 0.3 10^3/uL (0.2-0.9); Monocytes % 15.7 %; Neutrophils % 31.5 %; Nucleated Red Blood Cells % 0 %; Platelet Count 94 10^3/cmm (157-399); Red Blood Count 2.63 10^6/uL (3.85-5.65); Red Cell Distribution Width 20.2 % (12.1-15.1); White Blood Count 1.59 10^3/uL (3.29-11.43)
[2024-07-15 14:14] LABS: Alanine Aminotransferase 9 U/L (0-33); Albumin Level 4.2 g/dL (3.5-5.2); Alkaline Phosphatase 82 U/L (35-105); Anion Gap 14.1 (5-19); Aspartate Amino Transferase 16 U/L (0-32); Blood Urea Nitrogen 17 mg/dL (8-23); Calcium 9.6 mg/dL (8.5-10.5); Carbon Dioxide 26 mmol/L (22-29); Chloride 103 mmol/L (98-107); Globulin 2.5 g/dL (1.3-4.6); Glucose 95 mg/dL (65-115); Lactate Dehydrogenase 146 U/L (135-214); Osmolality Calculated 289 mOsm/kg (285-295); Potassium 4.1 mmol/L (3.5-5.1); Sodium 139 mmol/L (136-145); Total Bilirubin 0.4 mg/dL (0.15-1.2); Total Protein 6.7 g/dL (6.6-8.7)
[2024-07-22 13:13] LABS: Lymphocytes # 1.5 10^3/uL (0.8-4.8); Lymphocytes % 32.7 %; Mean Corpuscular HGB Conc 32.2 g/dL (30-55); Mean Corpuscular Volume 102.3 fl (85-98); Mean Platelet Volume 10.2 fL (7.4-10.4); Monocytes # 1.4 10^3/uL (0.2-0.9); Monocytes % 28.9 %; Neutrophils # 1.79 10^3/uL (1.8-7.7); Nucleated Red Blood Cells % 0 %; Platelet Count 85 10^3/cmm (157-399); Red Blood Count 2.64 10^6/uL (3.85-5.65); Red Cell Distribution Width 21.2 % (12.1-15.1); White Blood Count 4.71 10^3/uL (3.29-11.43)
[2024-07-22 13:31] LABS: Alanine Aminotransferase 8 U/L (0-33); Albumin Level 4.3 g/dL (3.5-5.2); Alkaline Phosphatase 83 U/L (35-105); Anion Gap 13.4 (5-19); Aspartate Amino Transferase 20 U/L (0-32); Blood Urea Nitrogen 17 mg/dL (8-23); Calcium 9.1 mg/dL (8.5-10.5); Carbon Dioxide 25 mmol/L (22-29); Chloride 103 mmol/L (98-107); Globulin 2.5 g/dL (1.3-4.6); Glucose 83 mg/dL (65-115); Osmolality Calculated 287 mOsm/kg (285-295); Potassium 3.4 mmol/L (3.5-5.1); Sodium 138 mmol/L (136-145); Total Bilirubin 0.4 mg/dL (0.15-1.2); Total Protein 6.8 g/dL (6.6-8.7)
== END 2024-07-27 23:59 | disposition home or self-care (01) ==
PROVIDERS: PCP Internal Medicine; Visit Provider Internal Medicine
DX: Z53.9 Procedure and treatment not carried out, unspecified reason (principal); C92.01 Acute myeloblastic leukemia, in remission
CPT/HCPCS: 36591; 80053; 83615; 85025

== ENCOUNTER 2024-08-26 13:00 | Oncology outpatient (recurring) (ONCR) | payer MEDICARE, SELFPAY ==
[2024-07-29 13:02] LABS: Hematocrit 30.6 % (36-47); Lymphocytes # 1.9 10^3/uL (0.8-4.8); Lymphocytes % 32.9 %; Mean Corpuscular HGB Conc 31.4 g/dL (30-55); Mean Corpuscular Hemoglobin 32.8 pg (27-33); Mean Corpuscular Volume 104.4 fl (85-98); Mean Platelet Volume 9.8 fL (7.4-10.4); Monocytes # 1.3 10^3/uL (0.2-0.9); Neutrophils # 2.45 10^3/uL (1.8-7.7); Neutrophils % 43.4 %; Nucleated Red Blood Cells % 0.7 %; Platelet Count 139 10^3/cmm (157-399); Red Blood Count 2.93 10^6/uL (3.85-5.65); Red Cell Distribution Width 22.1 % (12.1-15.1); White Blood Count 5.65 10^3/uL (3.29-11.43)
[2024-07-29 14:53] LABS: Alanine Aminotransferase 10 U/L (0-33); Albumin Level 4.3 g/dL (3.5-5.2); Alkaline Phosphatase 73 U/L (35-105); Aspartate Amino Transferase 17 U/L (0-32); Blood Urea Nitrogen 16 mg/dL (8-23); Calcium 9.2 mg/dL (8.5-10.5); Carbon Dioxide 27 mmol/L (22-29); Chloride 102 mmol/L (98-107); Globulin 2.4 g/dL (1.3-4.6); Glucose 79 mg/dL (65-115); Osmolality Calculated 288 mOsm/kg (285-295); Sodium 139 mmol/L (136-145); Total Bilirubin 0.4 mg/dL (0.15-1.2); Total Protein 6.7 g/dL (6.6-8.7)
[2024-07-29 15:01] LABS: Anion Gap 13.7 (5-19); Potassium 3.7 mmol/L (3.5-5.1)
[2024-08-05 09:17] LABS: Basophils % 0.2 %; Eosinophils % 0.2 %; Hematocrit 30.3 % (36-47); Lymphocytes # 1.6 10^3/uL (0.8-4.8); Lymphocytes % 37.5 %; Mean Corpuscular Hemoglobin 32.8 pg (27-33); Mean Corpuscular Volume 105.6 fl (85-98); Mean Platelet Volume 10.3 fL (7.4-10.4); Monocytes # 0.6 10^3/uL (0.2-0.9); Neutrophils # 1.94 10^3/uL (1.8-7.7); Neutrophils % 46.4 %; Nucleated Red Blood Cells % 0 %; Platelet Count 126 10^3/cmm (157-399); Red Blood Count 2.87 10^6/uL (3.85-5.65); Red Cell Distribution Width 20.9 % (12.1-15.1); White Blood Count 4.19 10^3/uL (3.29-11.43)
[2024-08-05 09:21] LABS: Reticulocyte % 4.2 % (0.5-2.0)
[2024-08-05 09:38] LABS: Alanine Aminotransferase 12 U/L (0-33); Albumin Level 4.1 g/dL (3.5-5.2); Alkaline Phosphatase 70 U/L (35-105); Anion Gap 15.7 (5-19); Aspartate Amino Transferase 20 U/L (0-32); Blood Urea Nitrogen 11 mg/dL (8-23); C Reactive Protein 21.7 mg/L (0.0-4.9); Calcium 9.4 mg/dL (8.5-10.5); Carbon Dioxide 25 mmol/L (22-29); Chloride 106 mmol/L (98-107); Ferritin 655 ng/mL (15-150); Globulin 2.6 g/dL (1.3-4.6); Glucose 94 mg/dL (65-115); Iron 105 ug/dL (37-145); Osmolality Calculated 295 mOsm/kg (285-295); Percent Saturation 38.3 % (20-50); Phosphorus 3.6 mg/dL (2.5-4.5); Potassium 3.7 mmol/L (3.5-5.1); Sodium 143 mmol/L (136-145); Total Bilirubin 0.3 mg/dL (0.15-1.2); Total Iron Binding Capacity 274 mcg/dl; Total Protein 6.7 g/dL (6.6-8.7); Unsaturated Iron Binding 169 ug/dL (112-347); Uric Acid 3.8 mg/dL (2.4-5.7)
[2024-08-05 09:53] LABS: Vitamin B12 244 pg/mL (232-1245)
[2024-08-05 10:07] LABS: Folate Level 2.9 ng/mL (4.8-37.3)
[2024-08-05 10:13] LABS: Lactate Dehydrogenase 192 U/L (135-214)
[2024-08-10 09:20] LABS: Basophils % 0.2 %; Eosinophils % 0.7 %; Hematocrit 30.3 % (36-47); Lymphocytes # 1.1 10^3/uL (0.8-4.8); Lymphocytes % 25.1 %; Mean Corpuscular Hemoglobin 32.8 pg (27-33); Mean Corpuscular Volume 105.6 fl (85-98); Mean Platelet Volume 10.3 fL (7.4-10.4); Monocytes # 0.8 10^3/uL (0.2-0.9); Monocytes % 17.7 %; Neutrophils # 2.32 10^3/uL (1.8-7.7); Neutrophils % 54.9 %; Nucleated Red Blood Cells % 0 %; Platelet Count 138 10^3/cmm (157-399); Red Blood Count 2.87 10^6/uL (3.85-5.65); Red Cell Distribution Width 20.6 % (12.1-15.1); White Blood Count 4.23 10^3/uL (3.29-11.43)
[2024-08-10 09:34] LABS: Alanine Aminotransferase 10 U/L (0-33); Alkaline Phosphatase 80 U/L (35-105); Blood Urea Nitrogen 11 mg/dL (8-23); Carbon Dioxide 24 mmol/L (22-29); Chloride 103 mmol/L (98-107); Creatinine Clr Calc Pharmacy 51.1739; Ferritin 639 ng/mL (15-150); Globulin 2.5 g/dL (1.3-4.6); Glucose 139 mg/dL (65-115); Iron 60 ug/dL (37-145); Osmolality Calculated 288 mOsm/kg (285-295); Sodium 138 mmol/L (136-145); Total Bilirubin 0.5 mg/dL (0.15-1.2); Total Protein 6.5 g/dL (6.6-8.7); Uric Acid 4.3 mg/dL (2.4-5.7)
[2024-08-10 09:50] LABS: Vitamin B12 239 pg/mL (232-1245)
[2024-08-10 09:56] LABS: Aspartate Amino Transferase 17 U/L (0-32); Percent Saturation 20.5 % (20-50); Total Iron Binding Capacity 292 mcg/dl; Unsaturated Iron Binding 232 ug/dL (112-347)
[2024-08-10 09:57] LABS: Anion Gap 16.1 (5-19); Lactate Dehydrogenase 196 U/L (135-214); Potassium 4.1 mmol/L (3.5-5.1)
[2024-08-10 10:05] LABS: Folate Level 4.9 ng/mL (4.8-37.3)
[2024-08-10 10:07] LABS: Homocysteine 18.46 umol/l (0-15)
[2024-08-10] MEDS: sodium chloride 0.9% 250 ML 75 ML IV (10:13)
[2024-08-10] MEDS: ondansetron 2 mg/ML SDV 2 mL 8 MG IVP (10:17)
[2024-08-10] MEDS: DECITABINE IV (11:05)
[2024-08-10] MEDS: SODIUM CHLORIDE 0.9% IV (11:05)
[2024-08-10 12:27] VITALS: BP 132/61; PULSE 69; RESP 16; TEMP 36.1; O2SAT 97
[2024-08-11] MEDS: sodium chloride 0.9% 250 ML 75 ML IV (13:18)
[2024-08-11] MEDS: ondansetron 2 mg/ML SDV 2 mL 8 MG IVP (13:18)
[2024-08-11] MEDS: DECITABINE IV (13:39)
[2024-08-11] MEDS: SODIUM CHLORIDE 0.9% IV (13:39)
[2024-08-11 14:31] VITALS: BP 134/68; PULSE 66; RESP 18; TEMP 36.4; O2SAT 97
[2024-08-12 13:12] VITALS: BP 138/73; PULSE 67; RESP 18; TEMP 36.9; O2SAT 97
[2024-08-12] MEDS: sodium chloride 0.9% 250 ML 75 ML IV (13:35)
[2024-08-12] MEDS: ondansetron 2 mg/ML SDV 2 mL 8 MG IVP (13:40)
[2024-08-12] MEDS: DECITABINE IV (14:07)
[2024-08-12] MEDS: SODIUM CHLORIDE 0.9% IV (14:07)
[2024-08-13 10:33] VITALS: BP 144/68; PULSE 67; RESP 17; TEMP 36.4; O2SAT 97
[2024-08-13] MEDS: sodium chloride 0.9% 250 ML 75 ML IV (10:42)
[2024-08-13] MEDS: ondansetron 2 mg/ML SDV 2 mL 8 MG IVP (10:42)
[2024-08-13] MEDS: SODIUM CHLORIDE 0.9% IV (11:24)
[2024-08-13] MEDS: DECITABINE IV (11:24)
[2024-08-13 12:47] VITALS: BP 156/70; PULSE 60; RESP 17; TEMP 36.6; O2SAT 94
[2024-08-14 00:19] LABS: Methylmalonic Acid 275 nmol/L (69-390)
[2024-08-14 09:24] VITALS: BP 135/56; PULSE 62; RESP 17; TEMP 36.2; O2SAT 97
[2024-08-14] MEDS: sodium chloride 0.9% 250 ML 75 ML IV (09:51)
[2024-08-14] MEDS: ondansetron 2 mg/ML SDV 2 mL 8 MG IVP (09:51)
[2024-08-14] MEDS: DECITABINE IV (10:28)
[2024-08-14] MEDS: SODIUM CHLORIDE 0.9% IV (10:28)
[2024-08-14 11:53] VITALS: BP 157/68; PULSE 61; RESP 16; TEMP 36.1; O2SAT 98
[2024-08-19 13:16] LABS: Basophils % 0.6 %; Eosinophils % 1.2 %; Hematocrit 27.8 % (36-47); Lymphocytes % 27.8 %; Mean Corpuscular HGB Conc 31.3 g/dL (30-55); Mean Corpuscular Hemoglobin 32.7 pg (27-33); Mean Corpuscular Volume 104.5 fl (85-98); Mean Platelet Volume 9.4 fL (7.4-10.4); Monocytes # 0.2 10^3/uL (0.2-0.9); Monocytes % 5.3 %; Neutrophils % 64.2 %; Nucleated Red Blood Cells % 0 %; Platelet Count 74 10^3/cmm (157-399); Red Blood Count 2.66 10^6/uL (3.85-5.65); Red Cell Distribution Width 19.6 % (12.1-15.1); White Blood Count 3.42 10^3/uL (3.29-11.43)
[2024-08-19 13:30] LABS: Alanine Aminotransferase 11 U/L (0-33); Albumin Level 4.3 g/dL (3.5-5.2); Alkaline Phosphatase 91 U/L (35-105); Aspartate Amino Transferase 33 U/L (0-32); Blood Urea Nitrogen 11 mg/dL (8-23); Carbon Dioxide 25 mmol/L (22-29); Chloride 105 mmol/L (98-107); Creatinine Clr Calc Pharmacy 51.1739; Globulin 2.3 g/dL (1.3-4.6); Glucose 92 mg/dL (65-115); Osmolality Calculated 285 mOsm/kg (285-295); Sodium 138 mmol/L (136-145); Total Bilirubin 0.5 mg/dL (0.15-1.2); Total Protein 6.6 g/dL (6.6-8.7)
[2024-08-26 12:59] LABS: Basophils % 0.7 %; Eosinophils % 1.4 %; Hematocrit 29.1 % (36-47); Lymphocytes # 1.5 10^3/uL (0.8-4.8); Mean Corpuscular Hemoglobin 33.2 pg (27-33); Mean Corpuscular Volume 103.9 fl (85-98); Monocytes # 0.1 10^3/uL (0.2-0.9); Monocytes % 4.7 %; Neutrophils # 1.07 10^3/uL (1.8-7.7); Neutrophils % 38.8 %; Nucleated Red Blood Cells % 0 %; Red Cell Distribution Width 20.2 % (12.1-15.1); White Blood Count 2.76 10^3/uL (3.29-11.43)
[2024-08-26 13:15] LABS: Alanine Aminotransferase 12 U/L (0-33); Albumin Level 4.5 g/dL (3.5-5.2); Alkaline Phosphatase 93 U/L (35-105); Aspartate Amino Transferase 28 U/L (0-32); Blood Urea Nitrogen 9 mg/dL (8-23); Calcium 9.6 mg/dL (8.5-10.5); Carbon Dioxide 25 mmol/L (22-29); Chloride 103 mmol/L (98-107); Creatinine Clr Calc Pharmacy 40.9391; Globulin 2.6 g/dL (1.3-4.6); Glucose 128 mg/dL (65-115); Osmolality Calculated 290 mOsm/kg (285-295); Sodium 140 mmol/L (136-145); Total Bilirubin 0.6 mg/dL (0.15-1.2); Total Protein 7.1 g/dL (6.6-8.7)
[2024-08-26 13:16] LABS: Anion Gap 16.2 (5-19); Potassium 4.2 mmol/L (3.5-5.1)
[2024-08-26 13:38] LABS: Platelet Count 25 10^3/cmm (157-399); Slide Review Slide Review Perform
== END 2024-08-26 23:59 | disposition home or self-care (01) ==
PROVIDERS: PCP Internal Medicine; Visit Provider Internal Medicine
DX: Z53.9 Procedure and treatment not carried out, unspecified reason (principal); C92.00 Acute myeloblastic leukemia, not having achieved remission
CPT/HCPCS: 36591; 80053; 82607; 82728; 82746; 83010; 83090; 83540; 83550; 83615; 83921; 84100; 84550; 85025; 85045; 86140; 96375; 96413; 99213; J0894; J2405; J7050

== ENCOUNTER 2024-09-23 13:45 | Oncology outpatient (recurring) (ONCR) | payer OTHER, SELFPAY ==
[2024-09-02 13:00] LABS: Basophils % 0.6 %; Eosinophils % 2.3 %; Hematocrit 28.5 % (36-47); Lymphocytes # 1.4 10^3/uL (0.8-4.8); Mean Corpuscular HGB Conc 31.2 g/dL (30-55); Mean Corpuscular Hemoglobin 33.5 pg (27-33); Mean Corpuscular Volume 107.1 fl (85-98); Mean Platelet Volume 10.6 fL (7.4-10.4); Monocytes % 1.7 %; Neutrophils % 12.8 %; Nucleated Red Blood Cells % 1.2 %; Platelet Count 101 10^3/cmm (157-399); Red Blood Count 2.66 10^6/uL (3.85-5.65); Red Cell Distribution Width 21.5 % (12.1-15.1); White Blood Count 1.72 10^3/uL (3.29-11.43)
[2024-09-02 14:13] LABS: Slide Review Slide Review Perform
[2024-09-02 14:14] LABS: Neutrophils # 0.22 10^3/uL (1.8-7.7)
--- NOTE | 2024-09-02 16:20 | PC.NURSE ---
Patient called requesting that Dr Francisco review her labs and let her know if she needed to start Levoquin due to low ANC. Dr Francisco was given labs to review, he ordered Levoquin 500mg p.o. daily. This information was relayed to the patient with a call to her cell phone. Patient verbalized understanding and will call to clarify the length of treatment with Doris Cordova RN tomorrow morning.
[2024-09-08 16:29] LABS: Basophils % 0.6 %; Eosinophils % 2.3 %; Hematocrit 29.2 % (36-47); Lymphocytes # 1.3 10^3/uL (0.8-4.8); Mean Corpuscular HGB Conc 30.8 g/dL (30-55); Mean Corpuscular Hemoglobin 33.8 pg (27-33); Mean Corpuscular Volume 109.8 fl (85-98); Mean Platelet Volume 10.6 fL (7.4-10.4); Monocytes # 0.2 10^3/uL (0.2-0.9); Monocytes % 9.2 %; Neutrophils % 14.9 %; Nucleated Red Blood Cells % 0 %; Platelet Count 188 10^3/cmm (157-399); Red Blood Count 2.66 10^6/uL (3.85-5.65); Red Cell Distribution Width 20.1 % (12.1-15.1); White Blood Count 1.74 10^3/uL (3.29-11.43)
[2024-09-08 16:39] LABS: Neutrophils # 0.26 10^3/uL (1.8-7.7)
[2024-09-08 16:54] LABS: Alanine Aminotransferase 9 U/L (0-33); Alkaline Phosphatase 61 U/L (35-105); Anion Gap 15.1 (5-19); Aspartate Amino Transferase 16 U/L (0-32); Blood Urea Nitrogen 11 mg/dL (8-23); Carbon Dioxide 25 mmol/L (22-29); Chloride 103 mmol/L (98-107); Globulin 2.2 g/dL (1.3-4.6); Glucose 79 mg/dL (65-115); Osmolality Calculated 286 mOsm/kg (285-295); Potassium 4.1 mmol/L (3.5-5.1); Sodium 139 mmol/L (136-145); Total Bilirubin 0.4 mg/dL (0.15-1.2); Total Protein 6.2 g/dL (6.6-8.7)
[2024-09-16 13:45] LABS: Basophils % 0.4 %; Eosinophils % 0.8 %; Hematocrit 29.2 % (36-47); Lymphocytes % 38.7 %; Mean Corpuscular HGB Conc 30.1 g/dL (30-55); Mean Corpuscular Hemoglobin 32.8 pg (27-33); Mean Platelet Volume 9.9 fL (7.4-10.4); Monocytes # 0.5 10^3/uL (0.2-0.9); Monocytes % 17.6 %; Neutrophils % 42.1 %; Nucleated Red Blood Cells % 0 %; Platelet Count 165 10^3/cmm (157-399); Red Blood Count 2.68 10^6/uL (3.85-5.65); Red Cell Distribution Width 18.7 % (12.1-15.1); White Blood Count 2.61 10^3/uL (3.29-11.43)
[2024-09-16 14:02] LABS: Alanine Aminotransferase 9 U/L (0-33); Albumin Level 3.9 g/dL (3.5-5.2); Alkaline Phosphatase 69 U/L (35-105); Anion Gap 15.8 (5-19); Aspartate Amino Transferase 21 U/L (0-32); Blood Urea Nitrogen 13 mg/dL (8-23); Calcium 8.8 mg/dL (8.5-10.5); Carbon Dioxide 24 mmol/L (22-29); Chloride 105 mmol/L (98-107); Globulin 2.6 g/dL (1.3-4.6); Glucose 155 mg/dL (65-115); Osmolality Calculated 295 mOsm/kg (285-295); Potassium 3.8 mmol/L (3.5-5.1); Sodium 141 mmol/L (136-145); Total Bilirubin 0.5 mg/dL (0.15-1.2); Total Protein 6.5 g/dL (6.6-8.7)
[2024-09-23 14:18] LABS: Eosinophils % 0.3 %; Hematocrit 30.1 % (36-47); Lymphocytes # 1.3 10^3/uL (0.8-4.8); Lymphocytes % 35.6 %; Mean Corpuscular HGB Conc 31.9 g/dL (30-55); Mean Corpuscular Hemoglobin 34.3 pg (27-33); Mean Corpuscular Volume 107.5 fl (85-98); Mean Platelet Volume 10.9 fL (7.4-10.4); Monocytes # 0.8 10^3/uL (0.2-0.9); Neutrophils # 1.55 10^3/uL (1.8-7.7); Neutrophils % 42.8 %; Nucleated Red Blood Cells % 0 %; Platelet Count 79 10^3/cmm (157-399); Red Cell Distribution Width 18.6 % (12.1-15.1); White Blood Count 3.62 10^3/uL (3.29-11.43)
[2024-09-23 14:44] LABS: Alanine Aminotransferase 10 U/L (0-33); Albumin Level 4.3 g/dL (3.5-5.2); Alkaline Phosphatase 84 U/L (35-105); Aspartate Amino Transferase 28 U/L (0-32); Blood Urea Nitrogen 13 mg/dL (8-23); Calcium 9.3 mg/dL (8.5-10.5); Carbon Dioxide 23 mmol/L (22-29); Chloride 101 mmol/L (98-107); Globulin 2.1 g/dL (1.3-4.6); Glucose 83 mg/dL (65-115); Osmolality Calculated 283 mOsm/kg (285-295); Sodium 137 mmol/L (136-145); Total Bilirubin 0.4 mg/dL (0.15-1.2); Total Protein 6.4 g/dL (6.6-8.7)
[2024-09-23 14:46] LABS: Anion Gap 17.2 (5-19); Potassium 4.2 mmol/L (3.5-5.1)
== END 2024-09-26 23:59 | disposition home or self-care (01) ==
PROVIDERS: PCP Internal Medicine; Visit Provider Internal Medicine
DX: Z53.9 Procedure and treatment not carried out, unspecified reason (principal); C92.01 Acute myeloblastic leukemia, in remission; Z51.11 Encounter for antineoplastic chemotherapy; Z79.899 Other long term (current) drug therapy; C92.00 Acute myeloblastic leukemia, not having achieved remission; E78.5 Hyperlipidemia, unspecified; E53.8 Deficiency of other specified B group vitamins; D75.9 Disease of blood and blood-forming organs, unspecified; T45.1X5A Adverse effect of antineoplastic and immunosuppressive drugs, initial encounter
CPT/HCPCS: 36591; 80053; 85025

== ENCOUNTER 2024-10-26 13:00 | Oncology outpatient (recurring) (ONCR) | payer OTHER, SELFPAY ==
[2024-09-30 14:05] LABS: Basophils % 0.2 %; Eosinophils % 0.4 %; Hematocrit 32.3 % (36-47); Lymphocytes # 1.7 10^3/uL (0.8-4.8); Lymphocytes % 34.9 %; Mean Corpuscular HGB Conc 32.2 g/dL (30-55); Mean Corpuscular Hemoglobin 33.9 pg (27-33); Mean Corpuscular Volume 105.2 fl (85-98); Mean Platelet Volume 11.8 fL (7.4-10.4); Monocytes # 0.8 10^3/uL (0.2-0.9); Monocytes % 16.9 %; Neutrophils # 2.27 10^3/uL (1.8-7.7); Nucleated Red Blood Cells % 0 %; Platelet Count 113 10^3/cmm (157-399); Red Blood Count 3.07 10^6/uL (3.85-5.65); Red Cell Distribution Width 18.3 % (12.1-15.1); White Blood Count 4.84 10^3/uL (3.29-11.43)
[2024-09-30 16:34] LABS: Alanine Aminotransferase 20 U/L (0-33); Albumin Level 4.2 g/dL (3.5-5.2); Alkaline Phosphatase 95 U/L (35-105); Blood Urea Nitrogen 10 mg/dL (8-23); Calcium 9.5 mg/dL (8.5-10.5); Carbon Dioxide 28 mmol/L (22-29); Chloride 104 mmol/L (98-107); Globulin 2.9 g/dL (1.3-4.6); Sodium 144 mmol/L (136-145); Total Bilirubin 0.4 mg/dL (0.15-1.2); Total Protein 7.1 g/dL (6.6-8.7)
[2024-09-30 16:47] LABS: Anion Gap 15.8 (5-19); Aspartate Amino Transferase 37 U/L (0-32); Glucose 108 mg/dL (65-115); Osmolality Calculated 298 mOsm/kg (285-295); Potassium 3.8 mmol/L (3.5-5.1)
[2024-10-07 10:30] LABS: Basophils % 0.4 %; Eosinophils % 0.6 %; Hematocrit 32.2 % (36-47); Lymphocytes # 1.2 10^3/uL (0.8-4.8); Lymphocytes % 25.9 %; Mean Corpuscular HGB Conc 31.7 g/dL (30-55); Mean Corpuscular Hemoglobin 33.3 pg (27-33); Mean Corpuscular Volume 105.2 fl (85-98); Mean Platelet Volume 9.7 fL (7.4-10.4); Monocytes # 0.8 10^3/uL (0.2-0.9); Monocytes % 16.5 %; Neutrophils # 2.63 10^3/uL (1.8-7.7); Neutrophils % 55.5 %; Nucleated Red Blood Cells % 0 %; Platelet Count 108 10^3/cmm (157-399); Red Blood Count 3.06 10^6/uL (3.85-5.65); Red Cell Distribution Width 17.7 % (12.1-15.1); White Blood Count 4.74 10^3/uL (3.29-11.43)
[2024-10-07 10:49] LABS: Alanine Aminotransferase 14 U/L (0-33); Albumin Level 4.2 g/dL (3.5-5.2); Alkaline Phosphatase 90 U/L (35-105); Aspartate Amino Transferase 27 U/L (0-32); Blood Urea Nitrogen 12 mg/dL (8-23); Calcium 9.3 mg/dL (8.5-10.5); Carbon Dioxide 24 mmol/L (22-29); Chloride 104 mmol/L (98-107); Creatinine Clr Calc Pharmacy 50.9916; Globulin 1.5 g/dL (1.3-4.6); Glucose 92 mg/dL (65-115); Osmolality Calculated 289 mOsm/kg (285-295); Sodium 140 mmol/L (136-145); Total Bilirubin 0.4 mg/dL (0.15-1.2); Total Protein 5.7 g/dL (6.6-8.7)
[2024-10-07 10:50] LABS: Anion Gap 16.1 (5-19); Potassium 4.1 mmol/L (3.5-5.1)
[2024-10-07 14:09] LABS: 25 Hydroxy Vitamin D 22 ng/mL (30-100); Homocysteine 10.89 umol/l (0-15); Vitamin B12 365 pg/mL (232-1245)
[2024-10-07 14:55] LABS: Folate Level > 20.0 ng/mL (4.8-37.3)
[2024-10-11 05:54] LABS: Methylmalonic Acid 221 nmol/L (69-390)
[2024-10-14 12:00] LABS: Basophils % 0.2 %; Eosinophils # 0.1 10^3/uL (0.0-0.8); Eosinophils % 1.3 %; Hematocrit 32.8 % (36-47); Lymphocytes # 1.6 10^3/uL (0.8-4.8); Mean Corpuscular HGB Conc 31.4 g/dL (30-55); Mean Corpuscular Hemoglobin 32.7 pg (27-33); Mean Corpuscular Volume 104.1 fl (85-98); Mean Platelet Volume 10.9 fL (7.4-10.4); Monocytes # 1.1 10^3/uL (0.2-0.9); Monocytes % 16.9 %; Neutrophils # 3.41 10^3/uL (1.8-7.7); Neutrophils % 54.8 %; Nucleated Red Blood Cells % 0 %; Platelet Count 119 10^3/cmm (157-399); Red Blood Count 3.15 10^6/uL (3.85-5.65); Red Cell Distribution Width 17.5 % (12.1-15.1); White Blood Count 6.21 10^3/uL (3.29-11.43)
[2024-10-14 12:21] LABS: Alanine Aminotransferase 18 U/L (0-33); Albumin Level 4.2 g/dL (3.5-5.2); Alkaline Phosphatase 87 U/L (35-105); Blood Urea Nitrogen 11 mg/dL (8-23); Calcium 8.9 mg/dL (8.5-10.5); Carbon Dioxide 22 mmol/L (22-29); Chloride 104 mmol/L (98-107); Creatinine Clr Calc Pharmacy 50.9916; Globulin 2.5 g/dL (1.3-4.6); Glucose 96 mg/dL (65-115); Homocysteine 11.97 umol/l (0-15); Osmolality Calculated 285 mOsm/kg (285-295); Sodium 138 mmol/L (136-145); Total Bilirubin 0.3 mg/dL (0.15-1.2); Total Protein 6.7 g/dL (6.6-8.7)
[2024-10-14 12:37] LABS: Vitamin B12 345 pg/mL (232-1245)
[2024-10-14 12:48] LABS: Anion Gap 16.6 (5-19); Aspartate Amino Transferase 29 U/L (0-32); Folate Level > 20.0 ng/mL (4.8-37.3); Potassium 4.6 mmol/L (3.5-5.1)
[2024-10-19 02:00] LABS: Methylmalonic Acid 165 nmol/L (69-390)
[2024-10-20] MEDS: sodium chloride 0.9% 250 ML 25 ML IV (11:44)
[2024-10-20] MEDS: ondansetron 2 mg/ML SDV 2 mL 8 MG IVP (11:44)
[2024-10-20 12:04] VITALS: BP 172/71
[2024-10-20] MEDS: SODIUM CHLORIDE 0.9% IV (12:09)
[2024-10-20] MEDS: DECITABINE IV (12:09)
[2024-10-20 14:08] VITALS: BP 146/71; PULSE 64; TEMP 36.6; O2SAT 97
[2024-10-21 13:52] VITALS: BP 152/68; PULSE 60; RESP 15; TEMP 36.8; O2SAT 97
[2024-10-21] MEDS: sodium chloride 0.9% 250 ML 75 ML IV (14:07)
[2024-10-21] MEDS: ondansetron 2 mg/ML SDV 2 mL 8 MG IVP (14:07)
[2024-10-21] MEDS: SODIUM CHLORIDE 0.9% IV (14:44)
[2024-10-21] MEDS: DECITABINE IV (14:44)
[2024-10-21 15:49] VITALS: BP 159/71; PULSE 61; RESP 18; TEMP 36.4; O2SAT 98
[2024-10-22] MEDS: sodium chloride 0.9% 250 ML 75 ML IV (13:11)
[2024-10-22] MEDS: ondansetron 2 mg/ML SDV 2 mL 8 MG IVP (13:12)
[2024-10-22] MEDS: SODIUM CHLORIDE 0.9% IV (13:43)
[2024-10-22] MEDS: DECITABINE IV (13:43)
[2024-10-22 14:52] VITALS: BP 151/67; TEMP 36.6
[2024-10-23 09:41] VITALS: BP 163/71; PULSE 57; TEMP 36.4; O2SAT 98
[2024-10-23] MEDS: sodium chloride 0.9% 250 ML 75 ML IV (09:50)
[2024-10-23] MEDS: ondansetron 2 mg/ML SDV 2 mL 8 MG IVP (09:51)
[2024-10-23] MEDS: SODIUM CHLORIDE 0.9% IV (10:29)
[2024-10-23] MEDS: DECITABINE IV (10:29)
[2024-10-23 11:54] VITALS: BP 148/74; PULSE 61; RESP 16; TEMP 36.5; O2SAT 96
[2024-10-26] MEDS: sodium chloride 0.9% 250 ML 75 ML IV (13:41)
[2024-10-26] MEDS: ondansetron 2 mg/ML SDV 2 mL 8 MG IVP (13:41)
[2024-10-26] MEDS: SODIUM CHLORIDE 0.9% IV (13:55)
[2024-10-26] MEDS: DECITABINE IV (13:55)
[2024-10-26 15:04] VITALS: BP 162/73; PULSE 63; RESP 18; TEMP 36.3; O2SAT 93
== END 2024-10-26 23:59 | disposition home or self-care (01) ==
PROVIDERS: PCP Internal Medicine; Visit Provider Internal Medicine
DX: Z53.9 Procedure and treatment not carried out, unspecified reason; Z51.11 Encounter for antineoplastic chemotherapy; C92.00 Acute myeloblastic leukemia, not having achieved remission; Z79.899 Other long term (current) drug therapy
CPT/HCPCS: 36415; 36591; 80053; 82306; 82607; 82746; 83090; 83921; 85025; 96375; 96413; 99213; J0894; J2405; J7050

== ENCOUNTER 2024-11-25 13:30 | Oncology outpatient (recurring) (ONCR) | payer OTHER, SELFPAY ==
[2024-11-05 13:20] VITALS: BP 124/76; PULSE 64; RESP 18; TEMP 36.6; O2SAT 98
[2024-11-05 13:58] LABS: Hematocrit 30.8 % (36-47); Hemoglobin 10.00 g/dL (11.27-16.99); Mean Corpuscular HGB Conc 32.5 g/dL (30-55); Mean Corpuscular Hemoglobin 33.3 pg (27-33); Mean Corpuscular Volume 102.7 fl (85-98); Nucleated Red Blood Cells % 0 %; Platelet Count 35 10^3/cmm (157-399); Red Blood Count 3.00 10^6/uL (3.85-5.65); White Blood Count 3.49 10^3/uL (3.29-11.43)
[2024-11-05 14:15] LABS: Alanine Aminotransferase 12 U/L (0-33); Albumin Level 4.2 g/dL (3.5-5.2); Alkaline Phosphatase 78 U/L (35-105); Blood Urea Nitrogen 16 mg/dL (8-23); Calcium 10.0 mg/dL (8.5-10.5); Carbon Dioxide 25 mmol/L (22-29); Chloride 102 mmol/L (98-107); Globulin 2.4 g/dL (1.3-4.6); Glucose 76 mg/dL (65-115); Osmolality Calculated 286 mOsm/kg (285-295); Sodium 138 mmol/L (136-145); Total Protein 6.6 g/dL (6.6-8.7)
[2024-11-05 14:37] LABS: Anion Gap 15.0 (5-19); Aspartate Amino Transferase 28 U/L (0-32); Potassium 4.0 mmol/L (3.5-5.1)
[2024-11-18 13:16] LABS: Hematocrit 32.6 % (36-47); Hemoglobin 10.40 g/dL (11.27-16.99); Mean Corpuscular HGB Conc 31.9 g/dL (30-55); Mean Corpuscular Hemoglobin 32.5 pg (27-33); Mean Corpuscular Volume 101.9 fl (85-98); Nucleated Red Blood Cells % 0 %; Platelet Count 129 10^3/cmm (157-399); Red Blood Count 3.20 10^6/uL (3.85-5.65); White Blood Count 1.03 10^3/uL (3.29-11.43)
[2024-11-18 13:31] LABS: Alanine Aminotransferase 12 U/L (0-33); Albumin Level 4.3 g/dL (3.5-5.2); Alkaline Phosphatase 84 U/L (35-105); Aspartate Amino Transferase 24 U/L (0-32); Blood Urea Nitrogen 10 mg/dL (8-23); Calcium 9.3 mg/dL (8.5-10.5); Carbon Dioxide 25 mmol/L (22-29); Chloride 102 mmol/L (98-107); Creatinine Clr Calc Pharmacy 50.6276; Globulin 2.7 g/dL (1.3-4.6); Glucose 93 mg/dL (65-115); Magnesium 2.2 mg/dL (1.7-2.3); Osmolality Calculated 285 mOsm/kg (285-295); Sodium 138 mmol/L (136-145); Total Protein 7.0 g/dL (6.6-8.7)
[2024-11-18 13:51] LABS: Anion Gap 15.1 (5-19); Potassium 4.1 mmol/L (3.5-5.1)
[2024-11-18 13:58] LABS: Slide Review Slide Review Perform
--- NOTE | 2024-11-18 14:12 | PC.NURSE ---
Pt returned phone call. Results reviewed with pt. Pt ANC 0.04. Per Dr. Francisco pt is to start taking Levaquin as instructed. Neutropenic precautions discussed with pt/ Pt voiced understanding/lc
[2024-11-25 13:40] LABS: Hematocrit 28.6 % (36-47); Hemoglobin 9.20 g/dL (11.27-16.99); Mean Corpuscular HGB Conc 32.2 g/dL (30-55); Mean Corpuscular Hemoglobin 32.9 pg (27-33); Mean Corpuscular Volume 102.1 fl (85-98); Nucleated Red Blood Cells % 0 %; Platelet Count 66 10^3/cmm (157-399); Red Blood Count 2.80 10^6/uL (3.85-5.65); White Blood Count 1.67 10^3/uL (3.29-11.43)
[2024-11-25 14:09] LABS: Alanine Aminotransferase 8 U/L (0-33); Albumin Level 4.0 g/dL (3.5-5.2); Alkaline Phosphatase 77 U/L (35-105); Anion Gap 14.5 (5-19); Aspartate Amino Transferase 16 U/L (0-32); Blood Urea Nitrogen 17 mg/dL (8-23); Calcium 8.9 mg/dL (8.5-10.5); Carbon Dioxide 27 mmol/L (22-29); Chloride 105 mmol/L (98-107); Creatinine Clr Calc Pharmacy 40.5021; Globulin 2.1 g/dL (1.3-4.6); Glucose 134 mg/dL (65-115); Magnesium 2.0 mg/dL (1.7-2.3); Osmolality Calculated 298 mOsm/kg (285-295); Potassium 4.5 mmol/L (3.5-5.1); Sodium 142 mmol/L (136-145); Total Protein 6.1 g/dL (6.6-8.7)
== END 2024-11-26 23:59 | disposition home or self-care (01) ==
PROVIDERS: PCP Internal Medicine; Visit Provider Internal Medicine
DX: Z53.9 Procedure and treatment not carried out, unspecified reason; C92.01 Acute myeloblastic leukemia, in remission
CPT/HCPCS: 36591; 80053; 83615; 83735; 85025; 86850; 86900; 99213

== ENCOUNTER 2024-12-22 13:00 | Oncology outpatient (recurring) (ONCR) | payer OTHER, SELFPAY ==
[2024-12-02 14:57] LABS: Hematocrit 29.7 % (36-47); Hemoglobin 9.50 g/dL (11.27-16.99); Mean Corpuscular HGB Conc 32.0 g/dL (30-55); Mean Corpuscular Hemoglobin 32.3 pg (27-33); Mean Corpuscular Volume 101.0 fl (85-98); Nucleated Red Blood Cells % 0 %; Platelet Count 64 10^3/cmm (157-399); Red Blood Count 2.94 10^6/uL (3.85-5.65); White Blood Count 2.72 10^3/uL (3.29-11.43)
[2024-12-02 15:14] LABS: Alanine Aminotransferase 10 U/L (0-33); Albumin Level 4.2 g/dL (3.5-5.2); Alkaline Phosphatase 82 U/L (35-105); Aspartate Amino Transferase 26 U/L (0-32); Blood Urea Nitrogen 14 mg/dL (8-23); Calcium 9.3 mg/dL (8.5-10.5); Carbon Dioxide 25 mmol/L (22-29); Chloride 103 mmol/L (98-107); Globulin 2.5 g/dL (1.3-4.6); Glucose 145 mg/dL (65-115); Osmolality Calculated 289 mOsm/kg (285-295); Sodium 138 mmol/L (136-145); Total Protein 6.7 g/dL (6.6-8.7)
[2024-12-02 15:15] LABS: Anion Gap 13.7 (5-19); Potassium 3.7 mmol/L (3.5-5.1)
[2024-12-09 13:20] LABS: Hematocrit 31.3 % (36-47); Hemoglobin 10.30 g/dL (11.27-16.99); Mean Corpuscular HGB Conc 32.9 g/dL (30-55); Mean Corpuscular Hemoglobin 34.2 pg (27-33); Mean Corpuscular Volume 104.0 fl (85-98); Nucleated Red Blood Cells % 0 %; Platelet Count 119 10^3/cmm (157-399); Red Blood Count 3.01 10^6/uL (3.85-5.65); White Blood Count 3.54 10^3/uL (3.29-11.43)
[2024-12-09 13:36] LABS: Alanine Aminotransferase 14 U/L (0-33); Albumin Level 4.2 g/dL (3.5-5.2); Alkaline Phosphatase 81 U/L (35-105); Aspartate Amino Transferase 29 U/L (0-32); Blood Urea Nitrogen 15 mg/dL (8-23); Calcium 9.1 mg/dL (8.5-10.5); Carbon Dioxide 25 mmol/L (22-29); Chloride 103 mmol/L (98-107); Globulin 2.2 g/dL (1.3-4.6); Glucose 106 mg/dL (65-115); Osmolality Calculated 287 mOsm/kg (285-295); Sodium 138 mmol/L (136-145); Total Protein 6.4 g/dL (6.6-8.7)
[2024-12-09 13:41] LABS: Anion Gap 14.1 (5-19); Potassium 4.1 mmol/L (3.5-5.1)
[2024-12-16 09:34] LABS: Hematocrit 31.5 % (36-47); Hemoglobin 10.10 g/dL (11.27-16.99); Mean Corpuscular HGB Conc 32.1 g/dL (30-55); Mean Corpuscular Hemoglobin 32.9 pg (27-33); Mean Corpuscular Volume 102.6 fl (85-98); Nucleated Red Blood Cells % 0 %; Platelet Count 131 10^3/cmm (157-399); Red Blood Count 3.07 10^6/uL (3.85-5.65); White Blood Count 3.19 10^3/uL (3.29-11.43)
[2024-12-16 09:47] LABS: Alanine Aminotransferase 12 U/L (0-33); Albumin Level 4.2 g/dL (3.5-5.2); Alkaline Phosphatase 77 U/L (35-105); Blood Urea Nitrogen 16 mg/dL (8-23); Calcium 9.1 mg/dL (8.5-10.5); Carbon Dioxide 25 mmol/L (22-29); Chloride 105 mmol/L (98-107); Creatinine Clr Calc Pharmacy 50.4514; Ferritin 348 ng/mL (15-150); Globulin 2.4 g/dL (1.3-4.6); Glucose 101 mg/dL (65-115); Iron 71 ug/dL (37-145); Osmolality Calculated 289 mOsm/kg (285-295); Sodium 139 mmol/L (136-145); Total Protein 6.6 g/dL (6.6-8.7)
[2024-12-16 09:55] LABS: Anion Gap 13.1 (5-19); Aspartate Amino Transferase 27 U/L (0-32); Potassium 4.1 mmol/L (3.5-5.1); Total Iron Binding Capacity 294 mcg/dl; Unsaturated Iron Binding 223 ug/dL (112-347)
[2024-12-16 10:03] LABS: Vitamin B12 277 pg/mL (232-1245)
[2024-12-16] MEDS: ondansetron 2 mg/ML SDV 2 mL 8 MG IVP (11:03)
[2024-12-16] MEDS: SODIUM CHLORIDE 0.9% IV (11:32)
[2024-12-16] MEDS: DECITABINE IV (11:32)
[2024-12-16 12:49] VITALS: BP 131/59; PULSE 65; RESP 18; TEMP 36.6; O2SAT 99
[2024-12-17] MEDS: ondansetron 2 mg/ML SDV 2 mL 8 MG IVP (13:52)
[2024-12-17] MEDS: SODIUM CHLORIDE 0.9% IV (14:23)
[2024-12-17] MEDS: DECITABINE IV (14:23)
[2024-12-17 15:50] VITALS: BP 161/70; PULSE 65; RESP 16; TEMP 36.4; O2SAT 96
[2024-12-18] MEDS: ondansetron 2 mg/ML SDV 2 mL 8 MG IVP (09:57)
[2024-12-18] MEDS: SODIUM CHLORIDE 0.9% IV (10:53)
[2024-12-18] MEDS: DECITABINE IV (10:53)
[2024-12-18 12:31] VITALS: BP 163/71; PULSE 60; RESP 16; TEMP 36.3; O2SAT 99
[2024-12-21] MEDS: ondansetron 2 mg/ML SDV 2 mL 8 MG IVP (13:21)
[2024-12-21] MEDS: DECITABINE IV (14:18)
[2024-12-21] MEDS: SODIUM CHLORIDE 0.9% IV (14:18)
[2024-12-21 15:31] VITALS: BP 147/68; PULSE 64; RESP 18; O2SAT 97
[2024-12-22] MEDS: ondansetron 2 mg/ML SDV 2 mL 8 MG IVP (13:46)
[2024-12-22] MEDS: SODIUM CHLORIDE 0.9% IV (14:20)
[2024-12-22] MEDS: DECITABINE IV (14:20)
[2024-12-22 15:37] VITALS: BP 152/69; PULSE 69; RESP 16; TEMP 36.3; O2SAT 96
== END 2024-12-27 23:59 | disposition home or self-care (01) ==
PROVIDERS: Internal Medicine; PCP Internal Medicine; Visit Provider Internal Medicine Medical Oncology
DX: Z51.11 Encounter for antineoplastic chemotherapy; C92.01 Acute myeloblastic leukemia, in remission; Z79.899 Other long term (current) drug therapy; Z53.9 Procedure and treatment not carried out, unspecified reason
CPT/HCPCS: 36591; 80053; 82607; 82728; 82746; 83010; 83090; 83540; 83550; 83615; 83921; 85025; 85045; 86850; 86900; 96375; 96413; 99213; J0894; J2405; J7050

== ENCOUNTER 2025-01-20 13:15 | Oncology outpatient (recurring) (ONCR) | payer OTHER, SELFPAY ==
[2024-12-30 13:05] LABS: Hematocrit 29.2 % (36-47); Hemoglobin 9.50 g/dL (11.27-16.99); Mean Corpuscular HGB Conc 32.5 g/dL (30-55); Mean Corpuscular Hemoglobin 33.1 pg (27-33); Mean Corpuscular Volume 101.7 fl (85-98); Nucleated Red Blood Cells % 0 %; Red Blood Count 2.87 10^6/uL (3.85-5.65); White Blood Count 2.16 10^3/uL (3.29-11.43)
[2024-12-30 13:37] LABS: Alanine Aminotransferase 14 U/L (0-33); Albumin Level 4.5 g/dL (3.5-5.2); Alkaline Phosphatase 79 U/L (35-105); Aspartate Amino Transferase 26 U/L (0-32); Blood Urea Nitrogen 22 mg/dL (8-23); Calcium 9.5 mg/dL (8.5-10.5); Carbon Dioxide 25 mmol/L (22-29); Chloride 103 mmol/L (98-107); Creatinine Clr Calc Pharmacy 50.4454; Globulin 2.5 g/dL (1.3-4.6); Glucose 150 mg/dL (65-115); Osmolality Calculated 298 mOsm/kg (285-295); Sodium 141 mmol/L (136-145); Total Protein 7.0 g/dL (6.6-8.7)
[2024-12-30 13:38] LABS: Platelet Count 24 10^3/cmm (157-399); Slide Review Slide Review Perform
[2024-12-30 13:40] LABS: Anion Gap 17.2 (5-19); Potassium 4.2 mmol/L (3.5-5.1)
--- NOTE | 2024-12-30 14:45 | XR_ITS ---
WS: [id number] Acute abdomen series, 12/30/2024 Clinical Data: abdominal pain and constipation Comparison: None. Findings: In the chest there are no nodules, masses or effusions. The heart is normal. The pulmonary vascularity is not increased. The diaphragms are flattened. The aortic arch and descending thoracic aorta show tortuosity. There is a left infusion catheter ending at the caval atrial junction. No free air is seen beneath the diaphragms. No abnormal intra-abdominal masses or calcifications are seen. There is a moderate amount of fecal material in the colon. XR/XR acute abdomen series 50304 Impression: 1 atherosclerosis. 2. Moderate amount of fecal material in the colon.
[2025-01-05 12:58] LABS: Hematocrit 28.7 % (36-47); Hemoglobin 9.20 g/dL (11.27-16.99); Mean Corpuscular HGB Conc 32.1 g/dL (30-55); Mean Corpuscular Hemoglobin 33.0 pg (27-33); Mean Corpuscular Volume 102.9 fl (85-98); Nucleated Red Blood Cells % 0 %; Red Blood Count 2.79 10^6/uL (3.85-5.65); White Blood Count 1.47 10^3/uL (3.29-11.43)
[2025-01-05 13:16] LABS: Alanine Aminotransferase 15 U/L (0-33); Albumin Level 4.3 g/dL (3.5-5.2); Alkaline Phosphatase 76 U/L (35-105); Aspartate Amino Transferase 34 U/L (0-32); Blood Urea Nitrogen 12 mg/dL (8-23); Calcium 9.2 mg/dL (8.5-10.5); Carbon Dioxide 26 mmol/L (22-29); Chloride 107 mmol/L (98-107); Creatinine Clr Calc Pharmacy 50.4454; Globulin 2.3 g/dL (1.3-4.6); Glucose 139 mg/dL (65-115); Osmolality Calculated 294 mOsm/kg (285-295); Sodium 141 mmol/L (136-145); Total Protein 6.6 g/dL (6.6-8.7)
[2025-01-05 13:19] LABS: Anion Gap 11.7 (5-19); Potassium 3.7 mmol/L (3.5-5.1)
[2025-01-05 13:27] LABS: Slide Review Slide Review Perform
[2025-01-05 13:28] LABS: Platelet Count 23 10^3/cmm (157-399)
[2025-01-13 12:20] LABS: Hematocrit 28.2 % (36-47); Hemoglobin 9.00 g/dL (11.27-16.99); Mean Corpuscular HGB Conc 31.9 g/dL (30-55); Mean Corpuscular Hemoglobin 33.5 pg (27-33); Mean Corpuscular Volume 104.8 fl (85-98); Nucleated Red Blood Cells % 0 %; Platelet Count 151 10^3/cmm (157-399); Red Blood Count 2.69 10^6/uL (3.85-5.65); White Blood Count 1.06 10^3/uL (3.29-11.43)
[2025-01-13 12:40] LABS: Slide Review Slide Review Perform
[2025-01-13 12:41] LABS: Alanine Aminotransferase 11 U/L (0-33); Albumin Level 4.2 g/dL (3.5-5.2); Alkaline Phosphatase 72 U/L (35-105); Anion Gap 14.2 (5-19); Aspartate Amino Transferase 19 U/L (0-32); Blood Urea Nitrogen 12 mg/dL (8-23); Calcium 9.0 mg/dL (8.5-10.5); Carbon Dioxide 25 mmol/L (22-29); Chloride 103 mmol/L (98-107); Creatinine Clr Calc Pharmacy 50.6276; Globulin 2.3 g/dL (1.3-4.6); Glucose 95 mg/dL (65-115); Osmolality Calculated 286 mOsm/kg (285-295); Potassium 4.2 mmol/L (3.5-5.1); Sodium 138 mmol/L (136-145); Total Protein 6.5 g/dL (6.6-8.7)
[2025-01-20 13:50] LABS: Hematocrit 27.9 % (36-47); Hemoglobin 9.00 g/dL (11.27-16.99); Mean Corpuscular HGB Conc 32.3 g/dL (30-55); Mean Corpuscular Hemoglobin 34.1 pg (27-33); Mean Corpuscular Volume 105.7 fl (85-98); Nucleated Red Blood Cells % 0 %; Platelet Count 136 10^3/cmm (157-399); Red Blood Count 2.64 10^6/uL (3.85-5.65); White Blood Count 2.15 10^3/uL (3.29-11.43)
[2025-01-20 14:06] LABS: Slide Review Slide Review Perform
[2025-01-20 14:14] LABS: Alanine Aminotransferase 9 U/L (0-33); Albumin Level 4.3 g/dL (3.5-5.2); Alkaline Phosphatase 74 U/L (35-105); Anion Gap 12.1 (5-19); Aspartate Amino Transferase 20 U/L (0-32); Blood Urea Nitrogen 17 mg/dL (8-23); Calcium 9.4 mg/dL (8.5-10.5); Carbon Dioxide 26 mmol/L (22-29); Chloride 106 mmol/L (98-107); Creatinine Clr Calc Pharmacy 50.1383; Globulin 2.5 g/dL (1.3-4.6); Glucose 89 mg/dL (65-115); Osmolality Calculated 291 mOsm/kg (285-295); Potassium 4.1 mmol/L (3.5-5.1); Sodium 140 mmol/L (136-145); Total Protein 6.8 g/dL (6.6-8.7)
[2025-01-20 16:27] LABS: Free T4 Free Thyroxine 1.01 ng/dL (0.82-1.77); Thyroid Stimulating Hormone 2.94 uIU/mL (0.27-4.20)
== END 2025-01-26 23:59 | disposition home or self-care (01) ==
PROVIDERS: Internal Medicine; Nurse Practitioner; PCP Internal Medicine; Visit Provider Internal Medicine Medical Oncology
DX: Z53.9 Procedure and treatment not carried out, unspecified reason; C92.01 Acute myeloblastic leukemia, in remission; L90.0 Lichen sclerosus et atrophicus; E03.9 Hypothyroidism, unspecified; E53.8 Deficiency of other specified B group vitamins; D70.1 Agranulocytosis secondary to cancer chemotherapy; T45.1X5A Adverse effect of antineoplastic and immunosuppressive drugs, initial encounter; Z79.899 Other long term (current) drug therapy; Z95.828 Presence of other vascular implants and grafts
CPT/HCPCS: 36591; 74022; 80053; 82306; 83615; 84439; 84443; 85025; 99214

== ENCOUNTER 2025-02-26 09:25 | Oncology outpatient (recurring) (ONCR) | payer OTHER, SELFPAY ==
[2025-01-27 14:33] LABS: Hematocrit 28.4 % (36-47); Hemoglobin 9.10 g/dL (11.27-16.99); Mean Corpuscular HGB Conc 32.0 g/dL (30-55); Mean Corpuscular Hemoglobin 34.0 pg (27-33); Mean Corpuscular Volume 106.0 fl (85-98); Nucleated Red Blood Cells % 0 %; Platelet Count 89 10^3/cmm (157-399); Red Blood Count 2.68 10^6/uL (3.85-5.65); White Blood Count 3.26 10^3/uL (3.29-11.43)
[2025-01-27 14:50] LABS: Aspartate Amino Transferase 23 U/L (0-32); Potassium 4.2 mmol/L (3.5-5.1)
[2025-01-27 15:05] LABS: Alanine Aminotransferase 10 U/L (0-33); Albumin Level 4.2 g/dL (3.5-5.2); Alkaline Phosphatase 76 U/L (35-105); Anion Gap 13.2 (5-19); Blood Urea Nitrogen 19 mg/dL (8-23); Calcium 9.2 mg/dL (8.5-10.5); Carbon Dioxide 26 mmol/L (22-29); Chloride 102 mmol/L (98-107); Creatinine Clr Calc Pharmacy 50.4454; Globulin 2.3 g/dL (1.3-4.6); Glucose 85 mg/dL (65-115); Osmolality Calculated 286 mOsm/kg (285-295); Sodium 137 mmol/L (136-145); Thyroid Stimulating Hormone 3.40 uIU/mL (0.27-4.20); Total Protein 6.5 g/dL (6.6-8.7)
[2025-01-27 15:06] LABS: Slide Review Slide Review Perform
[2025-02-02 14:26] LABS: Hematocrit 31.1 % (36-47); Hemoglobin 9.80 g/dL (11.27-16.99); Mean Corpuscular HGB Conc 31.5 g/dL (30-55); Mean Corpuscular Hemoglobin 34.4 pg (27-33); Mean Corpuscular Volume 109.1 fl (85-98); Nucleated Red Blood Cells % 0.3 %; Platelet Count 140 10^3/cmm (157-399); Red Blood Count 2.85 10^6/uL (3.85-5.65); White Blood Count 5.75 10^3/uL (3.29-11.43)
[2025-02-02 14:37] LABS: Alanine Aminotransferase 11 U/L (0-33); Albumin Level 4.4 g/dL (3.5-5.2); Alkaline Phosphatase 73 U/L (35-105); Aspartate Amino Transferase 20 U/L (0-32); Blood Urea Nitrogen 17 mg/dL (8-23); Calcium 9.7 mg/dL (8.5-10.5); Carbon Dioxide 22 mmol/L (22-29); Chloride 107 mmol/L (98-107); Creatinine Clr Calc Pharmacy 50.9916; Globulin 2.3 g/dL (1.3-4.6); Glucose 121 mg/dL (65-115); Osmolality Calculated 297 mOsm/kg (285-295); Sodium 142 mmol/L (136-145); Total Protein 6.7 g/dL (6.6-8.7)
[2025-02-02 14:39] LABS: Anion Gap 17.2 (5-19); Potassium 4.2 mmol/L (3.5-5.1)
[2025-02-22 11:39] LABS: Hematocrit 35.9 % (36-47); Hemoglobin 11.60 g/dL (11.27-16.99); Mean Corpuscular HGB Conc 32.3 g/dL (30-55); Mean Corpuscular Hemoglobin 34.6 pg (27-33); Mean Corpuscular Volume 107.2 fl (85-98); Nucleated Red Blood Cells % 0 %; Platelet Count 143 10^3/cmm (157-399); Red Blood Count 3.35 10^6/uL (3.85-5.65); White Blood Count 6.63 10^3/uL (3.29-11.43)
[2025-02-22 11:50] LABS: Alanine Aminotransferase 13 U/L (0-33); Albumin Level 4.6 g/dL (3.5-5.2); Alkaline Phosphatase 71 U/L (35-105); Blood Urea Nitrogen 15 mg/dL (8-23); Calcium 9.8 mg/dL (8.5-10.5); Carbon Dioxide 20 mmol/L (22-29); Chloride 102 mmol/L (98-107); Creatinine Clr Calc Pharmacy 50.9916; Globulin 2.5 g/dL (1.3-4.6); Glucose 103 mg/dL (65-115); Osmolality Calculated 283 mOsm/kg (285-295); Sodium 136 mmol/L (136-145); Total Protein 7.1 g/dL (6.6-8.7)
[2025-02-22 12:06] LABS: Anion Gap 18.7 (5-19); Aspartate Amino Transferase 28 U/L (0-32); Potassium 4.7 mmol/L (3.5-5.1)
[2025-02-22] MEDS: ondansetron 2 mg/ML SDV 2 mL 8 MG IVP (13:36)
[2025-02-22] MEDS: DECITABINE IV (13:49)
[2025-02-22] MEDS: SODIUM CHLORIDE 0.9% IV (13:49)
[2025-02-22 15:21] VITALS: BP 126/87; PULSE 68; RESP 18; TEMP 36.5; O2SAT 99
[2025-02-23] MEDS: ondansetron 2 mg/ML SDV 2 mL 8 MG IVP (13:52)
[2025-02-23] MEDS: DECITABINE IV (14:26)
[2025-02-23] MEDS: SODIUM CHLORIDE 0.9% IV (14:26)
[2025-02-23 15:51] VITALS: BP 122/69; PULSE 67; RESP 17; TEMP 36.6; O2SAT 95
[2025-02-24] MEDS: ondansetron 2 mg/ML SDV 2 mL 8 MG IVP (13:10)
[2025-02-24] MEDS: SODIUM CHLORIDE 0.9% IV (13:45)
[2025-02-24] MEDS: DECITABINE IV (13:45)
[2025-02-24 14:55] VITALS: BP 118/67; PULSE 73; RESP 16; TEMP 36.5; O2SAT 97
[2025-02-25] MEDS: ondansetron 2 mg/ML SDV 2 mL 8 MG IVP (12:51)
[2025-02-25] MEDS: DECITABINE IV (13:10)
[2025-02-25] MEDS: SODIUM CHLORIDE 0.9% IV (13:10)
[2025-02-25 14:20] VITALS: BP 125/68; PULSE 68; RESP 17; TEMP 36.1; O2SAT 98
[2025-02-26] MEDS: ondansetron 2 mg/ML SDV 2 mL 8 MG IVP (09:30)
[2025-02-26] MEDS: DECITABINE IV (10:17)
[2025-02-26] MEDS: SODIUM CHLORIDE 0.9% IV (10:17)
[2025-02-26 11:35] VITALS: BP 132/72; PULSE 64; RESP 16; TEMP 36.7; O2SAT 98
== END 2025-02-26 23:59 | disposition home or self-care (01) ==
PROVIDERS: Internal Medicine; PCP Internal Medicine; Visit Provider Internal Medicine
DX: Z51.11 Encounter for antineoplastic chemotherapy (principal); C92.00 Acute myeloblastic leukemia, not having achieved remission; Z79.899 Other long term (current) drug therapy
CPT/HCPCS: 36591; 80053; 82306; 83615; 84443; 85025; 96375; 96413; 99213; 99214; J0894; J2405; J7050

== ENCOUNTER 2025-03-16 11:31 | Oncology outpatient (recurring) (ONCR) | payer MEDICARE, MEDICAID, SELFPAY ==
[2025-03-02 12:27] LABS: Hematocrit 33.0 % (36-47); Hemoglobin 10.70 g/dL (11.27-16.99); Mean Corpuscular HGB Conc 32.4 g/dL (30-55); Mean Corpuscular Hemoglobin 34.1 pg (27-33); Mean Corpuscular Volume 105.1 fl (85-98); Nucleated Red Blood Cells % 0 %; Platelet Count 125 10^3/cmm (157-399); Red Blood Count 3.14 10^6/uL (3.85-5.65); White Blood Count 6.00 10^3/uL (3.29-11.43)
[2025-03-02 12:45] LABS: Alanine Aminotransferase 14 U/L (0-33); Albumin Level 4.5 g/dL (3.5-5.2); Alkaline Phosphatase 71 U/L (35-105); Aspartate Amino Transferase 24 U/L (0-32); Blood Urea Nitrogen 17 mg/dL (8-23); Calcium 9.2 mg/dL (8.5-10.5); Carbon Dioxide 20 mmol/L (22-29); Chloride 104 mmol/L (98-107); Globulin 2.4 g/dL (1.3-4.6); Glucose 97 mg/dL (65-115); Osmolality Calculated 281 mOsm/kg (285-295); Sodium 135 mmol/L (136-145); Total Protein 6.9 g/dL (6.6-8.7)
[2025-03-02 12:47] LABS: Anion Gap 15.3 (5-19); Potassium 4.3 mmol/L (3.5-5.1)
[2025-03-09 13:17] LABS: Hematocrit 30.9 % (36-47); Hemoglobin 10.00 g/dL (11.27-16.99); Mean Corpuscular HGB Conc 32.4 g/dL (30-55); Mean Corpuscular Hemoglobin 34.4 pg (27-33); Mean Corpuscular Volume 106.2 fl (85-98); Nucleated Red Blood Cells % 0 %; Platelet Count 42 10^3/cmm (157-399); Red Blood Count 2.91 10^6/uL (3.85-5.65); White Blood Count 2.86 10^3/uL (3.29-11.43)
[2025-03-09 14:04] LABS: Slide Review Slide Review Perform
[2025-03-09 14:07] LABS: Alanine Aminotransferase 13 U/L (0-33); Albumin Level 4.4 g/dL (3.5-5.2); Alkaline Phosphatase 65 U/L (35-105); Blood Urea Nitrogen 11 mg/dL (8-23); Calcium 9.3 mg/dL (8.5-10.5); Carbon Dioxide 22 mmol/L (22-29); Chloride 106 mmol/L (98-107); Globulin 2.3 g/dL (1.3-4.6); Glucose 95 mg/dL (65-115); Osmolality Calculated 289 mOsm/kg (285-295); Sodium 140 mmol/L (136-145); Total Protein 6.7 g/dL (6.6-8.7)
[2025-03-09 14:13] LABS: Anion Gap 16.1 (5-19); Aspartate Amino Transferase 29 U/L (0-32); Potassium 4.1 mmol/L (3.5-5.1)
[2025-03-16 11:48] LABS: Hematocrit 31.4 % (36-47); Hemoglobin 10.30 g/dL (11.27-16.99); Mean Corpuscular HGB Conc 32.8 g/dL (30-55); Mean Corpuscular Hemoglobin 34.7 pg (27-33); Mean Corpuscular Volume 105.7 fl (85-98); Nucleated Red Blood Cells % 0 %; Platelet Count 63 10^3/cmm (157-399); Red Blood Count 2.97 10^6/uL (3.85-5.65); White Blood Count 1.77 10^3/uL (3.29-11.43)
[2025-03-16 12:04] LABS: Slide Review Slide Review Perform
[2025-03-16 12:07] LABS: Alanine Aminotransferase 13 U/L (0-33); Albumin Level 4.5 g/dL (3.5-5.2); Alkaline Phosphatase 58 U/L (35-105); Aspartate Amino Transferase 23 U/L (0-32); Blood Urea Nitrogen 14 mg/dL (8-23); Calcium 9.4 mg/dL (8.5-10.5); Carbon Dioxide 23 mmol/L (22-29); Chloride 104 mmol/L (98-107); Globulin 2.1 g/dL (1.3-4.6); Glucose 97 mg/dL (65-115); Osmolality Calculated 290 mOsm/kg (285-295); Sodium 140 mmol/L (136-145); Total Protein 6.6 g/dL (6.6-8.7)
[2025-03-16 12:35] LABS: Anion Gap 17.3 (5-19); Potassium 4.3 mmol/L (3.5-5.1)
== END 2025-03-28 23:59 | disposition home or self-care (01) ==
PROVIDERS: Nurse Practitioner; PCP Internal Medicine; Visit Provider Internal Medicine
DX: Z53.9 Procedure and treatment not carried out, unspecified reason; C92.01 Acute myeloblastic leukemia, in remission; R03.0 Elevated blood-pressure reading, without diagnosis of hypertension; E53.8 Deficiency of other specified B group vitamins
CPT/HCPCS: 36591; 80053; 83615; 85025; 99213; 99215

== ENCOUNTER 2025-03-19 15:43 | Emergency (ER) | payer MEDICARE, SELFPAY ==
--- OUTSIDE RECORDS SUMMARY | 2025-03-19 15:51 | XMS_ITS | Encounter Summary ---
Author Organization [facility] Address [address] [place] [address] Care Team Providers Care It Teacher Name Role Phone Ciro Ceron NP Primary Care Provider [phone] Encounter Details Date Type Department Care Team (Latest Contact Info) Description 01/28/1998 Outpatient Historical [facility] Rafael, Jorge Thomas MD NO ADDRESS ON FILE Depressive disorder, not elsewhere classified (Primary Dx); Other specified episodic mood disorder (CMS/HCC); Ulcerative colitis, unspecified Social History Tobacco Use Types Packs/Day Years Used Date Smoking Tobacco: Never Assessed Comments Unknown Sex and Gender Information Value Date Recorded Sex Assigned at Not on file 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
--- OUTSIDE RECORDS SUMMARY | 2025-03-19 15:51 | XMS_ITS | Patient Health Record ---
Author Organization [facility] Address [address] [place] [address] Care Team Providers Care Ceiling Insulation Blower Name Role Phone Adan Nowak Primary Care Provider Reason For Referral No Information Plan Of Treatment No Information
--- OUTSIDE RECORDS SUMMARY | 2025-03-19 15:51 | XMS_ITS | Encounter Summary ---
Author Organization [facility] Address [address] [place] [address] Care Team Providers Care Weight Control Lecturer Name Role Phone Ciro Ceron NP Primary Care Provider [phone] Encounter Details Date Type Department Care Team (Late st Contact Info) Description 09/24/2007 Emergency [facility] Emergency Department [address] [place] [address] Ed, Physician NO ADDRESS ON FILE Callum Anderson MD NO ADDRESS ON FILE Diarrhea; Syncope and Collapse; Unspecified Ulcerative Colitis (CMS/HCC); Unspecified Cardiac Dysrhythmia; Other Specified Conditions of the Tongue; Personal History of Allergy to Sulfonamides; Personal History of Allergy to Other Anti-Infective Agent; Other Postprocedural Status; Encounter for Long-Term (Current) Use of Other Medications Social History Tobacco Use Types Packs/Day Years Used Date Smoking Tobacco: Never Assessed Comments Unknown Sex and Gender Information Value Date Recorded Sex Assigned at Not on file 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 Gender Identity Not on file Sexual Orientation Not on file documented as of this encounter Plan of Treatment Not on file documented as of this encounter Procedures Procedure Name Priority Date/Time Associated Diagnosis Comments URINALYSIS W/REFLEX MICROSCOPIC Stat 09/24/2007 1:08 PM CDT CBC WITH DIFFERENTIAL Stat 09/24/2007 12:55 PM CDT LIPASE Stat 09/24/2007 12:55 PM CDT COMPREHENSIVE METABOLIC PANEL Stat 09/24/2007 12:55 PM CDT documented in this encounter Results * (ABNORMAL) URINALYSIS (09/24/2007 1:08 PM CDT) LEUKOCYTE ESTERASE UA NEGATIVE NEGATIVE [facility] MICRO EXAM No No [facility] KETONES UA NEGATIVE NEGATIVE [facility] COLOR UA Yellow Straw [facility] PROTEIN UA NEGATIVE NEGATIVE [facility] BLOOD UA NEGATIVE NEGATIVE [facility] NITRITE UA NEGATIVE NEGATIVE [facility] UROBILINOGEN UA 0.2 0.2 [facility] CLARITY UA Clear Clear [facility] GLUCOSE UA NEGATIVE NEGATIVE [facility] SPECIFIC GRAVITY UA <=1.005(A) <=1.005 [facility] PH UA 6.0 5.0 - 9.0 [facility] BILIRUBIN UA NEGATIVE NEGATIVE [facility] Urine specimen (specimen) 09/24/2007 1:08 PM CDT 09/24/2007 1:08 PM CDT us Callum Andreson MD URINE ORDERABLES Final Res ult [facility] CLIA# [id number] [address] [place] [address] * (ABNORMAL) CBC WITH DIFFERENTIAL (09/24/2007 12:55 PM CDT) Pathologist [facility] MCHC 33.2 30.0 - 35.0 g/dL [facility] LYMPHOCYTE ABSOLUTE 1.6 1.2 - 4.0 K/ul [facility] LYMPHOCYTES 16.1(L) 24.0 - 44.0 % [facility] MCV 96.4 84.0 - 103.0 Fl [facility] BASOPHILS 0.1 0.0 - 1.0 % [facility] MPV 9.5 8.9 - 12.8 Fl [facility] BASOPHILS ABSOLUTE 0.0 0.0 - 0.2 K/ul [facility] HEMOGLOBIN 13.4 12.0 - 16.0 g/dL [facility] MONOCYTES 5.6 2.0 - 10.0 % [facility] RDW 12.9 11.0 - 14.5 % [facility] MONOCYTE ABSOLUTE 0.6 0.1 - 0.6 K/ul [facility] WBC 9.8 4.8 - 10.8 K/ul [facility] MCH 32.0 27.0 - 34.0 pg [facility] NEUTROPHILS 77.5(H) 42.2 - 75.2 % [facility] NEUTROPHIL ABSOLUTE 7.6 2.0 - 8.0 K/ul [facility] HEMATOCRIT 40.4 36.0 - 46.0 % [facility] PLATELETS 179 140 - 440 K/ul [facility] EOSINOPHIL ABSOLUTE 0.1 0.0 - 0.7 K/ul [facility] EOSINOPHILS 0.7 0.0 - 7.0 % [facility] RBC 4.19(L) 4.20 - 5.40 Mil/ul [facility] Blood specimen (specimen) 09/24/2007 12:55 PM CDT 09/24/2007 12:55 PM CDT us Callum Anderson MD HEMATOLOGY ORDERABLES Umu gotti Result [facility] CLIA# [id number] [address] [place] [address] * LIPASE (09/24/2007 12:55 PM CDT) LIPASE 28 6 - 51 U/L [facility] Blood specimen (specimen) 09/24/2007 12:55 PM CDT 09/24/2007 12:55 PM CDT us Callum Anderson MD CHEMISTRY ORDERABLES Final Result [facility] CLIA# [id number] [address] [place] [address] * (ABNORMAL) COMPREHENSIVE METABOLIC PANEL (09/24/2007 12:55 PM CDT) GLUCOSE 88 70 - 110 mg/dL [facility] CHLORIDE 104 95 - 110 mEq/L [facility] OSMOLALITY, CALCULATED 283 275 - 295 mOsm/Kg [facility] ALKALINE PHOSPHATASE 69 25 - 100 U/L [facility] GLOBULIN (CALC) 2.7 2.4 - 3.9 g/dL [facility] SODIUM 138 136 - 145 mEq/L [facility] BILIRUBIN TOTAL 0.5 0.3 - 1.2 mg/dL [facility] TOTAL PROTEIN 7.1 6.3 - 8.2 g/dL [facility] BUN 14 7 - 17 mg/dL [facility] AST 23 8 - 33 U/L [facility] CO2 30 22 - 32 mmol/l [facility] ALBUMIN/GLOBULIN RATIO 1.6 1.0 - 2.3 [facility] ALBUMIN 4.4 3.5 - 5.0 g/dL [facility] POTASSIUM 3.7 3.5 - 5.0 mEq/L [facility] Comment: Specimen slightly hemolyzed ANION GAP 8(L) 9 - 20 mEq/L [facility] CALCIUM 9.7 8.4 - 10.5 mg/dL [facility] CREATININE 0.6(L) 0.7 - 1.2 mg/dL [facility] ALT 19 4 - 36 IU/L [facility] Blood specimen (specimen) 09/24/2007 12:55 PM CDT 09/24/2007 12:55 PM CDT us Callum Anderson MD CHEMISTRY ORDERABLES Final Result [facility] CLIA# [id number] [address] [place] [address] documented in this encounter Visit Diagnoses Diagnosis Diarrhea Syncope and collapse Ulcerative colitis, unspecified Cardiac dysrhythmia, unspecified Other specified conditions of the tongue Personal history of allergy to sulfonamides Personal history of allergy to other anti-infective agent Other postprocedural status(V45.89) Other postprocedural status Encounter for long-term (current) use of other medications documented in this encounter Care Teams Weight Control Lecturer Relationship Specialty Start Date End Date Ciro Ceron NP [address] [place] [address] PCP - General Nurse Practitioner Family 12/05/18 documented as of this encounter
--- OUTSIDE RECORDS SUMMARY | 2025-03-19 15:51 | XMS_ITS | Encounter Summary ---
Author Organization [facility] Address [address] [place] [address] Care Team Providers Care Locum Tenens Hospitalist Name Role Phone Ciro Ceron NP Primary Care Provider [phone] Encounter Details Date Type Department Care Team (Late st Contact Info) Description 07/12/2003 Outpatient [facility] [address] [address] Amada Figueredo MD NO ADDRESS ON FILE SYMPTOMS IN BREAST NEC (Primary Dx) Social History Tobacco Use Types Packs/Day Years Used Date Smoking Tobacco: Never Assessed Comments Unknown Sex and Gender Information Value Date Recorded Sex Assigned at Not on file 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
--- OUTSIDE RECORDS SUMMARY | 2025-03-19 15:51 | XMS_ITS | Data Portability ---
Author Organization [facility] Address [address] [address] [place] [address] Assessment Encounter Date Assessment Date Assessment LastModified by Organization Details LastModified Time 01/04/2023 01/04/2023 he should f/u with his pcp or cardiology in 2 weeks to recheck bp and adjust his medication. he will schedule results. he is asymptomatic. he is due for his 6 months f/u with cardiology. this is not scheduled yet. he has this apt scheduled. he feels bad in no way he ways. Not available 01/04/2023 13:23:09 Plan of Treatment Reminders Order Date Submit Date Provider Last Modified By Organization Details Last Modified Time Details Appointments None recorded. Lab None recorded. Referral None recorded. Procedures None recorded. Surgeries None recorded. Imaging None recorded. Medication Orders losartan 50 mg tablet 2022 [address], [address], 3 16:17:07 losartan 50 mg tablet 2022 [address] [address] [place], [address], 13:49:02 Patient TargetsNo targets recorded. Patient InstructionsNo instructions recorded. Reason for Referral None Reported. Problems Name Problem SNOMED Code Status Onset Date Resolution Date Notes Provider Name and Address Organization Details Recorded Time Essential hypertension 89143066 Active 2022 Eddie Cervantes DO [address] [place], [address], [facility] 3 16:43:20 Problem Notes None recorded. Medical Equipment None Reported. Allergies No known drug allergies Medications Name Sig Start Date Stop Date Status Note LastModified by Organization Details LastModified Time losartan 50 mg tablet Take 1 tablet twice a day by oral route for 30 days. 023 active Not Available Not Available Not Avai lable flecainide 100 mg tablet Take 1 tablet every 12 hours by oral route. active Not Available Not Available No t Available metoprolol tartrate 25 mg tablet Take 1 tablet as needed by oral route. active for heart rate over 100 Not Available Not Available Not Available Eliquis 5 mg tablet Take 1 tablet twice a day by oral route. active Not Available Not Available No t Available Vitals Date Recorded Body weight Body temperature Heart rate Oxygen saturation Systolic And Diastolic Provider Name and Address Organization Details Last Updated DateTime 3 417249. 16 g 97.9 [degF] 65 /min 96 % 162/90 mm[Hg] Vanda Mackeyoch [facility] 3 13:06:43 Date Recorded Body weight Oxygen saturation Heart rate Respiratory rate Body temperature Body mass index (BMI) Body height Systolic And Diastolic Provider Name and Address Organization Details Last Updated DateTime 3 091809. 65 g 97 % 59 /min 18 /min 97.5 [degF] 37.8 kg/m2 175.26 cm 178/106 mm[Hg] ROBB POWELL [facility] 3 15:59:37 Social History None recorded. Functional Status None recorded. Mental Status None recorded. Family History Nothing Reported. Medical History No medical history recorded. Past Encounters Encounter ID Performer Location Encounter Start Date Encounter Closed Date Diagnosis/Indication Diagnosis SNOMED-CT Code Diagnosis ICD10 Code Diagnosis IMO Codes Diagnosis Note [id number] Benigno Alaniz MD [facility]) [address] [place] [address] 01/04/2023 12:47:45 01/04/2023 18:11:27 Essential hypertension 62707408 I10 low salt diet to help keep the blood pressure under control. [id number] Eddie Cervantes DO [facility] ([facility]) [address] [place] [address] 03/13/2023 15:44:28 03/13/2023 18:21:50 Essential hypertension 92804223 I10 pt has been noncomplia nt with losartan. counseled pt on DX of HTN, Afib, and need for treatment. discussed taking meds as prescribed . pt to restart 50mg BID for the first wk, f/u with PCP in 1-2 wks. go to er with any significan t chest pains or bp above 180s/100 Chronic at rial fibrillation 009241842 I48.20 Health Concerns Section Related Observation LastModified by Organization Detai ls LastModified Time None Recorded Concern Status LastModified by Organization Details LastModified Time None Recorded Advance Directives Directive None Recorded Payers Insurance Date Sequence Insurance Name Policy Number Policy Hickey Covered Member ID Hickey Member ID Guarantor Name 01/17/2023 1 [place] Andrea Garner Eusebio [id number] Andrea Garner Eusebio 03/22/2023 1 [facility] (MEDICARE REPLACEMENT/A DVANTAGE - PPO) [id number] Andrea Garner Eusebio [id number] Andrea Garner Eusebio 03/13/2023 [place] - [place] A - [facility] (MEDICARE) Andrea Garner Eusebio [id number] Andrea Garner Eusebio Notes Date Note Type Note Provider Name and Address Organization Details Recorded Time 3 text/html HypertensionReported by PatientHPIFor duration, patient reportshas noted for months (3-4). For associated symptoms, patient reportsno shortness of breath,no fatigue, andno palpitations(headache present but feeling better now). For severity, (pt checked it [facility] and it was 178/103. it has been running 150-165 systolic and 90-100s diastolic. pt states it has been elevated since his a fib started.).Pt had a recent spell of a fib, but states it is under control with his medication from Dr. Parra as noted in the HPI No PCP Benigno Alaniz MD [address] [place], [address], [facility] Meredith Salazar 01/04/2023 13:28:41 3 text/html HypertensionReported by PatientHPIFor duration, patient reportshas noted for months (3-4). For associated symptoms, patient reportsno shortness of breath,no fatigue, andno palpitations.ROS as noted in the HPI No PCP pt c/o HTN, pt has a rx for losartan 50mg but states he does not take them daily Pt checked BP at [facility] and it was 175/101. It has been running 150-165/90-100s. Pt states it has been elevated since his a fib started. headache present but feeling better now The patient denies any recent cardiac Chest Pain, new or wrosening SOB or leg swelling. The patient denies any change in bowels or bladder Eddie Cervantes DO [address] [place], [address], [facility] Meredith Salazar 03/13/2023 16:57:06
--- OUTSIDE RECORDS SUMMARY | 2025-03-19 15:51 | XMS_ITS | Encounter Summary ---
Author Organization [facility] Address [address] [place] [address] Care Team Providers Care Salvage Supervisor Name Role Phone Ciro Ceron ENVIRONMENTAL ADVISOR Primary Care Provider [phone] Encounter Details Date Type Department Care Team (Late st Contact Info) Description 12/04/2006 Outpatient Historical [facility] Kimberli Parry MD [address] [facility] [address] [place] [address] Syncope and Collapse (Primary Dx) Social History Tobacco Use Types Packs/Day Years Used Date Smoking Tobacco: Never Assessed Comments Unknown Sex and Gender Information Value Date Recorded Sex Assigned at Not on file 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 INR 1.0 INTERFACE SYSTEM Comment: Expected Values for INR: DVT/PE Goal INR 2.5; range 2.0 - 3.0 Valve Replacement Tissue Goal INR 2.5; range 2.0 - 3.0 Mechanical Goal INR 3.0; range 2.5 - 3.5 POST-FL Goal INR 2.5; range 2.0 - 3.0 or Goal 3.0; range 2.5 - 3.5 Atrial Fibrillation Goal INR 2.5; range 2.0 - 3.0 Ischemic Stroke Goal INR 2.5; range 2.0 - 3.0 For additional information see Guidelines for Anticoagulation available from the pharmacy Rosy Ozuna PTT 24.1 21.6 - 35.6 Secs INTERFACE SYSTEM Comment: Therapeutic Range: Hi-level PE/DVT heparin protocol 80.1 -95.0 sec Lo-level PE/DVT heparin protocol 67.1 - 80.0 sec Cardiac Heparin Protocol 67.1 - 85.0 sec Neuro Heparin Protocol 67.1 - 80.0 sec As of 04/04/2006 note change in APTT Normal Range. 12/04/2006 7:13 AM CDT us Kimberli Prary MD HEMATOLOGY ORDERABLES Edited INTERFACE SYSTEM Refer to clinic/hospital department * (ABNORMAL) CBC WITHOUT DIFFERENTIAL (12/04/2006 7:13 AM CDT) WBC 8.4 4.8 - 10.8 K/ul INTERFACE SYSTEM RBC 4.37 4.20 - 5.40 Mil/ul INTERFACE SYSTEM HEMOGLOBIN 13.3 12.0 - 16.0 g/dL INTERFACE SYSTEM HEMATOCRIT 41.1 36.0 - 46.0 % INTERFACE SYSTEM MCV 94.1 84.0 - 103.0 Fl INTERFACE SYSTEM MCH 30.4 27.0 - 34.0 pg INTERFACE SYSTEM MCHC 32.4 30.0 - 35.0 g/dL INTERFACE SYSTEM RDW 13.4 11.0 - 14.5 % INTERFACE SYSTEM PLATELETS 196 140 - 440 K/ul INTERFACE SYSTEM MPV 9.8 8.9 - 12.8 Fl INTERFACE SYSTEM NEUTROPHILS 47.3 42.2 - 75.2 % INTERFACE SYSTEM LYMPHOCYTES 41.0 24.0 - 44.0 % INTERFACE SYSTEM MONOCYTES 9.5 2.0 - 10.0 % INTERFACE SYSTEM EOSINOPHILS 2.0 0.0 - 7.0 % INTERFACE SYSTEM BASOPHILS 0.2 0.0 - 1.0 % INTERFACE SYSTEM NEUTROPHIL ABSOLUTE 4.0 2.0 - 8.0 K/ul INTERFACE SYSTEM LYMPHOCYTE ABSOLUTE 3.5 1.2 - 4.0 K/ul INTERFACE SYSTEM MONOCYTE ABSOLUTE 0.8(H) 0.1 - 0.6 K/ul INTERFACE SYSTEM EOSINOPHIL ABSOLUTE 0.2 0.0 - 0.7 K/ul INTERFACE SYSTEM BASOPHILS ABSOLUTE 0.0 0.0 - 0.2 K/ul INTERFACE SYSTEM 12/04/2006 7:13 AM CDT Kimberli Parry MD HEMATOLOGY ORDERABLES Edited Performing Organization Address [facility] Phone Number INTERFACE SYSTEM Refer to clinic/hospital department * BASIC METABOLIC PANEL (12/04/2006 7:13 AM CDT) GLUCOSE 99 70 - 110 mg/dL INTERFACE SYSTEM BUN 14 7 - 17 mg/dL INTERFACE SYSTEM CREATININE 0.7 0.7 - 1.2 mg/dL INTERFACE SYSTEM SODIUM 141 136 - 145 mEq/L INTERFACE SYSTEM POTASSIUM 4.7 3.5 - 5.0 mEq/L INTERFACE SYSTEM Comment:Specimen slightly he molyzed CHLORIDE 105 95 - 110 mEq/L INTERFACE SYSTEM CO2 32 22 - 32 mmol/l INTERFACE SYSTEM CALCIUM 9.6 8.4 - 10.5 mg/dL INTERFACE SYSTEM ANION GAP 9 9 - 20 mEq/L INTERFACE SYSTEM OSMOLALITY, CALCULATED 292 275 - 295 mOsm/Kg INTERFACE SYSTEM 12/04/2006 7:13 AM CDT Kimberli Parry MD CHEMISTRY ORDERABLES Edited Performing Organization Address [facility] Phone Number INTERFACE SYSTEM Refer to clinic/hospital department documented in this encounter Visit Diagnoses Diagnosis Syncope and collapse- Primary documented in this encounter Care Teams Salvage Supervisor Relationship Specialty Start Date End Date Ciro Ceron NP [address] [place] [address] PCP - General Nurse Practitioner Family 12/05/18 documented as of this encounter
--- OUTSIDE RECORDS SUMMARY | 2025-03-19 15:51 | XMS_ITS | Encounter Summary ---
Author Organization [facility] Address [address] [place] [address] Care Team Providers Care Assembler Filters Name Role Phone Ciro Ceron NP Primary Care Provider [phone] Encounter Details Date Type Department Care Team (Late st Contact Info) Description 11/05/2008 Ancillary Orders [facility] [facility] [address] [place] [address] Guerita English MD [address] [place] [address] Screening Mammogram Social History Tobacco Use Types Packs/Day Years Used Date Smoking Tobacco: Never Alcohol Use Standard Drinks/Week Comments No 0 (1 standard drink = 0.6 oz pur e alcohol) Comments No Sex and Gender Information Value Date Recorded Sex Assigned at Not on file 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
--- OUTSIDE RECORDS SUMMARY | 2025-03-19 15:51 | XMS_ITS | Encounter Summary ---
Author Organization [facility] Address [address] [place] [address] Care Team Providers Care Chromium Plater Name Role Phone Ciro Ceron MACHINE JOINT CUTTER Primary Care Provider [phone] Encounter Details Date Type Department Care Team (Latest Contact Info) Description 09/30/2007 Outpatient Historical [facility] [address] [place] [address] Kimberli Parry MD [address] [address] Syncope and Collapse Social History Tobacco Use Types Packs/Day Years Used Date Smoking Tobacco: Never Assessed Comments Unknown Sex and Gender Information Value Date Recorded Sex Assigned at Not on file Legal Sex Female 4:49 AM TRANSFER SPECIALIST Gender Identity Not on file Sexual Orientation Not on file documented as of this encounter Plan of Treatment Not on file documented as of this encounter Visit Diagnoses Diagnosis Syncope and collapse documented in this encounter Care Teams Chromium Plater Relationship Specialty Start Date End Date Ciro Ceron NP [address] [place] [phone] PCP - General Nurse Practitioner Family 12/05/18 documented as of this encounter
--- OUTSIDE RECORDS SUMMARY | 2025-03-19 15:51 | XMS_ITS | Encounter Summary ---
Author Organization [facility] Address [address] [place] [address] Care Team Providers Care [employer] Art Teacher Name Role Phone Jie Ciro Trevon MEDICAL ONCOLOGY PHYSICIAN Primary Care Provider [phone] Encounter Details Date Type Department Care Team (Late st Contact Info) Description 11/14/2005 Emergency [facility] Emergency Department [address] 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 Gender Identity Not on file Sexual Orientation Not on file documented as of this encounter Plan of Treatment Not on file documented as of this encounter Procedures Procedure Name Priority Date/Time Associated Diagnosis Comments CBC WITH DIFFERENTIAL Routine 11/14/2005 6:09 PM CDT BASIC METABOLIC PANEL Routine 11/14/2005 6:[address] HEAD WO CONTRAST Routine 11/14/2005 4 :03 PM CDT documented in this encounter Results * (ABNORMAL) BASIC METABOLIC PANEL (11/14/2005 6:09 PM CDT) GLUCOSE 92 70 - 110 mg/dL INTERFACE SYSTEM BUN 18(H) 7 - 17 mg/dL INTERFACE SYSTEM CREATININE 0.6(L) 0.7 - 1.2 mg/dL INTERFACE SYSTEM SODIUM 140 136 - 145 mEq/L INTERFACE SYSTEM POTASSIUM 4.6 3.5 - 5.0 mEq/L INTERFACE SYSTEM Comment:Specimen slightly he molyzed CHLORIDE 104 95 - 110 mEq/L INTERFACE SYSTEM CO2 28 22 - 32 mmol/l INTERFACE SYSTEM ANION GAP 13 9 - 20 mEq/L INTERFACE SYSTEM OSMOLALITY, CALCULATED 290 275 - 295 mOsm/Kg INTERFACE SYSTEM CALCIUM 10.4 8.4 - 10.5 mg/dL INTERFACE SYSTEM 11/14/2005 6:09 PM CDT James Lovelace DO CHEMISTRY ORDERABLES Final Result INTERFACE SYSTEM Refer to clinic/hospital department * (ABNORMAL) CBC WITH DIFFERENTIAL (11/14/2005 6:09 PM CDT) WBC 13.4(H) 4.8 - 10.8 K/ul INTERFACE SYSTEM RBC 4.35 4.20 - 5.40 Mil/ul INTERFACE SYSTEM HEMOGLOBIN 13.6 12.0 - 16.0 g/dL INTERFACE SYSTEM HEMATOCRIT 41.0 36.0 - 46.0 % INTERFACE SYSTEM MCV 94.3 84.0 - 103.0 Fl INTERFACE SYSTEM MCH 31.3 27.0 - 34.0 pg INTERFACE SYSTEM MCHC 33.2 30.0 - 35.0 g/dL INTERFACE SYSTEM RDW 12.7 11.0 - 14.5 % INTERFACE SYSTEM PLATELETS 211 140 - 440 K/ul INTERFACE SYSTEM MPV 9.8 8.9 - 12.8 Fl INTERFACE SYSTEM NEUTROPHILS 74.7 42.2 - 75.2 % INTERFACE SYSTEM LYMPHOCYTES 18.2(L) 24.0 - 44.0 % INTERFACE SYSTEM MONOCYTES 5.9 2.0 - 10.0 % INTERFA CE SYSTEM EOSINOPHILS 1.1 0.0 - 7.0 % INTERF TOSHIA SYSTEM BASOPHILS 0.1 0.0 - 1.0 % INTERFAC E SYSTEM NEUTROPHIL ABSOLUTE 10.0(H) 2.0 - 8.0 K/uL INTERFACE SYSTEM LYMPHOCYTE ABSOLUTE 2.4 1.2 - 4.0 K/ul INTERFACE SYSTEM MONOCYTE ABSOLUTE 0.8(H) 0.1 - 0.6 K/ul INTERFACE SYSTEM EOSINOPHIL ABSOLUTE 0.2 0.0 - 0.7 K/ul INTERFACE SYSTEM BASOPHILS ABSOLUTE 0.0 0.0 - 0.2 K/ul INTERFACE SYSTEM PERIPHERAL BLOOD SMEAR REVIEW Automated Diff Automated Diff INTERFACE SYSTEM 11/14/2005 6:09 PM CDT us James A Radu DO HEMATOLOGY ORDERABLES Umu l Result INTERFACE SYSTEM Refer to clinic/hospital department * CT HEAD WO CONTRAST (11/14/2005 4:03 PM CDT) Anatomical Region Laterality Modality Head Other 11/14/2005 4:03 PM CDT Narrative 11/14/2005 4:[address] HEAD WITHOUT CONTRAST - 11/14/2005 HISTORY: Syncope. Noncontrast axial images were obtained through the brain. No comparison studies available. Ventricles are normal in size. No mass, hemorrhage, or abnormal extraaxial fluid collection is seen. No ischemic changes are identified. No bony abnormality is seen. IMPRESSION: No significant abnormality. ekp / Dictated By: Jensen Arteaga M.D. Electronically Signed By: Jensen Arteaga M.D. Date Signed: 11/14/05 Procedure Note 03/17/2009 CT HEAD WITHOUT CONTRAST - 11/14/2005 HISTORY: Syncope. Noncontrast axial images were obtained through the brain. No comparisonstudies available. Ventricles are normal in size. No mass, hemorrhage, or abnormalextraaxial fluid collection is seen. No ischemic changes are identified. No bony abnormality is seen. IMPRESSION: No significant abnormality. ekp / Dictated By: Jensen Arteaga M.D. Electronically Signed By: Jensen Arteaga M.D. Date Signed: 11/14/05 us James Rosenthalgler DO CT ORDERABLES Final Resu lt documented in this encounter Visit Diagnoses Diagnosis Syncope and collapse- Primary documented in this encounter Care Teams [employer] Art Teacher Relationship Specialty Start Date End Date Ciro Ceron NP [address] [place] [phone] PCP - General Nurse Practitioner Family 12/05/18 documented as of this encounter
--- OUTSIDE RECORDS SUMMARY | 2025-03-19 15:51 | XMS_ITS | Encounter Summary ---
Author Organization [facility] Address [address] [place] [address] Care Team Providers Care Sludge Mill Operator Name Role Phone Ciro Ceron NP Primary Care Provider [phone] Encounter Details Date Type Department Care Team (Latest Contact Info) Description 07/01/2003 Outpatient [facility] [address] [place], [place] [id number] Trevon Azevedo MD NO ADDRESS ON FILE SCREENING MAMM-MAILG NEOPL-OTHER (Primary Dx) Social History Tobacco Use Types Packs/Day Years Used Date Smoking Tobacco: Never Assessed Comments Unknown Sex and Gender Information Value Date Recorded Sex Assigned at Not on file Legal 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
--- OUTSIDE RECORDS SUMMARY | 2025-03-19 15:51 | XMS_ITS | Encounter Summary ---
Author Organization [facility] Address [address] [place] [address] Care Team Providers Care Machine Plate Stacker Name Role Phone Ciro Ceron GARDE MANGER Primary Care Provider Encounter Details Date Type Department Care Team (Late st Contact Info) Description 06/07/2003 Outpatient Historical [facility] Medicine [address] [phone] Sourav Beltran MD [address] [place] [address] Social History Tobacco Use Types Packs/Day Years Used Date Smoking Tobacco: Never Assessed Comments Unknown Sex and Gender Information Value Date Recorded Sex Assigned at Not on file Legal Sex Female 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
--- OUTSIDE RECORDS SUMMARY | 2025-03-19 15:51 | XMS_ITS | Encounter Summary ---
Author Organization [facility] Address [address] [place] [address] Care Team Providers Care Mushroom Grower Name Role Phone Ciro Ceron LATHE MACHINE OPERATOR Primary Care Provider [phone] Encounter Details Date Type Department Care Team (Late st Contact Info) Description 07/01/2003 Outpatient [facility] [address] [facility] [address] [place] [address] Amada Figueredo MD NO ADDRESS ON FILE SCREENING MAMM-MAILG NEOPL-OTHER (Primary Dx) Social History Tobacco Use Types Packs/Day Years Used Date Smoking Tobacco: Never Assessed Comments Unknown Sex and Gender Information Value Date Recorded Sex Assigned at Not on file Legal Sex Female 4: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
--- OUTSIDE RECORDS SUMMARY | 2025-03-19 15:51 | XMS_ITS | Clinical Summary ---
Author Organization [facility] Address [address] Dingn: [place] [address] Care Team Providers Care Insurance Adjustor Name Role Phone Ciro Ceron APPEALS NURSE Primary Care Provider [phone] Allergies Active Allergy Reactions Criticality Noted Date Comments Adhesive Itching Low 06/28/2020 Amoxicillin Rash,Swelling Low 10/16/2008 Sulfa (Sulfonamide Antibiotics) Rash Low 09/28 Medications acetaminophen (TYLENOL) 500 mg tablet Take 500 mg by mouth every 6 hours as needed. 9 Active mesalamine delayed release (ASACOL HD) 800 mg table Take 2 Tablets (1,600 mg) by mouth 3 times daily. 180 Tablet 6 9 Active escitalopram oxalate (LEXAPRO) 20 mg tablet Take 1 Tab by mouth daily. 30 Tablet 1 5 Active posaconazole (NOXAFIL) 100 mg Tablet, Delayed Release (E.C.) Take 200 mg by mouth daily. 2 Active acyclovir (ZOVIRAX) 400 mg tablet Take 400 mg by mouth. 1 Active amLODIPine (NORVASC) 5 mg tablet Take 5 mg by mouth daily. 2 Active clobetasoL (TEMOVATE) 0.05 % Cream Apply to affected area 2 times daily. 1 Active docusate sodium (COLACE) 100 mg capsule Take 100 mg by mouth. 1 Active famotidine (PEPCID) 40 mg tablet Take 40 mg by mouth daily. 1 Active fluticasone furoate-vilante roL (Breo Ellipta) 100-25 mcg/dose Disk with Device INHALE 1 PUFF BY MOUTH EVERY DAY DIRECTED 2 Active levoFLOXacin (LEVAQUIN) 500 mg tablet TAKE ONE TABLET BY MOUTH DAILY FOR SEVEN DAYS 2 Active lidocaine-prilo shelbi (EMLA) 2.5-2.5 % Cream APPLY topically TO port AREA ONE HOUR prior TO accessing port 2 Active LORazepam (ATIVAN) 1 mg tablet TAKE 1/2 TO 1 TABLET BY MOUTH UP TO THREE TIMES DAILY NEEDED FOR NAUSEA OR FOR RESTLESSNESS. 1 Active losartan (COZAAR) 50 mg tablet Take 50 mg by mouth daily. 1 Active ondansetron (ZOFRAN ODT) 4 mg Tablet, Rapid Dissolve dissolve 2 tablets (8mg) in mouth every 4 to 6 hours as needed for nausea. 1 Active potassium chloride (KLOR-CON) 10 mEq Extended Release tablet Take 10 mEq by mouth daily. 1 Active traMADoL (ULTRAM) 50 mg tablet TAKE 1 OR 2 TABLETS BY MOUTH TWICE DAILY NEEDED FOR PAIN 2 Active venetoclax (VENCLEXTA) 100 mg tablet Take 100 mg by mouth daily. 1 Active escitalopram oxalate (LEXAPRO) 20 mg tablet Take 40 mg by mouth daily. 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 Chest pain 06/11/2014 Hyperlipidemia 06/11/2014 Immunizations Immunization Administration Dates Next Due Influenza Seasonal Unspecified Formulation IM Family History Medical History Relation Name Comments Colon Cancer Neg Hx Social History Tobacco Use Types Packs/Day Years Used Date Smoking Tobacco: Never Smokeless Tobacco: Never Alcohol Use Standard Drinks/Week Comments No 0 (1 standard drink = 0.6 oz pur e alcohol) Comments Unknown Sex and Gender Information Value Date Recorded Sex Assigned at Not on file 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 Gender Identity Not on file Sexual Orientation Not on file Last Filed Vital Signs Vital Sign Reading Time Taken Comments Blood Pressure 129/77 12/05/2018 11:02 AM CDT Pulse 62 12/05/2018 11:02 AM CDT Temperature 36.7 C (98.1 F) 06/25/2015 12:38 PM [employer]INT [employer]OLLER Respiratory Rate 14 12/05/2018 11:02 AM CDT Oxygen Saturation - - Inhaled Oxygen Concentration - - Weight 59 kg (130 lb) 11/28/2018 1:27 PM CDT Height 156.2 cm (5' 1.5 ) 11/28/2018 1:27 PM CDT Body Mass Index 24.17 11/28/2018 1:27 PM CDT Plan of Treatment Health Maintenance Due Date Last Done Comments BREAST CANCER SCREENING 1992 FIT-DNA Q 3 years 1997 FIT/FOBT Q 1 year 1997 Flex Sig/CT Colonography Q 5 years 1997 PNEUMOCOCCAL VACCINE 50+ YEA RS (1 of 1 - PCV) 2002 ZOSTER VACCINE (1 of 2) 2002 OSTEOPOROSIS SCREENING 2017 COLORECTAL SCREENING 12/05/2020 12/05/2018, 12/06/19 Colorectal Cancer Screening 12/05/2020 INFLUENZA VACCINE (#1) 2024 02/27/2014 RSV VACCINE (60+ or ) (1 - 1-dose 75+ series) 2027 DTAP/TDAP/TD VACCINES (2 - Td or Tdap) 06/17/2028 Procedures Procedure Name Priority Date/Time Associated Diagnosis Comments COLONOSCOPY REPORT 12/05/2018 10:51 AM CDT from Last 3 Months or Most Recently Relevant to Health Maintenance Results * COLONOSCOPY REPORT (12/05/2018 10:51 AM CDT) Rashaad Negrete MD GI PROCEDURE ORDERABLES F inal Result from Last 3 Months or Most Recently Relevant to Health Maintenance Insurance [facility] DUAL COMPLETE HMO DSNP [id number] MEDICAID [place] Care Teams Insurance Adjustor Relationship Specialty Start Date End Date Ciro Ceron NP [address] [place] [address] PCP - General Nurse Practitioner Family 12/05/18
--- OUTSIDE RECORDS SUMMARY | 2025-03-19 15:51 | XMS_ITS | Data Portability ---
Author Organization [facility], [facility] Address [address] [place] [address] YVONNE JAFFE [address] Assessment No assessment recorded. Plan of Treatment Reminders Order Date Submit Date Provider Last Modified By Organization Details Last Modified Time Details Appointments None recorded. Lab None recorded. Referral inside sales account manager referral 2022 023 [email or web address] Jake Rivas MD, [address] , [place], [address], 09:36:43 Procedures None recorded. Surgeries None recorded. Imaging None recorded. Medication Orders None recorded. Patient TargetsNo targets recorded. Patient InstructionsNo instructions recorded. 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 Allergies Allergen ID Allergen Name Allergen Category Reaction Reaction Severity Criticality Documentation Date Start Date Code Code System Note Provider Name and Address Organization Details Recorded Time 03809 amoxicill in medicatio n Not available Not available Not available 02/08/2023 723 RxNorm Abigail russell [facility] 13:32:59 47305 Substance with sulfonami de structure and antibacte rial mechanism of action (substanc e) medicatio n Not available Not available Not available 02/08/2023 90772 8003 SNOMED Abigail russell [facility] 13:33:09 38473 adhesive tape environme nt,medica tion Not available Not available Not available 02/08/2023 Abigail russell [facility], [place] 3 13:33:16 Medications Name Sig Start Date Stop Date Status Note LastModified by Organization Details LastModified Time losartan 50 mg tablet TAKE 1 TABLET BY MOUTH TWICE DAILY active Not Available Not Available No t Available potassium chloride ER 10 mEq capsule,exten ded release take 1 capsule BY MOUTH EVERY DAY active Not Available Not Available No t Available clindamycin HCl 300 mg capsule take 1 capsule BY MOUTH THREE TIMES DAILY active Not Available Not Available No t Available azithromycin 250 mg tablet TAKE 2 TABLETS BY MOUTH TODAY, THEN TAKE 1 TABLET DAILY ON DAYS 2-5 active Not Available Not Available No t Available amlodipine 2.5 mg tablet TAKE 1 TABLET BY MOUTH EVERY DAY active Not Available Not Available No t Available potassium chloride ER 10 mEq tablet,extend ed release TAKE 1 TABLET BY MOUTH EVERY DAY active Not Available Not Available No t Available acyclovir 400 mg tablet TAKE 1 TABLET BY MOUTH THREE TIMES DAILY AT 9AM, 2PM AND 8PM active Not Available Not Available No t Available tramadol 50 mg tablet TAKE 1 TABLET BY MOUTH TWICE DAILY NEEDED FOR PAIN active Not Available Not Available No t Available ondansetron 8 mg disintegratin g tablet DISSOLVE ONE TABLET BY MOUTH EVERY 6 HOURS NEEDED FOR NAUSEA AND VOMITING active Not Available Not Available No t Available lidocaine-luna locaine 2.5 %-2.5 % topical cream apply TO port area ONE hour prior TO accessing port active Not Available Not Available No t Available lorazepam 0.5 mg tablet TAKE 1 TO 2 TABLETS EVERY 6 HOURS NEEDED FOR NAUSEA AND VOMITING OR ANXIETY OR INSOMNIA active Not Available Not Available No t Available levofloxacin 500 mg tablet TAKE ONE TABLET BY MOUTH EVERY DAY active Not Available Not Available No t Available levofloxacin 750 mg tablet active Not Available Not Availabl e Not Available cefdinir 300 mg capsule take 1 capsule BY MOUTH EVERY TWELVE HOURS for 7 days active Not Available Not Available No t Available escitalopram 20 mg tablet TAKE 1 TABLET BY MOUTH EVERY DAY active Not Available Not Available No t Available Breo Ellipta 100 mcg-25 mcg/dose powder for inhalation INHALE 1 PUFF EVERY DAY DIRECTED active Not Available Not Available No t Available posaconazole 100 mg tablet,delaye d release TAKE 2 TABLETS BY MOUTH EVERY MORNING active Not Available Not Available No t Available Venclexta 100 mg tablet active Not Available Not Available No t Available Vitals Date Recorded Body height Body weight Body mass index (BMI) Oxygen saturation Heart rate Body temperature Systolic And Diastolic Provider Name and Address Organization Details Last Updated DateTime 3 156.21 cm 95277.7 9 g 24.7 kg/m2 97 % 69 /min 97.6 [degF] 122/62 mm[Hg] Abigail Prieto [facility] 3 13:32:16 Social History None recorded. Functional Status None recorded. Mental Status None recorded. Family History Nothing Reported. Medical History No medical history recorded. Gynecological HistoryNo gynecological history recorded. Obstetrics History GPAL:G 0 P 0 0 0 0 Immunizations Vaccine Type Date Status Note Provider Nam e and Address Organization Details Recorded Time Tdap 06/17/2018 completed Abigail russell [facility] 02/08/2023 13:32:43 Past Encounters Encounter ID Performer Location Encounter Start Date Encounter Closed Date Diagnosis/Indication Diagnosis SNOMED-CT Code Diagnosis ICD10 Code Diagnosis IMO Codes Diagnosis Note [id number] DAVID DENISE PA-C [facility] ([facility] [address] [place] [address] 02/08/2023 13:00:26 02/08/2023 13:41:34 Bilateral hearing loss 96924517 H91.93 no infection or wax. Health Concerns Section Related Observation LastModified by Organization Detai ls LastModified Time None Recorded Concern Status LastModified by Organization Details LastModified Time None Recorded Advance Directives Directive None Recorded Payers Insurance Date Sequence Insurance Name Policy Number Policy Hickey Covered Member ID Hiceky Member ID Guarantor Name 02/20/2023 [place] [facility] Eulalia Kaplan [id number] Eulalia Kaplan 02/08/2023 2 [place] Eulalia Kaplan [id number] Eulalia Kaplan 02/08/2023 1 [place] Eulalia Kaplan [id number] Eulalia Kaplan 02/08/2023 1 [facility] [id number] Eulalia Kaplan [id number] Eulalia Kaplan 02/20/2023 1 [facility] Eulalia Kaplan [id number] Eulalia Kaplan Notes Date Note Type Note Provider Name and Address Organization Details Recorded Time 3 text/html EaracheReported by PatientHPIFor severity, patient reportsworsening. For associated symptoms, patient reportshearing lossandpopping noise in the ears. For location, patient reportsrightandpain inside ear. For quality, patient reportsaching,throbbing, andsharp. 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 DAVID DENISE PA-C [address] [place] [address], [phone], [facility], [place] 02/08/2023 13:41:13 OBGyn Episode No OBEpisode recorded.
--- OUTSIDE RECORDS SUMMARY | 2025-03-19 15:51 | XMS_ITS | Encounter Summary ---
Author Organization [facility] Address [address] [place] [address] Care Team Providers Care Glass Handler Name Role Phone Ciro Ceron MUSIC MANAGER Primary Care Provider [phone] Encounter Details Date Type Department Care Team (Late st Contact Info) Description 03/19/[address] 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
--- OUTSIDE RECORDS SUMMARY | 2025-03-19 15:51 | XMS_ITS | Encounter Summary ---
Author Organization [facility] Address [address] [place] [address] Care Team Providers Care Weatherstrip Machine Operator Name Role Phone Ciro Ceron PUMPER BREWERY Primary Care Provider [phone] Encounter Details Date Type Department Care Team ([facility] st Contact Info) Description 03/14/2006 Outpatient Historical HIS IN BED Logan Diaz Jr., MD NO ADDRESS ON FILE Alexandra Dubois DO NO ADDRESS ON FILE Syncope and Collapse (Primary Dx) Social History Tobacco Use Types Packs/Day Years Used Date Smoking Tobacco: Never Assessed Comments Unknown Sex and Gender Information Value Date Recorded Sex Assigned at Not on file Legal Sex Female 4:49 AM CONTINUOUS IMPROVEMENT ANALYST Gender Identity Not on file Sexual Orientation Not on file documented as of this encounter Plan of Treatment Not on file documented as of this encounter Procedures Procedure Name Priority Date/Time Associated Diagnosis Comments CARDIAC ENZYMES Routine 03/15/2006 8:33 AM CONTINUOUS IMPROVEMENT ANALYST HEPATIC FUNCTION PANEL Routine 6 8:33 AM CONTINUOUS IMPROVEMENT ANALYST CARDIAC ENZYMES Routine 03/15/2006 3:25 AM CONTINUOUS IMPROVEMENT ANALYST CBC WITH DIFFERENTIAL Routine 03/15/2006 3:25 AM CONTINUOUS IMPROVEMENT ANALYST TSH Routine 03/15/2006 3:25 AM CONTINUOUS IMPROVEMENT ANALYST HOMOCYSTEINE Routine 03/15/2006 3:25 AM CONTINUOUS IMPROVEMENT ANALYST LIPID PANEL Routine 03/15/2006 3:25 AM CONTINUOUS IMPROVEMENT ANALYST COMPREHENSIVE METABOLIC PANEL Routine 03/15/2006 3:25 AM CONTINUOUS IMPROVEMENT ANALYST STRESS TEST EXERCISE NUCLEAR MED Routine 03/14/2006 9:24 PM CONTINUOUS IMPROVEMENT ANALYST NM MYOCARD PERF IMAG SPECT MULT Routine 03/14/2006 9:24 [address] CONTIN[address]OUS IMPROVEMENT ANALYST CT HEAD W WO CONTRAST Routine 03/14/2006 9:24 PM CONTINUOUS IMPROVEMENT ANALYST XR CHEST PA OR AP 1 VW Routine 6 9:24 PM CONTINUOUS IMPROVEMENT ANALYST CARDIAC ENZYMES Routine 03/14/2006 7:45 PM CONTINUOUS IMPROVEMENT ANALYST CBC WITH DIFFERENTIAL Routine 03/14/2006 7:45 PM CONTINUOUS IMPROVEMENT ANALYST PTT Routine 03/14/2006 7:45 PM CONTINUOUS IMPROVEMENT ANALYST PROTIME-INR Routine 03/14/2006 7:45 PM CONTINUOUS IMPROVEMENT ANALYST BASIC METABOLIC PANEL Routine 03/14/2006 7:45 PM CONTINUOUS IMPROVEMENT ANALYST documented in this encounter Results * HEPATIC FUNCTION PANEL (03/15/2006 8:33 AM CONTINUOUS IMPROVEMENT ANALYST) TOTAL PROTEIN 7.4 6.3 - 8.2 g/dL INTERFACE SYSTEM ALBUMIN 4.3 3.5 - 5.0 g/dL INTERFACE SYSTEM ALKALINE PHOSPHATASE 76 25 - 100 U/L INTERFACE SYSTEM Comment: As of 05 the [facility] has changed testing methods. The new reference range is 25-100 The old referance range was 38-126 AST 31 8 - 33 U/L INTERFACE SYSTEM Comment: As of 05 the [facility] has changed testing methods. The new reference range is 8-33 The old referance range was Males 17-59 Females 14-36 ALT 30 4 - 36 IU/L INTERFACE SYSTEM Comment: As of 05 the [facility] has changed testing methods. The new reference range is 4-36 The old referance range was Males 21-72 Females 9-52 BILIRUBIN DIRECT 0.1 0.0 - 0.4 mg/dL INTERFACE SYSTEM BILIRUBIN TOTAL 0.3 0.3 - 1.2 mg/dL INTERFACE SYSTEM Comment: As of 05 the [facility] has changed testing methods. The new reference range is 0.3-1.2 The old referance range was 0.2-1.4 03/15/2006 8:33 AM CONTINUOUS IMPROVEMENT ANALYST Alexandra Dubois DO CHEMISTRY ORDERABLES Final Result Performing Organization Address City/[facility] Co de Phone Number INTERFACE SYSTEM Refer to clinic/hospital department * CARDIAC ENZYMES (03/15/2006 8:33 AM CONTINUOUS IMPROVEMENT ANALYST) CKMB 1.9 0.0 - 5.0 ng/mL INTERFACE SYSTEM TROPONIN I <0.1 0.0 - 1.5 ng/mL INTERFACE SYSTEM 03/15/2006 8:33 AM CONTINUOUS IMPROVEMENT ANALYST us Cristhian Titus MD CHEMISTRY ORDERABLES Final Result Performing Organization Address City/[facility] Co de Phone Number INTERFACE SYSTEM Refer to clinic/hospital department * (ABNORMAL) CBC WITH DIFFERENTIAL (03/15/2006 3:25 AM CONTINUOUS IMPROVEMENT ANALYST) WBC 11.5(H) 4.8 - 10.8 K/ul INTERFACE SYSTEM RBC 4.23 4.20 - 5.40 Mil/ul INTERFACE SYSTEM HEMOGLOBIN 12.9 12.0 - 16.0 g/dL INTERFACE SYSTEM HEMATOCRIT 39.3 36.0 - 46.0 % INTERFACE SYSTEM MCV 92.9 84.0 - 103.0 Fl INTERFACE SYSTEM MCH 30.5 27.0 - 34.0 pg INTERFACE SYSTEM MCHC 32.8 30.0 - 35.0 g/dL INTERFACE SYSTEM RDW 13.4 11.0 - 14.5 % INTERFACE SYSTEM PLATELETS 236 140 - 440 K/ul INTERFACE SYSTEM MPV 9.9 8.9 - 12.8 Fl INTERFACE SYSTEM NEUTROPHILS 52.3 42.2 - 75.2 % INTERFACE SYSTEM LYMPHOCYTES 37.3 24.0 - 44.0 % INTERFACE SYSTEM MONOCYTES 8.5 2.0 - 10.0 % INTERFA CE SYSTEM EOSINOPHILS 1.7 0.0 - 7.0 % INTERF TOSHIA SYSTEM BASOPHILS 0.2 0.0 - 1.0 % INTERFAC E SYSTEM NEUTROPHIL ABSOLUTE 6.0 2.0 - 8.0 K/uL INTERFACE SYSTEM LYMPHOCYTE ABSOLUTE 4.3(H) 1.2 - 4.0 K/ul INTERFACE SYSTEM MONOCYTE ABSOLUTE 1.0(H) 0.1 - 0.6 K/ul INTERFACE SYSTEM EOSINOPHIL ABSOLUTE 0.2 0.0 - 0.7 K/ul INTERFACE SYSTEM BASOPHILS ABSOLUTE 0.0 0.0 - 0.2 K/ul INTERFACE SYSTEM PERIPHERAL BLOOD SMEAR REVIEW Automated Diff Automated Diff INTERFACE SYSTEM 03/15/2006 3:25 AM CONTINUOUS IMPROVEMENT ANALYST [facility] C Silvino DO HEMATOLOGY ORDERABLES Final Result Performing Organization Address [facility] Phone Number INTERFACE SYSTEM Refer to clinic/hospital department * TSH (03/15/2006 3:25 AM CONTINUOUS IMPROVEMENT ANALYST) TSH 1.748 0.350 - 5.500 uIU/ml INTERFACE SYSTEM Comment: As of 04 at 3:00 p.m. [facility] has changed the methodology for TSH, and with this change the reference range has changed from 0.49-4.67 to 0.35-5.5 uIU/ml. 03/15/2006 3:25 AM CONTINUOUS IMPROVEMENT ANALYST Patience C Silvino DO CHEMISTRY ORDERABLES Final Result Performing Organization Address [facility] Phone Number INTERFACE SYSTEM Refer to clinic/hospital department * HOMOCYSTEINE, SERUM (03/15/2006 3:25 AM CONTINUOUS IMPROVEMENT ANALYST) HOMOCYSTEINE, SERUM 7.7 5.0 - 11.5 umol/L INTERFACE SYSTEM Comment: As of 04 at 12:00 p.m. [facility] has changed the methodology for Homocysteine, and with this change the reference range has changed for: Males 0-12.5 umol/L Females 0-11.5 umol/L 03/15/2006 3:25 AM CONTINUOUS IMPROVEMENT ANALYST Patience C Silvino DO CHEMISTRY ORDERABLES Final Result INTERFACE SYSTEM Refer to clinic/hospital department * LIPID PANEL (03/15/2006 3:25 AM CONTINUOUS IMPROVEMENT ANALYST) CALCULATED TOTAL CHOLESTEROL TO HDL RATIO 3.49 3.27 - 4.44 INTERFACE SYSTEM CHOLESTEROL 199 75 - 200 mg/dL INTERFACE SYSTEM HDL 57 40 - 60 mg/dL INTERFACE SYSTEM LDL CALCULATED 120 0 - 130 mg/dL INTERFACE SYSTEM TRIGLYCERIDE 110 0 - 200 mg/dL INTERFACE SYSTEM 03/15/2006 3:25 AM CONTINUOUS IMPROVEMENT ANALYST [facility] C Silvino DO CHEMISTRY ORDERABLES Final Result Performing Organization Address [facility] Co de Phone Number INTERFACE SYSTEM Refer to clinic/hospital department * (ABNORMAL) COMPREHENSIVE METABOLIC PANEL (03/15/2006 3:25 AM CONTINUOUS IMPROVEMENT ANALYST) GLUCOSE 90 70 - 110 mg/dL INTERFACE SYSTEM BUN 16 7 - 17 mg/dL INTERFACE SYSTEM CREATININE 0.6(L) 0.7 - 1.2 mg/dL INTERFACE SYSTEM SODIUM 141 136 - 145 mEq/L INTERFACE SYSTEM POTASSIUM 4.1 3.5 - 5.0 mEq/L INTERFACE SYSTEM CHLORIDE 105 95 - 110 mEq/L INTERFACE SYSTEM CO2 29 22 - 32 mmol/l INTERFACE SYSTEM ANION GAP 11 9 - 20 mEq/L INTERFACE SYSTEM OSMOLALITY, CALCULATED 291 275 - 295 mOsm/Kg INTERFACE SYSTEM CALCIUM 9.2 8.4 - 10.5 mg/dL INTERFACE SYSTEM TOTAL PROTEIN 7.2 6.3 - 8.2 g/dL INTERFACE SYSTEM ALBUMIN 4.2 3.5 - 5.0 g/dL INTERFACE SYSTEM GLOBULIN (CALC) 3.0 2.4 - 3.9 g/dL INTERFACE SYSTEM ALBUMIN/GLOBULIN RATIO 1.4 1.0 - 2.3 INTERFACE SYSTEM ALKALINE PHOSPHATASE 74 25 - 100 U/L INTERFACE SYSTEM Comment: As of 05 the [facility] has changed testing methods. The new reference range is 25-100 The old referance range was 38-126 AST 34(H) 8 - 33 U/L INTERFACE SYSTEM Comment: As of 05 the [facility] has changed testing methods. The new reference range is 8-33 The old referance range was Males 17-59 Females 14-36 ALT 25 4 - 36 IU/L INTERFACE SYSTEM Comment: As of 05 the [facility] has changed testing methods. The new reference range is 4-36 The old referance range was Males 21-72 Females 9-52 BILIRUBIN TOTAL 0.3 0.3 - 1.2 mg/dL INTERFACE SYSTEM Comment: As of 05 the [facility] has changed testing methods. The new reference range is 0.3-1.2 The old referance range was 0.2-1.4 03/15/2006 3:25 AM CONTINUOUS IMPROVEMENT ANALYST Alexandra Dubois DO CHEMISTRY ORDERABLES Final Result Performing Organization Address City/[facility] de Phone Number INTERFACE SYSTEM Refer to clinic/hospital department * CARDIAC ENZYMES (03/15/2006 3:25 AM CONTINUOUS IMPROVEMENT ANALYST) CKMB 2.2 0.0 - 5.0 ng/mL INTERFACE SYSTEM TROPONIN I <0.1 0.0 - 1.5 ng/mL INTERFACE SYSTEM 03/15/2006 3:25 AM CONTINUOUS IMPROVEMENT ANALYST Cristhian Titus MD CHEMISTRY ORDERABLES Final Result Performing Organization Address [facility] de Phone Number INTERFACE SYSTEM Refer to clinic/hospital department * CT HEAD W WO CONTRAST (03/14/2006 9:24 PM CONTINUOUS IMPROVEMENT ANALYST) Anatomical Region Laterality Modality Head Other 03/14/2006 9:24 PM CONTINUOUS IMPROVEMENT ANALYST Narrative 03/14/2006 9:[address] scan of the head with and without IV contrast 03/15/2006. History: Syncope. Vomiting. Procedure: A routine CT scan of the head without IV contrast was obtained followed by a routine CTscan of the head with 100 mL of Optiray-240 IV contrast. Findings: The CT scan of the head is normal without focal parenchymal defect, midline shift, ventricularenlargement, or intracranial hemorrhage. There is no abnormal contrast enhancement. The majorcerebral arteries are opacified. Mastoid air cells are aerated. The internal auditory canals arebilaterally symmetrical. Visualized paranasal sinuses are clear. Impression: Normal CT scan of the head with and without IV contrast. - Dictated By: Daisy Reeves M.D. Electronically Signed By: Daisy Reeves M.D. Date Signed: 03/15/06 Procedure Note 03/18/2009 CT scan of the head with and without IV contrast 03/15/2006. History: Syncope. Vomiting. Procedure: A routine CT scan of the head without IV contrast was obtained followed bya routine CTscan of the head with 100 mL of Optiray-240 IV contrast. Findings: The CT scan of the head is normal without focal parenchymal defect,midline shift, ventricularenlargement, or intracranial hemorrhage. There is no abnormalcontrast enhancement. The majorcerebral arteries are opacified. Mastoid air cells are aerated. Theinternal auditory canals arebilaterally symmetrical. Visualized paranasal sinuses are clear. Impression: Normal CT scan of the head with and without IV contrast. - Dictated By: Daisy Reeves M.D. Electronically Signed By: Daisy Reeves M.D. Date Signed: 03/15/[address] ORDERABLES Final Resu lt * XR CHEST PA OR AP (03/14/2006 9:24 PM CONTINUOUS IMPROVEMENT ANALYST) Anatomical Region Laterality Modality Chest Other 03/14/2006 9:24 PM CONTINUOUS IMPROVEMENT ANALYST Narrative 03/14/2006 9:24 PM CONTINUOUS IMPROVEMENT ANALYST Chest: Indication: Chest pain. Findings: The lungs are clear and the heart within normal limits in size. Linear atelectasis versusscar noted at the right lung base medially. Impression: No acute cardiopulmonary disease. Follow-up two view chest may be considered if warranted. - Dictated By: Jorge Jean Baptiste M.D. Electronically Signed By: Jorge Jean Baptiste M.D. Date Signed: 03/15/06 [facility] Procedure Note 03/18/2009 Chest: Indication: Chest pain. Findings: The lungs are clear and the heart within normal limits in size. Linearatelectasis versusscar noted at the right lung base medially. Impression: No acute cardiopulmonary disease. Follow-up two view chest may beconsidered if warranted. - Dictated By: Jorge Jean Baptiste M.D. Electronically Signed By: Jorge Jean Baptiste M.D. Date Signed: 03/15/06 SDM us Historical Provider DIAGNOSTIC IMAGING ORDERABLE S Final Result * NM MYOCARD PERF IMAG SPECT MULT (03/14/2006 9:24 PM CONTINUOUS IMPROVEMENT ANALYST) 03/14/2006 9:24 PM CONTINUOUS IMPROVEMENT ANALYST Narrative INTERFACE SYSTEM - 03/14/2006 9:24 PM CONTINUOUS IMPROVEMENT ANALYST Radionuclide Myocardial Perfusion SPECT Rest/Treadmill Stress Wall Motion and Ejection FractionEvaluation: Radiopharmaceutical: Tc-99m (technetium-99m) MyoviewDose: 10.2 mCi (rest) / 28.3 mCi (stress)Reason for Consultation: Precordial chest pain. Evaluation of myocardial perfusion. The initial static images demonstrate that the heart is overall normal in size. There is a normallevel of activity throughout the lungs. Right ventricular activity appears normal. The leftventricular wall does not appear thickened. The left ventricular cavity did not appear to dilatewith the treadmill stress. The distribution of tracer around the left ventricle is relativelyuniform on the immediate post stress images. There were no areas that showed obvious intervalimprovement in tracer concentration on the resting study. Evaluation of left ventricular wall motion demonstrates normal wall motion and wall thickeningthroughout the left ventricular myocardium. The resting left ventricular ejection fraction was 84 %. Impression: There is no obvious evidence for stress-induced cardiac ischemia or failure on this examination. Thereis normal resting left ventricular systolic function. - Dictated By: Francois Dacosta M.D. Electronically Signed By: Francois Dacosta M.D. Date Signed: 03/16/06 Procedure Note 03/18/2009 Radionuclide Myocardial Perfusion SPECT Rest/Treadmill Stress Wall Motionand Ejection FractionEvaluation: Radiopharmaceutical: Tc-99m (technetium-99m) MyoviewDose: 10.2 mCi (rest) / 28.3 mCi (stress)Reason for Consultation: Precordial chest pain. Evaluation of myocardial perfusion. The initial static images demonstrate that the heart is overall normal insize. There is a normallevel of activity throughout the lungs. Right ventricular activity appears normal.The leftventricular wall does not appear thickened. The left ventricular cavity did not appear todilatewith the treadmill stress. The distribution of tracer around the left ventricle is relativelyuniform onthe immediate post stress images. There were no areas that showed obvious intervalimprovement intracer concentration on the resting study. Evaluation of left ventricular wall motion demonstrates normal wall motionand wall thickeningthroughout the left ventricular myocardium. The resting left ventricular ejection fraction was 84 %. Impression: There is no obvious evidence for stress-induced cardiac ischemia orfailure on this examination. Thereis normal resting left ventricular systolic function. - Dictated By: Francois Dacosta M.D. Electronically Signed By: Francois Dacosta M.D. Date Signed: 03/16/06 us Patience C Silvino DO NM ORDERABLES Final Resul t Performing Organization Address City/State/[facility] Co de Phone Number INTERFACE SYSTEM Refer to clinic/hospital department * STRESS TEST,EXERCISE, NUCLEAR MED (03/14/2006 9:24 PM CONTINUOUS IMPROVEMENT ANALYST) 03/14/2006 9:24 PM CONTINUOUS IMPROVEMENT ANALYST Narrative INTERFACE SYSTEM - 03/14/2006 9:24 PM CONTINUOUS IMPROVEMENT ANALYST Cardiovascular Stress Test with Treadmill Exercise, Monitoring, and Interpretation: Reason for Consultation: Precordial chest pain. Evaluation of myocardial perfusion. This study was supervised and monitored by Dr. Francois Dacosta. The patient was exercised on a treadmill under a standard Morales protocol. . The patient exercised fora total of 8 minutes, completing 2 minutes of stage 3. The heart rate went from a baseline of 66to a peak of 144 beats per minute, which was 87 % of predicted. The blood pressure went [id number] to 138/78 at peak stress. She developed no chest pain or chest discomfort. The exercisewas terminated for fatigue. An ischemic electrocardiographic response was noted with approximately2 to 2.5 mm of horizontal to downsloping ST depression in leads 2, 3, AVF, V4, V5 and V6. Noarrhythmias were induced during or after the procedure. Upon achieving peak tolerable exercise,the above radiopharmaceutical was injected, and the patient continued to exercise for 40 secondslonger. Imaging was started within a few minutes following the cessation of exercise. IMPRESSION: The patient had an ischemic electrocardiographic response to treadmill exercise. No arrhythmias wereinduced during the procedure. Myocardial perfusion imaging report to follow. - Dictated By: Francois Dacosta M.D. Electronically Signed By: Francois Dacosta M.D. Date Signed: 03/16/06 Procedure Note 03/18/2009 Cardiovascular Stress Test with Treadmill Exercise, Monitoring, andInterpretation: Reason for Consultation: Precordial chest pain. Evaluation of myocardial perfusion. This study was supervised and monitored by Dr. Francois Dacosta. The patient was exercised on a treadmill under a standard Morales protocol. . The patient exercised fora total of 8 minutes, completing 2 minutes ofstage 3. The heart rate went from a baseline of 66to a peak of 144 beats per minute, which was 87 % ofpredicted. The blood pressure went [id number] to 138/78 at peak stress. She developed no chest pain orchest discomfort. The exercisewas terminated for fatigue. An ischemic electrocardiographicresponse was noted with approximately2 to 2.5 mm of horizontal to downsloping ST depression inleads 2, 3, AVF, V4, V5 and V6. Noarrhythmias were induced during or after the procedure. Upon achievingpeak tolerable exercise,the above radiopharmaceutical was injected, and the patient continued toexercise for 40 secondslonger. Imaging was started within a few minutes following the cessation ofexercise. IMPRESSION: The patient had an ischemic electrocardiographic response to treadmillexercise. No arrhythmias wereinduced during the procedure. Myocardial perfusion imaging report to follow. - Dictated By: Francois Dacosta M.D. Electronically Signed By: Francois aDcosta M.D. Date Signed: 03/16/06 us Patience C Silvino DO NM ORDERABLES Final Resul t INTERFACE SYSTEM Refer to clinic/hospital department * (ABNORMAL) CBC WITH DIFFERENTIAL (03/14/2006 7:45 PM CONTINUOUS IMPROVEMENT ANALYST) WBC 15.5(H) 4.8 - 10.8 K/ul INTERFACE SYSTEM RBC 4.50 4.20 - 5.40 Mil/ul INTERFACE SYSTEM HEMOGLOBIN 14.1 12.0 - 16.0 g/dL INTERFACE SYSTEM HEMATOCRIT 41.5 36.0 - 46.0 % INTERFACE SYSTEM MCV 92.2 84.0 - 103.0 Fl INTERFACE SYSTEM MCH 31.3 27.0 - 34.0 pg INTERFACE SYSTEM MCHC 34.0 30.0 - 35.0 g/dL INTERFACE SYSTEM RDW 13.3 11.0 - 14.5 % INTERFACE SYSTEM PLATELETS 228 140 - 440 K/ul INTERFACE SYSTEM MPV 10.1 8.9 - 12.8 Fl INTERFACE SYSTEM NEUTROPHILS 77.2(H) 42.2 - 75.2 % INTERFACE SYSTEM LYMPHOCYTES 14.9(L) 24.0 - 44.0 % INTERFACE SYSTEM MONOCYTES 7.1 2.0 - 10.0 % INTERFACE SYSTEM EOSINOPHILS 0.6 0.0 - 7.0 % INTERFACE SYSTEM BASOPHILS 0.2 0.0 - 1.0 % INTERFACE SYSTEM NEUTROPHIL ABSOLUTE 12.0(H) 2.0 - 8.0 K/uL INTERFACE SYSTEM LYMPHOCYTE ABSOLUTE 2.3 1.2 - 4.0 K/ul INTERFACE SYSTEM MONOCYTE ABSOLUTE 1.1(H) 0.1 - 0.6 K/ul INTERFACE SYSTEM EOSINOPHIL ABSOLUTE 0.1 0.0 - 0.7 K/ul INTERFACE SYSTEM BASOPHILS ABSOLUTE 0.0 0.0 - 0.2 K/ul INTERFACE SYSTEM 03/14/2006 7:45 PM CONTINUOUS IMPROVEMENT ANALYST Cristhian Titus MD HEMATOLOGY ORDERABLES [facility] Result INTERFACE SYSTEM Refer to clinic/hospital department * PTT (03/14/2006 7:45 PM CONTINUOUS IMPROVEMENT ANALYST) PTT 22.2 21.5 - 34.4 Secs INTERFACE SYSTEM Comment: Therapeutic Range: Hi-level PE/DVT heparin protocol 90.1 -110 sec Lo-level PE/DVT heparin protocol 75.1 - 95 sec Cardiac Heparin Protocol 85.1 - 100 sec Neuro Heparin Protocol 70.1 - 85 sec As of 05/23/05 note change in APTT Normal Range. 03/14/2006 7:45 PM CONTINUOUS IMPROVEMENT ANALYST Cristhian Titus MD HEMATOLOGY ORDERABLES [facility] Result Performing Organization Address City/[facility] de Phone Number INTERFACE SYSTEM Refer to clinic/hospital department * PROTIME-INR (03/14/2006 7:45 PM CONTINUOUS IMPROVEMENT ANALYST) PROTIME 13.7 13.0 - 15.7 Secs INTERFACE SYSTEM Comment: As of 06 note change in normal range. INR 0.9 INTERFACE SYSTEM Comment: Expected Values for INR: DVT/PE Goal INR 2.5; range 2.0 - 3.0 Valve Replacement Tissue Goal INR 2.5; range 2.0 - 3.0 Mechanical Goal INR 3.0; range 2.5 - 3.5 POST-ND Goal INR 2.5; range 2.0 - 3.0 or Goal 3.0; range 2.5 - 3.5 Atrial Fibrillation Goal INR 2.5; range 2.0 - 3.0 Ischemic Stroke Goal INR 2.5; range 2.0 - 3.0 For additional information see Guidelines for Anticoagulation available from the pharmacy Rosy Ozuna D. 03/14/2006 7:45 PM CONTINUOUS IMPROVEMENT ANALYST Cristhian Titus MD HEMATOLOGY ORDERABLES [facility] Result Performing Organization Address [facility] Phone Number INTERFACE SYSTEM Refer to clinic/hospital department * (ABNORMAL) BASIC METABOLIC PANEL (03/14/2006 7:45 PM CONTINUOUS IMPROVEMENT ANALYST) GLUCOSE 136(H) 70 - 110 mg/dL INTERFACE SYSTEM BUN 22(H) 7 - 17 mg/dL INTERFACE SYSTEM CREATININE 0.6(L) 0.7 - 1.2 mg/dL INTERFACE SYSTEM SODIUM 141 136 - 145 mEq/L INTERFACE SYSTEM POTASSIUM 4.0 3.5 - 5.0 mEq/L INTERFACE SYSTEM Comment:Slight to moderate h emolysis CHLORIDE 103 95 - 110 mEq/L INTERFACE SYSTEM CO2 27 22 - 32 mmol/l INTERFACE SYSTEM ANION GAP 15 9 - 20 mEq/L INTERFACE SYSTEM OSMOLALITY, CALCULATED 295 275 - 295 mOsm/Kg INTERFACE SYSTEM CALCIUM 10.2 8.4 - 10.5 mg/dL INTERFACE SYSTEM 03/14/2006 7:45 PM CONTINUOUS IMPROVEMENT ANALYST Cristhian Titus MD CHEMISTRY ORDERABLES Final Result Performing Organization Address [facility] Phone Number INTERFACE SYSTEM Refer to clinic/hospital department * CARDIAC ENZYMES (03/14/2006 7:45 PM CONTINUOUS IMPROVEMENT ANALYST) CKMB 3.2 0.0 - 5.0 ng/mL INTERFACE SYSTEM TROPONIN I <0.1 0.0 - 1.5 ng/mL INTERFACE SYSTEM 03/14/2006 7:45 PM CONTINUOUS IMPROVEMENT ANALYST Cristhian Titus MD CHEMISTRY ORDERABLES Final Result Performing Organization Address [facility] Phone Number INTERFACE SYSTEM Refer to clinic/hospital department documented in this encounter Visit Diagnoses Diagnosis Syncope and collapse- Primary documented in this encounter Care Teams Weatherstrip Machine Operator Relationship Specialty Start Date End Date Ciro Ceron, PUMPER BREWERY [address] [place] [id number] PCP - General Nurse Practitioner Family 12/05/18 documented as of this encounter
--- OUTSIDE RECORDS SUMMARY | 2025-03-19 15:51 | XMS_ITS | Encounter Summary ---
Author Organization [facility] Address [address] [place] [address] Care Team Providers Care Materials Management Manager Name Role Phone Ciro Ceron HEMATOLOGY SUPERVISOR Primary Care Provider [phone] Encounter Details Date Type Department Care Team (Latest Contact Info) Description 09/11/1999 Outpatient [facility] [address] [place] [phone] Adan Anthony MD NO ADDRESS ON FILE Gynecologic examination (Primary Dx) Social History Tobacco Use Types Packs/Day Years Used Date Smoking Tobacco: Never Assessed Comments Unknown Sex and Gender Information Value Date Recorded Sex Assigned at Not on file Legal Sex Female 4:49 AM FLOW FLOOR ATTENDANT Gender Identity Not on file Sexual Orientation Not on file documented as of this encounter Plan of Treatment Not on file documented as of this encounter Visit Diagnoses Diagnosis Gynecologic examination- Primary Gynecological examination documented in this encounter Care Teams Materials Management Manager Relationship Specialty Start Date End Date Ciro Ceron NP [address] [place] [phone] PCP - General Nurse Practitioner Family 12/05/18 documented as of this encounter
--- OUTSIDE RECORDS SUMMARY | 2025-03-19 15:51 | XMS_ITS | Encounter Summary ---
Author Organization [facility] Address [address] [place] [address] Care Team Providers Care Chucking Machine Set Up Operator Name Role Phone Ciro Ceron THIRD MILLER Primary Care Provider [phone] Encounter Details Date Type Department Care Team (Late st Contact Info) Description 04/23/2007 Outpatient [facility] [address] [place] [place], [place] [address] Non-Staff, Physician NO ADDRESS ON FILE Social History Tobacco Use Types Packs/Day Years Used Date Smoking Tobacco: Never Assessed Comments Unknown Sex and Gender Information Value Date Recorded Sex Assigned at Not on file Legal Sex Female 4:49 AM 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
--- OUTSIDE RECORDS SUMMARY | 2025-03-19 15:51 | XMS_ITS | Encounter Summary ---
Author Organization [facility] Address [address] [place] [address] Care Team Providers Care Reactor Technician Name Role Phone Ciro Ceron NP Primary Care Provider [phone] Encounter Details Date Type Department Care Team (Latest Contact Info) Description 04/20/1998 Outpatient Historical [facility] Rafael, Jorge Thomas MD NO ADDRESS ON FILE Malaise and fatigue (Primary Dx); Other and unspecified noninfectious gastroenteritis and colitis(558.9); Ulcerative colitis, unspecified Social History Tobacco Use Types Packs/Day Years Used Date Smoking Tobacco: Never Assessed Comments Unknown Sex and Gender Information Value Date Recorded Sex Assigned at Not on file Legal Sex Female 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 Gender Identity Not on file Sexual Orientation Not on file documented as of this encounter Plan of Treatment Not on file documented as of this encounter Visit Diagnoses Diagnosis Malaise and fatigue- Primary Other and unspecified noninfectious gastroenteritis and colitis(558.9) Other and unspecified noninfectious gastroenteritis and colitis Ulcerative colitis, unspecified documented in this encounter Care Teams Reactor Technician Relationship Specialty Start Date End Date Ciro Ceron NP [address] [place] [phone] PCP - General Nurse Practitioner Family 12/05/18 documented as of this encounter
--- OUTSIDE RECORDS SUMMARY | 2025-03-19 15:51 | XMS_ITS | Encounter Summary ---
Author Organization [facility] Address [address] [place] [address] Care Team Providers Care Hospitalist Medical Director Name Role Phone Ciro Ceron TECHNICAL MANAGER CHEMICAL PLANT Primary Care Provider [phone] Encounter Details Date Type Department Care Team (Latest Contact Info) Description 07/06/1998 Outpatient Historical HIS [facility] Rafael, Jorge Thomas MD NO ADDRESS ON FILE Absence of menstruation (Primary Dx); Other diseases of lung, not elsewhere classified Social History Tobacco Use Types Packs/Day Years Used Date Smoking Tobacco: Never Assessed Comments Unknown Sex and Gender Information Value Date Recorded Sex Assigned at Not on file Legal Sex Female 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
--- OUTSIDE RECORDS SUMMARY | 2025-03-19 15:51 | XMS_ITS | Encounter Summary ---
Author Organization [facility] Address [address] [place] [address] Care Team Providers Care Repair Armature Winder Name Role Phone Ciro Ceron NP Primary Care Provider [phone] Encounter Details Date Type Department Care Team (Latest Contact Info) Description 07/12/2003 Outpatient Historical [facility] Trevon Azevedo MD NO ADDRESS ON FILE UNSP ABNORMAL MAMMOGRAM (Primary Dx) Social History Tobacco Use Types Packs/Day Years Used Date Smoking Tobacco: Never Assessed Comments Unknown Sex and Gender Information Value Date Recorded Sex Assigned at Not on file 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
--- OUTSIDE RECORDS SUMMARY | 2025-03-19 15:51 | XMS_ITS | Encounter Summary ---
Author Organization [facility] Address [address] [facility] Attn: [place] [address] Care Team Providers Care Online Affiliate Marketing Manager Name Role Phone Ciro Ceron MONUMENT STONECUTTER Primary Care Provider [phone] Encounter Details Date Type Department Care Team ([facility] Contact Info) Description 02/19/2001 Outpatient Historical Non-Staff, Physician NO ADDRESS ON FILE Social History Tobacco Use Types Packs/Day Years Used Date Smoking Tobacco: Never Assessed Comments Unknown Sex and Gender Information Value Date Recorded Sex Assigned at Not on file Legal Sex Female 4:49 AM LAST REPAIRER HELPER Gender Identity Not on file Sexual Orientation Not on file documented as of this encounter Plan of Treatment Not on file documented as of this encounter Visit Diagnoses Not on filedocumented in this encounter Care Teams Online Affiliate Marketing Manager Relationship Specialty Start Date End Date Ciro Ceron NP [address] [place] [address] PCP - General Nurse Practitioner Family 12/05/18 documented as of this encounter
--- OUTSIDE RECORDS SUMMARY | 2025-03-19 15:51 | XMS_ITS | Clinical Summary ---
Author Organization [facility] Address [address] [place] [address] Care Team Providers Care Public Relations Officer Name Role Phone Porter Ceronry Trevon COREMAKER HELPER Primary Care Provider [phone] Allergies Active Allergy Reactions Criticality Noted Date Comments Amoxicillin Rash,Swelling Low 10/16/2008 Sulfa (Sulfonamide Antibiotics) Rash Low 09/28 Medications escitalopram oxalate (LEXAPRO) 20 mg tablet Take 1 Tab by mouth daily. 30 Tab 1 06/13/2014 Active acetaminophen (TYLENOL) 500 mg tablet Take 500 mg by mouth every 6 hours as needed. Active mesalamine delayed release (ASACOL HD) 800 mg table Take 2 Tablets (1,600 mg) by mouth 3 times daily. 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 COOK Gender Identity Not on file Sexual Orientation Not on file Last Filed Vital Signs Vital Sign Reading Time Taken Comments Blood Pressure 129/77 12/05/2018 11:02 AM CDT Pulse 62 12/05/2018 11:02 AM CDT Temperature 36.7 C (98.1 F) 06/25/2015 12:38 PM DINNER COOK Respiratory Rate 14 12/05/2018 11:02 AM CDT Oxygen Saturation 94% 12/05/2018 11:02 AM CDT Inhaled Oxygen Concentration - - Weight 59 kg (130 lb) 11/28/2018 1:27 PM CDT Height 156.2 cm (5' 1.5 ) 11/28/2018 1:27 PM CDT Body Mass Index 24.17 11/28/2018 1:27 PM CDT Plan of Treatment Health Maintenance Due Date Last Done Comments DTAP/TDAP/TD VACCINES (1 - Tdap) 1971 BREAST CANCER SCREENING 1992 FIT-DNA Q 3 years 1997 FIT/FOBT Q 1 year 1997 Flex Sig/CT Colonography Q 5 years 1997 PNEUMOCOCCAL VACCINE 50+ YEA RS (1 of 1 - PCV) 2002 ZOSTER VACCINE (1 of 2) 2002 OSTEOPOROSIS SCREENING 2017 COLORECTAL SCREENING 12/05/2020 12/05/2018, 12/06/19 19 Colorectal Cancer Screening 12/05/2020 INFLUENZA VACCINE (#1) 2024 02/27/2014 RSV VACCINE (60+ or ) (1 - 1-dose 75+ series) 2027 Procedures Procedure Name Priority Date/Time Associated Diagnosis Comments COLONOSCOPY REPORT 12/05/2018 10 :51 AM CDT from Last 3 Months or Most Recently Relevant to Health Maintenance Results * COLONOSCOPY REPORT (12/05/2018 10:51 AM CDT) Narrative Procedure Note Rashaad Negrete MD - 12/05/2018 10:51 AM CDT [facility] Patient Name: Eulalia Kaplan Procedure Date: 12/05/2018 Date of : 1950 Admit Type: Outpatient Age: 68 Attending MD: Rashaad Negrete MD Procedure: Colonoscopy Indications: 68-year-old female who reports a distant history of colitis, recently she developed hematochezia and bowel urgency Providers: Rashaad Negrete MD, Francois Chowdhury, Geneva Lisa Referring MD: Ciro Ceron NP Medicines: Midazolam 7 mg IV, Fentanyl 100 micrograms IV, Sedation Administered by an Endoscopy Nurse Complications: No immediate complications. Estimated blood loss: Minimal. Procedure: After I obtained informed consent, the scope was passed under direct vision. Throughout the procedure, the patient's blood pressure, pulse, and oxygen saturations were monitored continuously. The Colonoscope was introduced through the anus and advanced to the terminal ileum. The entire colon was examined. Estimated Blood Loss: Estimated blood loss was minimal. Findings: There was erythema, friability, and loss of vascular pattern from the anorectal junction to the rectosigmoid junction at 20 cm. The remainder of the visualized colon mucosa was unremarkable throughout. There were a few small diverticula in the sigmoid colon. The terminal ileal mucosa was unremarkable. Four-quadrant biopsies were taken every 10 cm throughout the colon Impression: -Ulcerative proctitis, biopsied -Sigmoid diverticulosis -Otherwise unremarkable colonoscopy to the ileum, random biopsies taken throughout the colon Recommendation: -Await pathology -Hydrocortisone enemas daily x2 weeks -Start Lialda 2.4 g daily -Follow-up in GI clinic Rashaad Negrete MD 12/05/2018 10:51:02 AM Number of Addenda: 0 Note Initiated On: 12/05/2018 10:14 AM Scope Withdrawal Time 0 hours 19 minutes 38 seconds Scope In: 10:24:24 AM Scope Out: 10:48:19 AM [address] [place], [place] Rashaad Negrete MD GI PROCEDURE ORDERABLES F inal Result from Last 3 Months or Most Recently Relevant to Health Maintenance Insurance MEDICARE PART A AND B [place]ICAID [place] Advance Directives For more information, please contact: [phone] * Full Code (Latest Code Status on File) Date Activated Date Inactivated Comments 12/05/2018 9:36 AM 12/05/2018 1:25 PM * Full Code Date Activated Date Inactivated Comments 06/11/2014 11:05 PM 06/13/2014 5:26 PM Care Teams Public Relations Officer Relationship Specialty Start Date End Date Ciro Ceron NP [address] [place] [phone] PCP - General Nurse Practitioner Family 12/05/18
--- OUTSIDE RECORDS SUMMARY | 2025-03-19 15:51 | XMS_ITS | Encounter Summary ---
Author Organization [facility] Address [address] [place] [address] Care Team Providers Care Knapsack Sprayer Name Role Phone JieCiro looney Trevon SOUND ENGINEER Primary Care Provider [phone] Encounter Details Date Type Department Care Team (Latest Contact Info) Description 07/01/2006 Outpatient Historical [facility] Cardiac Solutions Consultant [address] [place] [address] Kimberli Parry MD [address] [facility] [address] [place] [phone] Syncope and Collapse (Primary Dx) Social History Tobacco Use Types Packs/Day Years Used Date Smoking Tobacco: Never Assessed Comments Unknown Sex and Gender Information Value Date Recorded Sex Assigned at Not on file Legal Sex Female 4:49 AM 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 Gender Identity Not on file Sexual Orientation Not on file documented as of this encounter Plan of Treatment Not on file documented as of this encounter Procedures Procedure Name Priority Date/Time Associated Diagnosis Comments PT AND APTT Routine 07/01/2006 6:18 AM 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 CBC WITHOUT DIFFERENTIAL Routine 07/01/2006 6:18 AM 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 BASIC METABOLIC PANEL Routine 07/01/2006 6:18 AM 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 documented in this encounter Results * PT AND APTT (07/01/2006 6:18 AM 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) PROTIME 13.5 13.0 - 15.7 Secs INTERFACE SYSTEM Comment: As of 06 note change in normal range. INR 0.9 INTERFACE SYSTEM Comment: Expected Values for INR: DVT/PE Goal INR 2.5; range 2.0 - 3.0 Valve Replacement Tissue Goal INR 2.5; range 2.0 - 3.0 Mechanical Goal INR 3.0; range 2.5 - 3.5 POST-AL Goal INR 2.5; range 2.0 - 3.0 or Goal 3.0; range 2.5 - 3.5 Atrial Fibrillation Goal INR 2.5; range 2.0 - 3.0 Ischemic Stroke Goal INR 2.5; range 2.0 - 3.0 For additional information see Guidelines for Anticoagulation available from the pharmacy Rosy Ozuna PTT 22.5 21.6 - 35.6 Secs INTERFACE SYSTEM Comment: Therapeutic Range: Hi-level PE/DVT heparin protocol 80.1 -95.0 sec Lo-level PE/DVT heparin protocol 67.1 - 80.0 sec Cardiac Heparin Protocol 67.1 - 85.0 sec Neuro Heparin Protocol 67.1 - 80.0 sec As of 04/04/2006 note change in APTT Normal Range. 07/01/2006 6:18 AM 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 us Kimberli Parry MD HEMATOLOGY ORDERABLES Edited INTERFACE SYSTEM Refer to clinic/hospital department * (ABNORMAL) BASIC METABOLIC PANEL (07/01/2006 6:18 AM 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) GLUCOSE 103 70 - 110 mg/dL INTERFACE SYSTEM BUN 16 7 - 17 mg/dL INTERFACE SYSTEM CREATININE 0.8 0.7 - 1.2 mg/dL INTERFACE SYSTEM SODIUM 141 136 - 145 mEq/L INTERFACE SYSTEM POTASSIUM 5.4(H) 3.5 - 5.0 mEq/L INTERFACE SYSTEM Comment:Specimen moderately hemolyzed CHLORIDE 104 95 - 110 mEq/L INTERFACE SYSTEM CO2 30 22 - 32 mmol/l INTERFACE SYSTEM CALCIUM 10.0 8.4 - 10.5 mg/dL INTERFACE SYSTEM ANION GAP 12 9 - 20 mEq/L INTERFACE SYSTEM OSMOLALITY, CALCULATED 294 275 - 295 mOsm/Kg INTERFACE SYSTEM 07/01/2006 6:18 AM 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 Kimberli Parry MD CHEMISTRY ORDERABLES Edited INTERFACE SYSTEM Refer to clinic/hospital department * (ABNORMAL) CBC WITHOUT DIFFERENTIAL (07/01/2006 6:18 AM 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) WBC 9.8 4.8 - 10.8 K/ul INTERFACE SYSTEM RBC 4.36 4.20 - 5.40 Mil/ul INTERFACE SYSTEM HEMOGLOBIN 13.3 12.0 - 16.0 g/dL INTERFACE SYSTEM HEMATOCRIT 41.2 36.0 - 46.0 % INTERFACE SYSTEM MCV 94.5 84.0 - 103.0 Fl INTERFACE SYSTEM MCH 30.5 27.0 - 34.0 pg INTERFACE SYSTEM MCHC 32.3 30.0 - 35.0 g/dL INTERFACE SYSTEM RDW 13.3 11.0 - 14.5 % INTERFACE SYSTEM PLATELETS 223 140 - 440 K/ul INTERFACE SYSTEM MPV 9.7 8.9 - 12.8 Fl INTERFACE SYSTEM NEUTROPHILS 57.2 42.2 - 75.2 % INTERFACE SYSTEM LYMPHOCYTES 32.7 24.0 - 44.0 % INTERFACE SYSTEM MONOCYTES 7.8 2.0 - 10.0 % INTERFACE SYSTEM EOSINOPHILS 2.1 0.0 - 7.0 % INTERFACE SYSTEM BASOPHILS 0.2 0.0 - 1.0 % INTERFACE SYSTEM NEUTROPHIL ABSOLUTE 5.6 2.0 - 8.0 K/uL INTERFACE SYSTEM LYMPHOCYTE ABSOLUTE 3.2 1.2 - 4.0 K/ul INTERFACE SYSTEM MONOCYTE ABSOLUTE 0.8(H) 0.1 - 0.6 K/ul INTERFACE SYSTEM EOSINOPHIL ABSOLUTE 0.2 0.0 - 0.7 K/ul INTERFACE SYSTEM BASOPHILS ABSOLUTE 0.0 0.0 - 0.2 K/ul INTERFACE SYSTEM 07/01/2006 6:18 AM 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 Kimberli Parry MD HEMATOLOGY ORDERABLES Edited INTERFACE SYSTEM Refer to clinic/hospital department documented in this encounter Visit Diagnoses Diagnosis Syncope and collapse- Primary documented in this encounter Care Teams Knapsack Sprayer Relationship Specialty Start Date End Date Ciro Ceron, SOUND ENGINEER [address] [place] [phone] PCP - General Nurse Practitioner Family 12/05/18 documented as of this encounter
--- OUTSIDE RECORDS SUMMARY | 2025-03-19 15:51 | XMS_ITS | Encounter Summary ---
Author Organization [facility] Address [address] [place] [address] Care Team Providers Care Medical Sociologist Name Role Phone Ciro Ceron NP Primary Care Provider [phone] Encounter Details Date Type Department Care Team (Late st Contact Info) Description 09/11/1999 Outpatient Historical [facility] Adan Anthony MD NO ADDRESS ON FILE Gynecologic examination (Primary Dx); Other ovarian failure Social History Tobacco Use Types Packs/Day Years Used Date Smoking Tobacco: Never Assessed Comments Unknown Sex and Gender Information Value Date Recorded Sex Assigned at Not on file Legal Sex Female 4:49 AM 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
--- OUTSIDE RECORDS SUMMARY | 2025-03-19 15:51 | XMS_ITS | Encounter Summary ---
Author Organization [facility] Address [address] [place] [address] Care Team Providers Care Command And Control Specialist Name Role Phone Ciro Ceron ORDNANCE MECHANIC Primary Care Provider [phone] Encounter Details Date Type Department Care Team (Latest Contact Info) Description 11/16/1998 Outpatient Historical [facility] Dev Boo MD [address] [facility] [address] [place] [address] Sprain of ankle, unspecified site (Primary Dx) Social History Tobacco Use Types Packs/Day Years Used Date Smoking Tobacco: Never Assessed Comments Unknown Sex and Gender Information Value Date Recorded Sex Assigned at Not on file Legal 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
[2025-03-19 15:56] VITALS: BP 116/69; PULSE 83; RESP 18; TEMP 37.4; O2SAT 96
--- NOTE | 2025-03-19 16:02 | XRR_ITS ---
PROCEDURE INFORMATION: Exam: XR Chest Exam date and time: 03/19/2025 4:12 PM Age: 75 years old Clinical indication: Shortness of breath; Additional info: Covid, short of breath TECHNIQUE: Imaging protocol: Radiologic exam of the chest. Views: 1 view. COMPARISON: CR XR chest 1V portable [id number] 05/28/2024 4:51 PM FINDINGS: Tubes, catheters and devices: Left-sided port catheter tip remains in the right atrium. Lungs: Stable small focal opacities in both lower lung narvaez may be chronic. No major consolidation. Pleural spaces: Unremarkable. No pleural effusion. No pneumothorax. Heart/Mediastinum: Unremarkable. No cardiomegaly. Bones/joints: Unremarkable. XR/XR chest 1V portable [id number] IMPRESSION: Stable small focal opacities in both lower lung narvaez may be chronic. No major consolidation.
--- NOTE | 2025-03-19 16:03 | ECG_ITS ---
[facility] Test Date: 2025-03-19 Pat Name: Eulalia Kaplan Department: Room: Gender: Female Mail Handlers Supervisor: : 1950 Requested By: Stephanie Montgomery Order Number: [id number] Jaylin MD: Jose De Jesus Santo M.D. Measurements Intervals [place] Rate: 80 P: 63 MN: 140 QRS: 39 QRSD: 94 T: 44 QT: 379 QTc: 440 Interpretive Statements SINUS RHYTHM NONSPECIFIC ST & T-WAVE ABNORMALITY Compared to ECG 05/28/2024 17:02:15 T-wave abnormality now present Incomplete right bundle-branch block no longer present ST (T wave) deviation no longer present Electronically Signed On 03-20-2025 13:57:49 FUR SORTER by Jose De Jesus Santo M.D. [id number]
--- NOTE | 2025-03-19 16:19 | W.ED.CHESTPA ---
HPI - Chest Pain General: Chief Complaint: Chest Pain Stated Complaint: CP Headache Fever N Coughing ( Covid + @ home) Time Seen by Provider: 03/19/25 16:02 History of Present Illness: Patient is a 75-year-old female with AML, last chemo 2 weeks ago, started having issues on Saturday evening late, 4 days ago, as a chest congestion type feeling in the central area of her chest with shortness of breath, and nonproductive cough. She took a home COVID test yesterday, that was positive. Her primary care physician called in [facility], and she has had 2 doses, last p.m., and today. Last p.m. while resting, oxygen saturation was low, at home, according to patient at 74%. Here, she is 96% on room air, and consistently throughout my interview. She complains of the shortness of breath, chest tightness. No production of cough. Associated symptoms: Reports dyspnea; Deny abdominal pain, fever(s), nausea, palpitations, syncope or vomiting Related Data Home Medications ?Medication ?Instructions ?Recorded ?Confirmed acetaminophen 500 mg tablet 500 mg PO Q6H PRN Pain 12/13/20 03/16/25 (Tylenol Extra Strength) losartan 50 mg tablet 50 mg PO DAILY 08/08/21 03/16/25 biotin 10,000 mcg capsule 10,000 mcg PO DAILY 09/01/21 03/16/25 sennosides 8.6 mg capsule (senna) 8.6 mg PO BEDTIME Constipation 06/11/22 03/16/25 L.acidophil-L.casei-B.bifid-B.longum-FOS 1 cap PO DAILY 10/17/22 03/16/25 2 billion cell-50 mg capsule (Probiotic Blend) levothyroxine 25 mcg tablet 25 mcg PO DAILY 03/20/24 03/16/25 desvenlafaxine succinate 25 mg 25 mg PO DAILY 05/28/24 03/16/25 tablet,extended release 24 hr amlodipine 2.5 mg tablet mg PO 08/10/24 03/16/25 clobetasol 0.05 % topical cream topical 08/10/24 03/16/25 levofloxacin 500 mg tablet 500 mg PO DAILY PRN 10/20/24 03/16/25 cholecalciferol (vitamin D3) 50 50 mcg PO DAILY 02/02/25 03/16/25 mcg (2,000 unit) capsule Previous Rx's ?Medication ?Instructions ?Recorded fluticasone furoate 100 1 inh inhalation DAILY PRN unknown 11/11/23 mcg-vilanterol 25 mcg/dose #60 ea inhalation powder (Breo Ellipta) folic acid 1 mg tablet 1 mg PO DAILY #30 tabs 08/10/24 posaconazole 100 mg tablet,delayed 300 mg (3 x 100 mg) PO QAM #90 tabs 09/01/24 release acyclovir 400 mg tablet See Rx Instructions .Route 10/20/24 .COMPLEX #90 tabs potassium chloride 10 mEq 10 meq PO DAILY #90 caps 10/28/24 capsule,extended release prochlorperazine maleate 10 mg 10 mg PO Q6H PRN nausea and 01/05/25 tablet (Compazine) vomiting #30 tabs megestrol 400 mg/10 mL (40 mg/mL) 400 mg (10 mL) PO BID #480 mL 01/27/25 oral suspension valacyclovir 500 mg tablet 500 mg PO DAILY #30 tabs 02/11/25 (Valtrex) lidocaine-prilocaine 2.5 %-2.5 % See Rx Instructions .Route 03/04/25 topical cream .COMPLEX #30 grams ciprofloxacin HCl 500 mg tablet 500 mg PO Q12H #60 tabs 03/08/25 nirmatrelvir 300 mg (150 mg See Rx Instructions PO .COMPLEX 03/17/25 x2)-ritonavir 100 mg tablet,dose #30 ea pack (Paxlovid) levofloxacin 500 mg tablet 500 mg PO DAILY 7 days #7 tabs 03/19/25 methylprednisolone 4 mg tablets in See Rx Instructions PO .COMPLEX 03/19/25 a dose pack (Medrol (Elmer)) #21 ea Allergies Allergy/AdvReac Type Severity Reaction Status Date / Time adhesive Allergy Unknown Itching/Red Verified 03/16/25 11:56 ness amoxicillin Allergy Rash, Verified 03/16/25 11:56 tongue swelling Penicillins Allergy Rash/tongue Verified 03/16/25 11:56 swelling Sulfa (Sulfonamide Allergy Rash Verified 03/16/25 11:56 Antibiotics) vancomycin AdvReac Mild ADR-Itching Verified 03/16/25 11:56 Review of Systems Const: Denies: fever(s), chills, body aches, fatigue or night sweats Eyes: Denies: change in vision or blurry vision ENMT: Denies: odynophagia, hoarseness, mouth pain, oral sores or change in hearing Card: Reports: chest pain and dyspnea on exertion; Denies: palpitations, irregular heart rhythm, edema, syncope or orthopnea Resp: Reports: dyspnea, non-productive cough and wheezing; Denies: productive cough GI: Denies: abdominal pain, nausea, vomiting, dysphagia, heartburn, diarrhea, constipation, change in bowel habits or hematochezia : Denies: difficulty voiding, urinary frequency, urinary urgency, urinary hesitancy or hematuria Musc: Denies: neck pain, back pain, extremity pain, extremity swelling, joint pain, joint swelling, joint warmth or joint stiffness Skin/Breast: Denies: rash or skin swelling Neuro: Denies: headache(s), numbness in extremities, weakness in extremities, lack of coordination, difficulty walking, frequent falls, dizziness, Slurred speech present or difficulty communicating thoughts Psych: Reports: other (denies insomnia); Denies: anxiety, depression or mood swings Endo: Denies: flushing or hot flashes Mak/Lymph: Denies: easy bruising, easy bleeding or enlarged lymph nodes All/Imm: Denies: urticaria, throat swelling or tongue swelling PFSH ED PFSH: Medical History (Updated 03/19/25 @ 18:30 by ELIDA Alonso) Acquired immunocompromised state Fungal pneumonia History of fungal pneumonia UTI (urinary tract infection) Cough Hyperlipidemia Anxiety and depression COVID-19 Fever AML (acute myeloblastic leukemia) Ulcerative colitis She has had ulcerative colitis since about the age of 32. She is currently not requiring any medication for it. Lichen sclerosus Diagnosed in January 2019 with a vulvar biopsy--- symptoms well controlled with consistent clobetasol use Surgical History Hx of cataract surgery Bilateral cataract excisions Port-A-Cath in place (09/04/21) right IJ S/P section Performed in the via vertical midline infraumbilical incision Family History Sister Hyperlipidemia Hypertension Vulvar cancer Brother Hyperlipidemia Hypertension Diabetes Father Stroke Denies family history of Cervical cancer Colon cancer Ovarian cancer DVT (deep venous thrombosis) Breast cancer Pulmonary embolism Uterine cancer Social History Smoking and tobacco/nicotine status: never used tobacco/nicotine Substance/Drug Use: unknown Physical Exam Const: COMMON NORMALS: no acute distress, average body habitus, patient oriented x3 and alert HENMT: COMMON NORMALS: normocephalic and atraumatic HEAD & SCALP: normocephalic and atraumatic Lymph: LYMPHATIC: no lymphadenopathy noted Chest: COMMONS NORMALS: normal inspection of the chest and normal palpation of entire chest wall Resp: COMMON NORMALS: normal respiratory effort and No retractions EFFORT & INSPECTION: Yes able to speak in complete sentences, Yes symmetric chest movement, No tachypneic and No respiratory distress AUSCULTATION: wheezes expiratory wheezes and scattered wheezes Cardio: COMMON NORMALS: regular rate and regular rhythm RATE: regular rate RHYTHM: regular rhythm GI: COMMON NORMALS: Normal to inspection, nondistended, normoactive bowel sounds present and Soft to palpation PALPATION: Yes Soft to palpation : COMMON NORMALS: Yes no CVA tenderness BLADDER/KIDNEY EXAM: Yes no CVA tenderness Back/Pelvis: COMMON NORMALS: no CVA tenderness Extremity: COMMON NORMALS: normal to inspection, full ROM and capillary refill normal Neuro: COMMON NORMALS: patient oriented x3 SENSORIUM/ORIENTATION: Yes alert Psych: COMMON NORMALS: mental status grossly normal, Normal thought process present, cooperative, normal affect and speech normal SPEECH: Yes normal speech THOUGHT PROCESS: Normal thought process present Course Consultations: Consultation #1: Called Dr. Francisco regarding low WBC. He recommends giving Neupogen 300 mg subcu x 1. Patient is to call the office on Saturday early a.m. to order a CBC. Vital Signs: Vital signs: Vital Signs Temperature 99.4 F 03/19/25 15:56 Pulse Rate 80 03/19/25 17:42 Respiratory Rate 16 03/19/25 17:42 Blood Pressure 139/65 03/19/25 17:42 Pulse Oximetry 98 03/19/25 17:42 Oxygen Delivery Me thod Room Air 03/19/25 17:42 MDM - Chest Pain Medical Decision Making D-dimer elevated. Risk factors include leukemia, COVID. Will obtain CTA of the chest. CBC had to be redrawn due to platelet clumping. Awaiting results for further decision making. Oxygen saturation is 91-96%. The lowest I did see was 91%, and is currently at 92%. On reevaluation, oxygen saturation 95% with good Pleth. Discussed the case with Dr. Francisco that recommended Neupogen, which was my concern as well. He would do 3 days in a row, however this is an outpatient administration, and there is no way to set this up at this time. Dr. Francisco recommended a CBC on Saturday. Discussed with patient to call the office when they open Saturday morning, and have them order an outpatient CBC with auto differential. Patient states understanding. She already has her Levaquin for 7 days, and is on Paxlovid. All her questions answered to her understanding. Medical Records I reviewed the patient's medical records. Lab Data I reviewed the patient's lab results. 03/19/25 18:16 03/19/25 16:28 Radiology Impressions Chest X-Ray 03/19/25 16:02 IMPRESSION: Stable small focal opacities in both lower lung narvaez may be chronic. No major consolidation. Chest CTA 03/19/25 17:22 IMPRESSION: No pulmonary embolus. Improved reticular pulmonary opacities in comparison to 2020 imaging. Mild reticulonodular left lower lobe opacities with volume loss which could be fibroinflammatory in nature versus mild atypical infection. Laboratory Results WBC 0.44 10^3/uL (3.29-11.43) L* 03/19/25 18:16 Corrected WBC Cancelled 03/19/25 16:28 RBC 2.51 10^6/uL (3.85-5.65) L 03/19/25 18:16 Hgb 8.80 g/dL (11.27-16.99) L 03/19/25 18:16 Hct 27.5 % (36-47) L 03/19/25 18:16 MCV 109.6 fl (85-98) H 03/19/25 18:16 MCH 35.1 pg (27-33) H 03/19/25 18:16 MCHC 32.0 g/dL (30-55) 03/19/25 18:16 RDW 17.7 % (12.1-15.1) H 03/19/25 18:16 Plt Count 106 10^3/cmm (157-399) L 03/19/25 18:16 MPV 10.8 fL (7.4-10.4) H 03/19/25 18:16 Gran % Cancelled 03/19/25 16:28 Neut % (Auto) 6.8 % 03/19/25 18:16 Lymph % (Auto) 88.6 % 03/19/25 18:16 Anson % (Auto) 2.3 % 03/19/25 18:16 Eos % (Auto) 2.3 % 03/19/25 18:16 Baso % (Auto) 0.0 % 03/19/25 18:16 Neut # (Auto) 0.03 10^3/uL (1.8-7.7) L* 03/19/25 18:16 Lymph # (Auto) 0.4 10^3/uL (0.8-4.8) L 03/19/25 18:16 Anson # (Auto) 0.0 10^3/uL (0.2-0.9) L 03/19/25 18:16 Eos # (Auto) 0.0 10^3/uL (0.0-0.8) 03/19/25 18:16 Baso # (Auto) 0.0 10^3/uL (0.0-0.1) 03/19/25 18:16 Absolute Gran (auto) Cancelled 03/19/25 16:28 Nucleated RBC % (auto) 0 % 03/19/25 18:16 Nucleated RBCs # 0.0 /100WBC 03/19/25 18:16 D-Dimer 0.87 ug/mLFEU (0-0.59) H 03/19/25 16:28 Sodium 133 mmol/L (136-145) L 03/19/25 16:28 Potassium 4.2 mmol/L (3.5-5.1) 03/19/25 16:28 Chloride 98 mmol/L (98-107) 03/19/25 16:28 Carbon Dioxide 24 mmol/L (22-29) 03/19/25 16:28 Anion Gap 15.2 (5-19) 03/19/25 16:28 BUN 14 mg/dL (8-23) 03/19/25 16:28 Creatinine 0.8 mg/dL (0.5-0.9) 03/19/25 16:28 GFR Calculation Not Reportable 03/19/25 16:28 Glucose 93 mg/dL (65-115) 03/19/25 16:28 Calculated Osmolality 276 mOsm/kg (285-295) L 03/19/25 16:28 Calcium 8.8 mg/dL (8.5-10.5) 03/19/25 16:28 Total Bilirubin 0.8 mg/dL (0.15-1.2) 03/19/25 16:28 AST 17 U/L (0-32) 03/19/25 16:28 ALT 11 U/L (0-33) 03/19/25 16:28 Alkaline Phosphatase 60 U/L (35-105) 03/19/25 16:28 Troponin T Baseline 10 ng/L (0-10) 03/19/25 16:28 NT-Pro-B Natriuret Pep 167 pg/mL (0-125) H 03/19/25 16:28 Total Protein 6.2 g/dL (6.6-8.7) L 03/19/25 16:28 Albumin 4.3 g/dL (3.5-5.2) 03/19/25 16:28 Globulin 1.9 g/dL (1.3-4.6) 03/19/25 16:28 All radiology interpretation(s) finalized by discharge ED provider radiology interpretation(s): No acute findings on my view EKG Data EKG 1: Interpretation: Nonspecific ST segment changes without ST elevation, sinus rhythm Discharge Plan Discharge Patient Disposition: Home Clinical Impression: COVID-19 determined by clinical diagnostic criteria Condition: Stable Prescriptions: New methylprednisolone [Medrol (Elmer)] 4 mg tablets,dose pack See Rx Instructions .ROUTE .COMPLEX Qty: 21 0RF Rx Instructions: for 6 days levofloxacin 500 mg tablet 500 mg PO DAILY 7 Days Qty: 7 0RF No Action acetaminophen [Tylenol Extra Strength] 500 mg tablet 500 mg PO Q6H PRN (Reason: Pain) losartan 50 mg tablet 50 mg PO DAILY senna 8.6 mg capsule 8.6 mg PO BEDTIME clobetasol 0.05 % cream topical amlodipine 2.5 mg tablet PO folic acid 1 mg tablet 1 mg PO DAILY Qty: 30 11RF levofloxacin 500 mg tablet 500 mg PO DAILY PRN acyclovir 400 mg tablet See Rx Instructions .ROUTE .COMPLEX Qty: 90 3RF Dose Instruction: TAKE 1 TABLET BY MOUTH THREE TIMES DAILY at 9am, 2pm and 8pm Rx Instructions: TAKE 1 TABLET BY MOUTH THREE TIMES DAILY at 9am, 2pm and 8pm cholecalciferol (vitamin D3) 50 mcg (2,000 unit) capsule 50 mcg PO DAILY fluticasone furoate-vilanterol [Breo Ellipta] 100-25 mcg/dose blister with device 1 inh inhalation DAILY PRN (Reason: unknown) Qty: 60 0RF posaconazole 100 mg tablet,delayed release (DR/EC) 300 mg PO QAM Qty: 90 11RF Rx Instructions: TAKE 3 TABLETS BY MOUTH EVERY MORNING potassium chloride 10 mEq capsule, extended release 10 meq PO DAILY Qty: 90 3RF prochlorperazine maleate [Compazine] 10 mg tablet 10 mg PO Q6H PRN (Reason: nausea and vomiting) Qty: 30 6RF megestrol 400 mg/10 mL (40 mg/mL) suspension 400 mg PO BID Qty: 480 0RF valacyclovir [Valtrex] 500 mg tablet 500 mg PO DAILY Qty: 30 0RF lidocaine-prilocaine 2.5-2.5 % cream See Rx Instructions .ROUTE .COMPLEX Qty: 30 3RF Dose Instruction: APPLY 45 MINUTES PRIOR TO PORT ACCESS Rx Instructions: APPLY 45 MINUTES PRIOR TO PORT ACCESS ciprofloxacin HCl 500 mg tablet 500 mg PO Q12H Qty: 60 2RF Paxlovid 300 mg (150 mg x 2)-100 mg tablets,dose pack See Rx Instructions PO .COMPLEX Qty: 30 0RF Rx Instructions: take TWO 150 mg tablets of nirmatrelvir with ONE 100 mg tablet of ritonavir twice daily for 5 days PO biotin 10,000 mcg Capsule 10,000 mcg PO DAILY Probiotic Blend 2 billion cell-50 mg Capsule 1 cap PO DAILY Rx Instructions: give with meal/snack desvenlafaxine succinate 25 mg tablet extended release 24 hr 25 mg PO DAILY levothyroxine 25 mcg tablet 25 mcg PO DAILY Discharge Orders: Discharge ED (Routine); Ordered 03/19/25 Ordered By: Stephanie Montgomery Referrals: Mercy Rosales MD [Primary Care Provider, Internal Medicine] Discharge Diet: Usual diet Patient Instructions: COVID-19 (Coronavirus Disease 2019) (ED), Patient Portal & Renetta Instructions Activity Restrictions/Additional Instructions: - Continue your Paxlovid -At the pharmacy: Medrol Dosepak. Have a loved 1 obtain this in the a.m., and use as directed. Levaquin: Dr. Francisco would like a 7-day course of Levaquin given your low blood count -Also: Extremely important to call the office, set your alarm for Saturday a.m., to order an outpatient CBC with Dr. Francisco. - This is still a communicable disease, that harms the elderly, please stay isolated for additional 3 days. -Make sure you return to the ED if your oxygen saturation is lower than 88%, or you are having increasing shortness of breath, chills with underlying fever greater than 100.4 ?F -Call your oncologist on Saturday to review your labs today, and see if you need to have a shot of Neupogen. - Food high in protein is important right now. Thank you for choosing [facility] for your healthcare needs today. You have been screened and evaluated and felt safe for discharge. Health conditions do change or evolve sometimes and as such it is important that you follow up with your Primary Doctor to be re checked, 3-5 days is a general good time frame for follow up. You are always welcome to return to the ED for re assessment if your symptoms are worsening or you have new concerns Print Language: Irish Coding Level of Care Code ED Sliver Cutter for Chg Fwd Heart Score HEART Score Components History: Slightly Suspicous EKG: Normal Age: 65 or more yrs Risk Factors: No Risk Factors Known Troponin: Baseline Trop <16 ng/L HEART Score RESULT HEART Score: 2
[2025-03-19 16:36] VITALS: BP 144/65; PULSE 77; RESP 16; O2SAT 96
[2025-03-19 17:06] LABS: Troponin(5th) Baseline 10 ng/L (0-10)
[2025-03-19 17:22] LABS: Alanine Aminotransferase 11 U/L (0-33); Albumin Level 4.3 g/dL (3.5-5.2); Alkaline Phosphatase 60 U/L (35-105); Anion Gap 15.2 (5-19); Aspartate Amino Transferase 17 U/L (0-32); Blood Urea Nitrogen 14 mg/dL (8-23); Calcium 8.8 mg/dL (8.5-10.5); Carbon Dioxide 24 mmol/L (22-29); Chloride 98 mmol/L (98-107); Globulin 1.9 g/dL (1.3-4.6); Glucose 93 mg/dL (65-115); NT Pro B Type Natriuretic Pept 167 pg/mL (0-125); Osmolality Calculated 276 mOsm/kg (285-295); Potassium 4.2 mmol/L (3.5-5.1); Sodium 133 mmol/L (136-145); Total Protein 6.2 g/dL (6.6-8.7)
--- NOTE | 2025-03-19 17:22 | CTR_ITS ---
PROCEDURE INFORMATION: Exam: CTA Chest With Contrast Exam date and time: 03/19/2025 5:49 PM Age: 75 years old Clinical indication: Pain and abnormal findings; Abnormal diagnostic tests; Elevated d-dimer; Chest pressure; Prior surgery; Surgery date: 6+ months; Surgery type: Port a cath; Chest pain with dimer 0.87. Covid +. History of leukemia. ; Additional info: Elevated d dimer, chest pain TECHNIQUE: Imaging protocol: Computed tomographic angiography of the chest with contrast. Exam focused on the arteries. 3D rendering (Not supervised by radiologist): MIP and/or 3D reconstructed images were created by the technologist. Radiation optimization: All CT scans at this facility use at least one of these dose optimization techniques: automated exposure control; mA and/or kV adjustment per patient size (includes targeted exams where dose is matched to clinical indication); or iterative reconstruction. Contrast material: OMNI 350; Contrast volume: 58 ml; Contrast route: INTRAVENOUS (IV); COMPARISON: CT angio chest [id number] 01/06/2021 8:27 AM RADIATION DOSE METRICS: Total DLP (mGy-cm): 187.46 FINDINGS: Pulmonary arteries: No pulmonary embolus. Aorta: Nonaneurysmal ascending thoracic aorta with plaque. Lungs: Improved reticular opacities in comparison to the 2020 chest CTA. Calcifications and/or bronchiolitis in the anterior basal right lower lobe segment with linear hypoattenuation, similar to prior examination. Left lower lobe volume loss. Somewhat dependent asymmetric reticulonodular opacities in the left lower lobe uncertain if this could be fibroinflammatory in nature; correlate to exclude mild atypical infection Pleural spaces: Unremarkable. No pneumothorax. No pleural effusion. Heart: Unremarkable. No cardiomegaly. No pericardial effusion. Lymph nodes: Calcified lymph nodes are seen suggesting prior granulomatous disease. Prominent noncalcified 10 mm AP window lymph node, similar to prior. Diaphragm: Small hiatal hernia. Spleen: Prominent spleen measuring 13.4 cm AP. Bones/joints: Unremarkable. No acute fracture. Soft tissues: Unremarkable. CT/CT angio chest PE protcl [id number] IMPRESSION: No pulmonary embolus. Improved reticular pulmonary opacities in comparison to 2020 imaging. Mild reticulonodular left lower lobe opacities with volume loss which could be fibroinflammatory in nature versus mild atypical infection.
[2025-03-19 17:42] VITALS: BP 139/65; PULSE 80; RESP 16; O2SAT 98
[2025-03-19] MEDS: iohexol 350 mg/mL 500 mL Btl (per mL) IV (17:57)
[2025-03-19 18:23] LABS: Hematocrit 27.5 % (36-47); Hemoglobin 8.80 g/dL (11.27-16.99); Mean Corpuscular HGB Conc 32.0 g/dL (30-55); Mean Corpuscular Hemoglobin 35.1 pg (27-33); Mean Corpuscular Volume 109.6 fl (85-98); Nucleated Red Blood Cells % 0 %; Platelet Count 106 10^3/cmm (157-399); Red Blood Count 2.51 10^6/uL (3.85-5.65)
[2025-03-19 19:02] LABS: Slide Review Slide Review Perform
[2025-03-19 19:03] LABS: White Blood Count 0.44 10^3/uL (3.29-11.43)
[2025-03-19] MEDS: albuterol 8 gm MDI 2 PUFF INHALATION (19:31)
[2025-03-19 19:49] VITALS: BP 121/71; PULSE 86; RESP 16; O2SAT 94
--- NOTE | 2025-03-22 09:17 | DCPLANNER ---
patient called and said they weren't able to schedule because they didn't see the note from Nolan/Stephanie. I called onc and gave them the info i read from the er report and Radha said to send her through and she'd get her going.
== END 2025-03-19 19:49 | disposition home or self-care (01) ==
PROVIDERS: Emergency Provider Physician Assistant; PCP Internal Medicine
DX: U07.1 COVID-19 (principal); E78.5 Hyperlipidemia, unspecified
CPT/HCPCS: 36415; 71045; 71275; 80053; 83880; 84484; 85025; 85378; 93005; 96372; 99285; J1100; J3535; J9999; Q5101

== ENCOUNTER 2025-03-22 15:39 | Emergency (ER) | payer MEDICARE, SELFPAY ==
--- NOTE | 2025-03-22 15:41 | XRR_ITS ---
PROCEDURE INFORMATION: Exam: XR Chest Exam date and time: 03/22/2025 4:26 PM Age: 75 years old Clinical indication: Shortness of breath; Additional info: SOB TECHNIQUE: Imaging protocol: Radiologic exam of the chest. Views: 1 view. COMPARISON: CT angio chest PE protcl [id number] 03/19/2025 5:49 PM FINDINGS: Tubes, catheters and devices: Left-sided Port-A-Cath. Lungs: Mild linear basilar opacities, similar to recent comparison imaging. Pleural spaces: Unremarkable. No pleural effusion. No pneumothorax. Heart/Mediastinum: Unremarkable. No cardiomegaly. Bones/joints: Unremarkable. XR/XR chest 1V portable [id number] IMPRESSION: Mild linear basilar opacities
--- NOTE | 2025-03-22 15:49 | ECG_ITS ---
[facility]25-[facility]22 Pat Name: Eulalia Kaplan Department: Room: Gender: Female Face Worker: : 1950 Requested By: Rupal Junior Order Number: [id number] Reading MD: Jose De Jesus Santo M.D. Measurements Intervals [place] Rate: 71 P: 69 SD: 129 QRS: 55 QRSD: 91 T: 62 QT: 398 QTc: 435 Interpretive Statements SINUS RHYTHM Compared to ECG 03/19/2025 15:54:42 T-wave abnormality no longer present Electronically Signed On 03-22-2025 17:48:58 ECONOMICS INSTRUCTOR by Jose De Jesus Santo M.D. [id number] [id number]
[2025-03-22 15:51] VITALS: BP 119/48; PULSE 75; RESP 17; TEMP 36.7; O2SAT 98; BMI 22.6
--- NOTE | 2025-03-22 16:33 | W.ED.SOB ---
HPI - SOB/Dyspnea General: Chief Complaint: Shortness of Breath/Dyspnea Stated Complaint: sob, back pain, hoarse voice, prev. covid dx Time Seen by Provider: 03/22/25 16:18 Source: patient Mode of arrival: ambulatory Limitations: no limitations History of Present Illness: HPI Narrative: 75-year-old female who has a history of leukemia states she did have chemotherapy 2 weeks ago patient states that she had cough and congestion was seen here on Saturday and diagnosed with COVID. States had some slight increased shortness of breath along with hoarse voice since then. Oxygen here is 97% on room air. She denies any fevers denies any increased pain Related Data Home Medications ?Medication ?Instructions ?Recorded ?Confirmed acetaminophen 500 mg tablet 500 mg PO Q6H PRN Pain 12/13/20 03/16/25 (Tylenol Extra Strength) losartan 50 mg tablet 50 mg PO DAILY 08/08/21 03/16/25 biotin 10,000 mcg capsule 10,000 mcg PO DAILY 09/01/21 03/16/25 sennosides 8.6 mg capsule (senna) 8.6 mg PO BEDTIME Constipation 06/11/22 03/16/25 L.acidophil-L.casei-B.bifid-B.longum-FOS 1 cap PO DAILY 10/17/22 03/16/25 2 billion cell-50 mg capsule (Probiotic Blend) levothyroxine 25 mcg tablet 25 mcg PO DAILY 03/20/24 03/16/25 desvenlafaxine succinate 25 mg 25 mg PO DAILY 05/28/24 03/16/25 tablet,extended release 24 hr amlodipine 2.5 mg tablet mg PO 08/10/24 03/16/25 clobetasol 0.05 % topical cream topical 08/10/24 03/16/25 levofloxacin 500 mg tablet 500 mg PO DAILY PRN 10/20/24 03/16/25 cholecalciferol (vitamin D3) 50 50 mcg PO DAILY 02/02/25 03/16/25 mcg (2,000 unit) capsule Previous Rx's ?Medication ?Instructions ?Recorded fluticasone furoate 100 1 inh inhalation DAILY PRN unknown 11/11/23 mcg-vilanterol 25 mcg/dose #60 ea inhalation powder (Breo Ellipta) folic acid 1 mg tablet 1 mg PO DAILY #30 tabs 08/10/24 posaconazole 100 mg tablet,delayed 300 mg (3 x 100 mg) PO QAM #90 tabs 09/01/24 release acyclovir 400 mg tablet See Rx Instructions .Route 10/20/24 .COMPLEX #90 tabs potassium chloride 10 mEq 10 meq PO DAILY #90 caps 10/28/24 capsule,extended release prochlorperazine maleate 10 mg 10 mg PO Q6H PRN nausea and 01/05/25 tablet (Compazine) vomiting #30 tabs megestrol 400 mg/10 mL (40 mg/mL) 400 mg (10 mL) PO BID #480 mL 01/27/25 oral suspension lidocaine-prilocaine 2.5 %-2.5 % See Rx Instructions .Route 03/04/25 topical cream .COMPLEX #30 grams ciprofloxacin HCl 500 mg tablet 500 mg PO Q12H #60 tabs 03/08/25 nirmatrelvir 300 mg (150 mg See Rx Instructions PO .COMPLEX 03/17/25 x2)-ritonavir 100 mg tablet,dose #30 ea pack (Paxlovid) levofloxacin 500 mg tablet 500 mg PO DAILY 7 days #7 tabs 03/19/25 methylprednisolone 4 mg tablets in See Rx Instructions PO .COMPLEX 03/19/25 a dose pack (Medrol (Elmer)) #21 ea valacyclovir 500 mg tablet 500 mg PO DAILY #30 tabs 03/22/25 (Valtrex) Allergies Allergy/AdvReac Type Severity Reaction Status Date / Time adhesive Allergy Unknown Itching/Red Verified 03/16/25 11:56 ness amoxicillin Allergy Rash, Verified 03/16/25 11:56 tongue swelling Penicillins Allergy Rash/tongue Verified 03/16/25 11:56 swelling Sulfa (Sulfonamide Allergy Rash Verified 03/16/25 11:56 Antibiotics) vancomycin AdvReac Mild ADR-Itching Verified 03/16/25 11:56 PFS ED PFSH: Medical History (Updated 03/22/25 @ 17:43 by Rupal Junior MD) Acquired immunocompromised state Fungal pneumonia History of fungal pneumonia UTI (urinary tract infection) Cough Hyperlipidemia Anxiety and depression COVID-19 Fever AML (acute myeloblastic leukemia) Ulcerative colitis She has had ulcerative colitis since about the age of 32. She is currently not requiring any medication for it. Lichen sclerosus Diagnosed in January 2019 with a vulvar biopsy--- symptoms well controlled with consistent clobetasol use Surgical History Hx of cataract surgery Bilateral cataract excisions Port-A-Cath in place (09/04/21) right IJ S/P section Performed in the via vertical midline infraumbilical incision Family History Sister Hyperlipidemia Hypertension Vulvar cancer Brother Hyperlipidemia Hypertension Diabetes Father Stroke Denies family history of Cervical cancer Colon cancer Ovarian cancer DVT (deep venous thrombosis) Breast cancer Pulmonary embolism Uterine cancer Social History Smoking and tobacco/nicotine status: never used tobacco/nicotine Substance/Drug Use: unknown Physical Exam Const: COMMON NORMALS: no acute distress, patient oriented x3 and healthy appearing HENMT: COMMON NORMALS: normocephalic and atraumatic HEAD & SCALP: normocephalic and atraumatic Neck/C-Spine: COMMON NORMALS: full ROM and supple Chest: COMMONS NORMALS: normal inspection of the chest Resp: COMMON NORMALS: normal respiratory effort, No retractions, No use of accessory muscles and clear to auscultation bilaterally AUSCULTATION: clear to auscultation bilaterally Cardio: COMMON NORMALS: regular rate, regular rhythm and No murmurs present (Cardio) RATE: regular rate RHYTHM: regular rhythm Extremity: COMMON NORMALS: normal to inspection and full ROM Neuro: COMMON NORMALS: patient oriented x3, moves all extremities and no focal motor deficits Psych: COMMON NORMALS: mental status grossly normal, Normal thought process present and cooperative THOUGHT PROCESS: Normal thought process present Skin: COMMON NORMALS: no rashes or lesions noted and no wounds GENERAL SKIN EXAM: no rashes or lesions noted Course Vital Signs: Vital signs: Vital Signs Temperature 98.1 F 03/22/25 15:51 Pulse Rate 73 03/22/25 16:58 Respiratory Rate 18 03/22/25 16:51 Blood Pressure 119/48 03/22/25 15:51 Pulse Oximetry 95 03/22/25 16:59 Oxygen Delivery Me thod Room Air 03/22/25 16:51 MDM - SOB/Dyspnea Medical Decision Making Patient presents with cough shortness of breath differential includes pneumonia, pneumothorax, viral syndrome. X-ray here showed no definite pneumonia no signs of pneumothorax. EKG here showed normal sinus rhythm heart rate [address] elevation QRS 91 QTc 421. Patient's been in no distress here pulse ox has been normal. Likely short of breath from her COVID did give her breathing treatment here. She has no signs of pulmonary emboli start her antibiotics for prophylaxis as she has neutropenia. She is to follow-up with her oncologist return if worsening she understands agrees to plan Medical Records I reviewed the patient's medical records. Lab Data I reviewed the patient's lab results. 03/22/25 16:22 03/22/25 16:22 Labs/Radiology: Radiology Impressions Chest X-Ray 03/22/25 15:41 IMPRESSION: Mild linear basilar opacities Laboratory Results WBC 0.47 10^3/uL (3.29-11.43) L* 03/22/25 16:22 RBC 2.64 10^6/uL (3.85-5.65) L 03/22/25 16:22 Hgb 9.10 g/dL (11.27-16.99) L 03/22/25 16:22 Hct 29.2 % (36-47) L 03/22/25 16:22 MCV 110.6 fl (85-98) H 03/22/25 16:22 MCH 34.5 pg (27-33) H 03/22/25 16:22 MCHC 31.2 g/dL (30-55) 03/22/25 16:22 RDW 17.9 % (12.1-15.1) H 03/22/25 16:22 Plt Count 214 10^3/cmm (157-399) 03/22/25 16:22 MPV 10.4 fL (7.4-10.4) 03/22/25 16:22 Neut % (Auto) 29.8 % 03/22/25 16:22 Lymph % (Auto) 61.7 % 03/22/25 16:22 [place] % (Auto) 8.5 % 03/22/25 16:22 Eos % (Auto) 0.0 % 03/22/25 16:22 Baso % (Auto) 0.0 % 03/22/25 16:22 Neut # (Auto) 0.14 10^3/uL (1.8-7.7) L* 03/22/25 16:22 Lymph # (Auto) 0.3 10^3/uL (0.8-4.8) L 03/22/25 16:22 [place] # (Auto) 0.0 10^3/uL (0.2-0.9) L 03/22/25 16:22 Eos # (Auto) 0.0 10^3/uL (0.0-0.8) 03/22/25 16:22 Baso # (Auto) 0.0 10^3/uL (0.0-0.1) 03/22/25 16:22 Nucleated RBC % (auto) 0 % 03/22/25 16:22 Nucleated RBCs # 0.0 /100WBC 03/22/25 16:22 Sodium 136 mmol/L (136-145) 03/22/25 16:22 Potassium 4.5 mmol/L (3.5-5.1) 03/22/25 16:22 Chloride 104 mmol/L (98-107) 03/22/25 16:22 Carbon Dioxide 21 mmol/L (22-29) L 03/22/25 16:22 Anion Gap 15.5 (5-19) 03/22/25 16:22 BUN 30 mg/dL (8-23) H 03/22/25 16:22 Creatinine 0.7 mg/dL (0.5-0.9) 03/22/25 16:22 GFR Calculation Not Reportable 03/22/25 16:22 Glucose 213 mg/dL (65-115) H 03/22/25 16:22 Calculated Osmolality 295 mOsm/kg (285-295) 03/22/25 16:22 Calcium 8.7 mg/dL (8.5-10.5) 03/22/25 16:22 Total Bilirubin 0.4 mg/dL (0.15-1.2) 03/22/25 16:22 AST 11 U/L (0-32) 03/22/25 16:22 ALT 13 U/L (0-33) 03/22/25 16:22 Alkaline Phosphatase 48 U/L (35-105) 03/22/25 16:22 NT-Pro-B Natriuret Pep 555 pg/mL (0-125) H 03/22/25 16:22 Total Protein 6.2 g/dL (6.6-8.7) L 03/22/25 16:22 Albumin 3.9 g/dL (3.5-5.2) 03/22/25 16:22 Globulin 2.3 g/dL (1.3-4.6) 03/22/25 16:22 All radiology interpretation(s) finalized by discharge EKG Data EKG 1: I personally reviewed and interpreted this EKG as follows: EKG Interpretation Date: 03/22/25 EKG interpretation time: 15:49 Interpretation: nsr hr [address] elevation qrs 91 qtc 421 Discharge Plan Discharge Patient Disposition: Home Clinical Impression: COVID-19 Condition: Stable Prescriptions: No Action acetaminophen [Tylenol Extra Strength] 500 mg tablet 500 mg PO Q6H PRN (Reason: Pain) losartan 50 mg tablet 50 mg PO DAILY senna 8.6 mg capsule 8.6 mg PO BEDTIME clobetasol 0.05 % cream topical amlodipine 2.5 mg tablet PO folic acid 1 mg tablet 1 mg PO DAILY Qty: 30 11RF levofloxacin 500 mg tablet 500 mg PO DAILY PRN acyclovir 400 mg tablet See Rx Instructions .ROUTE .COMPLEX Qty: 90 3RF Dose Instruction: TAKE 1 TABLET BY MOUTH THREE TIMES DAILY at 9am, 2pm and 8pm Rx Instructions: TAKE 1 TABLET BY MOUTH THREE TIMES DAILY at 9am, 2pm and 8pm cholecalciferol (vitamin D3) 50 mcg (2,000 unit) capsule 50 mcg PO DAILY fluticasone furoate-vilanterol [Breo Ellipta] 100-25 mcg/dose blister with device 1 inh inhalation DAILY PRN (Reason: unknown) Qty: 60 0RF posaconazole 100 mg tablet,delayed release (DR/EC) 300 mg PO QAM Qty: 90 11RF Rx Instructions: TAKE 3 TABLETS BY MOUTH EVERY MORNING potassium chloride 10 mEq capsule, extended release 10 meq PO DAILY Qty: 90 3RF prochlorperazine maleate [Compazine] 10 mg tablet 10 mg PO Q6H PRN (Reason: nausea and vomiting) Qty: 30 6RF megestrol 400 mg/10 mL (40 mg/mL) suspension 400 mg PO BID Qty: 480 0RF lidocaine-prilocaine 2.5-2.5 % cream See Rx Instructions .ROUTE .COMPLEX Qty: 30 3RF Dose Instruction: APPLY 45 MINUTES PRIOR TO PORT ACCESS Rx Instructions: APPLY 45 MINUTES PRIOR TO PORT ACCESS ciprofloxacin HCl 500 mg tablet 500 mg PO Q12H Qty: 60 2RF Paxlovid 300 mg (150 mg x 2)-100 mg tablets,dose pack See Rx Instructions PO .COMPLEX Qty: 30 0RF Rx Instructions: take TWO 150 mg tablets of nirmatrelvir with ONE 100 mg tablet of ritonavir twice daily for 5 days PO valacyclovir [Valtrex] 500 mg tablet 500 mg PO DAILY Qty: 30 0RF biotin 10,000 mcg Capsule 10,000 mcg PO DAILY Probiotic Blend 2 billion cell-50 mg Capsule 1 cap PO DAILY Rx Instructions: give with meal/snack desvenlafaxine succinate 25 mg tablet extended release 24 hr 25 mg PO DAILY methylprednisolone [Medrol (Elmer)] 4 mg tablets,dose pack See Rx Instructions .ROUTE .COMPLEX Qty: 21 0RF Rx Instructions: for 6 days levofloxacin 500 mg tablet 500 mg PO DAILY 7 Days Qty: 7 0RF levothyroxine 25 mcg tablet 25 mcg PO DAILY Discharge Orders: Discharge ED (Routine); Ordered 03/22/25 Ordered By: Rupal Junior Referrals: Mercy Rosales MD [Primary Care Provider, Internal Medicine] - 4-7 days Discharge Diet: Advance as tolerated Discharge Activity: Resume usual activity Patient Instructions: COVID-19 (Coronavirus Disease 2019) (ED) Print Language: Libyan Coding Level of Care Code ED Cement Side Laster for Cb Mccall
[2025-03-22 16:40] LABS: Hematocrit 29.2 % (36-47); Hemoglobin 9.10 g/dL (11.27-16.99); Mean Corpuscular HGB Conc 31.2 g/dL (30-55); Mean Corpuscular Hemoglobin 34.5 pg (27-33); Mean Corpuscular Volume 110.6 fl (85-98); Nucleated Red Blood Cells % 0 %; Platelet Count 214 10^3/cmm (157-399); Red Blood Count 2.64 10^6/uL (3.85-5.65)
--- OUTSIDE RECORDS SUMMARY | 2025-03-22 16:45 | XMS_ITS | Encounter Summary ---
Author Organization [facility] Address [address] [place] [address] Care Team Providers Care Cap Parts Cutter Name Role Phone Ciro Ceron RATE SUPERVISOR Primary Care Provider [phone] Encounter Details Date Type Department Care Team (Late st Contact Info) Description 06/07/2003 Outpatient Historical [facility] Medicine [address] [phone] Sourav Beltran MD [address] [place] [phone] Social History Tobacco Use Types Packs/Day Years Used Date Smoking Tobacco: Never Assessed Comments Unknown Sex and Gender Information Value Date Recorded Sex Assigned at Not on file Legal 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
--- OUTSIDE RECORDS SUMMARY | 2025-03-22 16:45 | XMS_ITS | Encounter Summary ---
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 Gender Identity Not on file Sexual Orientation Not on file documented as of this encounter Plan of Treatment Not on file documented as of this encounter Visit Diagnoses Diagnosis Malaise and fatigue- Primary Other and unspecified noninfectious gastroenteritis and colitis(558.9) Other and unspecified noninfectious gastroenteritis and colitis Ulcerative colitis, unspecified documented in this encounter Care Teams Landscaping And Groundskeeping Laborer Relationship Specialty Start Date End Date Ciro Ceron NP [address] [place] [phone] PCP - General Nurse Practitioner Family 12/05/18 documented as of this encounter
--- OUTSIDE RECORDS SUMMARY | 2025-03-22 16:45 | XMS_ITS | Encounter Summary ---
Author Organization [facility] Address [address] [place] [address] Care Team Providers Care Veterinary Attendant Name Role Phone Ciro Ceron RADIATION TECHNICIAN Primary Care Provider [phone] Encounter Details Date Type Department Care Team (Late st Contact Info) Description 03/19/2006 Outpatient Historical [facility] Cardiology- [place] [address] [place] [address] Kimberli Parry MD [address] [facility] [address] [place] [address] Syncope and Collapse (Primary Dx) Social History Tobacco Use Types Packs/Day Years Used Date Smoking Tobacco: Never Assessed Comments Unknown Sex and Gender Information Value Date Recorded Sex Assigned at Not on file Legal Sex Female 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
--- OUTSIDE RECORDS SUMMARY | 2025-03-22 16:45 | XMS_ITS | Encounter Summary ---
Author Organization [facility] Address [address] [place] [address] Care Team Providers Care Section Hand Name Role Phone Ciro Ceron NP Primary Care Provider [phone] Encounter Details Date Type Department Care Team (Latest Contact Info) Description 07/01/2003 Outpatient [facility] Breast Center [facility] [address] [place], [place] [id number] Trevon Azevedo MD NO ADDRESS ON FILE SCREENING MAMM-MAILG NEOPL-OTHER (Primary Dx) Social History Tobacco Use Types Packs/Day Years Used Date Smoking Tobacco: Never Assessed Comments Unknown Sex and Gender Information Value Date Recorded Sex Assigned at Not on file Legal Sex Female 4:49 AM EXHIBIT TECHNICIAN Gender Identity Not on file Sexual Orientation Not on file documented as of this encounter Plan of Treatment Not on file documented as of this encounter Visit Diagnoses Diagnosis Other screening mammogram- Primary documented in this encounter Care Teams Section Hand Relationship Specialty Start Date End Date Ciro Ceron NP [address] [place] [phone] PCP - General Nurse Practitioner Family 12/05/18 documented as of this encounter
--- OUTSIDE RECORDS SUMMARY | 2025-03-22 16:45 | XMS_ITS | Encounter Summary ---
Author Organization [facility] Address [address] [place] [address] Care Team Providers Care Legal Financial Specialist Name Role Phone JieCiro looney Trevon GREEN BUILDING ENERGY ENGINEER Primary Care Provider [phone] Encounter Details Date Type Department Care Team (Latest Contact Info) Description 07/01/2006 Outpatient Historical [facility] Cardiac Polymer Materials Consultant [address] [place] [address] Kimberli Parry MD [address] [facility] [address] [place] [phone] Syncope and Collapse (Primary Dx) Social History Tobacco Use Types Packs/Day Years Used Date Smoking Tobacco: Never Assessed Comments Unknown Sex and Gender Information Value Date Recorded Sex Assigned at Not on file Legal Sex Female 4:49 AM WHARF TENDER HEAD Gender Identity Not on file Sexual Orientation Not on file documented as of this encounter Plan of Treatment Not on file documented as of this encounter Procedures Procedure Name Priority Date/Time Associated Diagnosis Comments PT AND APTT Routine 07/01/2006 6:18 AM WHARF TENDER HEAD CBC WITHOUT DIFFERENTIAL Routine 07/01/2006 6:18 AM WHARF TENDER HEAD BASIC METABOLIC PANEL Routine 07/01/2006 6:18 AM WHARF TENDER HEAD documented in this encounter Results * PT AND APTT (07/01/2006 6:18 AM WHARF TENDER HEAD) PROTIME 13.5 13.0 - 15.7 Secs INTERFACE SYSTEM Comment: As of 06 note change in normal range. INR 0.9 INTERFACE SYSTEM Comment: Expected Values for INR: DVT/PE Goal INR 2.5; range 2.0 - 3.0 Valve Replacement Tissue Goal INR 2.5; range 2.0 - 3.0 Mechanical Goal INR 3.0; range 2.5 - 3.5 POST-NH Goal INR 2.5; range 2.0 - 3.0 [...] in APTT Normal Range. 07/01/2006 6:18 AM WHARF TENDER HEAD us Kimberli Parry MD HEMATOLOGY ORDERABLES Edited INTERFACE SYSTEM Refer to clinic/hospital department * (ABNORMAL) BASIC METABOLIC PANEL (07/01/2006 6:18 AM WHARF TENDER HEAD) GLUCOSE 103 70 - 110 mg/dL INTERFACE [...] 295 mOsm/Kg INTERFACE SYSTEM 07/01/2006 6:18 AM WHARF TENDER HEAD Kimberli Parry MD CHEMISTRY ORDERABLES Edited INTERFACE SYSTEM Refer to clinic/hospital department * (ABNORMAL) CBC WITHOUT DIFFERENTIAL (07/01/2006 6:18 AM WHARF TENDER HEAD) WBC 9.8 4.8 - 10.8 K/ul INTERFACE [...] 0.2 K/ul INTERFACE SYSTEM 07/01/2006 6:18 AM WHARF TENDER HEAD Kimberli Parry MD HEMATOLOGY ORDERABLES Edited INTERFACE SYSTEM Refer to clinic/hospital department documented in this encounter Visit Diagnoses Diagnosis Syncope and collapse- Primary documented in this encounter Care Teams Legal Financial Specialist Relationship Specialty Start Date End Date Ciro Ceron, GREEN BUILDING ENERGY ENGINEER [address] [place] [phone] PCP - General Nurse Practitioner Family 12/05/18 documented as of this encounter
--- OUTSIDE RECORDS SUMMARY | 2025-03-22 16:45 | XMS_ITS | Encounter Summary ---
Author Organization [facility] Address [address] [place] [address] Care Team Providers Care Pet Caregiver Name Role Phone Ciro Ceron NP Primary Care Provider [phone] Encounter Details Date Type Department Care Team (Late st Contact Info) Description 11/05/[address] 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
--- OUTSIDE RECORDS SUMMARY | 2025-03-22 16:45 | XMS_ITS | Encounter Summary ---
Author Organization [facility] Address [address] [place] [address] Care Team Providers Care Section 8 Property Manager Name Role Phone Ciro Ceron INBOUND CALL CENTER REPRESENTATIVE Primary Care Provider [phone] Encounter Details Date Type Department Care Team ([facility] st Contact Info) Description 03/14/2006 Outpatient Historical HIS IN BED Logan Diaz Jr., MD NO ADDRESS ON FILE Alexandra Dubois DO NO ADDRESS ON FILE Syncope and Collapse (Primary Dx) Social History Tobacco Use Types Packs/Day Years Used Date Smoking Tobacco: Never Assessed Comments Unknown Sex and Gender Information Value Date Recorded Sex Assigned at Not on file Legal Sex Female 4:49 AM FIELD PROJECT MANAGER Gender Identity Not on file Sexual Orientation Not on file documented as of this encounter Plan of Treatment Not on file documented as of this encounter Procedures Procedure Name Priority Date/Time Associated Diagnosis Comments CARDIAC ENZYMES Routine 03/15/2006 8:33 AM FIELD PROJECT MANAGER HEPATIC FUNCTION PANEL Routine 6 8:33 AM FIELD PROJECT MANAGER CARDIAC ENZYMES Routine 03/15/2006 3:25 AM FIELD PROJECT MANAGER CBC WITH DIFFERENTIAL Routine 03/15/2006 3:25 AM FIELD PROJECT MANAGER TSH Routine 03/15/2006 3:25 AM FIELD PROJECT MANAGER HOMOCYSTEINE Routine 03/15/2006 3:25 AM FIELD PROJECT MANAGER LIPID PANEL Routine 03/15/2006 3:25 AM FIELD PROJECT MANAGER COMPREHENSIVE METABOLIC PANEL Routine 03/15/2006 3:25 AM FIELD PROJECT MANAGER STRESS TEST EXERCISE NUCLEAR MED Routine 03/14/2006 9:24 PM FIELD PROJECT MANAGER NM MYOCARD PERF IMAG SPECT MULT Routine 03/14/2006 9:[address] HEAD W WO CONTRAST Routine 03/14/2006 9:24 PM FIELD PROJECT MANAGER XR CHEST PA OR AP 1 VW Routine 6 9:24 PM FIELD PROJECT MANAGER CARDIAC ENZYMES Routine 03/14/2006 7:45 PM FIELD PROJECT MANAGER CBC WITH DIFFERENTIAL Routine 03/14/2006 7:45 PM FIELD PROJECT MANAGER PTT Routine 03/14/2006 7:45 PM FIELD PROJECT MANAGER PROTIME-INR Routine 03/14/2006 7:45 PM FIELD PROJECT MANAGER BASIC METABOLIC PANEL Routine 03/14/2006 7:45 PM FIELD PROJECT MANAGER documented in this encounter Results * HEPATIC FUNCTION PANEL (03/15/2006 8:33 AM FIELD PROJECT MANAGER) TOTAL PROTEIN 7.4 6.3 - 8.2 g/dL [...] INTERFACE SYSTEM Comment: As of [address] [facility] has changed testing methods. The new reference range is 4-36 The old referance range was Males 21-72 Females 9-52 BILIRUBIN DIRECT 0.1 0.0 - 0.4 mg/dL INTERFACE SYSTEM BILIRUBIN TOTAL 0.3 0.3 - 1.2 mg/dL INTERFACE SYSTEM Comment: As of [address] [facility] has changed testing methods. The new reference range is 0.3-1.2 The old referance range was 0.2-1.4 03/15/2006 8:33 AM FIELD PROJECT MANAGER Alexandra Dubois DO CHEMISTRY ORDERABLES Final Result Performing Organization Address City/[facility] Co de Phone Number INTERFACE SYSTEM Refer to clinic/hospital department * CARDIAC ENZYMES (03/15/2006 8:33 AM FIELD PROJECT MANAGER) CKMB 1.9 0.0 - 5.0 ng/mL INTERFACE SYSTEM TROPONIN I <0.1 0.0 - 1.5 ng/mL INTERFACE SYSTEM 03/15/2006 8:33 AM FIELD PROJECT MANAGER us Cristhian Titus MD CHEMISTRY ORDERABLES Final Result Performing Organization Address City/[facility] Co de Phone Number INTERFACE SYSTEM Refer to clinic/hospital department * (ABNORMAL) CBC WITH DIFFERENTIAL (03/15/2006 3:25 AM FIELD PROJECT MANAGER) WBC 11.5(H) 4.8 - 10.8 K/ul INTERFACE [...] Automated Diff INTERFACE SYSTEM 03/15/2006 3:25 AM FIELD PROJECT MANAGER [facility] C Silvino DO HEMATOLOGY ORDERABLES Final Result Performing Organization Address [facility] Phone Number INTERFACE SYSTEM Refer to clinic/hospital department * TSH (03/15/2006 3:25 AM FIELD PROJECT MANAGER) TSH 1.748 0.350 - 5.500 uIU/ml INTERFACE SYSTEM Comment: As of 04 at 3:00 p.m. [facility] has changed the methodology for TSH, and with this change the reference range has changed from 0.49-4.67 to 0.35-5.5 uIU/ml. 03/15/2006 3:25 AM FIELD PROJECT MANAGER Patience C Silvino DO CHEMISTRY ORDERABLES Final Result Performing Organization Address [facility] Phone Number INTERFACE SYSTEM Refer to clinic/hospital department * HOMOCYSTEINE, SERUM (03/15/2006 3:25 AM FIELD PROJECT MANAGER) HOMOCYSTEINE, SERUM 7.7 5.0 - 11.5 umol/L INTERFACE SYSTEM Comment: As of 04 at 12:00 p.m. [facility] has changed the methodology for Homocysteine, and with this change the reference range has changed for: Males 0-12.5 umol/L Females 0-11.5 umol/L 03/15/2006 3:25 AM FIELD PROJECT MANAGER Patience C Silvino DO CHEMISTRY ORDERABLES Final Result INTERFACE SYSTEM Refer to clinic/hospital department * LIPID PANEL (03/15/2006 3:25 AM FIELD PROJECT MANAGER) CALCULATED TOTAL CHOLESTEROL TO HDL RATIO 3.49 3.27 - 4.44 INTERFACE SYSTEM CHOLESTEROL 199 75 - 200 mg/dL INTERFACE SYSTEM HDL 57 40 - 60 mg/dL INTERFACE SYSTEM LDL CALCULATED 120 0 - 130 mg/dL INTERFACE SYSTEM TRIGLYCERIDE 110 0 - 200 mg/dL INTERFACE SYSTEM 03/15/2006 3:25 AM FIELD PROJECT MANAGER [facility] C Silvino DO CHEMISTRY ORDERABLES Final Result Performing Organization Address [facility] Co de Phone Number INTERFACE SYSTEM Refer to clinic/hospital department * (ABNORMAL) COMPREHENSIVE METABOLIC PANEL (03/15/2006 3:25 AM FIELD PROJECT MANAGER) GLUCOSE 90 70 - 110 mg/dL INTERFACE [...] INTERFACE SYSTEM Comment: As of [address] [facility] has changed testing methods. The new reference range is 25-100 The old referance range was 38-126 AST 34(H) 8 - 33 U/L INTERFACE SYSTEM Comment: As of [address] [facility] has changed testing methods. The new reference range is 8-33 The old referance range was Males 17-59 Females 14-36 ALT 25 4 - 36 IU/L INTERFACE SYSTEM Comment: As of [address] [facility] has changed testing methods. The new reference range is 4-36 The old referance range was Males 21-72 Females 9-52 BILIRUBIN TOTAL 0.3 0.3 - 1.2 mg/dL INTERFACE SYSTEM Comment: As of [address] [facility] has changed testing methods. The new reference range is 0.3-1.2 The old referance range was 0.2-1.4 03/15/2006 3:25 AM FIELD PROJECT MANAGER Alexandra Dubois DO CHEMISTRY ORDERABLES Final Result Performing Organization Address City/[facility] de Phone Number INTERFACE SYSTEM Refer to clinic/hospital department * CARDIAC ENZYMES (03/15/2006 3:25 AM FIELD PROJECT MANAGER) CKMB 2.2 0.0 - 5.0 ng/mL INTERFACE SYSTEM TROPONIN I <0.1 0.0 - 1.5 ng/mL INTERFACE SYSTEM 03/15/2006 3:25 AM FIELD PROJECT MANAGER Cristhian Titus MD CHEMISTRY ORDERABLES Final Result Performing Organization Address [facility] de Phone Number INTERFACE SYSTEM Refer to clinic/hospital department * CT HEAD W WO CONTRAST (03/14/2006 9:24 PM FIELD PROJECT MANAGER) Anatomical Region Laterality Modality Head Other 03/14/2006 9:24 PM FIELD PROJECT MANAGER Narrative 03/14/2006 9:[address] scan of the head with and [...] CHEST PA OR AP (03/14/2006 9:24 PM FIELD PROJECT MANAGER) Anatomical Region Laterality Modality Chest Other 03/14/2006 9:24 PM FIELD PROJECT MANAGER Narrative 03/14/2006 9:24 PM FIELD PROJECT MANAGER Chest: Indication: Chest pain. Findings: The lungs are clear and the heart within normal limits in size. Linear atelectasis versusscar noted at the right lung base medially. Impression: No acute cardiopulmonary disease. Follow-up two view chest may be considered if warranted. - Dictated By: Jorge Jean Baptiste M.D. Electronically Signed By: Jorge Jean Baptiste M.D. Date Signed: 03/15/06 [facility] Procedure Note 03/18/2009 Chest: [...] PERF IMAG SPECT MULT (03/14/2006 9:24 PM FIELD PROJECT MANAGER) 03/14/2006 9:24 PM FIELD PROJECT MANAGER Narrative INTERFACE SYSTEM - 03/14/2006 9:24 PM FIELD PROJECT MANAGER Radionuclide Myocardial Perfusion SPECT Rest/Treadmill Stress Wall [...] ORDERABLES Final Resul t Performing Organization Address City/State/[facility] Co de Phone Number INTERFACE SYSTEM Refer to clinic/hospital department * STRESS TEST,EXERCISE, NUCLEAR MED (03/14/2006 9:24 PM FIELD PROJECT MANAGER) 03/14/2006 9:24 PM FIELD PROJECT MANAGER Narrative INTERFACE SYSTEM - 03/14/2006 9:24 PM FIELD PROJECT MANAGER Cardiovascular Stress Test with Treadmill Exercise, Monitoring, [...] % of predicted. The blood pressure went qrni388/82 to 138/78 at peak stress. She developed [...] 87 % ofpredicted. The blood pressure went bidk830/82 to 138/78 at peak stress. She developed [...] (ABNORMAL) CBC WITH DIFFERENTIAL (03/14/2006 7:45 PM FIELD PROJECT MANAGER) WBC 15.5(H) 4.8 - 10.8 K/ul INTERFACE [...] 0.2 K/ul INTERFACE SYSTEM 03/14/2006 7:45 PM FIELD PROJECT MANAGER Cristhian Titus MD HEMATOLOGY ORDERABLES [facility] Result INTERFACE SYSTEM Refer to clinic/hospital department * PTT (03/14/2006 7:45 PM FIELD PROJECT MANAGER) PTT 22.2 21.5 - 34.4 Secs INTERFACE SYSTEM Comment: Therapeutic Range: Hi-level PE/DVT heparin protocol 90.1 -110 sec Lo-level PE/DVT heparin protocol 75.1 - 95 sec Cardiac Heparin Protocol 85.1 - 100 sec Neuro Heparin Protocol 70.1 - 85 sec As of 05/23/05 note change in APTT Normal Range. 03/14/2006 7:45 PM FIELD PROJECT MANAGER Cristhian Titus MD HEMATOLOGY ORDERABLES [facility] Result Performing Organization Address City/[facility] de Phone Number INTERFACE SYSTEM Refer to clinic/hospital department * PROTIME-INR (03/14/2006 7:45 PM FIELD PROJECT MANAGER) PROTIME 13.7 13.0 - 15.7 Secs INTERFACE SYSTEM Comment: As of 06 note change in normal range. INR 0.9 INTERFACE SYSTEM Comment: Expected Values for INR: DVT/PE Goal INR 2.5; range 2.0 - 3.0 Valve Replacement Tissue Goal INR 2.5; range 2.0 - 3.0 Mechanical Goal INR 3.0; range 2.5 - 3.5 POST-TX Goal INR 2.5; range 2.0 - 3.0 or Goal 3.0; range 2.5 - 3.5 Atrial Fibrillation Goal INR 2.5; range 2.0 - 3.0 Ischemic Stroke Goal INR 2.5; range 2.0 - 3.0 For additional information see Guidelines for Anticoagulation available from the pharmacy Rosy Ozuna D. 03/14/2006 7:45 PM FIELD PROJECT MANAGER Cristhian Titus MD HEMATOLOGY ORDERABLES [facility] Result Performing Organization Address [facility] Phone Number INTERFACE SYSTEM Refer to clinic/hospital department * (ABNORMAL) BASIC METABOLIC PANEL (03/14/2006 7:45 PM FIELD PROJECT MANAGER) GLUCOSE 136(H) 70 - 110 mg/dL INTERFACE [...] 10.5 mg/dL INTERFACE SYSTEM 03/14/2006 7:45 PM FIELD PROJECT MANAGER Cristhian Titus MD CHEMISTRY ORDERABLES Final Result Performing Organization Address [facility] Phone Number INTERFACE SYSTEM Refer to clinic/hospital department * CARDIAC ENZYMES (03/14/2006 7:45 PM FIELD PROJECT MANAGER) CKMB 3.2 0.0 - 5.0 ng/mL INTERFACE SYSTEM TROPONIN I <0.1 0.0 - 1.5 ng/mL INTERFACE SYSTEM 03/14/2006 7:45 PM FIELD PROJECT MANAGER Cristhian Titus MD CHEMISTRY ORDERABLES Final Result Performing Organization Address [facility] Phone Number INTERFACE SYSTEM Refer to clinic/hospital department documented in this encounter Visit Diagnoses Diagnosis Syncope and collapse- Primary documented in this encounter Care Teams Section 8 Property Manager Relationship Specialty Start Date End Date Ciro Ceron, INBOUND CALL CENTER REPRESENTATIVE [address] [place] [phone] PCP - General Nurse Practitioner Family 12/05/18 documented as of this encounter
--- OUTSIDE RECORDS SUMMARY | 2025-03-22 16:45 | XMS_ITS | Encounter Summary ---
Author Organization [facility] Address [address] [place] [address] Care Team Providers Care Commutator Inspector Name Role Phone Ciro Ceron MEDICAL GENETICIST Primary Care Provider [phone] Encounter Details Date Type Department Care Team (Latest Contact Info) Description 07/06/1998 Outpatient Historical HIS [facility] INTERNAL MED Rafael, Jorge Thomas MD NO ADDRESS ON FILE Absence of menstruation (Primary Dx); Other diseases of lung, not elsewhere classified Social History Tobacco Use Types Packs/Day Years Used Date Smoking Tobacco: Never Assessed Comments Unknown Sex and Gender Information Value Date Recorded Sex Assigned at Not on file Legal Sex Female 4:49 AM DISASTER RECOVERY ANALYST Gender Identity Not on file Sexual Orientation Not on file documented as of this encounter Plan of Treatment Not on file documented as of this encounter Visit Diagnoses Diagnosis Absence of menstruation- Primary Other diseases of lung, not elsewhere classified documented in this encounter Care Teams Commutator Inspector Relationship Specialty Start Date End Date Ciro Ceron NP [address] [place] [address] PCP - General Nurse Practitioner Family 12/05/18 documented as of this encounter
--- OUTSIDE RECORDS SUMMARY | 2025-03-22 16:45 | XMS_ITS | Encounter Summary ---
Author Organization [facility] Address [address] [place] [address] Care Team Providers Care Mathematical Physicist Name Role Phone Jie Ciro Trevon MILLING SUPERVISOR Primary Care Provider [phone] Encounter Details Date Type Department Care Team (Late st Contact Info) Description 11/14/2005 Emergency [facility] Emergency Department [address] [place] [address] James Lovelace DO NO ADDRESS ON FILE Syncope and Collapse (Primary Dx) Social History Tobacco Use Types Packs/Day Years Used Date Smoking Tobacco: Never Assessed Comments Unknown Sex and Gender Information Value Date Recorded Sex Assigned at Not on file Legal Sex Female 4:49 AM SALES CENTER MANAGER Gender Identity Not on file Sexual [...] Primary documented in this encounter Care Teams Mathematical Physicist Relationship Specialty Start Date End Date Ciro Ceron NP [address] [place] [phone] PCP - General Nurse Practitioner Family 12/05/18 documented as of this encounter
--- OUTSIDE RECORDS SUMMARY | 2025-03-22 16:45 | XMS_ITS | Encounter Summary ---
Author Organization [facility] Address [address] [place] [address] Care Team Providers Care Vessel Crew Member Name Role Phone Ciro Ceron NP Primary Care Provider [phone] Encounter Details Date Type Department Care Team (Late st Contact Info) Description 07/12/2003 [place] [facility] [place] [address] [address] Amada Figueredo MD NO ADDRESS ON FILE SYMPTOMS IN BREAST NEC (Primary Dx) Social History Tobacco Use Types Packs/Day Years Used Date Smoking Tobacco: Never Assessed Comments Unknown Sex and Gender Information Value Date Recorded Sex Assigned at Not on file Legal Sex Female 4:49 AM VESSEL CREW MEMBER Gender Identity Not on file Sexual Orientation Not on file documented as of this encounter Plan of Treatment Not on file documented as of this encounter Visit Diagnoses Diagnosis Other sign and symptom in breast- Primary documented in this encounter Care Teams Vessel Crew Member Relationship Specialty Start Date End Date Ciro Ceron NP [address] [place] [phone] PCP - General Nurse Practitioner Family 12/05/18 documented as of this encounter
--- OUTSIDE RECORDS SUMMARY | 2025-03-22 16:45 | XMS_ITS | Encounter Summary ---
Author Organization [facility] Address [address] [place] [address] Care Team Providers Care Concrete Hopper Operator Name Role Phone Ciro Ceron NP Primary Care Provider Encounter Details Date Type [...] on file Legal Sex Female 4:49 AM NURSING SPECIALIST Gender Identity Not on file Sexual Orientation Not on file documented as of this encounter Plan of Treatment Not on file documented as of this encounter Visit Diagnoses Diagnosis Gynecologic examination- Primary Gynecological examination Other ovarian failure documented in this encounter Care Teams Concrete Hopper Operator Relationship Specialty Start Date End Date Ciro Ceron NP [address] [place] [phone] PCP - General Nurse Practitioner Family 12/05/18 documented as of this encounter
--- OUTSIDE RECORDS SUMMARY | 2025-03-22 16:45 | XMS_ITS | Encounter Summary ---
Author Organization [facility] Address [address] [place] [address] Care Team Providers Care Electrical Wiring Lineman Name Role Phone Ciro Ceron NP Primary Care Provider [phone] Encounter Details Date Type Department Care Team (Latest Contact Info) Description 01/28/1998 Outpatient Historical HIS [facility] INTERNAL MED Rafael, Jorge Thomas MD NO ADDRESS ON FILE Depressive disorder, not elsewhere classified (Primary Dx); Other specified episodic mood disorder (CMS/HCC); Ulcerative colitis, unspecified Social History Tobacco Use Types Packs/Day Years Used Date Smoking Tobacco: Never Assessed Comments Unknown Sex and Gender Information Value Date Recorded Sex Assigned at Not on file Legal Sex Female 4:49 AM RFID SPECIALIST Gender Identity Not on file Sexual Orientation Not on file documented as of this encounter Plan of Treatment Not on file documented as of this encounter Visit Diagnoses Diagnosis Depressive disorder, not elsewhere classified- Primary Other specified episodic mood disorder (CMS/HCC) Other specified episodic mood disorder Ulcerative colitis, unspecified documented in this encounter Care Teams Electrical Wiring Lineman Relationship Specialty Start Date End Date Ciro Ceron NP [address] [place] [phone] PCP - General Nurse Practitioner Family 12/05/18 documented as of this encounter
--- OUTSIDE RECORDS SUMMARY | 2025-03-22 16:45 | XMS_ITS | Encounter Summary ---
Author Organization [facility] Address [address] [place] [address] Care Team Providers Care Screw Machine Set Up Operator Name Role Phone Ciro Ceron DOG LICENSER Primary Care Provider Encounter Details Date Type Department Care Team (Late st Contact Info) Description 07/01/2003 Outpatient [facility] [address] [facility] [address] [place] [address] Amada Figueredo MD NO ADDRESS ON FILE SCREENING MAMM-MAILG NEOPL-OTHER (Primary Dx) Social History Tobacco Use Types Packs/Day Years Used Date Smoking Tobacco: Never Assessed Comments Unknown Sex and Gender Information Value Date Recorded Sex Assigned at Not on file Legal Sex Female 4:49 AM ALUMINUM BOAT ASSEMBLY SUPERVISOR Gender Identity Not on file Sexual Orientation Not on file documented as of this encounter Plan of Treatment Not on file documented as of this encounter Visit Diagnoses Diagnosis Other screening mammogram- Primary documented in this encounter Care Teams Screw Machine Set Up Operator Relationship Specialty Start Date End Date Ciro Ceron NP [address] [place] [phone] PCP - General Nurse Practitioner Family 12/05/18 documented as of this encounter
--- OUTSIDE RECORDS SUMMARY | 2025-03-22 16:45 | XMS_ITS | Encounter Summary ---
Author Organization [facility] Address [address] [place] [address] Care Team Providers Care Telephone Coin Box Collector Name Role Phone Ciro Ceron CHRISTMAS TREE FARMER Primary Care Provider Encounter Details Date Type Department Care Team (Latest Contact Info) Description 11/16/1998 Outpatient Historical HIS [facility] [place] Dev Boo MD [address] [facility] [address] [place] [address] Sprain of ankle, unspecified site (Primary Dx) Social History Tobacco Use Types Packs/Day Years Used Date Smoking Tobacco: Never Assessed Comments Unknown Sex and Gender Information Value Date Recorded Sex Assigned at Not on file Legal Sex Female 4:49 AM HEAD WAITER Gender Identity Not on file Sexual Orientation Not on file documented as of this encounter Plan of Treatment Not on file documented as of this encounter Visit Diagnoses Diagnosis Sprain of ankle, unspecified site- Primary documented in this encounter Care Teams Telephone Coin Box Collector Relationship Specialty Start Date End Date Ciro Ceron NP [address] [place] [phone] PCP - General Nurse Practitioner Family 12/05/18 documented as of this encounter
--- OUTSIDE RECORDS SUMMARY | 2025-03-22 16:45 | XMS_ITS | Encounter Summary ---
Author Organization [facility] Address [address] [facility] Attn: [place] [address] Care Team Providers Care Packaging Machine Supplies Distributor Name Role Phone Ciro Ceron SUPERVISOR PAINTING Primary Care Provider [phone] Encounter Details Date Type Department Care Team ([facility] Contact Info) Description 02/19/2001 Outpatient Historical Non-Staff, Physician NO ADDRESS ON FILE Social History Tobacco Use Types Packs/Day Years Used Date Smoking Tobacco: Never Assessed Comments Unknown Sex and Gender Information Value Date Recorded Sex Assigned at Not on file Legal Sex Female 4:49 AM LIVESTOCK TRUCKER Gender Identity Not on file Sexual Orientation Not on file documented as of this encounter Plan of Treatment Not on file documented as of this encounter Visit Diagnoses Not on filedocumented in this encounter Care Teams Packaging Machine Supplies Distributor Relationship Specialty Start Date End Date Ciro Ceron NP [address] [place] [phone] PCP - General Nurse Practitioner Family 12/05/18 documented as of this encounter
--- OUTSIDE RECORDS SUMMARY | 2025-03-22 16:45 | XMS_ITS | Encounter Summary ---
Author Organization [facility] Address [address] [place] [address] Care Team Providers Care Imaging Technologist Name Role Phone Ciro eCron PRIMER BOXER Primary Care Provider [phone] Encounter Details Date Type Department Care Team (Late st Contact Info) Description 12/04/2006 Outpatient Historical HIS IN BED Kimberli Parry MD [address] [facility] [address] [place] [address] Syncope and Collapse (Primary Dx) Social History Tobacco Use Types Packs/Day Years Used Date Smoking Tobacco: Never Assessed Comments Unknown Sex and Gender Information Value Date Recorded Sex Assigned at Not on file Legal Sex Female 4:49 AM SHIP'S ELECTRONIC WARFARE OFFICER Gender Identity Not on file Sexual [...] Goal INR 3.0; range 2.5 - 3.5 POST-MA Goal INR 2.5; range 2.0 - 3.0 [...] Range. 12/04/2006 7:13 AM CDT us Kimberli Parry MD HEMATOLOGY ORDERABLES Edited [...] MD HEMATOLOGY ORDERABLES Edited Performing Organization Address [facility] Phone Number INTERFACE SYSTEM Refer to clinic/hospital [...] MD CHEMISTRY ORDERABLES Edited Performing Organization Address [facility] Phone Number INTERFACE SYSTEM Refer to clinic/hospital department documented in this encounter Visit Diagnoses Diagnosis Syncope and collapse- Primary documented in this encounter Care Teams Imaging Technologist Relationship Specialty Start Date End Date Ciro Ceron NP [address] [place] [phone] PCP - General Nurse Practitioner Family 12/05/18 documented as of this encounter
--- OUTSIDE RECORDS SUMMARY | 2025-03-22 16:45 | XMS_ITS | Encounter Summary ---
Author Organization [facility] Address [address] [place] [address] Care Team Providers Care Cp Bleacher Operator Name Role Phone Ciro Ceron PLACING JUDGE Primary Care Provider [phone] Encounter Details Date Type Department Care Team (Latest Contact Info) Description 09/11/[address] [facility] [address] [place] [phone] Adan Anthony MD NO ADDRESS ON FILE Gynecologic examination (Primary Dx) Social History Tobacco Use Types Packs/Day Years Used Date Smoking Tobacco: Never Assessed Comments Unknown Sex and Gender Information Value Date Recorded Sex Assigned at Not on file Legal Sex Female 4:49 AM LEAD PERFORMANCE SUPPORT ANALYST Gender Identity Not on file Sexual Orientation Not on file documented as of this encounter Plan of Treatment Not on file documented as of this encounter Visit Diagnoses Diagnosis Gynecologic examination- Primary Gynecological examination documented in this encounter Care Teams Cp Bleacher Operator Relationship Specialty Start Date End Date Ciro Ceron NP [address] [place] [phone] PCP - General Nurse Practitioner Family 12/05/18 documented as of this encounter
--- OUTSIDE RECORDS SUMMARY | 2025-03-22 16:45 | XMS_ITS | Encounter Summary ---
Author Organization [facility] Address [address] [place] [address] Care Team Providers Care Slat Basket Top Maker Name Role Phone Cior Ceron NP Primary Care Provider [phone] Encounter Details Date Type Department Care Team [...] file Legal Sex Female 4:49 AM DIRECTOR SOFTWARE QUALITY ASSURANCE Gender Identity Not on file Sexual Orientation Not on file documented as of this encounter Plan of Treatment Not on file documented as of this encounter Visit Diagnoses Diagnosis Abnormal mammogram, unspecified- Primary documented in this encounter Care Teams Slat Basket Top Maker Relationship Specialty Start Date End Date Ciro Ceron NP [address] [place] [phone] PCP - General Nurse Practitioner Family 12/05/18 documented as of this encounter
--- OUTSIDE RECORDS SUMMARY | 2025-03-22 16:45 | XMS_ITS | Data Portability ---
Author Organization [facility] Marie, L.LDhara, [facility] Address [address] [place] [address] YVONNE JAFFE [phone] Assessment No assessment recorded. Plan of Treatment Reminders Order Date Submit Date Provider Last Modified By Organization Details Last Modified Time Details Appointments None recorded. Lab None recorded. Referral receiving room clerk referral 2022 023 [email or web address] Jake Rivas MD, [address] , [place], [address], 09:36:43 Procedures None recorded. Surgeries None recorded. Imaging None recorded. Medication Orders None recorded. Patient TargetsNo targets recorded. Patient InstructionsNo instructions recorded. 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 Allergies Allergen ID Allergen Name Allergen Category Reaction Reaction Severity Criticality Documentation Date Start Date Code Code System Note Provider Name and Address Organization Details Recorded Time 43046 amoxicill in medicatio n Not available Not available Not available 02/08/2023 723 RxNorm Abigail russell [facility], [facility]CA[facility]na 13:32:59 04858 Substance with sulfonami de structure and antibacte rial mechanism of action (substanc e) medicatio n Not available Not available Not available 02/08/2023 92543 8003 SNOMED Abigail russell [facility], [facility].CA[facility]na 13:33:09 60230 adhesive tape environme nt,medica tion Not available Not available Not available 02/08/2023 Abigail russell [facility], [place] 3 13:33:16 Medications Name Sig Start [...] Details Last Updated DateTime 3 156.21 cm 51440.7 9 g 24.7 kg/m2 97 % 69 /min 97.6 [degF] 122/62 mm[Hg] Abigail Prieto [facility] 3 13:32:16 Social History None recorded. Functional Status None recorded. Mental Status None recorded. Family History Nothing Reported. Medical History No medical history recorded. Gynecological HistoryNo gynecological history recorded. Obstetrics History GPAL:G 0 P 0 0 0 0 Immunizations Vaccine Type Date Status Note Provider Nam e and Address Organization Details Recorded Time Tdap 06/17/2018 completed Abigail russell [facility] 02/08/2023 13:32:43 Past Encounters Encounter ID Performer Location Encounter Start Date Encounter Closed Date Diagnosis/Indication Diagnosis SNOMED-CT Code Diagnosis ICD10 Code Diagnosis IMO Codes Diagnosis Note [id number] DAVID DENISE PA-C [facility] [address] [place] [address] 02/08/2023 13:00:26 02/08/2023 13:41:34 Bilateral hearing loss 05143725 H91.93 no infection or wax. Health Concerns Section Related Observation LastModified by Organization Detai ls LastModified Time None Recorded Concern Status LastModified by Organization Details LastModified Time None Recorded Advance Directives Directive None Recorded Payers Insurance Date Sequence Insurance Name Policy Number Policy Hickey Covered Member ID Hickey Member ID Guarantor Name 02/20/2023 [place] [facility] Eulalia Kaplan [id number] Eulalia Kaplan 02/08/2023 2 [place] Eulalia Kaplan [id number] Eulalia Kaplan 02/08/2023 1 [place] Eulalia Kaplan [id number] Eulalia Kaplan 02/08/2023 1 [facility] [id number] Eulalia Kaplan [id number] Eulalia Kaplan 02/20/2023 1 [facility] [facility] Eulalia Kaplan [id number] Eulalia Kaplan Notes Date Note Type Note [...] of chemo for AML. DAVID DENISE PA-C [address] [place] [address], [phone], [facility] [place] 02/08/2023 13:41:13 OBGyn Episode No OBEpisode recorded.
--- OUTSIDE RECORDS SUMMARY | 2025-03-22 16:46 | XMS_ITS | Patient Health Record ---
Author Organization [facility] Address [address] [place] [address] Care Team Providers Care High Density Talc Coater Operator Name Role Phone Adan Nowak Primary Care Provider Reason For Referral No Information Plan Of Treatment No Information
--- OUTSIDE RECORDS SUMMARY | 2025-03-22 16:46 | XMS_ITS | Encounter Summary ---
Author Organization [facility] Address [address] [place] [address] Care Team Providers Care Spike Machine Heater Name Role Phone Ciro Ceron NP Primary Care Provider [phone] Encounter Details Date Type Department Care Team (Late st Contact Info) Description 09/24/2007 Emergency [facility] Emergency Department [address] 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 Gender Identity Not on file Sexual [...] PM CDT) LEUKOCYTE ESTERASE UA NEGATIVE NEGATIVE [facility] MICRO EXAM No No [facility] KETONES UA NEGATIVE NEGATIVE [facility] COLOR UA Yellow Straw [facility] PROTEIN UA NEGATIVE NEGATIVE [facility] BLOOD UA NEGATIVE NEGATIVE [facility] NITRITE UA NEGATIVE NEGATIVE [facility] UROBILINOGEN UA 0.2 0.2 [facility] CLARITY UA Clear Clear [facility] GLUCOSE UA NEGATIVE NEGATIVE [facility] SPECIFIC GRAVITY UA <=1.005(A) <=1.005 [facility] PH UA 6.0 5.0 - 9.0 [facility] BILIRUBIN UA NEGATIVE NEGATIVE [facility] Urine specimen (specimen) 09/24/2007 1:08 PM CDT 09/24/2007 1:08 PM CDT us Callum Anderson MD URINE ORDERABLES Final Res ult [facility] CLIA# [id number] [address] [place] [address] * (ABNORMAL) CBC WITH DIFFERENTIAL (09/24/2007 12:55 PM CDT) Pathologist [facility] MCHC 33.2 30.0 - 35.0 g/dL [facility] LYMPHOCYTE ABSOLUTE 1.6 1.2 - 4.0 K/ul [facility] LYMPHOCYTES 16.1(L) 24.0 - 44.0 % [facility] MCV 96.4 84.0 - 103.0 Fl [facility] BASOPHILS 0.1 0.0 - 1.0 % [facility] MPV 9.5 8.9 - 12.8 Fl [facility] BASOPHILS ABSOLUTE 0.0 0.0 - 0.2 K/ul [facility] HEMOGLOBIN 13.4 12.0 - 16.0 g/dL [facility] MONOCYTES 5.6 2.0 - 10.0 % [facility] RDW 12.9 11.0 - 14.5 % [facility] MONOCYTE ABSOLUTE 0.6 0.1 - 0.6 K/ul [facility] WBC 9.8 4.8 - 10.8 K/ul [facility] MCH 32.0 27.0 - 34.0 pg [facility] NEUTROPHILS 77.5(H) 42.2 - 75.2 % [facility] NEUTROPHIL ABSOLUTE 7.6 2.0 - 8.0 K/ul [facility] HEMATOCRIT 40.4 36.0 - 46.0 % [facility] PLATELETS 179 140 - 440 K/ul [facility] EOSINOPHIL ABSOLUTE 0.1 0.0 - 0.7 K/ul [facility] EOSINOPHILS 0.7 0.0 - 7.0 % [facility] RBC 4.19(L) 4.20 - 5.40 Mil/ul [facility] Blood specimen (specimen) 09/24/2007 12:55 PM CDT 09/24/2007 12:55 PM CDT us Callum Anderson MD HEMATOLOGY ORDERABLES Umu gotti Result [facility] CLIA# [id number] [address] [place] [address] * LIPASE (09/24/2007 12:55 PM CDT) LIPASE 28 6 - 51 U/L [facility] Blood specimen (specimen) 09/24/2007 12:55 PM CDT 09/24/2007 12:55 PM CDT us Callum Anderson MD CHEMISTRY ORDERABLES Final Result [facility] CLIA# [id number] [address] [place] [address] * (ABNORMAL) COMPREHENSIVE METABOLIC PANEL (09/24/2007 12:55 PM CDT) GLUCOSE 88 70 - 110 mg/dL [facility] CHLORIDE 104 95 - 110 mEq/L [facility] OSMOLALITY, CALCULATED 283 275 - 295 mOsm/Kg [facility] ALKALINE PHOSPHATASE 69 25 - 100 U/L [facility] GLOBULIN (CALC) 2.7 2.4 - 3.9 g/dL [facility] SODIUM 138 136 - 145 mEq/L [facility] BILIRUBIN TOTAL 0.5 0.3 - 1.2 mg/dL [facility] TOTAL PROTEIN 7.1 6.3 - 8.2 g/dL [facility] BUN 14 7 - 17 mg/dL [facility] AST 23 8 - 33 U/L [facility] CO2 30 22 - 32 mmol/l [facility] ALBUMIN/GLOBULIN RATIO 1.6 1.0 - 2.3 [facility] ALBUMIN 4.4 3.5 - 5.0 g/dL [facility] POTASSIUM 3.7 3.5 - 5.0 mEq/L [facility] Comment: Specimen slightly hemolyzed ANION GAP 8(L) 9 - 20 mEq/L [facility] CALCIUM 9.7 8.4 - 10.5 mg/dL [facility] CREATININE 0.6(L) 0.7 - 1.2 mg/dL [facility] ALT 19 4 - 36 IU/L [facility] Blood specimen (specimen) 09/24/2007 12:55 PM CDT 09/24/2007 12:55 PM CDT us Callum Anderson MD CHEMISTRY ORDERABLES Final Result [facility] CLIA# [id number] [address] [place] [address] documented in this encounter Visit Diagnoses Diagnosis Diarrhea Syncope and collapse Ulcerative colitis, unspecified Cardiac dysrhythmia, unspecified Other specified conditions of the tongue Personal history of allergy to sulfonamides Personal history of allergy to other anti-infective agent Other postprocedural status(V45.89) Other postprocedural status Encounter for long-term (current) use of other medications documented in this encounter Care Teams Spike Machine Heater Relationship Specialty Start Date End Date Ciro Ceron NP [address] [place] [address] PCP - General Nurse Practitioner Family 12/05/18 documented as of this encounter
--- OUTSIDE RECORDS SUMMARY | 2025-03-22 16:46 | XMS_ITS | Encounter Summary ---
Author Organization [facility] Address [address] [place] [address] Care Team Providers Care Spiral Spring Winder Name Role Phone Ciro Ceron STAFF NUCLEAR MEDICINE TECHNOLOGIST Primary Care Provider [phone] Encounter Details Date Type Department Care Team (Latest Contact Info) Description 09/30/2007 Outpatient Historical [facility] Cardiovascular Services [address] [place] [address] Kimberli Parry MD [address] [address] Syncope and Collapse Social History Tobacco Use Types Packs/Day Years Used Date Smoking Tobacco: Never Assessed Comments Unknown Sex and Gender Information Value Date Recorded Sex Assigned at Not on file 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
--- OUTSIDE RECORDS SUMMARY | 2025-03-22 16:46 | XMS_ITS | Encounter Summary ---
Author Organization [facility] Address [address] [place] [address] Care Team Providers Care Bss Solution Architect Name Role Phone Ciro Ceron GLASS FINISHER Primary Care Provider [phone] Encounter Details Date Type Department Care Team (Late st Contact Info) Description 04/23/2007 Outpatient [facility] Breast Center [facility] [address] [place], [place] [id number] Non-Staff, Physician NO ADDRESS ON FILE Social History Tobacco Use Types Packs/Day Years Used Date Smoking Tobacco: Never Assessed Comments Unknown Sex and Gender Information Value Date Recorded Sex Assigned at Not on file 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
--- OUTSIDE RECORDS SUMMARY | 2025-03-22 16:46 | XMS_ITS | Clinical Summary ---
Author Organization 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 Gender Identity Not on file Sexual Orientation Not on file Last Filed Vital Signs Vital Sign Reading Time Taken Comments Blood Pressure 129/77 12/05/2018 11:02 AM CDT Pulse 62 12/05/2018 11:02 AM CDT Temperature 36.7 C (98.1 F) 06/25/2015 12:38 PM LOCKSTITCH POCKET SETTER Respiratory Rate 14 12/05/2018 11:02 AM CDT [...] Negrete MD - 12/05/2018 10:51 AM CDT [facility] GI Patient Name: Eulalia Kaplan Procedure Date: [...] Scope Out: 10:48:19 AM [address] [place], [place] Rashaad Negrete MD GI PROCEDURE ORDERABLES F inal Result from Last 3 Months or Most Recently Relevant to Health Maintenance Insurance MEDICARE PART A AND B MEDICAID [place] Advance Directives For more information, please contact: [phone] * Full Code (Latest Code Status on File) Date Activated Date Inactivated Comments 12/05/2018 9:36 AM 12/05/2018 1:25 PM * Full Code Date Activated Date Inactivated Comments 06/11/2014 11:05 PM 06/13/2014 5:26 PM Care Teams Territory Service Representative Relationship Specialty Start Date End Date Ciro Ceron NP [address] [place] [phone] PCP - General Nurse Practitioner Family 12/05/18
--- OUTSIDE RECORDS SUMMARY | 2025-03-22 16:46 | XMS_ITS | Clinical Summary ---
Author Organization [facility] Address [address] [facility] [address] [address] 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 Gender Identity Not on file Sexual Orientation Not on file Last Filed Vital Signs Vital Sign Reading Time Taken Comments Blood Pressure 129/77 12/05/2018 11:02 AM CDT Pulse 62 12/05/2018 11:02 AM CDT Temperature 36.7 C (98.1 F) 06/25/2015 12:38 PM STRIP PRESSER Respiratory Rate 14 12/05/2018 11:02 AM CDT [...] Most Recently Relevant to Health Maintenance Insurance [facility] DUAL COMPLETE HMO [id number] MEDICAID [place] Care Teams Legal Process Specialist Relationship Specialty Start Date End Date Ciro Ceron NP [address] [place] [phone] PCP - General Nurse Practitioner Family 12/05/18
[2025-03-22 16:51] VITALS: PULSE 69; RESP 18; O2SAT 95
[2025-03-22 16:58] VITALS: PULSE 73
[2025-03-22 16:59] VITALS: O2SAT 95
[2025-03-22 16:59] LABS: Slide Review Slide Review Perform
[2025-03-22 17:01] LABS: White Blood Count 0.47 10^3/uL (3.29-11.43)
[2025-03-22 17:10] LABS: Alanine Aminotransferase 13 U/L (0-33); Albumin Level 3.9 g/dL (3.5-5.2); Alkaline Phosphatase 48 U/L (35-105); Anion Gap 15.5 (5-19); Aspartate Amino Transferase 11 U/L (0-32); Blood Urea Nitrogen 30 mg/dL (8-23); Calcium 8.7 mg/dL (8.5-10.5); Carbon Dioxide 21 mmol/L (22-29); Chloride 104 mmol/L (98-107); Creatinine Clr Calc Pharmacy 49.8831; Globulin 2.3 g/dL (1.3-4.6); Glucose 213 mg/dL (65-115); NT Pro B Type Natriuretic Pept 555 pg/mL (0-125); Osmolality Calculated 295 mOsm/kg (285-295); Potassium 4.5 mmol/L (3.5-5.1); Sodium 136 mmol/L (136-145); Total Protein 6.2 g/dL (6.6-8.7)
[2025-03-22 18:21] VITALS: BP 135/56; PULSE 87; O2SAT 98
== END 2025-03-22 18:22 | disposition home or self-care (01) ==
PROVIDERS: Emergency Provider Emergency Medicine; PCP Internal Medicine
DX: U07.1 COVID-19 (principal)
CPT/HCPCS: 36415; 71045; 80053; 83880; 85025; 93005; 94640; 99285; J7040; J9999

== ENCOUNTER 2025-04-20 14:00 | Oncology outpatient (recurring) (ONCR) | payer MEDICARE, SELFPAY ==
[2025-03-30 13:14] LABS: Hematocrit 32.5 % (36-47); Hemoglobin 10.30 g/dL (11.27-16.99); Mean Corpuscular HGB Conc 31.7 g/dL (30-55); Mean Corpuscular Hemoglobin 34.2 pg (27-33); Mean Corpuscular Volume 108.0 fl (85-98); Nucleated Red Blood Cells % 0 %; Platelet Count 126 10^3/cmm (157-399); Red Blood Count 3.01 10^6/uL (3.85-5.65); White Blood Count 3.65 10^3/uL (3.29-11.43)
[2025-03-30 13:30] LABS: Alanine Aminotransferase 10 U/L (0-33); Albumin Level 4.2 g/dL (3.5-5.2); Alkaline Phosphatase 57 U/L (35-105); Anion Gap 16.9 (5-19); Aspartate Amino Transferase 15 U/L (0-32); Blood Urea Nitrogen 16 mg/dL (8-23); Calcium 8.8 mg/dL (8.5-10.5); Carbon Dioxide 24 mmol/L (22-29); Chloride 100 mmol/L (98-107); Globulin 2.4 g/dL (1.3-4.6); Glucose 120 mg/dL (65-115); Osmolality Calculated 286 mOsm/kg (285-295); Potassium 3.9 mmol/L (3.5-5.1); Sodium 137 mmol/L (136-145); Total Protein 6.6 g/dL (6.6-8.7)
[2025-04-06 13:47] LABS: Hematocrit 28.6 % (36-47); Hemoglobin 9.10 g/dL (11.27-16.99); Mean Corpuscular HGB Conc 31.8 g/dL (30-55); Mean Corpuscular Hemoglobin 34.5 pg (27-33); Mean Corpuscular Volume 108.3 fl (85-98); Nucleated Red Blood Cells % 0 %; Platelet Count 188 10^3/cmm (157-399); Red Blood Count 2.64 10^6/uL (3.85-5.65); White Blood Count 2.49 10^3/uL (3.29-11.43)
[2025-04-06 14:16] LABS: Alanine Aminotransferase 10 U/L (0-33); Albumin Level 4.0 g/dL (3.5-5.2); Alkaline Phosphatase 60 U/L (35-105); Anion Gap 15.1 (5-19); Aspartate Amino Transferase 23 U/L (0-32); Blood Urea Nitrogen 13 mg/dL (8-23); Calcium 9.6 mg/dL (8.5-10.5); Carbon Dioxide 24 mmol/L (22-29); Chloride 106 mmol/L (98-107); Globulin 2.7 g/dL (1.3-4.6); Glucose 83 mg/dL (65-115); Osmolality Calculated 291 mOsm/kg (285-295); Potassium 4.1 mmol/L (3.5-5.1); Sodium 141 mmol/L (136-145); Total Protein 6.7 g/dL (6.6-8.7)
[2025-04-13 13:46] LABS: Hematocrit 30.5 % (36-47); Hemoglobin 10.00 g/dL (11.27-16.99); Mean Corpuscular HGB Conc 32.8 g/dL (30-55); Mean Corpuscular Hemoglobin 36.1 pg (27-33); Mean Corpuscular Volume 110.1 fl (85-98); Nucleated Red Blood Cells % 0 %; Platelet Count 143 10^3/cmm (157-399); Red Blood Count 2.77 10^6/uL (3.85-5.65); White Blood Count 3.46 10^3/uL (3.29-11.43)
[2025-04-20 14:01] LABS: Hematocrit 32.4 % (36-47); Hemoglobin 10.60 g/dL (11.27-16.99); Mean Corpuscular HGB Conc 32.7 g/dL (30-55); Mean Corpuscular Hemoglobin 36.2 pg (27-33); Mean Corpuscular Volume 110.6 fl (85-98); Nucleated Red Blood Cells % 0 %; Platelet Count 103 10^3/cmm (157-399); Red Blood Count 2.93 10^6/uL (3.85-5.65); White Blood Count 4.39 10^3/uL (3.29-11.43)
[2025-04-20 14:18] LABS: Alanine Aminotransferase 12 U/L (0-33); Albumin Level 4.4 g/dL (3.5-5.2); Alkaline Phosphatase 68 U/L (35-105); Anion Gap 16.0 (5-19); Aspartate Amino Transferase 25 U/L (0-32); Blood Urea Nitrogen 19 mg/dL (8-23); Calcium 9.4 mg/dL (8.5-10.5); Carbon Dioxide 24 mmol/L (22-29); Chloride 100 mmol/L (98-107); Globulin 1.9 g/dL (1.3-4.6); Glucose 155 mg/dL (65-115); Osmolality Calculated 287 mOsm/kg (285-295); Potassium 4.0 mmol/L (3.5-5.1); Sodium 136 mmol/L (136-145); Total Protein 6.3 g/dL (6.6-8.7)
== END 2025-04-28 23:59 | disposition home or self-care (01) ==
PROVIDERS: Internal Medicine Medical Oncology; PCP Internal Medicine; Visit Provider Nurse Practitioner
DX: Z53.9 Procedure and treatment not carried out, unspecified reason (principal); C92.01 Acute myeloblastic leukemia, in remission; R03.0 Elevated blood-pressure reading, without diagnosis of hypertension; E53.8 Deficiency of other specified B group vitamins; R63.4 Abnormal weight loss; Z68.23 Body mass index [BMI] 23.0-23.9, adult; E55.9 Vitamin D deficiency, unspecified; Z79.899 Other long term (current) drug therapy
CPT/HCPCS: 36415; 36591; 80053; 83615; 85025; 99215